=== PATIENT | female | born 1965 | race Caucasian/White ===

== ENCOUNTER 2022-03-04 16:01 | Outpatient (CLI) | payer BC, SELFPAY ==
[2022-03-04 17:28] LABS: Albumin* 5.1 g/dL (3.3-5.0); Chloride* 102 mmol/L (96-114); Potassium* 4.7 mmol/L (3.6-5.1); Sodium* 139 mmol/L (135-149)
[2022-03-04 17:31] LABS: Alanine Aminotransferase* 30 U/L (4-35); Alkaline Phosphatase* 67 U/L (40-150); Aspartate Amino Transferase* 61 U/L (12-35); Blood Urea Nitrogen* 16 mg/dL (7-30); Calcium* 10.3 mg/dL (8.4-10.6); Carbon Dioxide* 30 mmol/L (20-32); Cholesterol* 269 mg/dL (90-199); Creatinine* 0.9 mg/dL (0.5-1.5); Estimated Glomerular Filt Rate 74 ml/min; Glucose* 97 mg/dL (60-115); Total Protein* 7.8 g/dL (6.0-8.3); Triglycerides* 218 mg/dL (40-149)
[2022-03-04 17:32] LABS: HDL Cholesterol* 58 mg/dL (>=50); LDL Cholesterol Calculated 167 mg/dL (<100)
[2022-03-04 17:48] LABS: Vitamin D 25 Hydroxy* 87 ng/mL (30-80)
== END 2022-03-04 16:02 | disposition home or self-care (01) ==
PROVIDERS: PCP Family Medicine; Visit Provider Family Medicine
DX: Z00.00 Encounter for general adult medical examination without abnormal findings (principal); E78.5 Hyperlipidemia, unspecified; E55.9 Vitamin D deficiency, unspecified; M85.80 Other specified disorders of bone density and structure, unspecified site; E03.9 Hypothyroidism, unspecified; I10 Essential (primary) hypertension; R53.83 Other fatigue
CPT/HCPCS: 80053; 80061; 82306; 84443

== ENCOUNTER 2022-05-05 14:36 | Outpatient (CLI) | payer BC, SELFPAY ==
--- OUTSIDE RECORDS SUMMARY | 2022-05-05 14:38 | XMS_ITS | Clinical Summary ---
:1965 Author Organization [facility] Address [address] [place] [address] Care Team Providers Name Role Phone Elsewhere, Pcp Primary Care Provider Unavailable Source Comments Patient records contain information from all sites at [facility]. For routine questions regarding patient records, call [phone] during business hours, M-F 8:00 AM - 5:00 PM Central Time. Record requests for emergency care only can be directed to [phone] at any time.[facility] Allergies No known active allergies Medications Medication Sig Dispensed Refills Start Date End Date Status cholecalciferol (VITAMIN Take 1 capsule 0 02/13/2020 Active D3) 5,000 Unit capsule (5,000 Units total) by mouth daily. Hold until taking oral diet. Additional Information Patient not taking. Reported on 03/25/2020 fish oil 500 mg capsule Take 1 capsule (500 mg total) by 0 02/13/2020 Active mouth daily. Hold until taking oral diet. Additional Information Patient not taking. Reported on 03/25/2020 lisinopriL (PRINIVIL,ZESTRIL) 10 mg 1 tablet (10 mg total) by 2 02/13/2020 Active tablet gastric tube route daily. Additional Information Patient taking differently: 10 mg oral Daily, Other, Reported on 06/06/2020 acetaminophen (TYLENOL) 500 mg 2 tablets (1,000 mg total) 0 02/13/2020 Active tablet by gastric tube route every 6 (six) hours. Additional Information Patient taking differently: 1,000 mg oral Every 6 hours, Other, Reported on 06/06/2020 ibuprofen (ADVIL,MOTRIN) 200 mg capsule Take 600 mg by mouth every 6 0 Active (six) hours as needed for pain. Active Problems Problem Noted Date Anemia Posthemorrhagic Acute (Blood Loss Anemia) 02/09 Encounter For Screening For Other Viral Diseases (COVI D-19) 01/17/2020 Overview: Added automatically from request for monster bustos [id number] Obstructive Sleep Apnea Adult 12/14/2018 Hypertension Essential Primary 12/14/2018 Osteomyelitis Mandible 12/14/2018 Alcohol Use Unspecified With Unspecified Alcohol Induc ed Disorder 12/14/2018 Osteomyelitis Mandible Chronic 12/13/2018 Overview: Added automatically from request for monster bustos [id number] Social History Tobacco Use Types Packs/Day Years Used Date Smoking Tobacco: Former Cigarettes 1 35 11/21 - 09/25/2019 Smokeless Tobacco: Never Alcohol Use Standard Drinks/Week Comments Yes 14 (1 standard drink = 0.6 oz pure alcoh ol) Sex Assigned at Date Recorded Female 12/22/2018 12:54 PM CDT Last Filed Vital Signs Vital Sign Reading Time Taken Comments Blood Pressure 153/93 06/06/2020 1:20 PM CDT Pulse 69 06/06/2020 1:25 PM CDT Temperature 36.5 ??C (97.7 ??F) 06/06/2020 11:50 AM CDT Respiratory Rate 19 06/06/2020 12:55 PM CDT Oxygen Saturation 96% 06/06/2020 1:25 PM CDT Inhaled Oxygen Concentration - - Weight 81.4 kg (179 lb 7.3 oz) 06/06/2020 8:30 AM CDT Height 173.5 cm (5' 8.31) 06/06/2020 8:30 AM CDT Body Mass Index 27.04 06/06/2020 8:30 AM CDT Plan of Treatment Upcoming Encounters Date Type Specialty Care Team Description 05/12/2022 Appointment Radiology Jamel Terrazas APRN, C.N.P., D. N.P. [address] [place] [phone] (Vasiliy ac) 05/12/2022 Appointment Oral and Maxillofacial Issac Woodward, Leo Cline, D.D.S. [address] [place] [phone] (Vasiliy ac) Health Maintenance Due Date Last Done Comments CT Colonography 1965 Cologuard 1965 Colonoscopy 1965 Colorectal Cancer Screening 1965 FIT 1965 Hepatitis B Vaccines (1 of 1965 3 - 3-dose series) Hepatitis C Screening 1965 Lipid (Cholesterol) 1965 Screening Lung Cancer Screening 1965 Mammogram 1965 Office Visit for Blood 1963 Pressure Check / Re-check COVID-19 Vaccine (#1) 1965 Zoster Vaccines (1 of 2) 2013 Potassium Level 02/11/2021 02/12/2020, 02/10/2020, 02/09/2020, Additional history exists Sodium Level 02/11/2021 02/12/2020, 02/10/2020, 02/09/2020, Additional history exists Depression Screening 08/22/2021 (Annual PHQ-2) Creatinine Level 05/11/2022 05/11/2021, 02/12/2020, 02/10/2020, Additional history exists Influenza Vaccine (#1) 2022 09/07/2019 Fasting Glucose for 02/11/2023 02/12/2020, 02/10/2020, Diabetes Screening 02/09/2020, Additional history exists DTaP,Tdap,and Td Vaccines 09/07/2029 09/07/2019 (2 - Td or Tdap) HIV Screening Completed 12/14/2018 Pneumococcal vaccine (0-64 Aged Out No lo nger eligible years) based on patient 's age to complete this topic Medical Devices Implanted Type Area Public Health Device Identifier Shelf Model / Expiration Serial / Date Lot Cplr Tioga Vasc Anstm 3 - [id number] Hardware e.g. Right: Sy novis [id number] 07/07/2024 [id number] / Implanted: Qty: 1 on 02/07/2020 by Issac Mo M.D., D.D.S. at [facility] pins/screws/r Neck / ods [id number] Abtmnt Hl Brnmk Granite Polisher Machine 4.5x5.0 - [id number] Hardware e.g. N obel [employer] 03/22/2023 [id number] / Implanted: Qty: 1 on 06/06/2020 by Anand Meier M.D., D.D.S. at [facility] pins/screws/r / ods [id number] Ips Implant Mandible Misc LORE Damon [id number] / Implanted: Qty: 1 on 02/07/2020 by Issac oM M.D., D.D.S. at [facility] Prosthesis / Insurance Payer Benefit Plan Subscriber ID Effective Phone Address Typ e / Group Dates GENERIC GENERIC [id number] 2020-Pres [phone] n[address] COMMERCIAL VISION PLAN ent [phone] [place] [address] BLUE CROSS BLUE [place] [id number] 2021-Pres [phone] [address] PPO SHIELD ent [phone] [place] [address] Advance Directives For more information, please contact: [phone] Latest Code Status on File Code Status Date Activated Date Inactivated Comments Full Code 02/07/2020 6:14 PM 02/13/2020 3:58 PM Full Code: Discussed Care Teams Transactional Paralegal Relationship Specialty Start Date End Date Elsewhere, Pcp PCP - General Family Medicine 09/22/20
--- OUTSIDE RECORDS SUMMARY | 2022-05-05 14:38 | XMS_ITS | Encounter Summary ---
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 N.P. [address] [place] [phone] (Wo rk) 05/12/2022 Appointment Oral and Maxillofacial Issac Woodward, Surgery Marlyn, D.D.S. [address] [place] [phone] (Wo rk) documented as of this encounter Procedures Procedure Name Priority Date/Time Associated Comments Diagnosis ORAL AND MAXILLOFACIAL Routine 05/11/2021 12:00 R esults for this SURGERY IMAGE EXAM AM CDT procedure are in the results section. documented in this encounter Results Face, Mouth-Engine Inspector Image Exam (05/11/2021 12:00 AM CDT) Specimen (Source) Anatomical Location Collection Method / Collectio n Time Received Time / Laterality Volume Narrative IIMS - 05/12/2021 11:26 AM CDT This order has been created and auto-finalized to support the import of images acquired without order. The clini nury documentation to support these images can be found on the encounter benny t produced images. Provider Not In System IMG NON RAD IMAGING PROCEDUR ES Performing Organization Address City/State/ZIP Code Phon e Number IIMS IIMS NA documented in this encounter Visit Diagnoses Not on filedocumented in this encounter Care Teams Gaming Cashier Relationship Specialty Start Date End Date Elsewhere, Pcp PCP - General Family Medicine 09/22/20 documented as of this encounter
--- OUTSIDE RECORDS SUMMARY | 2022-05-05 14:38 | XMS_ITS | Encounter Summary ---
:1965 Author Organization [facility] Address [address] [place] [address] Care Team Providers Name Role Phone Elsewhere, Pcp Primary Care Provider Unavailable Encounter Details Date Type Department Care Team Description 09/21/2021 Clinical Communication Division of Oral and Crissy, Issac Maxillofacial Surgery in S, Jerilyn. , D.D.S. [place], [place] [address] [facility] [address] [place] [phone] Social History Tobacco Use Types Packs/Day Years Used Date Smoking Tobacco: Former Cigarettes 1 35 11/21 - 09/25/2019 Smokeless Tobacco: Never Alcohol Use Standard Drinks/Week Comments Yes 14 (1 standard drink = 0.6 oz pure alcoh ol) Sex Assigned at Date Recorded Female 12/22/2018 12:54 PM CDT documented as of this encounter Miscellaneous Notes Telephone Encounter - Alyssa Salas - 09/21/2021 11:04 AM CST Patient called in about $8,307 that was supposed to be written off. Request sent on 12/09/2020 via e-mail. At this time, billing submitted the expulsion on 09/18/2021. It will take up to 10 business days to process I was told. They did not know why it took so long to process. IAC CATH RN documented in this encounter Plan of Treatment Upcoming Encounters Date Type Specialty Care Team Description 05/12/2022 Appointment Radiology Jamel Terrazas APRN, C.N.P., D. N.P. [address] [place] [phone] (Vasiliy ac) 05/12/2022 Appointment Oral and Maxillofacial Issac Woodward, Surgery Marlyn, D.D.S. [address] [place] [phone] (Vasiliy ac) documented as of this encounter Visit Diagnoses Not on filedocumented in this encounter Care Teams Lead Engineer Relationship Specialty Start Date End Date Elsewhere, Pcp PCP - General Family Medicine 09/22/20 documented as of this encounter
--- OUTSIDE RECORDS SUMMARY | 2022-05-05 14:38 | XMS_ITS | Encounter Summary ---
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 N.P. [address] [place] [phone] (Wo rk) 05/12/2022 Appointment Oral and Maxillofacial Issac Woodward, Surgery Marlyn, D.D.S. [address] [place] [phone] (Wo rk) documented as of this encounter Procedures Procedure Name Priority Date/Time Associated Comments Diagnosis ORAL AND MAXILLOFACIAL Routine 05/11/2021 12:05 R esults for this SURGERY IMAGE EXAM AM CDT procedure are in the results section. documented in this encounter Results Video-Face, Mouth-Fish Hatchery Superintendent Image Exam (05/11/2021 12:05 AM CDT) Specimen (Source) Anatomical Location Collection [...] on filedocumented in this encounter Care Teams Bumper Straightener Relationship Specialty Start Date End Date Elsewhere, Pcp PCP - General Family Medicine 09/22/20 documented as of this encounter
--- OUTSIDE RECORDS SUMMARY | 2022-05-05 14:39 | XMS_ITS | Encounter Summary ---
:1965 Author Organization [facility] Address [address] [place] [address] Care Team Providers Name Role Phone Elsewhere, Pcp Primary Care Provider Unavailable Encounter Details Date Type Department Care Team Description 09/25/2020 Silent Schedule Department of Dental Rachel Novak, Specialties in [facility] [place] [facility] [address] [place] [phone] Social History Tobacco Use Types Packs/Day Years [...] Jamel Terrazas APRN, C.N.P., D. N.P. [address] [place] [phone] (Vasiliy ac) 05/12/2022 Appointment Oral and Maxillofacial Issac Woodward, Surgery Marlyn, D.D.S. [address] [place] [phone] (Vasiliy ac) documented as of this encounter Procedures Procedure Name Priority Date/Time Associated Diagnosis Comme nts MEDICAL PERIAPICAL Routine 09/25/2020 5:25 PM Osteomyelitis Ma ndible Results for this WATER SERVER procedure are i n the results section. documented in this encounter Results Periapical Medical (09/25/2020 5:25 PM WATER SERVER) Specimen (Source) Anatomical Location Collection Method / Collectio n Time Received Time / Laterality Volume Narrative Rachel Novak D.D.S. - 09/25/2020 5:25 PM WATER SERVER Periapical image(s) taken tooth number(s): 30. Notes Definitive mandibular resection prosthes is was inserted and verified with periapical radiograph. Rachel Novak D.D.S. DENTAL ORDERABLES documented in this encounter Visit Diagnoses Not on filedocumented in this encounter Care Teams Import/Export Administrator Relationship Specialty Start Date End Date Elsewhere, Pcp PCP - General Family Medicine 09/22/20 documented as of this encounter
--- OUTSIDE RECORDS SUMMARY | 2022-05-05 14:39 | XMS_ITS | Encounter Summary ---
:1965 Author Organization [facility] Address [address] [place] [address] Care Team Providers Name Role Phone Unavailable Primary Care Provider Unavailable Encounter Details Date Type Department Care Team Description 05/26/2020 Clinical Communication Department of Dental Rachel Novak Specialties in [place], [place] [address] [place] [phone] Social History Tobacco Use Types Packs/Day Years Used Date Smoking Tobacco: Every Day Cigarettes 1 35 S tarted: 12/14/1984 Smokeless Tobacco: Never Alcohol Use Standard Drinks/Week Comments Yes 14 (1 standard drink = 0.6 oz pure alcoh ol) Sex Assigned at Date Recorded Female 12/22/2018 12:54 PM CDT documented as of this encounter Miscellaneous Notes Telephone Encounter - Lisa Cabrera L.D.A. - 05/26/2020 10:11 AM CDT Paola Mcmullen would like a formal estimate, but will not need to make a pre-service deposit because they are in one of the following categories: development, executive, recall, or have all medical codes. Please finalize and send the formal estimate(s) to the patient. Estimate ID#: [id number] documented in this encounter Plan of Treatment Upcoming Encounters Date Type Specialty Care Team Description 05/12/2022 Appointment Radiology Jamel Terrazas APRN, C.N.P., D. N.P. [address] [place] [phone] (Wo rk) 05/12/2022 Appointment Oral and Maxillofacial Issac Woodward, Surgery Marlyn, D.D.S. [address] [place] [phone] (Wo rk) documented as of this encounter Visit Diagnoses Not on filedocumented in this encounter
--- OUTSIDE RECORDS SUMMARY | 2022-05-05 14:39 | XMS_ITS | Encounter Summary ---
:[address] [facility] Address [address] [place] [address] Care Team Providers Name Role Phone Unavailable Primary Care Provider Unavailable Reason for Visit Auth/Cert Specialty Diagnoses / Procedures Referred By Contact Refer red To Contact Diagnoses Encounter For Screening For Other Viral Diseases (COVID-19) Osteomyelitis Mandible Encounter For Screening For Other Viral Diseases (COVID-19) [Z11.59] Procedures ID UNLISTED PROC DENTOALVEOLAR PLACEMENT UNCOVERING AND HEALING ABUTMENT WITH ENDOSSEOUS IMPLANT Referral ID Status Reason Start Date Expiration Date Visits Requ ested Visits Authorized [id number] 1 1 Encounter Details Date Type Department Care Team Description 06/06/2020 Anesthesia Event ZZRST BUTCH MOODY OR Fabi Bowens, [address] [facility] M.D. [place], [place] [address] [facility] [phone] [place], [place] [phone] (Wo rk) Anesthesia Record Procedure Summary Procedure Name Responsible Anesthesia Start Anesthesia Stop Anesthesiologist Time Time PLACEMENT UNCOVERING Fabi Bowens, 06/06/20 1026 05/22 02/08 1143 AND HEALING ABUTMENT M.D. WITH ENDOSSEOUS IMPLANT. (Right: Mouth) Events Date Time Event Comment 06/06/2020 0831 1026 An Start Machine/Equipmen t Checked Infection Precautions Foll owed Procedure/Site Verified NPO Sta tus Verified Supine Standard ASA Mon itors Applied 1026 In Room 1041 An Induction 1044 An Intubation 1045 Turnover to Proceduralist 1055 Proc Start 1131 Proc Fin 1138 Extubation/Airway Removed 1138 Airway Removal Criteria Met 1143 an stop data 1143 An End I completed my h andoff to the receiving staff during [facility] we 1. Identified the patient 2. Ident ified the responsible provider 3. Revi ewed the pertinent medical history 4. Discussed the surgical course 5. Review ed intra-op anesthesia management and i ssues during anesthesia 6. Set expectati ons for post-procedure period 7. Allowe d opportunity for questions and ac knowledgement of understanding. 1144 Out of Room Name Total fentanyl injection 50 mcg/mL 150 mcg lidocaine 2% (mg) injection 100 mg succinylcholine 20 mg/mL injection 17 mg ePHEDrine PF 5 mg/mL syringe injection 5 mg ondansetron 4 mg/2 mL injection 4 mg ceFAZolin 2 g metroNIDAZOLE 500 mg IVPB 500 mg propofol 10 mg/mL injection 200 mg propofol 10 mg/mL infusion 540.5 mg remifentaniL 20 mcg/mL in NaCl 0.9% 100 mL infusion (U LTIVA) 0.85 mg Lactated Ringers Free Drip 750 mL Agents No agents on file. Blood No blood administrations on file. Lines, Drains, and Airways Type Details Placement Removal NG/OG Tube 02/07/20; 1445; 02/07/20 1445 by Nasogastric; 12 Fr; Nare, Nisa Coats, Right R.N. (RETIRED) Incision 12/14/18; 0902; Mouth; 12/14/18 0902 by 05/12 1418 by Right; 05/12/21 (Removed [facility] Valenzuela, [facility] by background completion R.N. nd, [facility] eduling utility); 1418 (Removed by Autom ated Batch Job background completion utility) (RETIRED) Incision 02/07/20; 1143; Neck; 02/07/20 1143 by 1418 by Bilateral; 05/12/21 [facility]isa Coats, [facility] (Removed by background R.N. nd, [facility] uling completion utility); 1418 Automa shira Batch Job (Removed by background completion utility) (RETIRED) Incision 02/07/20; 1304; Leg; Left; 02/07/20 1304 by 0 05/12/21 1418 by Soft rollXeroformACE Nisa Coats, [facility] BandageCam boot; 05/12/21 R.N. nd, Sc heduling (Removed by background Automated Batch Job completion utility); 1418 (Removed by background completion utility) Peripheral IV Placement Date: 06/06/20; 06/06/20 1008 by 06/06 1340 by Placement Time: 1008; Lisa Cuellar Sanchez, Carly M, Catheter Size: 18 G; R.N. R.N. Orientation: Left; Location: Forearm; Site Prep: Chlorhexidine (Preferred); Technique: Anatomical landmarks (ARTIE); Insertion Attempts: 1; Removal Date: 06/06/20; Removal Time: 1340 (RETIRED) Incision 06/06/20; 1057; Mouth; 06/06/20 1057 by 05/12 1418 by Right; 05/12/21 (Removed Amy Sung [facility] by background completion I., R.N. nd, Memo eduling utility); 1418 (Removed by Autom ated Batch Job background completion utility) documented in this encounter Social History Tobacco Use Types Packs/Day Years Used Date Smoking Tobacco: Former Cigarettes 1 35 11/21 - 09/25/2019 Smokeless Tobacco: Never Alcohol Use Standard Drinks/Week Comments Yes 14 (1 standard drink = 0.6 oz pure alcoh ol) Sex Assigned at Date Recorded Female 12/22/2018 12:54 PM CDT documented as of this encounter OR Notes Anesthesia Postprocedure Evaluation - Fabi Bowens M.D. - 06/06/2020 12:17 PM CDT Patient: Paola Mcmullen Procedure Summary Date: 06/06/20 Room / Location: [address] 03 [facility] in [place], [place] Anesthesia Start: 1026 Anesthesia Stop: 1143 Procedure: PLACEMENT UNCOVERING AND HEALING ABUTMENT WITH ENDOSSEOUS IMPLANT. (Right Mouth) Diagnosis: Encounter For Screening For Other Viral Diseases (COVID-19) (Encounter For Screening For Other Viral Diseases (COVID-19) [Z11.59].) Provider: Issac Woodward M.D., D.D.S. Responsible Provider: Fabi Bowens M.D. Anesthesia Type: general ASA Status: 3 Anesthesia Type: general Last vitals Vitals Value Taken Time BP 178/114 06/06/2020 12:15 PM Temp 36.5 ??C 06/06/2020 11:50 AM Pulse 64 06/06/2020 12:16 PM Resp 16 06/06/2020 12:16 PM SpO2 95 % 06/06/2020 12:16 PM Vitals shown include unvalidated device data. Please reference Vitals flowsheet for most recent vital signs. Anesthesia Post Evaluation Patient Disposition: dismissal Cardiovascular status: hemodynamics (HR & BP) acceptable Respiratory status: patent airway with spontaneous effort Temperature: normothermic Oxygen requirements: room air Level of consciousness: awake Pain score: pain adequately controlled and/or at baseline Post Op nausea/vomiting: none Hydration status: euvolemic Anesthesia Procedure Notes - Ronit Baker M.D., M.B.A. - 06/06/2020 10:58 AM CDTAssociated Order(s): Airway Airway Date/Time: 06/06/2020 10:44 AM Performed by: Ronit Baker M.D., M.B.A. Authorized by: Fabi Bowens M.D. Patient location during procedure: OR / Procedure Area PROCEDURE DETAILS: Mask difficulty assessment: easy mask Final airway type: video laryngoscope Laryngeal Manipulation: no Final best view of glottic structures - Cormack/Lehane Score: grade 1 ETT location: oral VL device: glide scope [place] scope blade size: 3 Adult tube size: 6 STOCKTON Airway Tube Type: polar preformed tube. Cuffed: yes Number of attempt to successful placement: 1 Airway confirmation: bilateral breath sounds, positive ETCO2 and bilateral chest rise Other previous techniques attempted: none PRE PROCEDURE DETAILS: Pre evaluation for airway management: procedure Urgency: elective Preop assessment of probable difficulty: no difficulty anticipated Preoxygenation: bag valve mask SEDATION / ANESTHESIA Anesthesia method: anesthesia POST PROCEDURE DETAILS: Procedure outcome: successful Airway event: no complications ATTESTATION STATEMENT The cyber security consultant saw and evaluated the patient and discussed the findings and plan with the resident or fellow. The cyber security consultant agrees with the findings and plan. The cyber security consultant was present for the entireprocedure(s). Anesthesia Preprocedure Evaluation - Fabi Bowens M.D. - 06/06/2020 8:30 AM CDT Preprocedure Anesthesia & H&P Assessment Procedure Summary Date/Time: 06/06/20912 Procedure: PLACEMENT UNCOVERING AND HEALING ABUTMENT WITH ENDOSSEOUS IMPLANT. (Right Mouth) Diagnosis: Encounter For Screening For Other Viral Diseases (COVID-19) [Z11.59] Pre-op diagnosis: Encounter For Screening For Other Viral Diseases (COVID-19) [Z11.59]. Location: [place] [address] / [facility] in [place], [place] Provider: Issac Woodward M.D., D.D.S. Pertinent components of the patient's history including current problem list, medical history, surgical history, family history, social history, medications and allergies were reviewed. Present illnessand pre-op diagnosis were confirmed. The planned surgery / procedure was verified with the patient /legal guardian. The patient's general health condition remains unchanged PROBLEM LIST Relevant Problems CV (+) Hypertension Essential Primary RESP (+) Obstructive Sleep Apnea Adult HEME (+) Anemia Posthemorrhagic Acute (Blood Loss Anemia) OBJECTIVE PHYSICAL EXAMINATION Airway (HEENT) Mallampati: III TM Distance: >3 FB Neck ROM: Full Mouth Opening: >3 cm Upper Lip Bite Test Class: II Cardiovascular Rhythm: Regular Rate: Normal Cardiovascular Assessment: cardiovascular normal Functional Capacity: >4 METS Pulmonary Pulmonary Assessment: Clear General / Constitutional Normal Neurological Neurologic Assessment:??alert and alert and oriented x 3 Dental Normal ASSESSMENT / PLAN ANESTHESIA PLAN ASA: 3 Anesthesia Plan: general Patient seen and allergies reviewed, anesthesia plan and risks discussed directly with patient /legal guardian or through an diplomatic interpreter/translator. The use of blood products not discussed Approval to Proceed: approved for anesthesia documented in this encounter Plan of Treatment Upcoming Encounters Date Type Specialty Care Team Description 05/12/2022 Appointment Radiology Jamel Terrazas APRN, C.N.PAmara, D. N.P. [address] [place] [phone] (Vasiliy ac) 05/12/2022 Appointment Oral and Maxillofacial Issac Woodward, Surgery Marlyn, D.D.S. [address] [place] [phone] (Vasiliy ac) documented as of this encounter Procedures Procedure Name Priority Date/Time Associated Diagnosis Comme nts AIRWAY MANAGEMENT Routine 06/06/2020 10:58 AM Res ults for this CDT procedure are i n the results section. documented in this encounter Results Airway (06/06/2020 10:58 AM CDT) Narrative Ronit Baker M.D., M.B.A. - 05/22 10:58 AM CDT Ronit Baker M.D., M.B.A. ? 06/06/2020 10:59 AM Airway Date/Time: 06/06/2020 10:44 AM Performed by: Ronit Baker M.D., M.B.A. Authorized by: Fabi Bowens M. D. Patient location during procedure: OR / Procedure Area PROCEDURE DETAILS: Mask difficulty assessment: easy mask Final airway type: video laryngoscope Laryngeal Manipulation: no ?? Final best view of glottic structures - Cormack/Lehane Score: grade 1 ETT location: oral VL device: glide scope [place] scope blade size: 3 Adult tube size: 6 STOCKTON Airway Tube Type: polar preformed t ube. Cuffed: yes Number of attempt to successful placemen t: 1 Airway confirmation: bilateral breath so unds, positive ETCO2 and bilateral chest rise Other previous techniques attempted: non e PRE PROCEDURE DETAILS: Pre evaluation for airway management: pr ocedure Urgency: elective Preop assessment of probable difficulty: no difficulty anticipated Preoxygenation: bag valve mask SEDATION / ANESTHESIA Anesthesia method: anesthesia POST PROCEDURE DETAILS: ? Procedure outcome: successful ?? Airway event: no complications ATTESTATION STATEMENT The cyber security consultant saw and evaluated the pat ient and discussed the findings and plan with the resident or fellow. Th e cyber security consultant agrees with the findings and plan. The cyber security consultant was pr esent for the entire procedure(s). Fabi Bowens M.D. ANESTHESIA ORDERABLES documented in this encounter Visit Diagnoses Not on filedocumented in this encounter Administered Medications Inactive Administered Medications - up to 3 most recent administrations Medication Order MAR Action Action Date Dose Rate Site ceFAZolin injection (ANCEF) Given 06/06/2020 10:52 AM CDT 2 g As needed, Starting on Tue06/06/20 at 1052, Anesthesia Intra-op ePHEDrine (PF) injection Given 06/06/2020 10:45 AM CDT 5 mg intravenous, As needed, Starting on Tue06/06/20 at 1045, Anesthesia Intra-op fentaNYL injection (SUBLIMAZE) Given 06/06/2020 10:41 AM CDT 150 mcg intravenous, As needed, Starting on Tue06/06/20 at 1041, Anesthesia Intra-op lactated ringers New Bag 06/06/2020 10:36 AM CDT intravenous, Continuous Infusion: Per Instructions PRN, Starting on Tue06/06/20 at 1036, Anesthesia Intra-op lidocaine (PF) (cardiac) injection Given 06/06/2020 10:41 AM CDT 100 mg intravenous, As needed, Starting on Tue06/06/20 at 1041, Anesthesia Intra-op metroNIDAZOLE in NaCl (iso-osm) IVPB Given 06/06/2020 10:52 AM C DT 500 mg (FLAGYL) Administer over 30 Minutes, As needed, Starting on Tue06/06/20 at 1052, Anesthesia Intra-op ondansetron (PF) injection (ZOFRAN) Given 06/06/2020 11:32 AM CDT 4 mg intravenous, As needed, Starting on Tue06/06/20 at 1132, Anesthesia Intra-op propofol 10 mg/mL infusion Rate/Dose 06/06/2020 100 mcg/kg/min 48.8 mL/hr (DIPRIVAN) Change 11:20 AM CDT Continuous Infusion: Per Instructions PRN, Starting on Tue06/06/20 at 1041, Anesthesia Intra-op Rate/Dose Change 06/06/2020 10:49 AM CDT 140 mcg/kg/min 68.4 mL/hr New Bag 06/06/2020 10:41 AM CDT 150 mcg/kg/min 73.3 mL/hr propofoL injection (DIPRIVAN) Given 06/06/2020 10:41 AM CDT 200 mg As needed, Starting on Tue06/06/20 at 1041, Anesthesia Intra-op remifentaniL 20 mcg/mL in NaCl New Bag 06/06/2020 10:41 AM 0.2 mcg/kg/min 48.8 mL/hr 0.9% 100 mL infusion (ULTIVA) CDT Continuous Infusion: Per Instructions PRN, Starting on Tue06/06/20 at 1041, Anesthesia Intra-op succinylcholine (PF) injection (ANECTINE ) Given 06/06/2020 10:41 AM CDT 17 mg intravenous, As needed, Starting on Tue06/06/20 at 1041, Anesthesia Intra-op documented in this encounter
--- OUTSIDE RECORDS SUMMARY | 2022-05-05 14:39 | XMS_ITS | Encounter Summary ---
:1965 Author Organization [facility] Address [address] [place] [address] Care Team Providers Name Role Phone Elsewhere, Pcp Primary Care Provider Unavailable Reason for Referral MRI/CAT/PET Scan (Routine) - Closed Specialty Diagnoses / Procedures Referred By Contact Refer red To Contact Radiology Diagnoses Osteomyelitis Mandible Chronic Issac Woodward M.D., [facility] Procedures CT Head Neck with IV Contrast D.D.S. [address] [place] [phone] Referral ID Status Reason Start Date Expiration Date Visits Requ ested Visits Authorized [id number] Closed 10/28/2020 10/28/2021 1 1 Reason for Visit MRI/CAT/PET Scan (Routine) - Closed Specialty Diagnoses / Procedures Referred By Contact Refer red To Contact Radiology Diagnoses Osteomyelitis Mandible Chronic Issac Woodward M.D., [facility] Procedures CT Head Neck with IV Contrast D.D.S. [address] [place] [phone] Referral ID Status Reason Start Date Expiration Date Visits Requ ested Visits Authorized [id number] Closed 10/28/2020 10/28/2021 1 1 Encounter Details Date Type Department Care Team Description 05/11/2021 Hospital Encounter Department of Matteo Woodward Mandible Radiology, Ernst Raymundo M.D., [facility], in D.D.S. [place], [place] [address] [place] [address] [place] [phone] Social History Tobacco Use Types Packs/Day Years Used Date Smoking Tobacco: Former Cigarettes 1 35 /2 12/1984 - 09/25/2019 Smokeless Tobacco: Never Alcohol Use Standard Drinks/Week Comments Yes 14 (1 standard drink = 0.6 oz pure alcoh ol) Sex Assigned at Date Recorded Female 12/22/2018 12:54 PM CDT documented as of this encounter Medications at Time of Discharge Medication Sig Dispensed Refills Start Date End Date acetaminophen (TYLENOL) 500 2 tablets (1,000 mg 0 02/13/2020 mg tablet total) by gastric tube route every 6 (six) hours. cholecalciferol (VITAMIN D3) Take 1 capsule 0 5,000 Unit capsule (5,000 Units total) by mouth daily. Hold until taking oral diet. fish oil 500 mg capsule Take 1 capsule (500 0 mg total) by mouth daily. Hold until taking oral diet. ibuprofen (ADVIL,MOTRIN) 200 Take 600 mg by 0 mg capsule mouth every 6 (six) hours as needed for pain. lisinopriL 1 tablet (10 mg 2 02/13/2020 (PRINIVIL,ZESTRIL) 10 mg total) by gastric tablet tube route daily. documented as of this encounter Plan of Treatment Upcoming Encounters Date Type Specialty Care Team Description 05/12/2022 Appointment Radiology Jamel Terrazas APRN, C.N.P., D. N.P. [address] [place] [phone] ( yashira) 05/12/2022 Appointment Oral and Maxillofacial Issac Woodward Surgery M.D., D.D.S. [address] [place] [phone] ( yashira) Scheduled Orders Name Type Priority Associated Diagnoses Order S chedule Creatinine, POCT Point of Care Routine Routine la b collection Testing-Docked (next collect ion) for Device 1 Occurrences s tarting 05/11/2021 unti l 05/11/2021 documented as of this encounter Procedures Procedure Name Priority Date/Time Associated Diagnosis Comme nts [place] CT HEAD/BRAIN RAD - Routine 05/11/2021 10:17 Osteomyelitis Resul ts for this W [facility] (most inpatients AM CDT Mandible Chronic procedu re are in and all the results outpatients) section. CREATININE, Routine 05/11/2021 9:14 Results for this POCT, B AM CDT procedure are i n the results section. CREATININE, Routine 05/11/2021 9:14 Results for this POCT, B AM CDT procedure are i n the results section. documented in this encounter Results CT Head Neck with IV Contrast (05/11/2021 10:17 AM CDT) Anatomical Region Laterality Modality Head and Neck, Neuroradiology RST LOS, N/A C omputed Tomography, Computed Neuroradiology ARZ LOS, Neuroradiology T omography FLA [facility] Specimen (Source) Anatomical Collection Method Collection Time Re ceived Time Location / / Volume Laterality 05/11/2021 10:29 AM CDT Impressions 05/11/2021 10:39 AM CDT Expected interval evolution of postoperative changes related to right segmental mandibulectomy with fibu lar graft reconstruction with interval healing including fusion of the fibular graft with the chick[place]om[place] mandible both anteriorly and posteriorly. Stable appea preston of the mandibular fusion hardware. Narrative 05/11/2021 10:39 AM CDT EXAM: CT HEAD NECK WITH IV CONTRAST COMPARISON: CT of the neck with IV contr ast dated 03/26/2020. FINDINGS: Again seen are postoperative c hanges of right segmental mandibular resection with mild osseous fibular free flap graft with plate and screw fixation performed for history of chroni c mandibular osteomyelitis. Surgical hardware appears intact and is unchanged in position. Since 03/26/2020, there has been further interval healing with o sseous fusion of the fibular graft with the [place] mandible both anteriorly and posteriorly. Expected evolution of postoperative changes with resolution of mild fat stranding and platysma thickening within the right neck. Mildly edematous appearance of the right submandibular gland has also resolved. S table mildly heterogeneous appearance of the right parotid gland when compared wi th the left. Asymmetric atrophy of the right temporalis and masseter muscles, a nd to a lesser degree the pterygoid musculature. No additional significant interval duval e. Minimal bilateral maxillary sinus mucosal thickening. Multilevel cervical spondylotic changes. Procedure Note Ismael Owens M.D. - 1 EXAM: CT HEAD NECK WITH IV CONTRAST COMPARISON: CT of the neck with IV contr ast dated 03/26/2020. FINDINGS: Again seen are postoperative c hanges of right segmental mandibular resection with mild osseous fibular free flap graft with plate and screw fixation performed for history of chroni c mandibular osteomyelitis. Surgical hardware appears intact and is unchanged in position. Since 03/26/2020, there has been further interval healing with o sseous fusion of the fibular graft with the [place] mandible both anteriorly and posteriorly. Expected evolution of postoperative changes with resolution of mild fat stranding and platysma thickening within the right neck. Mildly edematous appearance of the right submandibular gland has also resolved. S table mildly heterogeneous appearance of the right parotid gland when compared wi th the left. Asymmetric atrophy of the right temporalis and masseter muscles, a nd to a lesser degree the pterygoid musculature. No additional significant interval duval e. Minimal bilateral maxillary sinus mucosal thickening. Multilevel cervical spondylotic changes. IMPRESSION: Expected interval evolution of postopera tive changes related to right segmental mandibulectomy with fibu lar graft reconstruction with interval healing including fusion of the fibular graft with the chick[place]om[place] tribe mandible both anteriorly and posteriorly. Stable appea preston of the mandibular fusion hardware. Issac Woodward M.D., D.D.S. IMG CT PROCEDURES Creatinine, POCT (05/11/2021 9:14 AM CDT) P athologist Signature Creatinine, 0.8 0.6 - 1.0 05/11/2021 PCDT POCT, B mg/dL 9:16 AM CDT Comment: ----ADDITIONAL INFORMATION---- Performed at the Point of Care Specimen Anatomical Collection Method Collection Time Receive d Time (Source) Location / / Volume Laterality Blood 05/11/2021 9:14 AM 9:16 CDT AM CDT Unknown Provider LAB POCT ORDERABLES - DEVICE Performing Organization Address City/State/ZIP Code Phon e Number POC [place] [facility] [address] [place] [address] LABS PCDT [facility] [address] [place] [facility] [address] Creatinine, POCT (05/11/2021 9:14 AM CDT) P athologist Signature eGFR-Black/Afri >90 >=60 05/11/2021 [facility] [place], mL/min/BSA 9:16 AM CDT POCT Comment: ----ADDITIONAL INFORMATION---- Estimated GFR calculated using the 2009 CKD_EPI creatinine equation. eGFR Non-Black/, 82 >=60 mL/min/BSA 05/11/2021 9:16 AM CDT [facility] PO[facility] Comment: ----ADDITIONAL INFORMATION---- Estimated GFR calculated using the 2009 CKD_EPI creatinine equation. Specimen Anatomical Collection Method Collection Time Receive d Time (Source) Location / / Volume Laterality Blood 05/11/2021 9:14 AM 9:16 CDT AM CDT Unknown Provider LAB POCT ORDERABLES - DEVICE Performing Organization Address City/State/ZIP Code Phon e Number POC [facility] [place] [address] [place] [address] [place] [address] [place] [facility] [address] documented in this encounter Visit Diagnoses Diagnosis Osteomyelitis Mandible Chronic documented in this encounter Administered Medications Inactive Administered Medications - up to 3 most recent administrations Medication Order MAR Action Action Date Dose Rate Site iohexoL 300 mg iodine/mL solution Given 05/11/2021 10:16 AM CDT 120 mL 1-200 mL (OMNIPAQUE) 1-200 mL, intravenous, Once in imaging, contrast, Starting on Tue05/11/21 at 0900, For 1 dose, Imaging Protocol Orders, Dose per Radiant Medication Guidelines sodium chloride (PF) 0.9 % injection 1-1 00 mL Given 05/11/2021 10:17 AM CDT 35 mL 1-100 mL, intravenous, Once, On Tue05/11/21 at 0915, For 1 dose, Imaging Protocol Orders documented in this encounter Care Teams Paradi Tender Relationship Specialty Start Date End Date Elsewhere, Pcp PCP - General Family Medicine 09/22/20 documented as of this encounter
--- OUTSIDE RECORDS SUMMARY | 2022-05-05 14:39 | XMS_ITS | Encounter Summary ---
:1965 Author Organization [facility] Address [address] [place] [address] Care Team Providers Name Role Phone Unavailable Primary Care Provider Unavailable Reason for Visit Auth/Cert Specialty Diagnoses / Procedures Referred By Contact Refer red To Contact Diagnoses Encounter For Screening For Other Viral Diseases (COVID-19) Osteomyelitis Mandible Encounter For Screening For Other Viral Diseases (COVID-19) [Z11.59] Procedures [place] UNLISTED PROC DENTOALVEOLAR PLACEMENT UNCOVERING AND HEALING ABUTMENT WITH ENDOSSEOUS IMPLANT Referral ID Status Reason Start Date Expiration Date Visits Requ ested Visits Authorized [id number] 1 1 Encounter Details Date Type Department Care Team Description 06/06/2020 Hospital Encounter [facility] OR Issac Woodward S, [address] [facility] [place] Marlyn, [place] [phone] [place] [address] [place] [phone] Social History Tobacco Use Types Packs/Day Years Used Date Smoking Tobacco: Former Cigarettes 1 35 11/21 - 09/25/2019 Smokeless Tobacco: Never Alcohol Use Standard Drinks/Week Comments Yes 14 (1 standard drink = 0.6 oz pure alcoh ol) Sex Assigned at Date Recorded Female 12/22/2018 12:54 PM CDT documented as of this encounter Last Filed Vital Signs Vital Sign Reading [...] Mass Index 27.04 06/06/2020 8:30 AM CDT documented in this encounter Medications at Time of Discharge Medication Sig Dispensed Refills Start Date End Date acetaminophen (TYLENOL) 500 2 tablets (1,000 mg 0 02/13/2020 mg tablet total) by gastric tube route every 6 (six) hours. ibuprofen (ADVIL,MOTRIN) 200 Take 600 mg by 0 mg capsule mouth every 6 (six) hours as needed for pain. lisinopriL 1 tablet (10 mg 2 02/13/2020 (PRINIVIL,ZESTRIL) 10 mg total) by gastric tablet tube route daily. cholecalciferol (VITAMIN D3) Take 1 capsule 0 5,000 Unit capsule (5,000 Units total) by mouth daily. Hold until taking oral diet. fish oil 500 mg capsule Take 1 capsule (500 0 mg total) by mouth daily. Hold until taking oral diet. documented as of this encounter OR Notes Op Note - Issac Woodward M.D., D.D.S. - 06/06/2020 10:55 AM CDT PROCEDURE(S) Endosseous implant (3 implants) uncovering as part of ongoing mandibular reconstruction. SURGEON(S) SUPERVISING SURGEON: Issac Woodward M.D., D.D.S. RESIDENT SURGEON: Anand Bermeo M.D., D.D.S. ANESTHESIA TYPE General. PRE-OPERATIVE DIAGNOSIS History of osteomyelitis, status post right segmental mandibulectomy with fibula free flap reconstruction. POST-OPERATIVE DIAGNOSIS History of osteomyelitis, status post right segmental mandibulectomy with fibula free flap reconstruction. DESCRIPTION OF PROCEDURE The patient was brought to the operating room and placed on the surgical table in a supine position.She was uneventfully nasally intubated. She was prepped and draped in standard fashion. A proceduralpause was performed. Next, a crestal incision was made in the right neomandible so as to split the keratinized tissue, which was reflected medially and laterally in a supraperiosteal plane. Three implants were then identified, and the tissue overlying them was sharply incised to reveal only the implant platform. Again, this occurred in a supraperiosteal plane. The cover screws were removed, and Nobel[employer] Michael III narrow platform 4.5 x 5 mm healing abutments were placed and torqued to 20 Ncm. The soft tissue was then reapproximated using 3-0 Vicryl suture in an interrupted and horizontal mattress fashion. Good hemostasis was observed. The patient was allowed to emerge from anesthesia and was extubated uneventfully in the operating room. She was then transferred to the PACU and later discharged in stable condition having tolerated the procedure and anesthesia without difficulty. Written and verbal postoperative instructions were provided. SPECIMENS No specimens. ESTIMATED BLOOD LOSS No blood loss. TPR: 1 Anand Bermeo M.D., D.D.S. CT CT Job ID: [id number]/mat Brief Op Note - Anand Bermeo M.D., D.D.S. - 06/06/2020 10:55 AM CDT BRIEF OP NOTE Procedure(s) (LRB): PLACEMENT UNCOVERING AND HEALING ABUTMENT WITH ENDOSSEOUS IMPLANT. (Right) Surgeon(s) and Role: * Issac Woodward M.D., D.D.S. - Primary * Anand Bermeo M.D., D.D.S. - Sign Language Instructor Anesthesia Type General Pre-operative Diagnosis Encounter For Screening For Other Viral Diseases (COVID-19) Post-operative Diagnosis Encounter For Screening For Other Viral Diseases (COVID-19) Findings As expected. Complications None Specimens None Drains GI Tubes (Adults) Nasogastric Nare;Right (Active) 02/07/20 1445 Nare;Right Placed by External Staff?: Placed by: Dr. Barrios GI Tube Type: Nasogastric GI Tube Size: 12 Fr Length (cm): Connector Type: Removal Reason: None Estimated Blood Loss 10 mL Implants Implant Name Type Inv. Item Serial No. Director Asset Lot No. LRB No. Used Action ABTMNT HL BRNMK VEGETABLE PREPARER 4.5X5.0 - [id number] Hardware e.g. pins/screws/rods ABTMNT HL BRNMK VEGETABLE PREPARER 4.5X5.0[employer] [id number] Right 1 Implanted ABTMNT HL BRNMK VEGETABLE PREPARER 4.5X5.0 - [id number] Hardware e.g. pins/screws/rods ABTMNT HL BRNMK VEGETABLE PREPARER 4.5X5.0[employer] [id number] Right 1 Implanted ABTMNT HL BRNMK VEGETABLE PREPARER 4.5X5.0 - [id number] Hardware e.g. pins/screws/rods ABTMNT HL BRNMK VEGETABLE PREPARER 4.5X5.0[employer] [id number] Right 1 Implanted Alexis Bermeo M.D., D.D.S. documented in this encounter Plan of Treatment Upcoming Encounters Date Type Specialty Care Team Description 05/12/2022 Appointment Radiology Jamel Terrazas APRN, C.N.PAmara, D. N.P. [address] [place] [phone] (Vasiliy ac) 05/12/2022 Appointment Oral and Maxillofacial Issac Woodward, Surgery Marlyn, D.D.S. [address] [place] [phone] (Vasiliy ac) documented as of this encounter Procedures Procedure Name Priority Date/Time Associated Diagnosis Comme nts ADULT OXYGEN THERAPY Routine 06/06/2020 12:05 PM CDT PLACEMENT UNCOVERING 06/06/2020 10:11 AM Encounter For AND HEALING ABUTMENT CDT Screening For Other WITH ENDOSSEOUS IMPLANT Viral Diseases (COVID-19) Case Notes STAFF DEVELOPMENT COORDINATOR RN [id number] documented in this encounter Visit Diagnoses Diagnosis Encounter For Screening For Other Viral Diseases (COVID-19) - Primary documented in this encounter Admitting Diagnoses Diagnosis Encounter For Screening For Other Viral Diseases (COVID-19) documented in this encounter Administered Medications Inactive Administered Medications - up to 3 most recent administrations Medication Order MAR Action Action Date Dose Rate Site acetaminophen tablet 1,000 mg Given 06/06/2020 9:51 AM CDT 1,000 mg (TYLENOL) 1,000 mg, oral, Once, On Tue06/06/20 at 0945, For 1 dose, Pre-Op labetalol injection 5 mg (NORMODYNE,CHIN DATE) Given 06/06/2020 12:47 PM CDT 5 mg 5 mg, intravenous, As needed, high blood pressure, give 5 mg every 10 minutes as needed for SBP>150 or DBP>95. Max dose 15 mg., Starting on Tue06/06/20 at 1229, PACU (only) Given 06/06/2020 12:34 PM CDT 5 mg oxyCODONE IR tablet 5 mg (ROXICODONE) Given 06/06/2020 12:11 PM CDT 5 mg 5 mg, oral, Every 6 hours PRN, moderate pain or score 4-6 of 10, Starting on Tue06/06/20 at 1205 sodium chloride 0.9 % injection 10 mL 10 mL, intravenous, As needed, line care , Starting on Tue06/06/20 at 0943, Pre-Op, Peripheral Intravenous Catheter and Rapid Infusion Cat heter, prior to blood sampling, post blood transfusion or post blood samplin g sodium chloride 0.9 % injection 3 mL 3 mL, intravenous, As needed, line care, Starting on Tue06/06/20 at 0943, Pre-Op, Prior to and following infusion and betw een multiple consecutive infusions: sodium chloride 0.9 % injection sodium chloride 0.9 % injection 3 mL 3 mL, intravenous, Every 12 hours schedu led, First dose on Tue06/06/20 at 2100, Pre-Op, Peripheral Intravenous Catheter and Rapid Infu stevie Catheter, when no infusion to maintain patency documented in this encounter Active and Recently Administered Medications Times are shown in CDT. Scheduled Medication Order 06/04/2020 06/05/2020 06/06/2020 acetaminophen tablet 1,000 mg (TYLENOL) (COMPLETED) 0951 (Given - Provider: Alisa Guerra R.N.) 1,000 mg, oral, Once, On Tue06/06/20 at 0945, For 1 dose, Pre-O p sodium chloride 0.9 % injection 3 mL 3 mL, intravenous, Every 12 hours schedu led, First dose on Tue06/06/20 at 2100, Pre-Op, Peripheral Intravenous Catheter and Rapid Infusion Catheter, when no infusion to maintain patency PRN Medication Order 06/04/2020 06/05/2020 06/06/2020 acetaminophen tablet 1,000 mg (TYLENOL) 1,000 mg, oral, Every 6 hours PRN, mild pain or score 1-3 of 10, Starting Tue06/06/20 at 1205 fentaNYL injection 25 mcg (SUBLIMAZE) 25 mcg, intravenous, Every 2 min PRN, mo derate pain or score 4-6 of 10, severe pain or score 7-10 of 10, Starting Tue06/06/20 at 1205, PACU (only), Up to maximum total dose of 200 mcg haloperidol lactate injection 1 mg (HALDOL) 1 mg, intravenous, Every 6 hours PRN, na usea, vomiting, Starting Tue06/06/20 at 1205, For 48 hours, Total of 3 doses in 24 hour period. RASS must be -2 or higher to administer. Reassess for nausea or v omiting after at least 10 minutes. If na usea or vomiting persists contact prescriber labetalol injection 5 mg (NORMODYNE,TRANDATE) 5 mg, intravenous, Once as needed, high blood pressure, 5mg at a time up to 15 mg for systolic pressure <150mg and diastolic pressure <95., Starting Tue06/06/20 at 1229, For 1 dose, Follow institution's IV administration guidelines labetalol injection 5 mg (NORMODYNE,TRANDATE) 1234 (Given - Provider: Janice Duncan R.N.)1247 (Given - Provider: Radha Bowen R.N.) 5 mg, intravenous, As needed, high blood pressure, give 5 mg every 10 minutes as needed for SBP>150 or DBP>95. Max dose 15 mg., Starting on Tue06/06/20 at 1229, PACU (only) naloxone injection 0.2 mg (NARCAN) 0.2 mg, intravenous, As needed, respirat ory depression, Starting Tue06/06/20 at 1205, For RASS Score -4 or less, respiratory rate of less than 8 breaths/min. Notify provider/service and rapid response team (if available at institution). ondansetron (PF) injection 4 mg (ZOFRAN) 4 mg, intravenous, Every 6 hours PRN, na usea, vomiting, Starting Tue06/06/20 at 1205, For 48 hours, Reassess for nausea or vomiting after at least 10 minutes. If nausea or vomiting persists administer haloperidol. oxyCODONE IR tablet 5 mg (ROXICODONE) 1211 (Given - Provider: Janice Duncan R.N.) 5 mg, oral, Every 6 hours PRN, moderate pain or score 4-6 of 10, Starting on Tue06/06/20 at 1205 sodium chloride 0.9 % injection 10 mL 10 mL, intravenous, As needed, line care , Starting on Tue06/06/20 at 0943, Pre- Op, Peripheral Intravenous Catheter and Rapid Infusion Catheter, prior to blood sampling, post blood transfusion or post blood sampling sodium chloride 0.9 % injection 3 mL 3 mL, intravenous, As needed, line care, Starting on Tue06/06/20 at 0943, Pre- Op, Prior to and following infusion and between multiple consecutive infusions: sodium chloride 0.9 % injection documented in this encounter
--- OUTSIDE RECORDS SUMMARY | 2022-05-05 14:39 | XMS_ITS | Encounter Summary ---
:1965 Author Organization [facility] Address [address] [place] [address] Care Team Providers Name Role Phone Unavailable Primary Care Provider Unavailable Encounter Details Date Type Department Care Team Description 07/09/2020 Clinical Communication Department of Dental Rachel Novak Specialties in C, D.D.S. [place], [place] [address] [place] [address] Social History Tobacco Use Types Packs/Day Years Used Date Smoking Tobacco: Former Cigarettes 1 35 11/21 - 09/25/2019 Smokeless Tobacco: Never Alcohol Use Standard Drinks/Week Comments Yes 14 (1 standard drink = 0.6 oz pure alcoh ol) Sex Assigned at Date Recorded Female 12/22/2018 12:54 PM CDT documented as of this encounter Miscellaneous Notes Telephone Encounter - Lisa Cabrera L.D.A. - 07/09/2020 10:50 AM [employer] Paola Mcmullen would like a formal estimate, but will not need to make a pre-service deposit because they are in one of the following categories: development, executive, recall, or have all medical codes. Please finalize and send the formal estimate(s) to the patient. Estimate ID#: [id number] POLICE documented in this encounter Plan of Treatment Upcoming Encounters Date Type Specialty Care Team Description 05/12/2022 Appointment Radiology Jamel Terrazas APRN, C.N.P., D. N.P. [address] [place] [address] (Wo rk) 05/12/2022 Appointment Oral and Maxillofacial Issac Woodward, Surgery Marlyn, D.D.S. [address] [place] [phone] (Wo rk) documented as of this encounter Visit Diagnoses Not on filedocumented in this encounter
--- OUTSIDE RECORDS SUMMARY | 2022-05-05 14:39 | XMS_ITS | Encounter Summary ---
:1965 Author Organization [facility] Address [address] [place] [address] Care Team Providers Name Role Phone Unavailable Primary Care Provider Unavailable Reason for Visit Reason Comments Dental Follow-Up Encounter Details Date Type Department Care Team Description 06/26/2020 Office Visit Department of Dental Rachel Novak D.D.S. Osteomyelitis Mandible Specialties in Severiano Boone D.M.D. (Primary Dx) [place], [place] [address] [place] [address] Social History Tobacco Use Types Packs/Day Years Used Date Smoking Tobacco: Former Cigarettes 1 35 11/21 - 09/25/2019 Smokeless Tobacco: Never Alcohol Use Standard Drinks/Week Comments Yes 14 (1 standard drink = 0.6 oz pure alcoh ol) Sex Assigned at Date Recorded Female 12/22/2018 12:54 PM CDT documented as of this encounter Progress Notes Rachel Novak D.D.S. - 06/26/2020 1:45 PM CST SUBJECTIVE CHIEF COMPLAINT / REASON FOR VISIT Paola Mcmullen is a 55 y.o. female who presents for final impression as part of a series to fabricate right partial resection Mandibular fixed acrylic as a trial prosthesis. HISTORY OF PRESENT ILLNESS The following portions of the patient's history were reviewed and updated as appropriate: allergies and current medications. OBJECTIVE No intraoral changes or contraindications to planned procedure. ASSESSMENT / PLAN #1 Osteomyelitis Mandible The procedure was described to the patient and patient agrees to proceed as indicated. Healing abutments were removed at the following sites: #28,29, and 30. Irrigated using .012% Chlorhexidine Gluconate rinse. Placed impression copings and confirmed seat with radiographs. Pattern resin was utilized to link impression copings together. Open-tray impression was made using Aquasil Ultra vinyl polysiloxane with extra light viscosity wash. Guide pins were retrieved and impression was removed. Healing abutments were re-inserted and manually torqued. Shade, A3.5, was selected and confirmed with patient. Opposing model from previous visit was added to case. Dental lab order was initiated through [facility] in-house lab for fabrication of right partial resection Mandibular fixed acrylic as a trial prosthesis. Facebow was taken. Questions were welcomed and answered to the best of my ability and patient reports no further questions at this time. Next Visit: Wax try-in This was a 90 minute appointment with greater than 50% of the time spent in face to face counseling and coordination of care. OCK TESTER Associated attestation - Ledy Peters D.D.S. - 06/30/2020 3:28 PM BABCOCK TESTER I saw and evaluated the patient, participating in the franco portions of the service. I reviewed the resident/fellow???s note. I agree with the resident/fellow???s findings and plan. documented in this encounter Plan of Treatment Upcoming Encounters Date Type Specialty Care Team Description 05/12/2022 Appointment Radiology Jamel Terrazas APRN, C.N.P., D. N.P. [address] [place] [phone] (Vasiliy ac) 05/12/2022 Appointment Oral and Maxillofacial Issac Woodward, Surgery Marlyn, D.D.S. [address] [place] [address] (Wo yashira) documented as of this encounter Procedures Procedure Name Priority Date/Time Associated Diagnosis Comme nts MEDICAL PERIAPICAL Routine 06/26/2020 6:27 PM Osteomyelitis Ma ndible Results for this BABCOCK TESTER procedure are i n the results section. FINAL IMP /IO Routine 06/26/2020 1:45 PM Osteomyelitis Mandibl e BABCOCK TESTER DENTAL LAB Routine 06/25/2020 Results for thi s procedure are i n the results section. documented in this encounter Results Periapical Medical (06/26/2020 6:27 PM BABCOCK TESTER) Specimen (Source) Anatomical Location Collection Method / Collectio n Time Received Time / Laterality Volume Narrative Rachel Novak D.D.S. - 06/26/2020 6:27 PM BABCOCK TESTER Periapical image(s) taken tooth number(s): 28,29 and 30. Notes Periapical x rays were taken to verify t he seating of impression copings. Rachel Novak D.D.S. DENTAL ORDERABLES Dental Lab (06/25/2020) Narrative Yaquelin Kang C.D.T. - 020 Dr. Terry completed Rachel Novak D.D.S. DENTAL ORDERABLES documented in this encounter Visit Diagnoses Diagnosis Osteomyelitis Mandible - Primary documented in this encounter
--- OUTSIDE RECORDS SUMMARY | 2022-05-05 14:39 | XMS_ITS | Encounter Summary ---
:1965 Author Organization [facility] Address [address] [place] [address] Care Team Providers Name Role Phone Elsewhere, Pcp Primary Care Provider Unavailable Reason for Visit Reason Comments Dental Prosthesis Insert Encounter Details Date Type Department Care Team Description 09/25/2020 Office Visit Department of Dental Rachel Novak Ost eomyelitis Mandible Specialties in C, DCece.S. (Primary Dx) [place], [place] [address] [place] [address] Social History Tobacco Use Types Packs/Day Years Used Date Smoking Tobacco: Former Cigarettes 1 35 11/21 - 09/25/2019 Smokeless Tobacco: Never Alcohol Use Standard Drinks/Week Comments Yes 14 (1 standard drink = 0.6 oz pure alcoh ol) Sex Assigned at Date Recorded Female 12/22/2018 12:54 PM CDT documented as of this encounter Progress Notes Rachel Novak D.D.S. - 09/25/2020 1:00 PM CST SUBJECTIVE CHIEF COMPLAINT / REASON FOR VISIT Paola Mcmullen is a 55 y.o. female who presents for insertion of definitive mandibular resection PFM prosthesis after 2 month follow up. HISTORY OF PRESENT ILLNESS History review was accomplished during consultation prior to appointment today. No contraindicationsto dental treatment. OBJECTIVE No intraoral changes or contraindications to planned procedure. DIAGNOSTICS Periapical radiographs taken and reviewed. Images revealed no gap between implant and prosthesis. Prosthesis seating confirmed by radiograph. ASSESSMENT / PLAN #1 Osteomyelitis Mandible The procedure was described to the patient and patient agrees to proceed as indicated. Provisional mandibular resection acrylic prosthesis was removed at the following sites: #28.29 and 30. Prosthesis was inserted with original/new screws. Periapical radiograph was taken to verify prosthesis seating. Then occlusion was evaluated. In centric occlusion, she was able to bite articulating paper evenly onboth right and left posterior tooth. However, there exist anterior open contact during protrusive movement. Dr. Peters came in and evaluated her occlusion.So bite registrations were taken with prosthesis and without prosthesis. Then, her definitive prosthesis was taken out and her provisional prosthesis was back on again. Then, I went to the lab to verify her occlusion. But her occlusion seems prettyclose. So, I was advised to adjust excursive interference on the articulator. After adjustment, her provisional prosthesis was removed and her definitive prosthesis was placed.and torqued to bucket hooker's recommendations. Implant access channels were filled with Aquasil Ultra vinyl polysiloxane. Occlusion and interproximal contacts were confirmed to be appropriate. Oral hygiene instruction was given. Questions were welcomed and answered to the best of my ability and patient reports no further questions at this time. Next Visit: 24 hour follow up. Database Maintenance: Dental Implant Examination: Stable Dental Implant Prosthesis Examination: N/A Maintenance Treatment: N/A Prosthesis Implant Database Information Prosthesis type: Partial Arch Prosthesis - Definitivel - PFM Site #28,29 and 30 Abutment Screw Torque (Ncm): N/A Direct to fixture - Prosthesis Screw Retention: 35 Ncm CAD Abutment: N/A Stock Abutment: N/A Opposing: natural dentition This was a 90 minute appointment with greater than 50% of the time spent in face to face counseling and coordination of care. ONAL CRA Associated attestation - Ledy Peters D.D.S. - 10/21/2020 12:47 PM REGIONAL CRA I reviewed the case with the resident/fellow but did not see the patient. I agree with the assessment and plan as documented in the resident/fellow's note. documented in this encounter Plan of Treatment Upcoming Encounters Date Type Specialty Care Team Description 05/12/2022 Appointment Radiology Jamel Terrazas APRN, C.N.P., D. N.P. [address] [place] [phone] (Wo rk) 05/12/2022 Appointment Oral and Maxillofacial Issac Woodward, Surgery Marlyn, D.D.S. [address] [place] [address] (Wo rk) documented as of this encounter Procedures Procedure Name Priority Date/Time Associated Diagnosis Comme nts MEDICAL PERIAPICAL Routine 09/25/2020 5:25 PM Osteomyelitis Ma ndible Results for this REGIONAL CRA procedure are i n the results section. INSERT /IO Routine 09/25/2020 1:00 PM Osteomyelitis Mandible REGIONAL CRA documented in this encounter Results Periapical Medical (09/25/2020 5:25 PM REGIONAL CRA) Specimen (Source) Anatomical Location Collection Method / Collectio n Time Received Time / Laterality Volume Narrative Rachel Novak D.D.S. - 09/25/2020 5:25 PM REGIONAL CRA Periapical image(s) taken tooth number(s): 30. Notes Definitive mandibular resection prosthes is was inserted and verified with periapical radiograph. Rachel Novak D.D.S. DENTAL ORDERABLES documented in this encounter Visit Diagnoses Diagnosis Osteomyelitis Mandible - Primary documented in this encounter Care Teams Engagement Specialist Relationship Specialty Start Date End Date Elsewhere, Pcp PCP - General Family Medicine 09/22/20 documented as of this encounter
--- OUTSIDE RECORDS SUMMARY | 2022-05-05 14:39 | XMS_ITS | Encounter Summary ---
:1965 Author Organization [facility] Address [address] [place] [address] Care Team Providers Name Role Phone Elsewhere, Pcp Primary Care Provider Unavailable Encounter Details Date Type Department Care Team Description 01/12/2021 Orders Only Section of Infectious BrayanSimon M.D. Diseases in [place] [address] [address] [place], [place] [address] [place] [phone] [place] [phone] Social History Tobacco Use Types Packs/Day Years [...] Team Description 05/12/2022 Appointment Radiology Jamel Terrazas, SELF CONTAINED BEHAVIOR UNIT TEACHER, C.N.P., D. N.P. [address] [place] [phone] (Wo rk) 05/12/2022 Appointment Oral and Maxillofacial Issac Woodward, Leo Cline, D.D.S. [address] [place] [phone] (Wo rk) documented as of this encounter Visit Diagnoses Not on filedocumented in this encounter Care Teams Recreational Resort Manager Relationship Specialty Start Date End Date Elsewhere, Pcp PCP - General Family Medicine 09/22/20 documented as of this encounter
--- OUTSIDE RECORDS SUMMARY | 2022-05-05 14:39 | XMS_ITS | Encounter Summary ---
:1965 Author Organization [facility] Address [address] [place] [address] Care Team Providers Name Role Phone Unavailable Primary Care Provider Unavailable Encounter Details Date Type Department Care Team Description 06/26/2020 Silent Schedule Department of Dental Rachel Novak, [facility] [address] [place] [phone] Social History Tobacco Use Types Packs/Day [...] Jamel Terrazas APRN, C.N.P., D. N.P. [address] [place] [phone] (Vasiliy ac) 05/12/2022 Appointment Oral and Maxillofacial Issac Woodward, Surgery Marlyn, D.D.S. [address] [place] [phone] (Vasiliy ac) documented as of this encounter Procedures Procedure Name Priority Date/Time Associated Diagnosis Comme nts MEDICAL PERIAPICAL Routine 06/26/2020 6:27 PM Osteomyelitis Ma ndible Results for this INPATIENT CARE MANAGER RN procedure are i n the results section. documented in this encounter Results Periapical Medical (06/26/2020 6:27 PM INPATIENT CARE MANAGER RN) Specimen (Source) Anatomical Location Collection Method / Collectio n Time Received Time / Laterality Volume Narrative Rachel Novak D.D.S. - 06/26/2020 6:27 PM INPATIENT CARE MANAGER RN Periapical image(s) taken tooth number(s): 28,29 and 30. Notes Periapical x rays were taken to verify t he seating of impression copings. Rachel Novak D.D.S. DENTAL ORDERABLES documented in this encounter Visit Diagnoses Not on filedocumented in this encounter
--- OUTSIDE RECORDS SUMMARY | 2022-05-05 14:39 | XMS_ITS | Encounter Summary ---
:1965 Author Organization [facility] Address [address] [place] [address] Care Team Providers Name Role Phone Unavailable Primary Care Provider Unavailable Encounter Details Date Type Department Care Team Description 06/23/2020 Hospital Encounter Department of Severiano Boone Encount er For Laboratory Medicine Sarah desir For Other in [place], Viral Disease [facility] (COVID-19) [address] [place] [phone] Social History Tobacco Use Types Packs/Day Years [...] Description 05/12/2022 Appointment Radiology Jamel Terrazas APRN, CAmaraNAmaraPAmara, D. N.P. [address] [place] [phone] (Wo rk) 05/12/2022 Appointment Oral and Maxillofacial Issac Woodward, Surgery MKayla, D.D.S. [address] [place] [phone] (Wo rk) documented as of this encounter Procedures Procedure Name Priority Date/Time Associated Diagnosis Comme nts SARS CORONAVIRUS-2 Routine 06/23/2020 8:51 AM Encounter For Re sults for this RNA, V ENGINEER/CONDUCTOR Screening For Other procedur e are in Viral Diseases the results (COVID-19) section. documented in this encounter Results SARS Coronavirus-2 RNA, V Asymptomatic (06/23/2020 8:51 AM ENGINEER/CONDUCTOR) [facility] Method Time Signature SARS-CoV-2 Swab, 06/23/2020 MKTO Specimen Nasopharynx 10:53 PM Source ENGINEER/CONDUCTOR SARS CoV-2 Undetected Undetected 06/23/2020 MKTO RNA, TMA 10:53 PM ENGINEER/CONDUCTOR Comment: SARS-CoV-2 RNA absent. This result does not rule out COVID-19 in the patient, as the sensitivity of the test depends o n the timing of the specimen collection and the quality of the specim en. Result should be correlated with patient's history and clinical presentat ion. ----ADDITIONAL INFORMATION---- This test is performed using the Aptima SARS-CoV-2 assay ([employer] which has received Emergency Use Authori zation (EUA) by the U.S. Food and Drug Administration. Fact sheets for this Emergency Use Autho rization (EUA) assay can be found at the following links: For Healthcare Providers: https://www.fd a.gov/media/935269/download For Patients: https://www.fda.gov/media/ 751314/download Specimen Anatomical Collection Method Collection Time Receive d Time (Source) Location / / Volume Laterality Varies 06/23/2020 8:51 AM 0 3:10 (Nasopharynx) ENGINEER/CONDUCTOR PM ENGINEER/CONDUCTOR Severiano Boone D.M.D. LAB MICROBIOLOGY - GENERAL O RDERABLES Performing Organization Address City/State/ZIP Code Phon e Number [facility]- [address] [place] [address] [place] [address] System in [place] [address] [place] [address] documented in this encounter Visit Diagnoses Diagnosis Encounter For Screening For Other Viral Diseases (COVID-19) documented in this encounter Additional Health Concerns Infection Onset Date Last Indicated Resolved Time COVID19 Pending 06/23/2020 06/23/2020 06/23/2020 10:54 PM ENGINEER/CONDUCTOR documented as of this encounter
--- OUTSIDE RECORDS SUMMARY | 2022-05-05 14:39 | XMS_ITS | Encounter Summary ---
:1965 Author Organization [facility] Address [address] [place] [address] Care Team Providers Name Role Phone Unavailable Primary Care Provider Unavailable Encounter Details Date Type Department Care Team Description 05/23/2020 Clinical Communication Department of Dental Rachel Novak Specialties in C, D.D.S. [place], [place] [address] [place] [phone] Social History Tobacco Use Types Packs/Day Years Used Date Smoking Tobacco: Every Day Cigarettes 1 35 S tarted: 12/14/1984 Smokeless Tobacco: Never Alcohol Use Standard Drinks/Week Comments Yes 14 (1 standard drink = 0.6 oz pure alcoh ol) Sex Assigned at Date Recorded Female 12/22/2018 12:54 PM CDT documented as of this encounter Miscellaneous Notes Telephone Encounter - Carmel Medrano - 06/02/2020 11:09 AM CDT Patient is aware Telephone Encounter - Lisa Cabrera L.D.A. - 06/02/2020 8:29 AM CDT This is a medical code. Billed to medical. Telephone Encounter - Carmel Medrano - 05/30/2020 11:37 AM CDT I spoke to patient and she did receive the estimate and she asked this is billed Dental? Just doublechecking. Thank you Telephone Encounter - Carmel Medrano - 05/30/2020 11:13 AM CDT Left message Telephone Encounter - Lisa Cabrera L.D.A. - 05/26/2020 10:12 AM CDT Patient estimate was sent to [facility] and to [facility]. The Estimating team should be sending the patient the information she is looking for. If in the next 7 working days the patient doesn't receive anything from them I would have her contact them [phone]. Telephone Encounter - Carmel Medrano - 05/23/2020 2:29 PM CDT Patient is scheduled. She called and asked if she could get the codes or estimate for these appointments. Thank you documented in this encounter Plan of Treatment Upcoming Encounters Date Type Specialty Care Team Description 05/12/2022 Appointment Radiology Jamel Terrazas APRN, C.N.P., D. N.P. [address] [place] [phone] (Vasiliy ac) 05/12/2022 Appointment Oral and Maxillofacial Issac Woodward Surgery M.D., D.D.S. [address] [place] [phone] (Vasiliy ac) documented as of this encounter Visit Diagnoses Not on filedocumented in this encounter Additional Health Concerns Infection Onset Date Last Indicated Resolved Time COVID19 Pending 06/03/2020 06/03/2020 06/03/2020 11:51 PM CDT documented as of this encounter
--- OUTSIDE RECORDS SUMMARY | 2022-05-05 14:39 | XMS_ITS | Encounter Summary ---
:1965 Author Organization [facility] Address [address] [place] [address] Care Team Providers Name Role Phone Unavailable Primary Care Provider Unavailable Encounter Details Date Type Department Care Team Description 07/03/2020 Silent Schedule Department of Dental Rachel Novak, [facility] [address] [place] [phone] Social History Tobacco Use Types Packs/Day [...] Jamel Terrazas APRN, C.N.P., D. N.P. [address] [place] [phone] (Vasiliy ac) 05/12/2022 Appointment Oral and Maxillofacial Issac Woodward, Surgery Marlyn, D.D.S. [address] [place] [phone] (Vasiliy ac) documented as of this encounter Procedures Procedure Name Priority Date/Time Associated Diagnosis Comme nts MEDICAL PERIAPICAL Routine 07/03/2020 4:28 PM Osteomyelitis Ma ndible Results for this LAYUP WORKER procedure are i n the results section. documented in this encounter Results Periapical Medical (07/03/2020 4:28 PM LAYUP WORKER) Specimen (Source) Anatomical Location Collection Method / Collectio n Time Received Time / Laterality Volume Narrative Rachel Novak D.D.S. - 07/03/2020 4:28 PM LAYUP WORKER Periapical image(s) taken tooth number(s): 30. Additional periapical(s) taken tooth number(s): 29,31. Notes Periapical x ray was taken for the seati ng of provisional resection acrylic prosthesis. Rachel Novak D.D.S. DENTAL ORDERABLES documented in this encounter Visit Diagnoses Not on filedocumented in this encounter
--- OUTSIDE RECORDS SUMMARY | 2022-05-05 14:39 | XMS_ITS | Encounter Summary ---
:1965 Author Organization [facility] Address [address] [place] [address] Care Team Providers Name Role Phone Unavailable Primary Care Provider Unavailable Reason for Visit Reason Comments Dental Follow-Up Encounter Details Date Type Department Care Team Description 07/01/2020 Office Visit Department of Dental Rachel Novak D.D.S. Osteomyelitis Mandible Specialties in Severiano Boone D.M.D. (Primary Dx) [place], [place] [address] [place] [phone] Social History Tobacco Use Types Packs/Day Years Used Date Smoking Tobacco: Former Cigarettes 1 35 11/21 - 09/25/2019 Smokeless Tobacco: Never Alcohol Use Standard Drinks/Week Comments Yes 14 (1 standard drink = 0.6 oz pure alcoh ol) Sex Assigned at Date Recorded Female 12/22/2018 12:54 PM CDT documented as of this encounter Progress Notes Rachel Novak D.D.S. - 07/01/2020 1:00 PM CST SUBJECTIVE CHIEF COMPLAINT / REASON FOR VISIT Paola Mcmullen is a 55 y.o. female who presents for 1st wax try-in of resection prosthesis withimplants - mandibular. HISTORY OF PRESENT ILLNESS History review was not accomplished today. OBJECTIVE DIAGNOSTICS Impression coping seating verified by periapical radiograph. ASSESSMENT / PLAN #1 Osteomyelitis Mandible The procedure was described to the patient. Resection prosthesis with implants wax try - mandibular.Anesthetic was not utilized. Healing abutment(s) number(s) 28, 29, 30 removed. Record base with tooth arrangement in wax was tried in. Interocclusal registration - not required. Patient verified esthetics and occlusion. Sent to lab for processing. Dental Lab order initiated through [facility] in-house dental lab; patient to return for insertion of prosthesis. This was a 30 minute visit with greater than 50% of the time spent in face to face counseling and coordination of care. EATION TECHNICIAN documented in this encounter Plan of Treatment Upcoming Encounters Date Type Specialty Care Team Description 05/12/2022 Appointment Radiology Jamel Terrazas APRN, C.N.P., D. N.P. [address] [place] [phone] (Wo rk) 05/12/2022 Appointment Oral and Maxillofacial Issac Woodward, Leo Cline, Ruma.D.S. [address] [place] [phone] (Wo rk) documented as of this encounter Procedures Procedure Name Priority Date/Time Associated Diagnosis Comme nts DENTAL LAB Routine 07/03/2020 Results for thi s procedure are i n the results section. MEDICAL PERIAPICAL Routine 07/01/2020 1:52 PM Osteomyelitis Ma ndible Results for this RECREATION TECHNICIAN procedure are i n the results section. WAX TRY /IO Routine 07/01/2020 1:00 PM Osteomyelitis Mandible RECREATION TECHNICIAN documented in this encounter Results Dental Lab (07/03/2020) Narrative Yaquelin Kang C.D.T. - 020 Completed by Yaquelin Rosa Rachel Novak D.D.S. DENTAL ORDERABLES Periapical Medical (07/01/2020 1:52 PM RECREATION TECHNICIAN) Specimen (Source) Anatomical Location Collection Method / Collectio n Time Received Time / Laterality Volume Narrative Rachel Novak D.D.S. - 07/01/2020 1:52 PM RECREATION TECHNICIAN Periapical image(s) taken tooth number(s): 30. Notes The seating of right mandibular resectio n prosthesis was verified with a periapical x-ray. Rachel Novak D.D.S. DENTAL ORDERABLES documented in this encounter Visit Diagnoses Diagnosis Osteomyelitis Mandible - Primary documented in this encounter
--- OUTSIDE RECORDS SUMMARY | 2022-05-05 14:39 | XMS_ITS | Encounter Summary ---
:1965 Author Organization [facility] Address [address] [place] [address] Care Team Providers Name Role Phone Unavailable Primary Care Provider Unavailable Encounter Details Date Type Department Care Team Description 08/08/2020 Office Visit Department of Dental Rachel Novak D.D.SAmara Osteomyelitis Mandible Specialties in Ledy Peters D.D.SAmara [address] [place] [address] (Primary Dx) [place], [place] [address] [place] [address] Social History Tobacco Use Types Packs/Day Years Used Date Smoking Tobacco: Former Cigarettes 1 35 11/21 - 09/25/2019 Smokeless Tobacco: Never Alcohol Use Standard Drinks/Week Comments Yes 14 (1 standard drink = 0.6 oz pure alcoh ol) Sex Assigned at Date Recorded Female 12/22/2018 12:54 PM CDT documented as of this encounter Progress Notes Rachel Novak D.D.S. - 08/08/2020 11:00 AM CST SUBJECTIVE CHIEF COMPLAINT / REASON FOR VISIT Paola Mcmullen is a 55 y.o. female who presents for 1 month check appointment regarding mandibular resection prosthesis. HISTORY OF PRESENT ILLNESS History review was accomplished during consultation prior to appointment today. No contraindicationsto dental treatment. OBJECTIVE DIAGNOSTICS No new radiographs taken today. ASSESSMENT / PLAN #1 Osteomyelitis Mandible Patient presented for one month follow upafter mandibular resection prosthesis delivery. She is doing good and cleans her prosthesis. Dr. Peters evaluated her and we plan to make her definitive PFM prosthesis. But previous final impression was not sure due to the angulation of implants. Her provisional resection was removed. Splinted impression copings were connected and final impression was taken with PVS. Modified custom tray was used. Healing abutments were connected on #28.29 and 30 implants. She will come back after lunch for provisional resection prosthesis insertion. O EQUIPMENT INSTALLER Associated attestation - Ledy Peters D.D.S. - 08/11/2020 11:12 AM RADIO EQUIPMENT INSTALLER I saw and evaluated the patient, participating in the franco portions of the service. I reviewed the resident/fellow???s note. I agree with the resident/fellow???s findings and plan. Tissue appears favorable as well as shape, size and hygiene around the provisional resection appliance. Proceeding to definitive resection appliance can now proceed. New final impression deemed necessary due to identified discrepancies between current appliance occlusion and existing mounted models. Dr Novak completed the necessary next impression step today. documented in this encounter Plan of Treatment Upcoming Encounters Date Type Specialty Care Team Description 05/12/2022 Appointment Radiology Jamel Terrazas APRN, C.N.P., D. N.P. [address] [place] [address] (Vsailiy ac) 05/12/2022 Appointment Oral and Maxillofacial Issac Woodward, Leo Cline, D.D.S. [address] [place] [address] (Vasiliy ac) documented as of this encounter Procedures Procedure Name Priority Date/Time Associated Diagnosis Comme nts DENTAL LAB Routine 09/19/2020 Results for thi s procedure are i n the results section. RETURN Routine 08/08/2020 11:00 AM Osteomyelitis Mandibl e RADIO EQUIPMENT INSTALLER FINAL IMP /IO Routine 08/08/2020 11:00 AM Osteomyelitis Mandib le RADIO EQUIPMENT INSTALLER DENTAL LAB Routine 08/08/2020 Results for thi s procedure are i n the results section. documented in this encounter Results Dental Lab (09/19/2020) Narrative Yaquelin Kang C.D.T. - 021 Final shade 4L2.5, G4 tissue with G1/G2 mix. Cast Metal Work by Yaquelin Rosa 15.31 dwt Argedent 54 metal utilized by Yaquelin Rosa Creation Porcelain and Miyo stain by Aziza Mondragon Rachel Novak D.D.S. DENTAL ORDERABLES Dental Lab (08/08/2020) Shaina Brewer - 08/08/2020 Poured and trimmed by Catherine Domínguez Rachel Novak D.D.S. DENTAL ORDERABLES documented in this encounter Visit Diagnoses Diagnosis Osteomyelitis Mandible - Primary documented in this encounter
--- OUTSIDE RECORDS SUMMARY | 2022-05-05 14:39 | XMS_ITS | Encounter Summary ---
:1965 Author Organization [facility] Address [address] [place] [address] Care Team Providers Name Role Phone Elsewhere, Pcp Primary Care Provider Unavailable Reason for Referral Outpatient (Routine) - Authorized Specialty Diagnoses / Referred By Contact Referred To Contact Procedures Oral and Maxillofacial Jamel Terrazas [facility] Surgery D, RHONDA, C.N.P., D.N.P. [address] [place] [phone] Referral ID Status Reason Start Date Expiration Date Visits V isits Requested Authorized [id number] Authorized 05/11/2021 05/11/2022 1 1 Scheduling Instructions APR 2022, RI/CAT/PET Scan (Routine) - Authorized Specialty Diagnoses / Procedures Referred By Contact Refer red To Contact Radiology Diagnoses Osteomyelitis Mandible Chronic Jamel Terrazas [place] Procedures CT Head Neck with IV Contrast RHONDA, C.N.P., D.N.P. [address] [place] [phone] Referral ID Status Reason Start Date Expiration Date Visits V isits Requested Authorized [id number] Authorized 05/11/2021 1 1 utpatient (Routine) - Closed Specialty Diagnoses / Procedures Referred By Contact Refer red To Contact Dermatology Diagnoses Osteomyelitis Mandible Chronic Jamel Terrazas, [place] Procedures Professional Photography Services Yevgeniy ELLIS, Ruma.N.P. [address] [place] [phone] Referral ID Status Reason Start Date Expiration Date Visits Requ ested Visits Authorized [id number] Closed 05/11/2021 05/11/2022 1 1 utpatient (Routine) - Closed Specialty Diagnoses / Referred By Contact Referred To Contact Procedures Oral and Maxillofacial Issac Woodward [facility] Surgery Marlyn, [place] [address] Referral ID Status Reason Start Date Expiration Date Visits Requ ested Visits Authorized [id number] Closed 10/28/2020 10/28/2021 1 1 Scheduling Instructions Crissy HERRING Reason for Visit Outpatient (Routine) - Closed Specialty Diagnoses / Referred By Contact Referred To Contact Procedures Oral and Maxillofacial Issac Woodward [facility] Surgery Marlyn, [place] [address] Referral ID Status Reason Start Date Expiration Date Visits Requ ested Visits Authorized [id number] Closed 10/28/2020 10/28/2021 1 1 Encounter Details Date Type Department Care Team Description 05/11/2021 Hospital Encounter Division of Oral and Taryn Terrazas steomyelitis Maxillofacial Surgery Landen Kebede in [facility] Param ELLISNJonathan, (Primary Dx) [place] Ruma.N.P. [facility] [place] [phone] Social History Tobacco Use Types Packs/Day Years [...] route daily. documented as of this encounter Progress Notes Jamel Terrazas APRN, C.N.P., D.N.P. - 05/11/2021 1:20 PM CDT SUBJECTIVE CHIEF COMPLAINT / REASON FOR VISIT Paola Mcmullen is a 56 y.o. female who presents for interval evaluation. HISTORY OF PRESENT ILLNESS Mrs. Mcmullen is a very pleasant 56 year old female who presents to the clinic today with her for interval evaluation. She has a history of right mandibular osteomyelitis and is status post right segmental mandibulectomy, left fibula free flap reconstruction, endosseous implant placement, and tracheostomy performed on 02/07/20. Mrs. Mcmullen continues to do well. She has her final prosthesis in place and is able to eat her normal diet. Denies pain. Reports swelling is much improved since previous visit. States she has persistent paraesthesia along her right jaw and right chin, and wonders if this will ever improve. CompletedCT imaging this morning. She has no concerns today. REVIEW OF SYSTEMS Pertinent items are noted in HPI; all other systems were reviewed per CVIP. OBJECTIVE There were no vitals taken for this visit. PHYSICAL EXAM Physical Exam General: Alert and oriented, No acute distress. Face: Very mild facial swelling along right mandible. Right V3 paraesthesia persists. Oral: Final prosthesis to right aden-mandible is stable. No mucosal lesions. No submucosal mass or vestibular swelling. Dentition is grossly intact. Maximal incisal opening within normal limits. Neck: Neck incision and trach site are well healed. Supple, Non-tender. No palpable cervical lymphadenopathy. ASSESSMENT / PLAN 1. Osteomyelitis Mandible Chronic Mrs. Mcmullen returns for interval assessment status post right segmental mandibulectomy, left fibula free flap reconstruction for right mandibular osteomyelitis performed on 02/07/20. She continues to do well and I have no concerns upon clinical exam today. Head and neck CT with IV contrast shows osseo us fusion between aden-mandible and [place] mandible. Hardware is also stable appearing. Discussed with the patient that there is still a chance her right V3 paraesthesia may improve and her area of numbness will gradually shrink. She expressed understanding and was appreciative of the return visit today. It was a pleasure visiting with Mrs. Mcmullen. We will plan to next see the patient back in clinicin about 1 year and will repeat CT imaging at that time. She knows to contact our service in the meantime with any concerns. documented in this encounter Plan of Treatment Upcoming Encounters Date Type Specialty Care Team Description 05/12/2022 Appointment Radiology Jamel Terrazas APRN, C.N.P., D. N.P. [address] [place] [phone] (Vasiliy ac) 05/12/2022 Appointment Oral and Maxillofacial Issac Woodward, Leo Cline, D.D.S. [address] [place] [phone] (Vasiliy ac) Scheduled Orders Name Type Priority Associated Diagnoses Order S chedule Professional Procedures Routine Osteomyelitis Expected: Photography Services Mandible Chronic , Expires: 05/11/2024 CT Head Neck with IV Imaging RAD - Routine Osteomyelitis Expec shira: Contrast (most inpatients Mandible Chronic 022 and all (Approximate), outpatients) Expires: 05/11/2024 Scheduled Referrals Name Type Priority Associated Order Schedule Diagnoses Oral and Outpatient Routine Once for 1 Maxillofacial Surgery Referral Yeny coulter office visit (clinic) starti ng 05/11/2021 until Oral and Outpatient Routine Expected: Maxillofacial Surgery Referral 2021 office visit (clinic) (Appro ximate), Expires: 2023 documented as of this encounter Visit Diagnoses Diagnosis Osteomyelitis Mandible Chronic - Primary documented in this encounter Care Teams Senior Database Programmer Relationship Specialty Start Date End Date Elsewhere, Pcp PCP - General Family Medicine 09/22/20 documented as of this encounter
--- OUTSIDE RECORDS SUMMARY | 2022-05-05 14:39 | XMS_ITS | Encounter Summary ---
:1965 Author Organization [facility] Address [address] [place] [address] Care Team Providers Name Role Phone Unavailable Primary Care Provider Unavailable Encounter Details Date Type Department Care Team Description 06/30/2020 Hospital Encounter Department of Severiano Boone Encount er For Laboratory Medicine Sarah desir For Other in [place], Viral Disease [facility] (COVID-19) [address] [place] [phone] Social History Tobacco Use Types Packs/Day Years [...] Terrazas APRN, CAmaraNAmaraPAmara, D. N.P. [address] [place] [phone] (Wo rk) 05/12/2022 Appointment Oral and Maxillofacial Issac Woodward, Surgery MKayla, D.D.S. [address] [place] [phone] (Wo rk) documented as of this encounter Procedures Procedure Name Priority Date/Time Associated Diagnosis Comme nts SARS CORONAVIRUS-2 Routine 06/30/2020 9:28 AM Encounter For Re sults for this RNA, V IRRIGATION LABORER Screening For Other procedur e are in Viral Diseases the results (COVID-19) section. documented in this encounter Results SARS Coronavirus-2 RNA, V Asymptomatic (06/30/2020 9:28 AM IRRIGATION LABORER) [facility] Method Time Signature SARS-CoV-2 Swab, 06/30/2020 MKTO Specimen Nasopharynx 10:24 PM Source IRRIGATION LABORER SARS CoV-2 Undetected Undetected 06/30/2020 MKTO RNA, TMA 10:24 PM IRRIGATION LABORER Comment: SARS-CoV-2 RNA absent. This result does not rule out COVID-19 in the patient, as the sensitivity of the test depends o n the timing of the specimen collection and the quality of the specim en. Result should be correlated with patient's history and clinical presentat ion. ----ADDITIONAL INFORMATION---- This test is performed using the Aptima SARS-CoV-2 assay ([employer] which has received Emergency Use Authori zation (EUA) by the U.S. Food and Drug Administration. Fact sheets for this Emergency Use Autho rization (EUA) assay can be found at the following links: For Healthcare Providers: https://www.fd a.gov/media/947825/download For Patients: https://www.fda.gov/media/ 369431/download Specimen Anatomical Collection Method Collection Time Receive d Time (Source) Location / / Volume Laterality Varies 06/30/2020 9:28 AM 0 3:39 (Nasopharynx) IRRIGATION LABORER PM IRRIGATION LABORER Severiano Boone D.M.D. LAB MICROBIOLOGY - GENERAL O RDERABLES Performing Organization Address City/State/ZIP Code Phon e Number [facility]- [address] [place] [address] [place] [address] System in [place] [address] [place] [address] documented in this encounter Visit Diagnoses Diagnosis Encounter For Screening For Other Viral Diseases (COVID-19) documented in this encounter Additional Health Concerns Infection Onset Date Last Indicated Resolved Time COVID19 Pending 06/30/2020 06/30/2020 06/30/2020 10:25 PM IRRIGATION LABORER documented as of this encounter
--- OUTSIDE RECORDS SUMMARY | 2022-05-05 14:39 | XMS_ITS | Encounter Summary ---
:1965 Author Organization [facility] Address [address] [place] [address] Care Team Providers Name Role Phone Elsewhere, Pcp Primary Care Provider Unavailable Encounter Details Date Type Department Care Team Description 09/22/2020 Hospital Encounter Department of Rachel Novak For Laboratory Medicine Zulema Saunders For Other in [place], Viral Disease s [place] (COVID-19) [address] [place] [phone] Social History Tobacco Use Types Packs/Day Years [...] Terrazas APRN, C.N.PAmara, D. N.P. [address] [place] [phone] (Wo rk) 05/12/2022 Appointment Oral and Maxillofacial Issac Woodward, Surgery MKayla, D.D.S. [address] [place] [phone] (Wo rk) documented as of this encounter Procedures Procedure Name Priority Date/Time Associated Diagnosis Comme nts SARS CORONAVIRUS-2 Routine 09/22/2020 11:06 AM Encounter For R esults for this RNA, V ENGINEERING PSYCHOLOGIST Screening For Other procedur e are in Viral Diseases the results (COVID-19) section. documented in this encounter Results SARS Coronavirus-2 RNA, V Asymptomatic (09/22/2020 11:06 AM ENGINEERING PSYCHOLOGIST) [facility] Method Time Signature SARS-CoV-2 Swab, 09/22/2020 MKTO Specimen Nasopharynx 11:49 PM Source ENGINEERING PSYCHOLOGIST SARS CoV-2 Undetected Undetected 09/22/2020 MKTO RNA, TMA 11:49 PM ENGINEERING PSYCHOLOGIST Comment: SARS-CoV-2 RNA absent. This result does not rule out COVID-19 in the patient, as the sensitivity of the test depends o n the timing of the specimen collection and the quality of the specim en. Result should be correlated with patient's history and clinical presentat ion. ----ADDITIONAL INFORMATION---- This molecular amplification test was pe rformed using the Aptima SARS-CoV-2 assay ([employer] on the [employer] tem under emergency use authorization (EUA) by the U.S. Food and Drug Administ ration. Fact sheets for this EUA assay can be fo und at the following links: For Healthcare Providers: https://www.fd a.gov/media/540009/download For Patients: https://www.fda.gov/media/ 160782/download Specimen Anatomical Collection Method Collection Time Receive d Time (Source) Location / / Volume Laterality Varies 09/22/2020 11:06 09/22/2020 5:30 (Nasopharynx) AM ENGINEERING PSYCHOLOGIST PM ENGINEERING PSYCHOLOGIST Rachel Novak D.D.S. LAB MICROBIOLOGY - GENERAL O RDERABLES Performing Organization Address City/State/ZIP Code Phon e Number [facility]- [address] [place] [phone] [place] [address] [place] [address] System in [place] [address] [place] [address] documented in this encounter Visit Diagnoses Diagnosis Encounter For Screening For Other Viral Diseases (COVID-19) documented in this encounter Additional Health Concerns Infection Onset Date Last Indicated Resolved Time COVID19 Pending 09/22/2020 09/22/2020 09/22/2020 11:50 PM ENGINEERING PSYCHOLOGIST documented as of this encounter Care Teams Tour Narrator Relationship Specialty Start Date End Date Elsewhere, Pcp PCP - General Family Medicine 09/22/20 documented as of this encounter
--- OUTSIDE RECORDS SUMMARY | 2022-05-05 14:39 | XMS_ITS | Encounter Summary ---
:[address] [facility] Address [address] [place] [address] Care Team Providers Name Role Phone Unavailable Primary Care Provider Unavailable Encounter Details Date Type Department Care Team Description 07/01/2020 Silent Schedule Department of Dental Rachel Novak, Specialties in [facility] [place] [facility] [address] [place] [phone] Social History Tobacco Use Types Packs/Day [...] Jamel Terrazas APRN, C.N.P., D. N.P. [address] [place] [phone] (Vasiliy ac) 05/12/2022 Appointment Oral and Maxillofacial Issac Woodward, Surgery Marlyn, D.D.S. [address] [place] [phone] (Vasiliy ac) documented as of this encounter Procedures Procedure Name Priority Date/Time Associated Diagnosis Comme nts MEDICAL PERIAPICAL Routine 07/01/2020 1:52 PM Osteomyelitis Ma ndible Results for this DELIVERY CREW MEMBER procedure are i n the results section. documented in this encounter Results Periapical Medical (07/01/2020 1:52 PM DELIVERY CREW MEMBER) Specimen (Source) Anatomical Location Collection Method / Collectio n Time Received Time / Laterality Volume Narrative Rachel Novak D.D.S. - 07/01/2020 1:52 PM DELIVERY CREW MEMBER Periapical image(s) taken tooth number(s): 30. Notes The seating of right mandibular resectio n prosthesis was verified with a periapical x-ray. Rachel Novak D.D.S. DENTAL ORDERABLES documented in this encounter Visit Diagnoses Not on filedocumented in this encounter
--- OUTSIDE RECORDS SUMMARY | 2022-05-05 14:39 | XMS_ITS | Encounter Summary ---
:1965 Author Organization [facility] Address [address] [place] [address] Care Team Providers Name Role Phone Unavailable Primary Care Provider Unavailable Reason for Visit Reason Comments Dental Follow-Up Encounter Details Date Type Department Care Team Description 07/04/2020 Office Visit Department of Dental Rachel Novak D.D.S. Osteomyelitis Mandible Specialties in Ledy Peters D.D.S. [address] [place] [phone] (Primary Dx) [place], [place] [address] [place] [phone] Social History Tobacco Use Types Packs/Day Years Used Date Smoking Tobacco: Former Cigarettes 1 35 11/21 - 09/25/2019 Smokeless Tobacco: Never Alcohol Use Standard Drinks/Week Comments Yes 14 (1 standard drink = 0.6 oz pure alcoh ol) Sex Assigned at Date Recorded Female 12/22/2018 12:54 PM CDT documented as of this encounter Progress Notes Rachel Novak D.D.S. - 07/04/2020 11:00 AM CST SUBJECTIVE CHIEF COMPLAINT / REASON FOR VISIT Paola Mcmullen is a 55 y.o. female who presents for 24-HR check appointment regarding right temporary mandibular resection acrylic prosthesis. HISTORY OF PRESENT ILLNESS History review was not accomplished today. OBJECTIVE DIAGNOSTICS No new radiographs taken today. ASSESSMENT / PLAN #1 Osteomyelitis Mandible Patient did not report any complaints. Occlusion was verified with the articulating paper. Even though she told it was hard to clean underneath of prosthesis, clinically it was really clean. I do not see any food retention. Oral hygiene was emphasized again. And she will look for the waterpik to use. She will be back on Aug 08 for follow up. RVISOR ROCKET PROPELLANT PLANT documented in this encounter Plan of Treatment Upcoming Encounters Date Type Specialty Care Team Description 05/12/2022 Appointment Radiology Jamel Terrazas APRN, C.N.P., D. N.P. [address] [place] [phone] (Wo rk) 05/12/2022 Appointment Oral and Maxillofacial Issac Woodward, Surgery Marlyn, D.D.S. [address] [place] [phone] (Wo rk) documented as of this encounter Procedures Procedure Name Priority Date/Time Associated Diagnosis Comme nts CHECK Routine 07/04/2020 11:00 AM SUPERVISOR ROCKET PROPELLANT PLANT Osteomyelitis Man dible documented in this encounter Visit Diagnoses Diagnosis Osteomyelitis Mandible - Primary documented in this encounter
--- OUTSIDE RECORDS SUMMARY | 2022-05-05 14:39 | XMS_ITS | Encounter Summary ---
:1965 Author Organization [facility] Address [address] [place] [address] Care Team Providers Name Role Phone Unavailable Primary Care Provider Unavailable Encounter Details Date Type Department Care Team Description 08/08/2020 Office Visit Department of Dental Rachel Novak eomyelitis Mandible Specialties in C, DCece.S. (Primary Dx) [place], [place] [address] [place] [phone] Social History Tobacco Use Types Packs/Day Years Used Date Smoking Tobacco: Former Cigarettes 1 35 11/21 - 09/25/2019 Smokeless Tobacco: Never Alcohol Use Standard Drinks/Week Comments Yes 14 (1 standard drink = 0.6 oz pure alcoh ol) Sex Assigned at Date Recorded Female 12/22/2018 12:54 PM CDT documented as of this encounter Progress Notes Rachel Novak D.D.S. - 08/08/2020 1:30 PM CST SUBJECTIVE CHIEF COMPLAINT / REASON FOR VISIT Ms. Paola Mcmullen is a 55 y.o. female who presents for prosthodontic insert appointment. HISTORY OF PRESENT ILLNESS History review was accomplished during consultation prior to appointment today. No contraindicationsto dental treatment. OBJECTIVE DIAGNOSTICS No new radiographs taken today. ASSESSMENT / PLAN #1 Osteomyelitis Mandible Insertion of Patient came back for her mandibular provisional resection prostheis insertion.. Healing abutments were removed. Her prosthesis was connected and torqued at 15Ncm. Access holes were filled with Aquasil XLV. She will be back for her definitive PFM prosthesis. ARGE MILL OPERATOR documented in this encounter Plan of Treatment Upcoming Encounters Date Type Specialty Care Team Description 05/12/2022 Appointment Radiology Jamel Terrazas APRN, C.NAmaraPAmara, D. N.P. [address] [place] [phone] (Wo rk) 05/12/2022 Appointment Oral and Maxillofacial Issac Woodward, Surgery Marlyn, D.D.S. [address] [place] [phone] (Wo rk) documented as of this encounter Procedures Procedure Name Priority Date/Time Associated Diagnosis Comme nts INSERT Routine 08/08/2020 1:30 PM LITHARGE MILL OPERATOR Osteomyelitis Teddy ible RETURN Routine 08/08/2020 1:30 PM LITHARGE MILL OPERATOR Osteomyelitis Teddy ible documented in this encounter Visit Diagnoses Diagnosis Osteomyelitis Mandible - Primary documented in this encounter
--- OUTSIDE RECORDS SUMMARY | 2022-05-05 14:39 | XMS_ITS | Encounter Summary ---
:[address] [facility] Address [address] [place] [address] Care Team Providers Name Role Phone Elsewhere, Pcp Primary Care Provider Unavailable Reason for Referral Outpatient (Routine) - Closed Specialty Diagnoses / Referred By Contact Referred To Contact Procedures Oral and Maxillofacial Issac Woodward [facility] Surgery Marlyn, D.D.S. [address] [place] [phone] Referral ID Status Reason Start Date Expiration Date Visits Requ ested Visits Authorized [id number] Closed 10/01/2020 10/01/2021 1 1 Scheduling Instructions Crissy E BLOCK MAKER Encounter Details Date Type Department Care Team Description 10/01/2020 Orders Only Division of Oral and Jayla Vargas L, Maxillofacial Surgery in [address] [place] [phone] Social History Tobacco Use Types Packs/Day Years Used Date Smoking Tobacco: Former Cigarettes 1 35 /12/1984 - 09/25/2019 Smokeless Tobacco: Never Alcohol Use Standard Drinks/Week Comments Yes 14 (1 standard drink = 0.6 oz pure alcoh ol) Sex Assigned at Date Recorded Female 12/22/2018 12:54 PM CDT documented as of this encounter Plan of Treatment Upcoming Encounters Date Type Specialty Care Team Description 05/12/2022 Appointment Radiology Jamel Terrazas APRN, C.N.P., D. N.P. [address] [place] [phone] (Wo rk) 05/12/2022 Appointment Oral and Maxillofacial Issac Woodward, Surgery Marlyn, D.D.S. [address] [place] [phone] (Wo rk) Scheduled Referrals Name Type Priority Associated Order Schedule Diagnoses Oral and Maxillofacial Outpatient Referral Routine Expected: Surgery office visit 021 (clinic) (Approximate), Expires: 10/01/2023 documented as of this encounter Visit Diagnoses Not on filedocumented in this encounter Care Teams Assembly Line Leader Relationship Specialty Start Date End Date Elsewhere, Pcp PCP - General Family Medicine 09/22/20 documented as of this encounter
--- OUTSIDE RECORDS SUMMARY | 2022-05-05 14:39 | XMS_ITS | Encounter Summary ---
:1965 Author Organization [facility] Address [address] [place] [address] Care Team Providers Name Role Phone Elsewhere, Pcp Primary Care Provider Unavailable Reason for Visit Reason Comments Dental Prosthesis Insert Encounter Details Date Type Department Care Team Description 07/03/2020 Office Visit Department of Dental Rachel Novak D.D.S. Osteomyelitis Mandible Specialties in Severiano Boone D.M.D. (Primary Dx) [place], [place] [address] [place] [phone] Social History Tobacco Use Types Packs/Day Years Used Date Smoking Tobacco: Former Cigarettes 1 35 11/21 - 09/25/2019 Smokeless Tobacco: Never Alcohol Use Standard Drinks/Week Comments Yes 14 (1 standard drink = 0.6 oz pure alcoh ol) Sex Assigned at Date Recorded Female 12/22/2018 12:54 PM CDT documented as of this encounter Progress Notes Rachel Novak D.D.S. - 07/03/2020 1:30 PM CST SUBJECTIVE CHIEF COMPLAINT / REASON FOR VISIT Paola Mcmullen is a 55 y.o. female who presents for insertion of right provisional resection acrylic prosthesis . HISTORY OF PRESENT ILLNESS The following portions of the patient's history were reviewed and updated as appropriate: allergies and current medications. OBJECTIVE No intraoral changes or contraindications to planned procedure. DIAGNOSTICS Impression coping seating verified by periapical radiograph. ASSESSMENT / PLAN #1 Osteomyelitis Mandible The procedure was described to the patient and patient agrees to proceed as indicated. Healing abutments#29,30 and 31 were removed at the following sites: Prosthesis was tried in. Occlusion and interproximal contacts were adjusted as needed. Passive fit and complete seating of prosthesis was achieved and confirmed with radiograph. Esthetics were verified and approved by the patient. Screws were torqued to plasma processing centrifuge operator's recommendations. Implant access channels were filled with Aquasil Ultra vinyl polysiloxane. Occlusion was verified. Reviewed post-procedure instructions with the patient, including recall, hygiene, and when further attention to the prosthesis may be warranted. Patient was given necessary armamentarium. Questions were welcomed and answered to the best of my ability and patient reports no further questions at this time. Next Visit: 24 hour follow up This was a 60 minute appointment with greater than 50% of the time spent in face to face counseling and coordination of care. CH PATHOLOGIST ASSISTANT Associated attestation - Ledy Peters D.D.S. - 07/18/2020 1:29 PM SPEECH PATHOLOGIST ASSISTANT I saw and evaluated the patient, participating in the franco portions of the service. I reviewed the resident/fellow???s note. I agree with the resident/fellow???s findings and plan. Rachel Novak D.D.S. - 07/03/2020 1:30 PM CST SUBJECTIVE CHIEF COMPLAINT / REASON FOR VISIT Paola Mcmullen is a 55 y.o. female who presents for insertion of right provisional resection acrylic prosthesis . HISTORY OF PRESENT ILLNESS The following portions of the patient's history were reviewed and updated as appropriate: allergies and current medications. OBJECTIVE No intraoral changes or contraindications to planned procedure. DIAGNOSTICS Impression coping seating verified by periapical radiograph. ASSESSMENT / PLAN #1 Osteomyelitis Mandible The procedure was described to the patient and patient agrees to proceed as indicated. Healing abutments#29,30 and 31 were removed at the following sites: Prosthesis was tried in. Occlusion and interproximal contacts were adjusted as needed. Passive fit and complete seating of prosthesis was achieved and confirmed with radiograph. Esthetics were verified and approved by the patient. Temporary cylinder abutment screws were torqued to plasma processing centrifuge operator's recommendations, 15Ncm. Implant access channels werefilled with Aquasil Ultra vinyl polysiloxane. Occlusion was verified. Reviewed post-procedure instructions with the patient, including recall, hygiene, and when further attention to the prosthesis may be warranted. Patient was given necessary armamentarium. Questions were welcomed and answered to the best of my ability and patient reports no further questions at this time. Next Visit: 24 hour follow up This was a 60 minute appointment with greater than 50% of the time spent in face to face counseling and coordination of care. CH PATHOLOGIST ASSISTANT documented in this encounter Plan of Treatment Upcoming Encounters Date Type Specialty Care Team Description 05/12/2022 Appointment Radiology Jamel Terrazas APRN, C.N.P., D. N.P. [address] [place] [phone] (Vasiliy rk) 05/12/2022 Appointment Oral and Maxillofacial Issac Woodward Surgery M.D., D.D.S. [address] [place] [phone] (Vasiliy ac) documented as of this encounter Procedures Procedure Name Priority Date/Time Associated Diagnosis Comme nts MEDICAL PERIAPICAL Routine 07/03/2020 4:28 PM Osteomyelitis Ma ndible Results for this SPEECH PATHOLOGIST ASSISTANT procedure are i n the results section. INSERT Routine 07/03/2020 1:30 PM Osteomyelitis Mandible SPEECH PATHOLOGIST ASSISTANT documented in this encounter Results Periapical Medical (07/03/2020 4:28 PM SPEECH PATHOLOGIST ASSISTANT) Specimen (Source) Anatomical Location Collection Method / Collectio n Time Received Time / Laterality Volume Narrative Rachel Novak D.D.S. - 07/03/2020 4:28 PM SPEECH PATHOLOGIST ASSISTANT Periapical image(s) taken tooth number(s): 30. Additional periapical(s) taken tooth number(s): 29,31. Notes Periapical x ray was taken for the seati ng of provisional resection acrylic prosthesis. Rachel Novak D.D.S. DENTAL ORDERABLES documented in this encounter Visit Diagnoses Diagnosis Osteomyelitis Mandible - Primary documented in this encounter Additional Health Concerns Infection Onset Date Last Indicated Resolved Time COVID19 Pending 09/22/2020 09/22/2020 09/22/2020 11:50 PM SPEECH PATHOLOGIST ASSISTANT documented as of this encounter Care Teams City Jailer Relationship Specialty Start Date End Date Elsewhere, Pcp PCP - General Family Medicine 09/22/20 documented as of this encounter
--- OUTSIDE RECORDS SUMMARY | 2022-05-05 14:39 | XMS_ITS | Encounter Summary ---
:1965 Author Organization [facility] Address [address] [place] [address] Care Team Providers Name Role Phone Elsewhere, Pcp Primary Care Provider Unavailable Reason for Visit Reason Comments Dental Follow-Up Encounter Details Date Type Department Care Team Description 09/26/2020 Office Visit Department of Dental Rachel Novak Ost eomyelitis Mandible Specialties in C, DCece.S. (Primary Dx) [place], [place] [address] [place] [phone] Social History Tobacco Use Types Packs/Day Years Used Date Smoking Tobacco: Former Cigarettes 1 35 11/21 - 09/25/2019 Smokeless Tobacco: Never Alcohol Use Standard Drinks/Week Comments Yes 14 (1 standard drink = 0.6 oz pure alcoh ol) Sex Assigned at Date Recorded Female 12/22/2018 12:54 PM CDT documented as of this encounter Progress Notes Rachel Novak D.D.S. - 09/26/2020 9:30 AM CST SUBJECTIVE CHIEF COMPLAINT / REASON FOR VISIT Paola Mcmullen is a 55 y.o. female who presents for 24-HR check appointment regarding mandibular resection prosthesis. HISTORY OF PRESENT ILLNESS History review was accomplished during consultation prior to appointment today. No contraindicationsto dental treatment. OBJECTIVE DIAGNOSTICS No new radiographs taken today. ASSESSMENT / PLAN #1 Osteomyelitis Mandible Patient presented for 24 hour follow up appointment after definitive mandibular resection PFM prosthesis. She does not have any complaints. She cleans her definitive prosthesis well. She wants permanent composite for access holes. So, PVS were removed out of access holes. Then lizabeth tape was packed and composite was filled and cured. Patient approved the smoothness. She was informed her COVID test is required if she needs adjustment. Next) She will contact to us if she needs an adjustment. MBLY LINE LEADER Associated attestation - Ledy Peters D.D.S. - 10/21/2020 12:51 PM ASSEMBLY LINE LEADER I reviewed the case with the resident/fellow but did not see the patient. I agree with the assessment and plan as documented in the resident/fellow's note. documented in this encounter Plan of Treatment Upcoming Encounters Date Type Specialty Care Team Description 05/12/2022 Appointment Radiology Jamel Terrazas APRN, C.N.P., D. N.P. [address] [place] [phone] (Wo rk) 05/12/2022 Appointment Oral and Maxillofacial Issac Woodward, Leo Cline, D.D.S. [address] [place] [phone] (Wo rk) Scheduled Orders Name Type Priority Associated Diagnoses Order S chedule 1 YR CHECK Dental Procedure Routine 1 Occurrenc es starting 04/02/2021 documented as of this encounter Procedures Procedure Name Priority Date/Time Associated Diagnosis Comme nts 24 HR CHECK /IO Routine 09/26/2020 9:30 AM ASSEMBLY LINE LEADER Osteomyelitis M andible CERAMIC documented in this encounter Visit Diagnoses Diagnosis Osteomyelitis Mandible - Primary documented in this encounter Care Teams Vp Communications Relationship Specialty Start Date End Date Elsewhere, Pcp PCP - General Family Medicine 09/22/20 documented as of this encounter
--- OUTSIDE RECORDS SUMMARY | 2022-05-05 14:39 | XMS_ITS | Encounter Summary ---
:1965 Author Organization [facility] Address [address] [place] [address] Care Team Providers Name Role Phone Elsewhere, Pcp Primary Care Provider Unavailable Reason for Referral MRI/CAT/PET Scan (Routine) - Closed Specialty Diagnoses / Procedures Referred By Contact Refer red To Contact Radiology Diagnoses Osteomyelitis Mandible Chronic Issac Woodward M.D., [facility] Procedures CT Head Neck with IV Contrast D.D.S. [address] [place] [phone] Referral ID Status Reason Start Date Expiration Date Visits Requ ested Visits Authorized [id number] Closed 10/28/2020 10/28/2021 1 1 ET STRINGER Outpatient (Routine) - Closed Specialty Diagnoses / Referred By Contact Referred To Contact Procedures Oral and Maxillofacial Issac Woodward [facility] Surgery Marlyn, D.D.S. [address] [place] [phone] Referral ID Status Reason Start Date Expiration Date Visits Requ ested Visits Authorized [id number] Closed 10/28/2020 10/28/2021 1 1 Scheduling Instructions Crissy HERRING ET STRINGER Outpatient (Routine) - Closed Specialty Diagnoses / Procedures Referred By Contact Refer red To Contact Diagnoses Osteomyelitis Mandible Chronic Issac Woodward M.D., [facility] Procedures OMS Panorex D.D.S. [address] [place] [phone] Referral ID Status Reason Start Date Expiration Date Visits Requ ested Visits Authorized [id number] Closed 10/28/2020 10/28/2021 1 1 ET STRINGER Outpatient (Routine) - Closed Specialty Diagnoses / Referred By Contact Referred To Contact Procedures Oral and Maxillofacial Issac Woodward [facility] Surgery Marlyn, [place] [address] Referral ID Status Reason Start Date Expiration Date Visits Requ ested Visits Authorized [id number] Closed 10/01/2020 10/01/2021 1 1 Scheduling Instructions Crissy ET STRINGER Reason for Visit Outpatient (Routine) - Closed Specialty Diagnoses / Referred By Contact Referred To Contact Procedures Oral and Maxillofacial Issac Woodward [facility] Surgery Marlyn, Martinez.S. [address] [place] [phone] Referral ID Status Reason Start Date Expiration Date Visits Requ ested Visits Authorized [id number] Closed 10/01/2020 10/01/2021 1 1 Encounter Details Date Type Department Care Team Description 10/28/2020 Hospital Encounter Division of Oral and Crissy, O steomyelitis Maxillofacial Surgery Issac Raymundo M.D., Evette Santo in [place], SusyS. (Primary Dx) [address] [place] [phone] Social History Tobacco Use Types Packs/Day Years [...] route daily. documented as of this encounter Consult Notes Issac Woodward M.D., D.D.S. - 10/28/2020 1:40 PM CST SUBJECTIVE CHIEF COMPLAINT / REASON FOR VISIT Postoperative follow HISTORY OF PRESENT ILLNESS Mrs. Mcmullen is very pleasant 55-year-old female seen today for interval assessment in the setting of prior treatment for right leida mandibular osteomyelitis status post segmental mandibular resectionand fibular free flap reconstruction. She has recently undergone placement of a final prosthesis roug hly 1 month ago. She states that she has not had recent episodes of recurrent infection, swelling, or drainage. She continues to endorse expected V3 paresthesia on the right-hand side which she states is somewhat bothersome. She also feels that her speech is subjectively impacted however her does not appreciate this. Otherwise she expresses no further head neck complaints today. REVIEW OF SYSTEMS Pertinent items are noted in HPI; all other systems were reviewed per CVIPFH. OBJECTIVE There were no vitals taken for this visit. PHYSICAL EXAM Physical Exam General: Alert and oriented, No acute distress. Face: Subtle right-sided facial fullness consistent with lymphedema. No fistulae. No cutaneous erythema. Oral: No lesions, masses, swellings. No purulence. No drainage. No hardware exposure. Final prosthesis is stable. Neck: Well-healed neck and trach incisions. No palpable lymphadenopathy. No draining fistulae. ASSESSMENT / PLAN 1. Osteomyelitis Mandible Chronic Mrs. Mcmullen is a very pleasant 55-year-old female with history of right mandibular osteomyelitis status post segmental mandibular resection and reconstruction with a fibular free flap. Based on examination today she continues to do well. I appreciate no objective speech impediments. Her intelligibility and articulation is excellent. Her Panorex CT scan demonstrates no evidence of hardware failure or bone loss. My recommendation was to proceed with interval follow-up in 6 months time at which pointwe will repeat a CT scan. I encouraged her to begin massage to deal some of her residual facial lymph edema. She is encouraged to contact us in the interim should there be any changes in her condition that would merit a more prompt return for re- evaluation. We will continue working with providing her support for her insurance claims as this is been an ongoing issue for them unfortunately. Electronically signed by: Issac Woodward M.D., D.D.S. 10/28/20 3:02 PM RACKET STRINGER ET STRINGER documented in this encounter Plan of Treatment Upcoming Encounters Date Type Specialty Care Team Description 05/12/2022 Appointment Radiology Jamel Terrazas APRN, C.N.P., D. N.P. [address] [place] [phone] (Vasiliy ac) 05/12/2022 Appointment Oral and Maxillofacial Issac Woodward, Surgery [place]n, D.D.S. [address] [place] [phone] (Vasiliy ac) Scheduled Referrals Name Type Priority Associated Order Schedule Diagnoses Oral and Outpatient Routine Once for 1 Maxillofacial Surgery Referral Yeny coulter office visit (clinic) [place] 10/28/2020 until Oral and Outpatient Routine Expected: Maxillofacial Surgery Referral 2020 office visit (clinic) (Appro ximate), Expires: 2023 documented as of this encounter Results CT Head Neck with IV Contrast (05/11/2021 10:17 AM CDT) Anatomical Region Laterality Modality Head and Neck, Neuroradiology RST LOS, N/A C omputed Tomography, Computed Neuroradiology ARZ LOS, Neuroradiology T omography FLA [facility] Specimen (Source) Anatomical Collection Method Collection Time Re ceived Time Location / / Volume Laterality 05/11/2021 10:29 AM CDT Impressions 05/11/2021 10:39 AM CDT Expected interval evolution of postoperative changes related to right segmental mandibulectomy with fibu lar graft reconstruction with interval healing including fusion of the fibular graft with the pamunkey mandible both anteriorly and posteriorly. Stable appea [...] fusion of the fibular graft with the pamunkey mandible both anteriorly and posteriorly. Expected evolution [...] fusion of the fibular graft with the pamunkey mandible both anteriorly and posteriorly. Expected evolution [...] fusion of the fibular graft with the pamunkey mandible both anteriorly and posteriorly. Stable appea preston of the mandibular fusion hardware. Issac Woodward M.D., D.D.S. IMG CT PROCEDURES documented in this encounter Visit Diagnoses Diagnosis Osteomyelitis Mandible Chronic - Primary Osteomyelitis Mandible Chronic documented in this encounter Care Teams Inspector Balance Bridge Relationship Specialty Start Date End Date Elsewhere, Pcp PCP - General Family Medicine 09/22/20 documented as of this encounter
--- OUTSIDE RECORDS SUMMARY | 2022-05-05 14:39 | XMS_ITS | Encounter Summary ---
:1965 Author Organization [facility] Address [address] [place] [address] Care Team Providers Name Role Phone Unavailable Primary Care Provider Unavailable Encounter Details Date Type Department Care Team Description 07/09/2020 Clinical Communication Department of Dental Rachel Novak Specialties in C, D.D.S. [place], [place] [address] [place] [address] Social History Tobacco Use Types Packs/Day Years Used Date Smoking Tobacco: Former Cigarettes 1 35 11/21 - 09/25/2019 Smokeless Tobacco: Never Alcohol Use Standard Drinks/Week Comments Yes 14 (1 standard drink = 0.6 oz pure alcoh ol) Sex Assigned at Date Recorded Female 12/22/2018 12:54 PM CDT documented as of this encounter Miscellaneous Notes Telephone Encounter - Carmel Medrano - 07/22/2020 12:46 PM CST Patient is aware EMASON SUPERVISOR Telephone Encounter - Lisa Cabrera L.D.A. - 07/22/2020 9:15 AM STONEMASON SUPERVISOR What the patient may not understand is what type of prosthesis this is and she may not have given the medical code(maybe she did). This is a resection prosthesis with a medical code. We bill this medical, we write letters if needed for insurance, but this is sent to medical insurance. I cannot answer if it is covered or not, as I do not know. That is something the business office can assist with. We can discuss this further with the patient when she is in next if that is ok with her. EMASON SUPERVISOR Telephone Encounter - Carmel Medrano - 07/21/2020 4:55 PM CST I spoke to patient and she said she talked to her insurance company and they said now that she is doing her teeth it should be billed dental. I was not sure how to respond to the patient other than I let her know what the message stated, Medical I just wanted to relay what she said. Thank you EMASON SUPERVISOR Telephone Encounter - Carmel Medrano - 07/15/2020 4:42 PM CST Left message EMASON SUPERVISOR Telephone Encounter - Lisa Cabrera L.D.A. - 07/09/2020 10:50 AM STONEMASON SUPERVISOR Yes this is a medical code. The business office should be able to help her. Estimate #[id number] Or patient is welcome to contact her insurance company. EMASON SUPERVISOR Telephone Encounter - Amira Gagnon - 07/09/2020 10:04 AM CST Patient called and is asking how this will be billed to her? From my understanding she was hoping that this will be billed medical and [facility]? I was going to transfer her to the billing office but she asked to send a message first. Please advise. Thank you Please send response to RST DEN Scheduling. EMASON SUPERVISOR documented in this encounter Plan of Treatment Upcoming Encounters Date Type Specialty Care Team Description 05/12/2022 Appointment Radiology Jamel Terrazas, RHONDA, C.N.P., D. N.P. [address] [place] [phone] (Vasiliy ac) 05/12/2022 Appointment Oral and Maxillofacial Issac Woodward, Surgery [place]n, D.D.S. [address] [place] [phone] (Vasiliy ac) documented as of this encounter Visit Diagnoses Not on filedocumented in this encounter
--- OUTSIDE RECORDS SUMMARY | 2022-05-05 14:39 | XMS_ITS | Encounter Summary ---
:1965 Author Organization [facility] Address [address] [place] [address] Care Team Providers Name Role Phone Unavailable Primary Care Provider Unavailable Reason for Visit Auth/Cert Specialty Diagnoses / Procedures Referred By Contact Refer red To Contact Diagnoses Encounter For Screening For Other Viral Diseases (COVID-19) Osteomyelitis Mandible Encounter For Screening For Other Viral Diseases (COVID-19) [Z11.59] Procedures [place] UNLISTED PROC DENTOALVEOLAR PLACEMENT UNCOVERING AND HEALING ABUTMENT WITH ENDOSSEOUS IMPLANT Referral ID Status Reason Start Date Expiration Date Visits Requ ested Visits Authorized [id number] 1 1 Encounter Details Date Type Department Care Team Description 06/06/2020 Surgery ZZLOLITA MOODY OR Issac Woodward, PLACEMENT UNCOVERING AND [address] [place], DAmaraDAmaraS[place] [address] [phone] ENDOSSEOUS IMPLANT. [phone] [place] [address] Social History Tobacco Use Types Packs/Day Years [...] Sign Reading Time Taken Comments Blood Pressure 139/105 06/06/2020 8:30 AM CDT Pulse 68 06/06/2020 8:30 AM CDT Temperature 36.7 ??C (98.1 ??F) 06/06/2020 8:30 AM CDT Respiratory Rate 16 06/06/2020 8:30 AM CDT Oxygen Saturation 100% 06/06/2020 8:30 AM CDT Inhaled Oxygen Concentration - - Weight [...] Bermeo M.D., D.D.S. CT CT Job ID: [id number] Brief Op Note - Anand Bermeo M.D., D.D.S. - 06/06/2020 10:55 AM CDT BRIEF OP NOTE Procedure(s) (LRB): PLACEMENT UNCOVERING AND HEALING ABUTMENT WITH ENDOSSEOUS IMPLANT. (Right) Surgeon(s) and Role: * Issac Woodward M.D., D.D.S. - Primary * Anand Bermeo M.D., D.D.S. - Home Theater Specialist Anesthesia Type General Pre-operative Diagnosis Encounter For [...] Implant Name Type Inv. Item Serial No. Tank Driver Lot No. LRB No. Used Action ABTMNT HL BRNMK ACQUISITIONS LIBRARIAN 4.5X5.0 - [id number] Hardware e.g. pins/screws/rods ABTMNT HL BRNMK ACQUISITIONS LIBRARIAN 4.5X5.0[employer] [id number] Right 1 Implanted ABTMNT HL BRNMK ACQUISITIONS LIBRARIAN 4.5X5.0 - [id number] Hardware e.g. pins/screws/rods ABTMNT HL BRNMK ACQUISITIONS LIBRARIAN 4.5X5.0[employer] [id number] Right 1 Implanted ABTMNT HL BRNMK ACQUISITIONS LIBRARIAN 4.5X5.0 - [id number] Hardware e.g. pins/screws/rods ABTMNT HL BRNMK ACQUISITIONS LIBRARIAN 4.5X5.0[employer] [id number] Right 1 Implanted Alexis Bermeo M.D., D.D.S. documented in this encounter Plan of Treatment Upcoming Encounters Date Type Specialty Care Team Description 05/12/2022 Appointment Radiology Jamel Terrazas APRN, C.N.P., D. N.P. [address] [place] [phone] (Vasiliy ac) 05/12/2022 Appointment Oral and Maxillofacial Issac Woodward, Surgery [place]n, D.D.S. [address] [place] [phone] (Vasiliy ac) documented as of this encounter Procedures Procedure Name Priority Date/Time Associated Diagnosis Comme nts ADULT OXYGEN THERAPY Routine 06/06/2020 12:05 PM CDT PLACEMENT UNCOVERING 06/06/2020 10:11 AM Encounter For AND HEALING ABUTMENT CDT Screening For Other WITH ENDOSSEOUS IMPLANT Viral Diseases (COVID-19) Case Notes HEAT REGULATOR 0816 documented in this encounter Visit Diagnoses Diagnosis Encounter For Screening For Other Viral Diseases (COVID-19) - Primary Encounter For Screening For Other Viral Diseases (COVID-19) documented in this encounter Admitting Diagnoses Diagnosis Encounter For Screening For Other Viral Diseases (COVID-19) documented in this encounter Administered Medications Inactive Administered Medications - up to 3 most recent administrations Medication Order OCT Action Action Dose Rate Site acetaminophen tablet 1,000 mg [...] (COMPLETED) 0951 (Given - Provider: Alisa Guerra RTammy) 1,000 mg, oral, Once, On Tue06/06/20 at [...]
--- OUTSIDE RECORDS SUMMARY | 2022-05-05 14:39 | XMS_ITS | Encounter Summary ---
:1965 Author Organization [facility] Address [address] [place] [address] Care Team Providers Name Role Phone Unavailable Primary Care Provider Unavailable Encounter Details Date Type Department Care Team Description 06/03/2020 Hospital Encounter Department of Issac Woodward Laboratory Medicine Marlyn Raymundo, Colleen desir For Other in [facility] Susy. Viral Diseases [place] [address] [facility] (COVID-19) [address] [place] [phone] Social History Tobacco Use Types Packs/Day Years [...] Refills Start Date End Date acetaminophen (TYLENOL) 2 tablets (1,000 mg 0 500 mg tablet total) by gastric tube route every 6 (six) hours. cholecalciferol (VITAMIN Take 1 capsule 0 020 D3) 5,000 Unit capsule (5,000 Units total) by mouth daily. Hold until taking oral diet. fish oil 500 mg capsule Take 1 capsule (500 0 mg total) by mouth daily. Hold until taking oral diet. ibuprofen (ADVIL,MOTRIN) Take 600 mg by 0 200 mg capsule mouth every 6 (six) hours as needed for pain. lisinopriL 1 tablet (10 mg 2 02/13/2020 (PRINIVIL,ZESTRIL) 10 mg total) by gastric tablet tube route daily. bacitracin zinc 500 Apply 1 packet 0 02/13/2020 1 unit/gram ointment packet topically 2 (two) times a day. calcium carbonate Take 1 tablet (500 0 02/13/2020 06/06/2020 (OS-THADDEUS) 1,250 mg (500 mg mg of calcium calcium) tablet total) by mouth daily with breakfast. Hold until taking oral diet. gabapentin (NEURONTIN) Take 3 capsules 90 capsule 2 03/26/20 20 06/06/2020 100 mg capsule (300 mg total) by mouth 3 (three) times a day. metoclopramide (REGLAN) 5 10 mL (10 mg total) 280 mL 0 0 02/13/2020 06/06/2020 mg/5 mL solution by gastric tube route 4 (four) times a day before meals and bedtime for 7 days. multivitamin capsule Take 1 capsule by 0 02/13/20 20 06/06/2020 mouth daily. Hold until taking oral diet. oxyCODONE (ROXICODONE) 5 5 mL (5 mg total) 100 mL 0 01/2106/06/2020 mg/5 mL by gastric tube solutionIndications: route every 4 Acute Pain Exception (four) hours as needed for pain Indication: Acute Pain Exception. sennosides-docusate 2 tablets by 0 02/13/2020 sodium (Senna with gastric tube route Docusate Sodium) 8.6-50 at bedtime. Use mg per tablet while taking narcotics and until bowel movements normal. Hold for diarrhea. documented as of this encounter Plan of Treatment Upcoming Encounters Date Type Specialty Care Team Description 05/12/2022 Appointment Radiology Jamel Terrazas APRN, C.N.P., D. N.P. [address] [place] [phone] (Vasiliy ac) 05/12/2022 Appointment Oral and Maxillofacial Issac Woodward Surgery M.D., D.D.S. [address] [place] [phone] (Vasiliy ac) documented as of this encounter Procedures Procedure Name Priority Date/Time Associated Diagnosis Comme nts SARS CORONAVIRUS-2 Routine 06/03/2020 10:08 AM Encounter For R esults for this RNA, V CDT Screening For Other procedur e are in Viral Diseases the results (COVID-19) section. documented in this encounter Results SARS Coronavirus-2 RNA, V Asymptomatic (06/03/2020 10:08 AM CDT) [facility] Method Time Signature SARS-CoV-2 Swab, 06/03/2020 MKTO Specimen Nasopharynx 11:50 PM Source CDT SARS CoV-2 Undetected Undetected 06/03/2020 MKTO RNA, TMA 11:50 PM CDT Comment: SARS-CoV-2 RNA absent. This result does not rule out COVID-19 in the patient, as the sensitivity of the test depends o n the timing of the specimen collection and the quality of the specim en. Result should be correlated with patient's history and clinical presentat ion. ----ADDITIONAL INFORMATION---- This test is performed using the Aptima SARS-CoV-2 assay ([employer] which has received Emergency Use Authori zation (EUA) by the U.S. Food and Drug Administration. Fact sheets for this Emergency Use Autho rization (EUA) assay can be found at the following links: For Healthcare Providers: https://www.fd a.gov/media/800218/download For Patients: https://www.fda.gov/media/ 118810/download Specimen Anatomical Collection Method Collection Time Receive d Time (Source) Location / / Volume Laterality Varies 06/03/2020 10:08 06/03/2020 3:35 (Nasopharynx) AM CDT PM CDT Issac Woodward M.D., SusyS. LAB MICROBIOLOGY - GENERA L ORDERABLES Performing Organization Address City/State/ZIP Code Phon e Number [facility]- [address] [place] [phone] [place] [address] [place] [address] System in [address] documented in this encounter Visit Diagnoses Diagnosis Encounter For Screening For Other Viral Diseases (COVID-19) documented in this encounter Additional Health Concerns Infection Onset Date Last Indicated Resolved Time COVID19 Pending 06/03/2020 06/03/2020 06/03/2020 11:51 PM CDT documented as of this encounter
--- OUTSIDE RECORDS SUMMARY | 2022-05-05 14:39 | XMS_ITS | Encounter Summary ---
:1965 Author Organization [facility] Address [address] [place] [address] Care Team Providers Name Role Phone Unavailable Primary Care Provider Unavailable Encounter Details Date Type Department Care Team Description 05/12/2020 Clinical Communication Department of Dental Severiano Boone, Specialties in D.M.D. [place], [place] [address] [place] [phone] Social History Tobacco Use Types Packs/Day Years Used Date Smoking Tobacco: Every Day Cigarettes 1 35 S tarted: 12/14/1984 Smokeless Tobacco: Never Alcohol Use Standard Drinks/Week Comments Yes 14 (1 standard drink = 0.6 oz pure alcoh ol) Sex Assigned at Date Recorded Female 12/22/2018 12:54 PM CDT documented as of this encounter Miscellaneous Notes Telephone Encounter - Amira Gagnon - 06/03/2020 11:13 AM CDT Scheduled Telephone Encounter - Carmel Medrano - 05/21/2020 12:18 PM CDT Will reach out to patient to be scheduled Telephone Encounter - Lisa Cabrera L.D.A. - 05/14/2020 10:[address] Novak please contact patient. Telephone Encounter - Lisa Cabrera L.D.A. - 05/12/2020 3:45 PM CDT The W4 doctors will not be in the OR on 06/06. It is my understanding that in past communications itis stated we will start our series 2 weeks after. Treatment requested let me know if questions. Thank you. Telephone Encounter - Marvin Upton L.D.A. - 05/12/2020 3:21 PM CDT Please see attached. Telephone Encounter - Amira Gagnon - 05/12/2020 12:24 PM CDT Patient scheduled with Dr Woodward on 06/06. She was under the impression that Dr Boone and Dr Novak would also be at this appointment but there is no request. Please advise. Thank you Please send response to RST DEN Scheduling documented in this encounter Plan of Treatment Upcoming Encounters Date Type Specialty Care Team Description 05/12/2022 Appointment Radiology Jamel Terrazas APRN, C.N.P., D. N.P. [address] [place] [phone] (Vasiliy ac) 05/12/2022 Appointment Oral and Maxillofacial Issac Woodward Surgery M.D., D.D.S. [address] [place] [phone] (Vasiliy ac) documented as of this encounter Visit Diagnoses Not on filedocumented in this encounter Additional Health Concerns Infection Onset Date Last Indicated Resolved Time COVID19 Pending 06/03/2020 06/03/2020 06/03/2020 11:51 PM CDT documented as of this encounter
--- OUTSIDE RECORDS SUMMARY | 2022-05-05 14:39 | XMS_ITS | Encounter Summary ---
:1965 Author Organization [facility] Address [address] [place] [address] Care Team Providers Name Role Phone Elsewhere, Pcp Primary Care Provider Unavailable Reason for Visit Outpatient (Routine) - Closed Specialty Diagnoses / Procedures Referred By Contact Refer red To Contact Diagnoses Osteomyelitis Mandible Chronic Issac Woodward M.D., [facility] Procedures OMS Panorex D.D.S. [address] [place] [address] Referral ID Status Reason Start Date Expiration Date Visits Requ ested Visits Authorized [id number] Closed 10/28/2020 10/28/2021 1 1 Encounter Details Date Type Department Care Team Description 10/28/2020 Hospital Encounter Division of Oral and Issac Woodward, Maxillofacial Surgery in [place], Ruma .D.S. [place], [place] [address] [place] [address] [address] [place] [phone] Social History Tobacco Use Types Packs/Day Years [...] Team Description 05/12/2022 Appointment Radiology Jamel Terrazas, TAXI DRIVER SUPERVISOR, C.N.P., D. N.P. [address] [place] [phone] (Wo rk) 05/12/2022 Appointment Oral and Maxillofacial Issac Woodward, Surgery M.Shad, D.D.S. [address] [place] [phone] (Wo rk) documented as of this encounter Visit Diagnoses Not on filedocumented in this encounter Care Teams Apron Worker Relationship Specialty Start Date End Date Elsewhere, Pcp PCP - General Family Medicine 09/22/20 documented as of this encounter
--- OUTSIDE RECORDS SUMMARY | 2022-05-05 14:40 | XMS_ITS | Encounter Summary ---
:1965 Author Organization [facility] Address [address] [place] [id number] Care Team Providers Name Role Phone Unavailable Primary Care Provider Unavailable Reason for Visit MRI/CAT/PET Scan (Routine) - Closed Specialty Diagnoses / Procedures Referred By Contact Refer red To Contact Radiology Diagnoses Osteomyelitis Mandible Chronic Issac Woodward M.D., [facility] Procedures CT Neck Soft Tissue with IV Contrast CT Head Neck with IV Contrast D.D.S. [address] [place] [address] [phone] Referral ID Status Reason Start Date Expiration Date Visits Requ ested Visits Authorized [id number] Closed 03/26/2020 03/26/2021 1 1 Encounter Details Date Type Department Care Team Description 03/26/2020 Hospital Encounter Department of Matteo Woodward Mandible Radiology, Chintan Raymundo M.D., [facility] in D.D.S. [place], [place] [address] [facility] [address] [place] [phone] Social History Tobacco Use Types Packs/Day Years [...] Sign Reading Time Taken Comments Blood Pressure - - Pulse - - Temperature - - Respiratory Rate - - Oxygen Saturation - - Inhaled Oxygen Concentration - - Weight - - Height 175.3 cm (5' 9) 03/26/2020 2:06 PM CDT Body Mass Index - - documented in this encounter Medications at Time [...] mouth daily. Hold until taking oral diet. lisinopriL 1 tablet (10 mg 2 02/13/2020 (PRINIVIL,ZESTRIL) 10 mg total) by gastric tablet tube route daily. amoxicillin-pot Take 1 tablet by 14 tablet 0 02/13/2020 clavulanate (AUGMENTIN) mouth 2 (two) times 875-125 mg per tablet a day. Crush for use in feeding tube amoxicillin-pot Take 1 tablet by 158 tablet 0 02/20/2020 clavulanate (AUGMENTIN) mouth 2 (two) times 875-125 mg per tablet a day. bacitracin zinc 500 Apply 1 packet 0 [...] Jamel Terrazas APRN, C.N.P., D. N.P. [address] [place] [phone] (Wo rk) 05/12/2022 Appointment Oral and Maxillofacial Issac Woodward, Leo Cline, D.D.S. [address] [place] [phone] (Wo rk) documented as of this encounter Procedures Procedure Name Priority Date/Time Associated Diagnosis Comme nts CT NECK SOFT RAD - Routine 03/26/2020 2:34 Osteomyelitis Results fo r this TISSUE WITH IV (most inpatients PM CDT Mandible Chronic proce dure are in CONTRAST and all the results outpatients) section. documented in this encounter Results CT Neck Soft Tissue with IV Contrast (03/26/2020 2:34 PM CDT) Anatomical Region Laterality Modality Neck, Neuroradiology RST LOS, N/A Computed T omography, Computed Neuroradiology ARZ LOS, Neuroradiology T omography FLA LOS Specimen (Source) Anatomical Collection Method Collection Time Re ceived Time Location / / Volume Laterality 03/26/2020 2:41 PM CDT Impressions 03/26/2020 3:19 PM CDT Recent partial resection of the right mandible with reconstruction. Small amount of adjacent fluid ??within the surgical bed and right sublingual space with thickening of the ipsilateral platysma. Findings could reflect expected postoperative changes versus de veloping surgical seroma. No evidence for ??abscess. Narrative 03/26/2020 3:19 PM CDT EXAM: CT NECK SOFT TISSUE WITH IV CONTRAST COMPARISON: CT neck soft tissues with co ntrast 01/15/2020 FINDINGS: Interval right partial mandibular resect ion with bone graft and plate/screw fixation. No new areas of lucency or cor tical erosion. Small amount of adjacent fluid and thickening of the ipsilateral platysma. No peripheral hyperattenuation/enhancement to suggest mature abscess. Asymmetric enlargement of the right submandibular salivary glan d without significant architectural distortion. Findings may reflect mild re active edema. Subtle asymmetric enlargement of the right-sided level 2 c ervical lymph nodes, likely reactive. No mass effect upon the airway. The remainder of the examination appears stable compared to prior study. Procedure Note Danna Jacob M.D. - 03/26/2020F ormatting of this note might be different from the original. EXAM: CT NECK SOFT TISSUE WITH IV CONTRA ST COMPARISON: CT neck soft tissues with co ntrast 01/15/2020 FINDINGS: Interval right partial mandibular resect ion with bone graft and plate/screw fixation. No new areas of lucency or cor tical erosion. Small amount of adjacent fluid and thickening of the ipsilateral platysma. No peripheral hyperattenuation/enhancement to suggest mature abscess. Asymmetric enlargement of the right submandibular salivary glan d without significant architectural distortion. Findings may reflect mild re active edema. Subtle asymmetric enlargement of the right-sided level 2 c ervical lymph nodes, likely reactive. No mass effect upon the airway. The remainder of the examination appears stable compared to prior study. IMPRESSION: Recent partial resection of the right ma ndible with reconstruction. Small amount of adjacent fluid within th e surgical bed and right sublingual space with thickening of the ipsilateral platysma. Findings could reflect expected postoperative changes versus de veloping surgical seroma. No evidence for abscess. Issac Woodward M.D., D.D.S. IMG CT PROCEDURES documented in this encounter Visit Diagnoses Diagnosis Osteomyelitis Mandible Chronic documented in this encounter Administered Medications Inactive Administered Medications - up to 3 most recent administrations Medication Order MAR Action Action Date Dose Rate Site iohexoL 300 mg iodine/mL solution Given 03/26/2020 2:25 PM CDT 1 00 mL 1-200 mL (OMNIPAQUE) 1-200 mL, intravenous, Once in imaging, contrast, Starting on Tue03/26/20 at 1358, For 1 dose, Imaging Protocol Orders, Dose per Radiant Medication Guidelines sodium chloride (PF) 0.9 % injection 1-1 00 mL Given 03/26/2020 2:25 PM CDT 35 mL 1-100 mL, intravenous, Once, On Tue03/26/20 at 1400, For 1 dose, Imaging Protocol Orders documented in this encounter
--- OUTSIDE RECORDS SUMMARY | 2022-05-05 14:40 | XMS_ITS | Encounter Summary ---
:1965 Author Organization [facility] Address [address] [place] [address] Care Team Providers Name Role Phone Unavailable Primary Care Provider Unavailable Reason for Visit Reason Comments COVID Nurse Line Encounter Details Date Type Department Care Team Description 03/25/2020 Clinical Communication Division of Oral and CrissyJOSEE Nurse Line Maxillofacial Surgery Issac Raymundo M.D., in [facility] [address] [facility] [address] [place] [phone] Social History Tobacco Use Types Packs/Day Years Used Date Smoking Tobacco: Every Day Cigarettes 1 35 S tarted: 12/14/1984 Smokeless Tobacco: Never Alcohol Use Standard Drinks/Week Comments Yes 14 (1 standard drink = 0.6 oz pure alcoh ol) Sex Assigned at Date Recorded Female 12/22/2018 12:54 PM CDT documented as of this encounter Miscellaneous Notes Telephone Encounter - Ana Lilia Mauricio - 03/25/2020 8:34 AM CDT ([facility] and [facility] locations only: If the patient is not having symptoms and is requesting COVID-19 Nasal Swab testing only, use the process listed in the [facility] Request[facility] Test OTG COVID-19 [place] Patient Requesting COVID PCR Test). 1. Do you have a pending COVID test because you had symptoms or exposure to someone with COVID or you have tested positive for COVID in the last 30 days? no 2. In the past 14 days, do you, anyone in the household, or anyone you have had prolonged exposure have any of the following? a. Fever greater than or equal to 37.8 C (100.0 F)? no b. New symptoms (Specifically: headache, cough, shortness of breath, respiratory distress, sore throat, diarrhea, nausea, vomiting, chills and repeated shaking with chills, myalgia's (muscle aches), loss of smell, or change or loss of taste sensation)? no c. Had close contact with a patient with known or possible COVID-19 in the last 14 days? no documented in this encounter Plan of Treatment Upcoming Encounters Date Type Specialty Care Team Description 05/12/2022 Appointment Radiology Jamel Terrazas APRN, C.N.P., D. N.P. [address] [place] [phone] (Wo rk) 05/12/2022 Appointment Oral and Maxillofacial Issac Woodward, Surgery Marlyn, D.D.S. [address] [place] [phone] (Wo rk) documented as of this encounter Visit Diagnoses Not on filedocumented in this encounter
--- OUTSIDE RECORDS SUMMARY | 2022-05-05 14:40 | XMS_ITS | Encounter Summary ---
:1965 Author Organization [facility] Address [address] [place] [address] Care Team Providers Name Role Phone Unavailable Primary Care Provider Unavailable Reason for Referral Outpatient (Routine) - Closed Specialty Diagnoses / Referred By Contact Referred To Contact Procedures Oral and Maxillofacial Issac Woodward [facility] Surgery Marlyn, D.D.S. [address] [place] [phone] Referral ID Status Reason Start Date Expiration Date Visits Requ ested Visits Authorized Closed 02/20/2020 02/19/2021 1 1 Scheduling Instructions Week of 03/22, SHELDON Woodward Outpatient (Routine) - Closed Specialty Diagnoses / Procedures Referred By Contact Refer red To Contact Diagnoses Osteomyelitis Mandible Chronic Issac Woodward M.D., [facility] Procedures OMS [employer] D.D.S. [address] [place] [phone] Referral ID Status Reason Start Date Expiration Date Visits Requ ested Visits Authorized [id number] Closed 02/20/2020 02/19/2021 1 1 Outpatient (Routine) - Closed Specialty Diagnoses / Procedures Referred By Contact Refer red To Contact Patria Bright P.A.- C., M.S. [facility] [address] [place] [phone] Referral ID Status Reason Start Date Expiration Date Visits Requ ested Visits Authorized [id number] Closed 02/12/2020 02/11/2021 1 1 Reason for Visit Outpatient (Routine) - Closed Specialty Diagnoses / Procedures Referred By Contact Refer red To Contact Patria Bright P.A.- C., M.S. [address] [phone] Referral ID Status Reason Start Date Expiration Date Visits Requ ested Visits Authorized [id number] Closed 02/12/2020 02/11/2021 1 1 Encounter Details Date Type Department Care Team Description 02/20/2020 Hospital Encounter Division of Oral and Crissy, O steomyelitis Maxillofacial Surgery Issac Raymundo M.D., [facility] [address] [phone] Social History Tobacco Use Types Packs/Day Years [...] day. Crush for use in feeding tube bacitracin zinc 500 Apply 1 packet 0 02/13/2020 1 unit/gram ointment packet topically 2 (two) times a day. calcium carbonate (OS-THADDEUS) Take 1 tablet (500 0 0 02/13/2020 06/06/2020 1,250 mg (500 mg calcium) mg of calcium tablet total) by mouth daily with breakfast. Hold until taking oral diet. gabapentin (NEURONTIN) 50 2 mL (100 mg total) 42 mL 0 0 02/13/2020 03/26/2020 mg/mL solution by gastric tube route every 8 (eight) hours for 7 days. metoclopramide (REGLAN) 5 10 mL (10 mg [...] 01/2106/06/2020 mg/5 mL by gastric tube solutionIndications: Acute route every 4 Pain Exception (four) hours as needed for pain Indication: Acute Pain Exception. sennosides-docusate sodium 2 tablets by 0 020 06/06/2020 (Senna with Docusate gastric tube route Sodium) 8.6-50 mg per at bedtime. Use tablet while taking narcotics and until bowel movements normal. Hold for diarrhea. documented as of this encounter Consult Notes Issac Woodward M.D., D.D.S. - 02/20/2020 1:00 PM CDT Maxillofacial Surgery Supervisory Note: Mrs. Mcmullen is a very pleasant 54-year-old female with history of right mandibular osteomyelitis now status post segmental mandibular resection and left fibular free flap reconstruction. He represents today for routine 2 week postoperative check. She is seen today in conjunction Dr. Barrios, please see his notes for details of HPI and physical exam. In brief, Mrs. Mcmullen has done extremely well following surgery. She has attempted ambulation without her Cam boot and states that this has gone well.She was cleared to begin walking without the Cam boot. Her donor site looks excellent. We reiteratedwound care instructions for this area, including the need for intermittent wrapping should she experience dependent swelling of the area as she increases her activity. We also discussed her pain control regimen and we will transition her to 300 mg gabapentin TID. I will plan to follow up with an approximately 6 weeks post surgery for a additional reassessment appointment. At that point fully anticipat e being able to clear her to progress to an unrestricted diet. Her nasogastric feeding tube was removed chairside. He was very appreciative of the follow-up consultation. Her questions were welcomed and answered. She was discharged in a stable condition. Electronically signed by: Issac Woodward M.D., Ruma.Ruma.S. 02/20/20 12:45 PM CDT Rick Barrios D.D.S. - 02/20/2020 12:03 PM CDT SUBJECTIVE Paola Mcmullen is a 54 y.o. female who presents to wellness director for a 2 week postoperative visit. 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 Overall, the patient states that she is doing very well postoperatively. She denies any swelling, drainage, or other signs of infection. Her pain is well controlled with acetaminophen and gabapentin. Shehas been ambulating, both with and without the CAM boot without issue. Her tracheostomy remains patent, which is a minor annoyance to the patient. She continues to take her Augmentin as recommended by Infectious Disease. OBJECTIVE Previous Medical History Past Medical History: Diagnosis Date ??? Apnea Sleep Obstructive Previous Surgical History Past Surgical History: Procedure Laterality Date ??? BIOPSY OF THE MANDIBLE Right 12/14/2018 Procedure: Biopsy and Bone Culture Right Mandible.; Surgeon: Issac Woodward M.D., D.D.S.; Location: [facility] OR ??? EGD - NG/NJ FEEDING TUBE PLACEMENT N/A 02/07/2020 Procedure: NASOGASTRIC FEEDING TUBE PLACEMENT.; Surgeon: Issac Woodward M.D., D.D.S.; Location: [facility] ??? EXPLORATION INCISION Right 12/14/2018 Procedure: EXPLORATION Right Posterior Mandible.; Surgeon: Issac Woodward M.D., D.D.S.; Location: [facility] ??? NECK DISSECTION Right 02/07/2020 Procedure: Neck Dissection; Surgeon: Issac Woodward M.D., D.D.S.; Location: [facility] ??? OTHER Right 02/07/2020 Procedure: Custom plate to right mandible.; Surgeon: Huseyin Bolton M.D., ShadMKayla; Location: [facility] ??? OTHER CONVERTED SHX (SEE COMMENT) N/A 12/20/2006 >Laparotomy. DEANA. ??? RECONSTRUCTION MANDIBLE WITH ENDOSSEOUS IMPLANT Right 02/07/2020 Procedure: Reconstruction Neomandible With Endosseous Implant; Surgeon: Huseyin Bolton M.D., Ruma.MAmaraDAmara; Location: [facility] ??? SEGMENTAL RESECTION MANDIBLE Right 02/07/2020 Procedure: SEGMENTAL RESECTION MANDIBLE.; Surgeon: Issac Woodward M.D., D.D.S.; Location: [facility] ??? TRACHEOSTOMY N/A 02/07/2020 Procedure: TRACHEOSTOMY.; Surgeon: Issac Woodward M.D., D.D.S.; Location: [facility] ??? VASCULARIZED FIBULA DESHAWN-OSSEOUSCUTANEOUS GRAFT TO MANDIBLE Left 02/07/2020 Procedure: VASCULARIZED FIBULA DESHAWN-OSSEOUSCUTANEOUS GRAFT TO MANDIBLE.; Surgeon: Huseyin Bolton M.D.,Ruma.MKayla; Location: [facility] Social History Social History Socioeconomic History ??? Marital status: Spouse name: Not on file ??? Number of children: Not on file ??? Years of education: Not on file ??? Highest education level: Not on file Occupational History ??? Not on file Social Needs ??? Financial resource strain: Not on file ??? Food insecurity Worry: Not on file Inability: Not on file ??? Transportation needs Medical: Not on file Non-medical: Not on file Tobacco Use ??? Smoking status: Current Every Day Smoker Packs/day: 1.00 Years: 35.00 Pack years: 35.00 Types: Cigarettes Start date: 12/14/1984 ??? Smokeless tobacco: Never Used Substance and Sexual Activity ??? Alcohol use: Yes Alcohol/week: 14.0 standard drinks Types: 14 Shots of liquor per week ??? Drug use: No ??? Sexual activity: Defer Lifestyle ??? Physical activity Days per week: Not on file Minutes per session: Not on file ??? Stress: Not on file Relationships ??? Social connections Talks on phone: Not on file Gets together: Not on file Attends faith service: Not on file Active member of club or organization: Not on file Attends meetings of clubs or organizations: Not on file Relationship status: Not on file ??? Intimate partner violence Fear of current or ex partner: Not on file Emotionally abused: Not on file Physically abused: Not on file Forced sexual activity: Not on file Other Topics Concern ??? Not on file Social History Narrative ??? Not on file Current Outpatient Medications Medications No active medications Allergies No Known Allergies PHYSICAL EXAM: General: Awake and alert, no acute distress Face: Bilateral facial swelling, consistent with surgery. NG tube sutured in place. Neck: Incision is clean and intact. No evidence of dehiscence or infection. Tracheostomy remains patent, however appears to be healing well and normally. All of in dressing replaced. Leg: Neurovascular function in left leg intact. Incision is clean and intact Final Diagnoses: 1. Osteomyelitis mandible status post resection and left fibular reconstruction IMPRESSION/REPORT/PLAN 1. Osteomyelitis Mandible Chronic Patient Active Problem List Diagnosis ??? Osteomyelitis Mandible Chronic ??? Obstructive Sleep Apnea Adult ??? Hypertension Essential Primary ??? Osteomyelitis Mandible ??? Alcohol Use Unspecified With Unspecified Alcohol Induced Disorder (HCC) ??? Encounter For Screening For Other Viral Diseases (COVID-19) ??? Anemia Posthemorrhagic Acute (Blood Loss Anemia) It was a pleasure to evaluate Mrs. Mcmullen in clinic today. Overall, she appears to be doing extremely well. We removed her nasogastric tube and discussed ongoing cares of her left leg donor site incision, including application of Vaseline TID. She can ambulate without her CAM boot as tolerated, however we also discussed if she experiences swelling that she can elevate the leg and wrap it with an Ashu wrap. We discussed that her tracheostomy is healing well and could take up to a month and possibly more to fully resolve. She can proceed to a soft no chew diet until 6 weeks postoperatively. The patient was in agreement with this plan. We will plan to see her back at 6 weeks postoperatively. Questions were welcomed and answered and the patient was dismissed in good condition. documented in this encounter Miscellaneous Notes Addendum Note - Rick Barrios D.D.S. - 02/20/2020 12:03 PM CDT Encounter addended by: Rick Barrios D.D.S. on: 02/20/2020 5:03 PM Actions taken: Clinical Note Signed documented in this encounter Plan of Treatment Upcoming Encounters Date Type Specialty Care Team Description 05/12/2022 Appointment Radiology Jamel Terrazas APRN, C.N.P., D. N.P. [address] [place] [phone] (Vasiliy ac) 05/12/2022 Appointment Oral and Maxillofacial Issac Woodward, Leo Cline, D.D.S. [address] [place] [phone] (Vasiliy ac) Scheduled Referrals Name Type Priority Associated Order Schedule Diagnoses Oral and Outpatient Routine Once for 1 Maxillofacial Surgery Referral Yeny coulter Post Op (clinic) starting until 0 Oral and Outpatient Routine Expected: Maxillofacial Surgery Referral 2019 office visit (clinic) (Appro ximate), Expires: 2022 documented as of this encounter Visit Diagnoses Diagnosis Osteomyelitis Mandible Chronic - Primary documented in this encounter
--- OUTSIDE RECORDS SUMMARY | 2022-05-05 14:40 | XMS_ITS | Encounter Summary ---
:1965 Author Organization [facility] Address [address] [place] [address] Care Team Providers Name Role Phone Unavailable Primary Care Provider Unavailable Reason for Referral Outpatient (Routine) - Closed Specialty Diagnoses / Referred By Contact Referred To Contact Procedures Oral and Maxillofacial Issac Woodward [facility] Marlyn, Ruma.D.S. [address] [place] [phone] Referral ID Status Reason Start Date Expiration Date Visits Requ ested Visits Authorized [id number] Closed 03/26/2020 03/26/2021 1 1 Scheduling Instructions Same day as IFD, MAIL pt a PAG Reason for Visit Outpatient (Routine) - Closed Specialty Diagnoses / Referred By Contact Referred To Contact Procedures Oral and Maxillofacial Issac Woodward [facility] Marlyn, Ruma.D.S. [address] [place] [phone] Referral ID Status Reason Start Date Expiration Date Visits Requ ested Visits Authorized [id number] Closed 03/26/2020 03/26/2021 1 1 Encounter Details Date Type Department Care Team Description 05/06/2020 Hospital Encounter [facility] Issac Raymundo M.D., Evette aguiar (Primary Dx) in [facility] [place] [address] [place] [phone] Social History Tobacco Use Types Packs/Day Years [...] Consult Notes Issac Woodward M.D., D.D.S. - 05/06/2020 2:40 PM CDT SUBJECTIVE CHIEF COMPLAINT / REASON FOR VISIT Postoperative follow up HISTORY OF PRESENT ILLNESS Mrs. Mcmullen returns to see me today for interval assessment following segmental mandibular resection due to mandibular osteomyelitis. She was seen by Prosthodontics as well as Infectious Disease earlier today. I do not yet have notes back from the Prosthodntics team yet, however she states that Dr. Boone was entertaining the idea of going straight to final prosthesis and omitting a provisional stage. The infectious disease team recommended discontinuing the Augmentin. Baseline labs were being drawntoday for comparison to any future changes off antibiotics. Mrs. Mcmullen reports the she is no longer taking gabapentin. She reports no issues with pain. She has not had any recurrent episodes of facial swelling. There has been no reported drainage. She otherwise expresses no further head or neck complaints today. REVIEW OF SYSTEMS Pertinent items are noted in HPI; all other systems were reviewed per CVIP. OBJECTIVE There were no vitals taken for this visit. PHYSICAL EXAM Physical Exam General: Alert and oriented, No acute distress. Face: No facial swelling or asymmetry. No cutaneous erythema. Oral: Intraorally all wounds are well healed. I can palpate the cover screws of each of the implantstrans mucosally. There is slight banding at the prior incision line however there is minimal access tissue bulk overlying the implant textures. Neck: Well-healed neck incision. No cutaneous erythema. No palpable lymphadenopathy. ASSESSMENT / PLAN 1. Osteomyelitis Mandible Mrs. Mcmullen is a very pleasant 55-year-old female known to my service for having undergone a segmental mandibular resection for right mandibular osteomyelitis now status post fibular free flap reconstruction. Based on examination today I have no concerns for persistent infection. We discussed that the next stage of reconstruction would be to uncover her endosseous implants in proceed with Prosthodontic reconstruction. We can follow-up with Dr. Boone and his team to determine how they would like to proceed relative to a provisional prosthesis verses indexing the implants to proceed directly to final prosthesis. Ultimately, my preference would be to proceed with uncovering in or setting which also allowed for us to perform tissue Re contouring as needed. We will determine whether not the Pros teamwould like to the present in the OR for this uncovering whether they would like to see her on an outpatient following strain for healing abutments. I have no issues with her discontinuing her oral antib iotics. We also discussed that we would plan to obtain repeat imaging of the fibula in the future inorder to assess for interval healing. This would ideally be performed between June to July of this year. Electronically signed by: Issac Woodward M.D., D.D.S. 05/06/20 3:38 PM CDT documented in this encounter Plan of Treatment Upcoming Encounters Date Type Specialty Care Team Description 05/12/2022 Appointment Radiology Jamel Terrazas APRN, C.N.P., D. N.P. [address] [place] [phone] (Vasiliy ac) 05/12/2022 Appointment Oral and Maxillofacial Issac Woodward, Leo Cline, D.D.S. [address] [place] [phone] (Vasiliy ac) Scheduled Referrals Name Type Priority Associated Order Schedule Diagnoses Oral and Outpatient Routine Once for 1 Maxillofacial Surgery Referral Occurr ences office visit (clinic) starti ondina 05/06/2020 until 0 documented as of this encounter Visit Diagnoses Diagnosis Osteomyelitis Mandible - Primary documented in this encounter
--- OUTSIDE RECORDS SUMMARY | 2022-05-05 14:40 | XMS_ITS | Encounter Summary ---
:1965 Author Organization [facility] Address [address] [place] [address] Care Team Providers Name Role Phone Unavailable Primary Care Provider Unavailable Reason for Referral Outpatient (Routine) - Closed Specialty Diagnoses / Procedures Referred By Contact Refer red To Contact Dentistry / Dental Diagnoses Osteomyelitis Mandible Issac Woodward, [facility] Specialties Marlyn, D.D.S. [address] [place] [address] Referral ID Status Reason Start Date Expiration Date Visits Requ ested Visits Authorized [id number] Closed 04/23/2020 04/23/2021 1 1 Scheduling Instructions 05/06/2020 combine with other appts that day, please call pt with added appt time Encounter Details Date Type Department Care Team Description 04/23/2020 Orders Only Division of Oral and Vargas, Jayla L, Osteo myelitis Mandible Maxillofacial Surgery in L.D.A. (Primary Dx) [place], [place] [address] [place] [address] [address] [place] [phone] Social History Tobacco Use Types Packs/Day Years [...] Description 05/12/2022 Appointment Radiology Jamel Terrazas, RHONDA, C.N.PAmara, D. N.P. [address] [place] [address] (Vasiliy rk) 05/12/2022 Appointment Oral and Maxillofacial Issac Woodward, Surgery Marlyn, D.D.S. [address] [place] [address] (Vasiliy ac) Scheduled Referrals Name Type Priority Associated Diagnoses Order S chedule Dental Specialties - Outpatient Routine Osteomyelitis Expect ed: Prosthodontics consult Referral Mandible 05/06, (clinic) Expires: 04/23/2023 documented as of this encounter Visit Diagnoses Diagnosis Osteomyelitis Mandible - Primary documented in this encounter
--- OUTSIDE RECORDS SUMMARY | 2022-05-05 14:40 | XMS_ITS | Encounter Summary ---
:1965 Author Organization [facility] Address [address] [place] [address] Care Team Providers Name Role Phone Unavailable Primary Care Provider Unavailable Reason for Visit Outpatient (Routine) - Closed Specialty Diagnoses / Procedures Referred By Contact Refer red To Contact Diagnoses Osteomyelitis Mandible Chronic Issac Woodward M.D., [facility] Procedures OMS [employer] D.Ruma.S. [address] [place] [phone] Referral ID Status Reason Start Date Expiration Date Visits Requ ested Visits Authorized [id number] Closed 02/20/2020 02/19/2021 1 1 Encounter Details Date Type Department Care Team Description 02/20/2020 Hospital Encounter Division of Oral and Issac Woodward, Maxillofacial Surgery in [place]arlyn, D .D.S. [place], [place] [address] [place] [address] [address] [place] [phone] Social History Tobacco Use Types Packs/Day Years [...] (NEURONTIN) Take 3 capsules 90 capsule 2 02/20/20 20 03/26/2020 100 mg capsule (300 mg total) by mouth 3 (three) times a day. gabapentin (NEURONTIN) 50 2 mL (100 mg [...] mL (5 mg total) 100 mL 0 /11/201906/06/2020 mg/5 mL by gastric tube solutionIndications: route [...] Jamel Terrazas APRN, C.N.P., D. N.P. [address] [place] [phone] (Wo rk) 05/12/2022 Appointment Oral and Maxillofacial Issac Woodward, Surgery Marlyn, D.D.S. [address] [place] [phone] (Wo rk) documented as of this encounter Visit Diagnoses Not on filedocumented in this encounter
--- OUTSIDE RECORDS SUMMARY | 2022-05-05 14:40 | XMS_ITS | Encounter Summary ---
:1965 Author Organization [facility] Address [address] [place] [address] Care Team Providers Name Role Phone Unavailable Primary Care Provider Unavailable Encounter Details Date Type Department Care Team Description 05/08/2020 Clinical Communication Department of Dental Rachel Novak in [place], SusyS. [place], [place] [address] [place] [address] Social History Tobacco Use Types Packs/Day Years Used Date Smoking Tobacco: Every Day Cigarettes 1 35 S tarted: 12/14/1984 Smokeless Tobacco: Never Alcohol Use Standard Drinks/Week Comments Yes 14 (1 standard drink = 0.6 oz pure alcoh ol) Sex Assigned at Date Recorded Female 12/22/2018 12:54 PM CDT documented as of this encounter Miscellaneous Notes Telephone Encounter - Jayla Vargas L.D.A. - 05/08/2020 11:06 AM CDT OI Uncovering scheduled for JUN 06 (TUE) at [facility] Patient had implant placement on 02/07/[address] Issac Woodward. An uncovery will be needed prior torestoration. Patient will be ready to restore in 3 months. Please create a treatment plan for scheduling. Implant Site(s): 29,30,31 Implant Brand: [employer]ocare Implant System: Branemark Mk III TiUnite Implant Platform(s): AIR MARSHAL Telephone Encounter - Lisa Cabrera L.D.A. - 05/08/2020 9:35 AM CDT ----- Message from Rachel Novak D.D.S. sent at 05/08/2020 9:01 AM CDT ----- Regarding: FW: About the treatment of her right mandibular fibular reconstruction. ----- Message ----- From: Issac Woodward M.D., SusySAmara Sent: 05/08/2020 8:53 AM CDT To: Severiano Boone D.M.D., Jimmy Delcid, # Subject: RE: About the treatment of her right mandibu# Sounds good to me! We will schedule accordingly. Issac Laguna ----- Message ----- From: Rachel Novak D.D.S. Sent: 05/07/2020 1:08 PM CDT To: Severiano Boone D.M.D., # Subject: About the treatment of her right mandibular # Hello Dr. Woodward, This is Rachel Novak, a fellow in maxillofacial prosthodontics. Yesterday Dr. Boone and I met . Based on our evaluation of her status, we should be able to fabricate her definitive prosthesis without trial prosthesis. This is what Dr. Boone and I talked about. 1. Implant uncovery and placement of healing abutments - 1st appointment 2. Final impression and Jaw relation record after 2 weeks after 1st appointment. 3. Insertion of implant fixed acrylic hybrid prosthesis (we may skip wax try in appointment.) 4. 24 hour follow up. If you have any questions about the treatment plan above, please let me know. Thank you, Rachel Novak documented in this encounter Plan of Treatment Upcoming Encounters Date Type Specialty Care Team Description 05/12/2022 Appointment Radiology Jamel Terrazas APRN, C.N.P., D. N.P. 200 [place] [address] (Wo rk) 05/12/2022 Appointment Oral and Maxillofacial Issac Woodward, Leo Cline, D.D.S. [address] [place] [address] (Wo rk) documented as of this encounter Visit Diagnoses Not on filedocumented in this encounter
--- OUTSIDE RECORDS SUMMARY | 2022-05-05 14:40 | XMS_ITS | Encounter Summary ---
:1965 Author Organization [facility] Address [address] [place] [address] Care Team Providers Name Role Phone Unavailable Primary Care Provider Unavailable Encounter Details Date Type Department Care Team Description 02/21/2020 Clinical Communication Department of Lorna Mccain Nutrition in [place], [place] [address] [place] [address] [place] [phone] Social History Tobacco Use Types Packs/Day Years Used Date Smoking Tobacco: Every Day Cigarettes 1 35 S tarted: 12/14/1984 Smokeless Tobacco: Never Alcohol Use Standard Drinks/Week Comments Yes 14 (1 standard drink = 0.6 oz pure alcoh ol) Sex Assigned at Date Recorded Female 12/22/2018 12:54 PM CDT documented as of this encounter Miscellaneous Notes Telephone Encounter - Lorna Mccain RDN - 02/21/2020 7:22 AM CDT Patient's feeding tube was removed on 02/20/20. Notified patient's tube feeding supply company, [employer] will sign off. documented in this encounter Plan of Treatment Upcoming Encounters Date Type Specialty Care Team Description 05/12/2022 Appointment Radiology Jamel Terrazas APRN, C.N.P., D. N.P. [address] [place] [phone] (Wo rk) 05/12/2022 Appointment Oral and Maxillofacial Issac Woodward, Surgery Marlyn, D.D.S. [address] [place] [address] (Wo rk) documented as of this encounter Visit Diagnoses Not on filedocumented in this encounter
--- OUTSIDE RECORDS SUMMARY | 2022-05-05 14:40 | XMS_ITS | Encounter Summary ---
:1965 Author Organization [facility] Address [address] [place] [address] Care Team Providers Name Role Phone Unavailable Primary Care Provider Unavailable Reason for Visit Outpatient (Routine) - Closed Specialty Diagnoses / Procedures Referred By Contact Refer red To Contact Infectious Diseases Issac Woodward, Christopher Mondragon M.D., D.D.Macrina Oneill M.D. [address] [place] [address] [place] [phone] Referral ID Status Reason Start Date Expiration Date Visits Requ ested Visits Authorized [id number] Closed 03/26/2020 03/26/2021 1 1 Encounter Details Date Type Department Care Team Description 05/06/2020 Office Visit Section of Infectious Issac Woodward M.D., D.D.S. [address] [place] [phone] [facility] [address] [place] [phone] (Primary Dx) [address] [phone] Social History Tobacco Use Types Packs/Day Years [...] Pressure - - Pulse - - Temperature 37.3 ??C (99.2 ??F) 05/06/2020 1:20 PM CDT Respiratory Rate - - Oxygen Saturation - - Inhaled Oxygen Concentration - - Weight 82.7 kg (182 lb 6.9 oz) 05/06/2020 1:20 PM CDT Height - - Body Mass Index 26.94 03/26/2020 2:06 PM CDT documented in this encounter Progress Notes Alisa Nelson M.D. 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 She underwent biopsy with exploration and culture on 12/14/2018. Microbiology showed polymicrobial infection with Strep mitis group (not S. Pneumo), Rothia, and Haemophilus haemolyticus. She was treated with IV ertapenem for a seven week course and had resolution of symptoms. ?? Unfortunately, it progressed after a year with more right mandibular tenderness and erythema. She returned and was seen by OMFS and ID on 01/15/2020. OMFS requested she get 3-4 weeks of antibiotics followed by surgical resection. She was started on ertapenem on 01/16/2020 and scheduled for her surgery in January. ?? On 02/07/20, she had right neck dissection, segmental resection of the right mandible, an endosseous implantation for reconstruction, free flap formation, and tracheostomy. No cultures sent. Pathology showed bone with marrow space fibrosis and reactive changes. She was discharged on Augmentin. She was seen on 03/26/[address] Schmidt and myself with concerns of increased neck and cheek swelling. Shehad no systemic symptoms. CT scan was consistent with being 6 weeks postop and not definitely abnormal. She denies systemic symptoms including fever. She has experience more pain since stopping gabapentinbut is controlling it with tylenol and Advil. OBJECTIVE Vitals: 05/06/20 1320 Temp: 37.3 ??C Weight: 82.7 kg TempSrc: Tympanic PHYSICAL EXAMINATION Alert and appropriate R facial swelling appears similar to seen when on 03/26/20 Nontender. Mouth appears normal for being s/p several teeth removal ASSESSMENT / PLAN #1 Chronic osteomyelitis of R mandible s/p resection and placement of fibula graft in January of 2019 Recommendations: 1. If oral surgery is not concerned about persistent infection or contamination of hardware at time of surgery - then from the ID standpoint could DC Augmentin 2. I have ordered a CRP, ESR and CBC to be done today to serve as a baseline if she develops difficulties off antibiotics. documented in this encounter Plan of Treatment Upcoming Encounters Date Type Specialty Care Team Description 05/12/2022 Appointment Radiology Jamel Terrazas APRN, C.N.P., D. N.P. [address] [place] [address] (Wo rk) 05/12/2022 Appointment Oral and Maxillofacial Issac Woodward, Leo Cline, D.D.S. [address] [place] [phone] (Wo rk) documented as of this encounter Results CBC with Differential, Blood (05/06/2020 1:49 PM CDT) P athologist Signature Hemoglobin 12.6 11.6 - 05/06/2020 DTL 15.0 g/dL 2:16 PM CDT Hematocrit 39.9 35.5 - 05/06/2020 DTL 44.9 % 2:16 PM CDT Erythrocytes 4.27 3.92 - 05/06/2020 DTL 5.13 2:16 PM CDT x10(12)/L MCV 93.4 78.2 - 05/06/2020 DTL 97.9 fL 2:16 PM CDT RBC Distrib Width 13.0 12.2 - 05/06/2020 DTL 16.1 % 2:16 PM CDT Platelet Count 262 157 - 371 05/06/2020 DTL x10(9)/L 2:16 PM CDT Leukocytes 5.8 3.4 - 9.6 05/06/2020 DTL x10(9)/L 2:16 PM CDT Neutrophils 3.58 1.56 - 05/06/2020 DTL 6.45 2:16 PM CDT x10(9)/L Lymphocytes 1.70 0.95 - 05/06/2020 DTL 3.07 2:16 PM CDT x10(9)/L Monocytes 0.40 0.26 - 05/06/2020 DTL 0.81 2:16 PM CDT x10(9)/L Eosinophils 0.10 0.03 - 05/06/2020 DTL 0.48 2:16 PM CDT x10(9)/L Basophils 0.04 0.01 - 05/06/2020 DTL 0.08 2:16 PM CDT x10(9)/L Specimen Anatomical Collection Method Collection Time Receive d Time (Source) Location / / Volume Laterality Blood (Blood, 05/06/2020 1:49 PM 05/06/20 20 2:08 Venous) CDT PM CDT Alisa Nelson M.D. LAB BLOOD ADD-ON Performing Organization Address City/[facility] Code Phon e Number [facility] - [address] [place] [address] CRP (C-Reactive Protein) (05/06/2020 1:49 PM CDT) P athologist Signature C-Reactive <3.0 <=8.0 mg/L 05/06/2020 DTL Protein (CRP), 3:17 PM CDT S Specimen Anatomical Collection Method Collection Time Receive d Time (Source) Location / / Volume Laterality Blood (Blood, 05/06/2020 1:49 PM 05/06/20 20 2:23 Venous) CDT PM CDT Alisa Nelson M.D. LAB BLOOD ADD-ON Performing Organization Address City/[facility] Phon e Number [facility] - [address] Sedimentation Rate (05/06/2020 1:49 PM CDT) Analysis Performed At Patho logist Time Signature Sedimentation 5 2 - 22 05/06/2020 DTL Rate, B mm/h 3:13 PM CDT Specimen Anatomical Collection Method Collection Time Receive d Time (Source) Location / / Volume Laterality Blood (Blood, 05/06/2020 1:49 PM 05/06/20 20 2:08 Venous) CDT PM CDT Alisa Nelson M.D. LAB BLOOD ADD-ON Performing Organization Address City/State/ZIP Code Phon e Number [facility] - [address] [place], [place] [address] [facility] [place] [address] [facility] [address] documented in this encounter Visit Diagnoses Diagnosis Osteomyelitis Mandible - Primary documented in this encounter
--- OUTSIDE RECORDS SUMMARY | 2022-05-05 14:40 | XMS_ITS | Encounter Summary ---
:1965 Author Organization [facility] Address [address] [place] [address] Care Team Providers Name Role Phone Unavailable Primary Care Provider Unavailable Encounter Details Date Type Department Care Team Description 05/08/2020 Clinical Communication Division of Oral and Crissy, Issac Maxillofacial Surgery in SMarlyn , D.D.S. [place], [place] [address] [facility] [address] [place] [phone] Social History Tobacco Use Types Packs/Day Years Used Date Smoking Tobacco: Every Day Cigarettes 1 35 S tarted: 12/14/1984 Smokeless Tobacco: Never Alcohol Use Standard Drinks/Week Comments Yes 14 (1 standard drink = 0.6 oz pure alcoh ol) Sex Assigned at Date Recorded Female 12/22/2018 12:54 PM CDT documented as of this encounter Miscellaneous Notes Telephone Encounter - Jayla Vargas L.D.A. - 05/08/2020 12:56 PM CDT Spoke with Sofía, all Q's answered Telephone Encounter - Alyssa Salas - 05/08/2020 12:48 PM CDT Patient, Paola Mcmullen, called in requesting to speak to Jayla. She had additional questions about the procedure and scheduling. She is requesting call back at her home phone [phone]. documented in this encounter Plan of Treatment Upcoming Encounters Date Type Specialty Care Team Description 05/12/2022 Appointment Radiology Jamel Terrazas APRN, C.N.P., D. N.P. [address] [place] [phone] (Wo rk) 05/12/2022 Appointment Oral and Maxillofacial Issac Woodward, Surgery Marlyn, D.D.S. [address] [place] [phone] (Wo rk) documented as of this encounter Visit Diagnoses Not on filedocumented in this encounter
--- OUTSIDE RECORDS SUMMARY | 2022-05-05 14:40 | XMS_ITS | Encounter Summary ---
:1965 Author Organization [facility] Address [address] [place] [address] Care Team Providers Name Role Phone Unavailable Primary Care Provider Unavailable Encounter Details Date Type Department Care Team Description 05/07/2020 Clinical Communication Division of Oral and Crissy, Issac Maxillofacial Surgery in SMarlyn , D.D.S. [place], [place] [address] [facility] [address] [place] [phone] Social History Tobacco Use Types Packs/Day Years Used Date Smoking Tobacco: Every Day Cigarettes 1 35 S tarted: 12/14/1984 Smokeless Tobacco: Never Alcohol Use Standard Drinks/Week Comments Yes 14 (1 standard drink = 0.6 oz pure alcoh ol) Sex Assigned at Date Recorded Female 12/22/2018 12:54 PM CDT documented as of this encounter Miscellaneous Notes Telephone Encounter - Alyssa Salas - 05/22/2020 3:41 PM CDT Patient is requesting a letter of medical necessity for her procedure to assist in an appeal. Her surgery was on 02/07/2020 for: 1. Tracheostomy. 2. Right neck dissection for vascular access. 3. Segmental resection of right mandible. 4. Left myoosseous fibular free flap. 5. Insertion of custom reconstruction plate. 6. Insertion of nasogastric feeding tube. 7. Endosseous implant reconstruction of neomandible. ?? Thank you. Telephone Encounter - Alyssa Salas - 05/07/2020 8:40 AM CDT Patient, Paola Mcmullen, called in with some concerns with her surgical coding. Pre-approval was submitted prior to surgery and approved. Post-operatively the codes were changed and the surgery was denied. She is requesting a coding review to make sure the appropriate codes were submitted for her diagnosis of osteomyelitis. Once coding review is completed, please respond back to notify patients. Shemay then move forward with appeal. Thank you documented in this encounter Plan of Treatment Upcoming Encounters Date Type Specialty Care Team Description 05/12/2022 Appointment Radiology Jamel Terrazas APRN, C.N.P., D. N.P. [address] [place] [phone] (Wo rk) 05/12/2022 Appointment Oral and Maxillofacial Issac Woodward, Surgery M.Shad, D.D.S. [address] [place] [phone] (Wo rk) documented as of this encounter Visit Diagnoses Not on filedocumented in this encounter
--- OUTSIDE RECORDS SUMMARY | 2022-05-05 14:40 | XMS_ITS | Encounter Summary ---
:1965 Author Organization [facility] Address [address] [place] [address] Care Team Providers Name Role Phone Unavailable Primary Care Provider Unavailable Encounter Details Date Type Department Care Team Description 05/06/2020 Hospital Encounter Department of Alisa Nelson [facility] Laboratory Medicine Marlyn Oneill and Pathology, [address] [place] [address], in [place], [place] [address] [place] [address] [place], [place] (Work) [phone] Social History Tobacco Use Types Packs/Day Years [...] Terrazas APRN, C.N.P., D. N.P. [address] [place] [address] (Wo rk) 05/12/2022 Appointment Oral and Maxillofacial Issac Woodward, Surgery Marlyn, D.D.S. [address] [place] [phone] (Wo rk) documented as of this encounter Procedures Procedure Name Priority Date/Time Associated Diagnosis Comme nts SEDIMENTATION RATE, B Routine 05/06/2020 1:49 Osteomyelitis Re sults for this PM CDT Mandible procedure are i n the results section. CBC WITH Routine 05/06/2020 1:49 Osteomyelitis Results for this DIFFERENTIAL, B PM CDT Mandible procedure ar e in the results section. C-REACTIVE PROTEIN Routine 05/06/2020 1:49 Osteomyelitis Resul ts for this (CRP), S/P PM CDT Mandible procedure are i n the results section. documented in this encounter Results CBC with Differential, Blood [...] Organization Address City/State/ZIP Code Phon e Number [facility] - [address] [place], [place] [address] [place] [phone] Formerly [facility] 200 [facility] CRP (C-Reactive Protein) (05/06/2020 1:49 PM CDT) P athologist Signature C-Reactive <3.0 <=8.0 mg/L 05/06/2020 DTL Protein (CRP), 3:17 PM CDT S Specimen Anatomical Collection Method Collection Time Receive d Time (Source) Location / / Volume Laterality Blood (Blood, 05/06/2020 1:49 PM 05/06/20 20 2:23 Venous) CDT PM CDT Alisa Nelson M.D. LAB BLOOD ADD-ON Performing Organization Address City/[facility]/ZIP Code Phon e Number [facility] - 200 [place], [place] [address] [place] [address] [place] [address] [facility] Sedimentation Rate (05/06/2020 1:49 PM CDT) Analysis Performed At Patho logist Time Signature Sedimentation 5 2 - 22 05/06/2020 DTL Rate, B mm/h 3:13 PM CDT Specimen Anatomical Collection Method Collection Time Receive d Time (Source) Location / / Volume Laterality Blood (Blood, 05/06/2020 1:49 PM 05/06/20 20 2:08 Venous) CDT PM CDT Alisa Nelson M.D. LAB BLOOD ADD-ON Performing Organization Address City/[facility]/ZIP Code Phon e Number [facility] - 200 [place], [place] [address] [facility] [place] [address] [facility] [address] documented in this encounter Visit Diagnoses Diagnosis Osteomyelitis Mandible documented in this encounter
--- OUTSIDE RECORDS SUMMARY | 2022-05-05 14:40 | XMS_ITS | Encounter Summary ---
:1965 Author Organization [facility] Address [address] [place] [address] Care Team Providers Name Role Phone Unavailable Primary Care Provider Unavailable Reason for Referral Outpatient (Routine) - Closed Specialty Diagnoses / Procedures Referred By Contact Refer red To Contact Infectious Diseases Issac Woodward Cano Ceval los, Edison M.D., Martinez.Macrina Oneill M.D. [address] [facility] [address] [place] [phone] Referral ID Status Reason Start Date Expiration Date Visits Requ ested Visits Authorized Closed 03/26/2020 03/26/2021 1 1 Scheduling Instructions Same day as OMS, MAIL pt a PAG Outpatient (Routine) - Closed Specialty Diagnoses / Referred By Contact Referred To Contact Procedures Oral and Maxillofacial Issac Woodward [facility] Surgery Marlyn, D.D.S. [address] [place] [phone] Referral ID Status Reason Start Date Expiration Date Visits Requ ested Visits Authorized Closed 03/26/2020 03/26/2021 1 1 Scheduling Instructions Same day as IFD, MAIL pt a PAG Outpatient (Routine) - Closed Specialty Diagnoses / Procedures Referred By Contact Refer red To Contact Infectious Diseases CrissyIssac baldwin Cano Ceval los, Edison M.D., Zulema Oneill M.D. [facility] [place] [phone] Referral ID Status Reason Start Date Expiration Date Visits Requ ested Visits Authorized [id number] Closed 03/26/2020 03/26/2021 1 1 Scheduling Instructions Today or tomorrow Outpatient (Routine) - Closed Specialty Diagnoses / Referred By Contact Referred To Contact Procedures Oral and Maxillofacial Issac Woodward [facility] Surgery Marlyn, [place] [phone] Referral ID Status Reason Start Date Expiration Date Visits Requ ested Visits Authorized [id number] Closed 02/20/2020 02/19/2021 1 1 Scheduling Instructions Week of 03/22, SHELDON Woodward Reason for Visit Outpatient (Routine) - Closed Specialty Diagnoses / Referred By Contact Referred To Contact Procedures Oral and Maxillofacial Issac Woodward [facility] Surgery Marlyn, [place] [address] Referral ID Status Reason Start Date Expiration Date Visits Requ ested Visits Authorized [id number] Closed 02/20/2020 02/19/2021 1 1 Encounter Details Date Type Department Care Team Description 03/26/2020 Hospital Encounter Division of Oral and Taryn Woodward [facility] Maxillofacial Surgery Issac Raymundo M.D., Evette Santo in [place], SusyS. (Primary Dx) [address] [place] [phone] Social History Tobacco Use Types Packs/Day Years [...] gastric tube route every 6 (six) hours. lisinopriL 1 tablet (10 mg 2 02/13/2020 (PRINIVIL,ZESTRIL) 10 mg total) by gastric tablet tube route daily. cholecalciferol (VITAMIN Take 1 capsule 0 020 D3) 5,000 Unit capsule (5,000 Units total) by mouth daily. Hold until taking oral diet. fish oil 500 mg capsule Take 1 capsule (500 0 mg total) by mouth daily. Hold until taking oral diet. amoxicillin-pot Take 1 tablet by 14 tablet 0 02/13/2020 clavulanate (AUGMENTIN) mouth 2 (two) times 875-125 mg per tablet a day. Crush for use in feeding tube bacitracin zinc 500 Apply 1 packet 0 02/13/2020 1 unit/gram ointment packet topically 2 (two) times a day. gabapentin (NEURONTIN) Take 3 capsules 90 capsule 2 03/26/20 20 06/06/2020 100 mg capsule (300 mg total) by mouth 3 (three) times a day. amoxicillin-pot Take 1 tablet by 158 tablet 0 02/20/2020 clavulanate (AUGMENTIN) mouth 2 (two) times 875-125 mg per tablet a day. calcium carbonate Take 1 tablet (500 0 02/13/2020 06/06/2020 (OS-THADDEUS) 1,250 mg (500 mg mg of calcium calcium) tablet total) by mouth daily with breakfast. Hold until taking oral diet. metoclopramide (REGLAN) 5 10 mL (10 mg [...] for diarrhea. documented as of this encounter Progress Notes Malorie Waldron D.D.S. - 03/26/2020 10:40 AM CDT SUBJECTIVE ?? Paola Mcmullen is a 54 y.o. 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 She has undergone a right hemimandibulectomy due to osteomyelitis with reconstruction using a left fibula free flap. She continues to take her Augmentin as recommended by Infectious Disease. Today she presents with a concern of neck right cheek swelling that appeared on Tuesday and has subjectively gotten worse. Swelling is accompanied by 6/10 pain and increased drooling. Patient denies fever, difficulty breathing, and difficulty swallowing. Patient states she also recently developed a rash on her right abdomen she is concerned about. Patient is out of gabapentin. OBJECTIVE Allergies No Known Allergies PHYSICAL EXAM: General: Awake and alert, no acute distress Face: Mild right facial swelling present overlying the mandible, swelling of submental region noted.Slight induration appreciated on palpation below chin at midline. Oral: FOM soft, no tenderness on palpation. Neck: Healed incision, no edema or erythema noted Leg: Neurovascular function in left leg intact. Incision is clean, intact, appears dry. IMPRESSION/REPORT/PLAN It was a pleasure to evaluate Mrs. Mcmullen today. There is a concern for new developing swelling along the right mandible and submental region. We plan to obtain a CT scan and follow-up pending results. She is to continue on her gabapentin. We discussed ongoing cares of her left leg incision, specifically to continue application of vaseline. Questions were welcomed and answered. Issac Woodward M.D., Ruma.Ruma.S. - 03/26/2020 10:40 AM CDT Maxillofacial Surgery Supervisory Note: Mrs. Mcmullen is a very pleasant 55-year-old female seen today for interval assessment in the setting of previously treated right mandibular osteomyelitis, segmental resection, and fibular free flap reconstruction. She is seen today in conjunction with Dr. Waldron, please see her notes for details of HPI and physical exam. In brief, Mrs. Mcmullen has had a recent onset of a sensation of fullness, subjective swelling, and redness of the right face and neck approximately 2-3 days duration. Based on examination today she does not have overt clinical signs of cellulitis or soft tissue infection, nevertheless I have recommended a repeat CT scan in order to assess for any signs of underlying infectionor fluid collection. I have also coordinated for her to be seen with our colleagues in Infectious Disease who have been managing her antibiotic regimen (currently on PO Augmentin). I will plan to have her return this afternoon following procurement of her CT scan in order to discuss the imaging, and also further discuss with our colleagues in ID as well. Electronically signed by: Issac Woodward M.D., Ruma.D.S. 03/26/20 2:30 PM CDT ADDENDUM: Mrs. Mcmullen returns to see me this afternoon following completion of her neck CT scan, which was unrevealing for any fluid collection, soft tissue stranding, or abscess. I spoke to the Infectious Disease fellow Dr. Schmidt, and they did not feel strongly about changing her current antibiotic regimen. Given the equivocal nature of her clinical swelling I have not recommended for any further surgical intervention or diagnostics at the present time. Will plan to follow up with her in approximately 1 months time at which point she will be completing her course of oral antibiotics. If she were to develop worsening symptoms or progression of swelling I would have a short threshold for bring her back for repeat imaging, but devoid of any clinical radiographic findings of active infection, I did not feel strongly about pursuing additional treatment of the present time. and Mrs. Mcmullen were in agreement with this plan. Will plan to contact us in the interim should there be a need for a more prompt return for re-evaluation. They were both discharged in a stable condition. Electronically signed by: Issac Woodward M.D., D.D.S. 03/26/20 4:28 PM CDT documented in this encounter Plan of Treatment Upcoming Encounters Date Type Specialty Care Team Description 05/12/2022 Appointment Radiology Jamel Terrazas APRN, C.N.P., D. N.P. [address] [place] [address] (Vasiliy ac) 05/12/2022 Appointment Oral and Maxillofacial Issac Woodward, Surgery Marlyn, D.D.S. [address] [place] [address] (Vasiliy ac) Scheduled Referrals Name Type Priority Associated Order Schedule Diagnoses Oral and Outpatient Routine Once for 1 Maxillofacial Surgery Referral Occurr marylin office visit (clinic) startpromise nj 03/26/2020 until 0 Return to provider in Outpatient Routine Expect ed: another specialty Referral 03/26/2020 , Expires: 2022 Oral and Outpatient Routine Expected: Maxillofacial Surgery Referral 2019 office visit (clinic) (Appro ximate), Expires: 2022 Return to provider in Outpatient Routine Expect ed: another specialty Referral 03/26/2020 (Approximate), Expires: 2022 documented as of this encounter Visit Diagnoses Diagnosis Osteomyelitis Mandible Chronic - Primary documented in this encounter
--- OUTSIDE RECORDS SUMMARY | 2022-05-05 14:40 | XMS_ITS | Encounter Summary ---
:1965 Author Organization [facility] Address [address] [place] [address] Care Team Providers Name Role Phone Unavailable Primary Care Provider Unavailable Encounter Details Date Type Department Care Team Description 05/06/2020 Clinical Communication Division of Oral and Crissy, Issac Maxillofacial Surgery in [place] , D.D.S. [place], [place] [address] [place] [address] [place] [phone] Social History Tobacco Use Types Packs/Day Years Used Date Smoking Tobacco: Every Day Cigarettes 1 35 S tarted: 12/14/1984 Smokeless Tobacco: Never Alcohol Use Standard Drinks/Week Comments Yes 14 (1 standard drink = 0.6 oz pure alcoh ol) Sex Assigned at Date Recorded Female 12/22/2018 12:54 PM CDT documented as of this encounter Miscellaneous Notes Telephone Encounter - Jayla Vargas L.D.A. - 05/06/2020 5:11 PM CDT Sofía Shah is going to be giving you a call regarding the possible need for an appeal with [employer] regarding the implants in her fibula, please let Crissy know the next steps as needed Thanks Jayla documented in this encounter Plan of Treatment Upcoming Encounters Date Type Specialty Care Team Description 05/12/2022 Appointment Radiology Jamel Terrazas APRN, C.N.P., D. N.P. [address] [place] [phone] (Wo yashira) 05/12/2022 Appointment Oral and Maxillofacial Issac Woodward, Leo Cline, D.D.S. [address] [place] [address] (Vasiliy ac) documented as of this encounter Visit Diagnoses Not on filedocumented in this encounter
--- OUTSIDE RECORDS SUMMARY | 2022-05-05 14:40 | XMS_ITS | Encounter Summary ---
:1965 Author Organization [facility] Address [address] [place] [address] Care Team Providers Name Role Phone Unavailable Primary Care Provider Unavailable Reason for Visit Outpatient (Routine) - Closed Specialty Diagnoses / Procedures Referred By Contact Refer red To Contact Infectious Diseases Issac Woodward Cano Ceval los, Edison M.D., Zulema Oneill M.D. [address] [place] [address] [place] [phone] Referral ID Status Reason Start Date Expiration Date Visits Requ ested Visits Authorized [id number] Closed 03/26/2020 03/26/2021 1 1 Encounter Details Date Type Department Care Team Description 03/26/2020 Office Visit Section of Infectious BrayanSimon Osteom yelitis Mandible Diseases in [place] (Primary Dx) [address] [place] [phone] Social History Tobacco Use Types Packs/Day Years [...] Pressure - - Pulse - - Temperature 36.6 ??C (97.8 ??F) 03/26/2020 3:00 PM CDT Respiratory Rate - - Oxygen Saturation - - Inhaled Oxygen Concentration - - Weight 81.7 kg (180 lb 0.1 oz) 03/26/2020 3:00 PM CDT Height - - Body Mass Index 26.58 03/26/2020 2:06 PM CDT documented in this encounter Progress Notes Simon Schmidt M.D., M.B.A. - 03/26/2020 3:50 PM CDT General Infectious Disease Clinic Follow-Up Note SUBJECTIVE DEMOGRAPHIC INFORMATION Patient Name: Paola Mcmullen Clinic Number:[id number] Age: 55 y.o. Birthdate: 1965 Sex: female Service Date/Time: 03/26/20 12:15 PM CDT Referring Provider: Simon Schmidt M.D., M.B.A. REASON FOR CONSULT Right mandibular osteomyelitis HPI: Paola Mcmullen is a 55 y.o. female with history of endometrial carcinoma (s/p DEANA/BSO), hypothyroidism, alcohol use disorder, hypertension and obstructive sleep apnea who is being followed by ID for mandibular osteomyelitis. ?? She was diagnosed with chronic mandibular osteomyelitis secondary to a right molar dental jacques in 2017. She had a maxillofacial CT on 12/13/2018 which revealed imaging findings consistent with chronicosteomyelitis of the right mandible, progressed from prior. [...] reactive changes. She was discharged on Augmentin. A week after discharge, OMS saw her and she was doing well. Today, she was seen again at 6-weeks follow up. She has right neck and cheek swelling for a week associated with pain and drooling. CT scan showed Small amount of adjacent fluid within the surgical bedand right sublingual space with thickening of the ipsilateral platysma. Asymmetric enlargement of the right submandibularsalivary gland without significant architectural distortion Former smoker, quit 09/2019. Not diabetic. REVIEW OF SYSTEMS Twelve point review system is negative except as noted in HPI. REVIEW OF HISTORY The following portions of the patient's history were reviewed and updated as appropriate: allergies,current medications, family history, medical history, social history, surgical history and problem list OBJECTIVE Vitals: 03/26/20 1500 Temp: 36.6 ??C PHYSICAL EXAM General: Not in acute distress, Alert, oriented Neck: swollen on right side, no erythema, slight tenderness Chest: Clear to auscultation bilaterally Lines: Lines, Drains, and Airways Drain GI Tubes (Adults) Nasogastric Nare;Right 47d 21h Wound Incision 02/07/20 Neck Bilateral 48d 0h Incision 02/07/20 Leg Left Soft rollXeroformACE BandageCam boot 47d 23h Incision 12/14/18 Mouth Right 468d 3h DIAGNOSTICS 12/14 ESR and CRP normal ASSESSMENT / PLAN Paola Mcmullen is a 55 y.o. female with chronic right mandibular osteomyelitis s/p right neck dissection, segmental resection of the right mandible, an endosseous implantation for reconstruction, free flap formation, and tracheostomy. No cultures sent. Pathology showed bone with marrow space fibrosis and reactive changes. She is still on Augmentin, and now has increasing swelling on her right neck. She has increasing swelling and CT scan showed swelling of salivary gland, it is probably the reason why she is salivating more recently. It could be the ducts are blocked. We do not think that she has antibiotic failure andthere are no abscesses to drain. We will keep the same antibiotic. IMPRESSION: 1. Right submandibular salivary gland swelling 2. Chronic right mandibular osteomyelitis s/p right neck dissection, segmental resection of the right mandible, an endosseous implantation for reconstruction 02/07/20 RECOMMENDATIONS: 1. Continue Augmentin 875mg every 12 hours until 05/09/20. Discussed with ID attending Dr. Nelson. I personally spent over half of a total 30 minutes face to face with the patient in counseling and discussion and/or coordination of care as described above. Wolfgang Schmidt M.D., M.B.A. Infectious Diseases Fellow Associated attestation - lAisa Nelson M.D. - 03/26/2020 5:19 PM CDT I have reviewed and agree with the documentation of Simon Schmidt M.D., M.B.A. dated 03/26/20. She wasalso inteviewed, examined and counseled by me and I agree completely with Dr. Schmidt's note. documented in this encounter Plan of Treatment Upcoming Encounters Date Type Specialty Care Team Description 05/12/2022 Appointment Radiology Jamel Terrazas APRN, C.N.P., D. N.P. [address] [place] [phone] (Vasiliy ac) 05/12/2022 Appointment Oral and Maxillofacial Issac Woodward, Surgery Marlyn, D.D.S. [address] [place] [phone] (Vasiliy ac) documented as of this encounter Visit Diagnoses Diagnosis Osteomyelitis Mandible - Primary documented in this encounter
--- OUTSIDE RECORDS SUMMARY | 2022-05-05 14:40 | XMS_ITS | Encounter Summary ---
:1965 Author Organization [facility] Address [address] [place] [address] Care Team Providers Name Role Phone Unavailable Primary Care Provider Unavailable Encounter Details Date Type Department Care Team Description 02/20/2020 Clinical Communication Division of Oral and Issac Woodward Maxillofacial Surgery in [place]n Raymundo , D.D.S. [place], [place] [address] [facility] [address] [place] [phone] Social History Tobacco Use Types Packs/Day Years Used Date Smoking Tobacco: Every Day Cigarettes 1 35 S tarted: 12/14/1984 Smokeless Tobacco: Never Alcohol Use Standard Drinks/Week Comments Yes 14 (1 standard drink = 0.6 oz pure alcoh ol) Sex Assigned at Date Recorded Female 12/22/2018 12:54 PM CDT documented as of this encounter Miscellaneous Notes Telephone Encounter - Issac Woodward M.D., Martinez.S. - 04/22/2020 3:57 PM CDT That sounds good to me to have her see pros on 05/06. Thanks! Telephone Encounter - Jayla Vargas L.D.A. - 04/22/2020 11:59 AM CDT KE I spoke with Sofía today and she was asking about her teeth/prosthesis, for end of the year insurance reasons, anyway, are you ok with someone from [facility] seeing her when she comes back on 05/06 with ezequiel TOURE, she stated that she hasnt had really anymore swelling, she thinks shes just having a hard time with the numbness and that's all it really is..... I told her I would mention it and you will evaluate her for the timing on the OU, but that we can try to have someone see her the same day, thoughts? Telephone Encounter - Lou Diamond - 04/22/2020 10:23 AM CDT Patient called in with questions about her upcoming surgery. Please call her at [phone]. Thanks Telephone Encounter - Alyssa Salas - 02/20/2020 5:00 PM CDT Patients records were already sent to her PCP. Telephone Encounter - Jayla Vargas L.D.A. - 02/20/2020 4:59 PM CDT PEGGY signed and sent to scanning, please send all records to patients PCP Telephone Encounter - Alyssa Salas - 02/20/2020 3:45 PM CDT PCP information: [facility] [address] [facility], [address] Dr. Mariam Rust documented in this encounter Plan of Treatment Upcoming Encounters Date Type Specialty Care Team Description 05/12/2022 Appointment Radiology Jamel Terrazas, RHONDA, C.N.P., D. N.P. [address] [place] [phone] (Wo rk) 05/12/2022 Appointment Oral and Maxillofacial Issac Woodward, Leo Cline, D.D.S. [address] [place] [phone] (Wo rk) documented as of this encounter Visit Diagnoses Not on filedocumented in this encounter
--- OUTSIDE RECORDS SUMMARY | 2022-05-05 14:40 | XMS_ITS | Encounter Summary ---
:1965 Author Organization [facility] Address [address] [place] [id number] Care Team Providers Name Role Phone Unavailable Primary Care Provider Unavailable Reason for Visit Reason Comments Dental Consult Outpatient (Routine) - Closed Specialty Diagnoses / Procedures Referred By Contact Refer red To Contact Dentistry / Dental Diagnoses [facility]el[facility] Marlyn, Martinez.S. [address] [place] [phone] Referral ID Status Reason Start Date Expiration Date Visits Requ ested Visits Authorized [id number] Closed 04/23/2020 04/23/2021 1 1 Encounter Details Date Type Department Care Team Description 05/06/2020 Comprehensive Visit Department of Dental Mariah Lr D.M.D. [address] [place] [address] [NULL] [place] [phone] Osteomyelitis Specialties in Rachel Novak D.D.S. Mand[place], [place] Severiano Boone D.M.D. [address] [place] [phone] Social History Tobacco Use Types Packs/Day Years Used Date Smoking Tobacco: Every Day Cigarettes 1 35 S tarted: 12/14/1984 Smokeless Tobacco: Never Alcohol Use Standard Drinks/Week Comments Yes 14 (1 standard drink = 0.6 oz pure alcoh ol) Sex Assigned at Date Recorded Female 12/22/2018 12:54 PM CDT documented as of this encounter Consult Notes Rachel Novak D.D.S. - 05/06/2020 8:15 AM CDT SUBJECTIVE REASON FOR CONSULT Paola Mcmullen is a 55 y.o. female who presents for consultation regarding treatment planning. Patient was referred by Dr. Woodward in [facility]. Outside dental information was not available for today's consultation. HISTORY OF PRESENT ILLNESS History review was accomplished during consultation prior to appointment today. No contraindicationsto dental treatment. Patient was previously diagnosed with mandibular ostomyelitis OBJECTIVE Patient presented for tx.plan for mandibular with fibular free flap because Dr. Woodward in oral surgery refer her to maxillofacial prosthodontic team . Unfortunately she was not seen by us before her reconstruction surgery. Before I met her, I talked with Dr. Boone about her case. Clinical oral examination was accomplished. Mouth opening was evaluated. Maximum opening is 49mm between maxillary and mandibular central incisors. Her bite seems fine. It does not show a lot of shifting to one side. Alginate impression was taken for diagnostic Intraoral scan was done with 3 shape. We talked about her treatment plan, trial implant fixed acrylic and definitive fixed hybrid prosthesis several month after trial prosthesis.. Later Dr. Boone came in and evaluated her again. Her mouth opening is good for reconstructing her. Her Bite is acceptable. Her tissue over fibular flap does not look like skin paddle. Her implants seems a little bit lingually positioned. Based on his evaluation, we can go to definitive prosthesis without trial stage. I will talk with Dr. Boone again and communicate with Dr. Woodward to talk how we are going to proceed her case. VITAL SIGNS There were no vitals filed for this visit. PHYSICAL EXAMINATION Intraoral oral examination was done. DIAGNOSTICS No new radiographs taken today. ASSESSMENT / PLAN #1 Osteomyelitis Mandible Face to face time spent with patient - 60minutes. The patient was explained the effects of a mandibulectomy, or removal of a portion of the lower jaw and microreconstruction with bone, to improve ability to speak, swallow, and chew. Altered anatomy and its effects on mastication and lip competency were explained. Nerve innervation alterations and changes were explained. The medical necessity for prosthetic reconstruction was explained to improve form and function. The patient was explained anatomical deficits to the area in terms of limitations of coordination on function. Recommended treatment option(s) were discussed with the patient, including risks, benefits and any alternatives. An estimate was not given to patient for recommended treatment. We will coordinate her tx plan with oral surgery team. Impressions/records - were made today for study models. Treatment options were discussed with the patient, including risks, benefits and any alternatives. documented in this encounter Plan of Treatment Upcoming Encounters Date Type Specialty Care Team Description 05/12/2022 Appointment Radiology Jamel Terrazas APRN, C.N.PAmara, D. N.P. [address] [place] [phone] (Wo rk) 05/12/2022 Appointment Oral and Maxillofacial [facility] M.D., D.D.S. [address] [place] [phone] (Wo rk) documented as of this encounter Procedures Procedure Name Priority Date/Time Associated Diagnosis Comme nts IMPRESSION Routine 05/06/2020 8:15 AM Osteomyelitis Mandible CDT ITERO SCAN Routine 05/06/2020 8:15 AM Osteomyelitis Mandible CDT DENTAL LAB Routine 05/06/2020 Results for thi s procedure are i n the results section. documented in this encounter Results Dental Lab (05/06/2020) Shaina Brewer - 05/06/2020 Poured and trimmed by Catherine Domínguez Rahcel Novak D.D.S. DENTAL ORDERABLES documented in this encounter Visit Diagnoses Diagnosis Osteomyelitis Mandible documented in this encounter
--- OUTSIDE RECORDS SUMMARY | 2022-05-05 14:41 | XMS_ITS | Encounter Summary ---
:1965 Author Organization [facility] Address [address] [place] [address] Care Team Providers Name Role Phone Unavailable Primary Care Provider Unavailable Encounter Details Date Type Department Care Team Description 02/14/2020 Episode Changes RST HIM Sarha Snow [address] [place] [address] [place] [phone] [place] [phone] Social History Tobacco Use Types Packs/Day Years [...] Terrazas APRN, C.N.P., D. N.P. [address] [place] [phone] (Wo rk) 05/12/2022 Appointment Oral and Maxillofacial [facility], Surgery Marlyn, D.D.S. [address] [place] [phone] (Wo rk) documented as of this encounter Visit Diagnoses Not on filedocumented in this encounter
--- OUTSIDE RECORDS SUMMARY | 2022-05-05 14:41 | XMS_ITS | Encounter Summary ---
:1965 Author Organization [facility] Address [address] [place] [address] Care Team Providers Name Role Phone Unavailable Primary Care Provider Unavailable Reason for Visit Auth/Cert Specialty Diagnoses / Procedures Referred By Contact Refer red To Contact Diagnoses Inflammatory conditions of jaws Procedures NC EXCISN BN KATIE NC EGD PERC PLC GASTROTOMY TUBE NC TRACHEOST FENESTRATION W FLAPS NC FREE OSTQ FLAP W MICROVASC GR TOE NC OSTEOTOMY MANDIBLE SEGMENTAL SEGMENTAL RESECTION MANDIBLE ESOPHAGOGASTRODUODENOSCOPY - NASOGASTRIC/NASOJEJUNAL FEEDING TUBE PLACEMENT TRACHEOSTOMY VASCULARIZED FIBULA DESHAWN-OSSEOUSCUTANEOUS GRAFT TO MANDIBLE Custom plate Referral ID Status Reason Start Date Expiration Date Visits Requ ested Visits Authorized [id number] 1 1 Encounter Details Date Type Department Care Team Description 02/07/2020 Surgery [facility] OR Issac Woodward, SEGMENTAL RESECTION [address] [facility] Marlyn, [place] [address] [address] [facility] [phone] [place] [phone] Social History Tobacco Use Types Packs/Day Years [...] Sign Reading Time Taken Comments Blood Pressure 140/93 02/07/2020 6:21 AM CDT Pulse 63 02/07/2020 6:21 AM CDT Temperature 36.4 ??C (97.5 ??F) 02/07/2020 6:21 AM CDT Respiratory Rate 20 02/07/2020 6:21 AM CDT Oxygen Saturation 98% 02/07/2020 6:21 AM CDT Inhaled Oxygen Concentration - - Weight 82.9 kg (182 lb 12.2 oz) 02/07/2020 6:21 AM CDT Height 174 cm (5' 8.5) 02/07/2020 6:21 AM CDT Body Mass Index 27.48 02/08/2020 10:03 AM CDT documented in this encounter Discharge Summaries Mariah Alvarado, RHONDA, C.N.Reid., M.S. - 02/13/2020 10:58 AM CDT DISCHARGE SUMMARY BRIEF OVERVIEW Hospital: [facility] Discharge Provider: Issac Woodward M.D. Primary Team: LOLITA fiber artist - Crissy No primary care provider on file. Primary Care Provider Phone Number: None Primary Care Provider Fax Number: None Other Providers: None Admission Date: 02/07/2020 Discharge Date: 02/13/2020 PRINCIPAL DIAGNOSIS Osteomyelitis Mandible SECONDARY DIAGNOSES Principal Problem: Osteomyelitis Mandible Active Problems: Hypertension Essential Primary Anemia Posthemorrhagic Acute (Blood Loss Anemia) Resolved Problems: * No resolved hospital problems. * Surgery Information This Encounter Past Procedures (02/13/2019 to Today) Date Procedures Providers Location 02/07/2020 SEGMENTAL RESECTION MANDIBLE., NASOGASTRIC FEEDING TUBE PLACEMENT., TRACHEOSTOMY., VASCULARIZED FIBULA DESHAWN-OSSEOUSCUTANEOUS GRAFT TO MANDIBLE., Custom plate to right mandible., Neck Dissection, Reconstruction Neomandible With Endosseous Implant Issac Woodward M.D., D.D.S.Rick Barrios D.D.S.Huseyin Bolton M.D., D.M.D.Saw Azevedo D.D.S. RST ROET OR DISCHARGE DISPOSITION Home or Self Care [1] ACTIVE ISSUES REQUIRING FOLLOW UP INFECTIOUS DISEASES SIGN OFF NOTE Primary Team 1. Sign off antibiotics: ?? Metronidazole 500 mg IV Q8H. Tentative stop date: at hospital dismissal. ?? Cefazolin 2 g IV Q8H. Tentative stop date: at hospital dismissal. ?? Amoxcillin-Clavulanate 875-125 mg PO twice daily, starting at hospital dismissal. Stop date known: stop date: 05/09/2020 2. Monitoring lab recommendations: No monitoring required. Infectious Diseases Follow up indicated: no follow up indicated. None OUTPATIENT FOLLOW UP Scheduled Appointments 02/20/2020 1:00 PM Issac Woodward M.D., D.D.S. fiber artist For appointment details refer to your Patient Appointment Guide. TEST RESULTS PENDING AT DISCHARGE DETAILS OF HOSPITAL STAY REASON FOR ADMISSION Encounter For Screening For Other Viral Diseases (COVID-19) Osteomyelitis Mandible HOSPITAL COURSE Paola Mcmullen was routinely admitted in the morning to the service of Dr. oBlton and Dr. Woodward. She was brought to the operating room where general anesthesia was provided via endotracheal intubation and then converted to planned tracheostomy. She then underwent segmental resection right mandible, right neck dissection for vascular access, left fibular free flap, and endosseous implant reconstruction mandible. Paola Mcmullen tolerated the procedure and anesthesia well, was extubated, and then brought to the post-anesthesia care unit in stable condition. Following adequate recovery from anesthesia, she was taken to general nursing floor in [facility] where the hospitalization continued uneventfully. She was discharged tolerating tube feedings with pain well controlled on oral medication, ambulatingindependently, and voiding spontaneously. Paola Mcmullen is returning home and received appropriate instruction and materials for ongoingcare. CONSULTS ORDERED DURING THIS ADMISSION IP CONSULT TO INFECTIOUS DISEASES IP CONSULT TO DIETITIAN IP CONSULT TO HOME ENTERAL SERVICE CONDITION AT DISCHARGE stable Discharge instructions were provided to the patient and caregiver(s). documented in this encounter Discharge Instructions Patient InstructionsFern Castro M.A., [facility]-[employer] - 02/12/2020 3:19 PM CDT SPEECH-LANGUAGE PATHOLOGY DYSPHAGIA DISCHARGE SUMMARY DATES SEEN: 02/12/2020 EVALUATION TYPE: Videofluoroscopic Swallow Study (VFSS) RESULTS: Patient's oral and pharyngeal phase of swallow are within functional limits. No aspiration or penetration observed. RECOMMENDATIONS: Patient is to remain NPO for 2 weeks post surgery to allow surgical site to heal. Refer to OMS service for diet recommendations when appropriate. No further Speech Pathology services are recommended at this time. If the patient develops loss of function or has a change in status an evaluation may be warranted. Discharge information provided on 02/12/2020 by Fern Castro M.A., CCC-[employer] Contact information: [facility], Department of Neurology, Discharge Instr - Isis Dawkins P.T. - 02/10/2020 4:28 PM CDT Physical Therapy Discharge Summary MOBILITY RESTRICTIONS/PRECAUTIONS: Weight bearing: Weight bearing as tolerated Other: fall risk and other: Cam boot on the left ankle until MD discharges order CURRENT FUNCTIONAL STATUS: Modified independent for bed mobility, standby assist for transfers and ambulation with front wheeled walker times 33 m RECOMMENDATIONS: No further PT recommended at this time. If the patient develops loss of function a physical therapy evaluation may be warranted. FOLLOW UP IF INDICATED: Discharge information provided on 02/10/2020 by Allie Gentile P.TAmara Contact information: [facility], [address], Discharge Instr - Junior Rodríguez RDN, LD - 02/11/2020 1:47 PM CDT Summary provided by: Junior Smith RDN, KAYLA Date completed: 02/11/2020 Oral diet:: No oral intake. Tube feeds as sole source of nutrition. Feeding tube information: Nasal Gastric 12 Turkish Who placed the tube: [facility] Date of tube placement: February 07, 2020 To maintain enteral access the patient's feeding tube should be replaced at regular intervals. Recommended replacement for nasal feeding tubes is every 4-6 weeks. Tube feeding program: Formula: Nutren 1.5 Thaddeus (Nestle), Substitute Formula: Osmolite 1.5 (Chowdhury) Feeding method: Intermittent gravity Feeding schedule/goal: 5 cans/day (2-1-2) Water flushes: 60 mL before and after each feeding Vitamin/mineral supplementation: Formula at goal volume provides 100% or greater of Recommended Daily Intake for vitamins and minerals. Additional supplementation not needed. This program provides 1875 calories and 85 grams protein per day. Monitor your weight 1-2 time(s) per week. Anthroprometrics: Weight: 85.2 kg Height: 174 cm ELW: 65.1 Kg BMI (Calculated): 28.1 kg/m?? ESTIMATED NEEDS: Total Calorie Needs: 5651-6872 calories/day Method to Estimate Energy Needs: De-Jasper (Basal to Basal + 20%) Weight Used for Equation Calculations: 82.9 kg Total Protein Needs: 99 - 124 grams/day Method to Estimate Protein Needs (g/kg): 1.2 - 1.5 gm/kg Weight Used to Calculate Protein Needs (Kg): 82.9 kg Your Durable Medical Equipment (DME)/Infusion company for tube feeding supplies is: [employer]: ; [place] [employer] . Please contact this DME with questions about delivery or re-ordering your supplies and formula. Please contact the Home Enteral Nutrition team with questions about the recommended tube feeding program and care of your tube. Tuesday - Tuesday, 8 a.m. - 4 p.m. AttachmentsThe following attachments cannot be sent through Care Everywhere. Amoxicillin/Clavulanate Potassium (By mouth) (Costa [place]ican)Bacitracin (On the skin) ([place])Gabapentin (By mouth) ([place])Metoclopramide (By mouth) ([place]) Oxycodone, Rapid Release (By mouth) ([place]ican)documented in this encounter Medications at Time of [...] documented as of this encounter Progress Notes Fern Castro M.A., CCC-[employer] - 02/13/2020 8:30 AM CDT [employer] followed up with patient this morning to review video swallow study results. Per video swallow study, patient's swallow function was WNL, but per OMS service patient is to remain NPO for 2 weeks post surgery. [employer] encouraged patient to continue swallowing secretions/saliva to work swallow muscles. P atient expressed understanding of information provided. No additional speech pathology treatment is needed at this time. [employer] will sign off. Fern Castro M.A., [facility]-[employer] Rick Barrios D.D.S. - 02/13/2020 6:13 AM CDT SUBJECTIVE No issues overnight. OBJECTIVE Recent Labs 02/12/20 0640 HGB 10.1 L WBC 6.6 NA 141 K 4.1 CREATININE 0.64 CALCIUM 9.1 PHYSICAL EXAM General: AAO, NAD, comfortable in bed Face: bilateral facial edema consistent with surgery, NGT in place with tape. Neck: soft, mild edema. No hematoma. Cervical incision c/h/i, moist with bacitracin. Trachea midline. iApp4Me Doppler intact with strong biphasic signal, removed. LIZBETH drain to bulb suction with SS output, removed. Intraoral: Gingiva primarily closed w/o dehiscence. Hemostatic. Minimal FOM edema w/o displacement of tongue. Occlusion is stable and in intended post-op position. RLE: Leg incision is c/h/i. Motor and sensory function of foot intact. PT/DP palpable. Foot is warm.No significant edema. ASSESSMENT / PLAN #1 Hypertension Essential Primary #2 Osteomyelitis Mandible #3 Anemia Posthemorrhagic Acute (Blood Loss Anemia) Procedure(s): SEGMENTAL RESECTION MANDIBLE. NASOGASTRIC FEEDING TUBE PLACEMENT. TRACHEOSTOMY. VASCULARIZED FIBULA DESHAWN-OSSEOUSCUTANEOUS GRAFT TO MANDIBLE. Custom plate to right mandible. Neck Dissection Reconstruction Neomandible With Endosseous Implant Continues to do well. Neck drain removed. Cook Doppler removed. - All medications via NG tube Neuro/Pain: - Acetaminophen 1000 mg QID - Oxycodone 5-10 mg q4h - Gabapentin 100 mg TID CV: - Keep SBP 110-170 - 325 mg aspirin Resp: - Occlusive dressing over tracheostomy site - Suction q4 with soft catheter - Continuous monitoring of O2 sats - Wean supplemental humidified O2 as able - Deep breathing exercises q2h once extubated Renal: - MIVF LR 20 cc/hr- wean as tube feeds increase - Strict I/O's - Lytes: will monitor and replace as needed daily - UCO ID: - IV Ancef/Flagyl while admitted - Augmentin x 4 weeks on discharge Heme: - Monitor CBC daily - Transfusion threshold Hgb < 7.0 GI/Nutrition: - NPO, NGT in place confirmed on Abd film - Nutrition- Tube feeds per nutrition recs - Ca Carbonate 500 susp TID - Antiemetics: Zofran PRN - Senokot QHS PRN for constipation Endo: - No hx of DM, will monitor daily Glc with lytes Activity: - PT consult placed - CAM boot on at all times when not in bed POD 0: Bedrest STRICT POD 1: Edge of bed with CAM boot POD 2: To chair w/ CAM boot POD 3: Ambulate TTWB w/ CAM boot POD 4 and after: FWB as tolerated w/ CAM boot Wound: - Bacitracin to neck incisions BID - Nothing around neck, patient to keep head in neutral position - Incisions closed intraorally - Intraoral Peridex swabs by nursing TID - Leg- Dressing to be changed by primary service - OK for CAM boot to be off while in bed with leg elevated, otherwise CAM should be on Prophylaxis: - Unilateral knee high SCD to non-operated leg - LMWH 40mg daily for DVT prophylaxis - Lansoprazole 30 mg susp daily Dispo: General Floor Care Please contact OMS at [phone] with questions or concerns. Adelina Xavier O.T., MOT - 02/12/2020 10:33 AM CDT Occupational Therapy Acute Hospital Inpatient Treatment SUBJECTIVE Patient's Name: Paola Mcmullen Referring/Attending Provider: Issac Woodward M.D. Medical Diagnosis: Encounter For Screening For Other Viral Diseases (COVID-19) [Z11.59] Osteomyelitis Mandible [M27.2] Reason for Referral: Occupational Therapy Evaluation and Treatment PT ree and treat, general acute Onset Date: 02/07/20 Payor: AETNA / Plan: AET[employer] CHOICE POS II / Product Type: POS / History of Present Illness: Paola Mcmullen is a 54 y.o. 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 Family/Caregiver Present: Yes() Patient/Caregiver Goals: To dismiss home tomorrow Patient Comments: Patient resting in bed upon therapist entering room, agreeable to OT session. Patient reports 4-5/10 pain in jaw. Activity Orders (From admission, onward) Start Ordered 02/08/20 1045 Position head of bed Until discontinued Question Answer Comment Bed position: Elevate HOB Elevate HOB: 30 degrees 02/08/20 1044 02/08/20 1045 Aspiration precautions Continuous 02/08/20 1044 02/07/20 1814 Position head of bed Until discontinued Question Answer Comment Bed position: Elevate HOB Elevate HOB: 30 degrees 02/07/20 1814 Precautions Weight Bearing Status: full weight bearing with cam boot left lower extremity Other Precautions: Cam boot on for transfers and ambulation, left lower extremity Fall Risk (65 and older) Fall in the last 12 months: No Are you fearful of falling?: No OBJECTIVE Vitals monitored throughout session; within normal ranges. Grooming Grooming Where Assessed: Standing sinkside Grooming Delivery: Practiced Grooming Comments: Facilitated oral cares using pink swab, no physical assistance or cues required. LE Dressing LE Dressing: Yes LE Dressing Level of Assistance: Modified independent LE Dressing Where Assessed: Edge of bed LE Dressing Delivery: Practiced LE Dressing Comments: Educated on leida-dressing technique, facilitated donning personal underwear, no physical assistance or cues required. Donned CAM boot without assistance. Shoe Level of Assistance: Modified independent Adult Briefs Level of Assistance: Modified independent Toileting Toileting Level of Assistance: Modified independent Where Assessed: Toilet Toileting Delivery: Practiced Toileting Comments: Facilitated toileting process, including clothing management, no physical assistance or vebral cues required. ADL Comments ADL Comments: Facilitated bed mobility and functional transfers without use of gait aid, modified independence. CAM boot on left lower extremity with all mobility. Facilitated in room functional mobility with modified independence. Education patient on energy saving strategies including pacing activities, scheduling rest breaks, delegating tasks to , and breaking activities into smaller parts as needed. Patient and agreeable to the same. Discussed upper body dressing regarding left neck drain, utilizing leida-dressing technique, having assistance with drain management to ensure properplacement if dismissing with drain in place. Patient and agreeable to the same. Patient and with no additional homegoing concerns, will be completing majority of instrumental activities of daily living upon return home. Education provided today: energy saving strategies, upper and lower body leida- dressing technique, use of shower chair for energy conservation purposes Communication: The patient's nurse was contacted and patient's status was discussed. Patient was left seated edge of bed, RN in room at end of session with call light in reach, all needs met and questions answered. Contact monitoring: PPE used during therapy: Therapist was wearing the following PPE throughout entire session: surgicalmask, eye protection and gloves Family member/caregiver present was wearing a mask: yes Outcome Measures Current ADL Status: [facility] Inpatient Short Form: Putting on and taking off regular lower body clothing?: None Putting on and taking off regular upper body clothing?: None Taking care of personal grooming such as brushing teeth?: None Bathing (including washing, rinsing, drying)?: None Toileting, which includes using toilet, bedpan, or urinal?: None Eating meals?: None Daily Activities Raw Score (max 24): 24 Daily Activities Standardized Score: 57.54 Interpretation: Clinicians answer the [facility] Inpatient Short Form based on observed patient activityand/or clinical judgement (ie. patient can be scored without physically performing each activity) According to scoring guidelines: Those going to home had an average score of 20.1 Those going home with home care had an average score of 17.9 Those going to SNF had an average score of 14 Those going to IRF had an average score of 13.6 Those going to a LTAC had an average score of 11.5 Assessment Discharge Recommendation: Intermittent supervision Clinical Impression: Ms. Mcmullen has made substantial progress towards her OT goals since her last session. She currently completes all self-cares and functional mobility with modified independence and no longer requires use of a gait aid. She has a strong support system as her is able to provide assistance as she requires and assist with instrumental activities of daily living upon return home. They both reportunderstanding of energy saving strategies, upper and lower body leida- dressing techniques, and use ofshower stool as needed. Ms. Mcmullen has met her OT goals and no longer required acute OT services. She and her have no further homegoing concerns. Will complete OT orders. If Ms. Mcmullen has a substantial decrease in functional status, please do not hesitate to re-consult as needed. Rehab potential: Ms. Mcmullen has excellent potential to achieve established occupational therapy goals within the time frame outlined below. Functional Goals: OT Goal #1: Client will demonstrate independence with lower and upper body dressing in order to return to prior level of function and decrease dependence on caregiver.(MET 02/11) OT Goal #2: Client will perform toileting activity with modified independence in order to return to prior level of function and decrease dependence on caregiver.(MET 02/11) OT Goal #3: Client will demonstrate safety and modified independence with functional mobility in order to return to prior level of function.(MET 02/11) Progress: Discontinue OT Discontinue OT: No further OT recommended at this time. If the patient develops loss of function an occupational therapy evaluation may be warranted Plan OT Frequency: 3-5x/wk OT Duration: Until goals met or dismissed from hospital. Requires Inpatient Follow-Up: No Plan Comments: Patient has met goals, discontinue OT services Plan: Alter current plan Treatment interventions may include: Therapeutic exercise, Therapeutic functional activity, Neuromuscular re- education, Self-care/home management Billing: Time Spent with Patient Home Management Training (min): 15 min Time Calculation Total Timed Units (min): 15 min Total Treatment Time (min): 15 min Miri Xavier O.T., JOANNA Howard Sherman P.T., D.P.T. - 02/12/2020 9:32 AM CDT Physical Therapy Inpatient Treatment Note SUBJECTIVE Patient's Name: Paola Mcmullen Referring/Attending: Issac Woodward M.D. Medical Diagnosis: Encounter For Screening For Other Viral Diseases (COVID-19) [Z11.59] Osteomyelitis Mandible [M27.2] Reason for Referral: PT Evaluate and Treat Onset Date: 02/07/20 Payor: AETNA / Plan: [employer]ET[employer] CHOICE POS II / Product Type: POS / History of Present Illness: Paola Mcmullen is a 54 y.o. 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 Family/Caregiver Present: Yes Patient/Caregiver Goals: To dismiss home tomorrow Patient Comments: Patient sitting up in chair, agreeable to PT session Activity Orders (From admission, onward) Start Ordered 02/08/20 1045 Position head of bed Until discontinued Question Answer Comment Bed position: Elevate HOB Elevate HOB: 30 degrees 02/08/20 1044 02/08/20 1045 Aspiration precautions Continuous 02/08/20 1044 02/07/20 1814 Position head of bed Until discontinued Question Answer Comment Bed position: Elevate HOB Elevate HOB: 30 degrees 02/07/20 1814 Precautions Weight Bearing Status: full weight bearing with CAM boot left lower extremity Other Precautions: Cam boot on for transfers and ambulation, left lower extremity OBJECTIVE Treatment consisted of: Transfer - Sit to Stand Level of Assistance: Independent Transfer - Stand to Sit Level of Assistance: Independent Gait Training Level of Assistance: Independent Device: None Distance (m): 50 m Assessment of Gait: steady gait without assistive device, no loss of balance Stairs # Stairs: 5 Rails: 1 Patient was left in bedside chair at end of session with call light in reach, all needs met and questions answered. Contact monitoring: PPE used during therapy: Therapist was wearing the following PPE throughout entire session: surgicalmask, eye protection and gloves Patient was wearing a mask during therapy session: no Outcome Measures AM-PAC Basic Mobility (V.2) How much help from another person do you currently need???If the patienthasn't done an activity recently, how much help from another person do you think he/she would need if he/she tried? 1. Turning from your back to your side while in a flat bed without using bedrails?: None 2. Moving from lying on your back to sitting on the side of a flat bed without using bedrails?: None 3. Moving to and from a bed to a chair (including a wheelchair)?: None 4. Standing up from a chair using your arms (e.g., wheelchair, or bedside chair)?: None 5. To walk in hospital room?: None 6. Climbing 3-5 steps with a railing?: None AM-PAC Basic Mobility (V.2) Raw Score: 24 AM-PAC Basic Mobility (V.2) Standardized Score: 57.68 Interpretation: Clinicians answer the [facility] Inpatient Short Form based on observed patient activityand/or clinical judgement (ie. patient can be scored without physically performing each activity) According to scoring guidelines: Those going to home had an average score of 20.1 Those going home with home care had an average score of 17.9 Those going to SNF had an average score of 14 Those going to IRF had an average score of 13.6 Those going to a LTAC had an average score of 11.5 Assessment Discharge Recommendation: No further therapy recommended From a physical therapy perspective, the level of care above has been recommended for Ms. Mcmullen after hospital discharge. This level of care is based on her functional abilities during today's session. This may change throughout the hospital course and will be updated as appropriate. Clinical Impression of today's session: Paola Mcmullen is progressing quite well now that she is weight bearing as tolerated on her left lower extremity. She demonstrates steady gait mobilizing without an assistive device. She is adequate for discharge from a mobility standpoint and there is no further PT indicated at this time during her hospital stay. PT will sign off. Rehab potential: Ms. Mcmullen has Excellent potential to achieve established physical therapy goals within the time frame outlined below. Functional Goals and Timeframes: PT Inpatient Goals PT Goal #1: Modified independent with gait using a front wheeled walker and Cam boot on the left foot x 30 m, to return home safely - MET 02/11 PT Goal #2: Min assist up 8 steps with Cam boot on the left using 1 rail and 1 hand-held assist and/or cane to return home safe - MET 02/11 PT Goal #3: Independent bed mobility without hospital bed features and or using walker has a bed rail to return home safely Progress: Discontinue PT Discontinue PT: The AM-PAC 6-Click score for Mobility (Comment)() Plan Treatment Plan: Plan: Discontinue therapy PT Frequency: Requires Inpatient Follow-Up: No Treatment interventions may include: Billing: Time Spent with Patient Therapeutic Activity (min): 18 min Total Timed Units (min): 18 min Total Treatment Time (min): 18 min Howard Sherman P.T., D.P.T. Rylie Vitale D.D.S. - 02/12/2020 7:27 AM CDT SUBJECTIVE No issues overnight. OBJECTIVE Recent Labs 02/12/20 0640 HGB 10.1 L WBC 6.6 PHYSICAL EXAM General: AAO, NAD, comfortable in bed Face: bilateral facial edema consistent with surgery, NGT sutured intact Neck: soft, mild edema. No hematoma. Cervical incision c/h/i, moist with bacitracin. Trachea midline. Cook Doppler intact with strong biphasic signal. LIZBETH drain to bulb suction with SS output. Intraoral: Gingiva primarily closed w/o dehiscence. Hemostatic. Minimal FOM edema w/o displacement of tongue. Occlusion is stable and in intended post-op position. RLE: Leg incision is c/h/i. LIZBETH drain to bulb suction with SS output. Motor and sensory function of foot intact. PT/DP palpable. Foot is warm. No significant edema. ASSESSMENT / PLAN #1 Hypertension Essential Primary #2 Osteomyelitis Mandible #3 Anemia Posthemorrhagic Acute (Blood Loss Anemia) Procedure(s): SEGMENTAL RESECTION MANDIBLE. NASOGASTRIC FEEDING TUBE PLACEMENT. TRACHEOSTOMY. VASCULARIZED FIBULA DESHAWN-OSSEOUSCUTANEOUS GRAFT TO MANDIBLE. Custom plate to right mandible. Neck Dissection Reconstruction Neomandible With Endosseous Implant Continues to do well. She was decannulated this morning. - All medications via NG tube Neuro/Pain: - Acetaminophen 1000 mg QID - Oxycodone 5-10 mg q4h - Gabapentin 100 mg TID CV: - Keep SBP 110-170 - 325 mg aspirin Resp: - Occlusive dressing over tracheostomy site - Suction q4 with soft catheter - Continuous monitoring of O2 sats - Wean supplemental humidified O2 as able - Deep breathing exercises q2h once extubated Renal: - MIVF LR 50 cc/hr- wean as tube feeds increase - Strict I/O's - Lytes: will monitor and replace as needed daily - UCO ID: - IV Ancef/Flagyl while admitted - Augmentin x 4 weeks on discharge Heme: - Monitor CBC daily - Transfusion threshold Hgb < 7.0 GI/Nutrition: - NPO, NGT in place confirmed on Abd film - Nutrition- Tube feeds per nutrition recs - Ca Carbonate 500 susp TID - Antiemetics: Zofran PRN - Senokot QHS PRN for constipation Endo: - No hx of DM, will monitor daily Glc with lytes Activity: - PT consult placed - CAM boot on at all times when not in bed POD 0: Bedrest STRICT POD 1: Edge of bed with CAM boot POD 2: To chair w/ CAM boot POD 3: Ambulate TTWB w/ CAM boot POD 4 and after: FWB as tolerated w/ CAM boot Flap: - Doppler checks q1h for 24 hours post op, q2h for 48-72 hours post op, then q4h until Cook is removed Wound: - Bacitracin to neck incisions BID - Nothing around neck, patient to keep head in neutral position - Right neck LIZBETH drain sutured in place, bacitracin to neck incisions BID - Incisions closed intraorally - Intraoral Peridex swabs by nursing TID - Leg- LIZBETH drain to bulb suction, Dressing to be changed by primary service - OK for CAM boot to be off while in bed with leg elevated, otherwise CAM should be on Prophylaxis: - Unilateral knee high SCD to non-operated leg - LMWH 40mg daily for DVT prophylaxis - Lansoprazole 30 mg susp daily Dispo: General Floor Care Please contact OMS at [phone] with questions or concerns. Joan Meng, R.R.T., L.R.T. - 02/11/2020 8:49 AM CDT RT visited patient this morning, seen patient on trach mask 28%, 5L, patient was up in chair, no distress observed. Patient shared RN will be putting patient on hardscape foreman trial, however, she is anxious. Patient is waiting on meds first. No backup Shiley size 4 inner cannula available. RT called for inner cannula for patient. Patient is sating 97%, appears comfortable. Emergency trach bag available in the room. Rick Barrios D.D.S. - 02/11/2020 6:19 AM CDT SUBJECTIVE No issues overnight. Nausea resolved with Reglan. OBJECTIVE Recent Labs 02/10/20 0705 02/10/20 0704 HGB 9.4 L -- WBC 6.3 -- NA -- 143 K -- 4.3 CREATININE -- 0.70 MG -- 1.9 LABPHOS -- 2.6 CALCIUM -- 8.6 PHYSICAL EXAM General: AAO, NAD, comfortable in bed Face: bilateral facial edema consistent with surgery, NGT sutured intact Neck: soft, mild edema. No hematoma. Cervical incision c/h/i, moist with bacitracin. Trachea midline. Shiley tracheostomy sutured in place. Cook Doppler intact with strong biphasic signal. LIZBETH drain to bulb suction with SS output. Intraoral: Gingiva primarily closed w/o dehiscence. Hemostatic. Minimal FOM edema w/o displacement of tongue. Occlusion is stable and in intended post-op position. RLE: Leg incision is c/h/i. LIZBETH drain to bulb suction with SS output. Motor and sensory function of foot intact. PT/DP palpable. Foot is warm. No significant edema. ASSESSMENT / PLAN #1 Hypertension Essential Primary #2 Osteomyelitis Mandible #3 Anemia Posthemorrhagic Acute (Blood Loss Anemia) Procedure(s): SEGMENTAL RESECTION MANDIBLE. NASOGASTRIC FEEDING TUBE PLACEMENT. TRACHEOSTOMY. VASCULARIZED FIBULA DESHAWN-OSSEOUSCUTANEOUS GRAFT TO MANDIBLE. Custom plate to right mandible. Neck Dissection Reconstruction Neomandible With Endosseous Implant Continues to do well. Did not tolerate capping. - All medications via NG tube Neuro/Pain: - Acetaminophen 1000 mg QID - Oxycodone 5-10 mg q4h - Gabapentin 100 mg TID CV: - Keep SBP 110-170 - 325 mg aspirin Resp: - Occlusive dressing over tracheostomy site - Suction q4 with soft catheter - Continuous monitoring of O2 sats - Wean supplemental humidified O2 as able - Deep breathing exercises q2h once extubated Renal: - MIVF LR 50 cc/hr- wean as tube feeds increase - Strict I/O's - Lytes: will monitor and replace as needed daily - UCO ID: - IV Ancef/Flagyl while admitted - Augmentin x 4 weeks on discharge Heme: - Monitor CBC daily - Transfusion threshold Hgb < 7.0 GI/Nutrition: - NPO, NGT in place confirmed on Abd film - Nutrition- Tube feeds per nutrition recs - Ca Carbonate 500 susp TID - Antiemetics: Zofran PRN - Senokot QHS PRN for constipation Endo: - No hx of DM, will monitor daily Glc with lytes Activity: - PT consult placed - CAM boot on at all times when not in bed POD 0: Bedrest STRICT POD 1: Edge of bed with CAM boot POD 2: To chair w/ CAM boot POD 3: Ambulate TTWB w/ CAM boot POD 4 and after: FWB as tolerated w/ CAM boot Flap: - Doppler checks q1h for 24 hours post op, q2h for 48-72 hours post op, then q4h until Cook is removed Wound: - Bacitracin to neck incisions BID - Nothing around neck, patient to keep head in neutral position - Right neck LIZBETH drain sutured in place, bacitracin to neck incisions BID - Incisions closed intraorally - Intraoral Peridex swabs by nursing TID - Leg- LIZBETH drain to bulb suction, Dressing to be changed by primary service - OK for CAM boot to be off while in bed with leg elevated, otherwise CAM should be on Prophylaxis: - Unilateral knee high SCD to non-operated leg - LMWH 40mg daily for DVT prophylaxis - Lansoprazole 30 mg susp daily Dispo: General Floor Care Please contact OMS at [phone] with questions or concerns. Anand Bermeo M.D., D.D.S. - 02/10/2020 7:08 AM CDT SUBJECTIVE No issues overnight. OBJECTIVE PHYSICAL EXAM General: AAO, NAD, comfortable in bed Face: bilateral facial edema consistent with surgery, NGT sutured intact Neck: soft, mild edema. No hematoma. Cervical incision c/h/i, moist with bacitracin. Trachea midline. Shiley tracheostomy sutured in place. Cook Doppler intact with strong biphasic signal. LIZBETH drain to bulb suction with SS output. Intraoral: Gingiva primarily closed w/o dehiscence. Hemostatic. Minimal FOM edema w/o displacement of tongue. Occlusion is stable and in intended post-op position. RLE: Leg incision is c/h/i. LIZBETH drain to bulb suction with SS output. Motor and sensory function of foot intact. PT/DP- strong biphasic signal on hand held doppler. Foot is warm. No significant edema. ASSESSMENT / PLAN #1 Hypertension Essential Primary #2 Osteomyelitis Mandible #3 Anemia Posthemorrhagic Acute (Blood Loss Anemia) Procedure(s): SEGMENTAL RESECTION MANDIBLE. NASOGASTRIC FEEDING TUBE PLACEMENT. TRACHEOSTOMY. VASCULARIZED FIBULA DESHAWN-OSSEOUSCUTANEOUS GRAFT TO MANDIBLE. Custom plate to right mandible. Neck Dissection Reconstruction Neomandible With Endosseous Implant Continues to do well. Did not tolerate capping. Nausea with TF, will add Reglan. - All medications via NG tube Neuro/Pain: - Acetaminophen 1000 mg QID - Oxycodone 5-10 mg q4h - Gabapentin 100 mg TID CV: - Keep SBP 110-170 - 325 mg aspirin Resp: - Occlusive dressing over tracheostomy site - Suction q4 with soft catheter - Continuous monitoring of O2 sats - Wean supplemental humidified O2 as able - Deep breathing exercises q2h once extubated Renal: - MIVF LR 100 cc/hr- wean as tube feeds increase - Strict I/O's - Lytes: will monitor and replace as needed daily - UCI until can ambulate to commode ID: - IV Ancef/Flagyl while admitted - Augmentin x 4 weeks on discharge Heme: - Monitor CBC daily - Transfusion threshold Hgb < 7.0 GI/Nutrition: - NPO, NGT in place confirmed on Abd film - Nutrition- tube feeds to start today per nutrition recs - Ca Carbonate 500 susp TID - Antiemetics: Zofran PRN - Senokot QHS PRN for constipation Endo: - No hx of DM, will monitor daily Glc with lytes Activity: - PT consult placed - CAM boot on at all times when not in bed POD 0: Bedrest STRICT POD 1: Edge of bed with CAM boot POD 2: To chair w/ CAM boot POD 3: Ambulate TTWB w/ CAM boot POD 4 and after: FWB as tolerated w/ CAM boot Flap: - Doppler checks q1h for 24 hours post op, q2h for 48-72 hours post op, then q4h until Cook is removed Wound: - Bacitracin to neck incisions BID - Nothing around neck, patient to keep head in neutral position - Right neck LIZBETH drain sutured in place, bacitracin to neck incisions BID - Incisions closed intraorally - Intraoral Peridex swabs by nursing TID - Leg- LIZBETH drain to bulb suction, Dressing to be changed by primary service - OK for CAM boot to be off while in bed with leg elevated, otherwise CAM should be on Prophylaxis: - Unilateral knee high SCD to non-operated leg - LMWH 40mg daily for DVT prophylaxis - Lansoprazole 30 mg susp daily Dispo: General Floor Care Please contact OMS at [phone] with questions or concerns. Rick Barrios D.D.S. - 02/09/2020 7:48 AM CDT SUBJECTIVE Ms. Mcmullen is without complaints this morning. No acute events overnight. Vital signs normal, afebrile. Pain control with acetaminophen, oxycodone. She has been NPO since surgery. Reports no nausea and no vomiting, has no flatus and no BM yet. Patient has urinary catheter in place. I/O last 3 completed shifts: In: 3899.3 [Enteric (NG/OG) Tube:770] Out: 3722 [Urine:3550; Drains:172] OBJECTIVE VITAL SIGNS Temperature: [36.6 ??C-37.2 ??C] 36.9 ??C Resp Rate: [15-16] 16 Blood Pressure: (113-152)/(71-93) 152/93 FiO2 (%): [28 %-40 %] 28 % SpO2: [91 %-98 %] 96 % Flow Rate (L/min): [5 L/min-10 L/min] 5 L/min Pulse Rate: [77-89] 85 Recent Labs 02/09/20 0409 HGB 9.8 L WBC 7.0 NA 143 K 4.1 CREATININE 0.76 MG 2.1 LABPHOS 2.6 CALCIUM 8.4 L PHYSICAL EXAM General: AAO, NAD, comfortable in bed Face: bilateral facial edema consistent with surgery, NGT sutured intact Neck: soft, mild edema. No hematoma. Cervical incision c/h/i, moist with bacitracin. Trachea midline. Shiley tracheostomy sutured in place, changed to cuffless 4-0 Shiley. Cook Doppler intact with strong biphasic signal. LIZBETH drain to bulb suction with SS output. Intraoral: Skin paddle and gingiva primarily closed w/o dehiscence. Hemostatic. Minimal FOM edema w/o displacement of tongue. Occlusion is stable and in intended post-op position. RLE: Leg incision is c/h/i. LIZBETH drain to bulb suction with SS output. Motor and sensory function of foot intact. PT/DP- strong biphasic signal on hand held doppler. Foot is warm. No significant edema. Thigh skin graft site with absorbant Tegaderm intact without leak. ASSESSMENT / PLAN #1 Osteomyelitis Mandible #2 Encounter For Screening For Other Viral Diseases (COVID-19) Hospital Day: 3 Ms. Mcmullen is 2 Day Post-Op Procedure(s): SEGMENTAL RESECTION MANDIBLE. NASOGASTRIC FEEDING TUBE PLACEMENT. TRACHEOSTOMY. VASCULARIZED FIBULA DESHAWN-OSSEOUSCUTANEOUS GRAFT TO MANDIBLE. Custom plate to right mandible. Neck Dissection Reconstruction Neomandible With Endosseous Implant She is doing well post-operatively. Tracheostomy exchange to 4-0 cuffless Shiley. Begin capping trials as tolerated today. If patient can ambulate to commode we can UCO. - All medications via NG tube Neuro/Pain: - Acetaminophen 1000 mg QID - Oxycodone 5-10 mg q4h - Gabapentin 100 mg TID CV: - Keep SBP 110-170 - 325 mg aspirin Resp: - Cuffless 4-[address] - Suction q4 with soft catheter - Continuous monitoring of O2 sats - Wean supplemental humidified O2 as able - Deep breathing exercises q2h once extubated Renal: - MIVF LR 100 cc/hr- wean as tube feeds increase - Strict I/O's - Lytes: will monitor and replace as needed daily - UCI until can ambulate to commode ID: - IV Ancef/Flagyl while admitted - Augmentin x 4 weeks on discharge Heme: - Monitor CBC daily - Transfusion threshold Hgb < 7.0 GI/Nutrition: - NPO, NGT in place confirmed on Abd film - Nutrition- tube feeds to start today per nutrition recs - Ca Carbonate 500 susp TID - Antiemetics: Zofran PRN - Senokot QHS PRN for constipation Endo: - No hx of DM, will monitor daily Glc with lytes Activity: - PT consult placed - CAM boot on at all times when not in bed POD 0: Bedrest STRICT POD 1: Edge of bed with CAM boot POD 2: To chair w/ CAM boot POD 3: Ambulate TTWB w/ CAM boot POD 4 and after: FWB as tolerated w/ CAM boot Flap: - Doppler checks q1h for 24 hours post op, q2h for 48-72 hours post op, then q4h until Cook is removed Wound: - Bacitracin to neck incisions BID - Nothing around neck, patient to keep head in neutral position - Right neck LIZBETH drain sutured in place, bacitracin to neck incisions BID - Incisions closed intraorally - Intraoral Peridex swabs by nursing TID - Leg- LIZBETH drain to bulb suction, Dressing to be changed by primary service - OK for CAM boot to be off while in bed with leg elevated, otherwise CAM should be on Prophylaxis: - Unilateral knee high SCD to non-operated leg - LMWH 40mg daily for DVT prophylaxis - Lansoprazole 30 mg susp daily Dispo: General Floor Care Please contact S at [phone] with questions or concerns. Jacinto Bright M.D., M.S. - 02/09/2020 7:09 AM CDT INFECTIOUS DISEASE E-PROGRESS NOTE SUBJECTIVE No significant or acute events overnight. Patient remains afebrile, hemodynamically stable. Patient not seen in person today. OBJECTIVE VITAL SIGNS Temperature: [36.6 ??C-37.2 ??C] 36.9 ??C Resp Rate: [15-16] 16 Blood Pressure: (113-152)/(71-93) 152/93 FiO2 (%): [28 %-40 %] 28 % SpO2: [91 %-98 %] 96 % Flow Rate (L/min): [5 L/min-10 L/min] 5 L/min Pulse Rate: [77-89] 85 Admission Weight: 82.9 kg Current Weight: 82.9 kg PHYSICAL EXAM Unable to perform physical exam today given patient contact limitations. DIAGNOSTICS I have reviewed diagnostics. Studies of note include: Results from last 7 days Lab Units 02/09/20 0409 WBC x10(9)/L 7.0 HEMOGLOBIN g/dL 9.8* MCV fL 96.9 PLATELETS AUTO x10(9)/L 175 SODIUM mmol/L 143 POTASSIUM mmol/L 4.1 CHLORIDE mmol/L 104 BUN mg/dL 9 CREATININE mg/dL 0.76 Estimated Creatinine Clearance: 108.2 mL/min (by C-G formula based on SCr of 0.76 mg/dL). ANTIMICROBIAL MEDICATIONS Current: bacitracin zinc, 1 application, BID ceFAZolin, 2 g, Q8H metroNIDAZOLE in NaCl (iso-osm), 500 mg, Q8H Recent: MICROBIOLOGY No results found for this visit on 02/07/20 (from the past 336 hour(s)). IMAGING Dx Abdomen Portable Anterior Posterior 1 View Result Date: 02/07/2020 Impression: Enteric tube with tip in the gastric body. ASSESSMENT / PLAN Paola Mcmullen is a 54 y.o. 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 #1 Osteomyelitis Mandible #2 Encounter For Screening For Other Viral Diseases (COVID-19) The patient appears to be doing well postoperatively. Remains afebrile, hemodynamically stable. She had a several week pre-operative course of ertapenem. She is now covered with cefazolin and metronidazole. We feel she can be dismissed on oral antibiotics for a four week course. Reasonable to continue cefazolin and metronidazole while she is admitted. Will follow the pathology results. Recommend she be discharged on amoxicillin/clavulanate. RECOMMENDATIONS ?? Continue cefazolin 2 g IV Q8H and metronidazole 500 mg IV Q8H while admitted. ?? Discharge on amoxicillin-clavulanate 875-125 mg BID for three months post-op. INFECTIOUS DISEASES SIGN OFF NOTE Primary Team 1. Sign off antibiotics: ?? Metronidazole 500 mg IV Q8H. Tentative stop date: at hospital dismissal. ?? Cefazolin 2 g IV Q8H. Tentative stop date: at hospital dismissal. ?? Amoxcillin-Clavulanate 875-125 mg PO twice daily, starting at hospital dismissal. Stop date known: stop date: 05/09/2020 2. Monitoring lab recommendations: No monitoring required. Infectious Diseases 1. Follow up indicated: no follow up indicated. This patient has been staffed with Dr. Unger. This is an e-Consult and the patient was not evaluated in person. We will continue to follow. Please page the [facility] 1 [place] [phone] if there are any questions or concerns. Pilo Bright M.D., M.S. 02/09/20 Junior Smith, NOEMÍ, LD - 02/08/2020 10:11 AM CDT Clinical Nutrition: Initial Assessment RECOMMENDATIONS REQUIRING MD/PROVIDER ORDER Start enteral nutrition: Nutren 1.5. Start feeds at 125 mL TID on day one. Advance to 250 mL TID on day two. Advance to 375 mL TID on day three. On day four, advance to goal of 500-250-500. Water flushes: 60mL before and after feeds Enteral nutrition as recommended will provide 1875 total calories and 85 grams of protein and meets 100% of the Reference Daily Intake of vitamins and minerals per day. For questions about patient's nutritional care please contact pager [phone] on weekdays or [phone] on weekends/holidays. on weekends/holidays. NUTRITION ASSESSMENT: Ms. Mcmullen is a 54 y.o. female admitted for osteomyelitis of mandible. S/p trach, R neck dissection, segmental ressection of R mandible, Endosseous implant reconstruction of neomandible 6/18. Requested to see patient for evaluation of: tube feeding recommendations. Current nutrition orders: Current Diet No oral nutrition, no tube feeding starting at 02/06 1814 Current Nutrition (since admission): Pt NPO since admission Pertinent Labs: Results from last 7 days Lab Units 02/08/20 0348 SODIUM mmol/L 141 POTASSIUM mmol/L 4.9 CREATININE mg/dL 0.75 CRTS1 EGFR NON BLACK mL/min/BSA 89 BUN mg/dL 13 GLUCOSE S mg/dL 116 CALCIUM mg/dL 8.7 Nutrition related medical/surgical history: TALON, HTN Anthropometrics: Height: 174 cm Admission Weight: 82.9 kg Current Weight: 82.9 kg BMI (Calculated): 27.4 kg/m?? Weight change since admission: 0 kg Weight Change History: limited data available in EMR Estimated Needs: Total Calorie Needs: 9820-0043 calories/day Method to Estimate Energy Needs: De-Jasper (Basal to Basal + 20%) Weight Used for Equation Calculations: 82.9 kg Total Protein Needs: 99 - 124 grams/day Method to Estimate Protein Needs (g/kg): 1.2 - 1.5 gm/kg Weight Used to Calculate Protein Needs (Kg): 82.9 kg NUTRITION DIAGNOSIS: Inadequate oral intake related to recent oral surgery as evidenced by need for enteral nutrition to meet calorie/protein needs NUTRITION PLAN/MONITORING/EVALUATION: Interventions: Enteral nutrition, Provide education to increase nutrition knowledge. Monitoring: Diet Progression/NPO Status, Nausea/Vomiting/Diarrhea, Enteral . Nisa Urena, O.T. - 02/08/2020 8:11 AM CDT 02/08/20 0811 Reason Therapy Missed Reason Therapy Missed Medical hold Per activity orders 02/07/20 - POD 0: Bedrest STRICT 02/08/20 -POD 1: Edge of bed with CAM boot 02/09/20 -POD 2: To chair w/ CAM boot 02/10/20 -POD 3: Ambulate TTWB w/ CAM boot 02/11/20 -POD 4 and after: FWB as tolerated w/ CAM boot Plan to initiate occupational therapy on POD 2 to allow for more thorough evaluation for dismissal needs. Today, POD 1, staff air tactical officer should initiate dangling multiple times per day with patient. Electronically signed by: Mendy Urena O.T. 02/08/20 8:12 AM CDT Sheila Batista P.T., D.P.TAmara - 02/08/2020 7:55 AM CDT 02/08/20 0755 General Reason Therapy Missed Medical hold 02/07/20 - POD 0: Bedrest STRICT 02/08/20 -POD 1: Edge of bed with CAM boot 02/09/20 -POD 2: To chair w/ CAM boot 02/10/20 -POD 3: Ambulate TTWB w/ CAM boot 02/11/20 -POD 4 and after: FWB as tolerated w/ CAM boot Will plan to initiate physical therapy evaluation on 02/09/20 (POD 2) to assist with out of bed mobility and assess for ambulation needs. Today, POD 1, staff air tactical officer able to assist patient with dangling. Cary Batista P.T., D.P.T. Rick Barrios D.D.SAmara - 02/08/2020 6:09 AM CDT SUBJECTIVE Ms. Mcmullen is without complaints this morning. No acute events overnight. Vital signs normal, afebrile. Pain control with acetaminophen, oxycodone, Dilaudid pushes. She has been NPO since surgery. Reports no nausea and no vomiting, has no flatus and no BM yet. Patient has urinary catheter in place. I/O last 3 completed shifts: In: 4158.3 [Enteric (NG/OG) Tube:360] Out: 1878 [Urine:1470; Drains:208; Blood:200] OBJECTIVE VITAL SIGNS Temperature: [36.2 ??C-36.9 ??C] 36.8 ??C Heart Rate: [79-93] 81 Resp Rate: [10-22] 16 Blood Pressure: (124-164)/(79-101) 138/89 FiO2 (%): [28 %] 28 % SpO2: [90 %-99 %] 96 % Flow Rate (L/min): [5 L/min] 5 L/min Pulse Rate: [63-93] 88 Recent Labs 02/08/20 0348 HGB 11.2 L WBC 9.6 NA 141 K 4.9 CREATININE 0.75 MG 2.0 LABPHOS 3.2 CALCIUM 8.7 PHYSICAL EXAM General: AAO, NAD, comfortable in bed Face: bilateral facial edema consistent with surgery, NGT sutured intact Neck: soft, mild edema. No hematoma. Cervical incision c/h/i, moist with bacitracin. Trachea midline. Shiley tracheostomy sutured in place, cuff taken down. Cook Doppler intact with strong biphasic signal. LIZBETH drain to bulb suction with SS output. Intraoral: Skin paddle and gingiva primarily closed w/o dehiscence. Hemostatic. Minimal FOM edema w/o displacement of tongue. Occlusion is stable and in intended post-op position. RLE: Leg incision is c/h/i. LIZBETH drain to bulb suction with SS output. Motor and sensory function of foot intact. AT/DP- strong biphasic signal on hand held doppler. Foot is warm. No significant edema. Thigh skin graft site with absorbant Tegaderm intact without leak. ASSESSMENT / PLAN #1 Osteomyelitis Mandible #2 Encounter For Screening For Other Viral Diseases (COVID-19) Hospital Day: 2 Ms. Mcmullen is 1 Day Post-Op Procedure(s): SEGMENTAL RESECTION MANDIBLE. NASOGASTRIC FEEDING TUBE PLACEMENT. TRACHEOSTOMY. VASCULARIZED FIBULA DESHAWN-OSSEOUSCUTANEOUS GRAFT TO MANDIBLE. Custom plate to right mandible. Neck Dissection Reconstruction Neomandible With Endosseous Implant She is doing well post-operatively. Cuff taken down this morning. Begin tube feeds per nutrition recs. ID consult for antibiotics, we appreciate their expertise. Dangle at edge of bed for activity. - All medications via NG tube Neuro/Pain: - Acetaminophen 1000 mg QID - Oxycodone 5-10 mg q4h - Gabapentin 100 mg TID - Carbamazepine 300 mg BID CV: - Keep SBP 110-170 - 325 mg aspirin at 3 pm today Resp: - Cuffed Shiley 6.[address] - Cuff taken down this morning - Suction q4 with soft catheter - Continuous monitoring of O2 sats - Wean supplemental humidified O2 as able - Deep breathing exercises q2h once extubated Renal: - MIVF LR 100 cc/hr- wean as tube feeds increase - Strict I/O's - Lytes: will monitor and replace as needed daily - UCI until can ambulate to commode ID: - IV Ancef/Flagyl while admitted Heme: - Monitor CBC daily - Transfusion threshold Hgb < 7.0 GI/Nutrition: - NPO, NGT in place confirmed on Abd film - Nutrition- tube feeds to start today per nutrition recs - Ca Carbonate 500 susp TID - Antiemetics: Zofran PRN - Senokot QHS PRN for constipation Endo: - No hx of DM, will monitor daily Glc with lytes Activity: - PT consult placed - CAM boot on at all times when not in bed POD 0: Bedrest STRICT POD 1: Edge of bed with CAM boot POD 2: To chair w/ CAM boot POD 3: Ambulate TTWB w/ CAM boot POD 4 and after: FWB as tolerated w/ CAM boot Flap: - Doppler checks q1h for 24 hours post op, q2h for 48-72 hours post op, then q4h until Cook is removed Wound: - Bacitracin to neck incisions BID - Nothing around neck, patient to keep head in neutral position - Right neck LIZBETH drain sutured in place, bacitracin to neck incisions BID - Incisions closed intraorally - Intraoral Peridex swabs by nursing TID - Leg- LIZBETH drain to bulb suction, Dressing to be changed by primary service - OK for CAM boot to be off while in bed with leg elevated, otherwise CAM should be on Prophylaxis: - Unilateral knee high SCD to non-operated leg - LMWH 40mg daily for DVT prophylaxis - Lansoprazole 30 mg susp daily Dispo: General Floor Care Please contact OMS at [phone] with questions or concerns. documented in this encounter Procedure Notes Ricky Concepcion S, R.N. - 02/13/2020 10:43 AM CDTAssociated Order(s): Remove PICC (non-tunneled) or Midline Catheter Remove PICC (non-tunneled) or Midline Catheter Date/Time: 02/13/2020 10:43 AM Performed by: Ricky Concepcion R.N. Authorized by: Mariah Alvarado APRN, ParamNJonathan, M.S. PICC removed, 41 cm tip intact Anand Bermeo M.D., D.D.S. - 02/09/2020 10:38 AM CDTAssociated Order(s): Tracheostomy Replacement Post-Procedure Diagnose(s): Osteomyelitis Mandible Tracheostomy Replacement Date/Time: 02/09/2020 10:38 AM Performed by: Anand Bermeo M.D., D.D.S. Authorized by: Anand Bermeo M.D., D.D.S. Care team members present 1. Rick Barrios D.D.S. PROCEDURE DETAILS Tube type: Inner cannula Tube cuff: Cuffless Tube size (mm): 4.0 CONSENT Consent obtained: verbal Consent given by: patient PRE-PROCEDURE DETAILS Indication: Weaning protocol Appropriate hand hygiene, gown, cap, mask, protective eyewear, sterile gloves, skin preparation, sterile drape, and strict aseptic technique were utilized as applicable for the procedure.: yes SEDATION / ANESTHESIA Anesthesia method: local infiltration Local infiltrate type: lidocaine POST-PROCEDURE DETAILS Tracheostomy secured with: sutures Procedure completed successfully: yes Complications: no immediate complications documented in this encounter Consult Notes Fern Castro M.A., [facility] - 02/12/2020 2:15 PM CDT Speech Pathology Dysphagia Videofluoroscopic Swallow Study (VFSS) Acute Care Session Type: Evaluation Length of session: 45 minutes SUBJECTIVE Referred By: RST fiber artist - Crissy Reason for Consult: Dysphagia History: Mrs. Mcmullen is a very pleasant 54-year-old female who underwent right segmental mandibulectomy, right selective neck dissection (for vascular access), and fibular free flap reconstruction for R mandibular osteomyelitis on 02/07/[address] Woodward and Che. She was decannulated on 02/12/20. Mrs. Mcmullen has previously undergone treatment for osteomyelitis, including surgical debridement and a 6 week course of IV antibiotic therapy in January 2019.?? Please refer to the EMR for complete medical history and details of the current hospitalization. Speech Pathology was consulted for a post-operative swallowing evaluation. Per OMS, the patient's NG tube will remain in place for 2wks to allow for healing. Mrs. Mcmullen has no prior history of dysphagia. Pain Pain Assessment Pain Assessment: 0-10 Numeric Pain Intensity Scale Pain Score: 0 - No pain OBJECTIVE Most Recent Value Consistencies Assessed (MBS) Consistencies Assessed Yes Thin Presentation Straw Lip Closure 0: No labial escape Bolus Transport/Lingual Motion 0: Brisk tongue motion Oral Residue 2: Residue collection on oral structures Oral Residue Location Tongue Onset of Pharyngeal Swallow 3: Bolus head in pyriforms Soft Palate Elevation 0: No bolus between soft palate (SP)/pharyngeal wall (PW) Laryngeal Elevation 1: Partial superior movement of thyroid cartilage/partial approximation of arytenoids to epiglottic petiole Anterior Hyoid Excursion 0: Complete anterior movement Epiglottic Movement 0: Complete inversion Laryngeal Vestibular Closure 0: Complete, no air/contrast in laryngeal vestibule Pharyngeal Stripping Wave 0: Present - complete Pharyngeal Contraction AP View only 0: Complete Pharyngoesophageal Segment Opening 0: Complete distension and complete duration, no obstruction of flow Tongue Base Retraction 1: Trace column of contrast or air between TB and PW Pharyngeal Residue 1: Trace residue within or on pharyngeal structures Pharyngeal Residue Location Pyriform sinuses Esophageal Clearance 0: Complete clearance, esophageal coating Penetration/Aspiration Scale 1: Material does not enter airway Penetration No Aspiration No Puree Presentation Spoon Lip Closure 0: No labial escape Bolus Transport/Lingual Motion 1: Delayed initiation of tongue motion Oral Residue 2: Residue collection on oral structures Oral Residue Location Tongue Onset of Pharyngeal Swallow 1: Bolus head in valleculae Soft Palate Elevation 0: No bolus between soft palate (SP)/pharyngeal wall (PW) Laryngeal Elevation 1: Partial superior movement of thyroid cartilage/partial approximation of arytenoids to epiglottic petiole Anterior Hyoid Excursion 0: Complete anterior movement Epiglottic Movement 0: Complete inversion Laryngeal Vestibular Closure 0: Complete, no air/contrast in laryngeal vestibule Pharyngeal Stripping Wave 0: Present - complete Pharyngoesophageal Segment Opening 0: Complete distension and complete duration, no obstruction of flow Tongue Base Retraction 1: Trace column of contrast or air between TB and PW Pharyngeal Residue 0: Complete pharyngeal clearance Penetration/Aspiration Scale 1: Material does not enter airway Penetration No Aspiration No MBSImP Scores Oral Impairment Score 6 Pharyngeal Impairment Score 1 Esophageal Impairment Score 0 Assessment During the VFSS, lateral and A-P views were recorded as the patient swished and then swallowed sips of water soluble contrast to assess for post-operative leak. Per the radiologist, no leak was identified and we proceeded with barium. Lateral and AP views were recorded as the patient swallowed controlled and larger amounts of thin liquid barium and applesauce. Oral control of all consistencies was good. The pharyngeal swallow response was delayed to the pyriforms with thin liquids and to the valleculae with puree solids. Range of to ngue base retraction and hyolaryngeal elevation were reduced. Epiglottic inversion was within normallimits. Consistencies cleared the pharynx with a single swallow. There was no evidence of laryngeal penetration or aspiration with any consistencies during today's evaluation. AP view revealed a symmetric bolus column through the level of the cervical esophagus. Relaxation through the cricopharyngeal segment was adequate. Overall, patient's oral and pharyngeal phases of swallow are WFL. No instances of penetration or aspiration were observed with any trials. The images of today's swallow study were reviewed in detail with the patient. Select images and clips from today's study are available in QREADS. Contact Monitoring: Clinician was wearing the following PPE for the duration of today's session(s): surgical mask and eye protection Diagnosis: Within Functional Limits (WFL) Goals: Dysphagia Short Term Goal 1 Dysphagia Short Term Goal 1: Patient will complete video swallow study Dysphagia Short Term Goal 1 Progress Toward Goal: Goal met: complete goal Plan Recommendations: 1. Patient is to remain NPO per OMS service for two weeks to allow surgical site to heal. 2. Patient's swallow function is safe for thin liquids and puree solids per video swallow. Refer to OMS service for diet recommendations once cleared to eat/drink. 3. No further Speech Pathology services indicated at this time. Follow up with Speech Pathology as an outpatient per the discretion of OMS Discharge Location: Home [employer] Ongoing Services: Ongoing formal Speech Pathology services Duration of Treatment: When goals are met Rehab Potential: Excellent Tabatha Dominique M.S., CCC-[employer] - 02/12/2020 9:10 AM CDT Speech Pathology Clinical Swallow Evaluation Acute Care Session Type: Evaluation Length of session: 10 minutes SUBJECTIVE Referred By: RSDa fiber artist - Crissy Reason for Consult: Dysphagia History: Mrs. Mcmullen is a very pleasant 54-year-old female who underwent right segmental mandibulectomy, right selective neck dissection (for vascular access), and fibular free flap reconstruction for R mandibular osteomyelitis on 02/07/[address] Woodward and Che. She was decannulated on 02/12/20. Mrs. Mcmullen has previously undergone treatment for osteomyelitis, including surgical debridement and a 6 week course of IV antibiotic therapy in January 2019. Please refer to the EMR for complete medical historyand details of the current hospitalization. Speech Pathology was consulted for a post-operative swallowing evaluation. Per OMS, the patient's NG tube will remain in place for 2wks to allow for healing. Baseline Mrs. Mcmullen has no prior history of dysphagia. OBJECTIVE Oral Motor: Oral Motor Dentition: Adequate, Some missing teeth Facial Symmetry: (-1) Mild, Right asymmetry Lingual Structure and Function Lingual Structure and Function: Impaired Lingual ROM: (-1) Mild Lateral Lingual Strength Left: (-1) Mild Lateral Lingual Strength Right: (-1) Mild Motor Speech: Voice: Impaired Harsh: (1) Mild Articulation: Within Normal Limits (WNL) Rate and Prosody: Within Normal Limits (WNL) Speech AMRs: Within Normal Limits Speech SMRs: Within Normal Limits Intelligibility: Intelligible Consistencies Assessed in Evaluation: None this session Assessment Mrs. Mcmullen was seen for a clinical swallowing evaluation by Speech Pathology. She was awake, alert, and seated fully upright in the recliner chair for the assessment. She was decannulated earlier this morning and has not noticed any changes to breathing. Oral motor exam was notable for mild R-sidedlower facial asymmetry in the setting of post-operative edema. Lingual ROM and strength was mildly reduced bilaterally; patient reported that she was being cautious with movement during this exam, but denied pain/discomfort associated with oral motor tasks. Voice was mildly harsh and resonance was mildly abnormal (throat-focused) in the setting of tracheostomy. Please refer to Objective section for additional details. Oral trials were deferred due to the nature of patient's surgery and recommendations for NPO x2wks to allow for post-operative healing. The patient was observed to swallow her saliva without overt difficulty or report of pain/discomfort. I provided education re: plan for VFSS this afternoon and overall plan of care related to dysphagia.Patient/family asked several thoughtful questions which were answered to their satisfaction within the [employer] scope of practice. Further recommendations to be provided after VFSS. Recommendations: 1. NPO with non-oral nutrition, hydration, and medications per OMS recommendations 2. Frequent oral care to reduce oral bacteria as able - defer to OMS re: best method for oral care 3. VFSS with Speech Pathology today @ 1415 4. Continue skilled Speech Pathology services to address dysphagia while hospitalized. Need for speech services after discharge tbd pending results of VFSS. Contact Monitoring: Clinician was wearing the following PPE for the duration of today's session(s): surgical mask and face shield Goals: No goals at this time; evaluation only. Goals to be added as clinically indicated following VFSS. Diagnosis: Question oropharyngeal dysphagia following surgical intervention for mandibular osteomyelitis Plan Duration of Treatment: LOS Sabine Gomez, NOEMÍ, LD - 02/11/2020 11:21 AM CDTAssociated Order(s): IP CONSULT TO HOME ENTERAL SERVICE Received consult for Home Enteral Nutrition supply arrangements. Reviewed patient's medical record. Please see nutrition assessment and tube feeding recommendations from the hospital dietitian (NOEMÍ) in their note dated 02/08/20. Reason for tube feeding: bridge to oral after segmental ressection of R mandible, endosseous implantreconstruction of neomandible 02/06 due to osteomyelitis of the mandible. Tube information: 12 romanian nasogastric feeding tube (ENFit) Intervention Care Coordination In collaboration with the hospital dietitian (NOEMÍ) who provided Patient with information on: -Expected coverage for home enteral supplies based on the patient's insurance on file -Durable Medical Equipment (DME) company options -Process needed to submit referral to a DME and DME's role in obtaining details about insurance coverage. Estimate of benefits quoted by insurance is not a guarantee of payment. Obtained patient's DME preference and sent referral. Details of supplies ordered: see Chart Review, Other Orders, DME Adult Enteral Nutrition Authorization on file to speak with DME/Infusion Company: yes DME that will provide home enteral supplies: [employer]. Clinical Liaison for questions or concerns [place], [place]: [phone]. [employer] refill number: [phone]. Supply delivery plans: Company will coordinate delivery to patient's room prior to dismissal. Provided DME company contact information noted above and Home Enteral Nutrition contact information.Encouraged them to call with questions after dismissal: [phone] For questions about home enteral supply arrangements prior to dismissal, contact [phone]. Patient verbalized understanding of information discussed. Follow-up Plan Patient is followed in [facility]: Follow-up plan is to contact patient/caregiver after dismissal per protocol. Isis Gentile, P.T. - 02/10/2020 4:22 PM CDT Physical Therapy Inpatient Evaluation/Treatment SUBJECTIVE Patient's Name: Paola Mcmullen Referring/Attending Provider: Issac Woodward M.D. Medical Diagnosis: Encounter For Screening For Other Viral Diseases (COVID-19) [Z11.59] Osteomyelitis Mandible [M27.2] Reason for Referral: PT Evaluate and Treat PT eval and treat, general acute Onset Date: 02/07/20 Payor: [employer] / Plan: [employer] CHOICE POS II / Product Type: POS / PERTINENT MEDICAL / SURGICAL HISTORY: Patient Active Problem List Diagnosis ??? Osteomyelitis Mandible Chronic ??? Obstructive Sleep Apnea Adult ??? Hypertension Essential Primary ??? Osteomyelitis Mandible ??? Alcohol Use Unspecified With Unspecified Alcohol Induced Disorder (HCC) ??? Encounter For Screening For Other Viral Diseases (COVID-19) ??? Anemia Posthemorrhagic Acute (Blood Loss Anemia) Past Surgical History: Procedure Laterality Date ??? BIOPSY OF THE MANDIBLE Right 12/14/2018 Procedure: Biopsy and Bone Culture Right Mandible.; Surgeon: Issac Woodward M.D., D.D.S.; Location: [facility] ??? EXPLORATION INCISION Right 12/14/2018 Procedure: EXPLORATION Right Posterior Mandible.; Surgeon: Issac Woodward M.D., D.D.S.; Location: [facility] ??? OTHER CONVERTED SHX (SEE COMMENT) N/A 12/20/2006 >Laparotomy. DEANA. History of Present Illness: Paola Mcmullen is a 54 y.o. 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 Prior Function / Occupational Profile Level of O'Brien: Independent with ADLs and functional transfers Lives With: Spouse Receives Help From: Family ADL Assistance: Independent Homemaking Assistance: Independent Driving: Independent Home Equipment Home Adaptive Equipment: None Bathroom Equipment: Grab bars in shower(Shower stool available if needed) Home Living Type of Home: House Home Layout: Two level, Able to Live on Main level with bedroom/bathroom, Laundry in basement Home Layout Comments: Does not need to access down stairs. Home Access: Stairs to enter with rails Entrance Stairs: Rails: Both Entrance Stairs: Number of Steps: Eight Bathroom Shower/Tub: Tub/shower unit Bathroom Toilet: Standard Bathroom Accessibility: Yes How Accessible: Accessible via walker Home Living Comments: Client reports her home is an open environment and she won't have any issue using the walker. Family/Caregiver Present: Yes(, Eladio) Patient/Caregiver Goals: to get home Patient Comments: Attempted to see in the morning and patient just return to bed. Patient up in chair in the afternoon was agreeable to ambulate. helpful. Assistance states he can take the weakoff when she 1st comes home and more time if needed. Patient whispering or using white board to communicate. Activity Orders (From admission, onward) Start Ordered 02/11/20 0000 Activity: As Tolerated (For Fibular Free Flap Activity Progression) Until discontinued Comments: May begin ambulating weight bearing as tolerated with CAM boot Question: Activity Level: Answer: As Tolerated 02/08/20 0732 02/08/20 1045 Position head of bed Until discontinued Question Answer Comment Bed position: Elevate HOB Elevate HOB: 30 degrees 02/08/20 1044 02/08/20 1045 Aspiration precautions Continuous 02/08/20 1044 02/07/20 1814 Position head of bed Until discontinued Question Answer Comment Bed position: Elevate HOB Elevate HOB: 30 degrees 02/07/20 1814 Precautions Weight Bearing Status: Today is Postop day 3, patient can be touchdown weight- bearing on the left with Cam boot on 02/10 or postop day for patient can be full weight-bearing as tolerated with Cam boot on. Other Precautions: Cam boot on for transfers and ambulation, left lower extremity Fall Risk (65 and older) Fall in the last 12 months: No Are you fearful of falling?: No OBJECTIVE Pain Assessment Pain Assessment: 0-10 Numeric Pain Intensity Scale Pain Score: 5 - Moderate pain(Patient states her current pain is 4 to 5/10, this morning was 78/10.) Pain Type: Acute pain, Surgical pain Pain Location: Jaw Pain Orientation: Right Pain Radiating Towards: Face Pain Descriptors: Aching, Pressure, Tender, Throbbing Pain Onset: Ongoing Pain Frequency: Constant/continuous Clinical Progression: Gradually improving Effect of Pain on Daily Activities: Difficulty talking, breathing, eating Pain Interventions: Medication (See MAR) Vitals taken during session: Pulse rate: After ambulation 84 bpm and O2 sats: Ninety-four% Cognition Overall Cognitive Status: Intact Arousal/Alertness: Appropriate responses to stimuli Attention: Addressed, no concerns noted Orientation: Oriented X4 Following Commands: Follows all commands and directions without difficulty Safety / Judgment: Addressed, no concerns noted Neuro/Integumentary Screen: Neuro Screen: Functional muscle strength except in left ankle where Cam boot was placed General ROM / Strength Screening ROM - Upper Extremity Screen: Addressed, no concerns noted ROM - Lower Extremity Screen: Impaired left(Foot in Cam boot) Strength - Upper Extremity Screen: Addressed, no concerns noted Strength - Lower Extremity Screen: Impaired left(Foot in Cam boot) Bed Mobility - Supine to Sit # of Assistants: 1 Level of Assistance: Modified Independent, Supervision/Set-up Device: Bed rail Comments: Patient able to get in and out of bed with use of bed rail Transfer - Sit to Stand # of Assistants: 1 Method: Stand pivot Device: Front wheeled walker Level of Assistance: Supervision/Set-up, Minimal assistance Comments: Assist with lines, cues for touchdown weight-bearing Balance Static Sitting-Balance: Good (Maintains balance without support) Dynamic Sitting-Balance: Good (Maintains balance without support) Static Standing-Balance: Good (Maintains balance without support) Dynamic Standing-Balance: Fair (Maintains balance with handheld assistance) Balance Comments: Patient does well but needs assistive device for gait for weight-bearing and pain in Cam boot Gait Assessment # of Assistants: 1 Level of Assistance: Supervision/Set-up, Minimal assistance Device: Front wheeled walker Distance (m): 33 m Surface: Level, tile Cuing: Verbal, Tactile Quality: Antalgic, Step to Assessment of Gait: Patient showed a step to gait believe she was putting more than touchdown weight-bearing to her Cam boot on the left, patient was safe with mobility and stable with gait Training/Intervention: Remind patient of weight-bearing status, tomorrow she will be full weight-bearing and can attempt a foot over foot gait Response: Attempt to follow through Stability: Good Stairs Level of Assistance: Did not occur Activity Tolerance Endurance: Tolerates less than 10 min exercise, no significant change in vital signs Sitting Tolerance: Good Standing Tolerance: Less than 10 minutes with front wheeled walker and Cam boot on the left foot The patient/family were educated on safe transfer techniques with functional mobility/activity. and Touchdown weight-bearing on the left The following coordination of care occurred today: The AVS was initiated Patient was left in bed at end of session with call light in reach, all needs met and questions answered. Contact monitoring: PPE used during therapy: Therapist was wearing the following PPE throughout entire session: surgicalmask and eye protection Patient was wearing a mask during therapy session: no Family member/caregiver present was wearing a mask: no Outcome Measures AM-PAC Basic Mobility (V.2) How much help from another person do you currently need???If the patienthasn't done an activity recently, how much help from another person do you think he/she would need if he/she tried? 1. Turning from your back to your side while in a flat bed without using bedrails?: None 2. Moving from lying on your back to sitting on the side of a flat bed without using bedrails?: None 3. Moving to and from a bed to a chair (including a wheelchair)?: A Little 4. Standing up from a chair using your arms (e.g., wheelchair, or bedside chair)?: A Little 5. To walk in hospital room?: A Little 6. Climbing 3-5 steps with a railing?: A Lot AM-PAC Basic Mobility (V.2) Raw Score: 19 AM-[facility] Basic Mobility (V.2) Standardized Score: 42.48 Interpretation: Clinicians answer the -[facility] Inpatient Short Form based on observed patient activityand/or clinical judgement (ie. patient can be scored without physically performing each activity) According to scoring guidelines: Those going to home had an average score of 20.1 Those going home with home care had an average score of 17.9 Those going to SNF had an average score of 14 Those going to IRF had an average score of 13.6 Those going to a LTAC had an average score of 11.5 Assessment Barriers to Discharge: Inaccessible home environment(Attempt stairs 02/11/2020) Discharge Recommendation: Intermittent supervision Equipment Recommended PT: Walker Equipment Vendor PT: Would suggest front wheeled walker or 4 wheeled walker for home use, would have to assist getting into the home From a physical therapy perspective, the level of care above has been recommended for Ms. Mcmullen after hospital discharge. This level of care is based on her functional abilities during today's session. This may change throughout the hospital course and will be updated as appropriate. Clinical Impression of today's session: patient is a 54 year female with chronic osteomyelitis in the right mandible she had a resection and repair on 02/07/2020, using her left fibula. Currently, patient presents with impairments including pain in the left ankle and right face resulting in the following functional deficits: Decreased comfort level and mobility. Would suggest intermittent supervision at home. Patient also need front wheeled walker. Rehab potential: Ms. Mcmullen has Good potential to achieve established physical therapy goals within the time frame outlined below. Tiered PT Evaluation Codes: Personal Factors: None Comorbidities: Endometrial cancer, alcohol abuse, osteomyelitis in the right mandible Examination elements: 3 Clinical Presentation: Evolving Clinical Decision Making: Moderate: 1-2 complicating factors, 3 eval elements, evolving clinical presentation Functional Goals: PT Inpatient Goals PT Goal #1: Modified independent with gait using a front wheeled walker and Cam boot on the left foot x 30 m, to return home safely PT Goal #2: Min assist up 8 steps with Cam boot on the left using 1 rail and 1 hand-held assist and/or cane to return home safe PT Goal #3: Independent bed mobility without hospital bed features and or using walker has a bed rail to return home safely Progress: Progressing toward goals Plan Patient agrees with the plan of care and goals. Treatment Plan: Plan: Plan of care initiated PT Frequency: 5x/week PT Duration: Until goals are met or patient is discharged from the hospital Requires Inpatient Follow-Up: Yes PT - Next Inpatient Appointment: 02/11/20 Plan Comments: Practice ambulation with full weight-bearing on the left lower extremity, practice stairs x8 with 1 rail Treatment interventions may include: Therapeutic exercise, Therapeutic functional activity, Neuromuscular re- education, Gait training Billing: Time Spent with Patient PT Evaluation (min): 9 min Therapeutic Activity (min): 10 min Total Timed Units (min): 10 min Total Treatment Time (min): 19 min Allie Gentile P.T. Daina Mathis, O.T. - 02/09/2020 11:30 AM CDT Occupational Therapy [facility] Inpatient Evaluation/Treatment SUBJECTIVE Patient's Name: Paola Mcmullen Referring/Attending Provider: Issac Woodward M.D. Medical Diagnosis: Encounter For Screening For Other Viral Diseases (COVID-19) [Z11.59] Osteomyelitis Mandible [M27.2] Reason for Referral: Occupational Therapy Evaluation and Treatment Occupational Therapy evaluation and treatment Onset Date: 02/07/20 Payor: [employer] / Plan: [employer] CHOICE POS II / Product Type: POS / PERTINENT MEDICAL / SURGICAL HISTORY: Patient Active Problem List Diagnosis ??? Osteomyelitis Mandible Chronic ??? Obstructive Sleep Apnea Adult ??? Hypertension Essential Primary ??? Osteomyelitis Mandible ??? Alcohol Use Unspecified With Unspecified Alcohol Induced Disorder (HCC) ??? Encounter For Screening For Other Viral Diseases (COVID-19) Past Surgical History: Procedure Laterality Date ??? BIOPSY OF THE MANDIBLE Right 12/14/2018 Procedure: Biopsy and Bone Culture Right Mandible.; Surgeon: Issac Woodward M.D., D.D.S.; Location: [facility] ??? EXPLORATION INCISION Right 12/14/2018 Procedure: EXPLORATION Right Posterior Mandible.; Surgeon: Issac Woodward M.D., D.D.S.; Location: [facility] ??? OTHER CONVERTED SHX (SEE COMMENT) N/A 12/20/2006 >Laparotomy. DEANA. History of Present Illness:Paola Mcmullen is a 54 y.o. 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 Occupational Profile: Prior Function / Occupational Profile Level of O'Brien: Independent with ADLs and functional transfers Lives With: Spouse Receives Help From: Family ADL Assistance: Independent Homemaking Assistance: Independent Home Living Type of Home: House Home Layout: Two level, Able to Live on Main level with bedroom/bathroom Home Layout Comments: Does not need to access down stairs. Home Access: Stairs to enter with rails Entrance Stairs: Rails: Both(but too far apart to utilize both at the same time.) Entrance Stairs: Number of Steps: 4-6 Bathroom Shower/Tub: Tub/shower unit Bathroom Toilet: Standard Bathroom Accessibility: Yes How Accessible: Accessible via walker Home Living Comments: Client reports her home is an open environment and she won't have any issue using the walker. Home Equipment Bathroom Equipment: Grab bars in shower(Has a shower chair available if she were to need one.) Patient/Caregiver Goals: to get home Patient Comments: client agreeable to session, wanting to get to the chair. She reports pain at a level of 1/10 described as achy. Activity Orders (From admission, onward) Start Ordered 02/11/20 0000 Activity: As Tolerated (For Fibular Free Flap Activity Progression) Until discontinued Comments: May begin ambulating weight bearing as tolerated with CAM boot Question: Activity Level: Answer: As Tolerated 02/08/20 0732 02/09/20 0731 Activity: As Tolerated (For Fibular Free Flap Activity Progression) Until discontinued Comments: Toe touch weight bearing with CAM boot on Question: Activity Level: Answer: As Tolerated 02/08/20 0732 02/08/20 1045 Position head of bed Until discontinued Question Answer Comment Bed position: Elevate HOB Elevate HOB: 30 degrees 02/08/20 1044 02/08/20 1045 Aspiration precautions Continuous 02/08/20 1044 02/07/20 1814 Position head of bed Until discontinued Question Answer Comment Bed position: Elevate HOB Elevate HOB: 30 degrees 02/07/20 1814 Precautions Weight Bearing Status: 02/08 POD 2: To chair with CAM boot, 02/09 POD 3: Ambulate with TTWB and CAM boot, 02/10 POD 4 and after, FWB as tolerated, CAM boot OBJECTIVE Vitals monitored throughout session; within normal ranges. Balance Static Sitting-Balance: Good (Maintains balance without support) Dynamic Sitting-Balance: Good (Maintains balance without support) Static Standing-Balance: Good (Maintains balance without support) General ROM / Strength Screening ROM - Upper Extremity Screen: Addressed, no concerns noted Strength - Upper Extremity Screen: Addressed, no concerns noted Current ADL/IADL Function Eating: (currently NPO, demonstrates ability to do this activity physically.) Grooming: Supervision or touching assistance(to perform while standing for safety only.) Upper Body Dressing: Setup or clean-up assistance Lower Body Dressing: Supervision or touching assistance Toileting: Supervision or touching assistance Bathing: Partial/moderate assistance Bed Mobility: Supervision or touching assistance Transfers: Supervision or touching assistance Functional Mobility: Supervision or touching assistance ADL Comments: Client was facilated in donning of CAM boot, requiring only minimal assistance. She performed bed mobility to get to eob with supervision and use of bed rails/hob elevated. She transferred to chair with use of walker, contact guard assist and management of lines using fww and ttwb, tonio. She was then left with all immediate needs met and call light within reach. Bed Mobility - Supine to Sit Level of Assistance: Modified Independent Device: Bed rail Transfer - Sit to Stand # of Assistants: 1 Method: Stand pivot Device: Front wheeled walker Level of Assistance: Supervision/Set-up Comments: assist for management of lines, cues for maintaining ttwb. Communication: The patient's nurse was contacted and patient's status was discussed. Patient was left in bedside chair at end of session with call light in reach, all needs met and questions answered. Contact monitoring: PPE used during therapy: Therapist was wearing the following PPE throughout entire session: eye protection, gloves, gown and N95 respirator Patient was wearing a mask during therapy session: no Outcome Measures Current ADL Status: [facility] Inpatient Short Form: Putting on and taking off regular lower body clothing?: A Little Putting on and taking off regular upper body clothing?: A Little Taking care of personal grooming such as brushing teeth?: None Bathing (including washing, rinsing, drying)?: A Little Toileting, which includes using toilet, bedpan, or urinal?: A Little Eating meals?: None Daily Activities Raw Score (max 24): 20 Daily Activities Standardized Score: 42.03 Interpretation: Clinicians answer the [facility] Inpatient Short Form based on observed patient activityand/or clinical judgement (ie. patient can be scored without physically performing each activity) According to scoring guidelines: Those going to home had an average score of 20.1 Those going home with home care had an average score of 17.9 Those going to SNF had an average score of 14 Those going to IRF had an average score of 13.6 Those going to a LTAC had an average score of 11.5 Assessment Discharge Recommendation: Ongoing skilled outpatient therapy recommeded Clinical Impression: Currently, patient presents with impairments including limited ability to weight bear on left lower extremity, decreased endurance, need for oxygen resulting in the following functional deficits: decreased independence with dressing, toileting, bathing, and functional mobility. She demonstrates good use of skills and tools to perform tasks today, needing minimal assistance of this therapy to get to the chair. Based on her mobility at this stage and her ability to follow her weight bearing restrictions safely it appears reasonable that she could return home following her hospitalization if she is able to manage her steps to enter her home. She will continue to benefit from therapy to address her goals as stated. Rehab potential: Ms. Mcmullen has excellent potential to achieve established occupational therapy goals within the time frame outlined below. Tiered OT Evaluation Codes: Comorbidities: Per EMR Occupational Profile and History review: Brief Performance Deficits: 1 - 3 performance deficits Evaluation Complexity: Low Functional Goals: OT Goal #1: Client will demonstrate independence with lower and upper body dressing in order to return to prior level of function and decrease dependence on caregiver. OT Goal #2: Client will perform toileting activity with modified independence in order to return to prior level of function and decrease dependence on caregiver. OT Goal #3: Client will demonstrate safety and modified independence with functional mobility in order to return to prior level of function. Progress: Progressing toward goals Plan Patient agrees with the plan of care and goals. Plan: Plan of care initiated OT Frequency: 3-5x/wk OT Duration: Until goals met or dismissed from hospital. Requires Inpatient Follow-Up: Yes OT - Next Inpatient Appointment: 02/11/20 Plan of care initiated Other OT Comments: Functional mobility, dressing, bathing as appropriate. Treatment interventions may include: Therapeutic exercise, Therapeutic functional activity, Neuromuscular re- education, Self-care/home management Billing: Time Spent with Patient OT Evaluation (min): 16 min Therapeutic Activity (min): 10 min Time Calculation Total Timed Units (min): 10 min Total Treatment Time (min): 26 min Daina Mathis, JOANNA, OTR/L Jacinto Bright M.D., M.S. - 02/08/2020 7:27 AM CDTAssociated Order(s): IP CONSULT TO INFECTIOUS DISEASES INFECTIOUS DISEASE CONSULT NOTE Admit Date: 02/07/2020 LOS: 1 day Infectious Diseases consult (hospital) Referring Provider: Mariah Alvarado, RHONDA, C.N.P., M.S. REASON FOR CONSULT chronic osteomyleitis mandible, s/p resection. Continue IV abx at discharge?. SUBJECTIVE HISTORY OF PRESENT ILLNESS Ms. Paola Mcmullen is a 54 y.o. female admitted 02/07/2020 with medical comorbidities including endometrial carcinoma (s/p DEANA/BSO), hypothyroidism, alcohol use disorder, hypertension and obstructive sleep apnea who presented with mandibular osteomyelitis. Briefly, the patient was diagnosed with chronic mandibular osteomyelitis in 2018 by outside OMFS. She had patient been struggling with pain in the right mandible thought to be secondary to a right molar dental jacques. She had a maxillofacial CT on 12/13/2018 which revealed imaging findings consistent with chronic osteomyelitis of the right mandible, progressed from prior. She underwent biopsy with exploration and culture on 12/14/2018. Microbiology showed polymicrobial infection with Strep mitis group(not S. Pneumo), Rothia, and Haemophilus haemolyticus. She was treated with IV ertapenem for a sevenweek course and had resolution of symptoms. Unfortunately, several months ago she again began having right mandibular tenderness and erythema. She returned and was seen by OMFS and ID on 01/15/2020. OMFS requested she get 3-4 weeks of antibioticsfollowed by surgical resection. She was started on ertapenem on 01/16/2020 and scheduled for her surgery in January. She was admitted to [facility] on 02/06 and went to the OR. There she had right neck dissection, segmental resection of the right mandible, an endosseous implantation for reconstruction, free flap formation, and tracheostomy. This surgery was uncomplicated and the patient was doing well clinically and was afeb rile and hemodynamically stable. Perioperatively, she was given and remains on cefazolin as well as metronidazole. No intraoperative cultures were sent. OBJECTIVE Vitals: 02/08/20 0200 02/08/20 0300 02/08/20 0359 02/08/20 0407 BP: 138/89 Patient Position: Semi-recumbent Pulse: 93 87 88 Heart Rate: Temp: 36.8 ??C Resp: 16 Height: Weight: SpO2: 94% 97% 96% TempSrc: Axillary Pain Score: 4 Pain Location: Admission Weight: 82.9 kg Current Weight: 82.9 kg PHYSICAL EXAMINATION General: No acute distress. HEENT: Eyes are anicteric and noninjected. Tracheostomy. NG tube sutured to nose. LIZBETH drain to bulb suction with serosanguineous output. Post-surgical facial and neck edema. Skin: No bruises, ecchymosis, petechiae, rashes, or lesions. Heart: Regular rate and rhythm. Lungs: Normal WOB, symmetric chest rise. Abdomen: Soft, nontender. Extremities: Legs are warm/dry without edema. Left lower leg wrapped with drain showing serosanguineous fluid. Psych: A&O x3, appropriate. Communicates via whiteboard. Neuro: No gross focal neurologic deficits appreciated. DIAGNOSTICS I have reviewed diagnostics. Studies of note include: Results from last 7 days Lab Units 02/08/20 0348 WBC x10(9)/L 9.6 HEMOGLOBIN g/dL 11.2* MCV fL 94.4 PLATELETS AUTO x10(9)/L 201 SODIUM mmol/L 141 POTASSIUM mmol/L 4.9 CHLORIDE mmol/L 102 BUN mg/dL 13 CREATININE mg/dL 0.75 Estimated Creatinine Clearance: 109.6 mL/min (by C-G formula based on SCr of 0.75 mg/dL). ANTI-INFECTIVE MEDICATIONS Current: bacitracin zinc, 1 application, BID ceFAZolin, 2 g, Q8H metroNIDAZOLE in NaCl (iso-osm), 500 mg, Q8H Recent: MICROBIOLOGY Microbiology Results (last 10 days) Procedure Component Value - Date/Time SARS Coronavirus-2, PCR Asymptomatic [[id number]] Collected: 02/04/20 1204 Lab Status: Final result Specimen: Varies from Nasopharynx Updated: 02/05/20 0935 SARS Coronavirus-2 Source Swab, Nasopharynx SARS Coronavirus-2, PCR Undetected Comment: SARS-CoV-2 RNA absent. This result does not rule out COVID-19 in the patient, as the sensitivity of the test depends on the timing of the specimen collection and quality of the specimen. Result should be correlated with patient's history and clinical presentation. ----ADDITIONAL INFORMATION---- This test was developed and its performance characteristics determined by [facility] in a manner consistent with CLIA requirements. Independent review by the U.S. Food and Drug Administration is pending. Visit the CDC website: https://www.cdc.gov/coronavirus/ for the most recent guidelines on Coronavirus testing. Fact Sheet for Healthcare Providers: (https://www.[employer]/it-mmfiles/ Provider_Fact_Sheet_for_[facility]_COVID-19.pdf) Fact Sheet for Patients: (https://www.[employer]/it-mmfiles/ Patient_Fact_Sheet_for_COVID-19.pdf) SARS Coronavirus 2 IgG Ab, Serum [[id number]] Collected: 02/04/20 1156 Lab Status: Final result Specimen: Blood, Venous Updated: 02/05/20 1330 SARS-CoV-2 IgG Ab Negative Comment: No IgG antibodies to SARS-CoV-2 detected. Negative results may occur in serum collected too soon following infection, or in immunosuppressed patients. Follow-up testing with a molecular test is recommended in symptomatic patients. This test should not be used to exclude active/recent COVID-19. Testing was performed using the EUROIMMUN Jpxk-TKTE-VtV-2 DELROY (IgG), which has received Emergency Use Authorization (EUA) by the U.S. Food and Drug Administration. Fact sheets for this EUA assay can be found at the following links: Factsheet for healthcare Providers: https://www.[employer].gov/media/695107/download Factsheet for healthcare Patients: https://www.[employer].gov/media/937898/download IMAGING Dx Abdomen Portable Anterior Posterior 1 View Result Date: 02/07/2020 Impression: Enteric tube with tip in the gastric body. ASSESSMENT / PLAN Paola Mcmullen is a 54 y.o. 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 #1 Osteomyelitis Mandible #2 Encounter For Screening For Other Viral Diseases (COVID-19) The patient appears to be doing well postoperatively. Remains afebrile, hemodynamically stable. She had a several week pre-operative course of ertapenem. She is now covered with cefazolin and metronidazole. Unfortunately, no intraoperative cultures were sent, though would likely have low yield given the ertapenem she had been on. Likely causative organisms are same oral monique that was cultured one year ago. We feel she can be dismissed on oral antibiotics for a four week course. Reasonable to continue cefazolin and metronidazole while she is admitted. Will follow the pathology results. Recommend she be discharged on amoxicillin/clavulanate. On an unrelated note: the patient is on carbamazepine. She does not appear to have a seizure disorder. It seems this was started for trigeminal neuralgia. I wonder if this was mistakenly diagnosed prior to the osteomyelitis diagnosis. Given the numerous toxicities and drug-drug interactions of carbamazepine, would recommend that she follow up with her outpatient provider to discuss discontinuation. Will follow for now. RECOMMENDATIONS ?? Continue cefazolin 2 g IV Q8H and metronidazole 500 mg IV Q8H while admitted. ?? Expect to discharge on amoxicillin-clavulanate 875-125 mg BID for four weeks post-op (last dose 03/06). ?? Follow up surgical pathology. This patient has been staffed with Dr. Unger. We will continue to follow. Please page the [facility] 1 [place] [phone] if there are any questions or concerns. Pilo Bright M.D., M.S. 02/08/20 Associated attestation - Martín Unger M.D. - 02/08/2020 4:54 PM CDT I saw and evaluated the patient, participating in the franco portions of the service. I reviewed the resident/fellow???s note. I agree with the resident/fellow???s findings and plan. Patient was seen and examined. Underwent resection of chronic mandibular osteomyelitis with placement of of the fibula graft. Screws were used for fixation. For now continue both metronidazole and cefazolin while in the hospital. Will discuss with the team transitioning to an oral regimen that she could finish his an outpatient. We also would like to understand better whether no there is significant hardware left in place. Thank you for giving us the opportunity to participate in the care of this patient documented in this encounter Nursing Notes Ericka Hitchcock R.N. - 02/13/2020 1:10 PM CDT Shift Goals: Clinical Goals for the Shift: Patient will have adequate understanding of all DC information. Identify possible barriers to meeting goals/advancing plan of care: None End of Shift Summary: All information in AVS was discussed with the patient and . All questions were answered. VSS and PICC removed prior to DC. Scripts at [facility]. Kanu Hernandez R.R.T., LAmaraR.T. - 02/12/2020 8:56 AM CDT Patient had been decannulated upon our arrival. Gauze and tape over stoma, plan for a dressing lateron by ENT, per patient. Perla Duckworth R.N. - 02/11/2020 5:38 AM CDT Shift Goals: Clinical Goals for the Shift: Patent airway throughout shift Identify possible barriers to meeting goals/advancing plan of care: oral surgery, trach coping skills, secretions. End of Shift Summary: goal met. Patient's airway remained patent throughout shift, and O2 sats remained above 92% throughout shift Problem: PAIN - ADULT Goal: PT VERBALIZES/DEMONSTRATES ADEQUATE COMFORT LEVEL OR BASELINE Outcome: Progressing Problem: KNOWLEDGE DEFICIT Goal: Patient/family/caregiver demonstrates understanding of disease process, treatment plan, medications, and discharge instructions Outcome: Progressing Problem: INFECTION - ADULT Goal: Absence of infection during hospitalization Outcome: Progressing Problem: SKIN/TISSUE INTEGRITY Goal: Skin/Tissue integrity maintained or improved Outcome: Progressing Goal: Oral and Nasal mucous membranes remain intact Outcome: Progressing Problem: SAFETY ADULT Goal: Maintain a safe environment Outcome: Progressing Problem: DISCHARGE PLANNING Goal: Patient discharge needs identified Outcome: Progressing Problem: POTENTIAL OR ACTUAL PRESSURE INJURY-ADULT Goal: Manage sensory Perception deficits to maintain and/or improve skin integrity Outcome: Progressing Goal: Maintain optimal skin moisture to ensure or improve skin integrity Outcome: Progressing Goal: Achieve optimal activity and/or mobility to maintain or improve skin integrity Outcome: Progressing Goal: Nutrient intake appropriate for improving, restoring or maintaining skin integrity Outcome: Progressing Goal: Minimize friction and/or shear to maintain or improve skin integrity Outcome: Progressing Problem: Compromised Skin Integrity Goal: Skin/Tissue integrity maintained or improved Outcome: Progressing Goal: Oral and Nasal mucous membranes remain intact Outcome: Progressing Goal: Incisions, wounds, or drain sites healing without S/S of infection Outcome: Progressing Problem: Incontinence and/or Moisture Goal: Skin integrity is maintained or improved Outcome: Progressing Problem: SAFETY ADULT - RISK FOR FALL AND OR FALL INJURY Goal: Patient remains free from fall/fall injury Outcome: Progressing Asher Peck R.R.T., L.R.T. - 02/10/2020 6:01 PM CDT Patient is a 54 y.o. female admitted on 02/07/2020 Alert Information: Plan of Care: Trach assessment completed. Patient is trached with 4.0 Shiley, cuffless. RT is currently on 28% trach collar for humidification. RT replaced the inner cannula. RT will continue to perform trach assessment BID and monitor patient's respiratory status. Emergency supplies are bedside. Principal Problem Osteomyelitis Mandible Oxygen Therapy $Delivery Method: Trach mask Surgical Airway Tracheostomy/cricothyroidotomy new (Active) Placement Date/Time: 02/07/20 (c) 1500 Surgical Airway Type: Tracheostomy/cricothyroidotomy new Brand: Shiley Style: Uncuffed Size (mm): 4 Length: Adult Social History Tobacco Use Smoking Status Current Every Day Smoker ??? Packs/day: 1.00 ??? Years: 35.00 ??? Pack years: 35.00 ??? Types: Cigarettes ??? Start date: 12/14/1984 Smokeless Tobacco Never Used No results for input(s): PO2 ART, PCO2 ART, PH ART in the last 24 hours. Skin integrity checked: No. Electronically signed by: Asher Peck R.R.T., LAmaraR.TAmara 02/10/20 6:03 PM CDT Leonidas Petit R.N. - 02/10/2020 3:55 PM CDT Shift Goals: Clinical Goals for the Shift: Patient will have good airway clearance on my shift. Identify possible barriers to meeting goals/advancing plan of care: none End of Shift Summary: optimal- Patient have been having a good day with trach and good airway clearance. Patient still needs to be suction PRN and capping trials did not go well. Patient was only able to tolerate 5 minutes of capping trial and patient will be willing to try capping again tomorrow. Perla Duckworth R.N. - 02/10/2020 6:40 AM CDT Shift Goals: Clinical Goals for the Shift: Patient airway will remain patent Identify possible barriers to meeting goals/advancing plan of care: coping skills, trach, secretions. End of Shift Summary: Goal met. Patient's airway remained patent throughout shift. RN suctioned and lavaged q4h. Trach collar remained intact at 28% & 5L NC throughout the night. Problem: PAIN - ADULT Goal: PT VERBALIZES/DEMONSTRATES ADEQUATE COMFORT LEVEL OR BASELINE Outcome: Progressing Problem: KNOWLEDGE DEFICIT Goal: Patient/family/caregiver demonstrates understanding of disease process, treatment plan, medications, and discharge instructions Outcome: Progressing Problem: INFECTION - ADULT Goal: Absence of infection during hospitalization Outcome: Progressing Problem: SKIN/TISSUE INTEGRITY Goal: Skin/Tissue integrity maintained or improved Outcome: Progressing Goal: Oral and Nasal mucous membranes remain intact Outcome: Progressing Problem: SAFETY ADULT Goal: Maintain a safe environment Outcome: Progressing Problem: DISCHARGE PLANNING Goal: Patient discharge needs identified Outcome: Progressing Problem: POTENTIAL OR ACTUAL PRESSURE INJURY-ADULT Goal: Manage sensory Perception deficits to maintain and/or improve skin integrity Outcome: Progressing Goal: Maintain optimal skin moisture to ensure or improve skin integrity Outcome: Progressing Goal: Achieve optimal activity and/or mobility to maintain or improve skin integrity Outcome: Progressing Goal: Nutrient intake appropriate for improving, restoring or maintaining skin integrity Outcome: Progressing Goal: Minimize friction and/or shear to maintain or improve skin integrity Outcome: Progressing Problem: Compromised Skin Integrity Goal: Skin/Tissue integrity maintained or improved Outcome: Progressing Goal: Oral and Nasal mucous membranes remain intact Outcome: Progressing Goal: Incisions, wounds, or drain sites healing without S/S of infection Outcome: Progressing Problem: Incontinence and/or Moisture Goal: Skin integrity is maintained or improved Outcome: Progressing Problem: SAFETY ADULT - RISK FOR FALL AND OR FALL INJURY Goal: Patient remains free from fall/fall injury Outcome: Progressing Rosa Franco R.N. - 02/09/2020 5:28 PM CDT Shift Goals: Clinical Goals for the Shift: Patient will maintain a clear away and sit up in chair today. Identify possible barriers to meeting goals/advancing plan of care: Patient has acute pain. End of Shift Summary: Patient was able to maintain adequate pain control, maintain clear away and tolerated sitting in chair with cam boot, walker and assistance of one. BP 127/84 (BP Location: Left arm) Pulse 71 Temp 36.5 ??C (Axillary) Resp 16 Ht 174 cm Wt 82.9 kg SpO2 96% BMI 27.38 kg/m?? Radha Cooper R.N. - 02/09/2020 6:13 AM CDT Shift Goals: Clinical Goals for the Shift: Patient will have adequate pain control and maintain a clear airway. Identify possible barriers to meeting goals/advancing plan of care: none End of Shift Summary: Pain has been fairly well controlled overnight with Tylenol and Oxycodone. A clear airway was maintained all night with suctioning and lavages every four hours and as needed. Lastevening Mrs. Mcmullen had an increased oxygen demand to TC at 40% when saturations dipped into the mid 80s, she has sense been able to wean back to TC @ 28%. Rosa Franco R.N. - 02/08/2020 6:36 PM CDT Shift Goals: Clinical Goals for the Shift: Patient will have adequate pain control Identify possible barriers to meeting goals/advancing plan of care: Patient has acute pain. End of Shift Summary: Patient had adequate pain control throughout shift. Patient had an episode of 84-88 for Oxygen, RN lavaged and suctioned and increased oxygen. Service was notified and rounded on patient. Patient status improved after repositioning. RN will continue to monitor patient status. BP 1 (BP Location: Left arm) Pulse 85 Temp 36.6 ??C (Axillary) Resp 16 Ht 174 cm Wt 82.9 kg SpO2 93% BMI 27.38 kg/m?? Audrey Toney R.N. - 02/07/2020 10:33 PM CDT Shift Goals: Patient will have stable post-op vitals this shift. Identify possible barriers to meeting goals/advancing plan of care: none End of Shift Summary: Patient arrived from PACU this evening. Pain managed w/ oxycodone, dilaudid, and tylenol. Tolerated trach cares & airway suctioning. Sx paged for elevated BP. Not concerned atthis time. Will continue to monitor and report to oncoming nurse. Branden Ford R.RGuanaco, L.R.T. - 02/07/2020 6:07 PM CDT Patient has a 6.0 Shiley with cuff inflated in place. Patient has trach collar set up at bedside. Nursing will place on once done with assessment. Emergency trach supplies at bedside. documented in this encounter OR Notes Op Note - Issac Woodward M.D., D.D.S. - 02/07/2020 8:32 AM CDT PROCEDURE(S) 1. Tracheostomy. 2. Right neck dissection for vascular access. 3. Segmental resection of right mandible. 4. Left myoosseous fibular free flap. 5. Insertion of custom reconstruction plate. 6. Insertion of nasogastric feeding tube. 7. Endosseous implant reconstruction of neomandible. SURGEON(S) PRIMARY SURGEON: Issac Woodward M.D., D.D.S. CO-PRIMARY SURGEON: Huseyin Bolton M.D., D.M.Ruma. RESIDENTS ASSISTING: Saw Azevedo D.D.S. Rick Barrios D.D.S. ANESTHESIA TYPE General anesthesia. PRE-OPERATIVE DIAGNOSIS Progressive right mandibular osteomyelitis. POST-OPERATIVE DIAGNOSIS Progressive right mandibular osteomyelitis. INDICATION: Treatment. COMPLICATIONS None. DESCRIPTION OF PROCEDURE The patient was brought to operating room 312 at [facility] and was placed on the surgicaltable in a supine position. The patient underwent uneventful induction of general anesthesia and wassuccessfully oral endotracheally intubated. The tube was secured in the usual fashion. The patient then underwent placement of a left radial arterial line as well as additional intravenous access. The head of bed was then rotated 180 degrees away from the anesthesia ventilator unit, and the patient was then prepped and draped in the standard sterile fashion. A pause was undertaken to verify the patient's identity and the nature of the procedure to be performed. The procedure commenced with concomitant performance of the left myoosseous fibular free flap elevation as well as the tracheostomy. Please see Dr. Bolton's notes for details of the fibular free flap elevation, preplating, and endosseous implant placement. Relative to the tracheostomy, a transverse incision was created midway between the sternal notch and the cricoid cartilage. The skin incision was deepened through the subcutaneous fat to the level of the fascia surrounding the strap musculature. Thestrap muscles were divided in the midline raphe which exposed the inferior aspect of the thyroid isthmus which was divided in a hemostatic fashion. The pretracheal fascia was cleared off the anterior wa ll of the trachea. Our Anesthesia colleagues were alerted of our plans to enter the airway. FiO2 wasreduced. The endotracheal tube cuff was taken down, and a 15 blade was utilized to create an incision between tracheal rings 2 and 3. A Alysha flap was then fashioned and secured to the anterior skin ofthe neck. The existing endotracheal tube was then retracted, and this was replaced with a 6.0 wire spiral cuffed tube which was then inserted and reconnected to the anesthesia ventilator circuit. End-tidal CO2 was reconfirmed. This tube was secured to the anterior wall of the chest with 0 silk suture. Attention was then turned to performance of the right neck access in order to identify blood vesselsfor microvascular anastomosis as well as transcervical access to the mandible. The existing skin crease greater than 2 fingerbreadths below the inferior border of the mandible was selected. This was the most prominent skin crease in the neck. The skin incision was then created with needle-tip electrocautery and deepened through the skin and subcutaneous fat to the level of the platysma which was thensharply divided. A subplatysmal flap was reflected superiorly and a sparing subplatysmal flap reflected inferiorly to accommodate future drain placement. The marginal mandibular branch of the facial nerve was easily identified coursing through the superficial layer of the deep cervical fascia upon elevation of the subplatysmal skin flap. A cuff of fascia roughly 1 cm below the visual extent of the nerve was taken, and this was elevated superiorly as a fascial flap carrying with it the multiple branches of the marginal mandibular nerve. This was secured superiorly, and the underlying common facial vein as well as the facial artery were both sequentially skeletonized and dissected for future anastomotic targets. The external jugular vein was also further skeletonized. The greater auricular nerve was preserved and in continuity in situ. Following complete cleaning of the recipient vessels, attention was then turned to performance of mandibular resection. A subperiosteal plane of dissection was then created deep to the previously elevated fascial flap protecting the marginal mandibular branch of the facial nerve. This was carried along the inferior border of the mandible from the angle to the submental region. The facial artery and facial vein were both clipped and divided distally to facilitate access to the mandible. Subperiosteal dissection was then performed laterally up the ascending ramus and along the body and surfaces of the mandible. Once the maximal extent of lateral subperiosteal dissection was performed, we then turned our attention to tr ansoral approach in order to reflect the intraoral mucosal flap. A 15 blade was utilized to create asulcular incision around the right douglas teeth and right mandible. Mucoperiosteal flaps were then reflected both buccally and lingually. On the lingual aspect, there were multiple bulbous elia which were carefully dissected so as not to rent the mucosal tissues. Once completed, we were able to adapt the mandibular cutting guide to the mandible and secure it in place with 2 bicortical locking screws.The mandible was then osteotomized with protection of the lingual tissues with a channel retractor. Once the indexing cut was made, the cutting guide was removed, and the remainder of the cut was finalized under direct visualization. A Molt 4 curette was then utilized to finalize the osteotomy at the level of the alveolus, and the inferior alveolar neurovascular bundle was rendered hemostatic with needle-tip electrocautery. We were then able to distract the mandible through the neck laterally which facilitated access to its lingual margins. Subperiosteal dissection was then carried along the lingual aspect of the mandible, and this was also carried superiorly, disinserting the medial pterygoid musculature. The inferior alveolar neurovascular bundle was clipped and divided. We then proceeded to disinsert the temporalis from the coronoid process. Superiorly the retromandibular vein was running in close proximity to the mandibular condyle, and multiple branches from this vein had to be controlled with clips and suture ligation. The condyle was then freed of muscular attachments, and the entire mandibular specimen was extirpated in its entirety. The surgical field was then rendered hemostatic with bipolar electrocautery. The patient was then placed into intermaxillary fixation with an embrasure wire on the left posterior dentition. Multiple IMF screws were also utilized in order to place the patient into solid intermaxillary fixation. At this point in time, we were ready for transfer of the fibular free flap to the head and neck field. It had already been harvested, preplated, and restored with implants while still at the leg field by Dr. Bolton. Upon receipt of the fibular free flap, we then inserted the proximal segment into the glenoid fossa and adapted the plate anteriorly. The fit was found to be excellent. There were no modifications required. We then proceeded to fixate the custom reconstruction plate to the s ymphyseal region of the mandible with a total of four 13-mm bicortical locking screws. The patient was then released from intermaxillary fixation, and the occlusion was found to be excellent. It was repeatable and consistent with the preoperative occlusal relationship. The transoral releasing incision was then closed with 3-0 Vicryl pop-off sutures in a horizontal mattress fashion. Primary closure was able to be easily obtained. This was completed after removal of a residual bulbous torus on the lingual aspect of the mandible as well as removal of the remaining root tip from the previously sectioned tooth #28. The microscope was then brought into the head and neck field, and under microscopic magnification wecleaned the peroneal artery as well as the facial artery of adventitia. These vessels were then anastomosed utilizing 9-0 nylon suture in an interrupted fashion. Following completion of the anastomosis, a single Acland clamp was allowed to remain on the facial artery while venous coupling was performed. There was a confluent branch draining both of the comitans that was larger in caliber. This vesselwas then coupled to the common facial vein with a 4-mm adolescent coordinator. This adolescent coordinator was closed. We then released the single Acland clamp on the facial artery to assess flow. There was excellent forward robustpulsatility within the pedicle. Initially, the venous outflow was slightly sluggish. However, upon further optimization of the vessel geometry, we were able to obtain a good visual venous outflow from the noncoupled, nondominant comitans. After assessing the venous outflow for approximately 5 minutes,we then elected to couple the nondominant comitans to the external jugular vein as this was demonstrating good outflow relative to the previously coupled confluent branch of the comitans system. This was completed with a 3.5- mm adolescent coordinator. The adolescent coordinator was closed. Multiple strip tests performed. A [employer] lantable Doppler was adapted to the peroneal artery distal to the anastomosis. Upon activation, thisreturned a biphasic signal. Initially, the signal was noted to be slightly weak and with background signal distortion consistent with a low-powered doppler box. Upon replacement of the Doppler box, thesignal reached a normal level of audible intensity and was devoid of the background interference signal. The vessels were then secured into more optimum geometry with a 3-0 Vicryl pop-off suture through the branches of the soleus infrastructure tech. Upon completing this, the venous outflow was significantly improved. We then proceeded to place a 15-Turkish round channel drain in the deepest level of the neck,and this was secured inferiorly to prevent drain migration towards the anastomotic vessels. The neckwas then copiously irrigated. It was closed in the typical fashion utilizing 3-0 Vicryl pop-off sutures for reapproximation of platysma and running closure of the skin with a 5-0 fast-absorbing gut. A n asogastric feeding tube was then placed and secured transseptally through the membranous septum of the nose. The Anesthesia Team was alerted of our plans to manipulate the airway. The existing endotracheal tube cuff was taken down, and this was replaced for a 6.0 cuffed Shiley. The circuit was reconnected. End- tidal CO2 was confirmed. The patient was then successfully woken while still in the operating room setting. She was then transferred to PACU in a stable condition. She tolerated the procedure and the anesthetic without any complications. SPECIMENS Right mandible. DRAINS 1. 15-Turkish round channel drain right neck. 2. 15-Turkish round channel drain left leg. ESTIMATED BLOOD LOSS 200 cc. TPR: 2 Issac Woodward M.D., D.D.S. CT CT Job ID: [id number] Op Note - Huseyin Bolton M.D., D.MCece. - 02/07/2020 8:32 AM CDT PROCEDURE(S) 1. Tracheostomy. 2. Right segmental mandibulectomy. 3. Right selective neck dissection for vascular access. 4. Left deshawn-osseous fibular free flap. 5. Insertion of custom reconstruction plate. 6. Contouring osteotomies of fibular free flap. 7. Insertion of nasogastric feeding tube. 8. Insertion of custom reconstruction plate. 9. Endosseous implant reconstruction of aden-mandible. SURGEON(S) Dr. Huseyin Bolton. CO-PRIMARY SURGEON: Dr. Issac Woodward. RESIDENTS ASSISTING: Saw Azevedo DDS. Rick Barrios DDS. ANESTHESIA TYPE General anesthesia. PRE-OPERATIVE DIAGNOSIS 1. Progressive right mandibular osteomyelitis. POST-OPERATIVE DIAGNOSIS 1. Progressive right mandibular osteomyelitis. DESCRIPTION OF PROCEDURE On the day listed above, Mrs. Mcmullen was identified. Confirmation of procedure to be performed wasobtained. Mrs. Mcmullen was transported to the operating room, where she was transferred onto the operating room table and kept in supine position. Upper and lower extremities were secured to her sides, and all pressure points were relieved. Mrs. Mcmullen was successfully orotracheally intubated. The tube was secured in the usual fashion. The head and neck as well as the left lower extremity were prepped and draped in normal sterile fashion in anticipation of the procedures to be performed. The head and neck procedure as well as the harvesting of the left deshawn-osseous fibular free flap wereperformed in simultaneous fashion. The left leg was exsanguinated with an Esmarch. The tourniquet was inflated to 350 mmHg. A lateral leg skin incision was made and carried down to the level of the fascia overlying the lateral compartment musculature. The fascia was divided with a 15 blade and posterior dissection towards the posterior crural septum was performed. Two septocutaneous perforators were identified and marked and measured. Sharp dissection of the lateral musculature was performed. The ant erior crural septum was exposed and divided with a 15 blade. The anterior compartment was bluntly dissected utilizing an [facility] retractor and the Kittner. The interosseous membrane was divided with a 15 blade. Posterior dissection was performed to separate the soleus muscle from the posterior aspect of the fibula. This allowed identification of the pedicle on the posterior aspect. Proximal and distal subperiosteal dissection was carried out. A sagittal saw was utilized to perform the osteotomies.Lateral retraction of the fibula was performed. The vascular pedicle was identified and divided on the distal aspect with a combination of Ligaclips and silk tie sutures. From distal to proximal, the dissection to the pedicle was performed with the LigaSure. The tibialis posterior muscle was divided in sharp fashion. The dissection of the pedicle was continued to the level of the confluence of the tibioperoneal trunk. The flexor hallucis longus muscle was divided with the LigaSure. Dissection of thepedicle on the proximal aspect was performed and the peroneal artery and associated venae comitanteswere . The tourniquet was let down at this point. The patient-specific cutting guide was secured on the lateral aspect after performing the subperiosteal dissection at the osteotomy site. The c ontouring osteotomies were performed with the sagittal saw. The inset was performed to the reconstruction plate utilizing the patient-specific insertion tray. While maintaining the pedicle in continuity, endosseous implant reconstruction of the aden-mandible was performed. Twist drills were utilized in sequential fashion to perform the osteotomies. A total of three 3.3 x 11.5 Michael III TiUnite implantswere placed with torque values of 40 N-cm. Cover screws were placed. After completion of the head and neck procedures, the vascular pedicle was divided and the transfer of the reconstruction was performed to the head and neck region. The inset was performed. The leg was irrigated and hemostasis was confirmed. Closure of the leg was performed after placementof a 15-Turkish round channel drain on the deep compartment. The lateral musculature was approximatedwith interrupted Vicryl sutures. The skin was closed in a layered fashion. The deep layer was closedwith Vicryl sutures. The skin was closed with 5-0 fast-absorbing gut suture. In the head and neck region, after composite reconstruction was completed and primary closure of theintraoral wound, the microvascular anastomosis was performed. This is further delineated in Dr. Woodward's portion of the operative report. Closure of the neck wound was performed as well as exchange of the tracheostomy tube. SPECIMENS Right mandible. DRAINS 1. A 15-Turkish round channel drain, right neck. 2. A 15-Turkish round channel drain, left leg. ESTIMATED BLOOD LOSS 200 mL. TPR: 2 Huseyin Bolton M.D., ShadMCece. CT CT Job ID: [id number] Brief Op Note - Rick Barrios D.D.S. - 02/07/2020 8:32 AM CDT BRIEF OP NOTE Procedure(s) (LRB): SEGMENTAL RESECTION MANDIBLE. (Right) NASOGASTRIC FEEDING TUBE PLACEMENT. TRACHEOSTOMY. VASCULARIZED FIBULA DESHAWN-OSSEOUSCUTANEOUS GRAFT TO MANDIBLE. (Left) Custom plate to right mandible. (Right) Surgeon(s) and Role: Panel 1: * Issac Woodward M.D., D.D.S. - Primary * Rick Barrios D.D.S. Panel 2: * Huseyin Bolton M.D., Sarah - Primary * Saw Azevedo D.D.S. Anesthesia Type General Pre-operative Diagnosis Encounter For Screening For Other Viral Diseases (COVID-19),Osteomyelitis Mandible Post-operative Diagnosis Encounter For Screening For Other Viral Diseases (COVID-19),Osteomyelitis Mandible Findings As expected. Complications None Specimens ID Type Source Tests Collected by Time A : Right mandible Bone Mandible [facility] Issac Woodward M.D., D.D.S. 02/07/2020 [id number] Drains GI Tubes (Adults) Nasogastric Nare;Right (Active) 02/07/20 1445 Nare;Right Placed by External Staff?: Placed by: Dr. Barrios GI Tube Type: Nasogastric GI Tube Size: 12 Fr Length (cm): Connector Type: Removal Reason: Closed/Suction Drain Left Leg Bulb 15 Fr. (Active) 02/07/20 1234 Leg Placed by External Staff?: Placed by: Dr. Barrios Tube Number: Orientation: Left Drain Tube Type: Bulb Size (Fr): 15 Fr. Size (mm): Size (In): Drain [place] Size (mL): 100 mL Number of Sutures Placed: Removal Reason: Closed/Suction Drain Left Neck Bulb 15 Fr. (Active) 02/07/20 1442 Neck Placed by External Staff?: Placed by: Dr. Barrios Tube Number: Orientation: Left Drain Tube Type: Bulb Size (Fr): 15 Fr. Size (mm): Size (In): Drain [place] Size (mL): 100 mL Number of Sutures Placed: Removal Reason: Indwelling Urinary Catheter Temperature probe 16 Fr. (Active) 02/07/20 0745 Placed by: Mendy Coats RN Placed by External Staff?: Hand Hygiene Performed Prior to Insertion: Yes Sterile technique followed?: Yes Catheter Type: Temperature probe Tube Size (Fr.): 16 Fr. Catheter Balloon Size: 10 mL Urine Returned: Yes Removal Reason: Site Assessment Skin intact;Clean 02/07/20 0750 Collection Container Standard drainage bag 02/07/20 0750 Securement Method Securing device 02/07/20 0750 Estimated Blood Loss 200 mL Implants Implant Name Type Inv. Item Serial No. Chain Saw Driver Lot No. LRB No. Used Action WAX BN NBLBL 2.5GR - [id number] Hardware e.g. pins/screws/rods WAX BN NBLBL 2.5GR [employer] 1 Implanted WAX BN NBLBL 2.5GR - [id number] Hardware e.g. pins/screws/rods WAX BN NBLBL 2.5GR [employer] 1 Implanted CLP APR LGS INTNL SM 9.0 - [id number] Hardware e.g. pins/screws/rods CLP APR LGS INTNL SM 9.0 [employer] 1 Implanted CLP APR LGS INTNL SM 9.0 - [id number] Hardware e.g. pins/screws/rods CLP APR LGS INTNL SM 9.0 [employer] 1 Implanted CLP APR LGS INTNL SM 9.0 - [id number] Hardware e.g. pins/screws/rods CLP APR LGS INTNL SM 9.0 [employer] 1 Implanted CLP APR LGC INTNL MD SHRT 9.75 - [id number] Hardware e.g. pins/screws/rods CLP APR LGC INTNL MD SHRT 9.75 [employer] 1 Implanted CLP APR LGC INTNL HI SHRT 9.75 - [id number] Hardware e.g. pins/screws/rods CLP APR LGC INTNL HI SHRT 9.75 [employer] 1 Implanted CLP APR LGC INTNL HI SHRT 9.75 - [id number] Hardware e.g. pins/screws/rods CLP APR LGC INTNL HI SHRT 9.75 [employer] 1 Implanted CLP GEM TI MCR - [id number] Hardware e.g. pins/screws/rods CLP GEM TI MCR Synovis 1 Implanted CLP GEM TI MCR - [id number] Hardware e.g. pins/screws/rods CLP GEM TI MCR Synovis 1 Implanted CLP GEM TI MCR - [id number] Hardware e.g. pins/screws/rods CLP GEM TI MCR Synovis 1 Implanted CLP GEM TI MCR - [id number] Hardware e.g. pins/screws/rods CLP GEM TI MCR Synovis 1 Implanted CLP GEM TI MCR - [id number] Hardware e.g. pins/screws/rods CLP GEM TI MCR Synovis 1 Implanted CLP GEM TI MCR - [id number] Hardware e.g. pins/screws/rods CLP GEM TI MCR Synovis 1 Implanted CLP GEM TI MCR - [id number] Hardware e.g. pins/screws/rods CLP GEM TI MCR Synovis 1 Implanted CLP GEM TI MCR - [id number] Hardware e.g. pins/screws/rods CLP GEM TI MCR Synovis 1 Implanted CLP GEM TI MCR - [id number] Hardware e.g. pins/screws/rods CLP GEM TI MCR Synovis 1 Implanted CLP GEM TI MCR - [id number] Hardware e.g. pins/screws/rods CLP GEM TI MCR Synovis 1 Implanted IPS Implant mandible Misc Prosthesis N/A MITCHELS Nelson Right 1 Implanted CLP APR LGS INTNL SM 9.0 - [id number] Hardware e.g. pins/screws/rods CLP APR LGS INTNL SM 9.0 Ethicon Right 1 Implanted CLP APR LGS INTNL SM 9.0 - [id number] Hardware e.g. pins/screws/rods CLP APR LGS INTNL SM 9.0 Ethicon Right 1 Implanted CLP APR LGS INTNL SM 9.0 - [id number] Hardware e.g. pins/screws/rods CLP APR LGS INTNL SM 9.0 Ethicon Right 1 Implanted CLP GEM TI MCR - SN/A - [id number] Hardware e.g. pins/screws/rods CLP GEM TI MCR N/A Synovis [id number] 1 Implanted CLP GEM TI MCR - SN/A - [id number] Hardware e.g. pins/screws/rods CLP GEM TI MCR N/A Synovis [id number] 1 Implanted CLP GEM TI MCR - SN/A - [id number] Hardware e.g. pins/screws/rods CLP GEM TI MCR N/A Synovis [id number] 1 Implanted CLP APR LGS INTNL SM 9.0 - [id number] Hardware e.g. pins/screws/rods CLP APR LGS INTNL SM 9.0 Ethicon 1 Implanted SCRW BRNMK UNDERCUTTER OPERATOR 3.3X11.5 - [id number] Hardware e.g. pins/screws/rods SCRW BRNMK UNDERCUTTER OPERATOR 3.3X11.5 [employer] [id number] 1 Implanted SCRW BRNMK UNDERCUTTER OPERATOR 3.3X11.5 - [id number] Hardware e.g. pins/screws/rods SCRW BRNMK UNDERCUTTER OPERATOR 3.3X11.5 [employer] [id number] 1 Implanted SCRW BRNMK UNDERCUTTER OPERATOR 3.3X11.5 - [id number] Hardware e.g. pins/screws/rods SCRW BRNMK UNDERCUTTER OPERATOR 3.3X11.5 [facility] [id number] 1 Implanted DRL BIT MANDIB SS 2 SCRW 1.5X5 - [id number] Hardware e.g. pins/screws/rods DRL BIT MANDIB SS 2 SCRW 1.5X5 KLS Nelson 2 Implanted SCRW MANDIB LCK MAXD 2.0X9 - [id number] Hardware e.g. pins/screws/rods SCRW MANDIB LCK MAXD 2.0X9KLS Nelson 6 Implanted SCRW LVL LCK MAXDRIVE 2.0X13 - [id number] Hardware e.g. pins/screws/rods SCRW LVL LCK MAXDRIVE 2.0X13 KLS Nelson [address]CRW MXD M[address] TI 2X13 - [id number] Hardware e.g. pins/screws/rods SCRW MXD MANDIB ST TI [id number] Nelson 4 Implanted DRL BIT MANDIB SS 2 SCRW 1.5X5 - [id number] Hardware e.g. pins/screws/rods DRL BIT MANDIB SS 2 SCRW 1.5X5 KLS Nelson 1 Implanted CPLR GEM VASC ANSTM 4 - [id number] Hardware e.g. pins/screws/rods CPLR GEM VASC ANSTM 4 Synovis [id number] Right 1 Implanted CPLR GEM VASC ANSTM 3 - [id number] Hardware e.g. pins/screws/rods CPLR GEM VASC ANSTM 3 Synovis [id number] Right 1 Implanted Rick Barrios D.D.S. documented in this encounter Miscellaneous Notes Hospital Course - Mariah Alvarado, RHONDA, C.N.P., M.S. - 02/08/2020 12:52 PM CDT Paola Mcmullen was routinely admitted in the morning to the service of Dr. Bolton and Dr. Woodward. She was brought to the operating room where general anesthesia was provided via endotracheal intubation and then converted to planned tracheostomy. She then underwent segmental resection right mandible, right neck dissection for vascular access, left fibular free flap, and endosseous implant reconstruction mandible. Paola Mcmullen tolerated the procedure and anesthesia well, was extubated, and then brought to the post-anesthesia care unit in stable condition. Following adequate recovery from anesthesia, she was taken to general nursing floor in [facility] where the hospitalization continued uneventfully. She was discharged tolerating tube feedings with pain well controlled on oral medication, ambulatingindependently, and voiding spontaneously. Paola Mcmullen is returning home and received appropriate instruction and materials for ongoingcare. documented in this encounter Plan of Treatment Upcoming Encounters Date Type Specialty Care Team Description 05/12/2022 Appointment Radiology Jamel Terrazas APRN C.N.P., D. N.P. [address] [place] [address] (Vasiliy ac) 05/12/2022 Appointment Oral and Maxillofacial Issac Woodward, Surgery Marlyn, D.D.S. [address] [place] [address] (Vasiliy ac) Scheduled Referrals Name Type Priority Associated Order Schedule Diagnoses Oral and Maxillofacial Outpatient Referral Routine Expected: Surgery Post Op 02/20/2020 (clinic) (Approximate), Expires: 02/11/2023 documented as of this encounter Procedures Procedure Name Priority Date/Time Associated Comments Diagnosis REMOVE CENTRAL OR MIDLINE Routine 02/13/2020 Re sults for CATHETER 10:43 AM CDT this procedure are in the results section. FL SWALLOW FUNCTION WITH VIDEO RAD - Timed 02/12/2020 Results for AND SPEECH OR OT FOR RST (for specific 2:16 PM CDT th is dates/times) procedure are in the results section. CBC WITH DIFFERENTIAL, B Routine 02/12/2020 Res ults for 6:40 AM CDT this procedure are in the results section. BASIC METABOLIC PANEL, S/P Routine 02/12/2020 R esults for 6:40 AM CDT this procedure are in the results section. PHOSPHORUS (INORGANIC), S Routine 02/11/2020 Re sults for 7:12 AM CDT this procedure are in the results section. ADULT OXYGEN THERAPY Routine 02/10/2020 8:01 PM CDT ADULT OXYGEN THERAPY Routine 02/10/2020 8:00 AM CDT CBC WITH DIFFERENTIAL, B Routine 02/10/2020 Res ults for 7:05 AM CDT this procedure are in the results section. PHOSPHORUS (INORGANIC), S Routine 02/10/2020 Re sults for 7:04 AM CDT this procedure are in the results section. MAGNESIUM, S Routine 02/10/2020 Results for 7:04 AM CDT this procedure are in the results section. BASIC METABOLIC PANEL, S/P Routine 02/10/2020 R esults for 7:04 AM CDT this procedure are in the results section. ADULT OXYGEN THERAPY Routine 02/09/2020 8:01 PM CDT TRACHEOSTOMY REPLACEMENT Routine 02/09/2020 Osteomyelitis Re sults for 10:38 AM CDT Mandible this procedure are in the results section. ADULT OXYGEN THERAPY Routine 02/09/2020 8:01 AM CDT AIRWAY CARE Routine 02/09/2020 8:01 AM CDT CBC WITH DIFFERENTIAL, B Routine 02/09/2020 Res ults for 4:09 AM CDT this procedure are in the results section. PHOSPHORUS (INORGANIC), S Routine 02/09/2020 Re sults for 4:09 AM CDT this procedure are in the results section. MAGNESIUM, S Routine 02/09/2020 Results for 4:09 AM CDT this procedure are in the results section. BASIC METABOLIC PANEL, S/P Routine 02/09/2020 R esults for 4:09 AM CDT this procedure are in the results section. ADULT OXYGEN THERAPY Routine 02/08/2020 8:01 PM CDT AIRWAY CARE Routine 02/08/2020 8:01 PM CDT ADULT OXYGEN THERAPY Routine 02/08/2020 8:01 AM CDT AIRWAY CARE Routine 02/08/2020 8:01 AM CDT CBC WITH DIFFERENTIAL, B Routine 02/08/2020 Res ults for 3:48 AM CDT this procedure are in the results section. PHOSPHORUS (INORGANIC), S Routine 02/08/2020 Re sults for 3:48 AM CDT this procedure are in the results section. MAGNESIUM, S Routine 02/08/2020 Results for 3:48 AM CDT this procedure are in the results section. CALCIUM, IONIZED, S/B Routine 02/08/2020 Result s for 3:48 AM CDT this procedure are in the results section. BASIC METABOLIC PANEL, S/P Routine 02/08/2020 R esults for 3:48 AM CDT this procedure are in the results section. AIRWAY CARE Routine 02/08/2020 1:30 AM CDT AIRWAY CARE Routine 02/08/2020 1:30 AM CDT AIRWAY CARE Routine 02/08/2020 1:30 AM CDT ADULT OXYGEN THERAPY Routine 02/07/2020 8:01 PM CDT DX ABDOMEN PORTABLE ANTERIOR RAD - Routine 02/07/2020 Results for POSTERIOR 1 VIEW (most 7:31 PM CDT this inpatients and procedure all are in the outpatients) results section. ADULT OXYGEN THERAPY Routine 02/07/2020 6:14 PM CDT ADULT OXYGEN THERAPY Routine 02/07/2020 6:14 PM CDT ADULT OXYGEN THERAPY Routine 02/07/2020 3:42 PM CDT SURGICAL PATHOLOGY, [facility] LAB Routine 02/07/2020 Encounter For Results for 12:56 PM CDT Screening For this Other Viral procedure Diseases are in the (COVID-19) results Osteomyelitis section. Mandible RECONSTRUCTION MANDIBLE WITH 02/07/2020 Encounter Fo r ENDOSSEOUS IMPLANT 7:12 AM CDT Screening For Other Viral Diseases (COVID-19) Osteomyelitis Mandible NECK DISSECTION 02/07/2020 Encounter For 7:12 AM CDT Screening For Other Viral Diseases (COVID-19) Osteomyelitis Mandible OTHER 02/07/2020 Encounter For 7:12 AM CDT Screening For Other Viral Diseases (COVID-19) Osteomyelitis Mandible VASCULARIZED FIBULA 02/07/2020 Encounter For DESHAWN-OSSEOUSCUTANEOUS GRAFT TO 7:12 AM CDT Screening F or MANDIBLE Other Viral Diseases (COVID-19) Osteomyelitis Mandible TRACHEOSTOMY 02/07/2020 Encounter For 7:12 AM CDT Screening For Other Viral Diseases (COVID-19) Osteomyelitis Mandible ESOPHAGOGASTRODUODENOSCOPY - 02/07/2020 Encounter Fo r NASOGASTRIC/NASOJEJUNAL 7:12 AM CDT Screening For FEEDING TUBE PLACEMENT Other Viral Diseases (COVID-19) Osteomyelitis Mandible SEGMENTAL RESECTION MANDIBLE 02/07/2020 Encounter Fo r 7:12 AM CDT Screening For Other Viral Diseases (COVID-19) Osteomyelitis Mandible documented in this encounter Results Remove PICC (non-tunneled) or Midline Catheter (02/13/2020 10:43 AM CDT) Narrative MMODAL - 02/13/2020 10:43 AM CDT Ricky Concepcion R.N. ? 02/13/2020 10:44 AM Remove PICC (non-tunneled) or Midline Ca theter Date/Time: 02/13/2020 10:43 AM Performed by: Ricky Concepcion R.N. Authorized by: Mariah Alvarado APRN, C .N.PAmara, MAmaraS. Param Baltazar APRNN.Lucille, M.S. PROCEDURE/MINOR BRYAN GICAL ORDERABLES Performing Organization Address City/State/ZIP Code Phon e Number MMODAL MMODAL NA FL Swallow Function with Video and Speech or OT (02/12/2020 2:16 PM CDT) Anatomical Region Laterality Modality Gastro Intestinal, Abdominal RST LOS, Abdominal ARZ N/A Digital Radiography LOS, Abdominal FLA LOS Specimen (Source) Anatomical Collection Method Collection Time Re ceived Time Location / / Volume Laterality 02/12/2020 3:10 PM CDT Impressions 02/12/2020 3:43 PM CDT 1. ??No contrast leak into the surgical bed. 2. ??No aspiration. Please see speech th rita report for further details. Narrative 02/12/2020 3:43 PM CDT EXAM: ??FL SWALLOW FUNCTION WITH VIDEO AND SPEECH OR OT FOR RST COMPARISON: ??None. FINDINGS: ??Video swallow study with stacy er-soluble contrast showed no contrast leakage from the mouth into the surgical bed. Postoperative changes in the mandible. No laryngeal penetration or aspiration w ith thin and pudding consistency barium preparations. NG tube partly seen. Surgical drain in t he neck Procedure Note Florencio Lind M.D. - 02/12/2020Fo rmatting of this note might be different from the original. EXAM: FL SWALLOW FUNCTION WITH VIDEO AND SPEECH OR OT FOR RST COMPARISON: None. FINDINGS: Video swallow study with water -soluble contrast showed no contrast leakage from the mouth into the surgical bed. Postoperative changes in the mandible. No laryngeal penetration or aspiration w ith thin and pudding consistency barium preparations. NG tube partly seen. Surgical drain in t he neck IMPRESSION: 1. No contrast leak into the surgical be d. 2. No aspiration. Please see speech ther apy report for further details. Patria Bright P.A.-C. M.S. IMG FLUOROSCOPY PROCEDURES (ABNORMAL) CBC with Differential, Blood (02/12/2020 6:40 AM CDT) [facility] Method Time Signature Hemoglobin 10.1 (L) 11.6 - 02/12/2020 DTL 15.0 g/dL 7:15 AM CDT Hematocrit 31.6 (L) 35.5 - 02/12/2020 DTL 44.9 % 7:15 AM CDT Erythrocytes 3.27 (L) 3.92 - 02/12/2020 DTL 5.13 7:15 AM CDT x10(12)/L MCV 96.6 78.2 - 02/12/2020 DTL 97.9 fL 7:15 AM CDT RBC Distrib Width 12.3 12.2 - 02/12/2020 DTL 16.1 % 7:15 AM CDT Platelet Count 263 157 - 371 02/12/2020 DTL x10(9)/L 7:15 AM CDT Leukocytes 6.6 3.4 - 9.6 02/12/2020 DTL x10(9)/L 7:15 AM CDT Neutrophils 4.76 1.56 - 02/12/2020 DTL 6.45 7:15 AM CDT x10(9)/L Lymphocytes 1.05 0.95 - 02/12/2020 DTL 3.07 7:15 AM CDT x10(9)/L Monocytes 0.54 0.26 - 02/12/2020 DTL 0.81 7:15 AM CDT x10(9)/L Eosinophils 0.25 0.03 - 02/12/2020 DTL 0.48 7:15 AM CDT x10(9)/L Basophils <0.03 0.01 - 02/12/2020 DTL 0.08 7:15 AM CDT x10(9)/L Specimen Anatomical Collection Method Collection Time Receive d Time (Source) Location / / Volume Laterality Blood (Blood, 02/12/2020 6:40 AM 02/12/20 20 7:01 Venous) CDT AM CDT Anand Bermeo M.D., D.D.S. LAB BLOOD ADD-ON Performing Organization Address City/State/ZIP Code Phon e Number [facility] - [address] [place], [place] [address] [facility] [place] [address] [facility] [address] [facility] (ABNORMAL) Basic Metabolic Panel (02/12/2020 6:40 AM CDT) P athologist Signature Potassium, S 4.1 3.6 - 5.2 02/12/2020 DTL mmol/L 7:51 AM CDT Sodium, S 141 135 - 145 02/12/2020 DTL mmol/L 7:51 AM CDT Chloride, S 102 98 - 107 02/12/2020 DTL mmol/L 7:51 AM CDT Bicarbonate, S 28 22 - 29 02/12/2020 DTL mmol/L 7:51 AM CDT Anion Gap 11 7 - 15 02/12/2020 DTL 7:51 AM CDT BUN (Blood Urea 12 6 - 21 02/12/2020 DTL Nitrogen), S mg/dL 7:51 AM CDT Creatinine 0.64 0.59 - 02/12/2020 DTL 1.04 mg/dL 7:51 AM CDT eGFR-Non >90 >=60 02/12/2020 DTL Black/ mL/min/BSA 7:51 AM CDT Hong Konger Comment: ----ADDITIONAL INFORMATION---- Estimated GFR calculated using the 2009 CKD_EPI creatinine equation. eGFR-Black/ >90 >=60 mL/min/BSA 2019 7:51 AM CDT DTL Comment: ----ADDITIONAL INFORMATION---- Estimated GFR calculated using the 2009 CKD_EPI creatinine equation. Calcium, Total, S 9.1 8.6 - 10.0 mg/dL 02/12/2020 7:51 AM CDT DTL Glucose, S 187 (H) 70 - 140 mg/dL 02/12/2020 7:51 AM CDT D TL Specimen Anatomical Collection Method Collection Time Receive d Time (Source) Location / / Volume Laterality Blood (Blood, 02/12/2020 6:40 AM 02/12/20 20 7:23 Venous) CDT AM CDT Anand Bermeo M.D., D.D.S. LAB BLOOD ADD-ON Performing Organization Address City/[facility] Phon e Number [facility] - [address] [place] [address] [place] [address] [place] [address] [place] [address] Laboratories-[address] Phosphorus Inorganic (02/11/2020 7:12 AM CDT) P athologist Signature Phosphorus 2.7 2.5 - 4.5 02/11/2020 DTL (Inorganic), S mg/dL 8:29 AM CDT Specimen Anatomical Collection Method Collection Time Receive d Time (Source) Location / / Volume Laterality Blood (Blood, 02/11/2020 7:12 AM 02/11/20 20 8:10 Venous) CDT AM CDT Patria Bright P.A.-C., M.S. LAB BLOOD ADD-ON Performing Organization Address City/State/ZIP Code Phon e Number [facility] - [address] [place] [address] Laboratories-[address] (ABNORMAL) CBC with Differential, Blood (02/10/2020 7:05 AM CDT) Patholo gist Method Time Signature Hemoglobin 9.4 (L) 11.6 - 02/10/2020 DTL 15.0 g/dL 7:41 AM CDT Hematocrit 29.6 (L) 35.5 - 02/10/2020 DTL 44.9 % 7:41 AM CDT Erythrocytes 3.03 (L) 3.92 - 02/10/2020 DTL 5.13 7:41 AM CDT x10(12)/L MCV 97.7 78.2 - 02/10/2020 DTL 97.9 fL 7:41 AM CDT RBC Distrib Width 12.3 12.2 - 02/10/2020 DTL 16.1 % 7:41 AM CDT Platelet Count 192 157 - 371 02/10/2020 DTL x10(9)/L 7:41 AM CDT Leukocytes 6.3 3.4 - 9.6 02/10/2020 DTL x10(9)/L 7:41 AM CDT Neutrophils 4.33 1.56 - 02/10/2020 DTL 6.45 7:41 AM CDT x10(9)/L Lymphocytes 1.41 0.95 - 02/10/2020 DTL 3.07 7:41 AM CDT x10(9)/L Monocytes 0.45 0.26 - 02/10/2020 DTL 0.81 7:41 AM CDT x10(9)/L Eosinophils 0.13 0.03 - 02/10/2020 DTL 0.48 7:41 AM CDT x10(9)/L Basophils <0.03 0.01 - 02/10/2020 DTL 0.08 7:41 AM CDT x10(9)/L Specimen Anatomical Collection Method Collection Time Receive d Time (Source) Location / / Volume Laterality Blood (Blood, 02/10/2020 7:05 AM 02/10/20 20 7:33 Venous) CDT AM CDT Rick Barrios D.D.S. LAB BLOOD ADD-ON Performing Organization Address City/[facility] Phon e Number [address] Magnesium (02/10/2020 7:04 AM CDT) athologist Signature Magnesium, S 1.9 1.7 - 2.3 02/10/2020 DTL mg/dL 8:15 AM CDT Specimen Anatomical Collection Method Collection Time Receive d Time (Source) Location / / Volume Laterality Blood (Blood, 02/10/2020 7:04 AM 02/10/20 7:46 Venous) CDT AM CDT Patria Bright P.A.-C., M.SAmara LAB BLOOD ADD-ON Performing Organization Address City/[facility] Phon e Number [facility] [address] (ABNORMAL) Basic Metabolic Panel (02/10/2020 7:04 AM CDT) athologist Signature Potassium, S 4.3 3.6 - 5.2 02/10/2020 DTL mmol/L 8:15 AM CDT Sodium, S 143 135 - 145 02/10/2020 DTL mmol/L 8:15 AM CDT Chloride, S 105 98 - 107 02/10/2020 DTL mmol/L 8:15 AM CDT Bicarbonate, S 30 (H) 22 - 29 02/10/2020 DTL mmol/L 8:15 AM CDT Anion Gap 8 7 - 15 02/10/2020 DTL 8:15 AM CDT BUN (Blood Urea 8 6 - 21 02/10/2020 DTL Nitrogen), S mg/dL 8:15 AM CDT Creatinine 0.70 0.59 - 02/10/2020 DTL 1.04 mg/dL 8:15 AM CDT eGFR-Non >90 >=60 02/10/2020 DTL Black/ mL/min/BSA 8:15 AM CDT [place]er Comment: ----ADDITIONAL INFORMATION---- Estimated GFR calculated using the 2009 CKD_EPI creatinine equation. eGFR-Black/ >90 >=60 mL/min/BSA 2019 8:15 AM CDT DTL Comment: ----ADDITIONAL INFORMATION---- Estimated GFR calculated using the 2009 CKD_EPI creatinine equation. Calcium, Total, S 8.6 8.6 - 10.0 mg/dL 02/10/2020 8:15 AM CDT DTL Glucose, S 104 70 - 140 mg/dL 02/10/2020 8:15 AM CDT D TL Specimen Anatomical Collection Method Collection Time Receive d Time (Source) Location / / Volume Laterality Blood (Blood, 02/10/2020 7:04 AM 02/10/20 7:46 Venous) CDT AM CDT Rick Barrios D.D.S. LAB BLOOD ADD-ON Performing Organization Address City/State/ZIP Code Phon e Number [facility] - [address] [place], [place] [address] [facility] [place] [address] [facility] [address] Phosphorus Inorganic (02/10/2020 7:04 AM CDT) P athologist Signature Phosphorus 2.6 2.5 - 4.5 02/10/2020 DTL (Inorganic), S mg/dL 8:15 AM CDT Specimen Anatomical Collection Method Collection Time Receive d Time (Source) Location / / Volume Laterality Blood (Blood, 02/10/2020 7:04 AM 02/10/20 7:46 Venous) CDT AM CDT Patria Bright P.A.-C., M.S. LAB BLOOD ADD-ON Performing Organization Address City/State/ZIP Code Phon e Number [facility] - [address] [place], [place] [address] [facility] [place] [address] [facility] [address] [facility] Tracheostomy Replacement (02/09/2020 10:38 AM CDT) Narrative Anand Bermeo M.D., Martinez.S. - 020 10:38 AM CDT Anand Bermeo M.D., SusyS. ? 02/09/2020 10:40 AM Tracheostomy Replacement Date/Time: 02/09/2020 10:38 AM Performed by: Anand Bermeo M.D., Shad KulkarniS. Authorized by: Anand Bermeo M.D., Ruma GarzaS. Care team members present 1. Rick Barrios D.D.SAmara PROCEDURE DETAILS Tube type: ??Inner cannula Tube cuff: ??Cuffless Tube size (mm): ??4.0 CONSENT Consent obtained: verbal Consent given by: patient PRE-PROCEDURE DETAILS Indication: ??Weaning protocol Appropriate hand hygiene, gown, cap, mas k, protective eyewear, sterile gloves, skin preparation, sterile drape, and strict aseptic technique were utilized as applicable for the procedure .: yes ?? SEDATION / ANESTHESIA Anesthesia method: local infiltration Local infiltrate type: lidocaine POST-PROCEDURE DETAILS Tracheostomy secured with: sutures ?? Procedure completed successfully: yes ?? Complications: no immediate complication s ?? Anand Bermeo M.D., D.D.S. PROCEDURE/MINOR SURGICAL ORDERABLES Magnesium (02/09/2020 4:09 AM CDT) P athologist Signature Magnesium, S 2.1 1.7 - 2.3 02/09/2020 DTL mg/dL 5:50 AM CDT Specimen Anatomical Collection Method Collection Time Receive d Time (Source) Location / / Volume Laterality Blood (Blood, 02/09/2020 4:09 AM 02/09/20 5:27 Venous) CDT AM CDT Patria Bright P.A.-C., MAmaraS. LAB BLOOD ADD-ON Performing Organization Address City/State/ZIP Code Phon e Number [facility] - [address] [place], [place] [address] [facility] [place] [address] [facility] [address] [facility] (ABNORMAL) CBC with Differential, Blood (02/09/2020 4:09 AM CDT) [facility] gist Method Time Signature Hemoglobin 9.8 (L) 11.6 - 02/09/2020 DTL 15.0 g/dL 5:22 AM CDT Hematocrit 31.3 (L) 35.5 - 02/09/2020 DTL 44.9 % 5:22 AM CDT Erythrocytes 3.23 (L) 3.92 - 02/09/2020 DTL 5.13 5:22 AM CDT x10(12)/L MCV 96.9 78.2 - 02/09/2020 DTL 97.9 fL 5:22 AM CDT RBC Distrib Width 12.3 12.2 - 02/09/2020 DTL 16.1 % 5:22 AM CDT Platelet Count 175 157 - 371 02/09/2020 DTL x10(9)/L 5:22 AM CDT Leukocytes 7.0 3.4 - 9.6 02/09/2020 DTL x10(9)/L 5:22 AM CDT Neutrophils 4.82 1.56 - 02/09/2020 DTL 6.45 5:22 AM CDT x10(9)/L Lymphocytes 1.51 0.95 - 02/09/2020 DTL 3.07 5:22 AM CDT x10(9)/L Monocytes 0.60 0.26 - 02/09/2020 DTL 0.81 5:22 AM CDT x10(9)/L Eosinophils 0.03 0.03 - 02/09/2020 DTL 0.48 5:22 AM CDT x10(9)/L Basophils 0.03 0.01 - 02/09/2020 DTL 0.08 5:22 AM CDT x10(9)/L Specimen Anatomical Collection Method Collection Time Receive d Time (Source) Location / / Volume Laterality Blood (Blood, 02/09/2020 4:09 AM 02/09/20 20 5:13 Venous) CDT AM CDT Rick L Barrios D.D.SAmara LAB BLOOD ADD-ON Performing Organization Address City/State/ZIP Code Phon e Number [facility] - [address] [place], [place] [address] [facility] [place] [place] [address] [facility] [address] [facility] (ABNORMAL) Basic Metabolic Panel (02/09/2020 4:09 AM CDT) P athologist Signature Potassium, S 4.1 3.6 - 5.2 02/09/2020 DTL mmol/L 5:50 AM CDT Sodium, S 143 135 - 145 02/09/2020 DTL mmol/L 5:50 AM CDT Chloride, S 104 98 - 107 02/09/2020 DTL mmol/L 5:50 AM CDT Bicarbonate, S 30 (H) 22 - 29 02/09/2020 DTL mmol/L 5:50 AM CDT Anion Gap 9 7 - 15 02/09/2020 DTL 5:50 AM CDT BUN (Blood Urea 9 6 - 21 02/09/2020 DTL Nitrogen), S mg/dL 5:50 AM CDT Creatinine 0.76 0.59 - 02/09/2020 DTL 1.04 mg/dL 5:50 AM CDT eGFR-Non 88 >=60 02/09/2020 DTL Black/ mL/min/BSA 5:50 AM CDT [place] Comment: ----ADDITIONAL INFORMATION---- Estimated GFR calculated using the 2009 CKD_EPI creatinine equation. eGFR-Black/ >90 >=60 mL/min/BSA 2019 5:50 AM CDT DTL Comment: ----ADDITIONAL INFORMATION---- Estimated GFR calculated using the 2009 CKD_EPI creatinine equation. Calcium, Total, S 8.4 (L) 8.6 - 10.0 mg/dL 02/09/2020 5:50 AM CDT DTL Glucose, S 90 70 - 140 mg/dL 02/09/2020 5:50 AM CDT D TL Specimen Anatomical Collection Method Collection Time Receive d Time (Source) Location / / Volume Laterality Blood (Blood, 02/09/2020 4:09 AM 02/09/20 5:27 Venous) CDT AM CDT Rick Barrios D.D.S. LAB BLOOD ADD-ON Performing Organization Address City/[facility] Phon e Number [facility] - [address] [place] [address] [place] [id number] [address] Phosphorus Inorganic (02/09/2020 4:09 AM CDT) P athologist Signature Phosphorus 2.6 2.5 - 4.5 02/09/2020 DTL (Inorganic), S mg/dL 5:50 AM CDT Specimen Anatomical Collection Method Collection Time Receive d Time (Source) Location / / Volume Laterality Blood (Blood, 02/09/2020 4:09 AM 02/09/20 5:27 Venous) CDT AM CDT Patria Bright P.A.-C. M.S. LAB BLOOD ADD-ON Performing Organization Address [facility] Phon e Number [place] [phone] [address] (ABNORMAL) CBC with Differential, Blood (02/08/2020 3:48 AM CDT) Patholo gist Method Time Signature Hemoglobin 11.2 (L) 11.6 - 02/08/2020 DTL 15.0 g/dL 4:17 AM CDT Hematocrit 33.8 (L) 35.5 - 02/08/2020 DTL 44.9 % 4:17 AM CDT Erythrocytes 3.58 (L) 3.92 - 02/08/2020 DTL 5.13 4:17 AM CDT x10(12)/L MCV 94.4 78.2 - 02/08/2020 DTL 97.9 fL 4:17 AM CDT RBC Distrib Width 12.5 12.2 - 02/08/2020 DTL 16.1 % 4:17 AM CDT Platelet Count 201 157 - 371 02/08/2020 DTL x10(9)/L 4:17 AM CDT Leukocytes 9.6 3.4 - 9.6 02/08/2020 DTL x10(9)/L 4:17 AM CDT Neutrophils 7.77 (H) 1.56 - 02/08/2020 DTL 6.45 4:17 AM CDT x10(9)/L Lymphocytes 0.90 (L) 0.95 - 02/08/2020 DTL 3.07 4:17 AM CDT x10(9)/L Monocytes 0.93 (H) 0.26 - 02/08/2020 DTL 0.81 4:17 AM CDT x10(9)/L Eosinophils <0.03 0.03 - 02/08/2020 DTL 0.48 4:17 AM CDT x10(9)/L Basophils <0.03 0.01 - 02/08/2020 DTL 0.08 4:17 AM CDT x10(9)/L Specimen Anatomical Collection Method Collection Time Receive d Time (Source) Location / / Volume Laterality Blood (Blood, 02/08/2020 3:48 AM 02/08/20 20 4:02 Venous) CDT AM CDT Rick Barrios D.D.S. LAB BLOOD ADD-ON Performing Organization Address City/State/ZIP Code Phon e Number [facility] - [address] [place] [address] [phone] [facility] [place] [address] [facility] 200 [facility] Basic Metabolic Panel (02/08/2020 3:48 AM CDT) P athologist Signature Potassium, S 4.9 3.6 - 5.2 02/08/2020 DTL mmol/L 4:33 AM CDT Sodium, S 141 135 - 145 02/08/2020 DTL mmol/L 4:33 AM CDT Chloride, S 102 98 - 107 02/08/2020 DTL mmol/L 4:33 AM CDT Bicarbonate, S 26 22 - 29 02/08/2020 DTL mmol/L 4:33 AM CDT Anion Gap 13 7 - 15 02/08/2020 DTL 4:33 AM CDT BUN (Blood Urea 13 6 - 21 02/08/2020 DTL Nitrogen), S mg/dL 4:33 AM CDT Creatinine 0.75 0.59 - 02/08/2020 DTL 1.04 mg/dL 4:33 AM CDT eGFR-Non 89 >=60 02/08/2020 DTL Black/ mL/min/BSA 4:33 AM CDT Hong Konger Comment: ----ADDITIONAL INFORMATION---- Estimated GFR calculated using the 2009 CKD_EPI creatinine equation. eGFR-Black/ >90 >=60 mL/min/BSA 2019 4:33 AM CDT DTL Comment: ----ADDITIONAL INFORMATION---- Estimated GFR calculated using the 2009 CKD_EPI creatinine equation. Calcium, Total, S 8.7 8.6 - 10.0 mg/dL 02/08/2020 4:33 AM CDT DTL Glucose, S 116 70 - 140 mg/dL 02/08/2020 4:33 AM CDT D TL Specimen Anatomical Collection Method Collection Time Receive d Time (Source) Location / / Volume Laterality Blood (Blood, 02/08/2020 3:48 AM 02/08/20 4:17 Venous) CDT AM CDT Rick Barrios D.D.S. LAB BLOOD ADD-ON Performing Organization Address City/[facility] Phon e Number [facility] - [address] Calcium, Ionized (02/08/2020 3:48 AM CDT) P athologist Signature Calcium, 4.97 4.57 - 5.43 02/08/2020 DTL Ionized, S mg/dL 4:24 AM CDT Comment: ----ADDITIONAL INFORMATION---- This test has been modified from the man ufacturer's instructions. Its performance characteri stics were determined by [facility] in a manner co nsistent with CLIA requirements. This test has not bee n cleared or approved by the U.S. Food and Drug Admin istration. pH for Ionized Calcium 7.38 7.35 - 7.48 02/08/2020 4:24 AM CDT DTL Specimen Anatomical Collection Method Collection Time Receive d Time (Source) Location / / Volume Laterality Blood (Blood, 02/08/2020 3:48 AM 02/08/20 4:17 Venous) CDT AM CDT Rick Barrios D.D.S. LAB BLOOD NON ADD-ON Performing Organization Address City/[facility] Phon e Number [facility] - [address] Magnesium (02/08/2020 3:48 AM CDT) P athologist Signature Magnesium, S 2.0 1.7 - 2.3 02/08/2020 DTL mg/dL 4:33 AM CDT Specimen Anatomical Collection Method Collection Time Receive d Time (Source) Location / / Volume Laterality Blood (Blood, 02/08/2020 3:48 AM 02/08/20 20 4:17 Venous) CDT AM CDT Rick Barrios D.D.S. LAB BLOOD ADD-ON Performing Organization Address City/[facility] Phon e Number [facility] - 200 [place], [place] [address] [place] [phone] Phosphorus Inorganic (02/08/2020 3:48 AM CDT) athologist Signature Phosphorus 3.2 2.5 - 4.5 02/08/2020 DTL (Inorganic), S mg/dL 4:33 AM CDT Specimen Anatomical Collection Method Collection Time Receive d Time (Source) Location / / Volume Laterality Blood (Blood, 02/08/2020 3:48 AM 02/08/20 20 4:17 Venous) CDT AM CDT Rick Barrios D.D.S. LAB BLOOD ADD-ON Performing Organization Address City/[facility] Phon e Number [facility] - [address] [place], [place] [address] [place] [address] DX Abdomen Portable Anterior Posterior 1 View (02/07/2020 7:31 PM CDT) Anatomical Region Laterality Modality Abdomen, Abdominal RST LOS, Abdominal ARZ LOS, N/A Digital Radiography Abdominal FLA LOS Specimen (Source) Anatomical Collection Method Collection Time Re ceived Time Location / / Volume Laterality 02/07/2020 7:49 PM CDT Impressions 02/07/2020 8:12 PM CDT Enteric tube with tip in the gastric bod y. Narrative 02/07/2020 8:12 PM CDT EXAM: ??DX ABDOMEN PORTABLE ANTERIOR POSTERIOR 1 VIEW Procedure Note Perla Belcher M.B., Ch.B. - EXAM: DX ABDOMEN PORTABLE ANTERIOR POSTE RIOR 1 VIEW IMPRESSION: Enteric tube with tip in the gastric bod y. Issac Woodward M.D., Martinez.S. IMG DIAGNOSTIC IMAGING NC OCEDURES Surgical Pathology, Frozen Lab (02/07/2020 12:56 PM CDT) Component Value Ref Test Analysis Performed At [facility] gist Range Method Time Signature 02/12/2020 STMA 2:35 PM CDT Participated in [facility]en All, 02/12/2020 STMA the M.B.B.S.-Pathol 2:35 PM CDT Interpretation ogy Resident Report Ebony Garner.BAmaraS., Ph.D. [phone] 02/12/2020 [facility] electronically I verify that I have examined all relevant slides/ma terials 2:35 PM CDT signed by for the specimen(s) and rendered or confirmed the diagnosis. Gross Description A. ??Received fresh labeled right mandible i s a 10.5 x 3.5 02/12/2020 STMA x 1.5 cm right mandible with two teeth (molars). 2:35 PM CDT Sectioning demonstrates unremarkable bone. ??Art Tracer tissue submitted for permanent sections, following decalcification. Grossed by [facility]. Block Summary A Right mandible 02/12/2020 STMA A1 Bone adjacent to molars 1 2:35 PM CDT A2 Bone adjacent to molars 12 Interpretation FINAL DIAGNOSIS 02/12/2020 STMA A. ??Mandible, right, segmental resection: ??Bone with marro w 2:35 PM CDT space fibrosis and reactive changes. Specimen (Source) Anatomical Collection Method Collection Time Re ceived Time Location / / Volume Laterality Bone (Mandible) 02/07/2020 12:56 PM CDT Narrative This result has an attachment that is no t available. Issac Woodward M.D., Martinez.S. LAB SURG PATH ORDERABLES Performing Organization Address City/State/ZIP Code Phon e Number [facility] - [address] [place], [place] [address] [place] [address] [facility] [address] documented in this encounter Visit Diagnoses Diagnosis Osteomyelitis Mandible - Primary Encounter For Screening For Other Viral Diseases (COVID-19) Decline Functional Status Debility Home Enteral Nutrition Dysphagia Oropharyngeal Phase Encounter For Screening For Other Viral Diseases (COVID-19) Osteomyelitis Mandible documented in this encounter Admitting Diagnoses Diagnosis Encounter For Screening For Other Viral Diseases (COVID-19) Osteomyelitis Mandible documented in this encounter Administered Medications Inactive Administered Medications - up to 3 most recent administrations Medication Order MAR Action Action Date Dose Rate Site acetaminophen tablet 1,000 mg Given 02/13/2020 9:50 AM CDT 1,000 mg (TYLENOL) 1,000 mg, gastric tube, Every 6 hours, First dose on Bernie 02/07/20 at 2200, Give via G-tube Given 02/13/2020 5:02 AM CDT 1,000 mg Given 02/12/2020 9:24 PM CDT 1,000 mg aspirin tablet 325 mg Given 02/13/2020 9:50 AM CDT 325 mg 325 mg, gastric tube, Daily, First dose (after last modification) on Tue02/09/20 at 0900 Given 02/12/2020 8:51 AM CDT 325 mg Given 02/11/2020 8:58 AM CDT 325 mg bacitracin zinc 500 unit/gram ointment Given 02/13/2020 9:51 AM CDT 1 packet packet 1 packet 1 packet (1 application), topical, 2 times daily, First dose on Tue02/08/20 at 0900, Apply to neck incision Given 02/12/2020 9:24 PM CDT 1 packet Given 02/12/2020 8:51 AM CDT 1 packet ceFAZolin in dextrose (iso-os) IVPB 2 New Bag 02/13/2020 5:03 AM CDT 2 g 200 mL/hr g (ANCEF) 2 g, intravenous, at 200 mL/hr, Administer over 30 Minutes, Every 8 hours, First dose on Bernie 02/07/20 at 2200, Start within 8 hours of last IV dose. premix bag, Drug Monitoring Program: Pharmacist to adjust medication dosing based on indication and drug clearance factors., Indications: Prophylaxis, surgical New Bag 02/12/2020 9:24 PM CDT 2 g 200 mL/hr New Bag 02/12/2020 2:49 PM CDT 2 g 200 mL/hr enoxaparin injection 40 mg Given 02/13/2020 9:50 AM CDT 40 mg Right Lower Abdomen (LOVENOX) 40 mg, subcutaneous, Daily, First dose on Tue02/09/20 at 0900 Given 02/12/2020 8:51 AM CDT 40 mg Right Lower Abdomen Given 02/11/2020 8:58 AM CDT 40 mg Right Lower Abdomen gabapentin solution 100 mg (NEURONTIN) Given 02/13/2020 5:02 AM CDT 100 mg 100 mg, gastric tube, Every 8 hours scheduled, First dose on Tue02/08/20 at 1400 Given 02/12/2020 9:41 PM CDT 100 mg Given 02/12/2020 1:41 PM CDT 100 mg heparin 10 Units/mL in NaCl 0.9% 100 mL Given 02/07/2020 1:33 PM CDT 80 mL Other flush solution irrigation, Once in surgery, For flap, Starting on Bernie 02/07/20 at 0628, For 1 dose, Intra-Op, *Flush/Irrigation use only* HYDROmorphone (PF) injection 0.4 mg Given 02/07/2020 9:44 PM CDT 0.4 mg (DILAUDID) 0.4 mg, intravenous, Every 4 hours PRN, severe pain or score 7-10 of 10, Starting on Bernie 02/07/20 at 2102 lactated ringers Rate/Dose Verify 02/12/2020 6:00 AM CDT 20 mL/hr 20 mL/hr 20 mL/hr, intravenous, Continuous, Starting on Bernie 02/07/20 at 1815 Rate/Dose Verify 02/12/2020 3:00 AM CDT 20 mL/hr 20 mL/hr Rate/Dose Verify 02/12/2020 1:17 AM CDT 20 mL/hr 20 mL/hr lansoprazole suspension 30 mg (PREVACID) Given 02/13/2020 5:04 AM CDT 30 mg 30 mg, gastric tube, Daily before breakfast, First dose on Tue02/08/20 at 0700 Given 02/12/2020 6:33 AM CDT 30 mg Given 02/11/2020 6:23 AM CDT 30 mg metoclopramide solution 10 mg (REGLAN) Given 02/13/2020 10:52 AM CDT 10 mg 10 mg, gastric tube, 4 times daily before meals and bedtime, First dose on Tue02/10/20 at 1100 Given 02/13/2020 5:05 AM CDT 10 mg Given 02/12/2020 9:24 PM CDT 10 mg metroNIDAZOLE in NaCl (iso-osm) New Bag 02/13/2020 5:05 AM CDT 500 mg 200 mL/hr IVPB 500 mg (FLAGYL) 500 mg, intravenous, at 200 mL/hr, Administer over 30 Minutes, Every 8 hours, First dose on Bernie 02/07/20 at 2200, Start within 8 hours of last IV dose., Indications: Prophylaxis, surgical New Bag 02/12/2020 10:17 PM CDT 500 mg 200 mL/hr New Bag 02/12/2020 1:30 PM CDT 500 mg 200 mL/hr oxyCODONE solution 10 mg (ROXICODONE) Given 02/13/2020 1:20 PM CDT 10 mg 10 mg, oral, Every 4 hours PRN, severe pain or score 7-10 of 10, Starting on Bernie 02/07/20 at 1814 Given 02/13/2020 9:10 AM CDT 10 mg Given 02/13/2020 5:02 AM CDT 10 mg oxyCODONE solution 5 mg (ROXICODONE) Given 02/12/2020 5:27 PM CDT 5 mg 5 mg, oral, Every 4 hours PRN, moderate pain or score 4-6 of 10, Starting on Bernie 02/07/20 at 1814 Given 02/12/2020 1:41 PM CDT 5 mg Given 02/10/2020 4:18 AM CDT 5 mg papaverine 300 mg in NaCl 0.9% 100 mL Given 02/07/2020 10:39 AM CDT 15 mL Mouth flush solution 100 mL, other, Once in surgery, OR use only, Starting on Bernie 02/07/20 at 0628, For 1 dose, Intra-Op, *For Flush Use Only* sennosides-docusate sodium 8.6-50 mg per Given 02/09/2020 9: 14 PM CDT 2 tablets tablet 2 tablet (SENOKOT-S) 2 tablet, gastric tube, Daily at bedtime, First dose on Bernie 02/07/20 at 2100, While on opioids. Hold for diarrhea. Given 02/08/2020 9:11 PM CDT 2 tablets Given 02/07/2020 9:46 PM CDT 2 tablets documented in this encounter Active and Recently Administered Medications Times are shown in CDT. Scheduled Medication Order 02/11/2020 02/12/2020 02/13/2020 acetaminophen tablet 1,000 mg (TYLENOL) 0343 (Given - Provider: Perla Duckworth R.N.)1057 (Given - Provider: Ericka Hitchcock R.N.)1616 (Given - Provider: Coby Jefferson R.N.)2156 (Given - Provider: Myesha Fish R.N.) 0404 (Given - Provider: Myesha Fish R.N.)1020 (Given - Provider: Ericka Hitchcock R.N.)1620 (Given - Provider: Coby Jefferson R.N.)2124 (Given - Provider: Coby Jefferson R.N.) 0502 (Given - Provider: Yoko Roberts R.N.)0950 (Given - Provider: Ericka Hitchcock R.N.) 1,000 mg, gastric tube, Every 6 hours, F irst dose on Bernie 02/07/20 at 2200, Give via G-tube aspirin tablet 325 mg 0858 (Given - Provider: Ericka singh RAmaraNAmara) 0851 (Given - Provider: Ericka Hitchcock R.N.) 0950 (Given - Provider: Ericka Hitchcock R.N.) 325 mg, gastric tube, Daily, First dose (after last modification) on 02/09/20 at 0900 bacitracin zinc 500 unit/gram ointment packet 1 packet 0858 (Given - Provider: Ericka Hitchcock R.N.)2111 (Given - Provider: Myesha Fish R.N.) 0851 (Given - Provider: Ericka Hitchcock R.N.)2123 (Given - Provider: Coby Jefferson R.N.) 0951 (Given - Provider: Ericka Hitchcock R.N.) 1 packet (1 application), topical, 2 pilo es daily, First dose on 02/08/20 at 0900, Apply to neck incision ceFAZolin in dextrose (iso-os) IVPB 2 g (ANCEF) 0620 ( New Bag - Provider: Perla Duckworth R.N.)1344 (New Bag - Provider: Ericka Hitchcock R.N.)215 (New Bag - Provider: Hellen ToneyNAmara) 0535 (New Bag - Provider: Myesha Fish R.N.)1449 (New Bag - Provider: Ericka Hitchcock R.N.)2123 (New Bag - Provider: Coby Jefferson R.N.) 0503 (New Bag - Provider: Yoko polanco R.NAmara) 2 g, intravenous, at 200 mL/hr, Administ er over 30 Minutes, Every 8 hours, First dose on Bernie 02/07/20 at 2200, Start within 8 hours of last IV dose. premix bag, Drug Monitoring Program: Pharmacist to adj ust medication dosing based on indicatio n and drug clearance factors., Indications: Prophylaxis, surgical enoxaparin injection 40 mg (LOVENOX) 0858 (Given - Pro vider: Ericka Hitchcock R.N.) 0851 (Given - Provider: Ericka Hitchcock R.N.) 0950 ( Given - Provider: Ericka Hitchcock R.N.) 40 mg, subcutaneous, Daily, First dose on 02/09/20 at 0900 gabapentin solution 100 mg (NEURONTIN) 0623 (Given - P rovider: Perla Duckworth R.N.)1340 (Given - Provider: Ericka Hitchcock R.N.)211 (Given - Provider: Hellen ToneyNAmara) 0536 (Given - Provider: Myesha Fish R.N.)134 (Given - Provider: Ericka Hitchcock R.N.)2140 (Given - Provider: Coby Jefferson RTammy) 0502 (Given - Provider: Yoko Roberts RAmaraNAmara) 100 mg, gastric tube, Every 8 hours sche duled, First dose on 02/08/20 at 1400 lansoprazole suspension 30 mg (PREVACID) 0623 (Given - Provider: Perla Duckworth R.N.) 0633 (Given - Provider: Myesha Fish RAmaraNAmara) 0504 ( Given - Provider: Yoko Roberts R.N.) 30 mg, gastric tube, Daily before breakfast, First dose on F ri 02/08/20 at 0700 metoclopramide solution 10 mg (REGLAN) 0623 (Given - P rovider: Hellen NegronNAmara)1057 (Given - Provider: Ericka Hitchcock R.N.)1617 (Given - Provider: Coby Jefferson RAmaraNAmara)2111 (Given - Provider: Hellen ToneyNAmara) 0633 (Given - Provider: Hellen ToneyN.)1020 (Given - Provider: Hellen BrandtN.)1621 (Given - Provider: Hellen HowellNAmara)2124 (Given - Provider: Hellen HowellNAmara) 0505 (Given - Provider: Hellen ParekhNAmara)1052 (Given - Provider: Ericka Hitchcock R.N.) 10 mg, gastric tube, 4 times daily befor e meals and bedtime, First dose on Zachary 02/10/20 at 1100 metroNIDAZOLE in NaCl (iso-osm) IVPB 500 mg (FLAGYL) 0 655 (New Bag - Provider: Perla Duckworth R.N.)1443 (New Bag - Provider: Ericka Hitchcock R.N.)2111 (New Bag - Provider: Hellen ToneyNAmara) 0633 (New Bag - Provider: Hellen ToneyNAmara)1330 (New Bag - Provider: Ericka Hitchcock RAmaraNAmara)2217 (New Bag - Provider: Coby Jefferson R.N.) 0505 (New Bag - Provider: Yoko polanco RAmaraNAmara) 500 mg, intravenous, at 200 mL/hr, Admin ister over 30 Minutes, Every 8 hours, First dose on Bernie 02/07/20 at 2200, Start within 8 hours of last IV dose., Indications: Prophylaxis, surgical sennosides-docusate sodium 8.6-50 mg per tablet 2 tabl et (SENOKOT-S) 2107 (Not Given - Provider: Myesha Fish R.N. - Reason: Patient/family refused) 221 (Not Given - Provider: Coby Jefferson R.N. - Reason: Patient/family refused) 2 tablet, gastric tube, Daily at bedtime , First dose on Bernie 02/07/20 at 2100, While on opioids. Hold for diarrhea. Continuous Medication Order 02/11/2020 02/12/2020 02/13/2020 lactated ringers 0624 (Rate/Dose Change - Pro vider: Perla Duckworth R.N.)1626 (Rate/Dose Verify - Provider: Coby Jefferson R.N.)1941 (Rate/Dose Verify - Provider: Myesha Fish R.N.) 0117 (Rate/Dose Verify - Provider: hCapin Fish R.N.)0300 (Rate/Dose Verify - Provider: Myesha Fish R.N.)0600 (Rate/Dose Verify - Provider: Myesha Fish R.N.) 20 mL/hr, intravenous, Continuous, Starting on Bernie 02/07/20 at 18 15 PRN Medication Order 02/11/2020 02/12/2020 02/13/2020 barium 40 % (w/v) oral powder for suspension (VARIBAR THIN L IQUID) (COMPLETED) 1441 (Given - Provider: Zeferino Fox M.D. - Comment: Given by Fern Tiwari M.A., [employer]) oral, Code/trauma/sedation medication, Starting on Tue02/12/20 a t 1441 barium 40 % (w/v), 30% (w/w) paste (VARIBAR PUDDING) (COMPLE AYAN) 1439 (Given - Provider: Zeferino Fox M.D. - Comment: Given by Fern Castro M.A., [employer]) oral, Code/trauma/sedation medication, Starting on Tue02/12/20 a t 1439 bisacodyL suppository 10 mg (DULCOLAX) 10 mg, rectal, Daily PRN, constipation, Starting Bernie 02/07/20 at 1813, Ordered sequence of administration: polyethylene glycol, then milk of magnesia then bisacodyl until BM achieved. HYDROmorphone (PF) injection 0.4 mg (DILAUDID) 0.4 mg, intravenous, Every 4 hours PRN, severe pain or score 7-10 of 10, Starting on Bernie 02/07/20 at 2102 iohexoL 300 mg iodine/mL solution (OMNIPAQUE) (COMPLETED) 1441 (Given - Provider: Zeferino Fox M.D. - Comment: Given by Fern Castro M.A., [facility] [employer]) Code/trauma/sedation medication, Starting on Tue02/12/20 at 1441 LORazepam injection 0.5 mg (ATIVAN) (CANCELED) 8 (G iven - Provider: Myesha iFsh RAmaraNAmara) 0.5 mg, intravenous, Every 4 hours PRN, anxiety, anxiety with capping trial, Starting on Tue02/11/20 at 0642, For intravenous use, dilute with equal volume of 0.9% NS naloxone injection 0.2 mg (NARCAN) 0.2 mg, intravenous, As needed, respirat ory depression, Starting Bernie 02/07/20 at 1814, For RASS Score -4 or less, respiratory rate of less than 8 breaths/min. Notify provider/service and rapid response team (if available at institution). oxyCODONE solution 10 mg (ROXICODONE) 0342 (Given - Pr ovider: Perla Duckworth R.N.)0858 (Given - Provider: Ericka Hitchcock, R.N.)1445 (Given - Provider: Ericka Hitchcock, R.N.)1940 (Given - Provider: Myesha Fish, R.N.) 0114 (Given - Provider: Myesha Fish, R.N.)0633 (Given - Provider: Myesha Fish R.N.)2124 (Given - Provider: Coby Jefferson R.N.) 0113 (Given - Provider: Yoko Roberts R.N.)0502 (Given - Provider: Yoko Roberts R.N.)0910 (Given - Provider: Keiry Phoenix R.N.)1320 (Given - Provider: Ericka Hitchcock R.NAmara) 10 mg, oral, Every 4 hours PRN, severe p ain or score 7-10 of 10, Starting on Bernie 02/07/20 at 1814 oxyCODONE solution 5 mg (ROXICODONE) 134 1 (Given - Provider: Ericka Hitchcock R.N.)1727 (Given - Provider: Coby Jefferson RAmaraNAmara) 5 mg, oral, Every 4 hours PRN, moderate pain or score 4-6 of 10, Starting on Bernie 02/07/20 at 1814 polyethylene glycol powder packet 1 packet (MIRALAX) 1 packet, gastric tube, Daily PRN, const ipation, Starting Bernie 02/07/20 at 1814, Ordered sequence of administration: polyethylene glycol, then milk of magnesia then bisacodyl until BM achieved. Avoid mixi ng with starch-based thickened liquids., Indications: constipati on documented in this encounter
--- OUTSIDE RECORDS SUMMARY | 2022-05-05 14:41 | XMS_ITS | Encounter Summary ---
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 N.P. [address] [place] [phone] (Wo rk) 05/12/2022 Appointment Oral and Maxillofacial Issac Woodward, Surgery Marlyn, D.D.S. [address] [place] [phone] (Wo rk) documented as of this encounter Procedures Procedure Name Priority Date/Time Associated Comments Diagnosis ORAL AND MAXILLOFACIAL Routine 02/07/2020 12:00 R esults for this SURGERY IMAGE EXAM PM CDT procedure are in the results section. documented in this encounter Results Neck-Reproduction Artist Image Exam (02/07/2020 12:00 PM CDT) Specimen (Source) Anatomical Location Collection Method / Collectio n Time Received Time / Laterality Volume Narrative IIMS - 02/08/2020 7:24 AM CDT This order has been created [...]
--- OUTSIDE RECORDS SUMMARY | 2022-05-05 14:41 | XMS_ITS | Encounter Summary ---
:1965 Author Organization [facility] Address [address] [place] [address] Care Team Providers Name Role Phone Unavailable Primary Care Provider Unavailable Reason for Visit Auth/Cert Specialty Diagnoses / Procedures Referred By Contact Refer red To Contact Diagnoses Inflammatory conditions of jaws Procedures WI EXCISN BN KATIE WI EGD PERC PLC GASTROTOMY TUBE WI TRACHEOST FENESTRATION W FLAPS WI FREE OSTQ FLAP W MICROVASC GR TOE WI OSTEOTOMY MANDIBLE SEGMENTAL SEGMENTAL RESECTION MANDIBLE ESOPHAGOGASTRODUODENOSCOPY - NASOGASTRIC/NASOJEJUNAL FEEDING TUBE PLACEMENT TRACHEOSTOMY VASCULARIZED FIBULA DESHAWN-OSSEOUSCUTANEOUS GRAFT TO MANDIBLE Custom plate Referral ID Status Reason Start Date Expiration Date Visits Requ ested Visits Authorized [id number] 1 1 Encounter Details Date Type Department Care Team Description 02/07/2020 Anesthesia Event [facility] OR Tyshawn Cárdenas M.D. [address] [place] [address] [address] [facility] Jonathan Harrington M.D., [place] [address] Anesthesia Record Procedure Summary Procedure Name Responsible Anesthesia Start Anesthesia Stop Time Anesthesiologist Time SEGMENTAL RESECTION Tyshawn Cárdenas M.D. 02/07/20 0729 0 02/07/20 1533 MANDIBLE. (Right) Events Date Time Event Comment 02/07/2020 0717 0729 An Start Machine/Equipmen t Checked Infection Precautions Foll owed Procedure/Site Verified NPO Sta tus Verified Supine Standard ASA Mon itors Applied 0730 An Induction 0732 An Intubation 0737 In Room 0755 Turnover to Proceduralist 0832 Proc Start 0916 Quick Note Trach in place p er proceduralist. Oral ETT removed per proceduralist 1349 Quick Note Surgeon requeste d increasing BP to evaluate anastom osis 1502 Proc Fin 1505 Turnover to ANE Staff 1515 Airway Removal Criteria Met 1517 Extubation/Airway Removed 1517 an stop data 1519 Out of Room 1533 An End I completed my h andoff to the receiving staff during [facility] we 1. Identified the patient 2. Ident ified the responsible provider 3. Revi ewed the pertinent medical history 4. Discussed the surgical course 5. Review ed intra-op anesthesia management and i ssues during anesthesia 6. Set expectati ons for post-procedure period 7. Allowe d opportunity for questions and ac knowledgement of understanding. Name Total fentanyl injection 50 mcg/mL 350 mcg lidocaine 2% (mg) injection 100 mg propofol 10 mg/mL 200 mg succinylcholine 20 mg/mL injection 120 mg phenylephrine 100 mcg/mL injection 200 mcg ePHEDrine PF 5 mg/mL syringe injection 15 mg ondansetron 4 mg/2 mL injection 4 mg sugammadex 100 mg/mL injection 170 mg ceFAZolin injection 2,000 mg (ANCEF) 6 g dexamethasone injection 10 mg (DECADRON) 10 mg metroNIDAZOLE in NaCl (iso-osm) IVPB 500 mg (FLAGYL) 1 ,000 mg phenylephrine 80 mcg/mL in NaCl 0.9% 250 mL infusion 0 mg rocuronium 10 mg/mL injection 140 mg HYDROmorphone PF 2 mg/mL injection 2 mg ketamine 10 mg/mL injection 20 mg Lactated Ringers Free Drip 1,600 mL lactated ringers free drip 600 mL Agents No agents on file. Blood No blood administrations on file. Lines, Drains, and Airways Type Details Placement Removal NG/OG Tube 02/07/20; 1445; 02/07/20 1445 by Nasogastric; 12 Fr; Pauly Loving Rebecca A, Right R.NAmara (RETIRED) Incision 12/14/18; 0902; Mouth; 12/14/18 0902 by 05/12 1418 by Right; 05/12/21 (Removed Myesha Valenzuela, [facility] by background completion R.NAmara nd, [employer] utility); 1418 (Removed Automate d Batch Job by background completion utility) PICC Single Lumen Placement Date: 01/16/20; 01/16/20 1030 by 1020 by Placement Time: 1030; Lizz Shepard Tesulov, Jan S, RAmaraN. Cath Out Checklist R.N. Completed: Yes; Size: 4 Fr; Length: 41 cm; Orientation: Right; Location: Brachial; Site Prep: Chlorhexidine (Preferred); Local Anesth: Intradermal lidocaine; Initial Extremity Circumference: 29 cm; Initial Exposed Catheter: 0 cm; Insertion Attempts: 1; Placement Verification: Blood return, ECG guidance; Removal Date: 02/13/20; Removal Time: 1020; Removal Cath Length: 41 cm ETT Placement Date: 02/07/20; 02/07/20 0732 by 02/06 1517 by Placement Time: 07 Jonathan Harrington Vallejo, Marvin A, (created via procedure MKayla, Ruma.M.D. M.Shad, D.M .D. documentation); Mask Ventilation: Easy mask; Type: Standard ETT; Single Lumen Tube Size: 7 mm; Cuffed: Yes; Location: Oral; Removal Date: 02/07/20; Removal Time: 151 Indwelling Urinary Placement Date: 02/07/20; 02/07/20 0745 by 0800 by Catheter Placement Time: 0745; Nisa Coats Green, El izabeth S, Inserted by: Ayan Costa, RTammy RN; Type: Temperature probe; Size: 16 Fr.; Balloon Size: 10 mL; Urine Returned: Yes; Removal Date: 02/09/20; Removal Time: 0800; Removal Reason: Per order Peripheral IV Placement Date: 02/07/20; 02/07/20 075 by 02/07 by Placement Time: 0753; Jonathan Harrington Lockwoo d, Samantha Catheter Size: 18 G; Chris.Shad, D.M.D. M, R.N. Orientation: Right; Location: Foot; Removal Date: 02/08/20; Removal Time: 2044 Arterial Line Placement Date: 02/07/20; 02/07/20 0800 by 02/06 1530 by Placemnt Time: 0800 Tyshawn Cárdenas Tamara J (created via procedure C, M.Ruma. R.N. documentation); Orientation: Left; Location: Radial; Site Prep: Chlorhexidine (Preferred); Technique: Anatomical landmarks; Insertion Attempts: 1; Securement: Securement dressing; Removal Date: 02/07/20; Removal Time: 1530; Removal Reason: Per protocol (RETIRED) Incision 02/07/20; 1143; Neck; 02/07/20 1143 by 1418 by Bilateral; 05/12/21 Nisa Coats, [facility] (Removed by background R.N. nd, Sched uling completion utility); 1418 Automa shira Batch Job (Removed by background completion utility) Closed/Suction Drain 02/07/20; 1234; Left; 02/07/20 1234 by 01/21 10/11 0700 by Leg; Bulb; 15 Fr.; Other Nisa Coats Swanso n, Katrina M, (Comment) (Removed by Sx) R.N. R.N. (RETIRED) Incision 02/07/20; 1304; Leg; 02/07/20 1304 by 1 1418 by Left; Soft Nisa Coats, Rtdm-Scgjjh-Hhn kgrou rollXeroformACE R.N. nd, Scheduling BandageCam boot; 05/12/21 Automa shira Batch Job (Removed by background completion utility); 1418 (Removed by background completion utility) Closed/Suction Drain 02/07/20; 1442; Left; 02/07/20 1442 by 01/21 12/09 0734 by Neck; Bulb; 15 Fr.; Nisa Coats Garcia, Lin dsey M, Criteria for drain R.N. R.N. removal met Surgical Airway Placement Date: 02/07/20; 02/07/20 1450 by 02/06 1517 by Placement Time: 1450; Nisa Coats Vallejo, Marvin A, Type: R.N. MAmaraD., D.M.D. Tracheostomy/cricothyroid otomy new; Brand: MediaBoost; Style: Cuffed; Size (mm): 6; Removal Date: 02/07/20; Removal Time: 1517 Surgical Airway Placement Date: 02/07/20; 02/07/20 1500 by 02/11 0730 by Placement Time: 1500 Soraida Gabriel Kunkel, Brittlyn J, (placed in OR); Type: R.N. L.R.T., RR T-FITTER PLACER Tracheostomy/cricothyroid otomy new; Brand: MediaBoost; Style: Uncuffed; Size (mm): 4; Removal Date: 02/12/20; Removal Time: 0730 documented in this encounter Social History Tobacco Use Types Packs/Day Years Used Date Smoking Tobacco: Every Day Cigarettes 1 35 S tarted: 12/14/1984 Smokeless Tobacco: Never Alcohol Use Standard Drinks/Week Comments Yes 14 (1 standard drink = 0.6 oz pure alcoh ol) Sex Assigned at Date Recorded Female 12/22/2018 12:54 PM CDT documented as of this encounter OR Notes Anesthesia Procedure Notes - Tyshawn Cárdenas M.D. - 02/07/2020 3:47 PM CDT Associated Order(s): Invasive Catheter Invasive Catheter Date/Time: 02/07/2020 8:00 AM Performed by: Tyshawn Cárdenas M.D. Authorized by: Tyshawn Cárdenas M.D. Care team members present 1. Jonathan Harrington M.D., D.MKayla 2. Tyshawn Cárdenas M.D. Location: OR PROCEDURE DETAILS: Line type: arterial Laterality: left Location: radial Age group: adult Catheter diameter: 22 Ga Technique: palpation Monitored: yes Number of attempts: 1 UNIVERSAL PROTOCOL All relevant documentation and testing were reviewed and available. All required blood products, implants, devices and or special equipment were made available as applicable. Pre-procedure verificationwas conducted and the correct site was marked if required. A fire risk assessment was done as applicable. The procedural time-out was conducted prior to performing the procedure and confirmed in a procedural pause. PRE-PROCEDURE DETAILS: Appropriate hand hygiene, gown, cap, mask, protective eyewear, sterile gloves, skin preparation, sterile drape, and strict aseptic technique were utilized as applicable for the procedure.: yes Skin preparation: chlorhexidine SEDATION / ANESTHESIA Anesthesia method: anesthesia POST-PROCEDURE DETAILS: Procedure completed successfully: yes Line secured: secured with sutureless device Chlorhexidine disc around insertion site and under catheter with slight turn: yes Complications - arterial: none ATTESTATION STATEMENT An accredited resident or fellow participated in the case, and the medical device sales consultant was present for the entire case. Anesthesia Postprocedure Evaluation - Jonathan Harrington M.D., D.MAmaraD. - 02/07/2020 3:33 PM CDT Patient: Paola Mcmullen Procedure Summary Date: 02/07/20 Room / Location: [place] [address] / [facility] in [place], [place] Anesthesia Start: 728 Anesthesia Stop: 1532 Procedures: SEGMENTAL RESECTION MANDIBLE. (Right ) NASOGASTRIC FEEDING TUBE PLACEMENT. (N/A ) TRACHEOSTOMY. (N/A ) Neck Dissection (Right ) VASCULARIZED FIBULA DESHAWN-OSSEOUSCUTANEOUS GRAFT TO MANDIBLE. (Left ) Custom plate to right mandible. (Right ) Reconstruction Neomandible With Endosseous Implant (Right Mouth) Diagnosis: Encounter For Screening For Other Viral Diseases (COVID-19) Osteomyelitis Mandible (Encounter For Screening For Other Viral Diseases (COVID-19) [Z11.59], Osteomyelitis Mandible.) Provider: Issac Woodward M.D., D.D.S.; Huseyin Bolton M.D., D.M.D. Responsible Provider: Tyshawn Cárdenas M.D. Anesthesia Type: general ASA Status: 2 Anesthesia Type: general Last vitals Vitals Value Taken Time BP 128/79 02/07/2020 3:30 PM Temp Pulse 91 02/07/2020 3:32 PM Resp 14 02/07/2020 3:32 PM SpO2 93 % 02/07/2020 3:32 PM Vitals shown include unvalidated device data. Please reference Vitals flowsheet for most recent vital signs. Anesthesia Post Evaluation Patient Disposition: general care unit Cardiovascular status: hemodynamics (HR & BP) acceptable Respiratory status: patent airway with spontaneous effort Temperature: normothermic Oxygen requirements: room air Level of consciousness: awake Pain score: pain adequately controlled and/or at baseline Post Op nausea/vomiting: none Hydration status: euvolemic Anesthesia Procedure Notes - Jonathan Harrington M.D., Sarah - 02/07/2020 8:11 AM CDTAssociated Order(s): Airway Airway Date/Time: 02/07/2020 7:32 AM Performed by: Jonathan Harrington M.D., Sarah Authorized by: Tyshawn Cárdenas M.D. Patient location during procedure: OR / Procedure Area PROCEDURE DETAILS: Mask difficulty assessment: easy mask Final airway type: video laryngoscope Laryngeal Manipulation: no Final best view of glottic structures - Cormack/Lehane Score: grade 1 ETT location: oral VL device: glide scope Bridgeview scope blade size: 3 Adult tube size: 7 Adult ETT distance at teeth/gum: 22 Oral tube type: standard ETT Cuffed: yes Number of attempt to successful placement: 1 Airway confirmation: bilateral breath sounds, positive ETCO2 and bilateral chest rise Other previous techniques attempted: none PRE PROCEDURE DETAILS: Pre evaluation for airway management: procedure Urgency: elective Preoxygenation: bag valve mask SEDATION / ANESTHESIA Anesthesia method: anesthesia POST PROCEDURE DETAILS: Procedure outcome: successful Airway event: no complications Anesthesia Preprocedure Evaluation - Tyshawn Cárdenas M.D. - 02/07/2020 7:15 AM CDT Preprocedure Anesthesia & H&P Assessment Procedure Summary Date/Time: 02/07/20 0730 Procedures: SEGMENTAL RESECTION MANDIBLE. (Right ) ESOPHAGOGASTRODUODENOSCOPY, NASOGASTRIC, NASOJEJUNAL FEEDING TUBE PLACEMENT. (N/A ) TRACHEOSTOMY. (N/A ) VASCULARIZED FIBULA DESHAWN-OSSEOUSCUTANEOUS GRAFT TO MANDIBLE. (Left ) Custom plate to right mandible. (Right ) Diagnosis: Encounter For Screening For Other Viral Diseases (COVID-19) [Z11.59] Osteomyelitis Mandible [M27.2] Pre-op diagnosis: Encounter For Screening For Other Viral Diseases (COVID-19) [Z11.59], Osteomyelitis Mandible. Location: OR [address] [place] [address] / [facility] in [place], [place] Provider: Issac Woodward M.D., D.D.S.; Huseyin Bolton M.D., D.M.D. Pertinent components of the patient's history including current problem list, medical history, surgical history, family history, social history, medications and allergies were reviewed. Present illnessand pre-op diagnosis were confirmed. The planned surgery / procedure was verified with the patient /legal guardian. The patient's general health condition remains unchanged PROBLEM LIST Relevant Problems CV (+) Hypertension Essential Primary RESP (+) Obstructive Sleep Apnea Adult OBJECTIVE PHYSICAL EXAMINATION Airway (HEENT) Mallampati: II TM Distance: >3 FB Neck ROM: Full Mouth Opening: >3 cm Cardiovascular Rhythm: Regular Rate: Normal Cardiovascular Assessment: cardiovascular normal Functional Capacity: >4 METS Pulmonary Pulmonary Assessment: Clear General / Constitutional Constitutional Assessment: Normal General State of Health:: healthy appearing and calm Neurological Neurologic Assessment:??alert Dental Dental Assessment: dentition intact ASSESSMENT / PLAN ANESTHESIA PLAN ASA: 2 Anesthesia Plan: general Patient seen and allergies reviewed, anesthesia plan and risks discussed directly with patient /legal guardian or through an freelance interpreter/translator. Risks/Benefits/Alternatives of Blood transfusion discussed with patient / legal guardian, including an opportunity to ask questions and/or decline some or all transfusion therapies. The patient / legalguardian consented to the use of all blood products, as deemed medically necessary Approval to Proceed: approved for anesthesia History reviewed. Plan GA- oral to start then trach documented in this encounter Plan of Treatment Upcoming Encounters Date Type Specialty Care Team Description 05/12/2022 Appointment Radiology Jamel Terrazas, SOCIAL WORKER, C.N.P., D. N.P. [address] [place] [address] (Wo rk) 05/12/2022 Appointment Oral and Maxillofacial Issac Woodward, Surgery Marlyn, D.D.S. [address] [place] [phone] (Wo rk) documented as of this encounter Procedures Procedure Name Priority Date/Time Associated Comments Diagnosis LDA ANE ARTERIAL LINE Routine 02/07/2020 3:47 PM Results for this INSERTION CDT procedure are i n the results section. WI ARTL CATH/CNULA Routine 02/07/2020 3:47 PM Res ults for this MONITOR PERC CDT procedure are i n the results section. LDA ANE ENDOTRACHEAL Routine 02/07/2020 8:11 AM R esults for this AIRWAY CDT procedure are i n the results section. documented in this encounter Results WI ARTL CATH/CNULA MONITOR PERC, LDA ANE ARTERIAL LINE INSERTION (02/07/2020 3:47 PM CDT) Narrative Tyshawn Cárdenas M.D. - 02/07/2020 3:47 PM CDT Tyshawn Cárdenas M.D. ? 02/07/2020 ??3:50 PM Invasive Catheter Date/Time: 02/07/2020 8:00 AM Performed by: Tyshawn Cárdenas M.D. Authorized by: Tyshawn Cárdenas M.D . Care team members present 1. Jonathan Harrington M.D., D.M.D. 2. Tyshawn Cárdenas M.D. Location: OR PROCEDURE DETAILS: Line type: arterial ?? Laterality: left Location: radial ?? Age group: adult Catheter diameter: 22 Ga Technique: palpation ?? Monitored: yes ?? Number of attempts: 1 UNIVERSAL PROTOCOL All relevant documentation and testing w ere reviewed and available. All required blood products, implants, devic es and or special equipment were made available as applicable. Pre-proced ure verification was conducted and the correct site was marked if required. A fire risk assessment was done as applicable. The procedural time-out w as conducted prior to performing the procedure and confirmed in a procedu ral pause. PRE-PROCEDURE DETAILS: Appropriate hand hygiene, gown, cap, mas k, protective eyewear, sterile gloves, skin preparation, sterile drape, and strict aseptic technique were utilized as applicable for the procedure .: yes ?? Skin preparation: chlorhexidine ?? SEDATION / ANESTHESIA Anesthesia method: anesthesia POST-PROCEDURE DETAILS: Procedure completed successfully: yes ?? Line secured: secured with sutureless de vice Chlorhexidine disc around insertion site and under catheter with slight turn: yes ?? Complications - arterial: none ATTESTATION STATEMENT An accredited resident or fellow partici pated in the case, and the medical device sales consultant was present for the entire ca se. Tyshawn Cárdenas M.D. PROCEDURE/MINOR SURGICAL ORD ERABLES LDA ANE ENDOTRACHEAL AIRWAY (02/07/2020 8:11 AM CDT) Narrative Tyshawn Cárdenas M.D. - 02/07/2020 8:11 AM CDT Jonathan Harrington M.D., ShadMKayla ? 02/07/2020 ??8:13 AM Airway Date/Time: 02/07/2020 7:32 AM Performed by: Jonathan Harrington M.D., Ruma Jackson Authorized by: Tyshawn Cárdenas M.D . Patient location during procedure: OR / Procedure Area PROCEDURE DETAILS: Mask difficulty assessment: easy mask Final airway type: video laryngoscope Laryngeal Manipulation: no ?? Final best view of glottic structures - Cormack/Lehane Score: grade 1 ETT location: oral VL device: glide scope Bridgeview scope blade size: 3 Adult tube size: 7 Adult ETT distance at teeth/gum: 22 Oral tube type: standard ETT Cuffed: yes Number of attempt to successful placemen t: 1 Airway confirmation: bilateral breath so unds, positive ETCO2 and bilateral chest rise Other previous techniques attempted: non e PRE PROCEDURE DETAILS: Pre evaluation for airway management: pr ocedure Urgency: elective Preoxygenation: bag valve mask SEDATION / ANESTHESIA Anesthesia method: anesthesia POST PROCEDURE DETAILS: ? Procedure outcome: successful ?? Airway event: no complications Tyshawn Cárdenas M.D. ANESTHESIA ORDERABLES documented in this encounter Visit Diagnoses Not on filedocumented in this encounter Administered Medications Inactive Administered Medications - up to 3 most recent administrations Medication Order MAR Action Action Date Dose Rate Site ceFAZolin injection 2,000 mg (ANCEF) Given 02/07/2020 1:52 PM CDT 2 g 2,000 mg (rounded from 2,112.5 mg = 25 mg/kg ? 84.5 kg), intravenous, Once, On Bernie 02/07/20 at 0630, For 1 dose, Intra-Op, Preoperatively within 1 hour prior to surgical incision If needed, reconstitute vial per package insert instructions. See IVAG for administration guidelines. , Drug Monitoring Program: Pharmacist to adjust medication dosing based on indication and drug clearance factors., Indications: Prophylaxis, surgical Given 02/07/2020 10:59 AM CDT 2 g Given 02/07/2020 8:09 AM CDT 2 g dexamethasone injection 10 mg (DECADRON) Given 02/07/2020 8:09 AM CDT 10 mg 10 mg, intravenous, Once in surgery, OR use only, Starting on Bernie 02/07/20 at 0628, For 1 dose, Intra-Op ePHEDrine (PF) injection Given 02/07/2020 8:21 AM CDT 5 mg intravenous, As needed, Starting on Bernie 02/07/20 at 0730, Anesthesia Intra-op Given 02/07/2020 7:30 AM CDT 10 mg fentaNYL injection (SUBLIMAZE) Given 02/07/2020 11:05 AM CDT 100 mcg intravenous, As needed, Starting on Bernie 02/07/20 at 0730, Anesthesia Intra-op Given 02/07/2020 9:01 AM CDT 50 mcg Given 02/07/2020 8:30 AM CDT 50 mcg HYDROmorphone (PF) injection (DILAUDID) Given 02/07/2020 11:36 AM CDT 0.6 mg As needed, Starting on Bernie 02/07/20 at 0833, Anesthesia Intra-op Given 02/07/2020 11:02 AM CDT 0.2 mg Given 02/07/2020 10:55 AM CDT 0.2 mg ketamine injection (KETALAR) Given 02/07/2020 11:12 AM CDT 20 mg As needed, Starting on Bernie 02/07/20 at 1112, Anesthesia Intra-op lactated ringers New Bag 02/07/2020 11:46 AM CDT intravenous, Continuous Infusion: Per Instructions PRN, Starting on Bernie 02/07/20 at 0754, Anesthesia Intra-op New Bag 02/07/2020 7:54 AM CDT lactated ringers New Bag 02/07/2020 7:38 AM CDT intravenous, Continuous Infusion: Per Instructions PRN, Starting on Bernie 02/07/20 at 0738, Anesthesia Intra-op lidocaine (PF) (cardiac) injection Given 02/07/2020 7:30 AM CDT 100 mg intravenous, As needed, Starting on Bernie 02/07/20 at 0730, Anesthesia Intra-op metroNIDAZOLE in NaCl (iso-osm) IVPB 500 mg Given 02/07/2020 1:55 PM CDT 500 mg (FLAGYL) 500 mg, intravenous, at 200 mL/hr, Administer over 30 Minutes, Once, On Bernie 02/07/20 at 0630, For 1 dose, Intra-Op, Preoperatively within 1 hour prior to surgical incision, Indications: Prophylaxis, surgical Given 02/07/2020 8:09 AM CDT 500 mg ondansetron (PF) injection (ZOFRAN) Given 02/07/2020 2:42 PM CDT 4 mg intravenous, As needed, Starting on Bernie 02/07/20 at 1442, Anesthesia Intra-op phenylephrine injection Given 02/07/2020 2:13 PM CDT 100 mcg intravenous, As needed, Starting on Bernie 02/07/20 at 1349, Anesthesia Intra-op Given 02/07/2020 1:49 PM CDT 100 mcg propofoL injection (DIPRIVAN) Given 02/07/2020 7:30 AM CDT 200 mg intravenous, As needed, Starting on Bernie 02/07/20 at 0730, Anesthesia Intra-op rocuronium injection (ZEMURON) Given 02/07/2020 1:13 PM CDT 10 mg As needed, Starting on Bernie 02/07/20 at 0809, Anesthesia Intra-op Given 02/07/2020 12:01 PM CDT 20 mg Given 02/07/2020 11:14 AM CDT 10 mg succinylcholine (PF) injection (ANECTINE ) Given 02/07/2020 7:30 AM CDT 120 mg intravenous, As needed, Starting on Bernie 02/07/20 at 0730, Anesthesia Intra-op sugammadex injection (BRIDION) Given 02/07/2020 2:47 PM CDT 170 mg As needed, Starting on Bernie 02/07/20 at 1447, Anesthesia Intra-op documented in this encounter
--- OUTSIDE RECORDS SUMMARY | 2022-05-05 14:41 | XMS_ITS | Encounter Summary ---
:1965 Author Organization [facility] Address [address] [place] [id number] Care Team Providers Name Role Phone Unavailable Primary Care Provider Unavailable Reason for Visit Reason Comments OPAT Intervention Encounter Details Date Type Department Care Team Description 02/07/2020 Clinical Communication Section of Ashwini Pierson T (Intervention) Infectious Diseases M, R.N. in [place], [place] ([facility]) [address] [place] [address] Social History Tobacco Use Types Packs/Day Years Used Date Smoking Tobacco: Every Day Cigarettes 1 35 S tarted: 12/14/1984 Smokeless Tobacco: Never Alcohol Use Standard Drinks/Week Comments Yes 14 (1 standard drink = 0.6 oz pure alcoh ol) Sex Assigned at Date Recorded Female 12/22/2018 12:54 PM CDT documented as of this encounter Miscellaneous Notes Telephone Encounter - Ashwini Pierson RAmaraN. - 02/07/2020 10:57 AM CDT SUBJECTIVE CHIEF COMPLAINT / REASON FOR CALL OPAT (Intervention) Information Discussed Killian called with handoff update stating that, per our original handoff communication, the patient was to continue IV antibiotics until surgery and the patient is currently admitted (today) for surgery. Killian states that the patient anticipates that she may be in the hospital for 5 days. OPAT monitoring by [facility] will now stop since the patient is admitted. PLAN Disposition/Recommendation: Discussed that [facility] can resume care if the patient continues on treatment with IV antibiotics when she is dismissed. Will monitor patient's progress while inpatient and will resume outpatient monitoring as indicated if/when ID is consulted with this hospitalization. Information/Education: patient/caller able to teach back Caller agreeable to plan of care: yes The following references were used: nursing clinical judgement documented in this encounter Plan of Treatment Upcoming Encounters Date Type Specialty Care Team Description 05/12/2022 Appointment Radiology Jamel Terrazas APRN, C.N.P., D. N.P. [address] [place] [phone] (Wo rk) 05/12/2022 Appointment Oral and Maxillofacial Issac Woodward Surgery M.D., D.D.S. [address] [place] [phone] (Wo rk) documented as of this encounter Visit Diagnoses Not on filedocumented in this encounter
--- OUTSIDE RECORDS SUMMARY | 2022-05-05 14:41 | XMS_ITS | Encounter Summary ---
:1965 Author Organization [facility] Address [address] [place] [id number] Care Team Providers Name Role Phone Unavailable Primary Care Provider Unavailable Encounter Details Date Type Department Care Team Description 02/07/2020 Ancillary Procedure Department of Diagnostic Radiology Social History Tobacco Use Types Packs/Day Years [...] Jamel Terrazas APRN, C.N.P., D. N.P. [address] [place] [phone] (Wo rk) 05/12/2022 Appointment Oral and Maxillofacial Issac Woodward, Leo Cline, D.D.S. [address] [phone] (Wo rk) documented as of this encounter Procedures Procedure Name Priority Date/Time Associated Diagnosis Comme nts RADIOLOGY 3D IMAGE Routine 02/07/2020 12:05 PM Re sults for this EXAM CDT procedure are i n the results section. documented in this encounter Results Face/mandible-Radiology 3D Image Exam (02/07/2020 12:05 PM CDT) Specimen (Source) Anatomical Location Collection Method / Collectio n Time Received Time / Laterality Volume Narrative 02/11/2020 9:00 AM CDT This order has been created and auto-finalized to support the import of images acquired without order. The clini nury documentation to support these images can be found on the encounter benny t produced images. Provider Not In System IMG NON RAD IMAGING PROCEDUR ES documented in this encounter Visit Diagnoses Not on filedocumented in this encounter
--- OUTSIDE RECORDS SUMMARY | 2022-05-05 14:41 | XMS_ITS | Encounter Summary ---
:1965 Author Organization [facility] Address [address] [place] [address] Care Team Providers Name Role Phone Unavailable Primary Care Provider Unavailable Reason for Referral Outpatient (Routine) - Closed Specialty Diagnoses / Procedures Referred By Contact Refer red To Contact Patria Bright P.A.- C., M.S. [facility] [address] [place] [phone] Referral ID Status Reason Start Date Expiration Date Visits Requ ested Visits Authorized [id number] Closed 02/12/2020 02/11/2021 1 1 Reason for Visit Auth/Cert Specialty Diagnoses / Procedures Referred By Contact Refer red To Contact Diagnoses Inflammatory conditions of jaws Procedures NH EXCISN BN KATIE NH EGD PERC PLC GASTROTOMY TUBE NH TRACHEOST FENESTRATION W FLAPS NH FREE OSTQ FLAP W MICROVASC GR TOE NH OSTEOTOMY MANDIBLE SEGMENTAL SEGMENTAL RESECTION MANDIBLE ESOPHAGOGASTRODUODENOSCOPY - NASOGASTRIC/NASOJEJUNAL FEEDING TUBE PLACEMENT TRACHEOSTOMY VASCULARIZED FIBULA DESHAWN-OSSEOUSCUTANEOUS GRAFT TO MANDIBLE Custom plate Referral ID Status Reason Start Date Expiration Date Visits Requ ested Visits Authorized [id number] 1 1 Encounter Details Date Type Department Care Team Description 02/07/2020 - Hospital Encounter [facility] Crissy, Osteomyel itis Mandible (Primary Dx); 02/13/2020 [facility] Bustillos M.D., Encounter F or Screening For Other Viral Diseases (COVID-19); [facility]; [facility], [address] [place] [address] Debility; Sixth Floor [place], [place] Home Enteral Nutrition; [address] [place] [phone] Dysphagia Oropharyngeal Phase [place], [place] [phone] (Work) [phone] Social History Tobacco Use Types Packs/Day Years [...] Sign Reading Time Taken Comments Blood Pressure 133/79 02/13/2020 1:23 PM CDT Pulse 77 02/13/2020 1:23 PM CDT Temperature 36.5 ??C (97.7 ??F) 02/13/2020 1:23 PM CDT Respiratory Rate 16 02/13/2020 1:23 PM CDT Oxygen Saturation 98% 02/13/2020 1:23 PM CDT Inhaled Oxygen Concentration - - Weight 83.2 kg (183 lb 6.8 oz) 02/12/2020 8:06 AM CDT Height 174 cm (5' 8.5) 02/08/2020 10:03 AM CDT Body Mass Index 27.48 02/08/2020 10:03 AM CDT documented in this encounter Discharge Summaries Mariah Alvarado, RHONDA, C.N.P., M.S. - 02/13/2020 10:58 AM CDT DISCHARGE SUMMARY BRIEF OVERVIEW Hospital: [facility] Discharge Provider: Issac Woodward M.D. Primary Team: T sole conforming machine operator - Crissy No primary care provider on [...] Neomandible With Endosseous Implant Issac Woodward M.D., Ruma.Ruma.S.Rick Barrios D.D.S.Huseyin Bolton M.D., D.M.Ruma.Saw Azevedo D.D.S. RST ROET OR DISCHARGE DISPOSITION [...] Appointments 02/20/2020 1:00 PM Issac Woodward M.D., Ruma.D.S. sole conforming machine operator For appointment details refer to your Patient [...] was taken to general nursing floor in [facility] where the hospitalization continued uneventfully. [...] encounter Discharge Instructions Patient InstructionsFern Castro M.A., CCC-GARMENT MANUFACTURER - 02/12/2020 3:19 PM CDT SPEECH-LANGUAGE PATHOLOGY [...] provided on 02/12/2020 by Fern Castro M.A., CCC-GARMENT MANUFACTURER Contact information: [facility], Department of Neurology, Discharge Instr - Isis [...] information provided on 02/10/2020 by Allie Gentile P.T. Contact information: [facility], [address] [place] [address], Discharge Instr - Junior Rodríguez RDN, KAYLA - 02/11/2020 1:47 PM CDT Summary provided by: Junior Smith RDN, LD Date completed: 02/11/2020 Oral diet:: No oral intake. Tube feeds as sole source of nutrition. Feeding tube information: Nasal Gastric 12 Guinean Who placed the tube: [facility] [place] [facility] Date of tube placement: February 07, [...] 28.1 kg/m?? ESTIMATED NEEDS: Total Calorie Needs: 7172-3659 calories/day Method to Estimate Energy Needs: [place] (Basal to Basal + 20%) Weight Used for Equation Calculations: 82.9 kg Total Protein Needs: 99 - 124 grams/day Method to Estimate Protein Needs (g/kg): 1.2 - 1.5 gm/kg Weight Used to Calculate Protein Needs (Kg): 82.9 kg Your Durable Medical Equipment (DME)/Infusion company for tube feeding supplies is: [employer]: ; [place] Clinical Liaison . Please contact this DME with questions about delivery or re-ordering your supplies and formula. Please contact the Home Enteral Nutrition team with questions about the recommended tube feeding program and care of your tube. Tuesday - Tuesday, 8 a.m. - 4 p.m. AttachmentsThe following attachments cannot be sent through Care Everywhere. Amoxicillin/Clavulanate Potassium (By mouth) (Libyan)Bacitracin (On the skin) (Libyan)Gabapentin (By mouth) (Libyan)Metoclopramide (By mouth) (Libyan) Oxycodone, Rapid Release (By mouth) (Libyan)documented in this encounter Medications at Time of [...] this encounter Progress Notes Fern Castro M.A., [facility]-GARMENT MANUFACTURER - 02/13/2020 8:30 AM CDT GARMENT MANUFACTURER followed up with patient this morning to review video swallow study results. Per video swallow study, patient's swallow function was WNL, but per OMS service patient is to remain NPO for 2 weeks post surgery. GARMENT MANUFACTURER encouraged patient to continue swallowing secretions/saliva to work swallow muscles. P atient expressed understanding of information provided. No additional speech pathology treatment is needed at this time. GARMENT MANUFACTURER will sign off. Fern Castro M.A., [facility]-GARMENT MANUFACTURER Electronically signed by Fern Castro M.A., [facility]-GARMENT MANUFACTURER at 02/13/2020 1:24 PM CDT Rick Barrios D.D.S. - 02/13/2020 6:13 AM [...] midline. Cook Doppler intact with strong biphasic signal, removed. [...] General Floor Care Please contact OMS at [phone] with questions or concerns. Adelina Xavier O.T., [facility] - 02/12/2020 10:33 AM CDT Occupational Therapy Acute Hospital Inpatient Treatment SUBJECTIVE Patient's Name: Paola Mcmullen Referring/Attending Provider: Issac Woodward M.D. Medical Diagnosis: Encounter For Screening For Other Viral Diseases (COVID-19) [Z11.59] Osteomyelitis Mandible [M27.2] Reason for Referral: Occupational Therapy Evaluation and Treatment PT eval and treat, general acute Onset [...] was discussed. Patient was left seated edge [facility], RN in room at end of session with call light in reach, all needs met and questions answered. Contact monitoring: PPE used during therapy: Therapist was wearing the following PPE throughout entire session: surgicalmask, eye protection and gloves Family member/caregiver present was wearing a mask: yes Outcome Measures Current ADL Status: [facility] Inpatient Short Form: Putting on and [...] Standardized Score: 57.54 Interpretation: Clinicians answer the -PAC Inpatient Short Form based on observed patient [...] Miri Xavier O.T., JOANNA Howard Sherman P.T., Ruma.P.T. - 02/12/2020 9:32 AM CDT Physical Therapy [...] mask during therapy session: no Outcome Measures [facility] Basic Mobility (V.2) How much help from [...] Climbing 3-5 steps with a railing?: None [facility] Basic Mobility (V.2) Raw Score: 24 [facility] Basic Mobility (V.2) Standardized Score: 57.68 Interpretation: Clinicians answer the -[facility] Inpatient Short Form based on observed patient [...] General Floor Care Please contact OMS at [phone] with questions or concerns. Joan Meng R.R.T., L.R.T. - 02/11/2020 8:49 AM CDT RT visited patient this morning, seen patient on trach mask 28%, 5L, patient was up in chair, no distress observed. Patient shared RN will be putting patient on shrimp boat captain trial, however, she is anxious. Patient is [...] General Floor Care Please contact OMS at [phone] with questions or concerns. Anand Bermeo M.D., [...] General Floor Care Please contact OMS at [phone] with questions or concerns. Rick Barrios D.D.S. [...] General Floor Care Please contact OMS at [phone] with questions or concerns. Jacinto Bright M.D., [...] the gastric body. ASSESSMENT / PLAN Paola Ava Kemi is a 54 y.o. female with medical [...] will continue to follow. Please page the [facility] [place] [phone] if there are any questions or concerns. Pilo Bright M.D., M.S. 02/09/20 Junior Smith RDN, KAYLA - 02/08/2020 10:11 AM CDT Clinical Nutrition: [...] about patient's nutritional care please contact pager [phone] on weekdays or [phone] on weekends/holidays. on weekends/holidays. NUTRITION ASSESSMENT: Ms. Mcmullen is a 54 y.o. female admitted for osteomyelitis of mandible. S/p trach, R neck dissection, segmental ressection of R mandible, Endosseous implant reconstruction of neomandible 02/06. Requested to see patient for evaluation of: [...] in EMR Estimated Needs: Total Calorie Needs: 1320-9937 calories/day Method to Estimate Energy Needs: De-[place] (Basal to Basal + 20%) Weight Used [...] Diet Progression/NPO Status, Nausea/Vomiting/Diarrhea, Enteral . Nisa Urena O.T. - 02/08/2020 8:11 AM CDT 02/08/20 [...] evaluation for dismissal needs. Today, POD 1, waitstaff captain should initiate dangling multiple times per day with patient. Electronically signed by: Mendy Urena O.T. 02/08/20 8:12 AM CDT Sheila Batista P.T., D.P.T. - 02/08/2020 7:55 AM CDT 02/08/20 0755 [...] assess for ambulation needs. Today, POD 1, waitstaff captain able to assist patient with dangling. Cary Batista P.T., D.P.T. Rick Barrios D.D.S. - 02/08/2020 6:09 AM CDT SUBJECTIVE Ms. [...] consult for antibiotics, we appreciate their expertise. Danmanuelitoe at edge of bed for activity. - [...] General Floor Care Please contact OMS at [phone] with questions or concerns. documented in this encounter Procedure Notes Ricky Concepcion R.N. - 02/13/2020 10:43 AM CDTAssociated Order(s): Remove PICC (non-tunneled) or Midline Catheter Remove PICC (non-tunneled) or Midline Catheter Date/Time: 02/13/2020 10:43 AM Performed by: Ricky Concepcion, RTammy Authorized by: Mariah Alvarado, RHONDA, C.N.P., M.S. PICC removed, 41 cm tip intact [...] this encounter Consult Notes Fern Castro M.A., [facility]-GARMENT MANUFACTURER - 02/12/2020 2:15 PM CDT Speech Pathology Dysphagia Videofluoroscopic Swallow Study (VFSS) Acute Care Session Type: Evaluation Length of session: 45 minutes SUBJECTIVE Referred By: RST sole conforming machine operator - Crissy Reason for Consult: Dysphagia History: [...] the discretion of OMS Discharge Location: Home GARMENT MANUFACTURER Ongoing Services: Ongoing formal Speech Pathology services Duration of Treatment: When goals are met Rehab Potential: Excellent Tabatha Dominique M.S., CCC-GARMENT MANUFACTURER - 02/12/2020 9:10 AM CDT Speech Pathology Clinical Swallow Evaluation Acute Care Session Type: Evaluation Length of session: 10 minutes SUBJECTIVE Referred By: RST sole conforming machine operator - Crissy Reason for Consult: Dysphagia History: [...] were answered to their satisfaction within the GARMENT MANUFACTURER scope of practice. Further recommendations to be [...] osteomyelitis Plan Duration of Treatment: LOS Sabine Gomez RDN, LD - 02/11/2020 11:21 AM CDTAssociated Order(s): [...] osteomyelitis of the mandible. Tube information: 12 mohawk nasogastric feeding tube (ENFit) Intervention Care Coordination [...] Artem. Clinical Liaison for questions or concerns [place], [place]: [phone]. Artem refill number: [phone]. Supply delivery plans: Company will coordinate delivery to patient's room prior to dismissal. Provided DME company contact information noted above and Home Enteral Nutrition contact information.Encouraged them to call with questions after dismissal: [phone] For questions about home enteral supply arrangements prior to dismissal, contact [phone]. Patient verbalized understanding of information discussed. Follow-up Plan Patient is followed in [facility] at [facility]: Follow-up plan is to contact patient/caregiver after dismissal per protocol. Isis Gentile P.T. - 02/10/2020 4:22 PM CDT Physical [...] Prior Function / Occupational Profile Level of Marathon: Independent with ADLs and functional transfers Lives [...] was wearing a mask: no Outcome Measures [facility] Basic Mobility (V.2) How much help from [...] 3-5 steps with a railing?: A Lot -[facility] Basic Mobility (V.2) Raw Score: 19 -[facility] Basic Mobility (V.2) Standardized Score: 42.48 Interpretation: Clinicians answer the -[facility] Inpatient Short Form based on observed patient [...] (min): 19 min Allie Gentile P.T. Daina Mathis O.T. - 02/09/2020 11:30 AM CDT Occupational Therapy [facility] Inpatient Evaluation/Treatment SUBJECTIVE Patient's Name: Paola [...] Prior Function / Occupational Profile Level of [place]: Independent with ADLs and functional transfers Lives [...] management of lines using fww and ttwb, pivottransfer. She was then left with all immediate [...] session: no Outcome Measures Current ADL Status: [facility] Inpatient Short Form: Putting on and [...] Standardized Score: 42.03 Interpretation: Clinicians answer the [facility] Inpatient Short Form based on observed [...] Diseases consult (hospital) Referring Provider: Mariah Alvarado, RHONDA C.N.Lucille, M.S. REASON FOR CONSULT chronic osteomyleitis mandible, [...] in January. She was admitted to [facility] on 02/06 and went to the [...] Value - Date/Time SARS Coronavirus-2, PCR Asymptomatic [[id number]] Collected: 02/04/20 1204 Lab Status: Final result [...] developed and its performance characteristics determined by [facility] in a manner consistent with CLIA requirements. Independent review by the U.S. Food and Drug Administration is pending. Visit the CDC website: https://www.cdc.gov/coronavirus/ for the most recent guidelines on Coronavirus testing. Fact Sheet for Healthcare Providers: (https://www.[employer]/it-mmfiles/ Provider_Fact_Sheet_for_[facility]_COVID-19.pdf) Fact Sheet for Patients: (https://www.[employer]/it-mmfiles/ Patient_Fact_Sheet_for_COVID-19.pdf) SARS Coronavirus 2 IgG Ab, Serum [[id number]] Collected: 02/04/20 1156 Lab Status: Final result [...] COVID-19. Testing was performed using the EUROIMMUN Fsmz-MROB-WvN-2 DELROY (IgG), which has received Emergency Use Authorization (EUA) by the U.S. Food and Drug Administration. Fact sheets for this EUA assay can be found at the following links: Factsheet for healthcare Providers: https://www.fda.gov/media/869616/download Factsheet for healthcare Patients: https://www.fda.gov/media/862412/download IMAGING Dx Abdomen Portable Anterior Posterior 1 [...] will continue to follow. Please page the [facility] 1 [place] [phone] if there are any questions or concerns. [...] PICC removed prior to DC. Scripts at [facility]. Kanu Hernandez R.RGuanaco, L.R.T. - 02/12/2020 8:56 AM CDT Patient had [...] free from fall/fall injury Outcome: Progressing Asher Peck, R.R.T., L.R.T. - 02/10/2020 6:01 PM CDT [...] 1500 Surgical Airway Type: Tracheostomy/cricothyroidotomy new Brand: Daegisley Style: Uncuffed Size (mm): 4 Length: Adult Social History Tobacco Use Smoking Status Current Every Day Smoker ??? Packs/day: 1.00 ??? Years: 35.00 ??? Pack years: 35.00 ??? Types: Cigarettes ??? Start date: 12/14/1984 Smokeless Tobacco Never Used No results for input(s): PO2 ART, PCO2 ART, PH ART in the last 24 hours. Skin integrity checked: No. Electronically signed by: Asher Peck R.R.T., AstridRGuanaco 02/10/20 6:03 PM CDT Leonidas Petit R.N. [...] 82.9 kg SpO2 96% BMI 27.38 kg/m?? NNET Radha Cooper R.N. - 02/09/2020 6:13 AM [...] monitor and report to oncoming nurse. Branden Ford, R.R.T., L.R.T. - 02/07/2020 6:07 PM CDT Patient [...] neomandible. SURGEON(S) PRIMARY SURGEON: Issac Woodward M.D., Ruma.Ruma.S. CO-PRIMARY SURGEON: Huseyin Bolton M.D., D.MCece. RESIDENTS ASSISTING: Zulema Coello D.D.S. ANESTHESIA TYPE General anesthesia. PRE-OPERATIVE DIAGNOSIS Progressive right mandibular osteomyelitis. POST-OPERATIVE DIAGNOSIS Progressive right mandibular osteomyelitis. INDICATION: Treatment. COMPLICATIONS None. DESCRIPTION OF PROCEDURE The patient was brought to operating room 312 at [facility] and was placed on the surgicaltable [...] to create asulcular incision around the right tribe teeth and right mandible. Mucoperiosteal flaps were [...] the common facial vein with a 4-mm small electric engine technician. This small electric engine technician was closed. We then released the single [...] This was completed with a 3.5- mm small electric engine technician. The small electric engine technician was closed. Multiple strip tests performed. A [employer] lantable Doppler was adapted to the peroneal [...] suture through the branches of the soleus side laster staple. Upon completing this, the venous outflow was significantly improved. We then proceeded to place a 15-Guinean round channel drain in the deepest level [...] any complications. SPECIMENS Right mandible. DRAINS 1. 15-Guinean round channel drain right neck. 2. 15-Guinean round channel drain left leg. ESTIMATED BLOOD LOSS 200 cc. TPR: 2 Issac Woodward M.D., D.D.S. CT CT Job ID: [id number] Op Note - Huseyin Bolton M.D., Ruma.MCece. - 02/07/2020 8:32 AM CDT PROCEDURE(S) 1. [...] anterior compartment was bluntly dissected utilizing an [facility] retractor and the Kittner. The interosseous membrane [...] the leg was performed after placementof a 15-Guinean round channel drain on the deep compartment. [...] tube. SPECIMENS Right mandible. DRAINS 1. A 15-Guinean round channel drain, right neck. 2. A 15-Guinean round channel drain, left leg. ESTIMATED BLOOD LOSS 200 mL. TPR: 2 Huseyin Bolton M.D., Sarah CT CT Job ID: [id number] Brief Op Note - Rick Barrios D.D.S. - 02/07/2020 8:32 AM CDT BRIEF OP NOTE Procedure(s) (LRB): SEGMENTAL RESECTION MANDIBLE. (Right) NASOGASTRIC FEEDING TUBE PLACEMENT. TRACHEOSTOMY. VASCULARIZED FIBULA DESHAWN-OSSEOUSCUTANEOUS GRAFT TO MANDIBLE. (Left) Custom plate to right mandible. (Right) Surgeon(s) and Role: Panel 1: * Issac Woodward M.D., Ruma.DAmaraS. - Primary * Rick Barrios D.D.S. Panel 2: * Huseyin Bolton M.D., Ruma.MKayla - Primary * Saw Azevedo D.D.S. Anesthesia Type General Pre-operative Diagnosis Encounter For Screening For Other Viral Diseases (COVID-19),Osteomyelitis Mandible Post-operative Diagnosis Encounter For Screening For Other Viral Diseases (COVID-19),Osteomyelitis Mandible Findings As expected. Complications None Specimens ID Type Source Tests Collected by Time A : Right mandible Bone Mandible SURGICAL PATHOLOGY, [facility] Issac Woodward M.D., [place].S. 02/07/2020 1256 Drains GI Tubes (Adults) Nasogastric [...] 15 Fr. Size (mm): Size (In): Drain [place] Size (mL): 100 mL Number of Sutures Placed: Removal Reason: Closed/Suction Drain Left Neck Bulb 15 Fr. (Active) 02/07/20 1442 Neck Placed by External Staff?: Placed by: Dr. Barrios Tube Number: Orientation: Left Drain Tube Type: Bulb Size (Fr): 15 Fr. Size (mm): Size (In): Drain [place] Size (mL): 100 mL Number of Sutures [...] Implant Name Type Inv. Item Serial No. Dough Molder Lot No. LRB No. Used Action WAX BN NBLBL 2.5GR - [id number] Hardware e.g. pins/screws/rods WAX BN NBLBL 2.5GR Surgical Specialties 1 Implanted WAX BN NBLBL 2.5GR - [id number] Hardware e.g. pins/screws/rods WAX BN NBLBL 2.5GR Surgical Specialties 1 Implanted CLP APR LGS INTNL SM 9.0 - [id number] Hardware e.g. pins/screws/rods CLP APR LGS INTNL SM 9.0 Ethicon 1 Implanted CLP APR LGS INTNL SM 9.0 - [id number] Hardware e.g. pins/screws/rods CLP APR LGS INTNL SM 9.0 Ethicon 1 Implanted CLP APR LGS INTNL SM 9.0 - [id number] Hardware e.g. pins/screws/rods CLP APR LGS INTNL SM 9.0 Ethicon 1 Implanted CLP APR LGC INTNL MD SHRT 9.75 - [id number] Hardware e.g. pins/screws/rods CLP APR LGC INTNL MD SHRT 9.75 Ethicon 1 Implanted CLP APR LGC INTNL MD SHRT 9.75 - [id number] Hardware e.g. pins/screws/rods CLP APR LGC INTNL MD SHRT 9.75 Ethicon 1 Implanted CLP APR LGC INTNL MD SHRT 9.75 - [id number] Hardware e.g. pins/screws/rods CLP APR LGC INTNL MD SHRT 9.75 Ethicon 1 Implanted CLP GEM TI MCR - [id number] Hardware e.g. pins/screws/rods CLP GEM TI MCR Synovis 1 Implanted CLP GEM TI MCR - [id number] Hardware e.g. pins/screws/rods CLP GEM TI MCR Synovis 1 Implanted CLP GEM TI MCR - [id number] Hardware e.g. pins/screws/rods CLP GEM TI MCR Synovis 1 Implanted CLP GEM TI MCR - [id number] Hardware e.g. pins/screws/rods CLP GEM TI MCR Synovis 1 Implanted CLP GEM TI MCR - [id number] Hardware e.g. pins/screws/rods CLP GEM TI MCR Synovis 1 Implanted CLP GEM TI MCR - [id number] Hardware e.g. pins/screws/rods CLP GEM TI MCR Synovis 1 Implanted CLP GEM TI MCR - [id number] Hardware e.g. pins/screws/rods CLP GEM TI MCR Synovis 1 Implanted CLP GEM TI MCR - [id number] Hardware e.g. pins/screws/rods CLP GEM TI MCR Synovis 1 Implanted CLP GEM TI MCR - [id number] Hardware e.g. pins/screws/rods CLP GEM TI MCR Synovis 1 Implanted CLP GEM TI MCR - [id number] Hardware e.g. pins/screws/rods CLP GEM TI MCR Synovis 1 Implanted IPS Implant mandible Misc Prosthesis N/A S Nelson Right 1 Implanted CLP APR LGS INTNL SM 9.0 - [id number] Hardware e.g. pins/screws/rods CLP APR LGS INTNL SM 9.0 Ethicon Right 1 Implanted CLP APR LGS INTNL SM 9.0 - [id number] Hardware e.g. pins/screws/rods CLP APR LGS INTNL SM 9.0 Ethicon Right 1 Implanted CLP APR LGS INTNL SM 9.0 - [id number] Hardware e.g. pins/screws/rods CLP APR LGS INTNL SM 9.0 Ethicon Right 1 Implanted CLP GEM TI MCR - SN/A - [id number] Hardware e.g. pins/screws/rods CLP GEM TI MCR N/A Synovis [id number] 1 Implanted CLP GEM TI MCR - SN/A - [id number] Hardware e.g. pins/screws/rods CLP GEM TI MCR N/A Synovis [id number] 1 Implanted CLP GEM TI MCR - SN/A - [id number] Hardware e.g. pins/screws/rods CLP GEM TI MCR N/A Synovis [id number] 1 Implanted CLP APR LGS INTNL SM 9.0 - [id number] Hardware e.g. pins/screws/rods CLP APR LGS INTNL SM 9.0 Ethicon 1 Implanted SCRW BRNMK PROTOTYPE SEWER 3.3X11.5 - [id number] Hardware e.g. pins/screws/rods SCRW BRNMK PROTOTYPE SEWER 3.3X11.5 [employer] [id number] 1 Implanted SCRW BRNMK PROTOTYPE SEWER 3.3X11.5 - [id number] Hardware e.g. pins/screws/rods SCRW BRNMK PROTOTYPE SEWER 3.3X11.5 [employer] [id number] 1 Implanted SCRW BRNMK PROTOTYPE SEWER 3.3X11.5 - [id number] Hardware e.g. pins/screws/rods SCRW BRNMK PROTOTYPE SEWER 3.3X11.5 [employer] [id number] 1 Implanted DRL BIT MANDIB SS 2 SCRW 1.5X5 - [id number] Hardware e.g. pins/screws/rods DRL BIT MANDIB SS 2 SCRW 1.5X5 Breanne Damon 2 Implanted SCRW MANDIB LCK MAXD 2.0X9 - [id number] Hardware e.g. pins/screws/rods SCRW MANDIB LCK MAXD 2.0X9KLBreanne Damon 6 Implanted SCRW LVL LCK MAXDRIVE 2.0X13 - [id number] Hardware e.g. pins/screws/rods SCRW LVL LCK MAXDRIVE 2.0X13 KLBreanne Damon [address] MXD [address]AND[address] TI 2X13 - [id number] Hardware e.g. pins/screws/rods SCRW MXD MANDIB ST TI [id number] Damon 4 Implanted DRL BIT MANDIB SS 2 SCRW 1.5X5 - [id number] Hardware e.g. pins/screws/rods DRL BIT MANDIB SS 2 SCRW 1.5X5 KLBreanne Damon 1 Implanted CPLR GEM VASC ANSTM 4 - [id number] Hardware e.g. pins/screws/rods CPLR GEM VASC ANSTM 4 Synovis [id number] Right 1 Implanted CPLR GEM VASC ANSTM 3 - [id number] Hardware e.g. pins/screws/rods CPLR GEM VASC ANSTM 3 Synovis [id number] Right 1 Implanted Rick Barrios D.D.S. documented in this encounter Miscellaneous Notes Hospital Course - Mariah Alvarado APRN, C.N.P., M.S. - 02/08/2020 12:52 PM CDT [...] was taken to general nursing floor in [facility] where the hospitalization continued uneventfully. She was discharged tolerating tube feedings with pain well controlled on oral medication, ambulatingindependently, and voiding spontaneously. Paola Mcmullen is returning home and received appropriate instruction and materials for ongoingcare. documented in this encounter Plan of Treatment Upcoming Encounters Date Type Specialty Care Team Description 05/12/2022 Appointment Radiology Jamel Terrazas APRN, C.N.PAmara, D. N.P. [address] [place] [phone] (Vasiliy ac) 05/12/2022 Appointment Oral and Maxillofacial Issac Woodward Surgery Marlyn, D.D.S. [address] [place] [phone] (Vasiliy ac) Scheduled Referrals Name Type Priority [...] 02/13/2020 10:43 AM Performed by: Ricky Concepcion REse. Authorized by: Mariah Alvarado APRN, C .N.P., M.S. Mariah Alvarado APRN C.N.P., M.S. PROCEDURE/MINOR BRYAN GICAL ORDERABLES Performing Organization [...] with Differential, Blood (02/12/2020 6:40 AM CDT) [facility] Method Time Signature Hemoglobin 10.1 (L) 11.6 [...] D.D.S. LAB BLOOD ADD-ON Performing Organization Address City/State/[facility] Code Phon e Number [facility] - [address] [place] [phone] [facility] [place] [place] [address] [facility] 200 [facility] (ABNORMAL) Basic Metabolic Panel (02/12/2020 6:40 [...] 02/12/2020 DTL Black/ mL/min/BSA 7:51 AM CDT Bhutanese Comment: ----ADDITIONAL INFORMATION---- Estimated GFR calculated using [...] Laterality Blood (Blood, 02/12/2020 6:40 AM 02/12/20 7:23 Venous) CDT AM CDT Anand Bermeo M.D., D.D.S. LAB BLOOD ADD-ON Performing Organization Address City/[facility] Phon e Number [facility] - [address] [place] [address] Phosphorus Inorganic (02/11/2020 7:12 AM CDT) P athologist Signature Phosphorus 2.7 2.5 - 4.5 02/11/2020 DTL (Inorganic), S mg/dL 8:29 AM CDT Specimen Anatomical Collection Method Collection Time Receive d Time (Source) Location / / Volume Laterality Blood (Blood, 02/11/2020 7:12 AM 02/11/20 8:10 Venous) CDT AM CDT Patria Bright P.A.-C., M.S. LAB BLOOD ADD-ON Performing Organization Address City/[facility] Phon e Number [facility] - [address] [place] [address] (ABNORMAL) CBC with Differential, Blood (02/10/2020 [...] Laterality Blood (Blood, 02/10/2020 7:05 AM 02/10/20 7:33 Venous) CDT AM CDT Rick Barrios D.D.SAmara LAB BLOOD ADD-ON Performing Organization Address City/State/ZIP Code Phon e Number [facility] - [address] [place], [place] [address] [facility] [place] [address] [facility] [address] Magnesium (02/10/2020 7:04 AM CDT) P athologist Signature Magnesium, S 1.9 1.7 - 2.3 02/10/2020 DTL mg/dL 8:15 AM CDT Specimen Anatomical Collection Method Collection Time Receive d Time (Source) Location / / Volume Laterality Blood (Blood, 02/10/2020 7:04 AM 06/21/20 20 7:46 Venous) CDT AM CDT Patria Bright P.A.-C. MAmaraS. LAB BLOOD ADD-ON Performing Organization Address City/State/ZIP Code Phon e Number [facility] - 200 [place], [place] [address] [facility] [place] [place] [address] [facility] [address] (ABNORMAL) Basic Metabolic Panel (02/10/2020 7:04 AM [...] 02/10/2020 DTL Black/ mL/min/BSA 8:15 AM CDT Bhutanese Comment: ----ADDITIONAL INFORMATION---- Estimated GFR calculated using [...] Laterality Blood (Blood, 02/10/2020 7:04 AM 02/10/20 20 7:46 Venous) CDT AM CDT Rikc Barrios D.D.S. LAB BLOOD ADD-ON Performing Organization Address [facility] Phon e Number [facility] - [address] Phosphorus Inorganic (02/10/2020 7:04 AM CDT) P athologist Signature Phosphorus 2.6 2.5 - 4.5 02/10/2020 DTL (Inorganic), S mg/dL 8:15 AM CDT Specimen Anatomical Collection Method Collection Time Receive d Time (Source) Location / / Volume Laterality Blood (Blood, 02/10/2020 7:04 AM 02/10/20 7:46 Venous) CDT AM CDT Patria Bright P.A.-C. MAmaraSAmara LAB BLOOD ADD-ON Performing Organization Address [facility] Phon e Number [facility] - [address] [place] [phone] [place] [address] Tracheostomy Replacement (02/09/2020 10:38 AM CDT) Narrative Anand Bermeo M.D., D.D.S. - 020 10:38 AM CDT Anand Bermeo M.D., D.D.S. ? 02/09/2020 10:40 AM Tracheostomy Replacement Date/Time: 02/09/2020 10:38 AM Performed by: Anand Bermeo M.D., D. D.S. Authorized by: Anand Bermeo M.D., D .D.S. Care team members present 1. Rick Barrios D.D.S. PROCEDURE DETAILS Tube type: ??Inner cannula Tube [...] immediate complication s ?? Anand Bermeo M.D., SusyS. PROCEDURE/MINOR SURGICAL ORDERABLES Magnesium (02/09/2020 4:09 AM CDT) athologist Signature Magnesium, S 2.1 1.7 - 2.3 02/09/2020 DTL mg/dL 5:50 AM CDT Specimen Anatomical Collection Method Collection Time Receive d Time (Source) Location / / Volume Laterality Blood (Blood, 02/09/2020 4:09 AM 02/09/20 5:27 Venous) CDT AM CDT Patria Bright P.A.-C., M.S. LAB BLOOD ADD-ON Performing Organization Address City/State/[facility] Code Phon e Number [facility] - [address] [place] [phone] [facility] [place] [address] [facility] 200 [facility] (ABNORMAL) CBC with Differential, Blood (02/09/2020 4:09 AM CDT) [facility] gist Method Time Signature Hemoglobin 9.8 [...] Laterality Blood (Blood, 02/09/2020 4:09 AM 02/09/20 5:13 Venous) CDT AM CDT Rick Barrios D.D.S. LAB BLOOD ADD-ON Performing Organization Address City/State/ZIP Code Phon e Number [facility] - [address] [place] [phone] [facility] [place] [address] [facility] 200 [facility] (ABNORMAL) Basic Metabolic Panel (02/09/2020 4:09 [...] 02/09/2020 DTL Black/ mL/min/BSA 5:50 AM CDT Bhutanese Comment: ----ADDITIONAL INFORMATION---- Estimated GFR calculated using [...] D.D.S. LAB BLOOD ADD-ON Performing Organization Address City/[facility] Phon e Number [facility] - [address] Phosphorus Inorganic (02/09/2020 4:09 AM CDT) P athologist Signature Phosphorus 2.6 2.5 - 4.5 02/09/2020 DTL (Inorganic), S mg/dL 5:50 AM CDT Specimen Anatomical Collection Method Collection Time Receive d Time (Source) Location / / Volume Laterality Blood (Blood, 02/09/2020 4:09 AM 02/09/20 5:27 Venous) CDT AM CDT Patria Bright P.A.-C., M.S. LAB BLOOD ADD-ON Performing Organization Address City/State/[facility] Phon e Number [facility] - [address] (ABNORMAL) CBC with Differential, Blood (02/08/2020 [...] Organization Address City/State/ZIP Code Phon e Number [facility] - [address] [place], [place] [address] [facility] [place] [address] [facility] [address] [facility] Basic Metabolic Panel (02/08/2020 3:48 AM [...] 02/08/2020 DTL Black/ mL/min/BSA 4:33 AM CDT Bhutanese Comment: ----ADDITIONAL INFORMATION---- Estimated GFR calculated using [...] Organization Address City/State/ZIP Code Phon e Number [facility] - [address] [place], [place] [address] [facility] [place] [address] [facility] [address] Calcium, Ionized (02/08/2020 3:48 AM CDT) P athologist Signature Calcium, 4.97 4.57 - 5.43 02/08/2020 DTL Ionized, S mg/dL 4:24 AM CDT Comment: ----ADDITIONAL INFORMATION---- This test has been modified from the man ufacturer's instructions. Its performance characteri stics were determined by [facility] in a manner co nsistent with CLIA [...] 4:17 Venous) CDT AM CDT Rick Barrios D.D.SAmara LAB BLOOD NON ADD-ON Performing Organization Address City/[facility]/ZIP [facility] Phon e Number [facility] - [address] Magnesium (02/08/2020 3:48 AM CDT) P athologist Signature Magnesium, S 2.0 1.7 - 2.3 02/08/2020 DTL mg/dL 4:33 AM CDT Specimen Anatomical Collection Method Collection Time Receive d Time (Source) Location / / Volume Laterality Blood (Blood, 02/08/2020 3:48 AM 02/08/20 4:17 Venous) CDT AM CDT Rick Barrios D.D.S. LAB BLOOD ADD-ON Performing Organization Address City/[facility]/ZIP Code Phon e Number [facility] - [address] Phosphorus Inorganic (02/08/2020 3:48 AM CDT) P athologist Signature Phosphorus 3.2 2.5 - 4.5 02/08/2020 DTL (Inorganic), S mg/dL 4:33 AM CDT Specimen Anatomical Collection Method Collection Time Receive d Time (Source) Location / / Volume Laterality Blood (Blood, 02/08/2020 3:48 AM 02/08/20 20 4:17 Venous) CDT AM CDT Rick Barrios D.D.SAmara LAB BLOOD ADD-ON Performing Organization Address City/[facility]/ZIP Code Phon e Number [facility] - 200 [place], [place] [address] [facility] [place] [address] [facility] [address] DX Abdomen Portable Anterior Posterior 1 [...] the gastric bod y. Issac Woodward M.D., D.D.S. IMG DIAGNOSTIC IMAGING [place] OCEDURES Surgical Pathology, Frozen Lab (02/07/2020 12:56 PM CDT) Component Value Ref Test Analysis Performed At [facility] gist Range Method Time Signature 02/12/2020 [facility] 2:35 PM CDT Participated in Torsten All, 02/12/2020 [facility] the M.B.B.S.-Pathol 2:35 PM CDT Interpretation ogy Resident Report Rojelio GarnerB.B.S., Ph.D. [phone] 02/12/2020 [facility] electronically I verify that I have examined all relevant slides/ma terials 2:35 PM CDT signed by for the specimen(s) and rendered or confirmed the diagnosis. Gross Description A. ??Received fresh labeled right mandible i s a 10.5 x 3.5 02/12/2020 [facility] x 1.5 cm right mandible with two teeth (molars). 2:35 PM CDT Sectioning demonstrates unremarkable bone. ??Tar Heater tissue submitted for permanent sections, following decalcification. Grossed by [facility]. Block Summary A Right mandible 02/12/2020 [facility] [...] is no t available. Issac Woodward M.D., D.D.SAmara LAB SURG PATH ORDERABLES Performing Organization Address City/State/[facility] Code Phon e Number [facility] - [address] [place], [place] [address] [place] [address] [facility] [address] documented in this encounter Visit Diagnoses Diagnosis Osteomyelitis Mandible - Primary Encounter For Screening For Other Viral Diseases (COVID-19) Decline Functional Status Debility Home Enteral Nutrition Dysphagia Oropharyngeal Phase Hypertension Essential Primary Anemia Posthemorrhagic Acute (Blood Loss Anemia) documented in this encounter Admitting Diagnoses Diagnosis Encounter For Screening For Other Viral Diseases (COVID-19) Osteomyelitis Mandible documented in this encounter Administered Medications Inactive Administered Medications - up to 3 most recent administrations Medication Order MAR Action Action Date Dose Rate Site acetaminophen injection 1,000 New Bag 02/07/2020 4:12 PM 1,000 mg 400 mL/hr mg (OFIRMEV) CDT 1,000 mg, intravenous, at 400 mL/hr, Administer over 15 Minutes, Once as needed, If patient has not received in previous 6 hours, Starting on Bernie 02/07/20 at 1529, For 1 dose, PACU (only), Oral unless RASS less than -1 or nausea/vomiting. Do not use if given in last 6 hours, Restriction Criteria (Pharmacy will review and approve if criteria met): Unable to take or tolerate medications administered via the enteral route or orally (not just NPO) acetaminophen tablet 1,000 mg (TYLENOL) Given 02/13/2020 9:50 AM CDT 1,000 mg 1,000 mg, gastric tube, Every 6 hours, First dose on Bernie 02/07/20 at 2200, Give via G-tube Given 02/13/2020 5:02 AM CDT 1,000 mg Given 02/12/2020 9:24 PM CDT 1,000 mg aspirin tablet 325 mg Given 02/07/2020 7:32 PM CDT 325 mg 325 mg, gastric tube, Once, On Tue02/07/20 at 2000, For 1 dose, Give at 20:00. If post-operative arrival to floor is after this time, give immediately upon floor arrival. aspirin tablet 325 mg Given 02/08/2020 2:35 PM CDT 325 mg 325 mg, gastric tube, Once, On Tue02/08/20 at 1500, For 1 dose aspirin tablet 325 mg Given 02/13/2020 9:50 [...] Given 02/12/2020 8:51 AM CDT 1 packet barium 40 % (w/v) oral powder for suspension Given 0 2:41 PM CDT 60 mL (VARIBAR THIN LIQUID) oral, Code/trauma/sedation medication, Starting on Tue02/12/20 at 1441 barium 40 % (w/v), 30% (w/w) paste (VARIBAR Given 02/12/2020 2:3 9 PM CDT 5 mL PUDDING) oral, Code/trauma/sedation medication, Starting on Tue02/12/20 at 1439 carBAMazepine tablet 300 mg (TEGretol) Given 02/07/2020 9:48 PM CDT 300 mg 300 mg, oral, 2 times daily, First dose on Tue02/07/20 at 2100 ceFAZolin in dextrose (iso-os) IVPB 2 New Bag 02/13/2020 5:03 AM CDT 2 g 200 mL/hr g (ANCEF) 2 g, intravenous, at 200 mL/hr, Administer over 30 Minutes, Every 8 hours, First dose on Tue02/07/20 at 2200, Start within 8 hours of last IV dose. premix bag, Drug Monitoring Program: Pharmacist to adjust medication dosing based on indication and drug clearance factors., Indications: Prophylaxis, surgical New Bag 02/12/2020 9:24 PM CDT 2 g 200 mL/hr New Bag 02/12/2020 2:49 PM CDT 2 g 200 mL/hr enoxaparin injection 40 mg Given 02/07/2020 7:32 PM CDT 40 mg Right Upper Abdomen (LOVENOX) 40 mg, subcutaneous, Once, On Bernie 02/07/20 at 2000, For 1 dose, Give at 20:00. If post-operative arrival to floor is after this time, give immediately upon floor arrival., Drug Monitoring Program: Pharmacist to adjust medication dosing based on indication and drug clearance factors. enoxaparin injection 40 mg Given 02/08/2020 2:24 PM CDT 40 mg Left Lower Abdomen (LOVENOX) 40 mg, subcutaneous, Once, On Tue02/08/20 at 1500, For 1 dose enoxaparin injection 40 mg Given 02/13/2020 9:50 AM CDT 40 mg Right Lower Abdomen (LOVENOX) 40 mg, subcutaneous, Daily, First dose on Tue02/09/20 at 0900 Given 02/12/2020 8:51 AM CDT 40 mg Right Lower Abdomen Given 02/11/2020 8:58 AM CDT 40 mg Right Lower Abdomen fentaNYL injection 25 mcg (SUBLIMAZE) Given 02/07/2020 5:14 PM CDT 25 mcg 25 mcg, intravenous, Every 2 min PRN, moderate pain or score 4-6 of 10, severe pain or score 7-10 of 10, Starting on Bernie 02/07/20 at 1529, PACU (only), Up to maximum total dose of 100 mcg Given 02/07/2020 4:55 PM CDT 25 mcg Given 02/07/2020 4:30 PM CDT 25 mcg gabapentin capsule 100 mg (NEURONTIN) Given 02/07/2020 9:46 PM CDT 100 mg 100 mg, oral, 3 times daily, First dose on Bernie 02/07/20 at 2100 gabapentin solution 100 mg (NEURONTIN) Given 02/13/2020 5:02 AM CDT 100 mg 100 mg, gastric tube, Every 8 hours scheduled, First dose on Tue02/08/20 at 1400 Given 02/12/2020 9:41 PM CDT 100 mg Given 02/12/2020 1:41 PM CDT 100 mg HYDROmorphone (PF) injection 0.4 mg Given 02/07/2020 9:44 PM CDT 0.4 mg (DILAUDID) 0.4 mg, intravenous, Every 4 hours PRN, severe pain or score 7-10 of 10, Starting on Bernie 02/07/20 at 2102 iohexoL 300 mg iodine/mL solution (OMNIP AQUE) Given 02/12/2020 2:41 PM CDT 30 mL Code/trauma/sedation medication, Starting on Tue02/12/20 at 1441 lactated ringers Rate/Dose Verify 02/12/2020 6:00 AM CDT 20 mL/hr 20 mL/hr 20 mL/hr, intravenous, Continuous, Starting on Bernie 02/07/20 at 1815 Rate/Dose Verify 02/12/2020 3:00 AM CDT 20 mL/hr 20 mL/hr Rate/Dose Verify 02/12/2020 1:17 AM CDT 20 mL/hr 20 mL/hr lactated ringers New Bag 02/07/2020 5:06 PM CDT 20 mL/hr 20 mL/hr 20 mL/hr, intravenous, Continuous, Starting on Bernie 02/07/20 at 1430, PACU & Post-Op Continued from OR 02/07/2020 3:23 PM CDT 20 mL/hr 20 mL/hr lansoprazole suspension 30 mg (PREVACID) Given 02/13/2020 5:04 AM CDT 30 mg 30 mg, gastric tube, Daily before breakfast, First dose on Tue02/08/20 at 0700 Given 02/12/2020 6:33 AM CDT 30 mg Given 02/11/2020 6:23 AM CDT 30 mg LORazepam injection 0.5 mg (ATIVAN) Given 02/11/2020 9:58 PM CDT 0.5 mg 0.5 mg, intravenous, Every 4 hours PRN, anxiety, anxiety with capping trial, Starting on 02/11/20 at 0642, For intravenous use, dilute with equal volume of 0.9% NS metoclopramide solution 10 mg (REGLAN) Given 02/13/2020 [...] Given 02/10/2020 4:18 AM CDT 5 mg sennosides-docusate sodium 8.6-50 mg per Given 02/09/2020 [...] 02/12/2020 02/13/2020 acetaminophen tablet 1,000 mg (TYLENOL) 9618 (Given - Provider: Perla Duckworth RAmaraN.)1057 (Given - Provider: Ericka Hitchcock R.N.)1616 (Given - Provider: Coby Jefferson R.N.)2156 (Given - Provider: Hellen ToneyN.) 0404 (Given - Provider: Hellen ToneyN.)1020 (Given - Provider: Ericka Hitchcock R.N.)1620 (Given - Provider: Coby Jefferson R.N.)2124 (Given - Provider: Coby Jefferson R.N.) 0502 (Given - Provider: Hellen ParekhNAmara)0950 (Given - Provider: Ericka Hitchcock R.N.) 1,000 [...] Hitchcock R.N.)2111 (Given - Provider: Myesha Fish RTammy) 0851 (Given - Provider: Ericka Hitchcock R.N.)212 (Given - Provider: Coby Jefferson R.N.) 0951 (Given - Provider: Ericka Hitchcock R.N.) 1 packet (1 application), topical, 2 pilo es daily, First dose on Tue02/08/20 at 0900, Apply to neck incision ceFAZolin in dextrose (iso-os) IVPB 2 g (ANCEF) 0620 ( New Bag - Provider: Hellen NegronNAmara)1344 (New Bag - Provider: Ericka Hitchcock R.N.)2159 (New Bag - Provider: Myesha Fish R.N.) 0535 (New Bag - Provider: Myesha Fish RAmaraNAmara)1449 (New Bag - Provider: Ericka Hitchcock R.N.)2124 (New Bag - Provider: Coby Jefferson R.N.) 0503 (New Bag - Provider: Yoko polanco RAmaraNAmara) 2 g, intravenous, at 200 mL/hr, Administ [...] 0623 (Given - P rovider: Perla Duckworth RAmaraN.)1340 (Given - Provider: Ericka Hitchcock R.N.)2112 (Given - Provider: Myesha Fish RAmaraN.) 0536 (Given - Provider: Myesha Fish R.N.)1341 (Given - Provider: Ericka Hitchcock R.N.)2141 (Given - Provider: Coby Jefferson RAmaraNAmara) 0502 (Given - Provider: Yoko Roberts R.NAmara) 100 mg, gastric tube, Every 8 hours sche duled, First dose on Tue02/08/20 at 1400 lansoprazole suspension 30 mg (PREVACID) 0623 (Given - Provider: Perla Duckworth RAmaraN.) 0633 (Given - Provider: Myesha Fish R.NAmara) 0504 ( Given - Provider: Yoko Roberts R.N.) 30 mg, gastric tube, Daily before breakfast, First dose on F 02/08/20 at 0700 metoclopramide solution 10 mg (REGLAN) 0623 (Given - P rovider: Hellen NegronNAmara)1057 (Given - Provider: Ericka Hitchcock R.N.)1617 (Given - Provider: Hellen HowellNAmara)211 (Given - Provider: Hellen ToneyNAmara) 0633 (Given - Provider: Myesha Fish R.N.)1020 (Given - Provider: Ericka Hitchcock R.N.)1621 (Given - Provider: Hellen HowellN.)2124 (Given - Provider: Coby Jefferson R.N.) 0505 (Given - Provider: Hellen ParekhNAmara)1052 (Given - Provider: Ericka Hitchcock R.N.) 10 mg, gastric tube, 4 times daily befor e meals and bedtime, First dose on [place] 02/10/20 at 1100 metroNIDAZOLE in NaCl (iso-osm) IVPB 500 mg (FLAGYL) 0 655 (New Bag - Provider: Perla Duckworth R.N.)1443 (New Bag - Provider: Ericka Hitchcock R.N.)2111 (New Bag - Provider: Hellen ToneyNAmara) 0633 (New Bag - Provider: Myesha Fish RAmaraNAmara)1330 (New Bag - Provider: Ericka Hitchcock R.N.)2217 (New Bag - Provider: Coby Jefferson R.N.) 0505 (New Bag - Provider: Yoko polanco R.NAmara) 500 mg, intravenous, at 200 mL/hr, Admin ister over 30 Minutes, Every 8 hours, First dose on Bernie 02/07/20 at 2200, Start within 8 hours of last IV dose., Indications: Prophylaxis, surgical sennosides-docusate sodium 8.6-50 mg per tablet 2 tabl et (SENOKOT-S) 2107 (Not Given - Provider: Myesha Fish R.N. - Reason: Patient/family refused) 221 (Not Given - Provider: Coby L Stene, R.N. - Reason: Patient/family refused) 2 tablet, gastric tube, Daily at bedtime , First dose on Bernie 02/07/20 at 2100, While on opioids. Hold for diarrhea. Continuous Medication Order 02/11/2020 02/12/2020 02/13/2020 lactated ringers 0624 (Rate/Dose Change - Pro vider: Perla Duckworth R.N.)1626 (Rate/Dose Verify - Provider: Coby Jefferson R.N.)1941 (Rate/Dose Verify - Provider: Myesha Fish R.N.) 0117 (Rate/Dose Verify - Provider: Chapin Fish R.N.)0300 (Rate/Dose Verify - Provider: Myesha Fish R.N.)0600 (Rate/Dose Verify - Provider: Myesha Fish R.N.) 20 mL/hr, intravenous, Continuous, Starting on Bernie 02/07/20 at 18 15 PRN Medication Order 02/11/2020 02/12/2020 02/13/2020 barium 40 % (w/v) oral powder for suspension (VARIBAR THIN L IQUID) (COMPLETED) 1441 (Given - Provider: Zeferino Fox M.D. - Comment: Given by Fern Tiwari M.A., [facility]-[employer] MANUFACTURER) oral, Code/trauma/sedation medication, Starting on Tue02/12/20 a t 1441 barium 40 % (w/v), 30% (w/w) paste (VARIBAR PUDDING) (COMPLE AYAN) 1439 (Given - Provider: Zeferino Fox M.D. - Comment: Given by Fern Castro M.A., [facility]-[employer] [employer]) oral, Code/trauma/sedation medication, Starting on Tue02/12/20 a [...] - Comment: Given by Fern Castro M.A., [facility]) Code/trauma/sedation medication, Starting on Tue02/12/20 at 1441 LORazepam injection 0.5 mg (ATIVAN) (CANCELED) 8 (G iven - Provider: Myesha Fish RAmaraNAmara) 0.5 mg, intravenous, Every 4 hours [...] Perla Duckworth R.N.)0858 (Given - Provider: Ericka Hitchcock R.N.)1445 (Given - Provider: Ericka Hitchcock R.N.)1940 (Given - Provider: Myesha Fish R.N.) 0114 (Given - Provider: Myesha Fish R.N.)0633 (Given - Provider: Myesha Fish R.N.)2124 (Given - Provider: Coby Jefferson R.N.) 0113 (Given - Provider: Yoko Roberts RAmaraN.)0502 (Given - Provider: Phillip Parekh.N.)0910 (Given - Provider: Keiry Phoenix RAmaraNAmara)1320 (Given - Provider: Ericka Hitchcock R.N.) 10 mg, oral, Every 4 hours PRN, severe p ain or score 7-10 of 10, Starting on Bernie 02/07/20 at 1814 oxyCODONE solution 5 mg (ROXICODONE) 134 1 (Given - Provider: Ericka Hitchcock RAmaraNAmara)1727 (Given - Provider: Coby Jefferson R.N.) 5 mg, oral, Every 4 hours PRN, [...]
--- OUTSIDE RECORDS SUMMARY | 2022-05-05 14:42 | XMS_ITS | Encounter Summary ---
:1965 Author Organization [facility] Address [address] [place] [address] Care Team Providers Name Role Phone Unavailable Primary Care Provider Unavailable Encounter Details Date Type Department Care Team Description 02/02/2019 Clinical Communication Division of Oral and Crissy, Issac Maxillofacial Surgery in [place]n , D.D.S. [place], [place] [address] [facility] [address] [place] [phone] Social History Tobacco Use Types Packs/Day Years Used Date Smoking Tobacco: Every Day Cigarettes 1 35 S tarted: 12/14/1984 Smokeless Tobacco: Never Alcohol Use Standard Drinks/Week Comments Yes 14 (1 standard drink = 0.6 oz pure alcoh ol) Sex Assigned at Date Recorded Female 12/22/2018 12:54 PM CDT documented as of this encounter Miscellaneous Notes Telephone Encounter - Jayla Vargas L.D.A. - 02/02/2019 9:26 AM CDT KE did a note to you Telephone Encounter - Alyssa Salas - 02/02/2019 9:10 AM CDT Patient called, requesting we give her a letter for work that she Is okay to return and that her condition is not contagious. Otherwise her employer will not let her come back. If you have any questions please feel free to give her a call. Thank you. documented in this encounter Plan of Treatment Upcoming Encounters Date Type Specialty Care Team Description 05/12/2022 Appointment Radiology Jamel Terrazas APRN, C.N.P., D. N.P. [address] [place] [phone] (Wo rk) 05/12/2022 Appointment Oral and Maxillofacial Issac Woodward, Surgery Marlyn, D.D.S. [address] [place] [phone] (Wo rk) documented as of this encounter Visit Diagnoses Not on filedocumented in this encounter
--- OUTSIDE RECORDS SUMMARY | 2022-05-05 14:42 | XMS_ITS | Encounter Summary ---
:1965 Author Organization [facility] Address [address] [place] [address] Care Team Providers Name Role Phone Unavailable Primary Care Provider Unavailable Encounter Details Date Type Department Care Team Description 01/15/2020 Orders Only Section of Infectious Rasheed Hernandez on Diseases in Mai Pacheco M.D. [place] [address] [place] [phone] Social History Tobacco Use Types Packs/Day [...] Jamel Terrazas APRN, C.N.P., D. N.P. [address] [place] [phone] (Wo rk) 05/12/2022 Appointment Oral and Maxillofacial Issac Woodward, Surgery Marlyn, D.D.S. [address] [place] [phone] (Wo rk) documented as of this encounter Visit Diagnoses Not on filedocumented in this encounter
--- OUTSIDE RECORDS SUMMARY | 2022-05-05 14:42 | XMS_ITS | Encounter Summary ---
:1965 Author Organization [facility] Address [address] [place] [address] Care Team Providers Name Role Phone Unavailable Primary Care Provider Unavailable Reason for Visit Reason Onset Date Comments OPT Intervention 12/29/2018 Encounter Details Date Type Department Care Team Description 12/29/2018 Clinical Communication Section of reginaldo Lakshmi OPT Intervention Infectious Diseases M, R.N. in [place], [address] [place] [address] [address] [facility] [phone] [place], [place] [phone] (Work) [phone] Social History Tobacco Use Types Packs/Day Years Used Date Smoking Tobacco: Every Day Cigarettes 1 35 S tarted: 12/14/1984 Smokeless Tobacco: Never Alcohol Use Standard Drinks/Week Comments Yes 14 (1 standard drink = 0.6 oz pure alcoh ol) Sex Assigned at Date Recorded Female 12/22/2018 12:54 PM CDT documented as of this encounter Miscellaneous Notes Telephone Encounter - Fabi Wakefield, Jose C, R.Ph. - 12/29/2018 3:44 PM CDT Spoke with Ms. Mcmullen. She is using acetaminophen 1 gram q6 hours scheduled along with ibuprofen. I asked her to cut down to 500 mg q6 hours of the acetaminophen given her ALT. This should help with the ALT trend, but she is requiring a good amount of need for pain control and thus it might be challe nging to try to stop the APAP entirely. Continue with ertapenem and next lab check at the scheduled time to reassess the ALT response. Counseling on avoiding alcohol and supplements. She expressed understanding and had no further questions. Telephone Encounter - Fabi Wakefield, PharmAmaraD., R.Ph. - 12/29/2018 11:52 AM CDT Mild elevation in ALT, called patient, left message for call back to discuss. This type of mild elevation is often due to acetaminophen use post hospital stay, and plan to ask about/ general counsel on usage with call back. In either event, ertapenem being the sole limo driver is less likelyand not high enough elevation we would consider changing therapy at this point. Continue current OPAT plan for antibiotics and monitoring. Telephone Encounter - Lakshmi Clifton R.N. - 12/29/2018 11:20 AM CDT OPAT NOTE Infusion Provider: [facility], phone: [phone] Antimicrobial(s) currently prescribed: See medication list in Epic. Tentative stop date: 01/25/2019; final stop date to be determined at follow up visit. Date of ID follow up appt: 12/27/2018. OPAT labs: were received by fax. 12/21/2018 12/28/2018 WBC 5.8 6.0 ANC 3300 3500 HGB 13.1 12.5 Platelets 274 298 ALT 68 (0-50) 92 Creatinine 0.79 0.78 Patient's antibiotic therapy does not require drug level monitoring (see above). Interpretation and action: I left a message for the patient to call back regarding her ALT. Will send ALT to pharmacist for review. documented in this encounter Plan of Treatment Upcoming Encounters Date Type Specialty Care Team Description 05/12/2022 Appointment Radiology Jamel Terrazas, RHONDA, C.N.P., D. N.P. [address] [place] [phone] (Wo rk) 05/12/2022 Appointment Oral and Maxillofacial Issac Woodward, Surgery M.D., D.D.S. [address] [place] [phone] (Wo rk) documented as of this encounter Visit Diagnoses Not on filedocumented in this encounter
--- OUTSIDE RECORDS SUMMARY | 2022-05-05 14:42 | XMS_ITS | Encounter Summary ---
:1965 Author Organization [facility] Address [address] [place] [address] Care Team Providers Name Role Phone Unavailable Primary Care Provider Unavailable Reason for Visit MRI/CAT/PET Scan (Routine) - Closed Specialty Diagnoses / Procedures Referred By Contact Refer red To Contact Radiology Diagnoses Osteomyelitis Mandible Chronic Issac Woodward M.D., [facility] Procedures CT Neck Soft Tissue with IV Contrast CT Head Neck with IV Contrast D.D.S. [address] [place] [phone] Referral ID Status Reason Start Date Expiration Date Visits Requ ested Visits Authorized [id number] Closed 01/08/2020 1 1 Encounter Details Date Type Department Care Team Description 01/15/2020 Hospital Encounter Department of Matteo Woodward Mandible Radiology, Ernst Raymundo M.D., [facility], in D.D.S. [place], [place] [address] [facility] [address] [place] [phone] Social History Tobacco Use Types Packs/Day Years [...] - - Height 175.3 cm (5' 9) 01/15/2020 7:53 AM CDT Body Mass Index - - documented in this encounter Medications at Time of Discharge Medication Sig Dispensed Refills Start Date End Date acetaminophen (TYLENOL) Take 2 tablets 0 12/16/19 19 02/13/2020 500 mg tablet (1,000 mg total) by mouth every 6 (six) hours. calcium carbonate Take 500 mg of 0 (OS-THADDEUS) 1,250 mg (500 mg calcium by mouth calcium) tablet daily with breakfast. carBAMazepine (TEGretol) Take 300 mg by 2 019 02/13/2020 200 mg tablet mouth 2 (two) times a day. cholecalciferol (VITAMIN Take 5,000 Units 0 02/13/2020 D3) 5,000 Unit capsule by mouth daily. ertapenem 1 g in NaCl Infuse 1 g into a 27 each 0 020 02/13/2020 0.9% 100 mL IVPB venous catheter daily for 27 days. End date: fish oil 500 mg capsule Take 500 mg by 0 02/13/2020 mouth daily. lisinopril Take 10 mg by 2 11/20/2018 02/13/2020 (PRINIVIL,ZESTRIL) 10 mg mouth daily. tablet multivitamin capsule Take 1 capsule by 0 02/13/2020 mouth daily. oxyCODONE (ROXICODONE) 5 Take 1 tablet (5 20 tablet 0 12/1502/13/2020 mg immediate release mg total) by mouth tabletIndications: Acute every 4 (four) Pain Exception hours as needed for pain or severe pain or score 7-10 of 10 Indication: Acute Pain Exception. sennosides-docusate Take 2 tablets by 0 9 02/13/2020 sodium (SENNA WITH mouth at bedtime. DOCUSATE SODIUM) 8.6-50 Use while taking mg per tablet narcotics and until bowel movements normal. Hold for diarrhea. sodium chloride 0.9 % Infuse 5 mL into a 100 Syringe 1 01/1502/13/2020 injection venous catheter as needed for line care. documented as of this encounter Nursing Notes Alisa Dhaliwal R.N. - 01/15/2020 8:10 AM CDT A review of the patients current medications was completed under the context of radiology care priorto contrast/medication administration. MLB documented in this encounter Plan of Treatment Upcoming Encounters Date Type Specialty Care Team Description 05/12/2022 Appointment Radiology Jamel Terrazas APRN, C.N.PAmara, D. N.P. [address] [place] [phone] (Wo rk) 05/12/2022 Appointment Oral and Maxillofacial Issac Woodward, Surgery Marlyn, D.D.S. [address] [place] [phone] (Wo rk) documented as of this encounter Procedures Procedure Name Priority Date/Time Associated Diagnosis Comme nts CT NECK SOFT RAD - Routine 01/15/2020 8:25 Osteomyelitis Results fo r this TISSUE WITH IV (most inpatients AM CDT Mandible Chronic proce dure are in CONTRAST and all the results outpatients) section. documented in this encounter Results CT Neck Soft Tissue with IV Contrast (01/15/2020 8:25 AM CDT) Anatomical Region Laterality Modality Neck, Neuroradiology RST LOS, N/A Computed T omography, Computed Neuroradiology ARZ LOS, Neuroradiology T omography FLA LOS Specimen (Source) Anatomical Collection Method Collection Time Re ceived Time Location / / Volume Laterality 01/15/2020 8:33 AM CDT Impressions 01/15/2020 9:27 AM CDT Mildly increased areas of lucency in the posterior right mandible and mildly increased overlying soft tiss ue edema/inflammation. Findings suggestive of mild worsening of known ch ronic osteomyelitis. Narrative 01/15/2020 9:27 AM CDT EXAM: CT NECK SOFT TISSUE WITH IV CONTRAST COMPARISON: Maxillofacial CT 05/30/2019 FINDINGS: Patient has a history of chron ic posterior right mandibular osteomyelitis and underwent surgical becky ridement on 12/14/2018. Compared to 05/30/2019, there are mildly increased areas of osseous lucency near the angle of the right mandible surround ing the mandibular canal (for example series 7, images 245 and 219). Slightly increased periosteal thickening/reaction laterally (series 7, image 244). Mild co rtical irregularity along the lateral margins of the bone have not significant ly changed since previously. Mild overlying soft tissue edema/inflammation has mildly increased (series 7 image 10) without evidence of focal fluid jose ection. Otherwise normal soft tissues of the nec k. Normal visualized intracranial contents. Bilateral mandibular elia. Wel l aerated sinuses with trace scattered mucosal thickening. Leftward nasal septa l deviation with osseous spur. Clear mastoid air cells. Procedure Note Óscar Ha M.D. - 01/15/2020Form atting of this note might be different from the original. EXAM: CT NECK SOFT TISSUE WITH IV CONTRA ST COMPARISON: Maxillofacial CT 05/30/2019 FINDINGS: Patient has a history of chron ic posterior right mandibular osteomyelitis and underwent surgical becky ridement on 12/14/2018. Compared to 05/30/2019, there are mildly increased areas of osseous lucency near the angle of the right mandible surround ing the mandibular canal (for example series 7, images 245 and 219). Slightly increased periosteal thickening/reaction laterally (series 7, image 244). Mild co rtical irregularity along the lateral margins of the bone have not significant ly changed since previously. Mild overlying soft tissue edema/inflammation has mildly increased (series 7 image 10) without evidence of focal fluid jose ection. Otherwise normal soft tissues of the nec k. Normal visualized intracranial contents. Bilateral mandibular elia. Wel l aerated sinuses with trace scattered mucosal thickening. Leftward nasal septa l deviation with osseous spur. Clear mastoid air cells. IMPRESSION: Mildly increased areas of lucency in the posterior right mandible and mildly increased overlying soft tiss ue edema/inflammation. Findings suggestive of mild worsening of known ch ronic osteomyelitis. Issac Woodward M.D., D.D.S. IMG CT PROCEDURES documented in this encounter Visit Diagnoses Diagnosis Osteomyelitis Mandible Chronic documented in this encounter Administered Medications Inactive Administered Medications - up to 3 most recent administrations Medication Order MAR Action Action Date Dose Rate Site iohexoL 300 mg iodine/mL solution Given 01/15/2020 8:10 AM CDT 1 00 mL 1-200 mL (OMNIPAQUE) 1-200 mL, intravenous, Once in imaging, contrast, Starting on Tue01/15/20 at 0753, For 1 dose, Imaging Protocol Orders, Dose per Radiant Medication Guidelines sodium chloride (PF) 0.9 % injection 1-1 00 mL Given 01/15/2020 8:09 AM CDT 35 mL 1-100 mL, intravenous, Once, On Tue01/15/20 at 0800, For 1 dose, Imaging Protocol Orders documented in this encounter
--- OUTSIDE RECORDS SUMMARY | 2022-05-05 14:42 | XMS_ITS | Encounter Summary ---
:1965 Author Organization [facility] Address [address] [place] [address] Care Team Providers Name Role Phone Unavailable Primary Care Provider Unavailable Encounter Details Date Type Department Care Team Description 01/17/2020 Ancillary Procedure Department of Brant Woodward Mandible Radiology in Issac Raymundo M.D.[place], [place] D.ShadS. [address] [place] [address] [place] [phone] Social History Tobacco Use Types Packs/Day Years [...] Jamel Terrazas APRN, C.N.P., D. N.P. [address] [place] [phone] (Wo rk) 05/12/2022 Appointment Oral and Maxillofacial Issac Woodward Surgery M.D., D.D.S. [address] [place] [phone] (Wo rk) documented as of this encounter Procedures Procedure Name Priority Date/Time Associated Comments Diagnosis DX ANATOMIC RAD - Routine 02/07/2020 9:00 Osteomyelitis Results fo r MODELING (most inpatients AM CDT Mandible Chronic this pr ocedure CONSULTATION and all are in the outpatients) results section. documented in this encounter Results DX Anatomic Modeling Consultation (02/07/2020 9:00 AM CDT) Anatomical Region Laterality Modality Body, Neuroradiology RST LOS, Abdominal RST LOS, N/A Digital Radiography Cardiovascular RST LOS, Musculoskeletal RST LOS, Abdominal FLA LOS, Cardiovascular FLA LOS, Thoracic FLA LOS, Neuroradiology FLA LOS, Muskuloskeletal FLA LOS Specimen (Source) Anatomical Collection Method Collection Time Re ceived Time Location / / Volume Laterality 03/03/2020 10:09 AM CDT Impressions 03/03/2020 10:15 AM CDT An anatomic guide was designed using the patient's own imaging data to fit the patient's unique anatomy and to contribute to individualized precision treatment. ??It was created us ing 3D-printing. ??The finished guide was reviewed, delivered and discussed with t libby ordering physician, Dr. Bolton and Dr. Woodward, from the department of maxillo facial surgery. Delivery Date (MM/DD/YYYY): ??02/07/2020 Planned Surgical Date (MM/DD/YYYY): ?? Narrative 03/03/2020 10:15 AM CDT EXAM: ??DX ANATOMIC MODELING CONSULTATION INDICATION: ??Chronic mandibular osteomy elitis. Right mandible resection and reconstruction with left fibular free fl ap. STUDY DESCRIPTION: 3D Anatomic Guide of the Head/Craniofaci al (and lower extremity). Laterality: ??Right Mirror Image: ??No TECHNIQUE: ??After an initial consultati on with the ordering physician, the imaging data was reviewed. ??The data wa s exported to dedicated segmentation software where the desired anatomic stru cture was segmented from the imaging data and converted into a digital repres entation for virtual surgical planning. The planned guide planes were digitally placed in the desired anatomic locations of the anatomic structure by the corinna g physician. ??The guide planes and modeling files for the guides are export ed to CAD software, where the surgical guides are designed to match the contour of the patient's segmented anatomy including openings to match the desired surgical guide planes created during the virtual surgical planning. ??A unique pa tient identifier is imprinted on the guide. ??Each anatomic guide requires si milar but separate design and processing. The anatomic guides are 3D-printed in b iocompatible and sterilizable material. After printing, they will be cleaned and processed according to guidelines for surgical material by the OR team. PROCEDURE: IMAGING ACQUISITION Primary Imaging Study: ??Neck CT [address] pelvis angiogram 01/16/2020. Segmented Images Co-Registered: ??No IV Contrast Used: ??Yes SEGMENTATION, PROCESSING AND GUIDE DESIG N Estimated Segmentation Time: Segmenter: ??2.5 Hrs Physician/QHCP: Hrs Model also created from same segmentatio n: ??No Estimated Virtual Planning and Templatin g Time: ??2 Hrs Estimated Guide Design CAD Processing Ti me: Risk Control Specialist: ??5 Hrs Physician/QHCP: Hrs ANATOMY Specific anatomic structure from which g uide was created: ??Mandible, fibula Number of Guides: ??4 Intended Use: ??Cutting/Drilling/Osteoto my Guide. 3D PRINTING DATA FOR GENERATION OF MODEL Segmentation Software File: ??Really Simple. CAD Software: ??3-matic. 3D Printer Technology: ??Vat Photopolyme rization. 3D Printer Brand: ??mobiManage. 3D Printer Model Name/Number: ??Form 2 Print Time: ??24 Hrs/59 Min Estimated Post Processing/Cleaning/Curin g Time: ??4 Hrs MATERIAL 3D Printer Material: ??Dental SG Total Material Used (Guide and Support M aterial): ??245.8 mL Procedure Note Eladio Lora M.D. - 03/03/2020Formatt ing of this note might be different from the original. EXAM: DX ANATOMIC MODELING CONSULTATION INDICATION: Chronic mandibular osteomyel itis. Right mandible resection and reconstruction with left fibular free fl ap. STUDY DESCRIPTION: 3D Anatomic Guide of the Head/Craniofaci al (and lower extremity). Laterality: Right Mirror Image: No TECHNIQUE: After an initial consultation with the ordering physician, the imaging data was reviewed. The data was exported to dedicated segmentation software where the desired anatomic stru cture was segmented from the imaging data and converted into a digital repres entation for virtual surgical planning. The planned guide planes were digitally placed in the desired anatomic locations of the anatomic structure by the corinna desir physician. The guide planes and modeling files for the guides are export ed to CAD software, where the surgical guides are designed to match the contour of the patient's segmented anatomy including openings to match the desired surgical guide planes created during the virtual surgical planning. A unique carter ent identifier is imprinted on the guide. Each anatomic guide requires amaya lar but separate design and processing. The anatomic guides are 3D-printed in b iocompatible and sterilizable material. After printing, they will be cleaned and processed according to guidelines for surgical material by the OR team. PROCEDURE: IMAGING ACQUISITION Primary Imaging Study: Neck CT [address] pelvis angiogram 01/16/2020. Segmented Images Co-Registered: No IV Contrast Used: Yes SEGMENTATION, PROCESSING AND GUIDE DESIG N Estimated Segmentation Time: Segmenter: 2.5 Hrs Physician/QHCP: Hrs Model also created from same segmentatio n: No Estimated Virtual Planning and Templatin g Time: 2 Hrs Estimated Guide Design CAD Processing Ti me: Risk Control Specialist: 5 Hrs Physician/QHCP: Hrs ANATOMY Specific anatomic structure from which g uide was created: Mandible, fibula Number of Guides: 4 Intended Use: Cutting/Drilling/Osteotomy Guide. 3D PRINTING DATA FOR GENERATION OF MODEL Segmentation Software File: [employer] Suite. CAD Software: Angoss Software. 3D Printer Technology: Everest SoftwarepolBoticca. 3D Printer Brand: mobiManage. 3D Printer Model Name/Number: Form 2 Print Time: 24 Hrs/59 Min Estimated Post Processing/Cleaning/Curin g Time: 4 Hrs MATERIAL 3D Printer Material: Dental SG Total Material Used (Guide and Support M aterial): 245.8 mL IMPRESSION: An anatomic guide was designed using the patient's own imaging data to fit the patient's unique anatomy and to contribute to individualized precision treatment. It was created usin g 3D-printing. The finished guide was reviewed, delivered and discussed with stuart souza ordering physician, Dr. Bolton and Dr. Woodward, from the department of maxillo facial surgery. Delivery Date (/YYYY): 02/07/2020 Planned Surgical Date (MM/DD/YYYY): 01/20 Issac Woodward M.D., D.D.S. IMG DIAGNOSTIC IMAGING ME OCEDURES documented in this encounter Visit Diagnoses Diagnosis Osteomyelitis Mandible Chronic documented in this encounter
--- OUTSIDE RECORDS SUMMARY | 2022-05-05 14:42 | XMS_ITS | Encounter Summary ---
:1965 Author Organization [facility] Address [address] [place] [address] Care Team Providers Name Role Phone Unavailable Primary Care Provider Unavailable Reason for Referral Outpatient (Routine) - Closed Specialty Diagnoses / Procedures Referred By Contact Refer red To Contact Infectious Diseases Issac Woodward Tan, Eugen e M, M.D. M.D., D.D.S. [address] [place] [phone] Referral ID Status Reason Start Date Expiration Date Visits Requ ested Visits Authorized [id number] Closed 01/15/2020 01/14/2021 1 1 Scheduling Instructions Today or First available MRI/CAT/PET Scan (Routine) - Closed Specialty Diagnoses / Procedures Referred By Contact Refer red To Contact Radiology Diagnoses Osteomyelitis Mandible Chronic Issac Woodward M.D., [facility] Procedures CT Pelvis Angiogram and Lower Ext Runoff Bilat with IV Contrast D.D.S. [address] [place] [phone] Referral ID Status Reason Start Date Expiration Date Visits Requ ested Visits Authorized [id number] Closed 01/15/2020 01/14/2021 1 1 Outpatient (Routine) - Closed Specialty Diagnoses / Referred By Contact Referred To Contact Procedures Oral and Maxillofacial Issac Woodward [facility] Surgery Marlyn, D.D.S. [address] [place] [phone] Referral ID Status Reason Start Date Expiration Date Visits Requ ested Visits Authorized [id number] Closed 01/08/2020 01/07/2021 [address] appt, same day, Crissy Reason for Visit Outpatient (Routine) - Closed Specialty Diagnoses / Referred By Contact Referred To Contact Procedures Oral and Maxillofacial Issac Woodward [facility] Surgery Marlyn, Martinez.S. [address] [place] [phone] Referral ID Status Reason Start Date Expiration Date Visits Requ ested Visits Authorized [id number] Closed 01/08/2020 01/07/2021 1 1 Encounter Details Date Type Department Care Team Description 01/15/2020 Hospital Encounter Division of Oral and Crissy, [facility] Maxillofacial Surgery Issac Raymundo M.D., Evette Santo in [place], [place]. (Primary Dx) [address] [phone] Social History Tobacco Use Types Packs/Day Years [...] carBAMazepine (TEGretol) Take 300 mg by 2 11/18/ 019 02/13/2020 200 mg tablet mouth 2 [...] 500 mg by 0 02/13/2020 mouth daily. gabapentin (NEURONTIN) Take 1 capsule 90 capsule 5 0 02/13/2020 100 mg capsule (100 mg total) by mouth 3 (three) times a day. lisinopril Take 10 mg by 2 11/20/2018 [...] line care. documented as of this encounter Consult Notes Issac Woodward M.D., D.D.S. - 01/15/2020 10:20 AM CDT SUBJECTIVE CHIEF COMPLAINT / REASON FOR VISIT Osteomyelitis surveillance HISTORY OF PRESENT ILLNESS Mrs. Mcmullen is a very pleasant 54-year-old female known to my service for having undergone prior treatment for right mandibular osteomyelitis status post surgical debridement and a 6 week course of IV antibiotic therapy was completed in January 2019. She returns today after having completed an intervalCT scan which does demonstrate evidence of increased periosteal reaction, interval sclerosis, and focal areas of osteolysis. There is no fluid collections on scan. She also reports that over the past number of weeks she has been experiencing increasing episodes of pain and subjective swelling of the right perimandibular area. She states that the swelling is presently at about a 5/10. She also has been reporting intermittent right V3 paresthesia, which today is not present. He reports no history of fevers. She states that her pain is persistent despite routine dosing of ibuprofen and Tylenol. REVIEW OF SYSTEMS Pertinent items are noted in HPI; [facility] OBJECTIVE There were no vitals taken for this visit. PHYSICAL EXAM Physical Exam General: Alert and oriented, No acute distress. Face: No facial swelling or asymmetry. No cutaneous erythema. No palpable parotid or periparotid masses. Oral: The oral cavity is without lesions, masses, swellings. There is no purulent drainage. There isno bone exposure. No tooth mobility. Neck: No palpable lymphadenopathy. No orocutaneous fistulae. No cutaneous erythema. ASSESSMENT / PLAN 1. Osteomyelitis Mandible Chronic Mrs. Mcmullen is a very pleasant 54-year-old female with history of right mandibular osteomyelitis status post initial debridement and a 6 week course of IV antibiotic therapy postoperatively. She unfortunately demonstrates evidence of disease progression on scan today in her symptom profile also is in support of this. We discussed potential treatment options such as repeat conservative debridement follow-up an additional course of IV antibiotic therapy. We also discussed more definitive treatment involving segmental mandibular resection and free flap reconstruction which would also be performed concomitantly with repeat IV antibiotic therapy. I also explained that we would need to obtain a lower e xtremity CTA in order to determine her candidacy for fibular free flap reconstruction. We have been able to secure this for tomorrow. I have asked her to be re-evaluated by our colleagues in InfectiousDisease, and this was coordinated for this afternoon. Ideally we would like to proceed with re-initiation of IV antibiotic therapy for 3-4 weeks before performing her surgery, and then continuing the IV antibiotics postoperatively. I will plan to follow up with her by phone regarding the results of her CTA. We will then tentatively select a surgical datethat will accommodate her virtual surgical planning and custom plate fabrication. Electronically signed by: Issac Woodward M.D., D.D.S. 01/15/20 11:45 AM CDT documented in this encounter Plan of Treatment Upcoming Encounters Date Type Specialty Care Team Description 05/12/2022 Appointment Radiology Jamel Terrazas APRN, C.N.PAmara, D. N.P. [address] [place] [phone] (Wo rk) 05/12/2022 Appointment Oral and Maxillofacial Issac Woodward, Surgery Marlyn, Martinez.S. [address] [place] [phone] (Wo rk) Scheduled Referrals Name Type Priority Associated Order Schedule Diagnoses Oral and Outpatient Routine Once for 1 Maxillofacial Surgery Referral Occurr marylin office visit (clinic) [place] 01/15/2020 until 0 Return to provider in Outpatient Routine Expect ed: another specialty Referral 01/15/2020 , Expires: 2022 documented as of this encounter Results CT Pelvis Angiogram and Lower Ext Runoff Bilat with IV Contrast (01/16/2020 2:42 PM CDT) Anatomical Region Laterality Modality Pelvis, Lower Extremity, Cardiovascular Bilateral Computed Tomography, Computed RST LOS, Vascular Interventional ARZ Alexis ography LOS, Vascular Interventional FLA LOS, Procedural Specimen (Source) Anatomical Collection Method Collection Time Re ceived Time Location / / Volume Laterality 01/16/2020 4:25 PM CDT Impressions 01/16/2020 4:33 PM CDT No substantial lower extremity atherosclerotic disease or convincing evidence of stenosis. Lower extremity arterial anato my as described. Narrative 01/16/2020 4:33 PM CDT REVISED REPORT: EXAM: ??CT PELVIS ANGIOGRAM AND LOWER EX T RUNOFF BILAT WITH IV CONTRAST COMPARISON: ??None FINDINGS: VASCULAR FINDINGS: Mild atherosclerotic disease of the abdo anthony aorta. JONNY is patent. Iliac arteries are patent. Right lower extremity: No substantial at herosclerotic disease or stenosis; three arteries reach the ankle. Patent plantar and dorsalis pedis arteries. Left lower extremity: No substantial ath erosclerotic disease or convincing evidence of stenosis. The anterior and p osterior tibial arteries cross the ankle. The peroneal artery tapers smooth ly and becomes diminutive just before reaching the ankle, likely normal varian t. Patent plantar and dorsalis pedis arteries. ADDITIONAL FINDINGS: None Findings discussed with Dr. Woodward at 12:36 PM on 01/17/2020 Procedure Note Martín May M.D. - 01/17/2020For matting of this note might be different from the original. REVISED REPORT: EXAM: CT PELVIS ANGIOGRAM AND LOWER EXT RUNOFF BILAT WITH IV CONTRAST COMPARISON: None FINDINGS: VASCULAR FINDINGS: Mild atherosclerotic disease of the abdo anthony aorta. JONNY is patent. Iliac arteries are patent. Right lower extremity: No substantial at herosclerotic disease or stenosis; three arteries reach the ankle. Patent plantar and dorsalis pedis arteries. Left lower extremity: No substantial ath erosclerotic disease or convincing evidence of stenosis. The anterior and p osterior tibial arteries cross the ankle. The peroneal artery tapers smooth ly and becomes diminutive just before reaching the ankle, likely normal varian t. Patent plantar and dorsalis pedis arteries. ADDITIONAL FINDINGS: None Findings discussed with Dr. Woodward at 12:36 PM on 01/17/2020 IMPRESSION: No substantial lower extremity atheroscl erotic disease or convincing evidence of stenosis. Lower extremity arterial anato my as described. Issac Woodward M.D., D.D.S. IMG CT PROCEDURES documented in this encounter Visit Diagnoses Diagnosis Osteomyelitis Mandible Chronic - Primary Osteomyelitis Mandible Chronic documented in this encounter
--- OUTSIDE RECORDS SUMMARY | 2022-05-05 14:42 | XMS_ITS | Encounter Summary ---
:1965 Author Organization [facility] Address [address] [place] [address] Care Team Providers Name Role Phone Unavailable Primary Care Provider Unavailable Encounter Details Date Type Department Care Team Description 01/17/2020 Orders Only Division of Oral and Issac Woodward, Maxillofacial Surgery in [place].Shad, D .D.S. [address] [place] [phone] (Vasiliy rk) Social History Tobacco Use Types Packs/Day Years [...] Jamel Terrazas APRN, C.N.P., D. N.P. [address] [place] [phone] (Wo rk) 05/12/2022 Appointment Oral and Maxillofacial Issac Woodward, Surgery Marlyn, D.D.S. [address] [place] [phone] (Wo rk) documented as of this encounter Visit Diagnoses Not on filedocumented in this encounter
--- OUTSIDE RECORDS SUMMARY | 2022-05-05 14:42 | XMS_ITS | Encounter Summary ---
:1965 Author Organization [facility] Address [address] [place] [address] Care Team Providers Name Role Phone Unavailable Primary Care Provider Unavailable Reason for Referral MRI/CAT/PET Scan (Routine) - Closed Specialty Diagnoses / Procedures Referred By Contact Refer red To Contact Radiology Diagnoses Osteomyelitis Mandible Chronic Issac Woodward M.D., [facility] Procedures CT Pelvis Angiogram and Lower Ext Runoff Bilat with IV Contrast D.D.S. [address] [place] [phone] Referral ID Status Reason Start Date Expiration Date Visits Requ ested Visits Authorized [id number] Closed 01/15/2020 01/14/2021 1 1 Reason for Visit MRI/CAT/PET Scan (Routine) - Closed Specialty Diagnoses / Procedures Referred By Contact Refer red To Contact Radiology Diagnoses Osteomyelitis Mandible Chronic Issac Woodward M.D., [facility] Procedures CT Pelvis Angiogram and Lower Ext Runoff Bilat with IV Contrast D.D.S. [address] [place] [phone] Referral ID Status Reason Start Date Expiration Date Visits Requ ested Visits Authorized [id number] Closed 01/15/2020 01/14/2021 1 1 Encounter Details Date Type Department Care Team Description 01/16/2020 Hospital Encounter Department of Matteo Woodward Mandible Radiology, Chintan Raymundo M.D., [facility], in D.D.S. [place], [place] [address] [place] [address] [place] [phone] Social History Tobacco Use Types Packs/Day Years [...] - - Height 175.3 cm (5' 9) 01/16/2020 1:22 PM CDT Body Mass Index - - [...] documented as of this encounter Nursing Notes Ismael Pimentel R.N. - 01/16/2020 1:30 PM CDT A review of the patients current medications was completed under the context of radiology care priorto contrast/medication administration. documented in this encounter Plan of Treatment Upcoming Encounters Date Type Specialty Care Team Description 05/12/2022 Appointment Radiology Jamel Terrazas, BLOOD TESTER, C.N.P., D. N.P. [address] [place] [phone] (Wo rk) 05/12/2022 Appointment Oral and Maxillofacial Issac Woodward, Surgery Marlyn, D.D.S. [address] [place] [phone] (Wo rk) documented as of this encounter Procedures Procedure Name Priority Date/Time Associated Diagnosis Comme nts CT PELVIS RAD - Routine 01/16/2020 2:42 Osteomyelitis Results fo r this ANGIOGRAM AND (most inpatients PM CDT Mandible Chronic proced ure are in LOWER EXT RUNOFF and all the results BILAT WITH IV outpatients) section. CONTRAST documented in this encounter Results CT Pelvis Angiogram and [...] anato my as described. Issac Woodward M.D., D.D.SAmara IMG CT PROCEDURES documented in this encounter Visit Diagnoses Diagnosis Osteomyelitis Mandible Chronic documented in this encounter Administered Medications Inactive Administered Medications - up to 3 most recent administrations Medication Order MAR Action Action Date Dose Rate Site iohexoL 350 mg iodine/mL solution Given 01/16/2020 2:31 PM CDT 1 45 mL 1-200 mL (OMNIPAQUE) 1-200 mL, intravenous, Once in imaging, contrast, Starting on Tue01/16/20 at 1322, For 1 dose, Imaging Protocol Orders, Dose per Radiant Medication Guidelines sodium chloride (PF) 0.9 % injection 1-1 00 mL Given 01/16/2020 2:31 PM CDT 30 mL 1-100 mL, intravenous, Once, On Tue01/16/20 at 1330, For 1 dose, Imaging Protocol Orders documented in this encounter
--- OUTSIDE RECORDS SUMMARY | 2022-05-05 14:42 | XMS_ITS | Encounter Summary ---
:1965 Author Organization [facility] Address [address] [place] [address] Care Team Providers Name Role Phone Unavailable Primary Care Provider Unavailable Encounter Details Date Type Department Care Team Description 01/17/2020 Orders Only Division of Oral and Issac Woodward Osteo myelitis Mandible Maxillofacial Surgery in S, Marlyn , D.D.S. Chronic (Primary Dx) [place], [place] [address] [place] [address] [place] [phone] Social History Tobacco Use Types Packs/Day Years [...] Jamel Terrazas APRN, C.N.P., D. N.P. [address] [place] [phone] (Wo rk) 05/12/2022 Appointment Oral and Maxillofacial Issac Woodward, Surgery Marlyn, D.D.S. [address] [place] [phone] (Wo rk) documented as of this encounter Results DX Anatomic Modeling Consultation [...] locations of the anatomic structure by the derrickin g physician. ??The guide planes and modeling [...] Estimated Guide Design CAD Processing Ti me: Covering And Lining Supervisor: ??5 Hrs Physician/QHCP: Hrs ANATOMY Specific anatomic structure from which g uide was created: ??Mandible, fibula Number of Guides: ??4 Intended Use: ??Cutting/Drilling/Osteoto my Guide. 3D PRINTING DATA FOR GENERATION OF MODEL Segmentation Software File: ??[employer]. CAD Software: ??Ciplex. 3D Printer Technology: ??[employer]. 3D Printer Brand: ??[employer]. 3D Printer Model Name/Number: ??Form 2 Print [...] locations of the anatomic structure by the orderin g physician. The guide planes and modeling files for the guides are export ed to CAD software, where the surgical guides are designed to match the contour of the patient's segmented anatomy including openings to match the desired surgical guide planes created during the virtual surgical planning. A unique [facility] ent identifier is imprinted on the guide. [...] Estimated Guide Design CAD Processing Ti me: Covering And Lining Supervisor: 5 Hrs Physician/QHCP: Hrs ANATOMY Specific anatomic structure from which g uide was created: Mandible, fibula Number of Guides: 4 Intended Use: Cutting/Drilling/Osteotomy Guide. 3D PRINTING DATA FOR GENERATION OF MODEL Segmentation Software File: [employer] CAD Software: Ciplex. 3D Printer Technology: [id number]. 3D Printer Brand: [employer]. 3D Printer Model Name/Number: Form 2 Print [...] of maxillo facial surgery. Delivery Date (MM/DD/YYYY): 02/07/2020 Planned Surgical Date (MM/DD/YYYY): 01/20 Issac Woodward M.D., D.D.S. IMG DIAGNOSTIC IMAGING ME OCEDURES documented in this encounter Visit Diagnoses Diagnosis Osteomyelitis Mandible Chronic - Primary Osteomyelitis Mandible Chronic documented in this encounter
--- OUTSIDE RECORDS SUMMARY | 2022-05-05 14:42 | XMS_ITS | Encounter Summary ---
:1965 Author Organization [facility] Address [address] [place] [address] Care Team Providers Name Role Phone Unavailable Primary Care Provider Unavailable Reason for Referral Outpatient (Routine) - Closed Specialty Diagnoses / Procedures Referred By Contact Refer red To Contact Diagnoses Osteomyelitis Mandible Chronic Marlys Sarmiento APRN, R.NAmara [address] [place] [address] [phone] Referral ID Status Reason Start Date Expiration Date Visits Requ ested Visits Authorized [id number] Closed 01/17/2020 01/16/2021 1 1 utpatient (Routine) - Closed Specialty Diagnoses / Procedures Referred By Contact Refer red To Contact Diagnoses Osteomyelitis Mandible Chronic Christopher Hernandez, [facility] Procedures Place peripherally inserted central catheter (PICC) Marlyn [address] [place] [phone] Referral ID Status Reason Start Date Expiration Date Visits Requ ested Visits Authorized [id number] Closed 01/15/2020 01/14/2021 1 1 Reason for Visit Outpatient (Routine) - Closed Specialty Diagnoses / Procedures Referred By Contact Refer red To Contact Infectious Diseases Issac Woodward, Pepe Pfeiffer M.D. M.D., D.D.S. [address] [place] [phone] Referral ID Status Reason Start Date Expiration Date Visits Requ ested Visits Authorized [id number] Closed 01/15/2020 01/14/2021 1 1 Encounter Details Date Type Department Care Team Description 01/15/2020 Office Visit Section of Infectious Danny Strange, Oste omyelitis Mandible Diseases in Christopher Oneill M.D. Chronic (Prim mariela Dx) [place], [place] [address] [place] [address] Social History Tobacco Use Types Packs/Day Years [...] Pressure - - Pulse - - Temperature 36.9 ??C (98.5 ??F) 01/15/2020 4:14 PM CDT Respiratory Rate - - Oxygen Saturation - - Inhaled Oxygen Concentration - - Weight 84.5 kg (186 lb 4.6 oz) 01/15/2020 4:14 PM CDT Height - - Body Mass Index 27.51 01/15/2020 7:53 AM CDT documented in this encounter Progress Notes Danny Strange, Christopher Oneill M.D. - 01/15/2020 4:10 PM CDT SUBJECTIVE CHIEF COMPLAINT / REASON FOR VISIT Paola Mcmullen is a 54 y.o. female who presents for evaluation of No chief complaint on file.. HISTORY OF PRESENT ILLNESS Ms. Mcmullen is a 54 y.o. female with a history of chronic osteomyelitis of the right mandible initially noted 2017, with evidence of progression on a maxillofacial CT on 12/13/2018 that showed signs of chronic osteomyelitis of the right mandible, admitted on 12/14/2018 for mandible exploration and biopsy, cultures grew Streptococcus mitis, Rothia and other oral monique, no evidence of Actinomyces, shereceived 7 weeks of ertapenem with resolution of symptoms. After completing activities she reports that she did not have any signs or symptoms of infection, however for the last 2 or 3 months she reports intermittent tenderness of the right lower mandible, there is slight erythema, but no drainage or sinus tracts noted. She was seen today by ENT there is a plan for fibular graft reconstruction and excision of the mandible, but before a course of antibiotics is requested. The following portions of the patient's history were reviewed and updated as appropriate: allergies,current medications, family history, medical history, social history, surgical history and problem list. REVIEW OF SYSTEMS The following systems were negative: Constitutional, Skin, Eyes, ENT, CV, Respiratory, GI, OBJECTIVE PHYSICAL EXAM Constitutional General: She is not in acute distress. Appearance: She is normal weight. She is not ill-appearing, toxic-appearing or diaphoretic. HENT Head: Normocephalic and atraumatic. Mouth/Throat: Mouth: Mucous membranes are moist. Pharynx: Oropharynx is clear. No oropharyngeal exudate or posterior oropharyngeal erythema. Comments: Right mandibular tenderness, no fluctuance Cardiovascular Rate and Rhythm: Normal rate. Pulmonary Effort: Pulmonary effort is normal. No respiratory distress. Breath sounds: Normal breath sounds. No stridor. No wheezing. Abdominal General: Abdomen is flat. There is no distension. Palpations: There is no mass. Tenderness: There is no abdominal tenderness. Skin General: Skin is warm and dry. Neurological Mental Status: She is alert and oriented to person, place, and time. Psychiatric Mood and Affect: Mood normal. 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 Mcmullen is a 54 y.o. female with a history of polymicrobial chronic osteomyelitis ofthe right mandible was status post mandibular aspiration biopsy on 12/15/2019 treated with 7 weeks of ertapenem IV with resolution of symptoms, now presenting with 2 or 3 months of intermittent right lower mandibular pain and tenderness, a CT scan showed cortical thickening concerning for ongoing chronic osteomyelitis, and she is planned for fibular reconstruction and excision of the mandible. At this point would advise 3-4 weeks of IV antibiotics and plan for surgery afterwards. For this we will place a PICC line and start ertapenem IV 1 g daily before surgery, followed by broad-spectrum coverage right after the surgery and wait for cultures, if intraoperative findings are not suggestive of infection without purulence or any other findings she could even complete a course of amoxicillin clavulanate postoperatively. #1 Osteomyelitis Mandible Chronic - Place peripherally inserted central catheter (PICC); Future; Expected date: 01/15/2020 Other orders - Return to provider in another specialty documented in this encounter Miscellaneous Notes Addendum Note - Fabi Wakefield Pharm.DAmara, R.Ph. - 01/15/2020 4:10 PM CDT Addended by: FABI WAKEFIELD on: 01/16/2020 04:16 PM Modules accepted: Orders Addendum Note - Marlys Sarmiento APRN, C.N.P. - 01/15/2020 4:10 PM CDT Addended by: MARLYS SARMIENTO on: 01/17/2020 09:27 AM Modules accepted: Orders Addendum Note - Jeremy Hall R.N. - 01/15/2020 4:10 PM CDT Addended by: JEREMY HALL on: 01/17/2020 09:53 AM Modules accepted: Orders documented in this encounter Plan of Treatment Upcoming Encounters Date Type Specialty Care Team Description 05/12/2022 Appointment Radiology Jamel Terrazas APRN, C.N.P., D. N.P. [address] [place] [phone] (Wo rk) 05/12/2022 Appointment Oral and Maxillofacial Issac Woodward Surgery M.D., D.D.S. [address] [place] [phone] (Wo rk) documented as of this encounter Results Place peripherally inserted central catheter (PICC) (01/16/2020 9:30 AM CDT) Narrative MMODAL - 01/16/2020 9:30 AM CDT Lizz Shepard R.N. ? 01/16/2020 11:[address] peripherally inserted central cath eter (PICC) Date/Time: 01/16/2020 11:06 AM Performed by: Lizz Shepard R.N. Authorized by: Christopher Hernandez M.D. Care team members present 1. Xiao Miner R.N. 2. Lizz Shepard R.N. PROCEDURE DETAILS Line Size: ??4.0 FR Adult or Fernando/Peds: ??Adult # of Lumens: ??Single lumen Type of Catheter: ??Power injectable Laterality: ??Right IV Location: ??Other (comment) (brachial ) Optimal site selected: Yes ?? Blood Return: Yes ?? Placement Assistance: ??ECG guidance and ultrasound guided Tip Verification: ??ECG Catheter Length (cm): ??41 Initial Exposed Catheter (cm): ??0 Mid Upper Arm Circumference (cm): ??29 All lumens flushed (Document volume in I /O): yes ?? CONSENT Consent obtained: written UNIVERSAL PROTOCOL All relevant documentation and testing [...] and confirmed in a procedu ral pause. PRE PROCEDURE DETAILS Indications: ??Medication/nutrition requ iring central access Appropriate hand hygiene, gown, cap, mas k, protective eyewear, sterile gloves, skin preparation, sterile drape, and strict aseptic technique were utilized as applicable for the procedure .: yes ?? Site preparation: ??Chlorhexidine SEDATION / ANESTHESIA Anesthesia method: local infiltration Local infiltrate type: lidocaine POST PROCEDURE DETAILS Procedure completed successfully: yes ?? Complications: no apparent complications ?? Christopher Strange M.D. PROCEDURE/MINOR SURGICAL O RDERABLES Performing Organization Address City/State/ZIP Code Phon e Number MMODAL MMODAL NA documented in this encounter Visit Diagnoses Diagnosis Osteomyelitis Mandible Chronic - Primary Osteomyelitis Mandible Chronic - Primary documented in this encounter
--- OUTSIDE RECORDS SUMMARY | 2022-05-05 14:42 | XMS_ITS | Encounter Summary ---
:1965 Author Organization [facility] Address [address] [place] [address] Care Team Providers Name Role Phone Unavailable Primary Care Provider Unavailable Encounter Details Date Type Department Care Team Description 02/05/2020 Clinical Communication Division of Oral and Crissy, Issac Maxillofacial Surgery in SMarlyn , D.D.S. [place], [place] [address] [facility] [address] [place] [phone] Social History Tobacco Use Types Packs/Day Years Used Date Smoking Tobacco: Every Day Cigarettes 1 35 S tarted: 12/14/1984 Smokeless Tobacco: Never Alcohol Use Standard Drinks/Week Comments Yes 14 (1 standard drink = 0.6 oz pure alcoh ol) Sex Assigned at Date Recorded Female 12/22/2018 12:54 PM CDT documented as of this encounter Miscellaneous Notes Telephone Encounter - Jayla Vargas L.D.A. - 02/05/2020 3:09 PM CDT Spoke with Paola regarding many of her concerns, she is rather relieved and will still probably come with a list of questions for you on , I assured her that we are here to answer anything that comes up and that she will see you prior to being put to sleep Telephone Encounter - Luis Horowitz - 02/05/2020 10:31 AM CDT Paola would like you to give her a call regarding her surgery on . She's feeling a bit nervous and would like to discuss with you the procedure, preparation, after care, etc. Her number is [phone]. documented in this encounter Plan of Treatment Upcoming Encounters Date Type Specialty Care Team Description 05/12/2022 Appointment Radiology Jamel Terrazas APRN, C.N.P., D. N.P. [address] [place] [phone] (Wo rk) 05/12/2022 Appointment Oral and Maxillofacial Issac Woodward, Surgery Marlyn, D.D.S. [address] [place] [phone] (Wo rk) documented as of this encounter Visit Diagnoses Not on filedocumented in this encounter Additional Health Concerns Infection Onset Date Last Indicated Resolved Time COVID19 Pending 02/04/2020 02/04/2020 02/05/2020 9:35 AM CDT documented as of this encounter
--- OUTSIDE RECORDS SUMMARY | 2022-05-05 14:42 | XMS_ITS | Encounter Summary ---
:1965 Author Organization [facility] Address [address] [place] [address] Care Team Providers Name Role Phone Unavailable Primary Care Provider Unavailable Reason for Referral Outpatient (Routine) - Closed Specialty Diagnoses / Procedures Referred By Contact Refer red To Contact Diagnoses Osteomyelitis Mandible Patria Brihgt P.A.-C., [facility] [address] [place] [address] [phone] Referral ID Status Reason Start Date Expiration Date Visits Requ ested Visits Authorized [id number] Closed 01/26/2019 01/26/2020 1 1 Scheduling Instructions Same day as CT, schedule office visit af ter CT Reason for Visit Outpatient (Routine) - Closed Specialty Diagnoses / Procedures Referred By Contact Refer red To Contact Diagnoses Osteomyelitis Mandible Patria Bright P.A.-C., [facility] 200 [place], [place] [phone] Referral ID Status Reason Start Date Expiration Date Visits Requ ested Visits Authorized [id number] Closed 01/26/2019 01/26/2020 1 1 Encounter Details Date Type Department Care Team Description 05/30/2019 Hospital Encounter Division of Oral and Crissy, O steomyelitis Maxillofacial Surgery Issac Raymundo M.D., [facility] [address] [facility] [address] [place] [phone] Social History Tobacco Use Types Packs/Day Years [...] mouth every 6 (six) hours. calcium carbonate (OS-THADDEUS) Take 500 mg of 0 02/13/2020 1,250 mg (500 mg calcium) calcium by mouth tablet daily with breakfast. carBAMazepine (TEGretol) Take 300 mg by 2 019 02/13/2020 200 mg tablet mouth 2 (two) times a day. cholecalciferol (VITAMIN Take 5,000 Units by 0 02/13/2020 D3) 5,000 Unit capsule mouth daily. fish oil 500 mg capsule Take 500 mg by 0 02/13/2020 mouth daily. lisinopril Take 10 mg by mouth 2 11/20/201802/12 (PRINIVIL,ZESTRIL) 10 mg daily. tablet multivitamin capsule Take 1 capsule by 0 02/13/2020 mouth daily. oxyCODONE (ROXICODONE) 5 Take 1 tablet (5 mg 20 tablet 0 02/13/2020 mg immediate release total) by mouth tabletIndications: Acute every 4 (four) Pain Exception hours as needed for pain or severe pain or score 7-10 of 10 Indication: Acute Pain Exception. sennosides-docusate sodium Take 2 tablets by 0 02/13/2020 (SENNA WITH DOCUSATE mouth at bedtime. SODIUM) 8.6-50 mg per Use while taking tablet narcotics and until bowel movements normal. Hold for diarrhea. documented as of this encounter Consult Notes Issac Woodward M.D., D.D.S. - 05/30/2019 1:20 PM CDT SUBJECTIVE CHIEF COMPLAINT / REASON FOR VISIT Post-treatment follow up and imaging review HISTORY OF PRESENT ILLNESS Mrs. Mcmullen is a very pleasant 54-year-old female known to my service for having undergone treatment of right posterior mandibular osteomyelitis status post surgical debridement, bone culture, and a 6 week course of IV antibiotic therapy. She has completed her IV antibiotic therapy and also underwent a post treatment CT scan today which is demonstrated evidence of interval bone remodeling and no signs of CT progression of osteomyelitis. She reports no new symptoms of pain. He does endorse some slight V3 paresthesia but no progressive symptoms of pain or discomfort. She has not noted any new onsetfacial swelling or drainage. She otherwise expresses no further head neck complaints. REVIEW OF SYSTEMS Pertinent items are noted in HPI; all other systems were reviewed per CVIP. OBJECTIVE There were no vitals taken for this visit. PHYSICAL EXAM Physical Exam General: Alert and oriented, No acute distress. Face: No facial swelling or asymmetry. No orocutaneous fistulae Oral: The right posterior mandibular surgical site is well approximated. There is no bone exposure. There is no drainage. No palpation tenderness. No mucosal lesions, masses, swellings. Neck: Supple, Non-tender. No palpable cervical lymphadenopathy. ASSESSMENT / PLAN 1. Osteomyelitis Mandible Mrs. Mcmullen is a very pleasant 54-year-old female with history of right mandibular osteomyelitis status post bone culture, focal debridement, and completion of a 6 week course of IV antibiotic therapy. Based on her examination today she is doing extremely well both clinically and radiographically. Based on her clinical stability in current symptom profile I have recommended PRN follow- up in the future. I explained that would be more than happy to re-evaluate her at any point time. She is congratulated on her progress. Her questions were welcomed and answered. She was discharged in a stable condition. Electronically signed by: Issac Woodward M.D., D.D.S. 05/30/19 1:28 PM documented in this encounter Plan of Treatment Upcoming Encounters Date Type Specialty Care Team Description 05/12/2022 Appointment Radiology Jamel Terrazas APRN, C.N.P., D. N.P. [address] [place] [phone] (Wo rk) 05/12/2022 Appointment Oral and Maxillofacial Issac Woodward, Leo Cline, D.D.S. [address] [place] [address] (Vasiliy rk) Scheduled Referrals Name Type Priority Associated Diagnoses Order S chedule Oral and Outpatient Routine Osteomyelitis Once for 1 Maxillofacial Surgery Referral Mandible Occurr ences Post Op (clinic) starting 05/30/2019 unti l 05/30/2019 documented as of this encounter Visit Diagnoses Diagnosis Osteomyelitis Mandible documented in this encounter
--- OUTSIDE RECORDS SUMMARY | 2022-05-05 14:42 | XMS_ITS | Encounter Summary ---
:1965 Author Organization [facility] Address [address] [place] [address] Care Team Providers Name Role Phone Unavailable Primary Care Provider Unavailable Reason for Referral Outpatient (Routine) - Closed Specialty Diagnoses / Referred By Contact Referred To Contact Procedures Oral and Maxillofacial Issac Woodward [facility] Surgery Marlyn, D.D.S. [address] [place] [phone] Referral ID Status Reason Start Date Expiration Date Visits Requ ested Visits Authorized [id number] Closed 01/08/2020 01/07/2021 [address] appt, same dayCrissy Encounter Details Date Type Department Care Team Description 01/08/2020 Clinical Communication Division of Oral and Issac Woodward Maxillofacial Surgery in S, Marlyn , D.D.S. [place], [place] [address] [place] [address] [place] [phone] Social History Tobacco Use Types Packs/Day Years Used Date Smoking Tobacco: Every Day Cigarettes 1 35 S tarted: 12/14/1984 Smokeless Tobacco: Never Alcohol Use Standard Drinks/Week Comments Yes 14 (1 standard drink = 0.6 oz pure alcoh ol) Sex Assigned at Date Recorded Female 12/22/2018 12:54 PM CDT documented as of this encounter Miscellaneous Notes Telephone Encounter - Mallory Ness - 01/09/2020 1:25 PM CDT Scheduled and notified Telephone Encounter - Mallory Ness - 01/08/2020 1:00 PM CDT Patient is still having jaw pain and would like to be seen. Do we need imaging at all? Please place orders as needed documented in this encounter Plan of Treatment Upcoming Encounters Date Type Specialty Care Team Description 05/12/2022 Appointment Radiology Jamel Terrazas APRN, C.N.P., D. N.P. [address] [place] [phone] (Wo rk) 05/12/2022 Appointment Oral and Maxillofacial Issac Woodward, Surgery Marlyn, D.D.S. [address] [place] [phone] (Wo rk) Scheduled Referrals Name Type Priority Associated Order Schedule Diagnoses Oral and Maxillofacial Outpatient Referral Routine Expected: Surgery office visit 020 (clinic) (Approximate), Expires: 01/07/2023 documented as of this encounter Visit Diagnoses Diagnosis Osteomyelitis Mandible Chronic - Primary documented in this encounter
--- OUTSIDE RECORDS SUMMARY | 2022-05-05 14:42 | XMS_ITS | Encounter Summary ---
:1965 Author Organization [facility] Address [address] [place] [address] Care Team Providers Name Role Phone Unavailable Primary Care Provider Unavailable Reason for Referral MRI/CAT/PET Scan (Routine) - Closed Specialty Diagnoses / Procedures Referred By Contact Refer red To Contact Radiology Diagnoses Osteomyelitis Mandible Patria Bright P.A.-C., [facility] Procedures CT Maxillofacial with IV Contrast CT Maxillofacial without and with IV Contrast NV CT MAXFAC WO/W CNTRST HC CT MAXFAC WO/W CNTRST M.S. [address] [place] [phone] Referral ID Status Reason Start Date Expiration Date Visits Requ ested Visits Authorized [id number] Closed 01/26/2019 01/26/2020 1 1 Reason for Visit MRI/CAT/PET Scan (Routine) - Closed Specialty Diagnoses / Procedures Referred By Contact Refer vickey To Contact Radiology Diagnoses Osteomyelitis Mandible Patria Bright P.A.-C., [facility] Procedures CT Maxillofacial with IV Contrast CT Maxillofacial without and with IV Contrast NV CT MAXFAC WO/W CNTRST HC CT MAXFAC WO/W CNTRST M.S. [address] [place] [phone] Referral ID Status Reason Start Date Expiration Date Visits Requ ested Visits Authorized [id number] Closed 01/26/2019 01/26/2020 1 1 Encounter Details Date Type Department Care Team Description 05/30/2019 Hospital Encounter Department of Patria Bright Osteom yelitis Mandible Radiology, Chintan Tran M.S. Building, in 200 [facility] [phone] 200 [facility] [phone] [place], [place] (Work) [phone] Social History Tobacco Use Types Packs/Day Years [...] - - Height 175.3 cm (5' 9) 05/30/2019 10:20 AM CDT Body Mass Index - - [...] Terrazas APRN, C.N.P., D. N.P. [address] [place] [phone] (Wo rk) 05/12/2022 Appointment Oral and Maxillofacial Issac Woodward Surgery M.D., D.D.S. [address] [place] [phone] (Wo rk) documented as of this encounter Procedures Procedure Name Priority Date/Time Associated Comments Diagnosis CT MAXILLOFACIAL RAD - Routine 05/30/2019 Osteomyelitis Results f or WITH IV CONTRAST (most inpatients 10:41 AM CDT Mandible this pr ocedure and all are in the outpatients) results section. documented in this encounter Results CT Maxillofacial with IV Contrast (05/30/2019 10:41 AM CDT) Anatomical Region Laterality Modality Jaw, Head, Neuroradiology RST LOS, Neuroradiology ARZ N/A Computed Tomography LOS, Neuroradiology FLA LOS Specimen (Source) Anatomical Collection Method Collection Time Re ceived Time Location / / Volume Laterality 05/30/2019 10:53 AM CDT Impressions 05/30/2019 12:34 PM CDT Overall findings compatible with interval healing involving the right mandible with decreased lucency an d interval bony remodeling, as detailed in the findings section of this report. Narrative 05/30/2019 12:34 PM CDT EXAM: CT MAXILLOFACIAL WITH IV CONTRAST COMPARISON: CT maxillofacial 12/13/2018. CT neck soft tissues 08/11/2018. FINDINGS: History of chronic right poste rior mandibular osteomyelitis status post surgical exploration, cortical bone biopsy, and debridement on 12/14/2018. Since the prior study, decreased lucency within the angle and ramus of the right mandible adjacent to the inferior alveol ar nerve canal, compatible with interval healing. Interval remodeling of reactive bone along the lateral margin of the angle and ramus of the right mandible, i ncluding a small focus of irregularity (series 5 image 74) which is favored to be due to bony remodeling rather than progression of chronic osteomyelitis. No evidence of associated soft tissue component or inflammatory changes in the adjacent fat. Unchanged mildly prominent right-sided level II lymph nod es, likely reactive. No pathologic lymphadenopathy. Stable bilateral mandib ular elia. Nasopharynx, suprahyoid, and partially v isualized infrahyoid neck soft tissues are symmetric. Parotid and submandibular glands are normal. Visualized larynx is symmetric. Vasculature is normal in cour se and caliber. Ventricles and basal cisterns are symmetric and patent. Orbit s are symmetric. Partial opacification of the anterior left ethmoid air cells w ith minimal mucosal thickening of the left maxillary sinus. Mastoid air cells are well aerated bilaterally. Procedure Note Ismael Owens M.D. - 9 EXAM: CT MAXILLOFACIAL WITH IV CONTRAST COMPARISON: CT maxillofacial 12/13/2018. CT neck soft tissues 08/11/2018. FINDINGS: History of chronic right poste rior mandibular osteomyelitis status post surgical exploration, cortical bone biopsy, and debridement on 12/14/2018. Since the prior study, decreased lucency within the angle and ramus of the right mandible adjacent to the inferior alveol ar nerve canal, compatible with interval healing. Interval remodeling of reactive bone along the lateral margin of the angle and ramus of the right mandible, i ncluding a small focus of irregularity (series 5 image 74) which is favored to be due to bony remodeling rather than progression of chronic osteomyelitis. No evidence of associated soft tissue component or inflammatory changes in the adjacent fat. Unchanged mildly prominent right-sided level II lymph nod es, likely reactive. No pathologic lymphadenopathy. Stable bilateral mandib ular elia. Nasopharynx, suprahyoid, and partially v isualized infrahyoid neck soft tissues are symmetric. Parotid and submandibular glands are normal. Visualized larynx is symmetric. Vasculature is normal in cour se and caliber. Ventricles and basal cisterns are symmetric and patent. Orbit s are symmetric. Partial opacification of the anterior left ethmoid air cells w ith minimal mucosal thickening of the left maxillary sinus. Mastoid air cells are well aerated bilaterally. IMPRESSION: Overall findings compatible with interva l healing involving the right mandible with decreased lucency an d interval bony remodeling, as detailed in the findings section of this report. Rojelio Wilson P.A.-C.SAmara IMG CT PROCEDURES documented in this encounter Visit Diagnoses Diagnosis Osteomyelitis Mandible documented in this encounter Administered Medications Inactive Administered Medications - up to 3 most recent administrations Medication Order MAR Action Action Date Dose Rate Site iohexol 300 mg iodine/mL solution Given 05/30/2019 10:33 AM CDT 100 mL 1-200 mL (OMNIPAQUE) 1-200 mL, intravenous, Once in imaging, contrast, Starting on Tue05/30/19 at 1020, For 1 dose, Imaging Protocol Orders, Dose per Radiant Medication Guidelines sodium chloride (PF) 0.9 % injection 1-1 00 mL Given 05/30/2019 10:34 AM CDT 35 mL 1-100 mL, intravenous, Once, On Tue05/30/19 at 1030, For 1 dose, Imaging Protocol Orders documented in this encounter
--- OUTSIDE RECORDS SUMMARY | 2022-05-05 14:42 | XMS_ITS | Encounter Summary ---
:1965 Author Organization [facility] Address [address] [place] [address] Care Team Providers Name Role Phone Unavailable Primary Care Provider Unavailable Reason for Visit Reason Comments OPAT Handoff Encounter Details Date Type Department Care Team Description 01/21/2020 Clinical Communication Section of Infectious Ashwini Pierson (Handoff) Diseases in M, R.N. [place], [place] [phone] [address] [facility] (Work) [place] [phone] Social History Tobacco Use Types Packs/Day Years Used Date Smoking Tobacco: Every Day Cigarettes 1 35 S tarted: 12/14/1984 Smokeless Tobacco: Never Alcohol Use Standard Drinks/Week Comments Yes 14 (1 standard drink = 0.6 oz pure alcoh ol) Sex Assigned at Date Recorded Female 12/22/2018 12:54 PM CDT documented as of this encounter Miscellaneous Notes Telephone Encounter - Ashwini Pierson, R.N. - 01/21/2020 12:56 PM CDT Coordination of Care - Standing Orders Handoff [facility], phone: [phone] Patient is on Ertapenem. Tentative stop date: 02/11/2020; final stop date to be determined at follow up visit. Date of ID follow up appt: pt will be on Ertapenem until she has surgery. Pre-admit appt iscurrently scheduled for 02/07/2020. Lab orders were reviewed according to Antimicrobial Therapy Monito ring for the Division of Infectious Diseases Protocol, [id number]. Nurse was contacted by Killian at the above facility and it was confirmed that patient will be monitored by this outside facility using the [facility] Infectious Diseases Outpatient Parenteral Antimicrobial Therapy (OPAT) Standing Orders with [facility]. It has been requested that [facility] Infectious Disease nursing team be notified of any abnormal labs as defined by the standing orders and/or when therapy is complete. ID sign off note was written by Christopher Strange M.D.. Please see Hospital Summary and ID Sign Off note for additional details. All questions were answered and outside facility is comfortable with this plan. documented in this encounter Plan of Treatment Upcoming Encounters Date Type Specialty Care Team Description 05/12/2022 Appointment Radiology Jamel Terrazas APRN, C.N.P., D. N.P. [address] [place] [phone] (Wo rk) 05/12/2022 Appointment Oral and Maxillofacial Issac Woodward, Leo Cline, D.D.S. [address] [place] [phone] (Wo rk) documented as of this encounter Visit Diagnoses Not on filedocumented in this encounter
--- OUTSIDE RECORDS SUMMARY | 2022-05-05 14:42 | XMS_ITS | Encounter Summary ---
:1965 Author Organization [facility] Address [address] [place] [address] Care Team Providers Name Role Phone Unavailable Primary Care Provider Unavailable Reason for Referral MRI/CAT/PET Scan (Routine) - Closed Specialty Diagnoses / Procedures Referred By Contact Refer red To Contact Radiology Diagnoses Osteomyelitis Mandible Patria Bright P.A.-C., [facility] Procedures CT Maxillofacial with IV Contrast CT Maxillofacial without and with IV Contrast WA CT MAXFAC WO/W CNTRST HC CT MAXFAC WO/W CNTRST M.S. [address] [place] [phone] Referral ID Status Reason Start Date Expiration Date Visits Requ ested Visits Authorized [id number] Closed 01/26/2019 01/26/2020 1 1 Outpatient (Routine) - Closed Specialty Diagnoses / Procedures Referred By Contact Refer red To Contact Diagnoses Osteomyelitis Mandible Patria Bright P.A.-C., [facility] M.S. [address] [place] [address] [phone] Referral ID Status Reason Start Date Expiration Date Visits Requ ested Visits Authorized [id number] Closed 01/26/2019 01/26/2020 1 1 Scheduling Instructions Same day as CT, schedule office visit af ter CT Reason for Visit Reason Comments Return Visit Outpatient (Routine) - Closed Specialty Diagnoses / Procedures Referred By Contact Refer red To Contact Diagnoses Osteomyelitis Mandible Issac Woodward M.D., [facility] D.ShadS. [address] [place] [phone] Referral ID Status Reason Start Date Expiration Date Visits Requ ested Visits Authorized [id number] Closed 12/27/2018 12/27/2019 1 1 Encounter Details Date Type Department Care Team Description 01/26/2019 Office Visit Division of Oral and Issac Woodward w Up Surgery Exam (Primary Dx); Maxillofacial Surgery in Marlyn Raymundo, Ost eomyelitis Mandible [place], [place] DKaylaS. [address] [facility] [address] [place] [address] [place], [place] [phone] Social History Tobacco Use Types Packs/Day Years Used Date Smoking Tobacco: Every Day Cigarettes 1 35 S tarted: 12/14/1984 Smokeless Tobacco: Never Alcohol Use Standard Drinks/Week Comments Yes 14 (1 standard drink = 0.6 oz pure alcoh ol) Sex Assigned at Date Recorded Female 12/22/2018 12:54 PM CDT documented as of this encounter Consult Notes Patria Bright P.A.-C., M.S. - 01/26/2019 1:20 PM CDT SUBJECTIVE CHIEF COMPLAINT / REASON FOR VISIT Paola Mcmullen is a 53 y.o. female who presents forReturn Visit. HISTORY OF PRESENT ILLNESS Mrs. Mcmullen is a pleasant 53-year-old female known to the service of Dr. Woodward having undergonetreatment of chronic right mandibular osteomyelitis. She underwent surgical exploration and debridement of the right posterior mandible on December 14. She was seen by our Infectious Disease colleagues who had recommended 6 weeks IV antibiotic therapy, of which she states she completed yesterday. She informs me that she is scheduled to see infectious disease this afternoon. Today she reports that she is having no pain. She feels that she is having numbness across the right mandible, but she does not mind this as it is much more tolerable than the pain. She denies swelling, drainage, fever or chills.She feels that the intraoral surgical site is healing well. REVIEW OF SYSTEMS Pertinent items are noted in HPI; all other systems were reviewed per CVIP. OBJECTIVE There were no vitals taken for this visit. PHYSICAL EXAM Physical Exam General: Alert and oriented, No acute distress. Face: No facial swelling or asymmetry. Oral: The surgical site of the right posterior mandible is completely healed at this time. The previous dehiscence that was noted is no longer visible. All the sutures have dissolved. The soft tissues are pink and healthy appearing. There is no evidence of bony exposure. No signs of purulent drainage.Incision is well-healed. Neck: Supple, Non-tender. No palpable cervical lymphadenopathy. ASSESSMENT / PLAN 1. Follow Up Surgery Exam 2. Osteomyelitis Mandible Mrs. Mcmullen is 6 weeks status post surgical treatment of chronic right posterior mandibular osteomyelitis. She completed her IV antibiotic therapy yesterday. She is scheduled to see our infectious disease colleagues today. They will advise if it is okay for her to have the PICC line removed, and discuss if further antibiotic therapy is recommended. From a surgical standpoint, she has healed very well, and her intraoral incision is very well-healed. No concerns at this time. I have requested to have her return in [address] scan, with a follow-up appointment with Dr. Woodward after for reassessment and review CT. She is understanding and agreement of this plan. documented in this encounter Plan of Treatment Upcoming Encounters Date Type Specialty Care Team Description 05/12/2022 Appointment Radiology Jamel Terrazas SAND POLISHER, C.N.P., D. N.P. [address] [place] [phone] (Vasiliy ac) 05/12/2022 Appointment Oral and Maxillofacial Issac Woodward, Surgery Marlyn, D.D.S. [address] [place] [phone] (Vasiliy ac) Scheduled Referrals Name Type Priority Associated Diagnoses Order S chedule Oral and Outpatient Routine Osteomyelitis Expected: Maxillofacial Surgery Referral Mandible 2018 Post Op (clinic) (Approximat e), Expires: 01/26/2022 documented as of this encounter Results CT Maxillofacial with IV [...] in the findings section of this report. Patria Bright P.A.-C., M.S. IMG CT PROCEDURES documented in this encounter Visit Diagnoses Diagnosis Follow Up Surgery Exam - Primary Osteomyelitis Mandible Osteomyelitis Mandible documented in this encounter
--- OUTSIDE RECORDS SUMMARY | 2022-05-05 14:42 | XMS_ITS | Encounter Summary ---
:1965 Author Organization [facility] Address [address] [place] [address] Care Team Providers Name Role Phone Unavailable Primary Care Provider Unavailable Reason for Visit Outpatient (Routine) - Closed Specialty Diagnoses / Procedures Referred By Contact Refer red To Contact Infectious Diseases Diagnoses Osteomyelitis Mandible Chronic Issac Woodward [place] Danni Cline, D.D.S. [address] [place] [phone] Referral ID Status Reason Start Date Expiration Date Visits V isits Requested Authorized [id number] Closed Specialty 12/13/2018 12/13/2019 1 1 Services Required Encounter Details Date Type Department Care Team Description 01/26/2019 Office Visit Section of Infectious Issac Woodward M.D., D.D.S. [address] [place] [phone] Osteomyelitis Mandible Diseases in PfeifferMervin M.D. [place], [place] [address] [place] [phone] Social History Tobacco Use Types Packs/Day Years [...] Pressure - - Pulse - - Temperature 36.5 ??C (97.7 ??F) 01/26/2019 2:28 PM CDT Respiratory Rate - - Oxygen Saturation - - Inhaled Oxygen Concentration - - Weight 76.8 kg (169 lb 5 oz) 01/26/2019 2:28 PM CDT Height - - Body Mass Index 25 12/14/2018 1:00 PM CDT documented in this encounter Progress Notes Mervin Pfeiffer M.D. - 01/26/2019 3:50 PM CDT Paola Mcmullen [phone] Reason for Consult: Right mandibular osteomyelitis treatment and [facility] ID post- hospital follow-up History of Present Illness: Ms. Mcmullen is a 53-year-old female who has had persistent right molar pain starting in May 2015. 3 teeth were removed. An geologist performed a root canal, but her symptoms did not improve. Her pain persisted despite ibuprofen. There was a potential diagnosis of trigeminal neuralgia. She had not had any prior radiation or surgery to her neck or jaw. Despite a diagnosis of osteopenia 10-15 years prior, she had not been treated with a bisphosphonate. On 12/13/18, a maxillofacial CT showed chronic osteomyelitis of the right mandible. These findings were similar but may have progressed slightly since the 08/11/18 imaging study. On 12/14/18, she was admitted for exploration, biopsy, and bone culture of her right mandible. She received 2 g of cefazolin anna-operatively. During the procedure, a 1-cm x 0.5-cm block of cortical bone was sent for culture. Surgical exploration, copious irrigation, and curetting of the bone were performed along the lateral aspect of the mandible. There was soft cortical bone consistent with periosteal reaction from 2 approximately 1-cm specimens. Upon [facility] ID consultation on 12/14/18, a PICC line was placed, and she was advised ceftriaxone 2 g IV q24h and metronidazole 500 mg PO TID for a day. She was then transitioned to ertapenem for a polymicrobial infection. Cultures grew Streptococcus mitis, Rothia mucilaginosa, and Haemophilus haemolyticus, all of which should have been susceptible to ertapenem. There was a plan to complete 42 days of ertapenem (stop date of 01/25/19) of outpatient treatment, per Dr. Walker. Surgical pathology of right posterior mandibular biopsy showed lamellar bone with marrow space fibrosis. She was advised a 2-week follow-up in ID clinic to discuss the length of antibiotics and verify any other growth from cultures. On 12/22/18, she returned to ID clinic, where she was doing well. On 12/27/18, she saw Dr. Woodward in S, who noted healthy fibrinous tissue and no purulence in the oral cavity. On 12/29/18, Fabi Wakefield spoke to the patient regarding a mild ALT elevation, likely due to acetaminophen use after her hospital stay. She was using 1 g q6h along with ibuprofen. Fabi recommended decreasing that to 500 mg q6h, and her ALT subsequently decreased from 92 (12/28/18) to 58 (01/18/19). On 01/26/19, the patient returned to the ID clinic. She noted a few dizzy spells (vertigo) on Tuesday, but these resolved. She had no headache, fevers, chills, sweats, oral pain, abdominal pain, nausea, vomiting, or diarrhea. She just saw S this morning, and she was told that she was doing well. PAST MEDICAL HISTORY ?? 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 ?? 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 Hypertension ?? Hypothyroidism ?? TALON on CPAP ?? Osteopenia ?? Hyperlipidemia ?? Nicotine and alcohol use ?? Depression SOCIAL HISTORY Infectious disease exposure history is as follows: -She lives in a house with her and does not have exposure to animals. -No uncooked meat or fish. -No sick contacts recently. -No travel ever outside of the country. PHYSICAL EXAM - General: Awake, alert, no acute distress - HEENT: Well-healed surgical incision in the oral cavity. Sutures in place. Some edema of the rightjaw. - Heart: RRR, normal S1/S2 - Lung: CTAB - Abd: Soft, nontender MICROBIOLOGY ?? 12/14/18: Aerobic culture of mandible tissue growing: ? 2+ Streptococcus mitis group, not S. pneumoniae. Resistant to erythromycin. Susceptible to ceftriaxone, levofloxacin, penicillin, and vancomycin. ? 1+ Rothia mucilaginosa. No susceptibilities obtained. Per antibiogram, 98% susceptible to ceftriaxone, 100% susceptible to meropenem, 100% susceptible to penicillin, 100% susceptible to vancomycin. ? 1+ Haemophilus haemolyticus. Susceptible to ceftriaxone and TMP/SMX. ?? 12/14/18: Anaerobic culture of mandible tissue growing mixed monique. ?? 12/14/18: HIV-1/-2 Ag and Ab screen negative ANTIMICROBIALS ?? Ertapenem: 12/15/18-01/25/19 ANTIMICROBIAL ALLERGIES ?? None PATHOLOGY ?? 12/14/18: Right posterior mandibular biopsy showed lamellar bone with marrow space fibrosis. RENAL FUNCTION ?? 12/14/18: eGFR 83 ECG QTC ?? Not available within 10 years LABS ?? Hg 13.2 (12/14/18) - 13.1 (12/21/18) - 13.5 (01/18/19) ?? WBC 6.7 (12/14/18) - 5.8 (12/21/18) - 5.8 (01/18/19) ?? Plt 222 (12/14/18) - 274 (12/21/18) - 278 (01/18/19) ?? ESR 4 (12/14/18) ?? Cr 0.80 (12/14/18) - 0.79 (12/21/18) - 0.71 (01/18/19) ?? eGFR 83 (12/14/18) ?? Total bilirubin 0.3 (12/14/18) ?? Direct bilirubin < 0.2 (12/14/18) ?? ALT 39 (12/14/18) - 68 (12/21/18) - 58 (01/18/19) ?? AST 39 (12/14/18) ?? CRP < 3.0 (12/14/18) #1 Chronic osteomyelitis of the right mandible s/p exploration and debridement on 12/14/18 Mrs. Mcmullen is a 53-year-old female who has had chronic osteomyelitis of the right mandible since May 2015. She underwent an irrigation and debridement on 12/14/18, and cultures have shown polymicrobial growth (Streptococcus mitis group, Rothia mucilaginosa, and Haemophilus haemolyticus). She wasdischarged from the [facility] ID inpatient hospital service and advised 42 days of ertapenem (ending 01/25/19). RECOMMENDATIONS ?? Discontinue ertapenem 1 g IV q24h for a polymicrobial infection. Cultures grew Streptococcus mitis, Rothia mucilaginosa, and Haemophilus haemolyticus, all of which should have been susceptible to ertapenem. There was a plan to complete 42 days of ertapenem (stop date of 01/25/19) of outpatient treatment, per Dr. Walker, and we can adhere to this plan. There is no delayed growth of any organisms and nogrowth of Actinomyces. An Actinomyces culture was performed and is confirmed negative. ?? The patient had an appointment with [facility] on 01/26/19 as well. She was advised follow-up in [address] scan. No further ID follow-up is needed. ?? PICC line removal will take place after the clinic appointment. No work restrictions apply now that the PICC is out. I wrote a note stating that the patient can return to work on 01/29/19, with no restrictions. Discussed with Dr. Mccormick. documented in this encounter Plan of Treatment Upcoming Encounters Date Type Specialty Care Team Description 05/12/2022 Appointment Radiology Jamel Terrazas APRN, C.N.P., D. N.P. [address] [place] [phone] (Vasiliy ac) 05/12/2022 Appointment Oral and Maxillofacial Issac Woodward, Surgery Marlyn, D.D.S. [address] [place] [phone] (Vasiliy ac) Scheduled Orders Name Type Priority Associated Diagnoses Order S chedule Remove PICC Procedures Routine Osteomyelitis Mandible Expec shira: 01/26/2019 (non-tunneled) or Chronic (Approxima te), Midline Catheter Expires: documented as of this encounter Visit Diagnoses Diagnosis Osteomyelitis Mandible Chronic documented in this encounter
--- OUTSIDE RECORDS SUMMARY | 2022-05-05 14:42 | XMS_ITS | Encounter Summary ---
:1965 Author Organization [facility] Address [address] [place] [address] Care Team Providers Name Role Phone Unavailable Primary Care Provider Unavailable Reason for Visit Reason Onset Date Comments OPAT Normal Labs 01/12/2019 Encounter Details Date Type Department Care Team Description 01/12/2019 Clinical Communication Section of Lakshmi Clifton OPAT Normal Labs Infectious Diseases M, R.N. in [place], [address] [place] [address] [place] [phone] [place], [place] [phone] (Work) [phone] Social History Tobacco Use Types Packs/Day Years Used Date Smoking Tobacco: Every Day Cigarettes 1 35 S tarted: 12/14/1984 Smokeless Tobacco: Never Alcohol Use Standard Drinks/Week Comments Yes 14 (1 standard drink = 0.6 oz pure alcoh ol) Sex Assigned at Date Recorded Female 12/22/2018 12:54 PM CDT documented as of this encounter Miscellaneous Notes Telephone Encounter - Lakshmi Clifton, R.N. - 01/12/2019 8:54 AM CDT OPAT NOTE Infusion Provider: [employer] [facility], phone: [phone] Antimicrobial(s) currently prescribed: See medication list in Epic. Tentative stop date: 01/25/2019; final stop date to be determined at follow up visit. Date of ID follow up appt: 12/27/2018. OPAT labs: were received by fax. 12/21/2018 12/28/2018 01/04/2019 01/11/2019 WBC 5.8 6.0 5.7 5.7 ANC 3300 3500 3400 3400 HGB 13.1 12.5 13.0 130 Platelets 274 298 295 253 ALT 68 (0-50) 92 71 55 Creatinine 0.79 0.78 0.92 0.75 Patient's antibiotic therapy does not require drug level monitoring (see above). Interpretation and action: Labs were reviewed and satisfactory per [facility] Practice Nursing Guideline. documented in this encounter Plan of Treatment Upcoming Encounters Date Type Specialty Care Team Description 05/12/2022 Appointment Radiology Jamel Terrazas, OIL PIPE INSPECTOR HELPER, C.N.P., D. N.P. [address] [place] [phone] (Wo rk) 05/12/2022 Appointment Oral and Maxillofacial Issac Woodward, Surgery Marlyn, D.D.S. [address] [place] [phone] (Wo rk) documented as of this encounter Visit Diagnoses Not on filedocumented in this encounter
--- OUTSIDE RECORDS SUMMARY | 2022-05-05 14:42 | XMS_ITS | Encounter Summary ---
:1965 Author Organization [facility] Address [address] [place] [address] Care Team Providers Name Role Phone Unavailable Primary Care Provider Unavailable Reason for Visit Reason Comments Procedure Outpatient (Routine) - Closed Specialty Diagnoses / Procedures Referred By Contact Refer red To Contact Diagnoses Osteomyelitis Mandible Chronic Brandono Christopher Strange, [facility] Procedures Place peripherally inserted central catheter (PICC) Marlyn [address] [place] [phone] Referral ID Status Reason Start Date Expiration Date Visits Requ ested Visits Authorized [id number] Closed 01/15/2020 01/14/2021 1 1 Encounter Details Date Type Department Care Team Description 01/16/2020 Infusion Department of Infusion Cano Alexandr, Ost eomyelitis Mandible Therapy in [place], Christopher Oneill M.D. [employer] salbador (Primary Dx) [address] [phone] Social History Tobacco Use Types Packs/Day Years [...] Sign Reading Time Taken Comments Blood Pressure 143/84 01/16/2020 10:00 AM CDT Pulse 58 01/16/2020 10:00 AM CDT Temperature 36.8 ??C (98.2 ??F) 01/16/2020 10:00 AM CDT Respiratory Rate 18 01/16/2020 10:00 AM CDT Oxygen Saturation - - Inhaled Oxygen Concentration - - Weight - - Height - - Body Mass Index - - documented in this encounter Procedure Notes Lizz Shepard R.N. - 01/16/2020 9:30 AM CDTAssociated Order(s): Place peripherally inserted central catheter (PICC) Pre-Procedure Diagnose(s): Osteomyelitis Mandible Chronic Post-Procedure Diagnose(s): Osteomyelitis Mandible Chronic Place peripherally inserted central catheter (PICC) Date/Time: 01/16/2020 11:06 AM Performed by: Lizz Shepard R.N. Authorized by: Christopher Hernandez M.D. Care team members present 1. Xiao Miner R.N. 2. Lizz Shepard R.N. PROCEDURE DETAILS Line Size: 4.0 FR Adult or Fernando/Peds: Adult # of Lumens: Single lumen Type of Catheter: Power injectable Laterality: Right IV Location: Other (comment) (brachial) Optimal site selected: Yes Blood Return: Yes Placement Assistance: ECG guidance and ultrasound guided Tip Verification: ECG Catheter Length (cm): 41 Initial Exposed Catheter (cm): 0 Mid Upper Arm Circumference (cm): 29 All lumens flushed (Document volume in I/O): yes CONSENT Consent obtained: written UNIVERSAL PROTOCOL All [...] procedure and confirmed in a procedural pause. PRE PROCEDURE DETAILS Indications: Medication/nutrition requiring central access Appropriate hand hygiene, gown, cap, mask, protective eyewear, sterile gloves, skin preparation, sterile drape, and strict aseptic technique were utilized as applicable for the procedure.: yes Site preparation: Chlorhexidine SEDATION / ANESTHESIA Anesthesia method: local infiltration Local infiltrate type: lidocaine POST PROCEDURE DETAILS Procedure completed successfully: yes Complications: no apparent complications documented in this encounter Nursing Notes Lizz Shepard R.N. - 01/16/2020 9:30 AM CDT Patient here at [facility] for a PICC placement and first dose of antibiotics. Family mentioned that they are planning to continue infusions at home. As of now, no formal plans have been initiated for that tohappen. Social work was contacted at [phone]. Also gave the number to the family to followup with plans. Recommended patient to call primary if they don't hear from Social Work by mid afternoon. Patient in agreement with plans. documented in this encounter Plan of Treatment Upcoming Encounters Date Type Specialty Care Team Description 05/12/2022 Appointment Radiology Jamel Terrazas APRN, C.N.P., D. N.P. [address] [place] [phone] (Wo rk) 05/12/2022 Appointment Oral and Maxillofacial CrissyIssac newberry Surgery M.D., D.D.S. [address] [place] [phone] (Wo rk) documented as of this encounter Procedures Procedure Name Priority Date/Time Associated Diagnosis Comme nts PLACE PERIPHERALLY Routine 01/16/2020 9:30 Osteomyelitis Resul ts for this INSERTED CENTRAL AM CDT Mandible Chronic procedu re are in CATHETER (PICC) the results section. documented in this encounter Results Place peripherally inserted central [...] Chronic - Primary documented in this encounter Administered Medications Inactive Administered Medications - up to 3 most recent administrations Medication Order MAR Action Action Date Dose Rate Site ertapenem injection 1 g (INVanz) Given 01/16/2020 10:56 AM CDT 1 g 1 g, intravenous, Once, On Tue01/16/20 at 1000, For 1 dose, If needed, reconstitute vial per package insert instructions. See IVAG for administration guidelines. , Restriction Criteria (Pharmacy will review and approve if criteria met): Does not meet criteria (ID recommended), Authorizing provider? cana0, Drug Monitoring Program: Pharmacist to adjust medication dosing based on indication and drug clearance factors., Indications: Bone and/or joint infection sodium chloride 0.9 % injection 10 mL Given 01/16/2020 10:59 AM CDT 10 mL 10 mL, intra-catheter, As needed, line care, Starting on Tue01/16/20 at 1059, Prior to and following infusion, between multiple consecutive infusions, prior to and following blood sampling, and post blood transfusion. documented in this encounter
--- OUTSIDE RECORDS SUMMARY | 2022-05-05 14:42 | XMS_ITS | Encounter Summary ---
:1965 Author Organization [facility] Address [address] [place] [address] Care Team Providers Name Role Phone Unavailable Primary Care Provider Unavailable Reason for Visit Reason Comments COVCAROLYNN Nurse Line Encounter Details Date Type Department Care Team Description 01/09/2020 Clinical Communication Division of Oral and CrissyJOSEE baldwin Nurse Line Maxillofacial Surgery Issac Raymundo M.D., in [facility] [address] [facility] [address] [place] [phone] Social History Tobacco Use Types Packs/Day Years [...] Mallory Ness - 01/09/2020 1:25 PM CDT 1. Do you have a pending COVID test because you had symptoms or exposure to someone with COVID or you have tested positive for COVID in the last 30 days? no 2. In the past 14 days, do you, anyone in the household, or anyone you have had prolonged exposure have any of the following? a. Fever = 38.0 C (100.5 F) lasting 24 hours? no b. New symptoms (Specifically: headache, cough, shortness of breath, respiratory distress, sore throat, diarrhea, nausea, vomiting, chills and repeated shaking with chills, myalgia's (muscle aches), loss of smell, or change or loss of taste sensation)? no c. Had close contact with a patient with known or possible COVID-19 in the last 14 days? no Route reply to: Mallory Gayle Contact Number: [phone] documented in this encounter Plan of Treatment Upcoming Encounters Date Type Specialty Care Team Description 05/12/2022 Appointment Radiology Jamel Terrazas APRN, C.N.P., D. N.P. [address] [place] [phone] (Wo rk) 05/12/2022 Appointment Oral and Maxillofacial Issac Woodward, Surgery Marlyn, D.D.S. [address] [place] [phone] (Wo rk) documented as of this encounter Visit Diagnoses Not on filedocumented in this encounter
--- OUTSIDE RECORDS SUMMARY | 2022-05-05 14:42 | XMS_ITS | Encounter Summary ---
:[address] [facility] Address [address] [place] [address] Care Team Providers Name Role Phone Unavailable Primary Care Provider Unavailable Encounter Details Date Type Department Care Team Description 01/17/2020 Clinical Communication Section of Infectious Cano Angi vicente, Diseases in [place], Christopher Oneill M.D[address] [phone] Social History Tobacco Use Types Packs/Day Years Used Date Smoking Tobacco: Every Day Cigarettes 1 35 S tarted: 12/14/1984 Smokeless Tobacco: Never Alcohol Use Standard Drinks/Week Comments Yes 14 (1 standard drink = 0.6 oz pure alcoh ol) Sex Assigned at Date Recorded Female 12/22/2018 12:54 PM CDT documented as of this encounter Miscellaneous Notes Telephone Encounter - Eladio Romero II - 01/17/2020 1:37 PM CDT The patient called stating that the social services is waiting to receive the orders for the infusion therapy. Please advise. documented in this encounter Plan of Treatment Upcoming Encounters Date Type Specialty Care Team Description 05/12/2022 Appointment Radiology Jamel Terrazas APRN, C.N.P., D. N.P. [address] [place] [address] [phone] (Vasiliy ac) 05/12/2022 Appointment Oral and Maxillofacial Issac Woodward, Leo Cline, D.D.S. [address] [place] [phone] (Wo rk) documented as of this encounter Visit Diagnoses Not on filedocumented in this encounter Additional Health Concerns Infection Onset Date Last Indicated Resolved Time COVID19 Pending 02/04/2020 02/04/2020 02/05/2020 9:35 AM CDT documented as of this encounter
--- OUTSIDE RECORDS SUMMARY | 2022-05-05 14:42 | XMS_ITS | Encounter Summary ---
:[address] [facility] Address [address] [place] [address] Care Team Providers Name Role Phone Unavailable Primary Care Provider Unavailable Encounter Details Date Type Department Care Team Description 01/29/2020 Episode Changes Section of Infectious Isabel, And zuleyma Awan R.N. Diseases in [place], [facility] [address] [place], [place] [address] [place] [phone] [place] [address] [phone] Social History Tobacco Use Types Packs/Day Years [...] Jamel Terrazas APRN, C.N.P., D. N.P. [address] [place] [phone] (Wo rk) 05/12/2022 Appointment Oral and Maxillofacial Issac Woodward, Surgery Marlyn, D.D.S. [address] [place] [phone] (Wo rk) documented as of this encounter Visit Diagnoses Not on filedocumented in this encounter
--- OUTSIDE RECORDS SUMMARY | 2022-05-05 14:42 | XMS_ITS | Encounter Summary ---
:1965 Author Organization [facility] Address [address] [place] [address] Care Team Providers Name Role Phone Unavailable Primary Care Provider Unavailable Encounter Details Date Type Department Care Team Description 02/07/2019 Orders Only Section of Infectious Mervin Pfeiffer Diar rhea (Primary Dx) Diseases in [facility] [address] [place] [address] Social History Tobacco Use Types Packs/Day Years [...] Jamel Terrazas APRN, C.N.P., D. N.P. [address] [place] [phone] (Wo yashira) 05/12/2022 Appointment Oral and Maxillofacial Issac Woodward, Surgery Marlyn, D.D.S. [address] [place] [phone] (Wo yashira) documented as of this encounter Visit Diagnoses Diagnosis Diarrhea - Primary documented in this encounter
--- OUTSIDE RECORDS SUMMARY | 2022-05-05 14:42 | XMS_ITS | Encounter Summary ---
:1965 Author Organization [facility] Address [address] [place] [address] Care Team Providers Name Role Phone Unavailable Primary Care Provider Unavailable Encounter Details Date Type Department Care Team Description 02/04/2020 Hospital Encounter Department of Issac Woodward Laboratory Medicine Marlyn Raymundo, Colleen desir For Other in [facility] Susy. Viral Diseases [place] [address] [facility] (COVID-19) [address] [place] [phone] Social History Tobacco Use Types Packs/Day Years [...] End Date acetaminophen (TYLENOL) 2 tablets (1,000 0 2019 500 mg tablet mg total) by gastric tube route every 6 (six) hours. cholecalciferol (VITAMIN Take 1 capsule 0 020 D3) 5,000 Unit capsule (5,000 Units total) by mouth daily. Hold until taking oral diet. fish oil 500 mg capsule Take 1 capsule 0 02/13/20 20 (500 mg total) by mouth daily. Hold until taking oral diet. lisinopriL 1 tablet (10 mg 2 02/13/2020 (PRINIVIL,ZESTRIL) 10 mg total) by gastric tablet tube route daily. amoxicillin-pot Take 1 tablet by 14 tablet 0 02/13/2020 clavulanate (AUGMENTIN) mouth 2 (two) 875-125 mg per tablet times a day. Crush for use in feeding tube acetaminophen (TYLENOL) Take 2 tablets 0 12/16/19 19 02/13/2020 500 mg tablet (1,000 mg total) by mouth every 6 (six) hours. bacitracin zinc 500 Apply 1 packet 0 02/13/2020 1 unit/gram ointment packet topically 2 (two) times a day. calcium carbonate Take 500 mg of 0 (OS-THADDEUS) 1,250 mg (500 mg calcium by mouth calcium) tablet daily with breakfast. calcium carbonate Take 1 tablet (500 0 02/13/2020 06/06/2020 (OS-THADDEUS) 1,250 mg (500 mg mg of calcium calcium) tablet total) by mouth daily with breakfast. Hold until taking oral diet. carBAMazepine (TEGretol) Take 300 mg by 2 [...] gabapentin (NEURONTIN) 50 2 mL (100 mg 42 mL 0 02/13/20 20 03/26/2020 mg/mL solution total) by gastric tube route every 8 (eight) hours for 7 days. lisinopril Take 10 mg by 2 11/20/2018 02/13/2020 (PRINIVIL,ZESTRIL) 10 mg mouth daily. tablet metoclopramide (REGLAN) 5 10 mL (10 mg 280 mL 0 02/13/20 20 06/06/2020 mg/5 mL solution total) by gastric tube route 4 (four) times a day before meals and bedtime for 7 days. multivitamin capsule Take 1 capsule by 0 02/13/2020 mouth daily. multivitamin capsule Take 1 capsule by 0 02/13/20 20 06/06/2020 mouth daily. Hold until taking oral diet. oxyCODONE (ROXICODONE) 5 Take 1 tablet (5 20 tablet 0 12/1502/13/2020 mg immediate release mg total) by mouth tabletIndications: Acute every 4 (four) Pain Exception hours as needed for pain or severe pain or score 7-10 of 10 Indication: Acute Pain Exception. oxyCODONE (ROXICODONE) 5 5 mL (5 mg total) 100 mL 0 01/2106/06/2020 mg/5 mL by gastric tube solutionIndications: route every 4 Acute Pain Exception (four) hours as needed for pain Indication: Acute Pain Exception. sennosides-docusate Take 2 tablets by 0 9 02/13/2020 sodium (SENNA WITH mouth at bedtime. DOCUSATE SODIUM) 8.6-50 Use while taking mg per tablet narcotics and until bowel movements normal. Hold for diarrhea. sennosides-docusate 2 tablets by 0 02/13/2020 sodium (Senna with gastric tube route Docusate Sodium) 8.6-50 at bedtime. Use mg per tablet while taking narcotics and until bowel movements normal. Hold for diarrhea. sodium chloride 0.9 % Infuse 5 mL into a 100 Syringe 1 01/1502/13/2020 injection venous catheter as needed for line care. documented as of this encounter Plan of Treatment Upcoming Encounters Date Type Specialty Care Team Description 05/12/2022 Appointment Radiology Jamel Terrazas APRN, C.N.P., D. N.P. [address] [place] [phone] (Vasiliy ac) 05/12/2022 Appointment Oral and Maxillofacial Issac Woodward, Leo Cline, D.D.S. [address] [place] [address] (Vasiliy ac) documented as of this encounter Procedures Procedure Name Priority Date/Time Associated Diagnosis Comme nts SARS CORONAVIRUS-2, Routine 02/04/2020 12:04 PM Encounter For Results for this PCR CDT Screening For Other procedur e are in Viral Diseases the results (COVID-19) section. SARS-COV-2 IGG AB, Routine 02/04/2020 11:56 AM Encounter For R esults for this SERUM CDT Screening For Other procedur e are in Viral Diseases the results (COVID-19) section. documented in this encounter Results SARS Coronavirus-2, PCR Asymptomatic (02/04/2020 12:04 PM CDT) [facility] Method Time Signature SARS Swab, 02/05/2020 DTL Coronavirus-2 Nasopharynx 9:35 AM CDT Source SARS Undetected Undetected 02/05/2020 DTL Coronavirus-2 9:35 AM CDT , PCR Comment: SARS-CoV-2 RNA absent. This result does not rule out COVID-19 in the patient, as the sensitivity of the test depends o n the timing of the specimen collection and quality of the specimen. Result should be correlated with patient's history and clinical presentat ion. ----ADDITIONAL INFORMATION---- This test was developed and its performa nce characteristics determined by [facility] in a manner co nsistent with CLIA requirements. Independent review by the U.S. Food and Drug Administration is pending. Visit the CDC website: https://www.cdc.gov/coronavirus/ ?? for the most recent guidelines on Benz virus testing. Fact Sheet for Healthcare Providers: (https://www.sharing.it.Friendster/it-mmfil es/ Provider_Fact_Sheet_for_[place]_COVI D-19.pdf) Fact Sheet for Patients: (https://www.sharing.it.Friendster/it-mmfil es/ Patient_Fact_Sheet_for_COVID-19.pdf) Specimen Anatomical Collection Method Collection Time Receive d Time (Source) Location / / Volume Laterality Varies 02/04/2020 12:04 02/04/2020 (Nasopharynx) PM CDT 12:04 PM CDT Issac Woodward M.D., SusySAmara LAB MICROBIOLOGY - GENERA L ORDERABLES Performing Organization Address City/State/ZIP Code Phon e Number [facility] - [address] [place], [place] [address] [facility] [place] [address] Laboratories-[facility] [address] SARS Coronavirus 2 IgG Ab, Serum (02/04/2020 11:56 AM CDT) P athologist Signature SARS-CoV-2 IgG Negative Negative 02/05/2020 [facility] Ab 1:29 PM CDT Comment: No IgG antibodies to SARS-CoV-2 detected . ?? Negative results may occur in serum jose ected too soon following infection, or in immunosuppres sed patients. ?? Follow-up testing with a molecular test is recommended in symptomatic patients. ??This test vidhya uld not be used to exclude active/recent COVID-19. ?? Testing was performed using the EUROIMMUN Xshj-LXYD-BtR-2 DELROY (IgG), which has received Emergency Use Authori zation (EUA) by the U.S. Food and Drug Administration . ?? Fact sheets for this EUA assay can be fo und at the following links: ?? Factsheet for healthcare Providers: ?? https://www.fda.gov/media/283653/downloa d Factsheet for healthcare Patients: ?? https://www.fda.gov/media/625818/downloa d Specimen Anatomical Collection Method Collection Time Receive d Time (Source) Location / / Volume Laterality Blood (Blood, 02/04/2020 11:56 02/05/2020 5:50 Venous) AM CDT AM CDT Issac Woodward M.D., D.D.S. LAB MICROBIOLOGY - BLOOD ORDERABLES Performing Organization Address [facility] Phon e Number [facility] [address] [place], [place] [address] [facility] [place] [address] Laboratory Medicine and Pathology [address] [place] documented in this encounter Visit Diagnoses Diagnosis Encounter For Screening For Other Viral Diseases (COVID-19) documented in this encounter Additional Health Concerns Infection Onset Date Last Indicated Resolved Time COVID19 Pending 02/04/2020 02/04/2020 02/05/2020 9:35 AM CDT documented as of this encounter
--- OUTSIDE RECORDS SUMMARY | 2022-05-05 14:42 | XMS_ITS | Encounter Summary ---
:1965 Author Organization [facility] Address [address] [place] [address] Care Team Providers Name Role Phone Unavailable Primary Care Provider Unavailable Encounter Details Date Type Department Care Team Description 02/07/2019 Clinical Communication Section of Infectious Wilberto Pfeiffer, Diseases in [place] [address] [address] [place] [address] Social History Tobacco Use Types Packs/Day Years Used Date Smoking Tobacco: Every Day Cigarettes 1 35 S tarted: 12/14/1984 Smokeless Tobacco: Never Alcohol Use Standard Drinks/Week Comments Yes 14 (1 standard drink = 0.6 oz pure alcoh ol) Sex Assigned at Date Recorded Female 12/22/2018 12:54 PM CDT documented as of this encounter Miscellaneous Notes Telephone Encounter - Mervin Pfeiffer M.D. - 02/07/2019 10:57 AM CDT Thanks, I called her. Telephone Encounter - Jayla Cadena - 02/07/2019 9:56 AM CDT Paola's jaw pain returned on Tuesday, 02/05 - she stopped her IV meds on 01/26/19 and was told to call you if her pain returned. Please call her at [phone]. Thanks. Jayla. documented in this encounter Plan of Treatment Upcoming Encounters Date Type Specialty Care Team Description 05/12/2022 Appointment Radiology Jamel Terrazas, RHONDA, C.N.P., D. N.P. [address] [place] [address] (Vasiliy rk) 05/12/2022 Appointment Oral and Maxillofacial Issac Woodward, Surgery Marlyn, D.D.S. [address] [place] [phone] (Vasiliy ac) documented as of this encounter Visit Diagnoses Not on filedocumented in this encounter
--- OUTSIDE RECORDS SUMMARY | 2022-05-05 14:42 | XMS_ITS | Encounter Summary ---
:1965 Author Organization [facility] Address [address] [place] [address] Care Team Providers Name Role Phone Unavailable Primary Care Provider Unavailable Reason for Visit Reason Comments Procedure Encounter Details Date Type Department Care Team Description 01/26/2019 Infusion Department of Infusion Mervin Pfeiffer Ost eomyelitis Mandible Therapy in [facility] Marlyn Chronpromise c [place] [address] [place] [phone] Social History Tobacco Use Types Packs/Day Years [...] Sign Reading Time Taken Comments Blood Pressure 121/89 01/26/2019 3:30 PM CDT Pulse 74 01/26/2019 3:30 PM CDT Temperature 37 ??C (98.6 ??F) 01/26/2019 3:30 PM CDT Respiratory Rate 16 01/26/2019 3:30 PM CDT Oxygen Saturation - - Inhaled Oxygen Concentration - - Weight - - Height - - Body Mass Index - - documented in this encounter Plan of Treatment Upcoming Encounters Date Type Specialty Care Team Description 05/12/2022 Appointment Radiology Jamel Terrazas APRN, C.N.P., D. N.P. [address] [place] [phone] (Wo rk) 05/12/2022 Appointment Oral and Maxillofacial Issac Woodward, Surgery Marlyn, D.D.S. [address] [place] [address] [place] [phone] (Wo rk) documented as of this encounter Visit Diagnoses Diagnosis Osteomyelitis Mandible Chronic documented in this encounter
--- OUTSIDE RECORDS SUMMARY | 2022-05-05 14:42 | XMS_ITS | Encounter Summary ---
:1965 Author Organization [facility] Address [address] [place] [address] Care Team Providers Name Role Phone Unavailable Primary Care Provider Unavailable Reason for Visit Reason Onset Date Comments OPAT Normal Labs 01/05/2019 Encounter Details Date Type Department Care Team Description 01/05/2019 Clinical Communication Section of Lakshmi Clifton OPAT Normal Labs Infectious Diseases M, R.N. in [place], [address] [place] [address] [place] [phone] [place], [place] [phone] (Work) [phone] Social History Tobacco Use Types Packs/Day Years Used Date Smoking Tobacco: Every Day Cigarettes 1 35 S tarted: 12/14/1984 Smokeless Tobacco: Never Alcohol Use Standard Drinks/Week Comments Yes 14 (1 standard drink = 0.6 oz pure alcoh ol) Sex Assigned at Date Recorded Female 12/22/2018 12:54 PM CDT documented as of this encounter Miscellaneous Notes Telephone Encounter - Lakshmi Clifton, R.N. - 01/05/2019 9:11 AM CDT OPAT NOTE Infusion Provider: [email or web address] [facility], phone: [phone] Antimicrobial(s) currently prescribed: See medication list in Epic. Tentative stop date: 01/25/2019; final stop date to be determined at follow up visit. Date of ID follow up appt: 12/27/2018. OPAT labs: were received by fax. 12/21/2018 12/28/2018 01/04/2019 WBC 5.8 6.0 5.7 ANC 3300 3500 3400 HGB 13.1 12.5 13.0 Platelets 274 298 295 ALT 68 (0-50) 92 71 Creatinine 0.79 0.78 0.92 Patient's antibiotic therapy does not require drug level monitoring (see above). Interpretation and action: Labs were reviewed and satisfactory per [facility] Practice Nursing Guideline. documented in this encounter Plan of Treatment Upcoming Encounters Date Type Specialty Care Team Description 05/12/2022 Appointment Radiology Jamel Terrazas, EDUCATIONAL DIRECTOR, C.N.P., D. N.P. [address] [place] [phone] (Wo rk) 05/12/2022 Appointment Oral and Maxillofacial Issac Woodward, Surgery Marlyn, D.D.S. [address] [place] [phone] (Wo rk) documented as of this encounter Visit Diagnoses Not on filedocumented in this encounter
--- OUTSIDE RECORDS SUMMARY | 2022-05-05 14:42 | XMS_ITS | Encounter Summary ---
:1965 Author Organization [facility] Address [address] [place] [address] Care Team Providers Name Role Phone Unavailable Primary Care Provider Unavailable Encounter Details Date Type Department Care Team Description 06/05/2019 Clinical Communication Division of Oral and Issac Woodward Maxillofacial Surgery in Marlyn Raymundo , D.Ruma.S. [place], [place] [address] [facility] [address] [place] [phone] Social History Tobacco Use Types Packs/Day Years Used Date Smoking Tobacco: Every Day Cigarettes 1 35 S tarted: 12/14/1984 Smokeless Tobacco: Never Alcohol Use Standard Drinks/Week Comments Yes 14 (1 standard drink = 0.6 oz pure alcoh ol) Sex Assigned at Date Recorded Female 12/22/2018 12:54 PM CDT documented as of this encounter Miscellaneous Notes Telephone Encounter - Issac Woodward M.D., Ruma.D.S. - 06/05/2019 9:33 AM CDT No script without re-eval Telephone Encounter - Jayla Vargas L.D.A. - 06/05/2019 9:31 AM CDT Thoughts on Sofía, she didn't mention any of this last week when she was in, I can call her and get more info and see if something has changed Telephone Encounter - Mallory Ness - 06/05/2019 9:22 AM CDT Mrs. Mcmullen called in wondering what she can do to alleviate the pain she is experiencing. She states she has been using over the counter medication and that is not even touching the pain. She is wondering if there is something Dr. Woodward can prescribe to her. Please call her to discuss at [phone]. She said we can leave a message since its hard to answer her phone at work. Thank you Preferred Pharmacy is [facility] in [place] documented in this encounter Plan of Treatment Upcoming Encounters Date Type Specialty Care Team Description 05/12/2022 Appointment Radiology Jamel Terrazas APRN, C.N.P., D. N.P. [address] [place] [phone] (Wo yashira) 05/12/2022 Appointment Oral and Maxillofacial Issac Woodward, Leo Cline, D.D.S. [address] [place] [phone] (Wo rk) documented as of this encounter Visit Diagnoses Not on filedocumented in this encounter
--- OUTSIDE RECORDS SUMMARY | 2022-05-05 14:42 | XMS_ITS | Encounter Summary ---
:1965 Author Organization [facility] Address [address] [place] [address] Care Team Providers Name Role Phone Unavailable Primary Care Provider Unavailable Encounter Details Date Type Department Care Team Description 01/17/2020 Clinical Communication Division of Oral and Issac Woodward Maxillofacial Surgery in Marlyn Raymundo , D.D.S. [place], [place] [address] [facility] [address] [place] [phone] Social History Tobacco Use Types Packs/Day Years Used Date Smoking Tobacco: Every Day Cigarettes 1 35 S tarted: 12/14/1984 Smokeless Tobacco: Never Alcohol Use Standard Drinks/Week Comments Yes 14 (1 standard drink = 0.6 oz pure alcoh ol) Sex Assigned at Date Recorded Female 12/22/2018 12:54 PM CDT documented as of this encounter Miscellaneous Notes Telephone Encounter - Issac Woodward M.D., D.D.S. - 01/17/2020 1:31 PM CDT Was able to speak with Mrs. Mcmullen today to alert her of the results of her lower extremity CT scan which did demonstrate appropriate vascularity both the right and left leg. The left side did demonstrate some distal attenuation of the caliber of the peroneal artery, but good contrast opacification beyond the ankle in both the anterior tibial and posterior tibial vessels. Therefore a fibular free flap would be a viable option the either the left or right sides. We did discuss that we could select the left leg to reconstruct the right mandible and allow her greater ease of driving following surgery if she doesn't require a CAM boot on the RLE. She was in agreement with this. She is currently in the process of coordinating her outpatient IV infusions. She did receive her PICC line yesterday. Willplan for 3-4 weeks of IV antibiotic therapy prior to completing the mandibular resection and fibularfree flap reconstruction. Our team will reach out to her regarding selection of a surgical date to accommodate 3-4 week IV antibiotic time frame. Questions were welcomed and answered. She was appreciative of the follow-up phone call. This concluded the phone conversation. Electronically signed by: Issac Woodward M.D., D.D.S. 01/17/20 1:33 PM CDT documented in this encounter Plan of Treatment Upcoming Encounters Date Type Specialty Care Team Description 05/12/2022 Appointment Radiology Jamel Terrazas APRN, C.N.P., D. N.P. [address] [place] [phone] (Vasiliy ac) 05/12/2022 Appointment Oral and Maxillofacial Issac Woodward, Surgery Marlyn, D.D.S. [address] [place] [phone] (Vasiliy ac) documented as of this encounter Visit Diagnoses Not on filedocumented in this encounter
--- OUTSIDE RECORDS SUMMARY | 2022-05-05 14:42 | XMS_ITS | Encounter Summary ---
:1965 Author Organization [facility] Address [address] [place] [address] Care Team Providers Name Role Phone Unavailable Primary Care Provider Unavailable Encounter Details Date Type Department Care Team Description 01/16/2020 Documentation Department of Social Work [facility], in [facility] ShavonSIoana, M.S.W. [address] [facility] [address] [place] [address] [place], [place] [phone] Social History Tobacco Use Types Packs/Day Years Used Date Smoking Tobacco: Every Day Cigarettes 1 35 S tarted: 12/14/1984 Smokeless Tobacco: Never Alcohol Use Standard Drinks/Week Comments Yes 14 (1 standard drink = 0.6 oz pure alcoh ol) Sex Assigned at Date Recorded Female 12/22/2018 12:54 PM CDT documented as of this encounter Progress Notes [facility] Long L.I.C.SIoana, M.S.W. - 01/16/2020 11:59 PM CDT Patient???s goal is to return home with family support and home infusions. Individuals have been identified who are willing and able to learn the infusion technique. Patient phone [phone]. Infusion [facility] [address] [phone] Contact: Luke Booth will provide the medication and supplies for this patient. NURSING: - Fax the prescriptions noted above and labs to the agency. - Be sure the patient receives a dose prior to departure from [facility]. PRIMARY SERVICE: - Prescription needs to be completed. - Prescription needs to include: - Orders for IV meds with a stop date - Normal Saline/Heparin flushes and site care for IV access - Recommendations for any lab work while on IV therapy - Discontinue IV access at completion of therapy - Contact primary care provider for writing IV orders, monitoring of labs/levels and any other continuing care needs. Home Health Care will manage site care and lab draws: Home Medical [facility] [address], [place] [phone] Contact: [facility] agency will contact patient to schedule date and time of first visit. NURSING: - Fax home health care order, labs and any other supporting documentation. PRIMARY SERVICE: -Please provide an order for: Home Health Care, Flushes, Infusion company to provide medication. -Communicate with the patient???s local primary care provider by telephone for writing of home careorders. This needs to be done to help ensure orders are signed after the start of services. SOCIAL WORK -Will continue to follow as needed. documented in this encounter Plan of Treatment Upcoming Encounters Date Type Specialty Care Team Description 05/12/2022 Appointment Radiology Jamel Terrazas APRN, C.N.P., D. N.P. [address] [place] [phone] (Vasiliy ac) 05/12/2022 Appointment Oral and Maxillofacial Issac Woodward, Surgery M.Shad, D.D.S. [address] [place] [phone] (Vasiliy rk) documented as of this encounter Visit Diagnoses Not on filedocumented in this encounter
--- OUTSIDE RECORDS SUMMARY | 2022-05-05 14:42 | XMS_ITS | Encounter Summary ---
:1965 Author Organization [facility] Address [address] [place] [address] Care Team Providers Name Role Phone Unavailable Primary Care Provider Unavailable Encounter Details Date Type Department Care Team Description 12/27/2018 Hospital Encounter Division of Oral and CrissyIssac S, Maxillofacial Surgery in Marlyn, D .D.S. [place], [place] [address] [facility] [address] [place] [phone] Social History Tobacco Use Types Packs/Day Years [...] Sig Dispensed Refills Start Date End Date ertapenem (INVanz) 100 Infuse 10 mL (1 g 300 mL 1 201801/25/2019 mg/mL injection total) into a venous catheter daily. sodium chloride 0.9 % Infuse 5 mL into a 30 Syringe 2 201801/25/2019 injection venous catheter every 8 (eight) hours. Flush PICC line per protocol. acetaminophen (TYLENOL) Take 2 tablets 0 12/16/19 19 02/13/2020 500 mg tablet (1,000 mg total) by mouth every 6 (six) hours. calcium carbonate Take 500 mg of 0 (OS-THADDEUS) 1,250 mg (500 mg calcium by mouth calcium) tablet daily with breakfast. carBAMazepine (TEGretol) Take 300 mg by 2 11/18/2 019 02/13/2020 200 mg tablet mouth 2 [...] Terrazas APRN, C.N.P., D. N.P. [address] [place] [address] (Wo rk) 05/12/2022 Appointment Oral and Maxillofacial Issac Woodward, Leo Cline, D.D.S. [address] [place] [phone] (Wo yashira) documented as of this encounter Results OMS Panorex (12/27/2018 11:21 AM CDT) Specimen (Source) Anatomical Location Collection Method / Collectio n Time Received Time / Laterality Volume Narrative This result has an attachment that is no t available. Issac Woodward M.D., ShadD.S. PROCEDURE/MINOR SURGICAL ORDERABLES documented in this encounter Visit Diagnoses Not on filedocumented in this encounter
--- OUTSIDE RECORDS SUMMARY | 2022-05-05 14:42 | XMS_ITS | Encounter Summary ---
:1965 Author Organization [facility] Address [address] [place] [address] Care Team Providers Name Role Phone Unavailable Primary Care Provider Unavailable Encounter Details Date Type Department Care Team Description 02/07/2019 Documentation Section of Infectious Mervin Pfeiffer M.D . Diseases in [place], [place] [address] [place] [address] Social History Tobacco Use Types Packs/Day Years Used Date Smoking Tobacco: Every Day Cigarettes 1 35 S tarted: 12/14/1984 Smokeless Tobacco: Never Alcohol Use Standard Drinks/Week Comments Yes 14 (1 standard drink = 0.6 oz pure alcoh ol) Sex Assigned at Date Recorded Female 12/22/2018 12:54 PM CDT documented as of this encounter Progress Notes Mervin Pfeiffer M.D. - 02/07/2019 10:41 AM CDT Mrs. Mcmullen completed IV antibiotics on 01/26/19. On 02/05/19, her jaw pain returned, and she was advised to call the Infectious Disease department. I called her at [phone] to discuss her symptoms more. She stated that the pain on Tuesday returned. Since the surgery, her jaw was numb, but on Tuesday, the pain just hit her when she opened her jaw. She didn't want to start take Ibuprofen and Tylenol all over again. She has not taken any pain medications for this at all. She was previously taking too much, and our OPAT team before told her that her LFT's were rising. She is not having any fevers, chills, or sweats. She is not having any purulence from the jaw. She has some jaw pain when she yawnsor opens her mouth wide. She has no jaw stiffness. Her current symptoms felt like her initial presentation with osteomyelitis. However, she has gotten enough antibiotics for her osteomyelitis already. She has a little diarrhea; this has been going on for 3 weeks. She is having 3-5 stools per day, andsometimes, it is yellow and foamy. It is mostly liquid. Typically, she has just 2 stools per day. Itis usually solid. On Tuesday, she took Pepto-Bismol, but this did not help. RECOMMENDATIONS - Obtain a C. Difficile PCR. She will provide a stool sample at [facility], which is at [address] [facility] [address]. - I advised that she have a physical exam of the mouth. She said her family doctor and dentist at [facility] did not feel comfortable managing her osteomyelitis, so she asked if she could go to the [facility] in [place] because [place] is a bit far for her. I said I would reach out to her oral surgeon here at [facility] for recommendations. documented in this encounter Plan of Treatment Upcoming Encounters Date Type Specialty Care Team Description 05/12/2022 Appointment Radiology Jamel Terrazas APRN, C.N.P., D. N.P. [address] [place] [phone] (Wo yashira) 05/12/2022 Appointment Oral and Maxillofacial Issac Woodward, Leo Cline, D.D.S. [address] [place] [phone] (Wo yashira) documented as of this encounter Visit Diagnoses Not on filedocumented in this encounter
--- OUTSIDE RECORDS SUMMARY | 2022-05-05 14:42 | XMS_ITS | Encounter Summary ---
:1965 Author Organization [facility] Address [address] [place] [address] Care Team Providers Name Role Phone Unavailable Primary Care Provider Unavailable Reason for Visit Reason Onset Date Comments OPAT Normal Labs 01/18/2019 Encounter Details Date Type Department Care Team Description 01/18/2019 Clinical Communication Section of Lakshmi Clifton OPAT Normal Labs Infectious Diseases M, R.N. in [place], [address] [place] [address] [place] [phone] [place], [place] [phone] (Work) [phone] Social History Tobacco Use Types Packs/Day Years Used Date Smoking Tobacco: Every Day Cigarettes 1 35 S tarted: 12/14/1984 Smokeless Tobacco: Never Alcohol Use Standard Drinks/Week Comments Yes 14 (1 standard drink = 0.6 oz pure alcoh ol) Sex Assigned at Date Recorded Female 12/22/2018 12:54 PM CDT documented as of this encounter Miscellaneous Notes Telephone Encounter - Lakshmi Clifton M, R.N. - 01/18/2019 3:57 PM CDT OPAT NOTE Infusion Provider: [employer] [facility], phone: [phone] Antimicrobial(s) currently prescribed: See medication list in Epic. Tentative stop date: 01/25/2019; final stop date to be determined at follow up visit. Date of ID follow up appt: 12/27/2018. OPAT labs: were received by fax. 12/21/2018 12/28/2018 01/04/2019 01/11/2019 01/18/2019 WBC 5.8 6.0 5.7 5.7 5.8 ANC 3300 3500 3400 3400 3500 HGB 13.1 12.5 13.0 13.0 13.5 Platelets 274 298 295 253 278 ALT 68 (0-50) 92 71 55 58 Creatinine 0.79 0.78 0.92 0.75 0.71 Patient's antibiotic therapy does not require drug level monitoring (see above). Interpretation and action: Labs were reviewed and satisfactory per [facility] Practice Nursing Guideline. documented in this encounter Plan of Treatment Upcoming Encounters Date Type Specialty Care Team Description 05/12/2022 Appointment Radiology Jamel Terrazas APRN, C.N.P., D. N.P. [address] [place] [phone] (Vasiliy rk) 05/12/2022 Appointment Oral and Maxillofacial Issac Woodward Surgery M.D., D.D.S. [address] [place] [phone] (Wo rk) documented as of this encounter Visit Diagnoses Not on filedocumented in this encounter
--- OUTSIDE RECORDS SUMMARY | 2022-05-05 14:42 | XMS_ITS | Encounter Summary ---
:1965 Author Organization [facility] Address [address] [place] [address] Care Team Providers Name Role Phone Unavailable Primary Care Provider Unavailable Reason for Visit Reason Comments OPAT Intervention Encounter Details Date Type Department Care Team Description 01/29/2020 Clinical Communication Section of Jeremy Hall (Intervention) Infectious Diseases E, R.N. in [place], [address] [place] [address] [address] [facility] [address] [place], [place] [phone] (Work) [phone] Social History Tobacco Use Types Packs/Day Years Used Date Smoking Tobacco: Every Day Cigarettes 1 35 S tarted: 12/14/1984 Smokeless Tobacco: Never Alcohol Use Standard Drinks/Week Comments Yes 14 (1 standard drink = 0.6 oz pure alcoh ol) Sex Assigned at Date Recorded Female 12/22/2018 12:54 PM CDT documented as of this encounter Miscellaneous Notes Telephone Encounter - Fabi Wakefield, PharmAmaraD., R.Ph. - 01/29/2020 2:21 PM CDT Pertinent labs and antimicrobial regimen as indicated per chart review were assessed. Patient is on ertapenem for Bone or joint Infection . Creatinine with eGFR abnormality is mild. Lab abnormality evaluated and is not related to ertapenem per pharmacist evaluation. The dose of theantimicrobial(s) is affected by the lab abnormality. Her calculated CrCl is 59 ml/min based on adjusted body weight of 73.5 kg and the ertapenem dose remains appropriate at 1 gm q24 hours (dose reduction starts at CrCl <30). Continue with the current antimicrobials and monitoring plan at this time. Telephone Encounter - Jeremy Hall R.N. - 01/29/2020 1:02 PM CDT OPAT NOTE Infusion Provider: Viktor Horne, phone: [phone] Standing Orders. Antimicrobial(s) currently prescribed: See Med List Hyperlink in note Tentative stop date: 02/11/20; final stop date to be determined following surgery, which is planned for 02/07/20. OPAT labs were received via fax from [facility]. 01/28/20 WBC 5.0 ANC 3100 HGB 12.7 Platelets 270 ALT (8-45) 57 Creatinine 1.22 Patient's antibiotic therapy does not require drug level monitoring (see above). Interpretation and action: Labs will be sent to the OPAT pharmacist to review the creatinine which is up from 0.8 at hospital dismissal. documented in this encounter Plan of Treatment Upcoming Encounters Date Type Specialty Care Team Description 05/12/2022 Appointment Radiology Jamel Terrazas APRN, C.N.P., D. N.P. [address] [place] [phone] (Vasiliy ac) 05/12/2022 Appointment Oral and Maxillofacial Issac Woodward, Surgery Marlyn, D.D.S. [address] [place] [phone] (Vasiliy ac) documented as of this encounter Visit Diagnoses Not on filedocumented in this encounter
--- OUTSIDE RECORDS SUMMARY | 2022-05-05 14:43 | XMS_ITS | Encounter Summary ---
:1965 Author Organization [facility] Address [address] [place] [id number] Care Team Providers Name Role Phone Unavailable Primary Care Provider Unavailable Reason for Visit Auth/Cert Specialty Diagnoses / Procedures Referred By Contact Refer red To Contact Diagnoses Osteomyelitis Mandible Chronic Procedures IN BX BN OPN SUPFCL EXPLORATION INCISION~right mandible BIOPSY MANDIBLE~cultures right mandible M27.2 (ICD-10-CM) - Osteomyelitis Mandible Chronic Referral ID Status Reason Start Date Expiration Date Visits Requ ested Visits Authorized [id number] 1 1 Encounter Details Date Type Department Care Team Description 12/14/2018 Anesthesia Event RST ROMB MAIN OR Mejia Kelley M.D. [address] [place] [phone] 1216 [address]ND [facility] Michelle Mandujano, UMA, DNAP, A.P.N.P. [address] [place] [phone] [place] [phone] Anesthesia Record Procedure Summary Procedure Name Responsible Anesthesia Start Anesthesia Stop Anesthesiologist Time Time EXPLORATION Right Mejia Kelley M.D. 12/14/18 0753 12/14/18 0 925 Posterior Mandible. (Right) Events Date Time Event Comment 12/14/2018 0753 An Start Machine/Equipmen t Checked Infection Precautions Foll owed Procedure/Site Verified NPO Sta tus Verified Supine Standard ASA Mon itors Applied 0753 In Room 0806 An Induction 0811 An Intubation 0816 Turnover to Proceduralist 0826 Proc Start 0902 Proc Fin 0905 Turnover to ANE Staff 0907 Airway Removal Criteria Met 0907 Extubation/Airway Removed 0911 an stop data 0913 Out of Room 0925 An End I completed my h andoff to the receiving staff during [facility] we 1. Identified the patient 2. Ident ified the responsible provider 3. Revi ewed the pertinent medical history 4. Discussed the surgical course 5. Review ed intra-op anesthesia management and i ssues during anesthesia 6. Set expectati ons for post-procedure period 7. Allowe d opportunity for questions and ac knowledgement of understanding. Name Total lidocaine 2% (mg) injection 80 mg propofol 10 mg/mL 200 mg succinylcholine 20 mg/mL injection 120 mg ondansetron 4 mg/2 mL injection 4 mg ePHEDrine PF 5 mg/mL syringe injection 5 mg propofol 10 mg/mL infusion 464.1 mg remifentanil 20 mcg/mL in NaCl 0.9% 250 mL infusion (U LTIVA) 1 mg dexamethasone 4 mg/mL injection 4 mg oxymetazoline 0.05% nasal 2 spray fentaNYL 50 mcg/mL injection 100 mcg acetaminophen 10 mg/mL injection 1,000 mg ceFAZolin 2 g Lactated Ringers Free Drip 900 mL Agents No agents on file. Blood No blood administrations on file. Lines, Drains, and Airways Type Details Placement Removal Peripheral IV Placement Date: 12/14/18; 12/14/18 0724 by 12/15 1500 by Placement Time: 0724; Carina Donaldson Kristine N, Catheter Size: 18 G; R.N. Orientation: Left; Location: Forearm; Site Prep: Chlorhexidine (Preferred); Technique: (rashel); Insertion Attempts: 1; Removal Date: 12/15/18; Removal Time: 1500; Removal Reason: Patient discharged ETT Placement Date: 12/14/18; 12/14/18 08 by 12/14 0907 by Placement Time: 0811 Michelle Mandujano, Michelle Hebert, (created via procedure DIGESTER HAND, DNAP, A.P.N.P. DIGESTER HAND , DNAP, A.P.N.P. documentation); Mask Ventilation: Easy mask; Type: Melva; Cuffed: Yes; Location: Right nare (Right nare); Removal Date: 12/14/18; Removal Time: 906 (RETIRED) Incision 12/14/18; 09; Mouth; 12/14/18 0902 by 05/12 1418 by Right; 05/12/21 (Removed Meysha Valenzuela, [facility] by background completion RAmaraNAmara hutchinson, Sche pascaleing utility); 1418 (Removed Automate d Batch Job by background completion utility) documented in this encounter [...] encounter OR Notes Anesthesia Postprocedure Evaluation - Issac Jenkins M.D. - 12/14/2018 11:55 AM CDT Patient: Paola Mcmullen Procedure Summary Date: 12/14/18 Room / Location: [place] [address] / [facility] in [place], [place] Anesthesia Start: 0753 Anesthesia Stop: 924 Procedures: EXPLORATION Right Posterior Mandible. (Right ) Biopsy and Bone Culture Right Mandible. (Right ) Diagnosis: Osteomyelitis Mandible Chronic (Osteomyelitis Mandible Chronic [M27.2].) Provider: Issac Woodward M.D., D.D.S. Responsible Provider: Mejia Kelley M.D. Anesthesia Type: general ASA Status: 2 Anesthesia Type: general Last vitals Vitals Value Taken Time BP 144/81 12/14/2018 11:50 AM Temp 37.3 ??C 12/14/2018 11:15 AM Pulse 83 12/14/2018 11:55 AM Resp 14 12/14/2018 11:55 AM SpO2 94 % 12/14/2018 11:55 AM Vitals shown include unvalidated device data. Please reference Vitals flowsheet for most recent vital signs. Anesthesia Post Evaluation Patient Disposition: general care unit Cardiovascular status: hemodynamics (HR & BP) acceptable Respiratory status: patent airway with spontaneous effort Temperature: normothermic Oxygen requirements: room air Level of consciousness: awake Pain score: pain adequately controlled and/or at baseline Post Op nausea/vomiting: none Hydration status: euvolemic Anesthesia Preprocedure Evaluation - Mejia Kelley M.D. - 12/14/2018 8:26 AM CDT Anesthesia Pre-Evaluation Pertinent components of the patient's history including current problem list, medical history, surgical history, family history, social history, medications and allergies were reviewed and updated as appropriate. The patient was examined and the Pre-op diagnosis, planned procedure, and H&P were reviewed and remain unchanged. PROBLEM LIST Relevant Problems CV (+) Hypertension Essential Primary RESP (+) Obstructive Sleep Apnea Adult OBJECTIVE PHYSICAL EXAMINATION Airway (HEENT) Mallampati: IV TM Distance: <3 FB Neck ROM: Full Mouth Opening: >3 cm Cardiovascular Rhythm: Regular Rate: Normal Cardiovascular Assessment: cardiovascular normal Pulmonary Pulmonary Assessment: Clear Neurological Neurologic Assessment:??alert Dental Dental Assessment: dentition intact General / Constitutional Constitutional Assessment: Normal ASSESSMENT / PLAN ANESTHESIA PLAN ASA: 2 Anesthesia Plan: general TIVA with propofol and remifentanil. Triple antiemetics. Patient seen and allergies reviewed; anesthesia plan and risks discussed directly with patient / legal guardian, or through an japanese interpreter; patient evaluated and approved for anesthesia / sedation. The use of blood products not discussed Anesthesia Procedure Notes - Michelle Miller RAmaraNAmara, CCRN - 12/14/2018 8:20 AM CDTAssociated Order(s): AIRWAY MANAGEMENT Airway Date/Time: 12/14/2018 8:11 AM Patient location during procedure: OR / Procedure Area Performed by: MICHELLE MILLER Authorized by: MEJIA KELLEY Pre procedure details Pre evaluation for airway management: procedure Urgency: elective Preop assessment of probable difficulty: no difficulty anticipated Sedation level: anesthetized Preoxygenation: bag valve mask Procedure details Mask difficulty assessment: easy mask Final airway type: video laryngoscope Laryngeal Manipulation: no Final best view of glottic structures - Cormack/Lehane Score: grade 1 ETT location: nasal (Right nare) VL device: glide scope Douglass scope blade size: 3 Adult ETT distance at teeth/gum: 25 Nasal tube type: melva Cuffed: yes Number of attempt to successful placement: 1 Airway confirmation: bilateral breath sounds, positive ETCO2 and bilateral chest rise Other previous techniques attempted: none Post procedure details Procedure outcome: successful Airway event: no complications documented in this encounter Plan of Treatment Upcoming Encounters Date Type Specialty Care Team Description 05/12/2022 Appointment Radiology Jamel Terrazas WEB EDITOR, C.N.P., D. N.P. [address] [place] [phone] (Wo rk) 05/12/2022 Appointment Oral and Maxillofacial Issac Woodward, Surgery Marlyn, D.D.S. [address] [place] [address] [phone] (Wo rk) documented as of this encounter Procedures Procedure Name Priority Date/Time Associated Comments Diagnosis LDA ANE ENDOTRACHEAL Routine 12/14/2018 8:20 AM R esults for this AIRWAY CDT procedure are i n the results section. documented in this encounter Results LDA ANE ENDOTRACHEAL AIRWAY (12/14/2018 8:20 AM CDT) Narrative Michelle Miller, HellenNAmara, CCRN - 12/14/2018 8:20 AM CDT Michelle Miller R.N., SHAYLA ? 12/14/2018 ??8:23 AM Airway Date/Time: 12/14/2018 8:11 AM Patient location during procedure: OR / Procedure Area Performed by: MICHELLE MILLER Authorized by: MEJIA KELLEY Pre procedure details ?? Pre evaluation for airway management : procedure ?? Urgency: elective ?? Preop assessment of probable difficu lty: no difficulty anticipated ?? Sedation level: anesthetized ?? Preoxygenation: bag valve mask Procedure details ??Mask difficulty assessment: easy mask ?? Final airway type: video laryngoscop e Laryngeal Manipulation: no ? Final best view of glottic structure s - Cormack/Lehane Score: grade 1 ?? ETT location: nasal (Right nare) ?? VL device: glide scope ?? Douglass scope blade size: 3 ?? Adult ETT distance at teeth/gum: 25 ?? Nasal tube type: melva ?? Cuffed: yes ?? Number of attempt to successful plac ement: 1 ?? Airway confirmation: bilateral breat h sounds, positive ETCO2 and bilateral chest rise ?? Other previous techniques attempted: none Post procedure details ?? Procedure outcome: successful ? Airway event: no complications Procedure Note Michelle Miller, R.N., CCRN - 12/14/2018 8:20 AM CDT Airway Date/Time: 12/14/2018 8:11 AM Patient location during procedure: OR / Procedure Area Performed by: MICHELLE MILLER Authorized by: MEJIA KELLEY Pre procedure details Pre evaluation for airway management: p rocedure Urgency: elective Preop assessment of probable difficulty : no difficulty anticipated Sedation level: anesthetized Preoxygenation: bag valve mask Procedure details Mask difficulty assessment: easy mask Final airway type: video laryngoscope Laryngeal Manipulation: no Final best view of glottic structures - Cormack/Lehane Score: grade 1 ETT location: nasal (Right nare) VL device: glide scope Douglass scope blade size: 3 Adult ETT distance at teeth/gum: 25 Nasal tube type: melva Cuffed: yes Number of attempt to successful placeme nt: 1 Airway confirmation: bilateral breath s ounds, positive ETCO2 and bilateral chest rise Other previous techniques attempted: no ne Post procedure details Procedure outcome: successful Airway event: no complications Mejia Kelley M.D. ANESTHESIA ORDERABLES documented in this encounter Visit Diagnoses Not on filedocumented in this encounter Administered Medications Inactive Administered Medications - up to 3 most recent administrations Medication Order MAR Action Action Date Dose Rate Site acetaminophen injection Given 12/14/2018 8:57 AM CDT 1,000 mg (OFIRMEV) Administer over 15 Minutes, As needed, Starting on Bernie 12/14/18 at 0857, Anesthesia Intra-op ceFAZolin injection (ANCEF) Given 12/14/2018 9:03 AM CDT 2 g As needed, Starting on Bernie 12/14/18 at 0903, Anesthesia Intra-op dexamethasone injection (DECADRON) Given 12/14/2018 8:28 AM CDT 4 mg As needed, Starting on Bernie 12/14/18 at 0828, Anesthesia Intra-op ePHEDrine (PF) injection Given 12/14/2018 8:26 AM CDT 5 mg intravenous, As needed, Starting on Bernie 12/14/18 at 0826, Anesthesia Intra-op fentaNYL injection (SUBLIMAZE) Given 12/14/2018 8:06 AM CDT 100 mcg As needed, severe pain or score 7-10 of 10, Starting on Bernie 12/14/18 at 0806, Anesthesia Intra-op lactated ringers New Bag 12/14/2018 7:54 AM CDT intravenous, Continuous Infusion: Per Instructions PRN, Starting on Bernie 12/14/18 at 0754, Anesthesia Intra-op lidocaine (PF) (cardiac) injection Given 12/14/2018 8:06 AM CDT 80 mg intravenous, As needed, Starting on Bernie 12/14/18 at 0806, Anesthesia Intra-op ondansetron (PF) injection (ZOFRAN) Given 12/14/2018 8:53 AM CDT 4 mg intravenous, As needed, nausea, vomiting, Starting on Bernie 12/14/18 at 0853, Anesthesia Intra-op oxymetazoline 0.05 % nasal spray (AFRIN) Given 12/14/2018 7:50 AM CDT 2 sprays As needed, congestion, Starting on Bernie 12/14/18 at 0750, Anesthesia Intra-op propofol 10 mg/mL infusion Rate/Dose 12/14/2018 8:50 80 mcg/kg/min 3 7.4 mL/hr (DIPRIVAN) Change AM CDT intravenous, Continuous Infusion: Per Instructions PRN, Starting on Bernie 12/14/18 at 0808, Anesthesia Intra-op Rate/Dose Change 12/14/2018 8:30 AM CDT 120 mcg/kg/min 56.2 mL/hr Rate/Dose Change 12/14/2018 8:20 AM CDT 110 mcg/kg/min 51.5 mL/hr propofol injection (DIPRIVAN) Given 12/14/2018 8:10 AM CDT 50 mg intravenous, As needed, Starting on Bernie 12/14/18 at 0806, Anesthesia Intra-op Given 12/14/2018 8:06 AM CDT 150 mg remifentanil 20 mcg/mL in Rate/Dose 12/14/2018 8:55 0.1 mcg/kg/min 2 3.4 mL/hr NaCl 0.9% 250 mL infusion Change AM CDT (ULTIVA) Continuous Infusion: Per Instructions PRN, Starting on Bernie 12/14/18 at 0806, Anesthesia Intra-op Rate/Dose Change 12/14/2018 8:50 AM CDT 0.2 mcg/kg/min 46.8 mL/hr Rate/Dose Change 12/14/2018 8:25 AM CDT 0.3 mcg/kg/min 70.2 mL/hr succinylcholine-0.9% NaCl (PF) injection Given 12/14/2018 8:08 A M CDT 120 mg (ANECTINE) intravenous, As needed, Starting on Bernie 12/14/18 at 0808, Anesthesia Intra-op documented in this encounter
--- OUTSIDE RECORDS SUMMARY | 2022-05-05 14:43 | XMS_ITS | Encounter Summary ---
:1965 Author Organization [facility] Address [address] [place] [address] Care Team Providers Name Role Phone Unavailable Primary Care Provider Unavailable Encounter Details Date Type Department Care Team Description 12/15/2018 Episode Changes RST HIM Cira Huertas [address] [place] [phone] Social History Tobacco Use Types Packs/Day Years [...] Terrazas APRN, C.N.P., D. N.P. [address] [place] [phone] (Wo rk) 05/12/2022 Appointment Oral and Maxillofacial Issac Woodward, Surgery Marlyn, D.D.S. [address] [place] [phone] (Wo rk) documented as of this encounter Visit Diagnoses Not on filedocumented in this encounter
--- OUTSIDE RECORDS SUMMARY | 2022-05-05 14:43 | XMS_ITS | Encounter Summary ---
:1965 Author Organization [facility] Address [address] [place] [address] Care Team Providers Name Role Phone Unavailable Primary Care Provider Unavailable Reason for Visit Outpatient (Routine) - Closed Specialty Diagnoses / Procedures Referred By Contact Refer red To Contact Infectious Diseases Diagnoses [facility] Marlyn Vidal [address] [place] [phone] Referral ID Status Reason Start Date Expiration Date Visits Requ ested Visits Authorized [id number] Closed 12/15/2018 12/15/2019 1 1 Encounter Details Date Type Department Care Team Description 12/22/2018 Office Visit Section of Infectious Mervin Pfeiffer, Oste omyelitis Mandible Diseases in [place], [place] [address] [place] [phone] Social History Tobacco Use Types Packs/Day Years [...] Pressure - - Pulse - - Temperature 37.2 ??C (99 ??F) 12/22/2018 1:15 PM CDT Respiratory Rate - - Oxygen Saturation - - Inhaled Oxygen Concentration - - Weight 77.5 kg (170 lb 13.7 oz) 12/22/2018 1:15 PM CDT Height - - Body Mass Index 25.23 12/14/2018 1:00 PM CDT documented in this encounter Progress Notes Mervin Pfeiffer M.D. - 12/22/2018 1:50 PM CDT Poala Mcmullen [phone] Reason for Consult: Right mandibular osteomyelitis treatment and [facility] ID post- hospital follow-up History of Present Illness: Ms. Mcmullen is a 53-year-old female who has had persistent right molar pain starting in May 2015. 3 teeth were removed. An textile engineer performed a root canal, but her symptoms [...] received 2 g of cefazolin anna-operatively. During te procedure, a 1-cm x 0.5-cm block of cortical bonewas sent for culture. Surgical exploration, copious irrigation, and curetting of the bone was performed along the lateral aspect of the mandible. There was soft cortical bone consistent with periostealreaction from 2 approximately 1-cm specimens. Upon [facility] ID consultation on 12/14/18, a PICC line [...] cultures. On 12/22/18, she returned to ID clinic. She noted some discomfort with her PICC line site, but she said she will talk to the PICC line nurse next week about it. She has no fevers or chills. She feels heroral pain is improving. 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 pneumoniae. Resistant to erythromycin. Susceptible to ceftriaxone, levofloxacin, penicillin, and vancomycin. o 1+ Rothia mucilaginosa. No susceptibilities obtained. Per antibiogram, 98% susceptible to ceftriaxone, 100% susceptible to meropenem, 100% susceptible to penicillin, 100% susceptible to vancomycin. o 1+ Haemophilus haemolyticus. Susceptible to ceftriaxone and TMP/SMX. - 12/14/18: Anaerobic culture of mandible tissue growing mixed monique. - 12/14/18: HIV-1/-2 Ag and Ab screen negative ANTIMICROBIALS - Ertapenem: 12/15/18-01/25/19 (anticipated) ANTIMICROBIAL ALLERGIES - None PATHOLOGY - 12/14/18: Right posterior mandibular biopsy showed lamellar bone with marrow space fibrosis. RENAL FUNCTION - 12/14/18: eGFR 83 ECG QTC - Not available within 10 years LABS - Hg 13.2 (12/14/18) - 13.1 (12/21/18) - WBC 6.7 (12/14/18) - 5.8 (12/21/18) - Plt 222 (12/14/18) - 274 (12/21/18) - ESR 4 (12/14/18) - Cr 0.80 (12/14/18) - 0.79 (12/21/18) - eGFR 83 (12/14/18) - Total bilirubin 0.3 (12/14/18) - Direct bilirubin < 0.2 (12/14/18) - ALT 39 (12/14/18) - 68 (12/21/18) - AST 39 (12/14/18) - CRP < 3.0 (12/14/18) #1 Chronic osteomyelitis of the right mandible s/p exploration and debridement on 12/14/18 Mrs. Mcmullen is a 53-year-old female who has had chronic osteomyelitis of the right mandible since May 2015. She underwent an irrigation and debridement on 12/14/18, and cultures have shown polymicrobial growth (Streptococcus mitis group, Rothia mucilaginosa, and Haemophilus haemolyticus). [facility] and advised 42 days of ertapenem (ending 01/25/19). RECOMMENDATIONS - Continue ertapenem 1 g IV q24h for a polymicrobial infection. Cultures grew Streptococcus mitis, Rothia mucilaginosa, and Haemophilus haemolyticus, all of which should have been susceptible to ertapenem. There was a plan to complete 42 days of ertapenem (stop date of 01/25/19) of outpatient treatment,per Dr. Walker. I will see her back on 01/26/19. - The patient has an appointment with [facility] on 12/27/18. It appears there was a previously scheduled [facility] AMIRA appointment on that day too, which could be canceled. - Continue routine OPAT labs, which are currently ongoing. Discussed with Dr. Nelson. Associated attestation - Alsia Nelson M.D. - 12/22/2018 9:31 PM CDT I have reviewed and agree with the documentation of Mervin Pfeiffer MD dated 12/22/18. documented in this encounter Plan of Treatment Upcoming Encounters Date Type Specialty Care Team Description 05/12/2022 Appointment Radiology Jamel Terrazas, RHONDA, C.N.P., D. N.P. [address] [place] [phone] (Wo rk) 05/12/2022 Appointment Oral and Maxillofacial Issac Woodward, Surgery Marlyn, D.D.S. [address] [place] [phone] (Wo rk) documented as of this encounter Visit Diagnoses Diagnosis Osteomyelitis Mandible documented in this encounter
--- OUTSIDE RECORDS SUMMARY | 2022-05-05 14:43 | XMS_ITS | Encounter Summary ---
:1965 Author Organization [facility] Address [address] [place] [id number] Care Team Providers Name Role Phone Unavailable Primary Care Provider Unavailable Reason for Referral Outpatient (Routine) - Closed Specialty Diagnoses / Procedures Referred By Contact Refer red To Contact Diagnoses Osteomyelitis Mandible Issac Woodward M.D., [facility] Ruma.D.S. [address] [place] [address] Referral ID Status Reason Start Date Expiration Date Visits Requ ested Visits Authorized [id number] Closed 12/27/2018 12/27/2019 1 1 Scheduling Instructions 01/26/19 [facility], 1:00ish [facility] Outpatient (Routine) - Closed Specialty Diagnoses / Procedures Referred By Contact Refer red To Contact Diagnoses Osteomyelitis Mandible Chronic Issac Woodward M.D., [facility] D.D.S. [address] [place], [place] [phone] Referral ID Status Reason Start Date Expiration Date Visits Requ ested Visits Authorized [id number] Closed 12/14/2018 12/14/2019 1 1 Scheduling Instructions 12/27/18 JONNY Woodward2, coordinate time with IfD appt Reason for Visit Outpatient (Routine) - Closed Specialty Diagnoses / Procedures Referred By Contact Refer red To Contact Diagnoses Osteomyelitis Mandible [facility] [address] [place] [phone] Referral ID Status Reason Start Date Expiration Date Visits Requ ested Visits Authorized [id number] Closed 12/14/2018 12/14/2019 1 1 Encounter Details Date Type Department Care Team Description 12/27/2018 Hospital Encounter Division of Oral and Cr[place], O steomyelitis Mandible (Primary Dx); Maxillofacial Surgery Issac Raymundo M.D., [facility] [place] [address] [facility] [address] [place] [phone] Social History Tobacco Use Types Packs/Day Years [...] Consult Notes Issac Woodward M.D., D.D.S. - 12/27/2018 11:14 AM CDT SUBJECTIVE CHIEF COMPLAINT / REASON FOR VISIT Mandibular osteomyelitis HISTORY OF PRESENT ILLNESS Mrs. Mcmullen is a very pleasant 53-year-old female known to my service for having undergone treatment of chronic left mandibular osteomyelitis. She underwent surgical exploration and debridement of the right posterior mandible on 12-14-18. She was also seen by our colleagues in Infectious Disease who c ontinue following her and managing her ongoing IV antibiotic regimen. She continues on her Dipentum with a projected stop date of 01/25/19. She reports that she is still having ongoing difficulties with pain but has not experienced any onset swelling and or drainage within her head or neck region. he otherwise cites no further head neck complaints today. REVIEW OF SYSTEMS Pertinent items are noted in HPI; all other systems were reviewed per [facility]. OBJECTIVE There were no vitals taken for this visit. PHYSICAL EXAM Physical Exam General: Alert and oriented, No acute distress. Face: No facial swelling or asymmetry. Oral: Evaluation of her surgical site reveals a small subcentimeter area of dehiscence along her prior incision line. Vicryl sutures are still intact in place. along the area of dehiscence there is healthy fibrinous bed no signs of bone exposure purulent drainage. Neck: Supple, Non-tender. No palpable cervical lymphadenopathy. ASSESSMENT / PLAN 1. Osteomyelitis Mandible 2. Osteomyelitis Mandible Chronic Mrs. Mcmullen is a very pleasant 53-year-old female seen today for routine postoperative follow-up in the setting of chronic right posterior mandibular osteomyelitis. She is now approximately 2 weeks status post surgical exploration, debridement, and procurement of tissue cultures. Based on her examination today she is healing normally with no signs of progressive underlying infection. She is scheduled to complete her IV antibiotic therapy in early January and also has follow-up with our colleagues in Infectious Disease at that time point. We discussed that we will coordinate a return visit to see me ruma lemus that time as well. Beyond that we will coordinate a future return visit roughly 3-6 months following completion of IV antibiotic therapy in order to obtain new baseline CT imaging. Multiple questions were welcomed and answered. She was discharged in stable condition. Electronically signed by: Issac Woodward M.D., D.D.S. 12/27/18 11:19 AM documented in this encounter Plan of Treatment Upcoming Encounters Date Type Specialty Care Team Description 05/12/2022 Appointment Radiology Jamel Terrazas APRN, C.N.P., D. N.P. [address] [place] [phone] (Wo yashira) 05/12/2022 Appointment Oral and Maxillofacial Issac Woodward, Surgery Marlyn, D.D.S. [address] [place] [phone] (Wo yashira) Scheduled Referrals Name Type Priority Associated Diagnoses Order S chedule Oral and Outpatient Routine Osteomyelitis Once for 1 Maxillofacial Surgery Referral Mandible Chronic Oc currences Post Op (clinic) starting 12/27/2018 unti l 12/27/2018 Oral and Outpatient Routine Osteomyelitis Expected: Maxillofacial Surgery Referral Mandible 2018 Post Op (clinic) (Approximat e), Expires: 12/27/2021 documented as of this encounter Results OMS [employer] (12/27/2018 11:21 AM CDT) Specimen (Source) Anatomical Location Collection Method / Collectio n Time Received Time / Laterality Volume Narrative This result has an attachment that is no t available. Issac Woodward M.D., D.D.S. PROCEDURE/MINOR SURGICAL ORDERABLES documented in this encounter Visit Diagnoses Diagnosis Osteomyelitis Mandible - Primary Osteomyelitis Mandible Chronic documented in this encounter
--- OUTSIDE RECORDS SUMMARY | 2022-05-05 14:43 | XMS_ITS | Encounter Summary ---
:1965 Author Organization [facility] Address [address] [place] [address] Care Team Providers Name Role Phone Unavailable Primary Care Provider Unavailable Reason for Visit Auth/Cert Specialty Diagnoses / Procedures Referred By Contact Refer red To Contact Diagnoses Osteomyelitis Mandible Chronic Procedures RI BX BN OPN SUPFCL EXPLORATION INCISION~right mandible BIOPSY MANDIBLE~cultures right mandible M27.2 (ICD-10-CM) - Osteomyelitis Mandible Chronic Referral ID Status Reason Start Date Expiration Date Visits Requ ested Visits Authorized [id number] 1 1 Encounter Details Date Type Department Care Team Description 12/14/2018 Surgery RST ROMB MAIN OR Issac Woodward S, EXPLORATION Right [address] [facility] Marlyn, D.D.S. Posterior Mandible. [place], [place] [id number] [phone] [place] [phone] Social History Tobacco Use Types Packs/Day Years [...] Sign Reading Time Taken Comments Blood Pressure 167/93 12/14/2018 9:30 AM CDT Pulse 77 12/14/2018 9:30 AM CDT Temperature 36.4 ??C (97.5 ??F) 12/14/2018 9:20 AM CDT Respiratory Rate 11 12/14/2018 9:30 AM CDT Oxygen Saturation 94% 12/14/2018 9:30 AM CDT Inhaled Oxygen Concentration - - Weight 78.4 kg (172 lb 13.5 oz) 12/14/2018 7:12 AM CDT Height 175 cm (5' 8.9) 12/14/2018 7:12 AM CDT Body Mass Index 25.36 12/14/2018 1:00 PM CDT documented in this encounter Discharge Summaries Kaila Serina Leiva P.A.-C., M.S. - 12/15/2018 1:07 PM CDT DISCHARGE SUMMARY BRIEF OVERVIEW Discharge Provider: Issac Woodward M.D. No primary care provider on file. Primary Care Provider Phone Number: None Primary Care Provider Fax Number: None Other Providers: None Admission Date: 12/14/2018 Discharge Date: 12/15/2018 PRINCIPAL DIAGNOSIS Osteomyelitis Mandible Chronic SECONDARY DIAGNOSES Principal Problem: Osteomyelitis Mandible Chronic Active Problems: Obstructive Sleep Apnea Adult Hypertension Essential Primary Osteomyelitis Mandible Alcohol Use Unspecified With Unspecified Alcohol Induced Disorder (HCC) Resolved Problems: * No resolved hospital problems. * Operative Procedures: Scheduled (Memo), Completed (Comp) or Canceled (Can) Case IDs Date Procedure Surgeon Location Status [id number] 12/14/18 EXPLORATION Right Posterior Mandible. Issac Woodward M.D., D.D.S. RST ROMB ORComp DISCHARGE DISPOSITION Home-Health Care [facility] [6] ACTIVE ISSUES REQUIRING FOLLOW UP Infectious diseases sign-off recommendations: 1. Continue ertapenem 1 g IV every 24 hr to complete 42 days of ertapenem as outpatient. Tentative stop date is January 25, 2019 2. Await culture data. Final antimicrobial plan may change after dismissal depending on cultures. 3. Would recommend follow-up in ID clinic in about 7 days. She will need weekly CBC ALT creatinine for monitoring. These lab should be sent to [phone]. ANTIBIOTIC THERAPY: To treat the infection in your right mandible you will require long-term antibiotic therapy. This will initially involve daily IV antibiotic infusions through the PICC line that was placed in your right arm. You will also require weekly lab monitoring that should be drawn on Tuesday or Tuesday of each week while on IV antibiotics. Daily antibiotic infusions have been arranged at an outpatient facility. IV ANTIBIOTIC INFUSION PLAN: MEDICATIONS: Ertapenem 1 gm IV every 24 hours STOP DATE: January 25, 2019 WEEKLY LAB MONITORING: CBC with differential, ALT, Creatinine (to be drawn every Tuesday or Tuesday of each week while on IV antibiotics). PICC LINE: Should be removed at the completion of IV antibiotics. INFUSION COMPANY AND HOME HEALTH AGENCY: [facility] Address: [place] [place] [address] Orders for Infusion Center/Home Health Care for PICC Site care and weekly lab draws: 1. Flush PICC line per agency protocol. 2. PICC site care per agency protocol. 3. Weekly lab draws on Tuesday or Tuesday each week. Fax results to Infectious Diseases Outpatient Monitoring at [phone]. 4. Weekly labs to include: CBC with differential, ALT, Creatinine. None OUTPATIENT FOLLOW UP Future Appointments Date Time Provider Department Center 12/22/2018 1:50 PM Mervin Pfeiffer M.D. [facility] R[facility] Spec 12/27/2018 11:20 AM Issac Woodward M.D., D.D.S. [facility] Spec 12/27/2018 1:30 PM [facility] HEM ONC AMIRA 01 [facility] R[facility] Spec TEST RESULTS PENDING AT DISCHARGE Pending Labs Order Current Status Actinomyces Culture In process Bacterial Culture, Aerobic + Susc In process Bacterial Culture, Anaerobic + Susc In process Fungal Culture, Routine In process Mycobacterial Culture In process Surgical Pathology, Frozen Lab In process DETAILS OF HOSPITAL STAY REASON FOR ADMISSION Osteomyelitis Mandible Chronic Osteomyelitis Mandible Chronic Osteomyelitis Mandible HOSPITAL COURSE Paola Mcmullen was routinely admitted in the morning to the service of Dr. Woodward. She was brought to the operating room where general anesthesia was provided via nasotracheal intubation where she then underwent surgical exploration, right posterior mandible. Bone biopsy and bone culture, right posterior mandible. Paola Mcmullen tolerated the procedure and anesthesia well, was extubated, and then brought to the post-anesthesia care unit in stable condition. Following adequate recovery from anesthesia, she was taken to general nursing floor in [facility] where the hospitalization continued uneventfully. She was discharged tolerating oral intake with pain well controlled on oral medication, ambulating independently, and voiding spontaneously. Paola Mcmullen is returning home and received appropriate instruction and materials for ongoingcare. CONSULTS ORDERED DURING THIS ADMISSION IP CONSULT TO INFECTIOUS DISEASES IP CONSULT TO CARE MANAGEMENT IP CONSULT TO CARE MANAGEMENT Procedures Performed: PICC line CONDITION AT DISCHARGE stable Discharge instructions were provided to the patient and caregiver(s). documented in this encounter Medications at Time of Discharge Medication Sig Dispensed Refills Start Date End Date calcium carbonate Take 500 mg of 0 (OS-THADDEUS) 1,250 mg (500 mg calcium by mouth calcium) tablet daily with breakfast. cholecalciferol (VITAMIN Take 5,000 Units by 0 02/13/2020 D3) 5,000 Unit capsule mouth daily. fish oil 500 mg capsule Take 500 mg by 0 02/13/2020 mouth daily. multivitamin capsule Take 1 capsule by 0 02/13/2020 mouth daily. ertapenem (INVanz) 100 Infuse 10 mL (1 [...] total) by mouth every 6 (six) hours. carBAMazepine (TEGretol) Take 300 mg by 2 019 02/13/2020 200 mg tablet mouth 2 (two) times a day. lisinopril Take 10 mg by mouth 2 11/20/201802/12 (PRINIVIL,ZESTRIL) 10 mg daily. tablet oxyCODONE (ROXICODONE) 5 Take 1 tablet (5 [...] documented as of this encounter Progress Notes Gina Mack R.R.T., Rafia. - 12/15/2018 8:30 AM CDT 12/15/18 0800 BPAP/CPAP Therapy BPAP/CPAP Interface Nasal Prongs BPAP/CPAP Interface Size Medium $BPAP/CPAP Yes Ventilator Parameters Ventilator Parameters (Select Groups) BPAP/CPAP Rows BPAP/CPAP Mode Auto-CPAP FiO2 (%) 21 % EPAP (Min) 9 cm H2O EPAP (Max) 20 cm H2O Humidification Heated humidifier RT will continue to assist with CPAP at night and as needed. Darnell Willams D.D.S., M.S. - 12/15/2018 7:20 AM CDT SUBJECTIVE Ms. Mcmullen is without complaints this morning. No acute events overnight. Vital signs normal, afebrile. Pain control with acetaminophen, ketorolac, oxycodone. Patient reports pain is well controlled.She is tolerating blenderized diet with 2.3L intake since surgery. Reports no nausea and no vomiting. Patient is voiding independently. Overall, Mrs. Mcmullen is progressing well from surgery. PICC line was placed yesterday. I/O last 3 completed shifts: In: 3612.2 [P.O.:2360] Out: 2310 [Urine:2300; Blood:10] OBJECTIVE VITAL SIGNS Temperature: [36.4 ??C-37.3 ??C] 36.6 ??C Heart Rate: [63-85] 71 Resp Rate: [9-25] 18 Blood Pressure: (116-178)/(61-122) 132/79 FiO2 (%): [21 %] 21 % SpO2: [89 %-100 %] 95 % Pulse Rate: [63-86] 64 Recent Labs 12/14/18 1325 HGB 13.2 WBC 6.7 NA 142 K 4.2 CREATININE 0.80 CALCIUM 9.3 Micro Results Last 72 Hours Gram Stain Result Value Gram Stain No organisms seen. Acid Fast Smear For Mycobacterium Result Value Acid Fast Smear For Mycobacterium Negative. Fungal Smear Result Value Fungal Smear Negative. HIV-1/-2 Ag and Ab Screen, Plasma - RST/AZ Result Value HIV-1/-2 Ag and Ab Screen, P Negative PHYSICAL EXAM General: AAOx3. NAD. Resting in bed comfortably. Head and neck: Normocephalic. Right facial swelling appreciated consistent with surgical procedure. Intraoral: Right posterior mandibular incision is closed, hemostatic with sutures intact. ASSESSMENT / PLAN #1 Osteomyelitis Mandible Chronic #2 Obstructive Sleep Apnea Adult #3 Hypertension Essential Primary #4 Osteomyelitis Mandible #5 Alcohol Use Unspecified With Unspecified Alcohol Induced Disorder (HCC) Hospital Day: 2 Ms. Mcmullen is 1 Day Post-Op Procedure(s): EXPLORATION Right Posterior Mandible. Biopsy and Bone Culture Right Mandible. She is doing well post-operatively. Surgical sites remain closed and hemostatic with sutures in place. We would like our colleagues in the IFD service for their recommendations. PICC line was placed. Patient will be discharged with Ertapenem PLAN: Consults: Infectious disease Diet: Adult Diet Mechanical Soft Activity: As tolerated VTE Prophylaxis: Lovenox 40 mg daily Bowel Regimen: Senokot-S Pain: acetaminophen, ketorolac, oxycodone Antibiotics: per ID recommendations Disposition: Home later today Please contact [facility] at [phone] with questions or concerns. Associated attestation - Issac Woodward M.D., D.D.S. - 12/18/2018 7:06 AM CDT I saw and evaluated the patient, participating in the franco portions of the service. I reviewed the resident/fellow???s note. I agree with the resident/fellow???s findings and plan. Electronically signed by: Issac Woodward M.D., D.D.S. 12/18/18 7:06 AM [facility] - 12/15/2018 6:15 AM CDT INFECTIOUS DISEASE RESIDENT PROGRESS NOTE SUBJECTIVE No acute events for night. The patient's pain was well controlled. She denies any shortness of breath, urinary frequency, dysuria fever chills last night. OBJECTIVE VITAL SIGNS Temperature: [36.4 ??C-37.3 ??C] 36.7 ??C Heart Rate: [63-85] 71 Resp Rate: [9-25] 18 Blood Pressure: (116-178)/(61-122) 118/61 FiO2 (%): [21 %] 21 % SpO2: [89 %-100 %] 97 % Pulse Rate: [63-86] 64 Admission Weight: 78.4 kg Current Weight: 77.9 kg PHYSICAL EXAM Gen: Non-toxic appearing. HEENT: Head atraumatic, swelling of right mandible, EOM intact. Moist mucous membranes without purulent drainage Lungs: Normal work of breathing. Heart: No swelling of bilateral LEs Abdomen: non-distended Neuro: Alert and oriented. Skin: Warm, dry, no rashes. Psych: Appropriate affect, recall intact. DIAGNOSTICS I have reviewed diagnostics. Studies of note include: Results from last 7 days Lab Units 12/14/18 1325 WBC x10(9)/L 6.7 HEMOGLOBIN g/dL 13.2 MCV fL 94.3 PLATELETS AUTO x10(9)/L 222 SODIUM mmol/L 142 POTASSIUM mmol/L 4.2 CHLORIDE mmol/L 105 BUN mg/dL 12 CREATININE mg/dL 0.80 Estimated Creatinine Clearance: 97.7 mL/min (by C-G formula based on SCr of 0.8 mg/dL). ANTIMICROBIAL MEDICATIONS Current: cefTRIAXone 2 g Q24H metroNIDAZOLE 500 mg TID Recent: MICROBIOLOGY Results for orders placed or performed during the hospital encounter of 12/14/18 (from the past 336 hour(s)) Gram Stain Result Value Gram Stain No organisms seen. Acid Fast Smear For Mycobacterium Result Value Acid Fast Smear For Mycobacterium Negative. Fungal Smear Result Value Fungal Smear Negative. HIV-1/-2 Ag and Ab Screen, Plasma - RST/AZ Result Value HIV-1/-2 Ag and Ab Screen, P Negative IMAGING Ct Maxillofacial With Iv Contrast Result Date: 12/13/2018 Impression: IMPRESSION: 1. Imaging findings most consistent with chronic osteomyelitis of the right mandible. Differential would include osteoradionecrosis (if there is a history of prior radiation therapy) and bisphosphonate induced osteonecrosis (if there is appropriate clinical history). The changes are similar or progressed minimally since 08/11/2018. 2. Enlargement of the mandibular canal on theright is of uncertain etiology or significance. 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 Ms. 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 ?? The patient was referred by a neurologist for MRI findings consistent with osteomyelitis of the right mandible. The patient has been struggling with pain in the right mandible thought to be secondary to a right molar dental caries from the last [address] was obtained on 12/13/2018 which revealed imaging findings consistent with chronic osteomyelitis of the right mandible. The changes are similar vs progressed slightly since 08/11/2018. The patient was seen in the outpatient settingon 12/13 and based on imaging findings and clinical exam it was thought that the patient should be brought for exploration, biopsy and bone culture of her right mandible today. The procedure went well on 12/14/2018 and per discussion with OMFS, no abscess or purulence was noted. Source control was established. Cultures and biopsy were obtained and are currently pending. HIV test was negative. ?? We would recommend PICC line placement for outpatient IV antibiotics. We would recommend initiating the patient on IV Ertapenem 1 g daily for a planned 6 weeks. She will continue these medications on discharge and follow-up with Infectious Disease outpatient in 1 week to determine the length of antibiotic treatment. ?? RECOMMENDATIONS 1. Stop IV ceftriaxone 2 g Q 24 hr and PO metronidazole 500 mg t.i.d. We will avoid metronidazole due to the patient's alcohol use. 2. Start ertapenem 1 g IV daily for plan of 6 weeks of therapy as an outpatient. Tentative Stop date01/25/2019 3. A PICC line can be inserted prior to discharge from hospital. 4. We will follow up with the patient in ID clinic in 7 days. ?? This patient was seen with and staffed by Dr. Walker, who is in agreement with the plan. Please see her note for more details. ?? Thank you for involving us in the care of this patient. Please contact the Infectious Disease team ([phone]) with any questions or concerns. INFECTIOUS DISEASES SIGN OFF RECOMMENDATIONS Primary Team 1. Sign off antibiotics: -Ertapenem 1 g IV daily for plan of 6 weeks of therapy as an outpatient. Tentative Stop date 01/25/2019 2. Please arrange PICC catheter prior to discharge. 3. Monitoring lab recommendations: Yes, weekly on antibiotics. Complete blood count with differential and Creatinine Please fax to division of Infectious Diseases OPAT monitoring program at [phone] after dismissal. Primary service to follow labs while patient is hospitalized. Infectious Diseases 1. PICC/Therapy: Maintain PICC until follow up. 2. Follow up indicated: Follow up with infectious diseases in 1 week (12/22/18). Asher Garcia M.D. 12/15/18 Regina Jeong R.R.T., L.R.T. - 12/15/2018 6:03 AM CDT 12/14/18 2310 BPAP/CPAP Therapy BPAP/CPAP Interface Nasal Prongs BPAP/CPAP Interface Size Medium $BPAP/CPAP Yes Ventilator Parameters Ventilator Parameters (Select Groups) BPAP/CPAP Rows FiO2 (%) 21 % EPAP (Min) 9 cm H2O EPAP (Max) 20 cm H2O Humidification Heated humidifier Plan of Care: Patient is ordered for CPAP therapy. Hospital equipment inspected, settings verified (Autoset 9-20 cmH2O), no supplemental oxygen in line. Patient was placed onto CPAP for sleeping. Equipment will be inspected each shift. Electronically signed by: Regina Jeong R.R.T., L.R.T. 12/15/18 6:04 AM documented in this encounter H&P Notes Darnell Willams D.D.S., M.S. - 12/14/2018 7:45 AM CDT INTERVAL HISTORY AND PHYSICAL PRE-PROCEDURE UPDATE H&P reviewed. The patient was examined and there are no significant changes to the H&P. Darnell Willams D.D.S., M.S. Source Note - Issac Woodward M.D., SusyS. - 12/13/2018 4:10 PM CDT Maxillofacial Surgery Supervisory Note: Mrs. Mcmullen is a very pleasant 53-year-old female seen today for an evaluation regarding right posterior mandibular osteomyelitis in the setting of multiple prior to onto neck infections involving the right posterior mandible. She is seen today in conjunction with Dr. Luque, please see his notes fordetails of HPI and physical exam. In brief, Mrs. Mcmullen has a clinical history as well as radiographic imaging that is compatible with a diagnosis of underlying mandibular osteomyelitis. Based on herCT review she has evidence of sclerosis and mandibular periosteal reaction that involves her right posterior mandibular body and ascending ramus. She has never formally undergone prior surgical debridement or procurement of bone cultures. She has never been formally evaluated by Infectious Disease. Myrecommendations were to proceed with operative exploration of the area for washout debridement of the involved bone, procurement of bone cultures, and postoperative admission for coordination of IV antibiotics and Infectious Disease consultation. We will plan to have the above- mentioned procedure completed tomorrow [facility] under general anesthesia. Will plan to hold antibiotics until after specimens for tissue culture obtained. The chronic nature of the disease process as well as the co mbined surgical and medical nature of the treatment were discussed in detail. Mrs. Mcmullen or was understanding of this and wishes to proceed in the above- mentioned direction. Her questions were welcomed and answered. Electronically signed by: Issac Woodward M.D., SusyS. 12/13/18 4:14 PM documented in this encounter Procedure Notes Brad Amin R.N. - 12/14/2018 3:55 PM CDTAssociated Order(s): PLACE PERIPHERALLY INSERTED CENTRAL CATHETER (PICC) Post-Procedure Diagnose(s): Osteomyelitis Mandible Non-IR PICC Line Placement Date/Time: 12/14/2018 3:55 PM Performed by: ELIAS WERNER Authorized by: SERINA DOLL Consent: Consent obtained: Written The benefits, risks and alternatives to the procedure and the potential need for sedation or anesthesia as well as the names, roles, and responsibilities of healthcare team members performing significant interventional tasks were discussed with the patient and/or decision maker.: yes The benefits, risks and alternatives to the possible need for blood products were discussed with the patient and/or decision maker.: Not addressed [place] protocol: All relevant documentation and testing were reviewed and available. All required blood products, implants, devices and/or special equipment were made available as applicable. The pre-procedure verification was conducted, the correct site was marked if required, and the procedural time out was conducted prior to performing the procedure and confirmed in a procedural pause.: yes Pre-procedure details: Indications: Needed after discharge for ongoing care Appropriate hand hygiene, gown, cap, mask, protective eyewear, sterile gloves, skin preparation, sterile drape, and strict aseptic technique were utilized as applicable for the procedure.: yes Site preparation: Chlorhexidine Sedation/Anesthesia (see MAR for exact dosages): Anesthesia method: Local infiltration Local infiltrate type: Lidocaine Procedure details: Select Line: PICC Line Size: 4.0 FR Adult or Fernando/Peds: Adult # of Lumens: Single lumen Type of Catheter: Power injectable and valved Line Type: temporary central line Laterality: Right IV Location: Basilic Optimal site selected: Yes Blood Return: Yes Placement Assistance: ECG guidance Tip Verification: ECG Catheter Length (cm): 41 Initial Exposed Catheter (cm): 0 Mid Upper Arm Circumference (cm): 27 All lumens flushed (Document volume in I/O): yes Post-procedure details: Procedure completed successfully: yes Complications: no apparent complications documented in this encounter Consult Notes Amy Cheatham L.I.C.S.W., M.S.W. - 12/15/2018 12:19 PM CDTAssociated Order(s): IP CONSULT TO CARE MANAGEMENT; IP CONSULT TO CARE MANAGEMENT Psychosocial Assessment SUBJECTIVE DEMOGRAPHIC INFORMATION Referral Source: [employer] Referral Reason: Discharge Planning Discharge Planning: IV antibiotics Person(s) present during interview: Patient, Spouse Primary care clinic and provider: [facility] / Dr. Mariam Rust Primary Language: Tongan Tuckpointer Services Used: No Legal Information: Legal Decision Maker: Self Citizenship: Citizenship: [place] Citizen REASON FOR CONSULT Discharge Planning Disclaimer: The patient and family was advised regarding the various topics to be interviewed duringthis evaluation. Patient consented to proceed. The information provided in the assessment is based on review of the medical record as well as the face to face interview with the patient and family. Thepatient and family was advised that the content of this interview will be shared with the health care team. It was discussed with the patient that staff are mandated reporters and they reported understanding. SOCIAL HISTORY Early growth and development: The patient met social and developmental milestones as expected. Family of Origin: The patient grew up with 1 brother and 2 sisters in [place]. Marital Status / Family / Household Status: She is with 3 kids and 10 grandchildren. She doesn't have a relationship with her oldest son's family. However her daughter Davi and Myesha they have a good relationship with. Davi resides [facility] and Myesha lives in [place]. Support Systems: Spouse, Family members, Children. We have received permission to contact them. Primary caregiver: Self Spirituality / Congregational / Culture: The patient is not spiritual or methodist. History: None. 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 Psychosocial Risk Factors impacting the patient: Chemical Dependency Abuse, Neglect, Maltreatment, Trauma: Current: None reported. Past: None reported. ENVIRONMENTAL SUPPORTS Current Living Situation: Private residence Patient's Home Environment: House The patient resides in a 2 story home with her . There are 8 steps that lead into the home. She denied having any concerns with getting around her home. Anticipated modifications to the patient's home environment: None FUNCTIONAL STATUS (ADL's and IADL's) Functional Status: Independent Assistive Devices: CPAP Type of Residence: Private residence Level of Assistance: Independent Dressing: Independent Feeding: Independent Bathing: Independent Grooming: Independent Toileting: Independent Behavior: Oriented Communication: Can write, Talks, Understands speaking, Understands Tongan It is anticipated that the patient will need assistance with None. ASSISTIVE DEVICES Patient has the following equipment: CPAP Patient anticipates potentially needing the following additional equipment: None INSTRUCTOR LOOPING Formal and Informal Resources: The patient denied having any formal services. Her informal support is through her , children, and grandchildren. Caregiver Name: None FINANCES/INSURANCE Primary insurance: whodoyou ACCESS Secondary insurance: N/A Income Information Does the Patient have any Financial Concerns?: No Income Source: Employed Income/Expense Information: Income meets expenses ADVANCE DIRECTIVES Advance Directives: Patient would like information OBJECTIVE MENTAL HEALTH Mental Health History: The patient reports several years ago she was on medication that helped her to quit smoking. Unfortunately she experienced the side effect of depression and suicidal ideation when she was on that medication. When she stopped taking the medication her depression and suicidal ideation immediately stopped. She denied having any other mental health history or current concerns. Current Psychological Symptoms: Patient Appearance: Healthy, Well-groomed, Relaxed Behaviors Observed: Calm, Pleasant, Interactive Patient Level of Consciousness: Alert and oriented Status of Patient's Memory: Intact Patient Cooperation: Cooperative, Forthcoming, Reliable Patient Mood: Euthymic Patient Affect: Mood-congruent, Stable Quality of Patient's Speech: Within normal limits for volume, rate and tone Descriptor of Thought Content: No abnormality Thought Process Descriptor: Intact, Logical and goal-directed Concentration: Stable, Patient's mental status was not formally tested Anxiety Symptoms: No symptoms of panic, No obsessions or compulsions, No ruminative worry Depressive Symptoms: No symptoms of depressions Level of Judgement: Intact Suicide Risk and Safety Risk Assessment: Attempted suicide within last 30 days?: No Substance abuse history or abuse within last 30 days?: Yes Attempting or threatening suicide?: No Attempting or threatening self-harm?: No Expressing suicidal thoughts without intent?: No Expressing self-harm thoughts without intent?: No Recent evidence of psychiatric disorder?: No Response to question indicating hopelessness?: No Isolated from others?: No Mood inconsistent with state of illness?: No Fear of assisted/extended hospitalization?: No Coping with recent loss/disruption in support system?: No Homicidal: Homicidal Risk Current Homicidal Ideation: No SUBSTANCE USE Substance Use Extended History Alcohol: Alcohol Current or past use: Yes Pattern of use: The patient drinks 1-2 shots of Bacardi a day. She utilizes the alcohol to help withpain. She reports having issues with pain for 4 years. Nicotine: She has a history of smoking cigarettes. The patient denied having any history of abusing illicit substances. Current Stressors The patient is worried the home infusions may be very complicated to do. Coping Skills/Strengths Family support, Insightfulness and Motivation Premorbid level of function, Support of immediate family, Attitude of family, Attitude of self, Homedesign, Ability to acquire knowledge ASSESSMENT / PLAN IMPRESSION The patient is a pleasant woman that is alert & oriented x3. She talked about her medical history that lead to her going to multiple different providers trying to find out what caused her pain in her mouth. Because of the pain she drinks 1-2 shots of Bacardi each night because she was afraid to overuse Tylenol. She acknowledged alcohol was not a healthy substitute for her pain but she described feeling desperate for relief. She expressed appreciation the timeliness of Zoe's responding to getting her into a doctor and getting surgery scheduled very quickly. She became emotional when she talked about the relief she felt about getting a diagnosis that had been causing her problems. She understands she will have some swelling from the surgery but she is hopeful eventually she will no longer havepain relief. Social work expressed concern about the patient's alcohol use. She was offered chemicaldependency resources but she declined. She felt she would be able to quit using alcohol because she w on't need it for pain anymore. She expressed a strong motivation to quit alcohol use. INTERVENTIONS -Supportive counseling: Reflective and active listening, motivational interviewing, and rapport building. -Set expectations related to: Role of behavioral health worker PLAN Patient will discharge home with home infusions. Individuals have been identified who are willing and able to learn the infusion technique. Dialysis/Infusion - Selection Complete Service Request Status Selected Specialties Address Phone Number Fax Number [facility] [address], [place] [address] Contact: Intake NURSING: - Adjust the dosing schedule to accommodate home infusion. - Fax any prescriptions 24 hours prior to discharge. - Complete documentation in the Discharge Navigator including Nursing Report Info and Facility/NextLevel of Care Info - Call report and arrange for patient???s first visit. - Be sure the patient receives a dose prior to dismissal on the day of discharge. - Send After Visit Summary, include IV access information and current labs and required packet of dismissal information with patient, including advance directive. PRIMARY SERVICE: - Prescription needs to be completed and faxed to the infusion provider at least 24 hours prior to dismissal. - Prescription needs to include: - Orders for IV meds with a stop date - Normal Saline/Heparin flushes and site care for IV access The following information will need to be included in the After Visit Summary: - Orders for IV meds with a stop date - Normal Saline/Heparin flushes and site care for IV access - Recommendations for any lab work while on IV therapy - Discontinue IV access at completion of therapy - Contact patient's primary care provider for writing IV orders, monitoring of labs/levels and any other continuing care needs. A copy of the After Visit Summary needs to be sent there as well. Site care and blood draws will be managed by Home Care: Home Medical Care Service Request Status Selected Specialties Address Phone Number Fax Number [facility] [address], [place] [address] (don't need a report from nursing) [phone] Contact: Intake (don't need report from nursing they will arrange the first visit with the patient) They will provide the nursing, patient family teaching, and IV access care for this patient. NURSING: - Complete documentation in the Discharge Navigator including Nursing Report Info and Facility/NextLevel of Care Info - Send After Visit Summary and required packet of dismissal information with patient, including advance directive. PRIMARY SERVICE: - Please provide an order for: fci care, PICC site care and lab draws in the After Visit Summary. - Communicate with the patient's local primary care provider by telephone for writing of home care orders. This needs to be done to help prevent discharge delays. A copy of the After Visit Summary needs to be sent there as well. SOCIAL WORK: -Will continue to follow for ongoing discharge planning needs. Anticipated barriers to the transition of care/plan: None identified. Patel Benavides, M.S.W. 12/15/2018 Jem Walker M.D. - 12/14/2018 4:08 PM CDT DEMOGRAPHIC INFORMATION [facility] Number:[id number] Patient Name: Paola Mcmullen Age: 53 y.o. Birthdate: 1965 Sex: female Service: [place] Infectious Disease Consultation Service Note Type: Supervisory Consult REFERRING PROVIDER Issac Woodward M.D., * REASON FOR CONSULT Supervisory note. We are asked to see the patient to give further recommendations for evaluation andmanagement of IV abx recommendations for tx of right mandibular osteomyelitis. Patient seen and examined. Agree with history, clinical findings and assessment and recommendations as outlined by Asher Garcia M.D. and Marcy Up M.D. dated 12/14/18 ALLERGIES No Known Allergies VITAL SIGNS Temperature: [36.4 ??C-37.3 ??C] 36.9 ??C Heart Rate: [63-85] 71 Resp Rate: [9-25] 14 Blood Pressure: (137-178)/(81-122) 143/86 SpO2: [92 %-100 %] 94 % Pulse Rate: [63-85] 66 Admission Weight: 78.4 kg Current Weight: 77.9 kg PHYSICAL EXAMINATION I agree with the physical examination of Asher Garcia M.D. and Marcy Up M.D. dated 12/14/18 General: Alert, oriented X3. Patient is comfortable. No acute distress. Lungs: Clear Heart: S1 & S2 are within normal limits. No murmurs. Abdomen: soft, non-tender, no masses or hepatosplenomegaly. Skin: no rash HEENT: Left buccal mucosa has an incision. Lines, Drains, and Airways Line PICC Single Lumen 12/14/18 Temporary (non-tunneled, non-implanted) Power injectable;Valved Right Basilic 0h days DIAGNOSTICS I have reviewed diagnostics. Studies of note include: Results from last 7 days Lab Units 12/14/18 1325 WBC x10(9)/L 6.7 HEMOGLOBIN g/dL 13.2 PLATELETS AUTO x10(9)/L 222 LYMPHS ABSOLUTE x10(9)/L 0.63* EOS ABS AUTO x10(9)/L <0.03 MONOS ABS AUTO x10(9)/L 0.13* BASOS ABS AUTO x10(9)/L <0.03 SED RATE mm/1 h 4 CRP mg/L <3.0 Results from last 7 days Lab Units 12/14/18 1325 12/14/18 1322 12/13/18 1057 SODIUM mmol/L 142 -- 142 POTASSIUM mmol/L 4.2 -- 5.5* CREATININE mg/dL 0.80 -- 0.81 CRTS1 EGFR NON BLACK mL/min/BSA 83 -- 82 ALT U/L -- 39 -- BILIRUBIN TOTAL mg/dL -- 0.3 -- Estimated Creatinine Clearance: 97.7 mL/min (by C-G formula based on SCr of 0.8 mg/dL). No results found for: QTCINT, CODEDDIAG MICROBIOLOGY Microbiology as outlined in the assocaited note. RADIOLOGY Ct Maxillofacial With Iv Contrast Result Date: 12/13/2018 Impression: IMPRESSION: 1. Imaging findings most consistent with chronic osteomyelitis of the right mandible. Differential would include osteoradionecrosis (if there is a history of prior radiation therapy) and bisphosphonate induced osteonecrosis (if there is appropriate clinical history). The changes are similar or progressed minimally since 08/11/2018. 2. Enlargement of the mandibular canal on theright is of uncertain etiology or significance. ASSESSMENT / PLAN IMPRESSION/REPORT/PLAN 1. Chronic right mandibular osteomyelitis status post irrigation debridement, 12/14/2018 2. History of endometrial cancer status post resection 3. History of depression 4. Remote history of left eye toxoplasmosis chorioretinitis 5. History of alcohol use disorder 6. Nicotine dependence DISCUSSION Patient has had a longstanding history of right mandibular pain after root canal approximately 4 years ago. Imaging studies are consistent with chronic osteomyelitis of the right mandible. She is status post debridement. Intraoperative findings are currently pending. Cultures are also pending. Patientwill need prolonged antibiotic therapy with. This is most likely a polymicrobial infection. Final antimicrobial plan will be dependent on the final culture data however she can be dismissed pending those cultures. RECOMMENDATIONS: Agree with recommendations as outlined in the assocaited note dated 12/14/18 1. Continue ceftriaxone 2 g IV Q 24 hr and oral metronidazole 500 mg Q 8 hr until tomorrow. morning.Will avoid metronidazole based combination as outpatient given her alcohol history. 2. Would recommend giving her a dose of ertapenem 1 g IV tomorrow morning with a plan to complete 42days of ertapenem as outpatient. Final antimicrobial plan may change after dismissal depending on cultures. 3. Await culture data 4. Would recommend follow-up in ID clinic in about 7 days. 5. She will need weekly CBC ALT creatinine for monitoring. Treatment plan reviewed with Ms. Mcmullen, who expressed understanding. All questions answered to patient's satisfaction. Discussed adverse effects of the antibiotics with the patient. Advised yogurt or Kefir and MVI while on antibiotics. Thank you for the consultation. Infectious diseases will sign off at this time. Please do not hesitate to reconsult infectious diseases should further questions or concerns arise. Please page [phone] for questions. DIAGNOSES #1 Osteomyelitis Mandible Chronic #2 Obstructive Sleep Apnea Adult #3 Hypertension Essential Primary #4 Osteomyelitis Mandible #5 Alcohol Use Unspecified With Unspecified Alcohol Induced Disorder (HCC) Jem Walker M.D. Marcy Up M.D. - 12/14/2018 2:05 PM CDT Infectious Disease Consultation Service-Consult Note SUBJECTIVE DEMOGRAPHIC INFORMATION Patient Name: Paola Mcmullen Clinic Number:[id number] Age: 53 y.o. Birthdate: 1965 Sex: female Service Date/Time: 12/14/18 2:08 PM Referring Provider: Issac Woodward M.D., * REASON FOR CONSULT We are asked to see Ms. Mcmullen to give further recommendations for evaluation and management of IVabx recommendations for tx of right mandibular osteomyelitis. HISTORY OF PRESENT ILLNESS This is a supervisory note for Dr. Garcia. Please refer to his excellent documentation note for further details on clinical presentation, work up and plan. Ms. Paola Mcmullen is a 53 y.o. year old from [facility] [id number] [address] 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 To recapitulate, she reports being treated for right root canal/possible periodontitis for the last 4 years. She presented with progressive right mandible tenderness. A CT scan of the area was pursued which revealed possible chronic osteomyelitis of the right mandible. The patient reports that over the weekend she experienced along with symptoms aforementioned, fatigue and subjective fevers. She denies being systematically ill prior to this. The symptoms resolved completely by Tuesday. She was taken to the OR for exploration of the area, biopsy and bone cultures. Per discussion with Dr. Woodward, the area was washout, no purulence/abscess was encountered. Webbing Supervisor of the procedure is pending. Currently she is hemodynamically stable. Non-toxic appearing. Physical exam is reassuring. Reports some fatigue and subjective fevers on Tuesday, however completely resolved. No sick contacts. REVIEW OF SYSTEMS See Dr. Garcia's note. The patient has no other localizing symptoms. No fever, chills or night sweatsat this time. REVIEW OF HISTORY The following portions of the patient's history were reviewed and updated as appropriate: allergies,current medications, family history, medical history, social history, surgical history and problem list OBJECTIVE Vitals: 12/14/18 1255 12/14/18 1300 12/14/18 1330 12/14/18 1400 BP: (!) 142/95 (!) 140/109 141/86 Pulse: 76 72 75 72 Heart Rate: Temp: 36.6 ??C Resp: 14 Height: 175.3 cm Weight: 77.9 kg SpO2: 96% 95% 95% 97% TempSrc: Oral Pain Score: Pain Location: PHYSICAL EXAMINATION Physical Exam DIAGNOSTICS Results from last 7 days Lab Units 12/14/18 1325 HEMOGLOBIN g/dL 13.2 HEMATOCRIT % 39.8 RBC AUTO x10(12)/L 4.22 MCV fL 94.3 RBC DISTRIBUTION WIDTH AUTO % 12.8 WBC x10(9)/L 6.7 NEUTROPHILS AUTO x10(9)/L 5.91 LYMPHS ABSOLUTE x10(9)/L 0.63* MONOS ABS AUTO x10(9)/L 0.13* EOS ABS AUTO x10(9)/L <0.03 BASOS ABS AUTO x10(9)/L <0.03 PLATELETS AUTO x10(9)/L 222 Results from last 7 days Lab Units 12/13/18 1057 SODIUM mmol/L 142 POTASSIUM mmol/L 5.5* CHLORIDE mmol/L 102 BICARBONATE S mmol/L 29 CREATININE mg/dL 0.81 CRTS1 EGFR NON BLACK mL/min/BSA 82 BUN mg/dL 15 Temp (24hrs), Av.9 ??C, Min:36.4 ??C, Max:37.3 ??C Estimated Creatinine Clearance: 96.5 mL/min (by C-G formula based on SCr of 0.81 mg/dL). Lines, Drains, and Airways No matching active lines, drains, or airways ASSESSMENT / PLAN # Chronic osteomyelitis of the right mandible # Depression # History of endometrial cancer s/p resection # EtOh use # Hypothyroidism DISCUSSION ID syndrome: chronic osteomyelitis, pending pathology to w. The patient underwent bone biopsy/culture and irrigation+debridement. Management: we recommend continuing with parenteral therap to cover for oral commensals. Polymicrobial irish expected. RECOMMENDATIONS 1. See Dr. Garcia's note for details. We are recommending to start patient on Ceftriaxone and metronidazole at doses outlined in Dr. Garcia's note. Please obtain baseline blood work including cbc, Cr, liver panel, ESR and CRP. This will be the dismissal program if patient is able to tolerate. Alternatively, we can use Ertapenem for ease of dose and administration and to avoid side effects/toxicity. Please proceed with PICC line placement. We would like to see the patient in a week time to review pathology and culture data and adjust treatment accordingly. We will continue to follow along. Case discussed with , we will formally staff tomorrow am. Please call service pager with questions or concerns Asher Garcia M.D. - 12/14/2018 10:59 AM CDTAssociated Order(s): IP CONSULT TO INFECTIOUS DISEASES SUBJECTIVE Infectious Diseases consult (hospital) Referring Provider: SERINA DOLL Reason for Consult: Patient is a 53 y.o. female admitted 12/14/2018 being requested to be evaluated by infectious diseases for IV abx recommendations for tx of right mandibular osteomyelitis. History of Present Illness Ms. 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 Per the outpatient OMFS consult, the patient was referred by a neurologist for MRI findings consistent with osteomyelitis of the right mandible. The patient been struggling with pain in the right mandible thought to be secondary to a right molar dental jacques. The patient has had multiple evaluations over the last 4 years with persistent daily pain of the right mandible. A maxillofacial CT was obtained on 12/13/2018 which revealed imaging findings consistent with chronic osteomyelitis of the right mandible. The changes are similar vs progressed slightly since 08/11/2018. The patient was seen in the outpatient setting yesterday and based on imaging findings and clinical exam it was thought that the patient should be admitted for exploration, biopsy and bone culture of her right mandible today. The patient has been afebrile and vitally stable since hospitalization. She was given 2 g of cefazolin before the procedure. Gram stain, acid-fast smear, fungal smear and cultures are currently pending. The patient had a BMP drawn prior to surgery that revealed a creatinine of 0.81 and hyperkalemia to5.5. It was otherwise unremarkable. Upon interview of the patient, she reports that she first experienced right jaw pain about 4 years ago in May 2015. At that time her jaw pain was thought to be secondary to her dentition so 3 teethwere removed. She was then referred to an facility maintenance mechanic who performed a root canal without improvement in her symptoms. She reports that she dealt with the 9/10 constant right jaw pain for the next 3.5 years. She reports taking up to 12 200 mg ibuprofen daily and drinking alcohol at night to sleep. Shewas drinking 2-4 drinks nightly. She denies any history of withdrawal. The patient was started on carbamazepine for presumed trigeminal neuralgia by her PCP. She recently saw ENT and Neurology in the last few months. An MRI was obtained 2 weeks ago by her neurologist which revealed possible osteomyelitis of the right mandible. The patient was then referred to our [facility] colleagues. The patient denies any previous radiation or surgery to her neck or jaw. She does report being diagnosed with osteopenia about 10-15 years ago at [facility]. I was able to obtain records from her PCP and it appears that she was not treated with a bisphosphonate. The patient denies any current fever, chills, cough, shortness of breath, chest pain, frequency, dysuria, diarrhea, constipation, or abdominal pain. I have reviewed and updated the following: allergies, current medications, medical history and surgical history. ID Exposure history: Infectious disease exposure history is as follows: -the patient lives in a house with her and does not have exposure to animals. -she denies ingesting any uncooked meat or fish -she has not had any sick contacts recently -she has not traveled recently and never outside of the country REVIEW OF SYSTEMS Pertinent items are noted in HPI; all other review of systems was negative. OBJECTIVE Admission Weight: 78.4 kg Current Weight: 78.4 kg VITAL SIGNS Temperature: [36.4 ??C-37.2 ??C] 36.4 ??C Heart Rate: [64-85] 71 Resp Rate: [9-21] 11 Blood Pressure: (140-178)/(89-111) 159/103 SpO2: [92 %-99 %] 92 % Pulse Rate: [64-85] 71 PHYSICAL EXAM Gen: Non-toxic appearing. HEENT: Head atraumatic. PERRL, EOM intact. Moist mucous membranes without purulent drainage Lungs: CTAB, normal work of breathing. Heart: RRR, no murmurs or gallops Abdomen: Soft, non-tender, non-distended, no rebound or guarding. Extremities: Warm and well-perfused, no edema of bilateral LEs Neuro: Alert and oriented. CN 2-12 grossly intact. Skin: Warm, dry, no rashes. Psych: Appropriate affect, recall intact. DIAGNOSTICS Microbiology Results (last 72 hours) Procedure Component Value - Date/Time Bacterial Culture, Anaerobic + Susc [[id number]] Collected: 04/25/19 0809 Lab Status: In process Specimen: Tissue from Mandible Updated: 12/14/18917 Fungal Culture, Routine [[id number]] Collected: 12/14/18808 Lab Status: In process Specimen: Tissue from Mandible Updated: 12/14/18917 Gram Stain [[id number]] Collected: 12/14/18808 Lab Status: Final result Specimen: Tissue from Mandible Updated: 12/14/18946 Gram Stain No organisms seen. Acid Fast Smear For Mycobacterium [[id number]] Collected: 12/14/18808 Lab Status: In process Specimen: Tissue from Mandible Updated: 12/14/18917 Fungal Smear [[id number]] Collected: 12/14/18808 Lab Status: In process Specimen: Tissue from Mandible Updated: 12/14/18917 Mycobacterial Culture [[id number]] Collected: 12/14/18808 Lab Status: In process Specimen: Tissue from Mandible Updated: 12/14/18917 Actinomyces Culture [[id number]] Collected: 12/14/18808 Lab Status: In process Specimen: Tissue from Mandible Updated: 12/14/18917 Bacterial Culture, Aerobic + Susc [[id number]] Collected: 12/14/18808 Lab Status: In process Specimen: Tissue from Mandible Updated: 12/14/18917 ASSESSMENT / PLAN #1 Chronic Osteomyelitis of right mandible s/p exploration and debridement on 12/14/18 #2 Alcohol use disorder #3 Hypothyroidism #4 Stage 1A, grade 1 adenocarcinoma of the endometrium s/p DEANA/BSO #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 The patient was referred by a neurologist for MRI findings consistent with osteomyelitis of the right mandible. The patient has been struggling with pain in the right mandible thought to be secondary to a right molar dental caries from the last [address] was obtained on 12/13/2018 which revealed imaging findings consistent with chronic osteomyelitis of the right mandible. The changes are similar vs progressed slightly since 08/11/2018. The patient was seen in the outpatient settingon 12/13 and based on imaging findings and clinical exam it was thought that the patient should be brought for exploration, biopsy and bone culture of her right mandible today. The procedure went well on 12/14/2018 and per discussion with OMFS, no abscess or purulence was noted. Source control was established. Cultures and biopsy were obtained and are currently pending. We would recommend PICC line placement for outpatient IV antibiotics. We would recommend initiating the patient on IV ceftriaxone 2 g Q 24 hr and p.o. metronidazole 500 mg t.i.d.. She will continue these medications on discharge and follow-up with Infectious Disease outpatient in 2 weeks to determine the length of antibiotic treatment. RECOMMENDATIONS 1. Please initiate IV ceftriaxone 2 g Q 24 hr and PO metronidazole 500 mg t.i.d. 2. A PICC line can be inserted prior to discharge from hospital. 3. Please add LFTs due to the patient's alcohol use and initiation of Ceftriaxone. We will need to inform the patient of metronidazole's disulfiram reaction with alcohol. I would also recommend obtaining an HIV test due to her history of toxoplasmosis chorioretinitis of the left eye. This patient was seen with and staffed by Dr. Tricia Rose, who is in agreement with the plan. Please see her note for more details. ?? Thank you for involving us in the care of this patient. Please contact the Infectious Disease team ([phone]) with any questions or concerns. Asher Garcia M.D. documented in this encounter Nursing Notes Dionne Deng R.N. - 12/15/2018 3:51 PM CDT VSS and PIV removed. AVS reviewed with patient and . All questions answered. Patient dismissed HSC with . Refused wheelchair transport. Dionne Deng R.N. - 12/15/2018 3:50 PM CDT Shift Goals: Clinical Goals for the Shift: Patient will report adequate pain control and be up to chair for all meals Identify possible barriers to meeting goals/advancing plan of care: none End of Shift Summary: Goals met. Patient reported pain at a 1-2/10 on a scale of 0-10. Patient reported adequate pain control with scheduled tylenol. Patient up independently today, ambulated in bright with and was up to chair for meals. Blanca Palmer R.N. - 12/15/2018 5:12 AM CDT Shift Goals: Clinical Goals for the Shift: Patient will have adequate pain control and rest well throughout the night Identify possible barriers to meeting goals/advancing plan of care: Pain End of Shift Summary: Patient slept well throughout most of the night. Pain was controlled with scheduled tylenol and toradol medications. Patient up and walking early this morning. DISCHARGE PLANNING ??? Patient discharge needs identified Progressing INFECTION - ADULT ??? Absence of infection during hospitalization Progressing KNOWLEDGE DEFICIT ??? Patient/family/caregiver demonstrates understanding of disease process, treatment plan, medications, and discharge instructions Progressing PAIN - ADULT ??? PT VERBALIZES/DEMONSTRATES ADEQUATE COMFORT LEVEL OR BASELINE Progressing SAFETY ADULT ??? Maintain a safe environment Progressing SKIN/TISSUE INTEGRITY ??? Skin/Tissue integrity maintained or improved Progressing ??? Oral and Nasal mucous membranes remain intact Progressing Electronically signed by: Blanca Palmer R.N. 12/15/18 5:12 AM Rosanna Molina R.N. - 12/14/2018 10:04 PM CDT Shift Goals: Clinical Goals for the Shift: Pt will report adequate pain control and walk once during shift. Identify possible barriers to meeting goals/advancing plan of care: None End of Shift Summary: Pt reported pain from 0 to 2 during shift. Pt's pain was managed on scheduled pain medications. Pt walked twice during shift. documented in this encounter OR Notes Op Note - Issac Woodward M.D., Ruma.Ruma.S. - 12/14/2018 8:26 AM CDT PROCEDURE(S) Surgical exploration, right posterior mandible. Bone biopsy and bone culture, right posterior mandible. SURGEON(S) PRIMARY SURGEON: Issac Woodward M.D., SusyS. RESIDENT ASSISTING: Darnell Willams D.D.S., M.S. ANESTHESIA TYPE General anesthesia. PRE-OPERATIVE DIAGNOSIS Right posterior mandibular osteomyelitis. POST-OPERATIVE DIAGNOSIS Right posterior mandibular osteomyelitis. COMPLICATIONS None. DESCRIPTION OF PROCEDURE The patient was brought to operating room [facility] at [facility] and was placed on the surgicalbed in a supine position. The patient underwent uneventful induction of general anesthesia and was successfully nasal endotracheally intubated. The tube was secured in the usual fashion. The patient was then positioned and padded with all pressure points appropriately relieved. She was then prepped and draped in a standard sterile fashion. A pause was then undertaken to verify the patient's identity and the nature of the procedure being performed. The procedure commenced with delineation of a mandibular sagittal split type incision in the right posterior vestibule adjacent to the anterior portion of the ascending ramus. Incision was created withthe needle-tip electrocautery through the mucosa and the submucosa to the level of the underlying masseter muscle. The dissection at this point in time was then beveled medially toward the lateral aspect of the anterior portion of the ascending ramus of the mandible. The mandible was first dissected superiorly, and then a subperiosteal plane of dissection was then created with the cautery running inferiorly and then extending onto the external oblique ridge and residual right mandibular alveolus. Additional subperiosteal dissection was then performed laterally along the mandible with the needle-tipelectrocautery. A 215 bur was then employed to harvest an approximately 1-cm x 0.5-cm block of cortical bone in the external oblique ridge region to send for culture. This was completed with a 215 bur u nder copious irrigation. The block specimen was then outfractured with a Molt 4 curette. Additional surgical exploration and curetting of the bone along the lateral aspect of the mandible was then performed superiorly. Soft cortical bone consistent with periosteal reaction was then curetted in 2 approximately 1-cm specimens. One of these specimens was sent for permanent section for histopathologic review. The 2nd specimen was placed with the block graft for bone culture. Additional curettement of the underlying medullary cavity was then performed to provide additional bone for culture. Once adequate specimens were obtained, the surgical field was then copiously irrigated with normal saline. Soft tissue was then closed utilizing 3-0 Vicryl pop-off sutures in a horizontal mattress fashion. Following closure, an inferior alveolar nerve block as well as a long buccal block was provided to aid in postoperative pain control. The posterior oropharynx was suctioned. The patient was successfully recovered from the anesthetic and extubated also in the operating room setting. She was then transferred to PACU in stable condition. DRAINS None. SPECIMENS Right posterior mandible. ESTIMATED BLOOD LOSS Less than 10 mL. INDICATION: Treatment and diagnosis. TPR: [address] Job ID: [id number] Brief Op Note - Darnell Willams D.D.S., M.S. - 12/14/2018 8:26 AM CDT BRIEF OP NOTE Procedure(s) (LRB): EXPLORATION Right Posterior Mandible. (Right) BIOPSY and Bone Culture Right Mandible. (Right) Surgeon(s) and Role: * Issac Woodward M.D., Ruma.D.S. - Primary * Darnell Willams D.D.S., M.S. - Pyrotechnic Assembler Anesthesia Type: General Pre-Operative Diagnosis: Osteomyelitis Mandible Chronic [M27.2]. Brief Operative Note Details Specimens ID Type Source Tests Collected by Time 1 : Right posterior mandible biopsy Tissue Mandible BACTERIAL CULTURE, ANAEROBIC + SUSC, FUNGAL CULTURE, ROUTINE, GRAM STAIN, ACID FAST SMEAR FOR MYCOBACTERIUM, FUNGAL SMEAR, MYCOBACTERIAL CULTURE, V, ACTINOMYCES CULTURE, BACTERIAL CULTURE, AEROBIC + SUSC Issac Woodward M.D., Ruma.D.S. 12/14/2018 0809 A : Right posterior mandible biopsy Tissue Mandible SURGICAL PATHOLOGY, [facility] Issac Woodward M.D., ShadD.S. 12/14/2018 0808 Drains * No drains in log * Estimated Blood Loss No blood loss documented. Implants * No implants in log * Darnell Willams D.D.S., M.S. documented in this encounter Miscellaneous Notes Hospital Course - Mariah Lpoez APRN, Beni.Hetal.Lucille, M.S. - 12/15/2018 12:16 PM CDT Paola Mcmullen was routinely admitted in the morning to the service of Dr. Woodward. She was brought to the operating room where general anesthesia was provided via nasotracheal intubation where she then underwent surgical exploration, right posterior mandible. Bone biopsy and bone culture, right posterior mandible. Paola Mcmullen tolerated the procedure and anesthesia well, was extubated, and then brought to the post-anesthesia care unit in stable condition. Following adequate recovery from anesthesia, she was taken to general nursing floor in [facility] where the hospitalization continued uneventfully. She was discharged tolerating oral intake with pain well controlled on oral medication, ambulating independently, and voiding spontaneously. Paola Mcmullen is returning home and received appropriate instruction and materials for ongoingcare. documented in this encounter Plan of Treatment Upcoming Encounters Date Type Specialty Care Team Description 05/12/2022 Appointment Radiology Jamel Terrazas APRN, Beni.N.PAmara, D. N.P. [address] [place] [phone] (Wo rk) 05/12/2022 Appointment Oral and Maxillofacial Issac Woodward, Surgery Marlyn, Ruma.D.S. [address] [place] [phone] (Wo rk) documented as of this encounter Procedures Procedure Name Priority Date/Time Associated Diagnosis Comme nts PLACE PERIPHERALLY Routine 12/14/2018 3:55 Osteomyelitis Resul ts for this INSERTED CENTRAL PM CDT Mandible procedure a re in CATHETER (PICC) the results section. HIV-1/-2 AG AND AB Routine 12/14/2018 3:26 Result s for this SCREEN, PLASMA PM CDT procedure are in the results section. SEDIMENTATION RATE, B Routine 12/14/2018 1:25 Res ults for this PM CDT procedure are i n the results section. CBC WITH Routine 12/14/2018 1:25 Results for this DIFFERENTIAL, B PM CDT procedure ar e in the results section. C-REACTIVE PROTEIN Routine 12/14/2018 1:25 Result s for this (CRP), S/P PM CDT procedure are i n the results section. BASIC METABOLIC Routine 12/14/2018 1:25 Results f or this PANEL, S/P PM CDT procedure are i n the results section. HEPATIC FUNCTION Routine 12/14/2018 1:22 Results for this PANEL, S PM CDT procedure are i n the results section. PULSE OXIMETRY, Routine 12/14/2018 12:54 CONTINUOUS PM CDT PULSE OXIMETRY, Routine 12/14/2018 12:54 CONTINUOUS PM CDT ADULT OXYGEN THERAPY Routine 12/14/2018 9:19 AM CDT BACTERIAL CULTURE, Routine 12/14/2018 8:09 Osteomyelitis Resul ts for this AEROBIC + SUSC AM CDT Mandible Chronic procedure are in the results section. ACTINOMYCES CULTURE Routine 12/14/2018 8:09 Osteomyelitis Resu lts for this AM CDT Mandible Chronic procedure a re in the results section. MYCOBACTERIAL Routine 12/14/2018 8:09 Osteomyelitis Results fo r this CULTURE, V AM CDT Mandible Chronic procedure a re in the results section. FUNGAL SMEAR Routine 12/14/2018 8:09 Osteomyelitis Results for this AM CDT Mandible Chronic procedure a re in the results section. ACID FAST SMEAR FOR Routine 12/14/2018 8:09 Osteomyelitis Resu lts for this MYCOBACTERIUM AM CDT Mandible Chronic procedure are in the results section. GRAM STAIN Routine 12/14/2018 8:09 Osteomyelitis Results for this AM CDT Mandible Chronic procedure a re in the results section. FUNGAL CULTURE, Routine 12/14/2018 8:09 Osteomyelitis Results for this ROUTINE AM CDT Mandible Chronic procedure a re in the results section. BACTERIAL CULTURE, Routine 12/14/2018 8:09 Osteomyelitis Resul ts for this ANAEROBIC + SUSC AM CDT Mandible Chronic procedu re are in the results section. SURGICAL PATHOLOGY, Routine 12/14/2018 8:08 Osteomyelitis Resu lts for this [facility] AM CDT Mandible Chronic procedure a re in the results section. BIOPSY MANDIBLE 12/14/2018 7:33 Osteomyelitis AM CDT Mandible Chronic EXPLORATION INCISION 12/14/2018 7:33 Osteomyelitis AM CDT Mandible Chronic documented in this encounter Results Non-IR PICC Line Placement (12/14/2018 3:55 PM CDT) Narrative MMODAL - 12/14/2018 3:55 PM CDT Brad Amin R.N. ? 12/14/2018 ??3:57 PM Non-IR PICC Line Placement Date/Time: 12/14/2018 3:55 PM Performed by: ELIAS WERNER Authorized by: SERINA DOLL Consent: ??Consent obtained: ??Written ??The benefits, risks and alternatives to the procedure and the potential need for sedation or anesthesia as well as the names, roles, and responsibilities of healthcare team memb ers performing significant interventional tasks were discussed with the patient and/or decision maker.: yes ?The benefits, risks and alternatives to the possible need for blood products were discussed with the patient and/or decision maker.: ??Not addressed [place] protocol: ??All relevant documentation and testin g were reviewed and available. All required blood products, implants, devic es and/or special equipment were made available as applicable. The pre-pr ocedure verification was conducted, the correct site was marked i f required, and the procedural time out was conducted prior to performi ng the procedure and confirmed in a procedural pause.: yes ?? Pre-procedure details: ??Indications: ??Needed after discharge for ongoing care ??Appropriate hand hygiene, gown, cap, mask, protective eyewear, sterile gloves, skin preparation, sterile drape, and strict aseptic technique were utilized as applicable for the procedure .: yes ?Site preparation: ??Chlorhexidine Sedation/Anesthesia (see MAR for exact d osages): ??Anesthesia method: ??Local infiltrati on ??Local infiltrate type: ??Lidocaine Procedure details: ??Select Line: PICC ?Line Size: ??4.0 FR ??Adult or Fernando/Peds: ??Adult ??# of Lumens: ??Single lumen ??Type of Catheter: ??Power injectable and valved ??Line Type: temporary central line ?Laterality: ??Right ??IV Location: ??Basilic ??Optimal site selected: Yes ?Blood Return: Yes ?Placement Assistance: ??ECG guidance ??Tip Verification: ??ECG ??Catheter Length (cm): ??41 ??Initial Exposed Catheter (cm): ??0 ??Mid Upper Arm Circumference (cm): ??2 7 ??All lumens flushed (Document volume i n I/O): yes ?? Post-procedure details: ??Procedure completed successfully: yes ?Complications: no apparent complicati ons ?? Serina Doll P.A.-C. M.S. PROCEDURE/MINOR SURGICAL OR DERABLES Performing Organization Address City/State/ZIP Code Phon e Number MMODAL MMODAL NA HIV-1/-2 Ag and Ab Screen, Plasma - RST/[place] (12/14/2018 3:26 PM CDT) athologist Signature HIV-1/-2 Ag Negative Negative 12/14/2018 [facility] and Ab Screen, 9:35 PM CDT [facility] Comment: Negative result does not rule out HIV in fection. If exposure to HIV infection occurred <14 d ays ago, contact the laboratory to request additi on of HIV-1 RNA detection / quantification test (HIV QN). Specimen Anatomical Collection Method Collection Time Receive d Time (Source) Location / / Volume Laterality Blood (Blood, 12/14/2018 3:26 PM 12/15/19 19 5:58 Venous) CDT PM CDT Asher Garcia M.D. LAB MICROBIOLOGY - BLOOD ORD ERABLES Performing Organization Address City/State/ZIP Code Phon e Number [facility] [address] [place], [place] [address] [facility] Sedimentation Rate (12/14/2018 1:25 PM CDT) Patholo gist Method Time Signature Sedimentation 4 0 - 29 12/14/2018 [facility] Rate, B mm/1 h 3:06 PM CDT LABORATORIES - [facility] Specimen Anatomical Collection Method Collection Time Receive d Time (Source) Location / / Volume Laterality Blood (Blood, 12/14/2018 1:25 PM 12/15/19 19 1:46 Venous) CDT PM CDT Serina Doll P.A.-C., M.S. LAB BLOOD ADD-ON Performing Organization Address City/[facility] Phon e Number [facility] LABORATORIES - [address] [place] [phone] [facility] CRP (C-Reactive Protein) (12/14/2018 1:25 PM CDT) P athologist Signature C-Reactive <3.0 <=8.0 mg/L 12/14/2018 [facility] Protein (CRP), 2:28 PM CDT LABORATORIES - [facility] Specimen Anatomical Collection Method Collection Time Receive d Time (Source) Location / / Volume Laterality Blood (Blood, 12/14/2018 1:25 PM 12/15/19 19 1:46 Venous) CDT PM CDT Serina Doll P.A.-C., M.S. LAB BLOOD ADD-ON Performing Organization Address City/[facility] Phon e Number [facility] LABORATORIES - [address] [phone] [facility] Basic Metabolic Panel (12/14/2018 1:25 PM CDT) Analysis Performed At Patho logist Time Signature Potassium, S 4.2 3.6 - 5.2 12/14/2018 [facility] mmol/L 2:28 PM CDT LABORATORIES - [facility] Sodium, S 142 135 - 145 12/14/2018 [facility] mmol/L 2:28 PM CDT LABORATORIES - [facility] Chloride, S 105 98 - 107 12/14/2018 [facility] mmol/L 2:28 PM CDT LABORATORIES - [facility] Bicarbonate, S 24 22 - 29 12/14/2018 [facility] mmol/L 2:28 PM CDT LABORATORIES - [facility] Anion Gap 13 7 - 15 12/14/2018 [facility] 2:28 PM CDT LABORATORIES - [facility] BUN (Blood Urea 12 6 - 21 12/14/2018 [facility] Nitrogen), S mg/dL 2:28 PM CDT LABORATORIES [facility] Creatinine 0.80 0.59 - 12/14/2018 [facility] 1.04 mg/dL 2:28 PM CDT LABORATORIES - [facility] eGFR-Non 83 >=60 12/14/2018 [facility] Black/ mL/min/BSA 2:28 PM CDT LABORATORIES - [facility] Comment: ----ADDITIONAL INFORMATION---- Estimated GFR calculated using the 2009 CKD_EPI creatinine equation. eGFR-Black/ >90 >=60 mL/min/BSA 12/14/2018 2:28 [facility] CDT LABORATORIES [facility] Comment: ----ADDITIONAL INFORMATION---- Estimated GFR calculated using the 2009 CKD_EPI creatinine equation. Calcium, Total, S 9.3 8.6 - 10.0 mg/dL 12/14/2018 2:28 PM [facility] CDT LABORATORIES [facility] Glucose, S 124 70 - 140 mg/dL 12/14/2018 2:28 PM [facility] CDT LABORATORIES [facility] S Specimen Anatomical Collection Method Collection Time Receive d Time (Source) Location / / Volume Laterality Blood (Blood, 12/14/2018 1:25 PM 12/15/19 19 1:46 Venous) CDT PM CDT Serina Doll P.A.-C., M.S. LAB BLOOD ADD-ON Performing Organization Address City/State/ZIP Code Phon e Number [facility] LABORATORIES - [address] [phone] [facility] (ABNORMAL) CBC with Differential, Blood (12/14/2018 1:25 PM CDT) [facility] Method Time Signature Hemoglobin 13.2 11.6 - 12/14/2018 [facility] 15.0 g/dL 2:00 PM CDT LABORATORIES - [facility] Hematocrit 39.8 35.5 - 12/14/2018 [facility] 44.9 % 2:00 PM CDT LABORATORIES - [facility] Erythrocytes 4.22 3.92 - 12/14/2018 [facility] 5.13 2:00 PM CDT LABORATORIES - x10(12)/L [facility] MCV 94.3 78.2 - 12/14/2018 [facility] 97.9 fL 2:00 PM CDT LABORATORIES - [facility] RBC Distrib 12.8 12.2 - 12/14/2018 [facility] Width 16.1 % 2:00 PM CDT LABORATORIES - [facility] Platelet Count 222 157 - 371 12/14/2018 [facility] x10(9)/L 2:00 PM CDT LABORATORIES - [facility] Leukocytes 6.7 3.4 - 9.6 12/14/2018 [facility] x10(9)/L 2:00 PM CDT LABORATORIES - [facility] Neutrophils 5.91 1.56 - 12/14/2018 [facility] 6.45 2:00 PM CDT LABORATORIES - x10(9)/L [facility] Lymphocytes 0.63 (L) 0.95 - 12/14/2018 [facility] 3.07 2:00 PM CDT LABORATORIES - x10(9)/L [facility] Monocytes 0.13 (L) 0.26 - 12/14/2018 [facility] 0.81 2:00 PM CDT LABORATORIES - x10(9)/L [facility] Eosinophils <0.03 0.03 - 12/14/2018 [facility] 0.48 2:00 PM CDT LABORATORIES - x10(9)/L [facility] Basophils <0.03 0.01 - 12/14/2018 [facility] 0.08 2:00 PM CDT LABORATORIES - x10(9)/L [facility] Specimen Anatomical Collection Method Collection Time Receive d Time (Source) Location / / Volume Laterality Blood (Blood, 12/14/2018 1:25 PM 12/15/19 19 1:46 Venous) CDT PM CDT Serina Doll P.A.-C., M.S. LAB BLOOD ADD-ON Performing Organization Address City/State/ZIP Code Phon e Number [facility] LABORATORIES - [address] [place], [place] [address] [facility] Hepatic Function Panel (12/14/2018 1:22 PM CDT) [facility] Method Time Signature Bilirubin, Total, S 0.3 <=1.2 12/14/2018 [facility] mg/dL 3:33 PM CDT LABORATORIES [facility] Bilirubin, Direct, S <0.2 0.0 - 0.3 12/14/2018 [facility] DESMOND mg/dL 3:33 PM CDT LABORATORIES - [facility] Aspartate 39 8 - 43 12/14/2018 [facility] Aminotransferase U/L 3:33 PM CDT LABORATORIE S - (AST), S [facility] Alanine 39 7 - 45 12/14/2018 [facility] Aminotransferase U/L 3:33 PM CDT LABORATORIE S - (ALT), S [facility] Alkaline 52 35 - 104 12/14/2018 [facility] Phosphatase, S U/L 3:33 PM CDT LABORATORIES - [facility] Albumin, S 4.5 3.5 - 5.0 12/14/2018 [facility] g/dL 3:33 PM CDT LABORATORIES - [facility] Protein, Total, S 6.3 6.3 - 7.9 12/14/2018 [facility] g/dL 3:33 PM CDT LABORATORIES - [facility] Specimen Anatomical Collection Method Collection Time Receive d Time (Source) Location / / Volume Laterality Blood (Blood, 12/14/2018 1:22 PM 12/15/19 19 3:02 Venous) CDT PM CDT Serina Doll P.A.-C., M.S. LAB BLOOD ADD-ON Performing Organization Address City/State/ZIP Code Phon e Number [facility] LABORATORIES - [address] [place], [place] [address] [facility] (ABNORMAL) Bacterial Culture, Aerobic + Susc (12/14/2018 8:09 AM CDT) Component Value Ref Test Analysis Performed At [facility] gist Range Method Time Signature Bacterial Susceptibilities requested by phone. 09/2018 [facility] Culture, There are no established interpretive guidelines for agent s 2:28 PM LABORATORIES - Aerobic + reported without interpretations. CDT [facility] (A) [place] Bacterial STREPTOCOCCUS MITIS GROUP, NOT S. PNEUMONIAE 12/21/2018 [facility] Culture, 2+ 2:28 PM LABORATORIES - Aerobic + - CDT [facility] (A) [facility] Comment: Additional Report Bacterial Culture, ROTHIA MUCILAGINOSA 12/21/2018 2:28 PM [facility] Aerobic + Susc 1+ CDT LABORATORIES - Unable to perform susceptibility testing. ??Organism [facility] did not grow on test medium. [facility] (A) Comment: Additional Report Bacterial Culture, HAEMOPHILUS HAEMOLYTICUS 2018 2:28 PM [facility] Aerobic + Susc 1+ CDT LABORATORIES - Beta lactamase negative. [facility] (A) Comment: Additional Report Specimen (Source) Anatomical Collection Method Collection Time Re ceived Time Location / / Volume Laterality Tissue (Mandible) 12/14/2018 8:09 AM CDT Organism Antibiotic Method Susceptibility Streptococcus mitis Penicillin SUSCEPTIBILITY, <=0.06 mcg/m L: group, not s. MANNIE (MCG/ML) Susceptible pneumoniae Streptococcus mitis Vancomycin SUSCEPTIBILITY, <=1 mcg/mL: Susceptible group, not s. MANNIE (MCG/ML) pneumoniae Streptococcus mitis Ceftriaxone SUSCEPTIBILITY, <=0.5 mcg/mL : group, not s. MANNIE (MCG/ML) Susceptible pneumoniae Streptococcus mitis Erythromycin SUSCEPTIBILITY, >0.5 mcg/mL: Resistant group, not s. MANNIE (MCG/ML) pneumoniae Streptococcus mitis Levofloxacin SUSCEPTIBILITY, <=2 mcg/mL: Susceptible group, not s. MANNIE (MCG/ML) pneumoniae Haemophilus Ceftriaxone SUSCEPTIBILITY, <=0.5 mcg/mL haemolyticus MANNIE (MCG/ML) Haemophilus Trimethoprim + SUSCEPTIBILITY, <=0.5/9.5 mcg/mL haemolyticus Sulfamethoxazole MANNIE (MCG/ML) Issac Woodward M.D., D.D.S. LAB MICROBIOLOGY - GENERA L ORDERABLES Performing Organization Address City/[facility]/ZIP Code Phon e Number [facility] [facility] - [address] Actinomyces Culture (12/14/2018 8:09 AM CDT) Contraqer Method Time Signature Actinomyces No growth 12/28/2018 [facility] Culture after 14 9:39 AM CDT LABORATORIES - days of [facility] . Specimen (Source) Anatomical Collection Method Collection Time Re ceived Time Location / / Volume Laterality Tissue (Mandible) 12/14/2018 8:09 AM CDT Issac Woodward M.D., D.D.S. LAB MICROBIOLOGY - GENERA L ORDERABLES Performing Organization Address [facility] Phon e Number [facility] - [address] Mycobacterial Culture (12/14/2018 8:09 AM CDT) Contraqer Method Time Signature Mycobacterial No growth 01/25/2019 Culture after 42 1:01 PM CDT days of incubation . Specimen (Source) Anatomical Collection Method Collection Time Re ceived Time Location / / Volume Laterality Tissue (Mandible) 12/14/2018 8:09 AM CDT Issac Woodward M.D., D.D.S. LAB MICROBIOLOGY - GENERA L ORDERABLES Performing Organization Address City/[facility]/ZIP Code Phon e Number [facility] - [address] [place] [id number] [facility] Fungal Smear (12/14/2018 8:09 AM CDT) Patholo gist Method Time Signature Fungal Smear Negative. 12/14/2018 [facility] 1:31 PM CDT [facility] Specimen (Source) Anatomical Collection Method Collection Time Re ceived Time Location / / Volume Laterality Tissue (Mandible) 12/14/2018 8:09 AM CDT Issac Woodward M.D., D.D.S. LAB MICROBIOLOGY - GENERA L ORDERABLES Performing Organization Address [facility] Phon e Number [facility] - [address] [phone] [facility] Acid Fast Smear For Mycobacterium (12/14/2018 8:09 AM CDT) Patholo gist Method Time Signature Acid Fast Smear Negative. 12/14/2018 [facility] For Mycobacterium 5:47 PM CDT LABORATORI ES [facility] Specimen (Source) Anatomical Collection Method Collection Time Re ceived Time Location / / Volume Laterality Tissue (Mandible) 12/14/2018 8:09 AM CDT Issac Woodward M.D., D.D.S. LAB MICROBIOLOGY - GENERA L ORDERABLES Performing Organization Address City/[facility] Code Phon e Number [facility] - [address] [id number] [facility] Gram Stain (12/14/2018 8:09 AM CDT) Patholo gist Method Time Signature Gram Stain No organisms 12/14/2018 [facility] seen. 9:47 AM CDT [facility] Specimen (Source) Anatomical Collection Method Collection Time Re ceived Time Location / / Volume Laterality Tissue (Mandible) 12/14/2018 8:09 AM CDT Issac Woodward M.D., D.D.SAmara LAB MICROBIOLOGY - GENERA L ORDERABLES Performing Organization Address City/[facility]/ZIP Code Phon e Number [facility] - [address] [place], [place] [address] [facility] Fungal Culture, Routine (12/14/2018 8:09 AM CDT) [facility] Method Time Signature Fungal No growth 01/07/2019 [facility] Culture, after 24 1:01 PM CDT LABORATORIES - Routine days of [facility] . Specimen (Source) Anatomical Collection Method Collection Time Re ceived Time Location / / Volume Laterality Tissue (Mandible) 12/14/2018 8:09 AM CDT Issac Woodward M.D., D.D.S. LAB MICROBIOLOGY - GENERA L ORDERABLES Performing Organization Address City/State/ZIP Code Phon e Number [facility] - [address] [phone] [facility] (ABNORMAL) Bacterial Culture, Anaerobic + Sus (12/14/2018 8:09 AM CDT) [facility] Method Time Signature Bacterial Mixed Irish, 12/18/2018 [facility] Culture, anaerobes 3:17 PM CDT LABORATORIES - Anaerobic + present, not [facility] further CAMPUS identified. (A) Specimen (Source) Anatomical Collection Method Collection Time Re ceived Time Location / / Volume Laterality Tissue (Mandible) 12/14/2018 8:09 AM CDT Issac Woodward M.D., D.D.S. LAB MICROBIOLOGY - GENERA L ORDERABLES Performing Organization Address City/[facility]/ZIP Code Phon e Number [facility] - [address] [phone] [facility] Surgical Pathology, Frozen Lab (12/14/2018 8:08 AM CDT) Component Value Ref Test Analysis Performed At [facility] Method Time Signature Gross Description A. ??Received fresh labeled right posterior martita ible 12/18/2018 [facility] biopsy is a 1 x 0.8 x 0.2 cm aggregate of red bone 9:05 AM CDT LABORATORIES - fragments. ??All submitted for permanent sections, following [facility] decalcification. ??Grossed by [facility]. CAMPUS Report Mike Reyes M.D. [phone] 12/18/2018 [facility] electronically I verify that I have examined all relevant slides/ma terials 9:05 AM CDT LABORATORIES - signed by for the specimen(s) and rendered or confirmed the diagnosi s. [facility] 12/18/2018 [facility] 9:05 AM CDT LABORATORIES [facility] Block Summary A Right posterior mandible biopsy [facility] A1 Right posterior mandible biopsy 9:05 AM CDT [facility] Interpretation FINAL DIAGNOSIS 12/18/2018 [facility] A. 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 [facility] Specimen (Source) Anatomical Collection Method Collection Time Re ceived Time Location / / Volume Laterality Tissue (Mandible) 12/14/2018 8:08 AM CDT Narrative This result has an attachment that is no t available. Issac Woodward M.D., D.D.SAmara LAB SURG PATH ORDERABLES Performing Organization Address City/State/ZIP Code Phon e Number [facility] - [address] documented in this encounter Visit Diagnoses Diagnosis Osteomyelitis Mandible Chronic - Primary Osteomyelitis Mandible Hypertension Essential Primary Obstructive Sleep Apnea Adult Osteomyelitis Mandible Chronic documented in this encounter Admitting Diagnoses Diagnosis Osteomyelitis Mandible Chronic Osteomyelitis Mandible documented in this encounter Administered Medications Inactive Administered Medications - up to 3 most recent administrations Medication Order MAR Action Action Date Dose Rate Site acetaminophen tablet 1,000 mg Given 12/15/2018 3:17 PM CDT 1,000 mg (TYLENOL) 1,000 mg, oral, Every 6 hours, First dose on Bernie 12/14/18 at 1300 Given 12/15/2018 6:25 AM CDT 1,000 mg Given 12/15/2018 1:39 AM CDT 1,000 mg carBAMazepine tablet 300 mg (TEGretol) Given 12/15/2018 8:43 AM CDT 300 mg 300 mg, oral, 2 times daily, First dose on Bernie 12/14/18 at 2100 Given 12/14/2018 9:05 PM CDT 300 mg D5W infusion 10-250 mL/hr, intravenous, As needed, Medications Inco mpatible with 0.9% NaCL, Starting on Bernie 12/14/18 at 1318, Infuse at the same ra te as the piggyback until tubing clears or up to a volume of 20 mL pre and post infusion for medications incompatible with 0.9% NaCL. Use 100 mL bag then disca rd. D5W infusion 10-250 mL/hr, intravenous, As needed, Medications Inco mpatible with 0.9% NaCL, Starting on Tue12/14/18 at 1554, Infuse at the same ra te as the piggyback until tubing clears or up to a volume of 20 mL pre and post infusion for medications incompatible with 0.9% NaCL. Use 100 mL bag then disca rd. enoxaparin injection 40 mg Given 12/15/2018 8:43 AM CDT 40 mg Right Upper Abdomen (LOVENOX) 40 mg, subcutaneous, Daily, First dose on Tue12/15/18 at 0900 ertapenem 1 g in NaCl 0.9% IVPB New Bag 12/15/2018 9:56 AM CDT 1 g 200 mL/hr (INVANZ) 1 g, intravenous, at 200 mL/hr, Administer over 30 Minutes, Every 24 hours, First dose on Tue12/15/18 at 0900, Mini-Bag Plus bag, Restriction Criteria (Pharmacy will review and approve if criteria met): Does not meet criteria (requires ID approval), Approval obtained from specialty provider? Yes, Authorizing provider? Dr. Walker, Drug Monitoring Program: Pharmacist to adjust medication dosing based on indication and drug clearance factors., Indications: Head, neck, and ENT infection ketorolac injection 15 mg (TORADOL) Given 12/15/2018 11:39 AM CDT 15 mg 15 mg, intravenous, Every 6 hours scheduled, First dose on Tue12/14/18 at 1800, For 8 doses, Adult IV push rate: Over 15 seconds. Peds IV push rate: Over 1 minute. 60 mg dose only for IM, not recommended for IV. Given 12/15/2018 6:25 AM CDT 15 mg Given 12/15/2018 12:55 AM CDT 15 mg lactated ringers Continued from OR 12/14/2018 9:20 AM CDT 20 mL/hr 20 mL/hr 20 mL/hr, intravenous, Continuous, Starting on Tue12/14/18 at 0930, PACU & Post-Op lidocaine-EPINEPHrine 2 %-1:100,000 Given 12/14/2018 9:02 AM CDT 4 mL Other injection (XYLOCAINE W/EPI) As needed, Starting on Tue12/14/18 at 0902, Intra-Op lisinopril tablet 10 mg (PRINIVIL,ZESTRI L) Given 12/15/2018 8:43 AM CDT 10 mg 10 mg, oral, Daily, First dose (after last modification) on Tue12/14/18 at 1500 Given 12/14/2018 3:01 PM CDT 10 mg LORazepam injection 0.5 mg (ATIVAN) 0.5 mg, intravenous, Every 1 hour PRN, w ithdrawal, Starting on Tue12/14/18 at 1453, CIWA Score 10-12 For intravenous use, dilute with equa l volume of 0.9% NS LORazepam injection 1 mg (ATIVAN) 1 mg, intravenous, Every 1 hour PRN, wit hdrawal, Starting on Tue12/14/18 at 1453, CIWA Score 13-14 For intravenous use, dilute with equa l volume of 0.9% NS LORazepam injection 1.5 mg (ATIVAN) 1.5 mg, intravenous, Every 1 hour PRN, w ithdrawal, Starting on Tue12/14/18 at 1453, CIWA Score 15-17 For intravenous use, dilute with equa l volume of 0.9% NS LORazepam injection 2 mg (ATIVAN) 2 mg, intravenous, Every 1 hour PRN, wit hdrawal, Starting on Tue12/14/18 at 1453, CIWA Score 18 or greater For intravenous use, dilute with equal volume of 0.9% NS LORazepam tablet 1 mg (ATIVAN) 1 mg, oral, Every 1 hour PRN, withdrawal, Starting on Tue12/14/18 at 1453, CIWA Score 10-12 LORazepam tablet 2 mg (ATIVAN) 2 mg, oral, Every 1 hour PRN, withdrawal, Starting on Tue12/14/18 at 1453, CIWA Score 13-14 LORazepam tablet 3 mg (ATIVAN) 3 mg, oral, Every 1 hour PRN, withdrawal, Starting on Tue12/14/18 at 1453, CIWA Score 15-17 LORazepam tablet 4 mg (ATIVAN) 4 mg, oral, Every 1 hour PRN, withdrawal, Starting on Tue12/14/18 at 1453, CIWA Score 18 or greater multivitamin/mineral- tablet 1 Given 12/15/2018 8:43 AM CDT 1 tablet tablet 1 tablet, oral, Daily, First dose on Tue12/15/18 at 0900 NaCl 0.9% infusion 10-250 mL/hr, intravenous, As needed, Be tween Consecutive Piggyback Medications, Starting on Bernie 12/14/18 at 1318, Infuse at the same ra te as the piggyback until tubing clears or up to a volume of 20 mL . Select for IV medication administration when no maintenance IV available or when IV medication s are not compatible with maintenance fluid. NaCl 0.9% infusion New Bag 12/14/2018 3:38 PM CDT 20 mL/hr 20 mL/hr 10-250 mL/hr, intravenous, As needed, Post Medications (Hazardous/Low Fluid Volume), Starting on Bernie 12/14/18 at 1318, Infuse at the same rate as the medication until tubing cleared of medication, then discard. NaCl 0.9% infusion 10-250 mL/hr, intravenous, As needed, Be tween Consecutive Piggyback Medications, Starting on Bernie 12/14/18 at 1554, Infuse at the same ra te as the piggyback until tubing clears or up to a volume of 20 mL . Select for IV medication administration when no maintenance IV available or when IV medication s are not compatible with maintenance fluid. NaCl 0.9% infusion 10-250 mL/hr, intravenous, As needed, Post Medications (Hazardous/Low Fluid Volume), Starting on Bernie 12/14/18 at 1554 , Infuse at the same rate as the medication until tubing cleared of medication, then discard. sennosides-docusate sodium 8.6-50 mg per Given 12/14/2018 9: 05 PM CDT 2 tablets tablet 2 tablet (SENOKOT-S) 2 tablet, oral, Daily at bedtime, First dose on Bernie 12/14/18 at 2100, While on opioids. Hold for diarrhea. sodium chloride 0.9 % injection 10 mL Given 12/14/2018 2:25 PM CDT 10 mL 10 mL, intravenous, As needed, line care, Peripheral Intravenous Catheter and Rapid Infusion Catheter, Starting on Bernie 12/14/18 at 1318, Prior to blood sampling, post blood transfusion or post blood sampling. sodium chloride 0.9 % injection 10 mL 10 mL, intravenous, As needed, line care , Peripherally Inserted Central Catheter (PICC) Valved, Starting on Tue12/14/18 a t 1554, Prior to and following infusion, between multiple consecutive infusions, prior to and following blood sampling, post blood transfusion. sodium chloride 0.9 % injection 10-30 mL Given 12/14/2018 6:57 PM CDT 10 mL 10-30 mL, intravenous, Every 7 days, First dose on Tue12/14/18 at 1600, Peripherally Inserted Central Catheter (PICC) Valved: When no infusion to maintain patency flush 10 mL per lumen. sodium chloride 0.9 % injection 3 mL 3 mL, intravenous, As needed, line care, Peripheral Intravenous Catheter and Rapid Infusion Catheter, Starting on Bernie at 1318, Prior to and following infusion and between multiple consecutive infusions. sodium chloride 0.9 % injection 3 mL Given 12/15/2018 8:57 AM CDT 3 mL 3 mL, intravenous, Every 12 hours scheduled, First dose on Tue12/14/18 at 2100, Peripheral Intravenous Catheter and Rapid Infusion Catheter: When no infusion to maintain patency. thiamine tablet 100 mg (VITAMIN B1) Given 12/15/2018 8:43 AM CDT 100 mg 100 mg, oral, Daily, First dose on Tue12/15/18 at 0900, For 5 days documented in this encounter Active and Recently Administered Medications Times are shown in CDT. Scheduled Medication Order 12/13/2018 12/14/2018 12/15/2018 acetaminophen tablet 1,000 mg (TYLENOL) 1424 (Given - Provider: Elijah Severino R.N.)1930 (Given - Provider: Rosanna Molina RTammy) 0139 (Given - Provider: Blanca Palmer R.NAmara)0625 (Given - Provider: Blanca Palmer R.NAmara)1517 (Given - Provider: Dionne Deng R.NAmara) 1,000 mg, oral, Every 6 hours, First dose on Tue12/14/18 at 1300 carBAMazepine tablet 300 mg (TEGretol) 2 105 (Given - Provider: Rosanna Molina RAmaraNAmara) 0843 (Given - Provider: Dionne baldwin R.NAmara) 300 mg, oral, 2 times daily, First dose on Tue12/14/18 at 2100 cefTRIAXone in dextrose (iso-osm) IVPB 2 g (ROCEPHIN) (CANCE LED) 1538 (New Bag - Provider: Rosanna Molina RTammy) 2 g, intravenous, at 200 mL/hr, Administ er over 15 Minutes, Every 24 hours, First dose on Bernie 12/14/18 at 1515, premix bag, Drug Monitoring Program: Pharmacist to adjust medication dosing based on indica tion and drug clearance factors., Indications: Bone and/or joint infection dexamethasone injection 8 mg (DECADRON) (CANCELED) 1424 (Given - Provider: Elijah Severino RAmaraNAmara) 8 mg, intravenous, Every 8 hours, First dose on Bernie 12/14/18 at 1515, For 5 doses, Start 8 hours after intra-operative dose given. enoxaparin injection 40 mg (LOVENOX) 0843 (Given - Provider: Dionne Deng RTammy) 40 mg, subcutaneous, Daily, First dose on Tue12/15/18 at 0900 ertapenem 1 g in NaCl 0.9% IVPB (INVANZ) 0956 (New Bag - Provider: Dionne Deng RTammy) 1 g, intravenous, at 200 mL/hr, Administ er over 30 Minutes, Every 24 hours, First dose on Tue12/15/18 at 0900, Mini-Bag Plus bag, Restriction Criteria (Pharmacy will review and approve if criteria met): Does not meet criteria (requires ID amira roval), Approval obtained from specialty provider? Yes, Authorizing provider? Dr. Walker, Drug Monitoring Program: Pharmacist to adjust medication dosing based on i ndication and drug clearance factors., I ndications: Head, neck, and ENT infection ketorolac injection 15 mg (TORADOL) 1851 (Given - Provider: Rosanna Molina RTammy) 0055 (Given - Provider: Blanca Palmer RAmaraNAmara)0625 (Given - Provider: Blanca Palmer RAmaraNAmara)1139 (Given - Provider: Dionne Deng RAmaraNAmara) 15 mg, intravenous, Every 6 hours schedu led, First dose on Tue12/14/18 at 1800, For 8 doses, Adult IV push rate: Over 15 seconds. Peds IV push rate: Over 1 minute. 60 mg dose only for IM, not recommended for IV. lisinopril tablet 10 mg (PRINIVIL,ZESTRIL) 1501 (Given - Provider: Hellen HendricksonNAmara) 0843 (Given - Provider: Dionne baldwin R.NAmara) 10 mg, oral, Daily, First dose (after last modificatio n) on Tue12/14/18 at 1500 metroNIDAZOLE tablet 500 mg (FLAGYL) (CANCELED) 2104 (Given - Provider: Hellen ArmentaNAmara) 0843 (Given - Provider: Dionne baldwin R.NAmara) 500 mg, oral, 3 times daily, First dose on Tue12/14/18 at 2100, Indications: Bone and/or joint infection multivitamin/mineral- tablet 1 tablet 0843 (Given - Provider: Hellen FairNAmara) 1 tablet, oral, Daily, First dose on Tue12/15/18 at 0900 sennosides-docusate sodium 8.6-50 mg per tablet 2 tablet (SE NOKOT-S) 2104 (Given - Provider: Rosanna Molina R.N.) 2 tablet, oral, Daily at bedtime, First dose on Tue12/14/18 at 2100, While on opioids. Hold for diarrhea. sodium chloride 0.9 % injection 10-30 mL 1857 (Given - Provider: Rosanna Molina R.N.) 10-30 mL, intravenous, Every 7 days, Fir st dose on Tue12/14/18 at 1600, Peripherally Inserted Central Catheter (PICC) Valved: When no infusion to maintain patency flush 10 mL per lumen. sodium chloride 0.9 % injection 3 mL 210 7 (Not Given - Provider: Rosanna Molina R.N. - Reason: Other) 0857 (Given - Provider: Dionne baldwin R.NAmara) 3 mL, intravenous, Every 12 hours schedu led, First dose on Tue12/14/18 at 2100, Peripheral Intravenous Catheter and Rapid Infusion Catheter: When no infusion to maintain patency. thiamine tablet 100 mg (VITAMIN B1) 0843 (Given - Provider: Dionne Deng R.N.) 100 mg, oral, Daily, First dose on Tue12/15/18 at 0900, For 5 da ys Continuous Medication Order 12/13/2018 12/14/2018 12/15/2018 lactated ringers 1316 (Not Given - Pr ovider: Elijah Severino R.N. - Reason: Other - Comment: SL PO>600) 110 mL/hr, intravenous, at 110 mL/hr, Continuous, Starting T 12/14/18 at 1300 lactated ringers 0920 (Continued from OR - Provider: Heidi Baptiste R.N.)1300 (Stopped - Provider: Elijah Severino R.N.) 20 mL/hr, intravenous, Continuous, Start ing on Bernie 12/14/18 at 0930, PACU & Post-Op PRN Medication Order 12/13/2018 12/14/2018 12/15/2018 D5W infusion 10-250 mL/hr, intravenous, As needed, Me dications Incompatible with 0.9% NaCL, Starting on Bernie 12/14/18 at 1318, Infuse at the same rate as the piggyback until tubing clears or up to a volume of 20 mL pr e and post infusion for medications inco mpatible with 0.9% NaCL. Use 100 mL bag then discard. D5W infusion 10-250 mL/hr, intravenous, As needed, Me dications Incompatible with 0.9% NaCL, Starting on Bernie 12/14/18 at 1554, Infuse at the same rate as the piggyback until tubing clears or up to a volume of 20 mL pr e and post infusion for medications inco mpatible with 0.9% NaCL. Use 100 mL bag then discard. droperidol injection 0.625 mg (INAPSINE) 0.625 mg, intravenous, Every 6 hours PRN , nausea, vomiting, Starting Bernie 12/14/18 at 1254, For 48 hours, Total of 3 doses in 24 hour period. RASS must be -2 or higher to administer. Reassess for nausea o r vomiting after at least 10 minutes. If nausea or vomiting persists administer next ordered antiemetic medications (order for antiemetic medication administration ondansetron then droperidol then promethazine). fentaNYL injection 25 mcg (SUBLIMAZE) (CANCELED) 0934 (Given - Provider: Heidi Baptiste R.N.)0941 (Given - Provider: Heidi Baptiste R.N.)1010 (Given - Provider: Heidi Baptiste R.N.)1034 (Given - Provider: Heidi Baptiste R.N.) 25 mcg, intravenous, Every 2 min PRN, mo derate pain or score 4-6 of 10, severe pain or score 7-10 of 10, Starting on Bernie 12/14/18 at 0918, PACU (only), Up to maximum total dose of 200 mcg labetalol injection 10 mg (NORMODYNE,TRANDATE) (COMPLETED) 1046 (Given - Provider: Heidi Baptiste R.N.) 10 mg, intravenous, Once as needed, high blood pressure, per provider instructions, Starting on Bernie 12/14/18 at 1046, For 1 dose, Follow institution's IV administration guidelines lidocaine-EPINEPHrine 2 %-1:100,000 injection (XYLOCAINE W/E PI) (CANCELED) 0902 (Given - Provider: Darnell Willams D.D.S., M.S. - Comment: mouth) As needed, Starting on Bernie 12/14/18 at 0902, Intra-Op LORazepam injection 0.5 mg (ATIVAN)(Linked Group 1) 0.5 mg, intravenous, Every 1 hour PRN, w ithdrawal, Starting on Bernie 12/14/18 at 1453, CIWA Score 10-12 For intravenous use, dilute with equal volume of 0.9% NS LORazepam injection 1 mg (ATIVAN)(Linked Group 1) 1 mg, intravenous, Every 1 hour PRN, wit hdrawal, Starting on Bernie 12/14/18 at 1453, CIWA Score 13-14 For intravenous use, dilute with equal volume of 0.9% NS LORazepam injection 1.5 mg (ATIVAN)(Linked Group 1) 1.5 mg, intravenous, Every 1 hour PRN, w ithdrawal, Starting on Bernie 12/14/18 at 1453, CIWA Score 15-17 For intravenous use, dilute with equal volume of 0.9% NS LORazepam injection 2 mg (ATIVAN)(Linked Group 1) 2 mg, intravenous, Every 1 hour PRN, wit hdrawal, Starting on Bernie 12/14/18 at 1453, CIWA Score 18 or greater For intravenous use, dilute with equal volume of 0.9% NS LORazepam tablet 1 mg (ATIVAN)(Linked Group 1) 1 mg, oral, Every 1 hour PRN, withdrawal , Starting on Bernie 12/14/18 at 1453, CIWA Score 10-12 LORazepam tablet 2 mg (ATIVAN)(Linked Group 1) 2 mg, oral, Every 1 hour PRN, withdrawal , Starting on Bernie 12/14/18 at 1453, CIWA Score 13-14 LORazepam tablet 3 mg (ATIVAN)(Linked Group 1) 3 mg, oral, Every 1 hour PRN, withdrawal , Starting on Bernie 12/14/18 at 1453, CIWA Score 15-17 LORazepam tablet 4 mg (ATIVAN)(Linked Group 1) 4 mg, oral, Every 1 hour PRN, withdrawal , Starting on Bernie 12/14/18 at 1453, CIWA Score 18 or greater NaCl 0.9% infusion 10-250 mL/hr, intravenous, As needed, Be tween Consecutive Piggyback Medications, Starting on Bernie 12/14/18 at 1318, Infuse at the same rate as the piggyback until tubing clears or up to a volume of 20 mL. Select for IV medication administration when no maintenance IV available or when IV medications are not compatible with maintenance fluid. NaCl 0.9% infusion 1538 (New Bag - Prov ider: Rosanna Molina R.NAmara)1613 (Stopped - Provider: Rosanna Molina RTammy) 10-250 mL/hr, intravenous, As needed, Po st Medications (Hazardous/Low Fluid Volume), Starting on Bernie 12/14/18 at 1318, Infuse at the same rate as the medication until tubing cleared of medication, then discard. NaCl 0.9% infusion 10-250 mL/hr, intravenous, As needed, Be tween Consecutive Piggyback Medications, Starting on Bernie 12/14/18 at 1554, Infuse at the same rate as the piggyback until tubing clears or up to a volume of 20 mL. Select for IV medication administration when no maintenance IV available or when IV medications are not compatible with maintenance fluid. NaCl 0.9% infusion 10-250 mL/hr, intravenous, As needed, Po st Medications (Hazardous/Low Fluid Volume), Starting on Bernie 12/14/18 at 1554, Infuse at the same rate as the medication until tubing cleared of medication, then discard. naloxone injection 0.2 mg (NARCAN) 0.2 mg, intravenous, As needed, respirat ory depression, Starting Bernie 12/14/18 at 1254, For respiratory rate less than 8 breaths per minute or RASS score of -3, - 4, -5. Apply oxygen to keep oxygen saturations greater than 90% and notify service. ondansetron (PF) injection 4 mg (ZOFRAN) 4 mg, intravenous, Every 6 hours PRN, na usea, vomiting, Starting Bernie 12/14/18 at 1254, For 48 hours, Reassess for nausea or vomiting after at least 10 minutes. If nausea or vomiting persists administer n ext ordered antiemetic medications (orde r for antiemetic medication administration ondansetron then droperidol then promethazine). oxyCODONE solution 10 mg (ROXICODONE) 10 mg, oral, Every 4 hours PRN, moderate pain or score 4-6 of 10, Starting Bernie 12/14/18 at 1254 oxyCODONE solution 15 mg (ROXICODONE) 15 mg, oral, Every 4 hours PRN, severe p ain or score 7-10 of 10, Starting Bernie 12/14/18 at 1254 oxyCODONE solution 5 mg (ROXICODONE) 5 mg, oral, Every 4 hours PRN, mild pain or score 1-3 of 10, Starting Bernie 12/14/18 at 1254 sodium chloride 0.9 % injection 10 mL 14 25 (Given - Provider: Elijah Severino R.N.) 10 mL, intravenous, As needed, line care , Peripheral Intravenous Catheter and Rapid Infusion Catheter, Starting on Bernie 12/14/18 at 1318, Prior to blood sampling, post blood transfusion or post blood sampling. sodium chloride 0.9 % injection 10 mL 10 mL, intravenous, As needed, line care , Peripherally Inserted Central Catheter (PICC) Valved, Starting on Bernie 12/14/18 at 1554, Prior to and following infusion, between multiple consecutive infusions, prior to and following blood sampling, post blood transfusion. sodium chloride 0.9 % injection 3 mL 3 mL, intravenous, As needed, line care, Peripheral Intravenous Catheter and Rapid Infusion Catheter, Starting on Bernie 12/14/18 at 1318, Prior to and following infusion and between multiple consecutive infusions. Linked Groups Order Group 1: LORazepam tablet 1 mg (ATIVAN)Jump to med 1 mg, oral, Every 1 hour PRN, withdrawal , Starting on Bernie 12/14/18 at 1453
CIWA Score 10-12
Or LORazepam injection 0.5 mg (ATIVAN)Jump to med 0.5 mg, intravenous, Every 1 hour PRN, w ithdrawal, Starting on Bernie 12/14/18 at 1453
CIWA Score 10-12 For intravenous use, dilute with equal volume of 0.9% NS
Or LORazepam tablet 2 mg (ATIVAN)Jump to med 2 mg, oral, Every 1 hour PRN, withdrawal , Starting on Bernie 12/14/18 at 1453
CIWA Score 13-14
Or LORazepam injection 1 mg (ATIVAN)Jump to med 1 mg, intravenous, Every 1 hour PRN, wit hdrawal, Starting on Bernie 12/14/18 at 1453
CIWA Score 13-14 For intravenous use, dilute with equal volume of 0.9% NS
Or LORazepam tablet 3 mg (ATIVAN)Jump to med 3 mg, oral, Every 1 hour PRN, withdrawal , Starting on Bernie 12/14/18 at 1453
CIWA Score 15-17
Or LORazepam injection 1.5 mg (ATIVAN)Jump to med 1.5 mg, intravenous, Every 1 hour PRN, w ithdrawal, Starting on Bernie 12/14/18 at 1453
CIWA Score 15-17 For intravenous use, dilute with equal volume of 0.9% NS
Or LORazepam tablet 4 mg (ATIVAN)Jump to med 4 mg, oral, Every 1 hour PRN, withdrawal , Starting on Bernie 12/14/18 at 1453
CIWA Score 18 or greater
Or LORazepam injection 2 mg (ATIVAN)Jump to med 2 mg, intravenous, Every 1 hour PRN, wit hdrawal, Starting on Bernie 12/14/18 at 1453
CIWA Score 18 or greater For intravenous use, dilute with equal volume of 0.9% NS
documented in this encounter
--- OUTSIDE RECORDS SUMMARY | 2022-05-05 14:43 | XMS_ITS | Encounter Summary ---
:1965 Author Organization [facility] Address [address] [place] [address] Care Team Providers Name Role Phone Unavailable Primary Care Provider Unavailable Encounter Details Date Type Department Care Team Description 12/13/2018 Hospital Encounter Department of Huseyin Bolton Osteomye litis Mandible Laboratory Medicine MKayla, D.MAmaraD. and Pathology, [address] [place] [address], in [place], [place] [phone] [place] [address] [place], [place] (Work) [phone] Social History Tobacco Use Types Packs/Day Years Used Date Smoking Tobacco: Never Assessed Sex Assigned at Date Recorded Female 12/22/2018 [...] 02/13/2020 D3) 5,000 Unit capsule mouth daily. ertapenem (INVanz) 100 Infuse 10 mL (1 g 300 mL 1 201812/15/2018 mg/mL injection total) into a venous catheter daily. fish oil 500 mg capsule Take [...] 5 mL into a 30 Syringe 2 201812/15/2018 injection venous catheter every 8 (eight) hours. Flush PICC line per protocol. documented as of this encounter Plan of Treatment Upcoming Encounters Date Type Specialty Care Team Description 05/12/2022 Appointment Radiology Jamel Terrazas APRN, C.N.P., D. N.P. [address] [place] [phone] (Vasiliy ac) 05/12/2022 Appointment Oral and Maxillofacial Issac Woodward Surgery M.D., D.D.S. [address] [place] [phone] (Vasiliy ac) documented as of this encounter Procedures Procedure Name Priority Date/Time Associated Diagnosis Comme nts BUN (BLOOD UREA Routine 12/13/2018 10:57 Osteomyelitis Mandibl e Results for this NITROGEN), S/P AM CDT procedure are in the results section. SODIUM, S/P Routine 12/13/2018 10:57 Osteomyelitis Mandible R esults for this AM CDT procedure are i n the results section. POTASSIUM, S/P Routine 12/13/2018 10:57 Osteomyelitis Mandible Results for this AM CDT procedure are i n the results section. CREATININE WITH Routine 12/13/2018 10:57 Osteomyelitis Mandibl e Results for this EGFR, S/P AM CDT procedure are i n the results section. CHLORIDE, S/P Routine 12/13/2018 10:57 Osteomyelitis Mandible Results for this AM CDT procedure are i n the results section. BICARBONATE, B/S/P Routine 12/13/2018 10:57 Osteomyelitis Teddy ible Results for this AM CDT procedure are i n the results section. documented in this encounter Results Sodium (12/13/2018 10:57 AM CDT) P athologist Signature Sodium, S 142 135 - 145 12/13/2018 [facility] mmol/L 12:00 PM CDT LABORATORIES - [facility] Specimen Anatomical Collection Method Collection Time Receive d Time (Source) Location / / Volume Laterality Blood (Blood, 12/13/2018 10:57 12/13/2018 Venous) AM CDT 11:18 AM CDT Huseyin Bolton M.D., Sarah LAB BLOOD ADD-ON Performing Organization Address City/[facility] Code Phon e Number [facility] LABORATORIES - [address] (ABNORMAL) Potassium (12/13/2018 10:57 AM CDT) Analysis Performed At Patho logist Time Signature Potassium, S 5.5 (H) 3.6 - 5.2 12/13/2018 [facility] mmol/L 12:00 PM CDT LABORATORIES - [facility] Specimen Anatomical Collection Method Collection Time Receive d Time (Source) Location / / Volume Laterality Blood (Blood, 12/13/2018 10:57 12/13/2018 Venous) AM CDT 11:18 AM CDT Shad Yap M.D.MKayal LAB BLOOD ADD-ON Performing Organization Address City/State/ZIP Code Phon e Number [facility] LABORATORIES - 200 [place] [phone] [facility] Creatinine with Estimated GFR (12/13/2018 10:57 AM CDT) Analysis Performed At Patho logist Time Signature Creatinine 0.81 0.59 - 12/13/2018 [facility] 1.04 mg/dL 12:00 PM CDT LABORATORIES - [facility] eGFR-Non 82 >=60 12/13/2018 [facility] Black/ mL/min/BSA 12:00 PM CDT LABORATORIES - [facility] Comment: ----ADDITIONAL INFORMATION---- Estimated GFR calculated using the 2009 CKD_EPI creatinine equation. eGFR-Black/ >90 >=60 mL/min/BSA 12/13/2018 12:0 0 [facility] CDT LABORATORIES - [facility] Comment: ----ADDITIONAL INFORMATION---- Estimated GFR calculated using the 2009 CKD_EPI creatinine equation. Specimen Anatomical Collection Method Collection Time Receive d Time (Source) Location / / Volume Laterality Blood (Blood, 12/13/2018 10:57 12/13/2018 Venous) AM CDT 11:18 AM CDT Shad Yap M.D.MKayla LAB BLOOD ADD-ON Performing Organization Address City/State/ZIP Code Phon e Number [facility] LABORATORIES - [address] [place] [phone] [facility] Chloride (12/13/2018 10:57 AM CDT) [facility] Chloride, S 102 98 - 107 12/13/2018 [facility] mmol/L 12:00 PM CDT LABORATORIES - [facility] Specimen Anatomical Collection Method Collection Time Receive d Time (Source) Location / / Volume Laterality Blood (Blood, 12/13/2018 10:57 12/13/2018 Venous) AM CDT 11:18 AM CDT Shad Yap M.D.MCece. LAB BLOOD ADD-ON Performing Organization Address City/State/ZIP Code Phon e Number [facility] LABORATORIES - [address] [place] [phone] [facility] BUN (Blood Urea Nitrogen) (12/13/2018 10:57 AM CDT) athologist Signature BUN (Blood 15 6 - 21 12/13/2018 [facility] Urea mg/dL 12:00 PM CDT LABORATORIES - Nitrogen), S [facility] Specimen Anatomical Collection Method Collection Time Receive d Time (Source) Location / / Volume Laterality Blood (Blood, 12/13/2018 10:57 12/13/2018 Venous) AM CDT 11:18 AM CDT Huseyin Bolton M.D., D.M.D. LAB BLOOD ADD-ON Performing Organization Address City/[facility] Code Phon e Number [facility] LABORATORIES - [address] [place] [phone] [facility] Bicarbonate (12/13/2018 10:57 AM CDT) P athologist Signature Bicarbonate, S 29 22 - 29 12/13/2018 [facility] mmol/L 12:00 PM CDT LABORATORIES - [facility] Specimen Anatomical Collection Method Collection Time Receive d Time (Source) Location / / Volume Laterality Blood (Blood, 12/13/2018 10:57 12/13/2018 Venous) AM CDT 11:18 AM CDT Huseyin Bolton M.D., Sarah LAB BLOOD ADD-ON Performing Organization Address City/State/[facility] Code Phon e Number [facility] LABORATORIES - [address] [place] [phone] [facility] documented in this encounter Visit Diagnoses Diagnosis Osteomyelitis Mandible documented in this encounter
--- OUTSIDE RECORDS SUMMARY | 2022-05-05 14:43 | XMS_ITS | Encounter Summary ---
:1965 Author Organization [facility] Address [address] [place] [address] Care Team Providers Name Role Phone Elsewhere, Pcp Primary Care Provider Unavailable Encounter Details Date Type Department Care Team Description 10/24/2001 Historical Ophthalmology RST OPH Quoc Frank M.D. 100 [facility], [facility] [address] [place] [address] (Wo rk) Social History Tobacco Use Types Packs/Day Years Used Date Smoking Tobacco: Never Assessed Sex Assigned at Date Recorded Female 12/22/2018 12:54 PM CDT documented as of this encounter Progress Notes Quoc Johnson M.D. 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 Treatment indication would be inflammatory lesion threatening the optic nerve. Discussed in detail with patient and . 2. Meridianal fold with flap tear, superanasal, right eye Recommend: no treatment in absence of symptoms in phakic patient CDM Reports - EYEGEN Id: [id number] Status: Fnl documented in this encounter Plan of Treatment Upcoming Encounters Date Type Specialty Care Team Description 05/12/2022 Appointment Radiology Jamel Terrazas APRN, C.NAmaraPAmara, D. N.P. [address] [place] [phone] (Wo rk) 05/12/2022 Appointment Oral and Maxillofacial Issac Woodawrd Surgery M.D., D.D.S. 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
--- OUTSIDE RECORDS SUMMARY | 2022-05-05 14:43 | XMS_ITS | Encounter Summary ---
:1965 Author Organization [facility] Address [address] [place] [address] Care Team Providers Name Role Phone Unavailable Primary Care Provider Unavailable Reason for Visit Reason Onset Date Comments OPAT Normal Labs 12/22/2018 Encounter Details Date Type Department Care Team Description 12/22/2018 Clinical Communication Section of Lakshmi Clifton OPAT Normal Labs Infectious Diseases M, R.N. in [place], [address] [place] [address] [place] [phone] [place], [place] [phone] (Work) [phone] Social History Tobacco Use Types Packs/Day Years Used Date Smoking Tobacco: Every Day Cigarettes 1 35 S tarted: 12/14/1984 Smokeless Tobacco: Never Alcohol Use Standard Drinks/Week Comments Yes 14 (1 standard drink = 0.6 oz pure alcoh ol) Sex Assigned at Date Recorded Female 12/22/2018 12:54 PM CDT documented as of this encounter Miscellaneous Notes Telephone Encounter - Lakshmi Clifton, R.N. - 12/22/2018 9:51 AM CDT OPAT NOTE Infusion Provider: [facility], phone: [phone] Antimicrobial(s) currently prescribed: See medication list in Epic. Tentative stop date: 01/25/2019; final stop date to be determined at follow up visit. Date of ID follow up appt: 12/27/2018. OPAT labs: were received by fax. 12/21/2018 WBC 5.8 ANC 3300 HGB 13.1 Platelets 274 ALT 68 (0-50) Creatinine 0.79 Patient's antibiotic therapy does not require drug level monitoring (see above). Interpretation and action: The labs were satisfactory and acceptable. No change in plan as per OPAT Practice Guideline. documented in this encounter Plan of Treatment Upcoming Encounters Date Type Specialty Care Team Description 05/12/2022 Appointment Radiology Jamel Terrazas APRN, C.N.P., D. N.P. [address] [place] [phone] (Wo rk) 05/12/2022 Appointment Oral and Maxillofacial Issac Woodward, Surgery Marlyn, D.D.S. [address] [place] [phone] (Wo rk) documented as of this encounter Visit Diagnoses Not on filedocumented in this encounter
--- OUTSIDE RECORDS SUMMARY | 2022-05-05 14:43 | XMS_ITS | Encounter Summary ---
:1965 Author Organization [facility] Address [address] [place] [address] Care Team Providers Name Role Phone Unavailable Primary Care Provider Unavailable Reason for Referral MRI/CAT/PET Scan (Routine) - Closed Specialty Diagnoses / Procedures Referred By Contact Refer red To Contact Radiology Diagnoses Osteomyelitis Mandible Huseyin Bolton M.D., ShadMCece. [facility] Procedures CT Maxillofacial with IV Contrast CT Neck Soft Tissue with IV Contrast ME CT NECK/SOFT TISS W CNTRST HC CT NECK/SOFT TISS W CNTRST ME CT NECK/SOFT TISS W CNTRST ME CT MAXFAC W CNTRST HC CT MAXFAC W CNTRST ME CT MAXFAC W CNTRST [address] [place] [phone] Referral ID Status Reason Start Date Expiration Date Visits Requ ested Visits Authorized [id number] Closed 12/11/2018 12/11/2019 1 1 Reason for Visit MRI/CAT/PET Scan (Routine) - Closed Specialty Diagnoses / Procedures Referred By Contact Refer red To Contact Radiology Diagnoses Osteomyelitis Mandible Huseyin Bolton M.D., ShadMCece. [facility] Procedures CT Maxillofacial with IV Contrast CT Neck Soft Tissue with IV Contrast ME CT NECK/SOFT TISS W CNTRST HC CT NECK/SOFT TISS W CNTRST ME CT NECK/SOFT TISS W CNTRST ME CT MAXFAC W CNTRST HC CT MAXFAC W CNTRST ME CT MAXFAC W CNTRST [address] [place] [phone] Referral ID Status Reason Start Date Expiration Date Visits Requ ested Visits Authorized [id number] Closed 12/11/2018 12/11/2019 1 1 Encounter Details Date Type Department Care Team Description 12/13/2018 Hospital Encounter Department of Huseyin Bolton Osteomye litis Mandible Radiology, Chintan Cline D.M.D. Building, in [address] [place] [address] [place] [phone] [place], [place] [phone] (Work) [phone] Social History Tobacco Use Types Packs/Day Years [...] - - Height 175.3 cm (5' 9) 12/13/2018 12:19 PM CDT Body Mass Index - - [...] Jamel Terrazas APRN, C.N.P., D. N.P. [address] [place] [phone] (Vasiliy ac) 05/12/2022 Appointment Oral and Maxillofacial Issac Woodward, Surgery MKayla, D.D.S. [address] [place] [phone] (Vasiliy rk) documented as of this encounter Procedures Procedure Name Priority Date/Time Associated Comments Diagnosis CT MAXILLOFACIAL RAD - Routine 12/13/2018 Osteomyelitis Results f or WITH IV CONTRAST (most inpatients 12:52 PM CDT Mandible this pr ocedure and all are in the outpatients) results section. documented in this encounter Results CT Maxillofacial with IV Contrast (12/13/2018 12:52 PM CDT) Anatomical Region Laterality Modality Jaw, Head, Neuroradiology RST LOS, Neuroradiology ARZ N/A Computed Tomography LOS, Neuroradiology FLA LOS Specimen (Source) Anatomical Collection Method Collection Time Re ceived Time Location / / Volume Laterality 12/13/2018 12:57 PM CDT Impressions 12/13/2018 1:40 PM CDT IMPRESSION: 1. Imaging findings most consistent with chronic osteomyelitis of the right mandible. Differential would include ost eoradionecrosis (if there is a history of prior radiation therapy) and bisphosp honate induced osteonecrosis (if there is appropriate clinical history). The ch anges are similar or progressed minimally since 08/11/2018. 2. Enlargement of the mandibular canal o n the right is of uncertain etiology or significance. Narrative 12/13/2018 1:40 PM CDT EXAM: CT MAXILLOFACIAL WITH IV CONTRAST COMPARISON: Neck CT 08/11/2018 FINDINGS: Chronic sclerosis, expansion, and periosteal thickening involving the ramus, angle, and proximal body of the m andible on the right is similar or only minimally progressed since CT 08/11/2018 . No periapical nerve root cysts. Expansion of the mandibular canal is of uncertain significance. Muscles of mastication look intact. No inflammatory changes within the surrounding soft tissues and no drainable fluid collectio ns. Mildly prominent right-sided level II lymphadenopathy looks reactive. Benig n torus mandibularis. Visualized brain parenchyma looks normal. Procedure Note Antonio Gagnon M.D. - 12/13/2018Formatt ing of this note might be different from the original. EXAM: CT MAXILLOFACIAL WITH IV CONTRAST COMPARISON: Neck CT 08/11/2018 FINDINGS: Chronic sclerosis, expansion, and periosteal thickening involving the ramus, angle, and proximal body of the m andible on the right is similar or only minimally progressed since CT 08/11/2018 . No periapical nerve root cysts. Expansion of the mandibular canal is of uncertain significance. Muscles of mastication look intact. No inflammatory changes within the surrounding soft tissues and no drainable fluid collectio ns. Mildly prominent right-sided level II lymphadenopathy looks reactive. Benig n torus mandibularis. Visualized brain parenchyma looks normal. IMPRESSION: 1. Imaging findings most consistent with chronic osteomyelitis of the right mandible. Differential would include ost eoradionecrosis (if there is a history of prior radiation therapy) and bisphosp honate induced osteonecrosis (if there is appropriate clinical history). The ch anges are similar or progressed minimally since 08/11/2018. 2. Enlargement of the mandibular canal o n the right is of uncertain etiology or significance. Huseyin Bolton M.D., D.M.D. IMG CT PROCEDURES documented in this encounter Visit Diagnoses Diagnosis Osteomyelitis Mandible documented in this encounter Administered Medications Inactive Administered Medications - up to 3 most recent administrations Medication Order MAR Action Action Date Dose Rate Site iohexol 300 mg iodine/mL solution Given 12/13/2018 12:42 PM CDT 100 mL 1-200 mL (OMNIPAQUE) 1-200 mL, intravenous, Once in imaging, contrast, Starting on Tue12/13/18 at 1219, For 1 dose, Imaging Protocol Orders, Dose per Radiant Medication Guidelines sodium chloride (PF) 0.9 % injection 1-1 00 mL Given 12/13/2018 12:42 PM CDT 35 mL 1-100 mL, intravenous, Once, On Tue12/13/18 at 1230, For 1 dose, Imaging Protocol Orders documented in this encounter
--- OUTSIDE RECORDS SUMMARY | 2022-05-05 14:43 | XMS_ITS | Encounter Summary ---
:1965 Author Organization [facility] Address [address] [place] [address] Care Team Providers Name Role Phone Unavailable Primary Care Provider Unavailable Reason for Referral Outpatient (Routine) - Closed Specialty Diagnoses / Procedures Referred By Contact Refer red To Contact Diagnoses Osteomyelitis Mandible Chronic Issac Woodward M.D., [facility] Ruma.Ruma.S. [address] [place] [phone] Referral ID Status Reason Start Date Expiration Date Visits Requ ested Visits Authorized [id number] Closed 12/14/2018 12/14/2019 1 1 Scheduling Instructions 12/27/18 SHELDON Woodward, coordinate time with IfD appt Outpatient (Routine) - Closed Specialty Diagnoses / Procedures Referred By Contact Refer red To Contact Infectious Diseases Diagnoses Osteomyelitis Mandible Chronic Issac Woodward [place] Danni Cline, D.D.S. [address] [place] [phone] Referral ID Status Reason Start Date Expiration Date Visits V isits Requested Authorized [id number] Closed Specialty 12/13/2018 12/13/2019 1 1 Services Required Scheduling Instructions 12/15/18 if possible Reason for Visit Appointment Request (Routine) - Closed Specialty Diagnoses / Procedures Referred By Contact Refer red To Contact Oral and Maxillofacial Rainer Rodriguez, Surgery [place] [address] [place] [address] Referral ID Status Reason Start Date Expiration Date Visits Requ ested Visits Authorized [id number] Closed 12/08/2018 12/08/2019 1 Encounter Details Date Type Department Care Team Description 12/13/2018 Hospital Encounter Division of Oral and [place], O steomyelitis Maxillofacial Surgery Issac Raymundo M.D., Ev[facility] [place] [address] [address] [facility] 200 [place] [phone] Social History Tobacco Use Types Packs/Day Years [...] per protocol. documented as of this encounter Consult Notes Issac Woodward M.D., D.D.S. - 12/13/2018 4:10 PM CDT Maxillofacial Surgery [...] have the above- mentioned procedure completed tomorrow [facility] under general anesthesia. Will plan to [...] answered. Electronically signed by: Issac Woodward M.D., D.DAmaraSAmara 12/13/18 4:14 PM Javad Luque M.D., D.MCece. - 12/13/2018 3:48 PM CDT SUPERVISING INFORMATION SCIENTIST: Issac Woodward DDS, MD. REASON FOR CONSULT Osteomyelitis right mandible. HISTORY OF PRESENT ILLNESS Mrs. Mcmullen is a 53-year-old female who is referred by a neurologist for MRI findings suggestive of osteomyelitis of the right mandible. In brief, she has been struggling with pain in the right mandible, which she believed was initiated from a carious right molar in the mandible, which was endodontically treated. This subsequently had persistent pain, and she has seen multiple providers over the past several years including family medicine, otolaryngology, her general dentist, braid maker, and neurologist at outside facilities, who have had a broad variety of working diagnoses. It was not until the neurologist obtained an MRI to investigate a possible neuropathic etiology, where it was noted that she had features of osteomyelitis in the right mandible. Since her initial dental procedure, she has had multiple teeth extracted, and she did describe initially that there was some pain, swelling, and suppuration, which was dealt with locally from her general dentist. Since then, there has been mild swelling but persistent daily pain in the right mandible without extension into the neck. MEDICAL/SURGICAL HISTORY: History of endometrial adenocarcinoma, status post DEANA/BSO. Depression. Laparoscopic cholecystectomy. Bilateral tubal ligation. She states that she has only had her wisdom teeth out as her only other surgery. OBJECTIVE PHYSICAL EXAMINATION General: AAO, NAD, pleasant demeanor. Head and Neck : Skin is intact. Normocephalic. No signs of any extraoral swelling. Tenderness along the inferior border of the mandible and over the masseteric insertion of the mandible. Intraoral exam: Hypertrophic tissue along the retromolar trigone and edentulous ridge of the right posterior mandible. No areas of exposed bone, suppuration, or fluctuance. Teeth in the vicinity are not tender to percussion and palpation or pathologically mobile. No mucosal ulceration or lesion throughout the entireoral cavity. Occlusion stable, reproducible. ASSESSMENT / PLAN #1 Chronic osteomyelitis of the right mandible #2 History of adenocarcinoma of the endometrium, status post DEANA and BSO Mrs. Mcmullen was just consulted by the service of Dr. Issac Woodward regarding symptoms of pain and swelling for almost 4 years in the right hemimandible. Radiographic evidence suggests that this is osteomyelitis, in addition to the patient's history and clinical exam. We have agreed, with the patient's consent, to take her to the operating room tomorrow for exploration, debridement, and cultures of this region. We will also admit her so that she can see Infectious Diseases at the same point in timeand possibly get set up for IV antibiotics if this is indeed osteomyelitis. We will hold antibiotic treatment until we obtain cultures and initiate broad-spectrum antibiotics at the recommendations of I nfectious Diseases. Aside from this, she denies any complications, specifically bleeding complications, from her total abdominal hysterectomy, and there are no additional preoperative considerations prior to this procedure. documented in this encounter Miscellaneous Notes Addendum Note - Jayla Vargas L.D.A. - 12/13/2018 4:14 PM CDTEncounter addended by: Jayla Vargas L.D.A. on: 12/14/2018 3:19 PM
Actions taken: Order list changed, Diagnosis association updated documented in this encounter Plan of Treatment Upcoming Encounters Date Type Specialty Care Team Description 05/12/2022 Appointment Radiology Jamel Terrazas APRN, C.N.P., D. N.P. [address] [place] [phone] (Wo rk) 05/12/2022 Appointment Oral and Maxillofacial Issac Woodward, Surgery [place], D.D.S. [address] [place] [phone] (Wo rk) Scheduled Referrals Name Type Priority Associated Diagnoses Order S chedule Infectious Disease - Outpatient Routine Osteomyelitis Expect ed: General consult Referral Mandible Chronic 12/14/19 19 (clinic) (Approximate), Expires: 12/13/2021 Oral and Outpatient Routine Osteomyelitis Expected: Maxillofacial Surgery Referral Mandible Chronic Post Op (clinic) (Approximat e), Expires: 12/14/2021 documented as of this encounter Visit Diagnoses Diagnosis Osteomyelitis Mandible Chronic - Primary documented in this encounter
--- OUTSIDE RECORDS SUMMARY | 2022-05-05 14:43 | XMS_ITS | Encounter Summary ---
:1965 Author Organization [facility] Address [address] [place] [address] Care Team Providers Name Role Phone Unavailable Primary Care Provider Unavailable Encounter Details Date Type Department Care Team Description 12/15/2018 Clinical Communication Division of Oral and Lily Alvarado Maxillofacial Surgery [place] C.N.P., M.S. [address] [place] [address] [place] [phone] [place], [place] [phone] Social History Tobacco Use Types Packs/Day Years [...] Terrazas APRN, C.N.P., D. N.P. [address] [place] [phone] (Wo rk) 05/12/2022 Appointment Oral and Maxillofacial Issac Woodward Surgery M.D., D.D.S. [address] [place] [phone] (Wo rk) documented as of this encounter Visit Diagnoses Not on filedocumented in this encounter
--- OUTSIDE RECORDS SUMMARY | 2022-05-05 14:43 | XMS_ITS | Encounter Summary ---
:1965 Author Organization [facility] Address [address] [place] [address] Care Team Providers Name Role Phone Unavailable Primary Care Provider Unavailable Reason for Referral Outpatient (Routine) - Closed Specialty Diagnoses / Procedures Referred By Contact Refer red To Contact Infectious Diseases Diagnoses [facility] [address] [place] [phone] Referral ID Status Reason Start Date Expiration Date Visits Requ ested Visits Authorized [id number] Closed 12/15/2018 12/15/2019 1 1 Encounter Details Date Type Department Care Team Description 12/15/2018 Clinical Communication [facility] Tricia Rose, [address] [facility] Marlyn V[place], [place] [address] [place] [phone] [place] [phone] Social History Tobacco Use Types Packs/Day Years Used Date Smoking Tobacco: Every Day Cigarettes 1 35 S tarted: 12/14/1984 Smokeless Tobacco: Never Alcohol Use Standard Drinks/Week Comments Yes 14 (1 standard drink = 0.6 oz pure alcoh ol) Sex Assigned at Date Recorded Female 12/22/2018 12:54 PM CDT documented as of this encounter Miscellaneous Notes Telephone Encounter - Cira Huertas - 12/15/2018 8:29 AM CDT I have entered the post hospital recommendations and the OPAT weekly labs. Please sign the orders. Thank you. documented in this encounter Plan of Treatment Upcoming Encounters Date Type Specialty Care Team Description 05/12/2022 Appointment Radiology Jamel Terrazas APRN, C.N.PAmara, D. N.P. [address] [place] [phone] (Wo rk) 05/12/2022 Appointment Oral and Maxillofacial Issac Woodward, Surgery [place], D.D.S. [address] [place] [address] (Wo rk) Scheduled Referrals Name Type Priority Associated Diagnoses Order S chedule Infectious Diseases Outpatient Referral Routine Osteomyelitis Mandible Expected: office visit 12/22/2018 (clinic) (Approximate), Expires: 12/15/2021 documented as of this encounter Visit Diagnoses Diagnosis Osteomyelitis Mandible - Primary documented in this encounter
--- OUTSIDE RECORDS SUMMARY | 2022-05-05 14:43 | XMS_ITS | Encounter Summary ---
:1965 Author Organization [facility] Address [address] [place] [address] Care Team Providers Name Role Phone Unavailable Primary Care Provider Unavailable Reason for Visit Auth/Cert Specialty Diagnoses / Procedures Referred By Contact Refer red To Contact Diagnoses Osteomyelitis Mandible Chronic Procedures MO BX BN OPN SUPFCL EXPLORATION INCISION~right mandible BIOPSY MANDIBLE~cultures right mandible M27.2 (ICD-10-CM) - Osteomyelitis Mandible Chronic Referral ID Status Reason Start Date Expiration Date Visits Requ ested Visits Authorized [id number] 1 1 Encounter Details Date Type Department Care Team Description 12/14/2018 - Hospital Encounter [facility] Crissy, Osteomyel itis Mandible (Primary Dx); [facility]elit is Mandible Chronic [facility], [address] [place] [address] Fourth [place], [place] [address] [place] [phone] [place], [place] [phone] (Work) [phone] Social History Tobacco Use Types Packs/Day Years [...] Sign Reading Time Taken Comments Blood Pressure 137/87 12/15/2018 2:59 PM CDT Pulse 77 12/15/2018 2:59 PM CDT Temperature 36.7 ??C (98.06 ??F) 12/15/2018 2:59 PM CDT Respiratory Rate 16 12/15/2018 2:59 PM CDT Oxygen Saturation 95% 12/15/2018 2:59 PM CDT Inhaled Oxygen Concentration - - Weight 77.9 kg (171 lb 11.8 oz) 12/14/2018 1:00 PM CDT Height 175.3 cm (5' 9) 12/14/2018 1:00 PM CDT Body Mass Index 25.36 12/14/2018 1:00 PM CDT documented in this encounter Discharge Summaries Serina Doll P.A.-C. M.S. - 12/15/2018 1:07 PM CDT DISCHARGE SUMMARY BRIEF OVERVIEW Discharge Provider: Isasc Woodward M.D. No primary care provider on [...] Case IDs Date Procedure Surgeon Location Status [id number] 12/14/18 EXPLORATION Right Posterior Mandible. Issac Woodward M.D., D.D.S. [facility] [6] ACTIVE ISSUES REQUIRING FOLLOW UP Infectious [...] monitoring. These lab should be sent to [phone]. ANTIBIOTIC THERAPY: To treat the infection in [...] antibiotics. INFUSION COMPANY AND HOME HEALTH AGENCY: [facility] Address: [address] [place] [address] [place] [address] Orders for Infusion Center/Home Health Care for PICC Site care and weekly lab draws: 1. Flush PICC line per agency protocol. 2. PICC site care per agency protocol. 3. Weekly lab draws on Tuesday or Tuesday each week. Fax results to Infectious Diseases Outpatient Monitoring at [phone]. 4. Weekly labs to include: CBC with [...] was taken to general nursing floor in [facility], [place] where the hospitalization continued uneventfully. She was [...] Home later today Please contact OMS at [phone] with questions or concerns. Associated attestation - Issac Woodward M.D., D.D.S. - 12/18/2018 7:06 AM CDT I saw and evaluated the patient, participating in the franco portions of the service. I reviewed the resident/fellow???s note. I agree with the resident/fellow???s findings and plan. Electronically signed by: Issac Woodward M.D., D.D.S. 12/18/18 7:06 AM [facility] - 12/15/2018 6:15 AM CDT [...] patient. Please contact the Infectious Disease team ([phone]) with any questions or concerns. INFECTIOUS DISEASES [...] of Infectious Diseases OPAT monitoring program at [phone] after dismissal. Primary service to follow labs [...] have the above- mentioned procedure completed tomorrow [facility] under general anesthesia. Will plan to [...] answered. Electronically signed by: Issac Woodward M.D., D.D.S. 12/13/18 4:14 PM documented in this encounter [...] the patient and/or decision maker.: Not addressed [place] protocol: All relevant documentation and testing were [...] this encounter Consult Notes Amy Cheatham L.I.C.S.W., M.S.Zoraida. - 12/15/2018 12:19 PM CDTAssociated Order(s): IP CONSULT TO CARE MANAGEMENT; IP CONSULT TO CARE MANAGEMENT Psychosocial Assessment SUBJECTIVE DEMOGRAPHIC INFORMATION Referral Source: [facility]PA Referral Reason: Discharge Planning Discharge Planning: IV antibiotics Person(s) present during interview: Patient, Spouse Primary care clinic and provider: [facility] / Dr. Mariam Rust Primary Language: South Korean Superintendent Service Services Used: No Legal Information: Legal Decision [...] with 1 brother and 2 sisters in [place]. Marital Status / Family / Household Status: She is with 3 kids and 10 grandchildren. She doesn't have a relationship with her oldest son's family. However her daughter Davi and Myesha they have a good relationship with. Davi resides [facility] and Myesha lives in [place]. Support Systems: Spouse, Family members, Children. We have received permission to contact them. Primary caregiver: Self Spirituality / Zoroastrianism / Culture: The patient is not spiritual or latter day. History: None. Employment: Currently Employed, she works [...] Communication: Can write, Talks, Understands speaking, Understands South Korean It is anticipated that the patient will need assistance with None. ASSISTIVE DEVICES Patient has the following equipment: CPAP Patient anticipates potentially needing the following additional equipment: None TRANSITIONS MANAGER RN Formal and Informal Resources: The patient denied having any formal services. Her informal support is through her , children, and grandchildren. Caregiver Name: None FINANCES/INSURANCE Primary insurance: [employer] OPEN ACCESS Secondary insurance: N/A Income Information Does [...] with state of illness?: No Fear of intermediate/extended hospitalization?: No Coping with recent loss/disruption in [...] relief. She expressed appreciation the timeliness of Davis's responding to getting her into a doctor [...] building. 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 Individuals have been identified who are willing and able to learn the infusion technique. Dialysis/Infusion - Selection Complete Service Request Status Selected Specialties Address Phone Number Fax Number [facility] Selected Infusion Therapy [address], [place] [address] Contact: Intake NURSING: - Adjust the [...] Specialties Address Phone Number Fax Number Kimberly Samaniego [facility]fusion [facility] [address] [phone] (don't need a report from nursing) [phone] Contact: Intake (don't need report from nursing [...] SERVICE: - Please provide an order for: mcfp care, PICC site care and lab draws [...] the transition of care/plan: None identified. Patel Benavides M.SIoana 12/15/2018 Jem Walker M.D. - 12/14/2018 4:08 PM CDT DEMOGRAPHIC INFORMATION Clinic Number:[id number] Patient Name: Paola Mcmullen Age: 53 y.o. Birthdate: 1965 Sex: female Service: [place] Infectious Disease Consultation Service Note Type: Supervisory [...] are currently pending. Cultures are also pending. Patientwifidelina need prolonged antibiotic therapy with. This is [...] further questions or concerns arise. Please page [phone] for questions. DIAGNOSES #1 Osteomyelitis Mandible Chronic [...] year old from [facility] [address] who was admitted to [facility] on 12/14/2018 to the [facility] community health advisor - Crissy for chronic osteomyelitis of the [...] area was washout, no purulence/abscess was encountered. Director Oracle of the procedure is pending. Currently she [...] removed. She was then referred to an cfd engineer who performed a root canal without improvement [...] The patient was then referred to our [facility] colleagues. The patient denies any previous radiation [...] - Date/Time Bacterial Culture, Anaerobic + Susc [[id number]] Collected: 12/14/18808 Lab Status: In process Specimen: Tissue from Mandible Updated: 12/14/18917 Fungal Culture, Routine [[id number]] Collected: 12/14/18808 Lab Status: In process Specimen: Tissue from Mandible Updated: 12/14/18917 Gram Stain [[id number]] Collected: 12/14/18808 Lab Status: Final result Specimen: Tissue from Mandible Updated: 12/14/18946 Gram Stain No organisms seen. Acid Fast Smear For Mycobacterium [[id number]] Collected: 12/14/18808 Lab Status: In process Specimen: Tissue from Mandible Updated: 12/14/18917 Fungal Smear [[id number]] Collected: 12/14/18808 Lab Status: In process Specimen: Tissue from Mandible Updated: 12/14/18917 Mycobacterial Culture [[id number]] Collected: 12/14/18808 Lab Status: In process Specimen: Tissue from Mandible Updated: 12/14/18917 Actinomyces Culture [[id number]] Collected: 12/14/18808 Lab Status: In process Specimen: Tissue from Mandible Updated: 12/14/18917 Bacterial Culture, Aerobic + Susc [[id number]] Collected: 12/14/18808 Lab Status: In process Specimen: [...] patient. Please contact the Infectious Disease team ([phone]) with any questions or concerns. Asher Garcia [...] Note - Issac Woodward M.D., D.D.S. - 12/14/2018 8:26 AM CDT PROCEDURE(S) Surgical exploration, right posterior mandible. Bone biopsy and bone culture, right posterior mandible. SURGEON(S) PRIMARY SURGEON: Issac Woodward M.D., Martinez.S. RESIDENT ASSISTING: Darnell Willams D.D.S., M.S. ANESTHESIA TYPE General anesthesia. PRE-OPERATIVE DIAGNOSIS Right posterior mandibular osteomyelitis. POST-OPERATIVE DIAGNOSIS Right posterior mandibular osteomyelitis. COMPLICATIONS None. DESCRIPTION OF PROCEDURE The patient was brought to operating room 407 at [facility] and was placed on the surgicalbed in [...] diagnosis. TPR: [address] Job ID: [id number] Brief Op Note - Darnell Willams D.D.S., M.S. - 12/14/2018 8:26 AM CDT BRIEF OP NOTE Procedure(s) (LRB): EXPLORATION Right Posterior Mandible. (Right) BIOPSY and Bone Culture Right Mandible. (Right) Surgeon(s) and Role: * Issac Woodward M.D., Ruma.D.S. - Primary * Darnell Willams D.D.S., M.S. - Calf Skinner Anesthesia Type: General Pre-Operative Diagnosis: Osteomyelitis Mandible Chronic [M27.2]. Brief Operative Note Details Specimens ID Type Source Tests Collected by Time 1 : Right posterior mandible biopsy Tissue Mandible BACTERIAL CULTURE, ANAEROBIC + SUSC, FUNGAL CULTURE, ROUTINE, GRAM STAIN, ACID FAST SMEAR FOR MYCOBACTERIUM, FUNGAL SMEAR, MYCOBACTERIAL CULTURE, V, ACTINOMYCES CULTURE, BACTERIAL CULTURE, AEROBIC + SUSC Issac Woodward M.D., D.D.S. 12/14/2018 0809 A : Right posterior mandible biopsy Tissue Mandible SURGICAL PATHOLOGY, [facility] Issac Woodward M.D., ShadD.S. 12/14/2018 0808 Drains * No drains in log * Estimated Blood Loss No blood loss documented. Implants * No implants in log * Darnell Willams D.D.S., M.S. documented in this encounter Miscellaneous Notes Hospital Course - Mariah Lopez APRN, C.N.P., M.S. - 12/15/2018 12:16 PM CDT Paola [...] was taken to general nursing floor in [facility], [place] where the hospitalization continued uneventfully. She was discharged tolerating oral intake with pain well controlled on oral medication, ambulating independently, and voiding spontaneously. Paola Mcmullen is returning home and received appropriate instruction and materials for ongoingcare. documented in this encounter Plan of Treatment Upcoming Encounters Date Type Specialty Care Team Description 05/12/2022 Appointment Radiology Jamel Terrazas APRN, C.N.P., D. N.P. [address] [place] [phone] (Wo rk) 05/12/2022 Appointment Oral and Maxillofacial Issac Woodward, Surgery MKayla, D.D.S. [address] [place] [address] (Wo rk) documented as of this encounter [...] the patient and/or decision maker.: ??Not addressed [place] protocol: ??All relevant documentation and testin g [...] no apparent complicati ons ?? Serina Doll P.A.-C., M.S. PROCEDURE/MINOR SURGICAL OR DERABLES Performing Organization Address City/State/ZIP Code Phon e Number MMODAL MMODAL NA HIV-1/-2 Ag and Ab Screen, Plasma - RST/[place] (12/14/2018 3:26 PM CDT) athologist Signature HIV-1/-2 Ag Negative Negative 12/14/2018 [facility] and Ab Screen, 9:[address] [facility] Comment: Negative result does not rule out [...] City/State/ZIP Code Phon e Number [facility] [address] [place] [address] [facility] Sedimentation Rate (12/14/2018 1:25 PM CDT) Patholo gist Method Time Signature Sedimentation 4 0 - 29 12/14/2018 [facility] Rate, B mm/1 h 3:06 PM CDT LABORATORIES - [facility] Specimen Anatomical Collection Method Collection Time Receive d Time (Source) Location / / Volume Laterality Blood (Blood, 12/14/2018 1:25 PM 12/15/19 19 1:46 Venous) CDT PM CDT Serina Doll P.A.-C., M.S. LAB BLOOD ADD-ON Performing Organization Address City/[facility] Phon e Number [facility] LABORATORIES - [address] [place] [address] [facility] CRP (C-Reactive Protein) (12/14/2018 1:25 PM CDT) P athologist Signature C-Reactive <3.0 <=8.0 mg/L 12/14/2018 [facility] Protein (CRP), 2:28 PM CDT LABORATORIES - S [facility] Specimen Anatomical Collection Method Collection Time Receive d Time (Source) Location / / Volume Laterality Blood (Blood, 12/14/2018 1:25 PM 12/15/19 19 1:46 Venous) CDT PM CDT Serina Doll P.A.-C., M.S. LAB BLOOD ADD-ON Performing Organization Address City/[facility] Code Phon e Number [facility] LABORATORIES - [address] [place], [place] [address] [facility] Basic Metabolic Panel (12/14/2018 1:25 PM CDT) Analysis Performed At Patho logist Time Signature Potassium, S 4.2 3.6 - 5.2 12/14/2018 [facility] mmol/L 2:28 PM CDT LABORATORIES - [facility] Sodium, S 142 135 - 145 12/14/2018 [facility] mmol/L 2:28 PM CDT LABORATORIES - [facility] Chloride, S 105 98 - 107 12/14/2018 [facility] mmol/L 2:28 PM CDT LABORATORIES - [facility] Bicarbonate, S 24 22 - 29 12/14/2018 [facility] mmol/L 2:28 PM CDT LABORATORIES - [facility] Anion Gap 13 7 - 15 12/14/2018 [facility] 2:28 PM CDT LABORATORIES [facility] BUN (Blood Urea 12 6 - 21 12/14/2018 [facility] Nitrogen), S mg/dL 2:28 PM CDT LABORATORIES [facility] Creatinine 0.80 0.59 - 12/14/2018 [facility] 1.04 mg/dL 2:28 PM CDT LABORATORIES [facility] eGFR-Non 83 >=60 12/14/2018 [facility] Black/ mL/min/BSA 2:28 PM CDT LABORATORIES - [facility] Comment: ----ADDITIONAL INFORMATION---- Estimated GFR calculated using the 2009 CKD_EPI creatinine equation. eGFR-Black/ >90 >=60 mL/min/BSA 12/14/2018 2:28 [facility] CDT LABORATORIES [facility] Comment: ----ADDITIONAL INFORMATION---- Estimated GFR calculated using the 2009 CKD_EPI creatinine equation. Calcium, Total, S 9.3 8.6 - 10.0 mg/dL 12/14/2018 2:28 PM [facility] CDT LABORATORIES [facility] S Glucose, S 124 70 - 140 mg/dL 12/14/2018 2:28 PM [facility] CDT LABORATORIES [facility] S Specimen Anatomical Collection Method Collection Time Receive d Time (Source) Location / / Volume Laterality Blood (Blood, 12/14/2018 1:25 PM 12/15/19 19 1:46 Venous) CDT PM CDT Serina Doll P.A.-C., M.S. LAB BLOOD ADD-ON Performing Organization Address City/State/ZIP Code Phon e Number [facility] LABORATORIES - [address] [place] [address] [facility] (ABNORMAL) CBC with Differential, Blood (12/14/2018 1:25 PM CDT) [facility] Method Time Signature Hemoglobin 13.2 11.6 - 12/14/2018 [facility] 15.0 g/dL 2:00 PM CDT LABORATORIES [facility] Hematocrit 39.8 35.5 - 12/14/2018 [facility] 44.9 % 2:00 PM CDT LABORATORIES [facility] Erythrocytes 4.22 3.92 - 12/14/2018 [facility] 5.13 2:00 PM CDT LABORATORIES - x10(12)/L [facility] MCV 94.3 78.2 - 12/14/2018 [facility] 97.9 fL 2:00 PM CDT LABORATORIES - [facility] RBC Distrib 12.8 12.2 - 12/14/2018 [facility] Width 16.1 % 2:00 PM CDT LABORATORIES - [facility] Platelet Count 222 157 - 371 12/14/2018 [facility] x10(9)/L 2:00 PM CDT LABORATORIES - [facility] Leukocytes 6.7 3.4 - 9.6 12/14/2018 [facility] x10(9)/L 2:00 PM CDT LABORATORIES - [facility] Neutrophils 5.91 1.56 - 12/14/2018 [facility] 6.45 2:00 PM CDT LABORATORIES - x10(9)/L [facility] Lymphocytes 0.63 (L) 0.95 - 12/14/2018 [facility] 3.07 2:00 PM CDT LABORATORIES - x10(9)/L [facility] Monocytes 0.13 (L) 0.26 - 12/14/2018 [facility] 0.81 2:00 PM CDT LABORATORIES - x10(9)/L [facility] Eosinophils <0.03 0.03 - 12/14/2018 [facility] 0.48 2:00 PM CDT LABORATORIES - x10(9)/L [facility] Basophils <0.03 0.01 - 12/14/2018 [facility] 0.08 2:00 PM CDT LABORATORIES - x10(9)/L [facility] Specimen Anatomical Collection Method Collection Time Receive d Time (Source) Location / / Volume Laterality Blood (Blood, 12/14/2018 1:25 PM 12/15/19 19 1:46 Venous) CDT PM CDT Serina Doll P.A.-C., M.S. LAB BLOOD ADD-ON Performing Organization Address City/State/ZIP Code Phon e Number [facility] LABORATORIES - [address] [place], [place] [address] [facility] Hepatic Function Panel (12/14/2018 1:22 PM CDT) [facility] Method Time Signature Bilirubin, Total, S 0.3 <=1.2 12/14/2018 [facility] mg/dL 3:33 PM CDT LABORATORIES - [facility] Bilirubin, Direct, S <0.2 0.0 - 0.3 12/14/2018 [facility] mg/dL 3:33 PM CDT LABORATORIES - [facility] Aspartate 39 8 - 43 12/14/2018 [facility] Aminotransferase U/L 3:33 PM CDT LABORATORIE S - (AST), S [facility] Alanine 39 7 - 45 12/14/2018 [facility] Aminotransferase U/L 3:33 PM CDT LABORATORIE S - (ALT), S [facility] Alkaline 52 35 - 104 12/14/2018 [facility] Phosphatase, S U/L 3:33 PM CDT LABORATORIES - [facility] Albumin, S 4.5 3.5 - 5.0 12/14/2018 [facility] g/dL 3:33 PM CDT LABORATORIES - [facility] Protein, Total, S 6.3 6.3 - 7.9 12/14/2018 [facility] g/dL 3:33 PM CDT LABORATORIES - [facility] Specimen Anatomical Collection Method Collection Time Receive d Time (Source) Location / / Volume Laterality Blood (Blood, 12/14/2018 1:22 PM 12/15/19 19 3:02 Venous) CDT PM CDT Serina Doll P.A.-C., M.S. LAB BLOOD ADD-ON Performing Organization Address City/State/ZIP Code Phon e Number [facility] LABORATORIES - [address] [place] [address] [facility] (ABNORMAL) Bacterial Culture, Aerobic + Susc (12/14/2018 8:09 AM CDT) Component Value Ref Test Analysis Performed At [facility] gist Range Method Time Signature Bacterial Susceptibilities requested by phone. 09/2018 [facility] Culture, There are no established interpretive guidelines for agent s 2:28 PM LABORATORIES - Aerobic + reported without interpretations. CDT [facility] Bacterial STREPTOCOCCUS MITIS GROUP, NOT S. PNEUMONIAE 12/21/2018 [facility] Culture, 2+ 2:28 PM LABORATORIES - Aerobic + - CDT [facility] Comment: Additional Report Bacterial Culture, ROTHIA MUCILAGINOSA 12/21/2018 2:28 PM [facility] Aerobic + Susc 1+ CDT LABORATORIES - Unable to perform susceptibility testing. ??Organism [facility] did not grow on test medium. [facility] (A) Comment: Additional Report Bacterial Culture, HAEMOPHILUS HAEMOLYTICUS 2018 2:28 PM [facility] Aerobic + Susc 1+ CDT LABORATORIES - Beta lactamase negative. [facility] (A) Comment: Additional Report Specimen (Source) Anatomical [...] haemolyticus Sulfamethoxazole MANNIE (MCG/ML) Issac Woodward M.D., D.D.SAmara LAB MICROBIOLOGY - GENERA L ORDERABLES Performing Organization Address City/[facility]/ZIP Code Phon e Number [facility] LABORATORIES - [address] Actinomyces Culture (12/14/2018 8:09 AM CDT) [employer] Method Time Signature Actinomyces No growth 12/28/2018 [facility] Culture after 14 9:39 AM CDT LABORATORIES - days of [facility] . Specimen (Source) Anatomical Collection Method Collection Time Re ceived Time Location / / Volume Laterality Tissue (Mandible) 12/14/2018 8:09 AM CDT Issac Woodward M.D., D.D.SAmara LAB MICROBIOLOGY - GENERA L ORDERABLES Performing Organization Address [facility] Phon e Number [facility] LABORATORIES - [address] Mycobacterial Culture (12/14/2018 8:09 AM CDT) Patholo gist Method Time Signature Mycobacterial No growth 01/25/2019 Culture after 42 1:01 PM CDT days of incubation . Specimen (Source) Anatomical Collection Method Collection Time Re ceived Time Location / / Volume Laterality Tissue (Mandible) 12/14/2018 8:09 AM CDT Issac Woodward M.D., D.D.S. LAB MICROBIOLOGY - GENERA L ORDERABLES Performing Organization Address City/[facility] Code Phon e Number [facility] LABORATORIES - [address] [place] [address] [facility] Fungal Smear (12/14/2018 8:09 AM CDT) [facility] gist Method Time Signature Fungal Smear Negative. 12/14/2018 [facility] 1:31 PM CDT [facility] Specimen (Source) Anatomical Collection Method Collection Time Re ceived Time Location / / Volume Laterality Tissue (Mandible) 12/14/2018 8:09 AM CDT Issac Woodward M.D., D.D.S. LAB MICROBIOLOGY - GENERA L ORDERABLES Performing Organization Address City/[facility] Code Phon e Number [facility] LABORATORIES - [address] [place] [address] [facility] Acid Fast Smear For Mycobacterium (12/14/2018 8:09 AM CDT) [facility] gist Method Time Signature Acid Fast Smear Negative. 12/14/2018 [facility] For Mycobacterium 5:47 PM CDT LABORATORI ES - [facility] Specimen (Source) Anatomical Collection Method Collection Time Re ceived Time Location / / Volume Laterality Tissue (Mandible) 12/14/2018 8:09 AM CDT Issac Woodward M.D., D.D.S. LAB MICROBIOLOGY - GENERA L ORDERABLES Performing Organization Address City/[facility] Phon e Number [facility] LABORATORIES - [address] [place] [address] 05 [facility] CORPORATION Gram Stain (12/14/2018 8:09 AM CDT) [facility] gist Method Time Signature Gram Stain No organisms 12/14/2018 [facility] seen. 9:47 AM CDT [facility] Specimen (Source) Anatomical Collection Method Collection Time Re ceived Time Location / / Volume Laterality Tissue (Mandible) 12/14/2018 8:09 AM CDT Issacmaria antonia Woodward M.D., D.D.S. LAB MICROBIOLOGY - GENERA L ORDERABLES Performing Organization Address City/[facility]/ZIP Code Phon e Number [facility] LABORATORIES - [address] [address] [facility] Fungal Culture, Routine (12/14/2018 8:09 AM CDT) [facility] Method Time Signature Fungal No growth 01/07/2019 [facility] Culture, after 24 1:01 PM CDT LABORATORIES - Routine days of [facility] . Specimen (Source) Anatomical Collection Method Collection Time Re ceived Time Location / / Volume Laterality Tissue (Mandible) 12/14/2018 8:09 AM CDT Issac Woodward M.D., D.D.S. LAB MICROBIOLOGY - GENERA L ORDERABLES Performing Organization Address City/[facility]/ZIP Code Phon e Number [facility]ORATORIES - [address] [address] [facility] (ABNORMAL) Bacterial Culture, Anaerobic + Susc (12/14/2018 8:09 AM CDT) [facility] Method Time Signature Bacterial Mixed Irish, 12/18/2018 [facility] Culture, anaerobes 3:17 PM CDT LABORATORIES - Anaerobic + present, not [facility] further [facility] identified. (A) Specimen (Source) Anatomical Collection Method Collection Time Re ceived Time Location / / Volume Laterality Tissue (Mandible) 12/14/2018 8:09 AM CDT Issac Woodward M.D., D.D.S. LAB MICROBIOLOGY - GENERA L ORDERABLES Performing Organization Address City/[facility]/ZIP Code Phon e Number [facility]IES - [address] [address] [facility] Surgical Pathology, Frozen Lab (12/14/2018 8:08 AM CDT) Component Value Ref Test Analysis Performed At [facility] Method Time Signature Gross Description A. ??Received fresh labeled right posterior martita ible 12/18/2018 [facility] biopsy is a 1 x 0.8 x 0.2 cm aggregate of red bone 9:05 AM CDT LABORATORIES - fragments. ??All submitted for permanent sections, following [facility] decalcification. ??Grossed by [facility] CAMPUS Report Mike Reyes M.D. [phone] 12/18/2018 [facility] electronically I verify that I have examined all relevant slides/ma terials 9:05 AM CDT LABORATORIES - signed by for the specimen(s) and rendered or confirmed the diagnosi s. [facility] 12/18/2018 [facility] 9:05 AM CDT LABORATORIES - [facility] Block Summary A Right posterior mandible biopsy [facility] A1 Right posterior mandible biopsy 9:05 AM CDT LABORATORIES - [facility] Interpretation FINAL DIAGNOSIS 12/18/2018 [facility] A. 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 [facility] Specimen (Source) Anatomical Collection Method Collection Time Re ceived Time Location / / Volume Laterality Tissue (Mandible) 12/14/2018 8:08 AM CDT Narrative This result has an attachment that is no t available. Issac Woodward M.D., D.D.SAmara LAB SURG PATH ORDERABLES Performing Organization Address City/State/ZIP Code Phon e Number [facility] LABORATORIES - [address] documented in this encounter Visit Diagnoses Diagnosis Osteomyelitis Mandible Chronic - Primary Osteomyelitis Mandible Hypertension Essential Primary Obstructive Sleep Apnea Adult Alcohol Use Unspecified With Unspecified Alcohol Induced Disorder (HCC) documented in this encounter Admitting Diagnoses Diagnosis [...] Given 12/14/2018 9:05 PM CDT 300 mg cefTRIAXone in dextrose (iso-osm) IVPB New Bag 12/14/2018 3:38 PM CDT 2 g 200 mL/hr 2 g (ROCEPHIN) 2 g, intravenous, at 200 mL/hr, Administer over 15 Minutes, Every 24 hours, First dose on Tue12/14/18 at 1515, premix bag, Drug Monitoring Program: Pharmacist to adjust medication dosing based on indication and drug clearance factors., Indications: Bone and/or joint infection D5W infusion 10-250 mL/hr, intravenous, As needed, [...] Use 100 mL bag then disca rd. dexamethasone injection 8 mg (DECADRON) Given 12/14/2018 2:24 PM CDT 8 mg 8 mg, intravenous, Every 8 hours, First dose on Bernie 12/14/18 at 1515, For 5 doses, Start 8 hours after intra-operative dose given. enoxaparin injection 40 mg Given 12/15/2018 8:43 [...] factors., Indications: Head, neck, and ENT infection fentaNYL injection 25 mcg (SUBLIMAZE) Given 12/14/2018 10:34 AM CDT 25 mcg 25 mcg, intravenous, Every 2 min PRN, moderate pain or score 4-6 of 10, severe pain or score 7-10 of 10, Starting on Bernie 12/14/18 at 0918, PACU (only), Up to maximum total dose of 200 mcg Given 12/14/2018 10:10 AM CDT 25 mcg Given 12/14/2018 9:41 AM CDT 25 mcg ketorolac injection 15 mg (TORADOL) Given 12/15/2018 11:39 AM CDT 15 mg 15 mg, intravenous, Every 6 hours scheduled, First dose on Bernie 12/14/18 at 1800, For 8 doses, Adult IV push rate: Over 15 seconds. Peds IV push rate: Over 1 minute. 60 mg dose only for IM, not recommended for IV. Given 12/15/2018 6:25 AM CDT 15 mg Given 12/15/2018 12:55 AM CDT 15 mg labetalol injection 10 mg Given 12/14/2018 10:46 AM CDT 10 mg (NORMODYNE,TRANDATE) 10 mg, intravenous, Once as needed, high blood pressure, per provider instructions, Starting on Bernie 12/14/18 at 1046, For 1 dose, Follow institution's IV administration guidelines lactated ringers Continued from OR 12/14/2018 9:20 AM CDT 20 mL/hr 20 mL/hr 20 mL/hr, intravenous, Continuous, Starting on Bernie 12/14/18 at 0930, PACU & Post-Op lisinopril tablet 10 mg (PRINIVIL,ZESTRI L) Given 12/15/2018 8:43 AM CDT 10 mg 10 mg, oral, Daily, First dose (after last modification) on Bernie 12/14/18 at 1500 Given 12/14/2018 3:01 PM CDT [...] Every 1 hour PRN, withdrawal, Starting on Bernie 12/14/18 at 1453, CIWA Score 10-12 LORazepam tablet 2 mg (ATIVAN) 2 mg, oral, Every 1 hour PRN, withdrawal, Starting on Bernie 12/14/18 at 1453, CIWA Score 13-14 LORazepam tablet 3 mg (ATIVAN) 3 mg, oral, Every 1 hour PRN, withdrawal, Starting on Tue12/14/18 at 1453, CIWA Score 15-17 LORazepam tablet 4 mg (ATIVAN) 4 mg, oral, Every 1 hour PRN, withdrawal, Starting on Tue12/14/18 at 1453, CIWA Score 18 or greater metroNIDAZOLE tablet 500 mg (FLAGYL) Given 12/15/2018 8:43 AM CDT 500 mg 500 mg, oral, 3 times daily, First dose on Tue12/14/18 at 2100, Indications: Bone and/or joint infection Given 12/14/2018 9:05 PM CDT 500 mg multivitamin/mineral- tablet 1 Given 12/15/2018 8:43 AM CDT 1 tablet tablet 1 tablet, oral, Daily, First dose on Tue12/15/18 at 0900 NaCl 0.9% infusion 10-250 mL/hr, intravenous, As needed, Be tween Consecutive Piggyback Medications, Starting on Tue12/14/18 at 1318, Infuse at the same ra [...] Catheter (PICC) Valved, Starting on Bernie 12/14/18 a t 1554, Prior to and following infusion, between multiple consecutive infusions, prior to and following blood sampling, post blood transfusion. sodium chloride 0.9 % injection 10-30 mL Given 12/14/2018 6:57 PM CDT 10 mL 10-30 mL, intravenous, Every 7 days, First dose on Bernie 12/14/18 at 1600, Peripherally Inserted Central Catheter (PICC) [...] Every 12 hours scheduled, First dose on Bernie 12/14/18 at 2100, Peripheral Intravenous Catheter and Rapid [...] RTammy) 0139 (Given - Provider: Blanca Palmer R.N.)0625 (Given - Provider: Blanca Palmer R.N.)1517 (Given - Provider: Dionne Deng RAmaraNAmara) 1,000 mg, oral, Every 6 hours, First dose on Bernie 12/14/18 at 1300 carBAMazepine tablet 300 mg (TEGretol) 2 105 (Given - Provider: Rosanna Molina RTammy) 0843 (Given - Provider: Dionne baldwin R.NAmara) 300 mg, oral, 2 times daily, First dose on Bernie 12/14/18 at 2100 cefTRIAXone in dextrose (iso-osm) IVPB 2 g (ROCEPHIN) (CANCE LED) 1538 (New Bag - Provider: Rosanna Molina R.N.) 2 g, intravenous, at 200 mL/hr, Administ [...] intravenous, Every 8 hours, First dose on Tue12/14/18 at 1515, For 5 doses, Start 8 hours after intra-operative dose given. enoxaparin injection 40 mg (LOVENOX) 0843 (Given - Provider: Dionne Deng RTammy) 40 mg, subcutaneous, Daily, First dose on Tue12/15/18 at 0900 ertapenem 1 g in NaCl 0.9% IVPB (INVANZ) 0956 (New Bag - Provider: Dionne Deng RAmaraNAmara) 1 g, intravenous, at 200 mL/hr, Administ [...] (TORADOL) 1851 (Given - Provider: Rosanna Molina RAmaraNAmara) 0055 (Given - Provider: Blanca Palmer RAmaraN.)0625 (Given - Provider: Blanca Palmer RAmaraN.)1139 (Given - Provider: Dionne Deng RAmaraNAmara) 15 mg, intravenous, Every 6 hours schedu led, First dose on Tue12/14/18 at 1800, For 8 doses, Adult IV push rate: Over 15 seconds. Peds IV push rate: Over 1 minute. 60 mg dose only for IM, not recommended for IV. lisinopril tablet 10 mg (PRINIVIL,ZESTRIL) 1501 (Given - Provider: Elijah Severino R.N.) 0843 (Given - Provider: Dionne baldwin R.NAmara) 10 mg, oral, Daily, First dose (after last modificatio n) on Tue12/14/18 at 1500 metroNIDAZOLE tablet 500 mg (FLAGYL) (CANCELED) 2104 (Given - Provider: Rosanna Molina R.N.) 0843 (Given - Provider: Dionne baldwin RAmaraNAmara) 500 mg, oral, 3 times daily, First dose on Tue12/14/18 at 2100, Indications: Bone and/or joint infection multivitamin/mineral- tablet 1 tablet 0843 (Given - Provider: Dionne Deng R.N.) 1 tablet, oral, Daily, First dose on [...] Other) 0857 (Given - Provider: Dionne baldwin RAmaraNAmara) 3 mL, intravenous, Every 12 hours schedu [...] ringers 1316 (Not Given - Pr ovider: Hellen HendricksonNAmara - Reason: Other - Comment: SL PO>600) 110 mL/hr, intravenous, at 110 mL/hr, Continuous, Starting T 12/14/18 at 1300 lactated ringers 0920 (Continued from OR - Provider: Heidi Baptiste R.N.)1300 (Stopped - Provider: Elijah Severino R.N.) 20 mL/hr, intravenous, Continuous, Start ing on [facility] 12/14/18 at 0930, PACU & Post-Op PRN [...] 6 hours PRN , nausea, vomiting, Starting [facility] 12/14/18 at 1254, For 48 hours, Total [...] (New Bag - Prov ider: Rosanna Molina RTammy)1613 (Stopped - Provider: Rosanna Molina R.N.) 10-250 mL/hr, intravenous, As needed, Po st [...]
--- OUTSIDE RECORDS SUMMARY | 2022-05-05 14:43 | XMS_ITS | Encounter Summary ---
:1965 Author Organization [facility] Address [address] [place] [id number] Care Team Providers Name Role Phone Unavailable Primary Care Provider Unavailable Encounter Details Date Type Department Care Team Description 12/20/2006 - Hospital Encounter HX RST UNIT 5-4 12/24/2006 GYNECOLOGY Social History Tobacco Use Types Packs/Day Years Used Date Smoking Tobacco: Never Assessed Sex Assigned at Date Recorded Female 12/22/2018 12:54 PM CDT documented as of this encounter Plan of Treatment Upcoming Encounters Date Type Specialty Care Team Description 05/12/2022 Appointment Radiology Jamel Terrazas, STEM TEACHER, C.N.P., D. N.P. [address] [place] [phone] (Wo rk) 05/12/2022 Appointment Oral and Maxillofacial Issac Woodward, Surgery MKayla, D.D.S. [address] [place] [phone] (Wo rk) documented as of this encounter Procedures Procedure Name Priority Date/Time Associated Diagnosis Comme nts MSI/MMR IHC PROFILE Routine 12/20/2006 10:37 AM CDT DX ABDOMEN 1 VIEW Routine 12/20/2006 10:32 AM Res ults for this CDT procedure are i n the results section. HXGENERAL PATHOLOGY Routine 12/20/2006 9:01 AM Re sults for this REPORT CDT procedure are i n the results section. documented in this encounter Results Microsatellite Instability (MSI)/Mismatch Repair (MMR) Protein Immunohistochemistry Profile (12/20/2006 10:37 AM CDT) Specimen (Source) Anatomical Collection Method Collection Time Re ceived Time Location / / Volume Laterality 12/20/2006 10:37 AM CDT Jasmin Holguin P.A.-C. LAB GENETIC TESTING Performing Organization Address City/State/ZIP Code Phon e Number [facility] - [address] [place], [place] [address] [facility] DX Abdomen 1 View (12/20/2006 10:32 AM CDT) Anatomical Region Laterality Modality Abdomen N/A Radiographic Imaging Specimen (Source) Anatomical Collection Method Collection Time Re ceived Time Location / / Volume Laterality 12/20/2006 10:32 AM CDT Narrative 12/20/2006 10:36 AM CDT 20-Dec-2006 10:32:00 ??Exam: Post OP Abdomen Indications: Total abdominal hysterectom y. complex endometrial hyperplasia. ORIGINAL REPORT - 20-Dec-2006 10:36:00 Negative for PO purposes. Electronically signed by: ?? Hellen Dominguez MD ??[phone] 20-Dec-2006 1 0:36 Procedure Note Tyshawn Dominguez M.D. - 11/21/2017Form atting of this note might be different from the original. 20-Dec-2006 10:32:00 Exam: Post OP Abdom en Indications: Total abdominal hysterectom y. complex endometrial hyperplasia. ORIGINAL REPORT - 20-Dec-2006 10:36:00 Negative for PO purposes. Electronically signed by: Hellen Dominguez MD [phone] 20-Dec-2006 10: 36 Richard Youngblood M.D. IMG DIAGNOSTIC IMAGING PROCE [facility] Hx general Pathology Report (12/20/2006 9:01 AM CDT) Specimen Anatomical Collection Method Collection Time Receive d Time (Source) Location / / Volume Laterality 12/20/2006 9:01 AM 7 9:01 CDT AM CDT Narrative [facility] - 12/20/2006 9:01 AM CDT ??12/20/2006 Surgical Pathology ?([id number]) ??REVISED REPORT (Revised information u nderlined) ?Addendum/Procedure included ?? Requested By: Richard Youngblood M.D. ?? [phone] ? SLIDE DISPOSITION: ? DIAGNOSIS: ?? Uterus, endometrium, hysterectomy: ??Fo nury FIGO grade I (of III) endometrial adenocarcinoma, endometrioi d type, associated with extensive atypical complex hyperplasia arising in a background of disordered proliferative phase endometr ium. ??No invasion into myometrium seen. ?? Uterus, myometrium, hysterectomy: ??No diagnostic abnormalities. ?? Uterus, cervix, hysterectomy: ??No diag nostic abnormalities. ?? Ovary and fallopian tube, right and lef t, salpingo-oophorectomy: ??No diagnostic abnormalities. ?? 12/22/2006 13:10 Interpreted by: Branden Dunn M.D., PhD. 0-0005 Signature on File Transcribed by: selina 12/20/2006 09:35:40 ?ADDENDUM: At the request of Jasmin Mason P.A.-C H NPCC screen will be performed on cancer tissue sections (block A5); w hen completed, results will be available in Synthesis via [employer] tab. ? Transcribed by: ??[email or web address] ??09/29/2015 10:3 5:33 ? Signed by Bishnu Lala M.D. 09/30/2015 1 1:49:02 ? AMENDMENTS: ??(Previous Signout Date: ? ?12/20/2006) Revision Description: ??Permanent secti ons identify adenocarcinoma. ....Original Diagnosis.... Uterus, endometrium, hysterectomy: ??Fo ci of complex hyperplasia with atypia arising in a background of disor dered proliferative phase endometrium. ?? Uterus, myometrium, hysterectomy: ??No diagnostic abnormalities. ?? Uterus, cervix, hysterectomy: ??No diag nostic abnormalities. ?? Ovary and fallopian tube, right and lef t, salpingo-oophorectomy: ??No diagnostic abnormalities. ? GROSS DESCRIPTION: Uterus, right ovary (4.0 x 2.8 x 1.3 cm ) with 3.2 cm segment of right fallopian tube, and left ovary (4 .0 x 2.8 x 1.3 cm) with 6.2 cm segment of left fallopian tube toget her weighing 165.0 ??grams. BLOCK SUMMARY: Part A: ??Uterus, tubes, ovaries ?1 6:00 cervix ?2 rt tube ?3 lt tube ?4 endomet ?5 endomet ?6 lt ovary ?7 rt ovary ?8 myometrium ?9 endomet ?10 endomet ?11 endomet ?12 endomet ? Procedure Note 11/12/2017 12/20/2006 Surgical Pathology ([id number]) REVISED REPORT (Revised information und erlined) Addendum/Procedure included Requested By: Richard Youngblood M.D. [phone] SLIDE DISPOSITION: DIAGNOSIS: Uterus, endometrium, hysterectomy: Foca l FIGO grade I (of III) endometrial adenocarcinoma, endometrioi d type, associated with extensive atypical complex hyperplasia arising in a background of disordered proliferative phase endometr ium. No invasion into myometrium seen. Uterus, myometrium, hysterectomy: No di agnostic abnormalities. Uterus, cervix, hysterectomy: No diagno stic abnormalities. Ovary and fallopian tube, right and lef t, salpingo-oophorectomy: No diagnostic abnormalities. 12/22/2006 13:10 Interpreted by: Branden Dunn M.D., PhD. [phone] Signature on File Transcribed by: selina 12/20/2006 09:35:40 ADDENDUM: At the request of Jasmin Mason P.A.-C, H NPCC screen will be performed on cancer tissue sections (block A5); w hen completed, results will be available in Synthesis via [employer] tab. Transcribed by: [email or web address] 09/29/2015 10:35:33 Signed by Bishnu Lala M.D. 09/30/2015 1 1:49:02 AMENDMENTS: (Previous Signout Date: 08/2006) Revision Description: Permanent section s identify adenocarcinoma. ....Original Diagnosis.... Uterus, endometrium, hysterectomy: Foci of complex hyperplasia with atypia arising in a background of disor dered proliferative phase endometrium. Uterus, myometrium, hysterectomy: No di agnostic abnormalities. Uterus, cervix, hysterectomy: No diagno stic abnormalities. Ovary and fallopian tube, right and lef t, salpingo-oophorectomy: No diagnostic abnormalities. GROSS DESCRIPTION: Uterus, right ovary (4.0 x 2.8 x 1.3 cm ) with 3.2 cm segment of right fallopian tube, and left ovary (4 .0 x 2.8 x 1.3 cm) with 6.2 cm segment of left fallopian tube toget her weighing 165.0 grams. BLOCK SUMMARY: Part A: Uterus, tubes, ovaries 1 6:00 cervix 2 rt tube 3 lt tube 4 endomet 5 endomet 6 lt ovary 7 rt ovary 8 myometrium 9 endomet 10 endomet 11 endomet 12 endomet Richard Youngblood M.D. LAB PATHOLOGY/CYTOLOGY ORDER SATISH Performing Organization Address City/State/ZIP Code Phon e Number [facility] - [address] [place], [place] [address] [facility] documented in this encounter Visit Diagnoses Not on filedocumented in this encounter
--- OUTSIDE RECORDS SUMMARY | 2022-05-05 14:43 | XMS_ITS | Encounter Summary ---
:1965 Author Organization [facility] Address [address] [place] [address] Care Team Providers Name Role Phone Unavailable Primary Care Provider Unavailable Reason for Referral MRI/CAT/PET Scan (Routine) - Closed Specialty Diagnoses / Procedures Referred By Contact Refer red To Contact Radiology Diagnoses Osteomyelitis Mandible Huseyin Bolton M.D., D.MCece. [facility] Procedures CT Maxillofacial with IV Contrast CT Neck Soft Tissue with IV Contrast MO CT NECK/SOFT TISS W CNTRST HC CT NECK/SOFT TISS W CNTRST MO CT NECK/SOFT TISS W CNTRST MO CT MAXFAC W CNTRST HC CT MAXFAC W CNTRST MO CT MAXFAC W CNTRST [address] [place] [address] Referral ID Status Reason Start Date Expiration Date Visits Requ ested Visits Authorized [id number] Closed 12/11/2018 12/11/2019 1 1 Encounter Details Date Type Department Care Team Description 12/11/2018 Orders Only Division of Oral and Andreina Valenzuela Oste omyelitis Mandible Maxillofacial Surgery in A, R.D. H. (Primary Dx) [place], [place] [address] [place] [address] [address] [place], [place] [phone] Social History Tobacco Use Types Packs/Day Years Used Date Smoking Tobacco: Never Assessed Sex Assigned at Date Recorded Female 12/22/2018 12:54 PM CDT documented as of this encounter Plan of Treatment Upcoming Encounters Date Type Specialty Care Team Description 05/12/2022 Appointment Radiology Jamel Terrazas APRN, CAmaraN.PAmara, D. N.P. [address] [place] [phone] (Wo rk) 05/12/2022 Appointment Oral and Maxillofacial Issac Woodward, Surgery Marlyn, D.D.S. [address] [place] [phone] (Vasiliy rk) documented as of this encounter Results CT [...] uncertain etiology or significance. Huseyin Bolton M.D., Markie. IMG CT PROCEDURES Sodium (12/13/2018 10:57 AM CDT) P athologist Signature Sodium, S 142 135 - 145 12/13/2018 [facility] mmol/L 12:00 PM CDT LABORATORIES - [facility] Specimen Anatomical Collection Method Collection Time Receive d Time (Source) Location / / Volume Laterality Blood (Blood, 12/13/2018 10:57 12/13/2018 Venous) AM CDT 11:18 AM CDT Huseyin Bolton M.D., Sarah LAB BLOOD ADD-ON Performing Organization Address City/State/ZIP Code Phon e Number [facility] LABORATORIES - [address] [place], [place] [address] [facility] (ABNORMAL) Potassium (12/13/2018 10:57 AM CDT) Analysis Performed At Patho logist Time Signature Potassium, S 5.5 (H) 3.6 - 5.2 12/13/2018 [facility] mmol/L 12:00 PM CDT LABORATORIES - [facility] Specimen Anatomical Collection Method Collection Time Receive d Time (Source) Location / / Volume Laterality Blood (Blood, 12/13/2018 10:57 12/13/2018 Venous) AM CDT 11:18 AM CDT Huseyin Bolton M.D., D.M.D. LAB BLOOD ADD-ON Performing Organization Address City/State/ZIP Code Phon e Number [facility]ATORIES - [address] [place] [phone] [facility] Creatinine with Estimated GFR (12/13/2018 10:57 AM CDT) Analysis Performed At Patho logist Time Signature Creatinine 0.81 0.59 - 12/13/2018 [facility] 1.04 mg/dL 12:00 PM CDT LABORATORIES - [facility] eGFR-Non 82 >=60 12/13/2018 [facility] Black/ mL/min/BSA 12:00 PM CDT LABORATORIES - [facility] Comment: ----ADDITIONAL INFORMATION---- Estimated GFR calculated using the 2009 CKD_EPI creatinine equation. eGFR-Black/ >90 >=60 mL/min/BSA 12/13/2018 12:0 0 [facility] CDT LABORATORIES - [facility] Comment: ----ADDITIONAL INFORMATION---- Estimated GFR calculated using the 2009 CKD_EPI creatinine equation. Specimen Anatomical Collection Method Collection Time Receive d Time (Source) Location / / Volume Laterality Blood (Blood, 12/13/2018 10:57 12/13/2018 Venous) AM CDT 11:18 AM CDT Huseyin Bolton M.D., D.M.D. LAB BLOOD ADD-ON Performing Organization Address City/[facility]/ZIP Code Phon e Number [facility] LABORATORIES - [address] [place] [phone] [facility] Chloride (12/13/2018 10:57 AM CDT) P athologist Signature Chloride, S 102 98 - 107 12/13/2018 [facility] mmol/L 12:00 PM CDT LABORATORIES [facility] Specimen Anatomical Collection Method Collection Time Receive d Time (Source) Location / / Volume Laterality Blood (Blood, 12/13/2018 10:57 12/13/2018 Venous) AM CDT 11:18 AM CDT Huseyin Bolton M.D., D.M.D. LAB BLOOD ADD-ON Performing Organization Address City/[facility]/ZIP Code Phon e Number [facility] LABORATORIES - [address] [place] [phone] [facility] BUN (Blood Urea Nitrogen) (12/13/2018 10:57 AM CDT) P athologist Signature BUN (Blood 15 6 - 21 12/13/2018 [facility] Urea mg/dL 12:00 PM CDT LABORATORIES - Nitrogen), S [facility] Specimen Anatomical Collection Method Collection Time Receive d Time (Source) Location / / Volume Laterality Blood (Blood, 12/13/2018 10:57 12/13/2018 Venous) AM CDT 11:18 AM CDT Shad Yap M.D.MKayla LAB BLOOD ADD-ON Performing Organization Address City/[facility] Code Phon e Number [facility]IES - [address] [place] [phone] [facility] Bicarbonate (12/13/2018 10:57 AM CDT) P athologist Signature Bicarbonate, S 29 22 - 29 12/13/2018 [facility] mmol/L 12:00 PM CDT LABORATORIES - [facility] Specimen Anatomical Collection Method Collection Time Receive d Time (Source) Location / / Volume Laterality Blood (Blood, 12/13/2018 10:57 12/13/2018 Venous) AM CDT 11:18 AM CDT Shad Yap M.D.MCece. LAB BLOOD ADD-ON Performing Organization Address City/State/[facility] Code Phon e Number [facility] LABORATORIES - [address] [place] [phone] [facility] documented in this encounter Visit Diagnoses Diagnosis Osteomyelitis Mandible - Primary Osteomyelitis Mandible documented in this encounter
--- OUTSIDE RECORDS SUMMARY | 2022-05-05 14:43 | XMS_ITS | Encounter Summary ---
:1965 Author Organization [facility] Address [address] [place] [address] Care Team Providers Name Role Phone Unavailable Primary Care Provider Unavailable Encounter Details Date Type Department Care Team Description 12/09/2018 Clinical Communication Division of Oral and Rocio Bolton, Maxillofacial Surgery in Marlyn, D AmaraM.D. [place], [place] [address] [facility] [address] [place] [phone] Social History Tobacco Use Types Packs/Day Years Used Date Smoking Tobacco: Never Assessed Sex Assigned at Date Recorded Female 12/22/2018 12:54 PM CDT documented as of this encounter Miscellaneous Notes Telephone Encounter - Andreina Valenzuela R.D.H. - 12/11/2018 12:54 PM CDT Orders have been placed for Electrolyte panel and CT prior to consultation on same day: osteomyelitis of the right mandible Telephone Encounter - Mallory Ness - 12/09/2018 7:[address] Bolton's triage this patient needs a Neck Ct with contrast and an electrolyte panel ordered for her. The indication is osteomyelitis of the right mandible documented in this encounter Plan of Treatment Upcoming Encounters Date Type Specialty Care Team Description 05/12/2022 Appointment Radiology Trerazas, Jamel Hendrix APRN, C.N.P., D. N.P. [address] [place] [phone] (Wo rk) 05/12/2022 Appointment Oral and Maxillofacial Issac Woodward Surgery M.D., D.D.S. [address] [place] [phone] (Vasiliy ac) documented as of this encounter Visit Diagnoses Not on filedocumented in this encounter
--- NOTE | 2022-05-05 15:00 | CRLHL7_ITS ---
For Patients: As a result of the Century Cures Act, medical imaging exams and procedure reports are released immediately into your electronic medical record. You may view this report before your referring provider. If you have questions, please contact your health care provider. BILATERAL SCREENING MAMMOGRAM WITH COMPUTER-AIDED DETECTION AND TOMOSYNTHESIS TECHNIQUE: CC and MLO views were obtained. These mammographic images have been obtained using full-field digital technique. These mammographic images were interpreted with the benefit of computer-aided detection. Breast Tomosynthesis was used in this interpretation. COMPARISON FILM: 03/28/20, 12/20/17, 01/12/16, 11/15/13. FINDINGS: There are scattered areas of fibroglandular density IMPRESSION: There is no radiographic evidence for malignancy. ASSESSMENT: BI-RADS Category 1: Negative RECOMMENDATION: Routine screening mammogram in 1 year. A lay language report of this examination will be provided to the patient. Eladio Ni M.D. Diagnostic Radiologist [email or web address] MARISOL/Dictated by: Eladio Ni MD @ 05/06/2022 8:35:00 AM (Electronically Signed)
--- NOTE | 2022-05-05 15:30 | CRLHL7_ITS ---
For Patients: As a result of the Century Cures Act, medical imaging exams and procedure reports are released immediately into your electronic medical record. You may view this report before your referring provider. If you have questions, please contact your health care provider. DXA BONE MINERAL DENSITY STUDY Current height (in): 69.0 Weight (lb): 170.0 Menopause age: 30 Ethnicity: White 1. Have you had a previous hip or vertebral fracture? No. 2. Have you had any fractures during your adult life which did not result from significant trauma (e.g., auto accident)? No. 3. Did either of your parents have a hip fracture? No. 4. Do you smoke? Yes. 5. Have you ever taken Glucocorticoids? No. 6. Do you have rheumatoid arthritis? No. 7. Do you have secondary osteoporosis? No. 8. Do you drink 3 or more alcoholic drinks per day? No. 9. Are you being treated for osteoporosis? No. 10. Have you ever taken any of the following medications: Actonel, Evista, Fosamax, Miacalcin, Reclast, Boniva, Forteo, HRT (i.e. estrogen/hormone therapy), Protelos, Prolia, Vitamin D, Calcium, other ??? please specify. ANSWER: Yes, Vitamin D. 11. Do you have any of the following medical conditions: Anorexia or bulimia, asthma or emphysema, end stage renal disease, hyperparathyroidism, any seizure disorders, cancer, inflammatory bowel diseases, hysterectomy, other ??? please specify. ANSWER: Yes, cancer, hysterectomy. 12. What was your maximum height (inches)? 69 13. Do you perform weight bearing exercise regularly? No. 14. Do you regularly consume dairy products? Yes. 15. Do you drink caffeinated beverages? Yes. 16. At what age did your period start? 11 17. Are you premenopausal? No. 18. How many full term pregnancies have you had? 3 19. Have you ever missed your period for more than 6 months in a row (not including or menopause)? No. TECHNIQUE: Bone mineral density study was performed using the [employer]. FINDINGS: The results of the study expressed as bone mineral density (BMD) are as follows: Lumbar spine L1 to L4: BMD: 0.857 g/cm2. T-score: -1.7. Z-score: -0.4. Neck Left: BMD: 0.679 g/cm2. T-score: -1.5. Z-score: -0.3. Right: BMD: 0.717 g/cm2. T-score: -1.2. Z-score: 0.1. Total Left: BMD: 0.805 g/cm2. T-score: -1.1. Z-score: -0.2. Right: BMD: 0.845 g/cm2. T-score: -0.8. Z-score: 0.1. IMPRESSION: Osteopenia. *Comparison exams done prior to 01/2020 were performed on different unit, DAQRI. COMPARISON: Compared with scan of 12/26/2017, the bone mineral density has decreased by 4.8 percent at the spine and increased by 0.6 percent at the hip. FRAX 10-year Fracture Risk Major Osteoporotic Fracture: 8.1 percent Hip Fracture: 1.1 percent Reported Risk Factors: [place] () Neck BMD=0.679, BMI=25.1, smoking. Eladio Ni M.D. Diagnostic Radiologist [email or web address] DSM/pjt PT/Dictated by: Eladio Ni MD @ 05/06/2022 9:07:00 AM (Electronically Signed)
== END 2022-05-05 14:37 | disposition home or self-care (01) ==
LOC: MAMMO 14:36
PROVIDERS: PCP Family Medicine; Visit Provider Family Medicine
DX: Z12.31 Encounter for screening mammogram for malignant neoplasm of breast (principal); M85.80 Other specified disorders of bone density and structure, unspecified site; M85.89 Other specified disorders of bone density and structure, multiple sites
CPT/HCPCS: 77063; 77067; 77080

== ENCOUNTER 2022-11-10 15:33 | Emergency (ER) | payer BC, SELFPAY ==
[2022-11-10 15:36] VITALS: BP 162/90; PULSE 96; RESP 16; TEMP 35.6; O2SAT 100; BMI 26.6
--- NOTE | 2022-11-10 15:53 | ED.GENADULT ---
HPI - General Adult General Time Seen by Provider: 15:53 Date Seen: 11/10/22 Chief complaint: Hypertension Stated complaint: High Blood Pressure Time Seen by Provider: 11/10/22 15:36 Source: patient and RN notes reviewed Mode of arrival: ambulatory Limitations: no limitations History of Present Illness HPI narrative: Patient is a 57-year-old female that was referred to us from clinic for hypertension, headache, complaint of blurry vision. Patient states last few days her blood pressure has been elevated, systolics of 160-180 at home. She feels that her vision is maybe more blurry. 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 She does smoke cigarettes, does drink alcohol daily. She states she has no numbness tingling, no weakness, no incoordination. Speech is been fine. 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 Reviewed with her that this type of imaging with CT would not be problematic. She denies any chest pain, no palpitations, no difficulty breathing. She called her primary care doctor Dr. Rust and she requested that she come to the ER. Patient admits she had 1 day last week where she had runny nose and cold symptoms and did not feel well. It went away quickly. She has increased her lisinopril to 20 mg daily the last 2 days. She had been on 10 mg of lisinopril for years per her report. Related Data Home Medications Medication Instructions Recorded Confirmed calcium carbonate 200 mg calcium 200 mg PO BID 03/04/22 03/04/22 (500 mg) chewable tablet (Antacid (calcium carbonate)) ibuprofen 200 mg tablet 200 mg PO PRN 03/04/22 03/04/22 omega-3 acid ethyl esters 1 gram 1 cap PO QDAY 03/04/22 03/04/22 capsule Previous Rx's Medication Instructions Recorded lisinopril 10 mg tablet 10 mg PO DAILY #90 tabs 03/04/22 cholecalciferol (vitamin D3) 25 25 mcg PO QDAY #90 tabs 03/05/22 mcg (1,000 unit) tablet rosuvastatin 5 mg tablet (Crestor) 5 mg PO QDAY #90 tabs 03/05/22 Allergies Allergy/AdvReac Type Severity Reaction Status Date / Time No Known Allergies Allergy Unknown Verified 11/10/22 15:40 Review of Systems Status of ROS: Reports: 10 or more systems reviewed and unremarkable except as noted in History and below PFSH [facility] Medical History (Updated 11/10/22 @ 16:51 by Audrey Sanchez MD) Depression Dyslipidemia (2015) Early onset menopause Health care directive on file History of depression (09/26/09) Hyperplastic colonic polyp (2013) Hypertension with goal blood pressure less than 140/90 Malignant neoplasm of endometrium (2005) Noncompliance Obstructive sleep apnea treated with continuous positive airway pressure (CPAP) Osteopenia (2015) Tobacco abuse Toxoplasmosis chorioretinitis of left eye (2009) Surgical History (Updated 03/04/22 @ 16:35 by Misty Rust MD) History of elbow surgery (1998) History of hysterectomy with oophorectomy (2005) History of lumbosacral spine surgery (2004) History of mandibular surgery (02/07/20) History of tubal ligation (1985) Status post cholecystectomy (2003) Family History (Updated 03/04/22 @ 16:36 by Misty Rust MD) Maternal Grandmother Breast cancer Mother COPD (chronic obstructive pulmonary disease) Diabetes Leukemia Father Coronary artery disease, Onset Age: 65 Daughter Epilepsy Social History (Updated 03/04/22 @ 16:37 by Misty Rust MD) Narrative: Exercise by yard work and gardening daily , quit job, 3 adults kids Social drinker- 7/week Tobacco abuse- 1 pack/day x 30 years Smoking Status: Current every day smoker How often do you have a drink containing alcohol: never How often do you have six or more drinks on one occasion: Never AUDIT-C Alcohol total score: 0 Non-prescribed substance use: denies use Little interest or pleasure in doing things: not at all Feeling down, depressed, or hopeless: not at all service: No Exam Const: Vital Signs, click to edit/add: Vital Signs - 24 hr 11/10/22 15:36 Temperature 96.0 F L Pulse Rate [Pulse Oximeter] 96 Respiratory Rate 16 Blood Pressure [Ri ght Upper Arm] 162/90 H Pulse Oximetry 100 Oxygen Delivery Me thod Room Air Documenting provider has reviewed patient's vital signs: yes Common normals: no apparent distress, average body habitus, oriented x3, no limitations, healthy appearing, alert and well nourished General appearance: cooperative, comfortable, well kempt and well developed Other: Boyd facial complexion. HENMT: Common normals: normocephalic, head/scalp atraumatic, hearing grossly normal bilaterally, TM's normal bilaterally, external nose normal, nasal mucous membranes and turbinates normal, moist oral mucous membranes and oropharynx normal Head and scalp: normocephalic and atraumatic Nose: external nose normal and nasal mucous membranes and turbinates normal Tympanic membrane: TM's normal bilaterally Eye: Common normals: PERRL, EOMs intact bilaterally, conjunctivae normal and no scleral icterus Conjunctiva: conjunctiva(e) normal Pupil: PERRL Neck & C-Spine: Common normals: full ROM, no lymphadenopathy, supple, no meningeal signs, no JVD and thyroid normal Thyroid: thyroid normal Resp: Common normals: normal respiratory effort, no retractions, no use of accessory muscles and clear to auscultation bilaterally Auscultation: clear to auscultation bilaterally Cardio: Common normals: no JVD, regular rate, regular rhythm, S1 normal heart sound, S2 normal heart sound, no gallops, no clicks and no murmurs Rate: regular rate Rhythm: regular rhythm Heart sounds: S1 normal and S2 normal GI: Common normals: Normal to inspection, nondistended, normoactive bowel sounds present, soft to palpation, non-tender, no hepatosplenomegaly and no masses Palpation: soft and no hepatosplenomegaly Extremity: Common normals: no calf tenderness and no pedal edema Neuro: Common normals: oriented x3, CN's II-XII intact bilaterally, moves all extremities, no focal motor deficits, no sensory deficits noted and gait normal Sensorium/orientation: alert Meningeal signs: no meningeal signs Psych: Appearance: well kempt Course Course Hospital Course: Reviewed with patient that we will get a head CT. Will have nursing staff do visual acuity and expect that might be abnormal given her history. Will do full complement of labs, baseline EKG. This sounds like hypertension that is likely worsening. Patient has some risk factors in her lifestyle with smoking and alcohol use that may potentiate this. Will rule out stroke pathology, any end-organ disease from hypertension. This does not seem like a hypertensive urgency or crisis at this time. Reevaluation(s) Reevaluation #1: Reviewed with patient that her head CT is showing no acute pathology. Will await labs and visual acuity. Time: 16:48 Vital Signs Vital signs: Initial Vital Signs Temperature 96.0 F L 11/10/22 15:36 Temperature Source Temporal Artery Scan 11/10/22 15:36 Pulse Rate 96 11/10/22 15:36 Pulse Rhythm 11/10/22 15:36 Pulse Strength 3+ Normal 11/10/22 15:36 Respiratory Rate 16 11/10/22 15:36 Blood Pressure 162/90 H 11/10/22 15:36 Blood Pressure Mean 114 11/10/22 15:36 Blood Pressure Position Sitting 11/10/22 15:36 Pulse Oximetry 100 11/10/22 15:36 Oxygen Delivery Method 11/10/22 15:36 Vital Signs Temperature 96.0 F L 11/10/22 15:36 Pulse Rate 96 11/10/22 15:36 Respiratory Rate 16 11/10/22 15:36 Blood Pressure 162/90 H 11/10/22 15:36 Pulse Oximetry 100 11/10/22 15:36 Oxygen Delivery Method 11/10/22 15:36 Temperature 96.0 F L 11/10/22 15:36 Pulse Rate 96 11/10/22 15:36 Respiratory Rate 16 11/10/22 15:36 Blood Pressure 162/90 H 11/10/22 15:36 Pulse Oximetry 100 11/10/22 15:36 Oxygen Delivery Method 11/10/22 15:36 Medical Decision Making Lab Data Lab results reviewed: Yes I reviewed the patient's lab results Labs: Lab Results 11/10/22 11/10/22 11/10/22 Range/Units 16:02 16:14 16:14 WBC 7.85 (4.50-11.00) K/uL RBC 4.93 (4.00-5.20) m/uL Hgb 14.8 (12.0-16.0) gm/dL Hct 44.9 (33.0-51.0) % MCV 91 (80-100) fL MCH 30 (26-34) pg MCHC 33 (32-36) gm/dL RDW Coeff of Jena 13.0 (11.5-15.5) % Plt Count 258 (140-440) K/uL Neut % (Auto) 60.9 (42.0-72.0) % Lymph % (Auto) 30.6 (20-44) % Wise % (Auto) 5.7 (0.0-11.0) % Eos % (Auto) 1.8 (0.0-7.0) % Baso % (Auto) 0.9 (0.0-3.0) % Neut # (Auto) 4.78 (1.7-7.0) K/uL Lymph # (Auto) 2.40 (0.90-2.90) K/uL Wise # (Auto) 0.40 (0.00-0.90) K/UL Eos # (Auto) 0.14 (0.00-0.50) K/uL Baso # (Auto) 0.07 (0.00-0.30) K/uL Sodium Cancelled 139 Potassium Cancelled 4.2 Chloride Cancelled 104 Carbon Dioxide Cancelled 26 BUN Cancelled 16 Creatinine Cancelled 0.8 Estimated Creat Clear Cancelled 79.13 Estimated GFR Cancelled 85 Glucose Cancelled 93 Calcium Cancelled 10.1 Magnesium 2.0 (1.5-2.6) mg/dL Total Bilirubin Cancelled 0.4 AST Cancelled 35 ALT Cancelled 35 Alkaline Phosphatase Cancelled 67 Total Protein Cancelled 8.0 Albumin Cancelled 4.8 Lipase 63 (23-300) U/L POC Troponin I (0.01-0.04) ng/ml 11/10/22 Range/Units 16:14 WBC (4.50-11.00) K/uL RBC (4.00-5.20) m/uL Hgb (12.0-16.0) gm/dL Hct (33.0-51.0) % MCV (80-100) fL MCH (26-34) pg MCHC (32-36) gm/dL RDW Coeff of Jena (11.5-15.5) % Plt Count (140-440) K/uL Neut % (Auto) (42.0-72.0) % Lymph % (Auto) (20-44) % Wise % (Auto) (0.0-11.0) % Eos % (Auto) (0.0-7.0) % Baso % (Auto) (0.0-3.0) % Neut # (Auto) (1.7-7.0) K/uL Lymph # (Auto) (0.90-2.90) K/uL Wise # (Auto) (0.00-0.90) K/UL Eos # (Auto) (0.00-0.50) K/uL Baso # (Auto) (0.00-0.30) K/uL Sodium Potassium Chloride Carbon Dioxide BUN Creatinine Estimated Creat Clear Estimated GFR Glucose Calcium Magnesium (1.5-2.6) mg/dL Total Bilirubin AST ALT Alkaline Phosphatase Total Protein Albumin Lipase (23-300) U/L POC Troponin I 0.00 L (0.01-0.04) ng/ml Imaging Data CT scan - head: Attestation: I have reviewed the pertinent imaging results. Radiologist's impression: Patient: KAREY WINCHESTER Facility:?[facility] Patient ID:?[id number] Site Patient ID:?[id number]. Site :?[id number] Study:?CT Head W/O-11/10/2022 4:31:21 PM Ordering Physician:Courtney Ventura Final Report: INDICATION: Headache, blurry vision, hypertension TECHNIQUE: CT head without contrast. COMPARISON: 02/04/2010 FINDINGS: CSF spaces: Within normal limits for age. Brain parenchyma: The mercado-white differentiation is normal. No sign of mass, hemorrhage, or midline shift. Skull base and calvarium: The visualized paranasal sinuses and mastoid air cells demonstrate no acute or significant findings. The visualized orbits are grossly unremarkable. No skull fractures. IMPRESSION: Unremarkable noncontrast head CT. Dictated by Eladio Lovett MD @ 11/10/2022 4:35:42 PM Please note that all CT scans at this facility use dose modulation, iterative reconstruction, and/or weight-based dosing when appropriate to reduce radiation dose to as low as reasonably achievable. Dictated by: Eladio Lovett MD @ 11/10/2022 16:35:48 (Electronic Signature) ECG Data Attestation: I personally reviewed and interpreted this ECG as follows: (Sinus rhythm, 60 beats per minute, no acute changes, normal EKG. Four hundred ten milliseconds for QT interval corrected.) Prior ECG tracings: not available for review Critical Care Time Critical Care Time Critical Care Time: No Discharge Plan Discharge Clinical Impression: Hypertension Patient Disposition: Home, Self-Care Condition: Stable Instructions: Heart Healthy Diet (ED), DASH Eating Plan (ED), Hypertension (ED) Additional Instructions: Alcohol and smoking are both independently linked in increasing blood pressure levels. Highly encourage you to minimize alcohol use and on work on smoking cessation. Need to schedule follow-up with your primary care provider for recheck of your blood pressure. Do recommend being on lisinopril 20 mg daily, this may take more than a couple of days for to achieve maximal affect. Need to schedule a clinic followup within the next 1-2 weeks for recheck of your blood pressure. If the blood pressure is still elevated at the time of follow-up, lisinopril dose can be escalated and possibly a diuretic like hydrochlorothiazide may need to be added. Will ultimately defer to your primary care provider to treat your hypertension. Follow the handouts, try to institute some of the lifestyle recommendations including dietary changes. Activity Level: Activity as Tolerated Prescriptions: No Action omega-3 acid ethyl esters 1 gram capsule 1 cap PO QDAY calcium carbonate [Antacid (calcium carbonate)] 200 mg calcium (500 mg) tablet,chewable 200 mg PO BID ibuprofen 200 mg tablet 200 mg PO PRN lisinopril 10 mg tablet 10 mg PO DAILY Qty: 90 4RF rosuvastatin [Crestor] 5 mg tablet 5 mg PO QDAY Qty: 90 0RF cholecalciferol (vitamin D3) 25 mcg (1,000 unit) tablet 25 mcg PO QDAY Qty: 90 4RF Follow Up/Referrals: Misty Rust MD [Primary Care Provider] - Stand Alone Forms: [employer] Info Instructions
--- NOTE | 2022-11-10 16:02 | CRLHL7_ITS ---
For Patients: As a result of the Century Cures Act, medical imaging exams and procedure reports are released immediately into your electronic medical record. You may view this report before your referring provider. If you have questions, please contact your health care provider. INDICATION: Headache, blurry vision, hypertension TECHNIQUE: CT head without contrast. COMPARISON: 02/04/2010 FINDINGS: CSF spaces: Within normal limits for age. Brain parenchyma: The mercado-white differentiation is normal. No sign of mass, hemorrhage, or midline shift. Skull base and calvarium: The visualized paranasal sinuses and mastoid air cells demonstrate no acute or significant findings. The visualized orbits are grossly unremarkable. No skull fractures. IMPRESSION: Unremarkable noncontrast head CT. Dictated by Eladio Lovett MD @ 11/10/2022 4:35:42 PM Please note that all CT scans at this facility use dose modulation, iterative reconstruction, and/or weight-based dosing when appropriate to reduce radiation dose to as low as reasonably achievable. Dictated by: Eladio Lovett MD @ 11/10/2022 16:35:48 (Electronically Signed)
[2022-11-10 16:37] LABS: Basophils Absolute Auto 0.07 K/uL (0.00-0.30); Basophils Percent Auto 0.9 % (0.0-3.0); Eosinophils Absolute Auto 0.14 K/uL (0.00-0.50); Eosinophils Percent Auto 1.8 % (0.0-7.0); Hematocrit 44.9 % (33.0-51.0); Hemoglobin* 14.8 gm/dL (12.0-16.0); Immature Granulocytes Abs Auto 0.01 K/uL (0.00-0.30); Immature Granulocytes Pct Auto 0.1 %; Lymphocytes Percent Auto 30.6 % (20-44); Mean Corpuscular HGB Conc 33 gm/dL (32-36); Mean Corpuscular Hemoglobin 30 pg (26-34); Mean Corpuscular Volume 91 fL (80-100); Monocytes Percent Auto 5.7 % (0.0-11.0); Neutrophils Absolute Auto 4.78 K/uL (1.7-7.0); Neutrophils Percent Auto 60.9 % (42.0-72.0); Platelet Count* 258 K/uL (140-440); Red Blood Count 4.93 m/uL (4.00-5.20); White Blood Count* 7.85 K/uL (4.50-11.00)
[2022-11-10 16:42] LABS: Slide Review Reflex No
[2022-11-10 17:36] LABS: Albumin* 4.8 g/dL (3.3-5.0); Chloride* 104 mmol/L (96-114)
[2022-11-10 17:37] LABS: Potassium* 4.2 mmol/L (3.6-5.1); Sodium* 139 mmol/L (135-149)
[2022-11-10 17:39] LABS: Alkaline Phosphatase* 67 U/L (40-150); Aspartate Amino Transferase* 35 U/L (12-35); Bilirubin Total* 0.4 mg/dL (0.1-1.5); Blood Urea Nitrogen* 16 mg/dL (7-30); Carbon Dioxide* 26 mmol/L (20-32); Creatinine* 0.8 mg/dL (0.5-1.5); Est. Creatinine Clearance* 79.13; Estimated Glomerular Filt Rate 85 ml/min; Glucose* 93 mg/dL (60-115)
[2022-11-10 17:40] LABS: Alanine Aminotransferase* 35 U/L (4-35); Calcium* 10.1 mg/dL (8.4-10.6); Lipase* 63 U/L (23-300)
[2022-11-10 18:04] LABS: NT Pro B Type NatriureticPept* < 20 pg/mL
== END 2022-11-10 18:01 | disposition home or self-care (01) ==
PROVIDERS: Emergency Provider Family Medicine; PCP Family Medicine
DX: I10 Essential (primary) hypertension (principal)
CPT/HCPCS: 36415; 70450; 80053; 83690; 83735; 83880; 84484; 85025; 93005; 99284; 99285

== ENCOUNTER 2022-11-23 09:47 | Outpatient (CLI) | payer BC, SELFPAY | END 2022-11-23 09:48 | disposition home or self-care (01) | PROVIDERS: PCP Family Medicine; Visit Provider Family Medicine | DX: I10 Essential (primary) hypertension (principal); R79.89 Other specified abnormal findings of blood chemistry | CPT/HCPCS: 80048 ==

== ENCOUNTER 2023-03-28 07:53 | Outpatient (CLI) | payer BC, SELFPAY | END 2023-03-28 07:54 | disposition home or self-care (01) | LOC: NFLDREF 03-30 12:59 | PROVIDERS: PCP Family Medicine; Referring Provider Family Medicine; Visit Provider Family Medicine | DX: E78.5 Hyperlipidemia, unspecified (principal); I10 Essential (primary) hypertension; M85.80 Other specified disorders of bone density and structure, unspecified site | CPT/HCPCS: 80053; 80061; 82306 ==

== ENCOUNTER 2024-01-27 07:06 | Outpatient (CLI) | payer BC, SELFPAY ==
--- NOTE | 2024-01-27 08:26 | W.ANESCHARGE ---
Anesthesia Charges Start Date/Time Anesthesia Start Date: 01/27/24 Anesthesia Start Time: 08:00 Stop Date/Time Anesthesia Stop Date: 01/27/24 Anesthesia Stop Time: 08:23
--- NOTE | 2024-01-27 10:23 | W.ANESCHARGE ---
Anesthesia Charges Start Date/Time Anesthesia Start Date: 01/27/24 Anesthesia Start Time: 08:00 Stop Date/Time Anesthesia Stop Date: 01/27/24 Anesthesia Stop Time: 08:23
== END 2024-01-27 07:07 | disposition home or self-care (01) ==
LOC: OP CLINIC 07:06
PROVIDERS: PCP Family Medicine; Visit Provider Internal Medicine
DX: Z12.11 Encounter for screening for malignant neoplasm of colon (principal); K62.1 Rectal polyp; K57.30 Diverticulosis of large intestine without perforation or abscess without bleeding
CPT/HCPCS: 00811; 45380; 88305; J2704

== ENCOUNTER 2024-03-30 07:25 | Outpatient (CLI) | payer BC, SELFPAY | END 2024-03-30 07:26 | disposition home or self-care (01) | LOC: NFLDREF 04-03 15:19 | PROVIDERS: PCP Family Medicine; Referring Provider Family Medicine; Visit Provider Family Medicine | DX: I10 Essential (primary) hypertension (principal); E78.5 Hyperlipidemia, unspecified; M85.80 Other specified disorders of bone density and structure, unspecified site; E55.9 Vitamin D deficiency, unspecified; R73.9 Hyperglycemia, unspecified | CPT/HCPCS: 80053; 80061; 82306 ==

== ENCOUNTER 2024-06-19 15:30 | Outpatient (CLI) | payer BC, SELFPAY ==
--- OUTSIDE RECORDS SUMMARY | 2024-06-19 15:33 | XMS_ITS | Clinical Summary ---
Author Organization [facility] Address [place], [place] [address] Care Team Providers Care Freight Car Inspector Name Role Phone Unknown, Doctor Primary Care Provider Unavailabl e Allergies No known active allergies Medications Medication Sig Dispensed Refills Start Date End Date Status MULTIVITAMIN TAB take 1 tablet by oral route once daily with food 0 12/13/2007 Active CPAP Autotitration cpap 4-20cm of H2O, with accessories dx780.57 1 0 01/08/2008 Active PREMARIN 0.625 MG/G VAGINAL CREAMIndications:U rinary tract infection, site not specified,Female stress incontinence Use one gram intravaginal Tuesday night 42 gram tube prn 09/04/2008 Active OMEPRAZOLE 20 MG CAP, DELAYED RELEASE take 1 pill 1 hour before breakfast 30 11 09/04/2008 Active BACTROBAN 2 % OINTMENT apply a small amount to the affected area by topical route 3 times per day 30 g 0 02/05/2009 Active BUDEPRION XL 300 MG 24 HR TAB TAKE ONE TABLET BY MOUTH DAILY 30 Each 3 04/22/2009 Active ERGOCALCIFEROL (VITAMIN D2) 50,000 UNIT CAPIndications:Vit ayala D deficiency take 1 capsule by oral route twice weekly for 4 weeks and labs work on week 5 8 0 06/23/2009 Active thyroid (ARMOUR THYROID) 30 mg tablet TAKE 1 TABLET (30 MG) BY ORAL ROUTE ONCE DAILY ON AN EMPTY STOMACH 30-60 MINUTES BEFORE BREAKFAST 30 Each 9 07/30/2009 Active levothyroxine (SYNTHROID) 50 mcg tablet take 1 tablet (50 mcg) by oral route once daily 45 0 08/01/2009 Active lisinopriL (PRINIVIL; ZESTRIL) 20 mg tablet Take 20 mg by mouth once daily. 04/03/2024 Active rosuvastatin (CRESTOR) 5 mg tablet Take 5 mg by mouth once daily. 02/16/2024 Active terbinafine HCL (LAMISIL) 250 mg tabletIndications: Dermatophytosis of nail,Tinea pedis of both feet Take 1 Tablet (250 mg) by mouth once daily. 84 Tablet 06/06/2024 5 Active Active Problems Problem Noted Date Diagnosed Date Major Depressive Disorder, moderate--improved SLEEP APNEA 11/28/2007 AHI- 21 very positional Malignant neoplasm of uterus, part unspecified 0 11/03/2007 Overview (11/03/2007): Noninvasive Grade I adenocarcinoma, hysterectomy at [place] 12/26 Encounters Date Type Department Care Team Description 06/06/2024 3:30 PM CDT Office Visit [facility] [address] [place] [address] Silvestre Bray, DPChris Consult (Left great toenail ) 06/06/2024 Travel from Last 3 Months Immunizations Name Administration Dates Next Due Td (Age >=7 Years) 10/24/2008,08/22/1999 Family History Medical History Relation Name Comments Cancer-colon Father age 83 Heart Disease Father Diabetes Mother Hyperlipidemia Mother Hypertension Mother Genetic Other Diabetes Mother ~Lazy eye son Relation Name Status Comments Brother Alive Father Alive Mother Alive Other Sister Alive Social History Tobacco Use Types Packs/Day Years Used Date Smoking Tobacco: Every Day Cigarettes Last attempted to quit: 01/07/2009 Smokeless Tobacco: Never Tobacco Cessation:Ready to Q uit: No; Counseling Given: Yes Alcohol Use Standard Drinks/Week Comments Yes 20 (1 standard drink = 0.6 oz pu re alcohol) 6 pack a week Sex and Gender Information Value Date Recorded Sex Assigned at Not on file Gender Identity Not on file Sexual Orientation Not on file Obstetrics History Last Filed Vital Signs Vital Sign Reading Time Taken Comments Blood Pressure 114/67 06/06/2024 3:46 PM CDT tow er Pulse 75 06/06/2024 3:46 PM CDT Temperature 37.2 ??C (98.9 ??F) 02/05/2009 3:30 PM CD T Respiratory Rate 16 12/25/2008 3:29 PM CDT Oxygen Saturation 98% 06/06/2024 3:46 PM CDT Inhaled Oxygen Concentration - - Weight 75.3 kg (166 lb) 06/06/2024 3:46 PM CDT Height 174 cm (5' 8.5) 12/25/2008 3:29 PM CDT Body Mass Index - - Plan of Treatment Upcoming Encounters Date Type Department Care Team (Late st Contact Info) Description 07/11/2024 3:15 PM PUBLIC HEALTH POLICY ANALYST Office Visit [facility] [address] [place] [address] Silvestre Bray DPM [address] [place] [address] 07/18/2024 3:45 PM PUBLIC HEALTH POLICY ANALYST Orders Only [facility] [address] [place] [address] Lab, [place] [facility] Maintenance Due Date Last Done Comments Tdap 1974 Depression screening for age 12+ 1975 HIV for age 15-65 1978 BMI (ht and wt on same day) for age 18+ 1981 Hepatitis C screening for age 18-79 1981 Colonoscopy through age 75 02/25/2008 Mammogram for age 45-75 02/25/2008 Lipids for age 45-75 11/02/2012 11/03/2007, 10/14/19 07 Zoster (shingles) series for age 50+ (1 of 2) 2013 Tetanus booster 10/24/2018 10/24/2008, 08/22/1999 Pap test for age 21-65 12/20/2020 8, 12/20/2017, 03/01/2011, Additional history exists COVID-19 vaccine series ( season) 2024 Influenza for age 50-64 04/22/2024 Pneumococcal series for age 6-64 Aged Out No longer eligible based on patient's age to complete this topic Procedures Procedure Name Priority Date/Time Associated Diagnosis Comments CVICU RN THIN PREP PAP SCREEN IMAGED Routine 12/20/2017 3:56 PM CDT LIPID PANEL Routine 11/03/2007 1:54 PM CDT Screening Lipid Disorders from Last 3 Months or Most Recently Relevant to Health Maintenance Results * CVICU RN THIN PREP PAP SCREEN IMAGED (12/20/2017 3:56 PM CDT) Case Report Gynecologic Cytology Report ? Case: [id number] ? Authorizing Provider: ??Misty Rust MD ??Collected: ? 12/20/2017 1556 ? First Screen: ?Jazmine Teresa ? Received: ?12/22/2017 1005 ? Specimen: ?CVICU RN ThinPrep Vial Screening, Cervical/Vaginal ? 12/28/2017 12:22 PM CDT [facility]- ENTRAL LABORATORY INTERPRETATION/ RESULT NEGATIVE FOR INTRAEPITHELIAL LESION OR MALIGNANCY (NIL) (none) 12/28/2017 12:22 PM CDT [facility] ENTRAL LABORATORY IMEN ADEQUACY Satisfactory for evaluation Endocervical component present 12/28/2017 12:22 PM CDT [facility]- ENTRAL LABORATORY HPV REQUEST HPV and PAP 12/28/2017 12:22 PM CDT [facility] ENTRAL LABORATORY Automated Review Successful 12/28/2017 12:22 PM CDT [facility] ENTRAL LABORATORY Comment:Specimen processed s uccessfully by automated sand conditioner machine device, ThinPrep Imaging System, [employer] ANCILLARY TESTING CVICU RN HPV Ordered, Please see separate report 12/28/2017 12:22 PM CDT [facility]-C ENTRAL LABORATORY Note The pap test is a screening technique, not a diagnostic procedure. ??It is used primarily to screen for squamous cancers and precursor lesions. ??Published studies have shown that it is subject to both false negative and false positive results. ??The pap test should not be used as the sole means to diagnose or exclude pre-malignant and malignant lesions. Interpreted at [facility] ([facility], [facility], [facility], [facility], [facility], [facility], [facility]) 12/28/2017 12:22 PM CDT [facility]-C [facility] Other (Cervical/Vagina l) 12/20/2017 3:56 PM CDT 12/22/2017 10:05 AM CDT Misty Rust MD PATHOLOGY/CYTOLO GY [facility]-CENTRAL LABORATORY [address] [place] [address], * (ABNORMAL) LIPID PANEL (11/03/2007 1:54 PM CDT) CHOLESTEROL,TOTAL 240(H) 110 - 199 mg/dL [facility] TRIGLYCERIDES 139 <150 mg/dL [facility] HDL CHOLESTEROL 58 >40 mg/dL [facility] CHOL/HDL RATIO 4.14 <4.51 [facility] LDL CHOLESTEROL 154(H) <131 mg/dL [facility] PATIENT STATUS Fasting [facility] Blood specimen (specimen) BLOOD SPECIMEN / Unknown 11/03/2007 1:54 PM CDT 11/03/2007 1:49 PM CDT Antonio Tuttle MD CHEMISTRY [facility] [address] [place] [address] from Last 3 Months or Most Recently Relevant to Health Maintenance Care Teams Freight Car Inspector Relationship Specialty Start Date End Date Unknown, Doctor . PCP - General 05/03/09
--- NOTE | 2024-06-19 16:00 | CRLHL7_ITS ---
For Patients: As a result of the Century Cures Act, medical imaging exams and procedure reports are released immediately into your electronic medical record. You may view this report before your referring provider. If you have questions, please contact your health care provider. BILATERAL SCREENING MAMMOGRAM WITH COMPUTER-AIDED DETECTION AND TOMOSYNTHESIS TECHNIQUE: CC and MLO views were obtained. These mammographic images have been obtained using full-field digital technique. These mammographic images were interpreted with the benefit of computer-aided detection. Breast Tomosynthesis was used in this interpretation. COMPARISON FILM: 05/05/22, 03/28/20, 12/20/17. FINDINGS: There are scattered areas of fibroglandular density IMPRESSION: There is no radiographic evidence for malignancy. ASSESSMENT: BI-RADS Category 1: Negative RECOMMENDATION: Routine screening mammogram in 1 year. A lay language report of this examination will be provided to the patient. Eladio Ni M.D. Diagnostic Radiologist [email or web address] MARISOL/Dictated by: Eladio Ni MD @ 06/20/2024 8:58:00 AM (Electronically Signed)
== END 2024-06-19 15:31 | disposition home or self-care (01) ==
LOC: MAMMO 15:31
PROVIDERS: PCP Family Medicine; Visit Provider Family Medicine
DX: Z12.31 Encounter for screening mammogram for malignant neoplasm of breast (principal)
CPT/HCPCS: 77063; 77067

== ENCOUNTER 2025-05-24 07:45 | Outpatient (CLI) | payer BC, SELFPAY | END 2025-05-24 07:46 | disposition home or self-care (01) | LOC: NFLDREF 05-27 11:41 | PROVIDERS: PCP Family Medicine; Referring Provider Family Medicine; Visit Provider Family Medicine | DX: M85.88 Other specified disorders of bone density and structure, other site (principal); E55.9 Vitamin D deficiency, unspecified; E78.5 Hyperlipidemia, unspecified; I10 Essential (primary) hypertension; R73.01 Impaired fasting glucose; R79.89 Other specified abnormal findings of blood chemistry | CPT/HCPCS: 80053; 80061; 82306; 86803 ==

== ENCOUNTER 2025-06-19 12:44 | Outpatient (CLI) | payer BC, SELFPAY ==
--- NOTE | 2025-06-19 13:00 | CRLHL7_ITS ---
For Patients: As a result of the Century Cures Act, medical imaging exams and procedure reports are released immediately into your electronic medical record. You may view this report before your referring provider. If you have questions, please contact your health care provider. INDICATION: Lung cancer screening. History of smoking. High risk patient with greater than 35 pack-year smoking history. TECHNIQUE: Low-dose lung cancer screening non-contrast CT chest. Dose reduction techniques were used. COMPARISON: None. FINDINGS: NODULES: Multiple calcified granulomas in the right middle lobe. LUNGS AND PLEURA: Subpleural scarring at the posterolateral right upper lobe. Similar findings at the posteromedial right lung apex. MEDIASTINUM: Calcified mediastinal and right hilar lymph nodes. CORONARY ARTERY CALCIFICATION: Mild. LIMITED UPPER ABDOMEN: Unremarkable. MUSCULOSKELETAL: Degenerative disc disease at C6-7 with extensive discogenic sclerotic endplate change. IMPRESSION: Negative for lung cancer screening purposes. LUNG-RADS CATEGORY: 2: Benign. RADIOLOGIST RECOMMENDATION: Continue annual screening, if eligible, with low-dose CT chest in 12 months. Please note that all CT scans at this facility use dose modulation, iterative reconstruction, and/or weight-based dosing when appropriate to reduce radiation dose to as low as reasonably achievable. Dictated by Eladio Ni MD @ 06/19/2025 1:32:36 PM (Electronically Signed)
--- NOTE | 2025-06-19 14:00 | CRLHL7_ITS ---
For Patients: As a result of the Century Cures Act, medical imaging exams and procedure reports are released immediately into your electronic medical record. You may view this report before your referring provider. If you have questions, please contact your health care provider. DXA BONE MINERAL DENSITY STUDY Reason for exam: Osteopenia. Current height (in): 69. Weight (lb): 165. Menopause age: 30. Ethnicity: White. 1. Have you had a previous hip or vertebral fracture? No. 2. Have you had any fractures during your adult life which did not result from significant trauma (e.g., auto accident)? No. 3. Did either of your parents have a hip fracture? No. 4. Do you smoke? Yes. 5. Have you ever taken Glucocorticoids? No. 6. Do you have rheumatoid arthritis? No. 7. Do you have secondary osteoporosis? No. 8. Do you drink 3 or more alcoholic drinks per day? No. 9. Are you being treated for osteoporosis? No. 10. Have you ever taken any of the following medications: Actonel, Evista, Fosamax, Miacalcin, Reclast, Boniva, Forteo, HRT (i.e. estrogen/hormone therapy), Protelos, Prolia, Vitamin D, Calcium, other ??? please specify. ANSWER: Yes, Vitamin D, calcium and Lisinopril. 11. Do you have any of the following medical conditions: Anorexia or bulimia, asthma or emphysema, end stage renal disease, hyperparathyroidism, any seizure disorders, cancer, inflammatory bowel diseases, hysterectomy, other ??? please specify. ANSWER: Yes, cancer, hysterectomy and osteomyelitis. 12. What was your maximum height (inches)? 69. 13. Do you perform weight bearing exercise regularly? No. 14. Do you regularly consume dairy products? Yes. 15. Do you drink caffeinated beverages? Yes. 16. At what age did your period start? 11. 17. Are you premenopausal? No. 18. How many full term pregnancies have you had? 3. 19. Have you ever missed your period for more than 6 months in a row (not including or menopause)? No. TECHNIQUE: Bone mineral density study was performed using the [employer]. FINDINGS: The results of the study expressed as bone mineral density (BMD) are as follows: Lumbar spine L1 to L4: BMD: 0.820 g/cm2. T-score: -2.1. Z-score: -0.5. Neck Left: BMD: 0.710 g/cm2. T-score: -1.3. Z-score: 0.1. Right: BMD: 0.727 g/cm2. T-score: -1.1 . Z-score: 0.3. Total Left: BMD: 0.841 g/cm2. T-score: -0.8 . Z-score: 0.2. Right: BMD: 0.914 g/cm2. T-score: -0.2. Z-score: 0.8. IMPRESSION: Osteopenia. *Comparison exams done prior to 01/2020 were performed on different unit, [facility]. COMPARISON: Compared with scan of 05/05/2022, the bone mineral density has decreased by 4.3 percent at the spine and increased by 6.3 percent at the hip. Compared with scan of 12/26/2017, the bone mineral density has decreased by 4.8 percent at the spine and increased by 0.6 percent at the hip. FRAX 10-year Fracture Risk Major Osteoporotic Fracture: 7.8 percent Hip Fracture: 1.0 percent Reported Risk Factors: [place] () Neck BMD=0.710, BMI=24.4 Eladio Ni M.D. Diagnostic Radiologist [email or web address] SP/Dictated by: Eladio Ni MD @ 06/19/2025 1:33:00 PM (Electronically Signed)
== END 2025-06-19 12:45 | disposition home or self-care (01) ==
LOC: CT 12:44
PROVIDERS: PCP Family Medicine; Visit Provider Family Medicine
DX: Z12.2 Encounter for screening for malignant neoplasm of respiratory organs (principal); F17.210 Nicotine dependence, cigarettes, uncomplicated; M85.88 Other specified disorders of bone density and structure, other site
CPT/HCPCS: 71271; 77080